=== PATIENT | male | born 1945 | race Caucasian/White ===

== ENCOUNTER → 2020-09-04 13:05 | Outpatient (BNVA) | payer MEDICARE, SELFPAY | PROVIDERS: PCP Internal Medicine; Referring Provider Internal Medicine; Visit Provider Internal Medicine | DX: I48.0 Paroxysmal atrial fibrillation (principal); Z51.81 Encounter for therapeutic drug level monitoring; Z79.01 Long term (current) use of anticoagulants | CPT/HCPCS: 85610; 99211 ==

== ENCOUNTER → 2020-10-02 13:06 | Outpatient (BNVA) | payer MEDICARE, SELFPAY | PROVIDERS: PCP Internal Medicine; Visit Provider Internal Medicine | DX: I48.0 Paroxysmal atrial fibrillation (principal); Z79.01 Long term (current) use of anticoagulants; Z51.81 Encounter for therapeutic drug level monitoring | CPT/HCPCS: 85610; 99211 ==

== ENCOUNTER → 2020-10-30 13:02 | Outpatient (BNVA) | payer MEDICARE, SELFPAY | PROVIDERS: PCP Internal Medicine; Visit Provider Internal Medicine | DX: I48.0 Paroxysmal atrial fibrillation (principal); Z79.01 Long term (current) use of anticoagulants; Z51.81 Encounter for therapeutic drug level monitoring | CPT/HCPCS: 85610; 99211 ==

== ENCOUNTER → 2020-11-27 13:01 | Outpatient (BNVA) | payer MEDICARE, SELFPAY | PROVIDERS: PCP Internal Medicine; Visit Provider Internal Medicine | DX: I48.0 Paroxysmal atrial fibrillation (principal); Z51.81 Encounter for therapeutic drug level monitoring; Z79.01 Long term (current) use of anticoagulants | CPT/HCPCS: 85610; 99211 ==

== ENCOUNTER → 2020-12-25 13:07 | Outpatient (BNVA) | payer MEDICARE, SELFPAY | PROVIDERS: PCP Internal Medicine; Visit Provider Internal Medicine | DX: I48.0 Paroxysmal atrial fibrillation (principal); Z51.81 Encounter for therapeutic drug level monitoring; Z79.01 Long term (current) use of anticoagulants | CPT/HCPCS: 85610; 99211 ==

== ENCOUNTER → 2021-01-22 13:04 | Outpatient (BNVA) | payer MEDICARE, SELFPAY | PROVIDERS: PCP Internal Medicine; Visit Provider Internal Medicine | DX: I48.0 Paroxysmal atrial fibrillation (principal); Z51.81 Encounter for therapeutic drug level monitoring; Z79.01 Long term (current) use of anticoagulants | CPT/HCPCS: 85610; 99211 ==

== ENCOUNTER → 2021-02-19 13:11 | Outpatient (BNVA) | payer MEDICARE, SELFPAY | PROVIDERS: PCP Internal Medicine; Visit Provider Internal Medicine | DX: I48.0 Paroxysmal atrial fibrillation (principal); Z79.01 Long term (current) use of anticoagulants; Z51.81 Encounter for therapeutic drug level monitoring | CPT/HCPCS: 85610; 99211 ==

== ENCOUNTER → 2021-02-25 09:19 | Outpatient (BNVA) | payer MEDICARE, SELFPAY | PROVIDERS: PCP Internal Medicine; Visit Provider Physician Assistant | DX: Z12.11 Encounter for screening for malignant neoplasm of colon (principal); Z79.01 Long term (current) use of anticoagulants | CPT/HCPCS: 99202 ==

== ENCOUNTER → 2021-03-12 13:06 | Outpatient (BNVA) | payer MEDICARE, SELFPAY | PROVIDERS: PCP Internal Medicine; Visit Provider Internal Medicine | DX: I48.0 Paroxysmal atrial fibrillation (principal); Z51.81 Encounter for therapeutic drug level monitoring; Z79.01 Long term (current) use of anticoagulants | CPT/HCPCS: 85610; 99211 ==

== ENCOUNTER 2021-03-15 14:20 | Inpatient (IN) | payer MEDICARE, SELFPAY ==
[2021-03-15] VITALS (9 sets, daily range): BP systolic 122–165; BP diastolic 60–79; PULSE 53–72; RESP 12–18; TEMP 36.2–36.8; O2SAT 100; BMI 27.7
--- NOTE | 2021-03-15 15:05 | ED_ITS ---
HPI - General Adult General Chief complaint: General Medical Stated complaint: abnormal labs Time Seen by Provider: 03/15/21 14:55 Source: patient and line service attendant Mode of arrival: ambulatory Limitations: no limitations and language barrier History of Present Illness HPI narrative: 75-year-old male with a past medical history of hypertension, hyperlipidemia, on chronic anticoagulation but unsure why here with complaints of abnormal labs. The patient is unsure of what lab it was. He told me he had routine screening labs done at his primary 2 days ago and he was called today to come to the ER for an evaluation. Has had some fatigue and weakness. Denies shortness of breath, chest pain, abdominal pain, falls, black or bloody stools. Related Data Home Medications Medication Instructions Recorded Confirmed aspirin 81 mg tablet,delayed 81 mg PO DAILY 02/19/21 02/25/21 release atorvastatin 80 mg tablet 80 mg PO BEDTIME 02/19/21 02/25/21 cholecalciferol (vitamin D3) 25 25 mcg PO DAILY 02/19/21 02/25/21 mcg (1,000 unit) tablet furosemide 20 mg tablet 20 mg PO DAILY 02/19/21 02/19/21 lisinopril 40 mg tablet 40 mg PO DAILY 02/19/21 02/25/21 tamsulosin 0.4 mg capsule 0.4 mg PO DAILY 02/19/21 02/25/21 travoprost 0.004 % eye drops 1 drp OPHTHALMIC (EYE) BEDTIME 02/19/21 02/25/21 Previous Rx's Medication Instructions Recorded warfarin 5 mg tablet 5 mg PO DAILY #90 tab 09/04/20 bisacodyl 5 mg tablet,delayed 10 mg PO ONCE 1 Days #2 tab 02/25/21 release polyethylene glycol 3350 17 238 g PO ONCE 1 Days #238 g 02/25/21 gram/dose oral powder Allergies Allergy/AdvReac Type Severity Reaction Status Date / Time No Known Allergies Allergy Verified 03/12/21 13:24 [No Known Allergies*] Review of Systems Review of Systems: Yes all other systems are reviewed and are negative Constitutional: Constitutional: Reports no additional constitutional complaints, Denies body ache(s), Denies chills, Reports fatigue, Denies fever(s), Denies headache(s) and Reports weakness Eyes: Eyes: Reports no additional eye complaints and Denies change in vision ENT: Reports system reviewed and no additional complaints, except as documented, Denies dizziness, Denies headache(s), Denies nasal congestion, Denies nasal discharge and Denies neck pain Cardiovascular: Cardiovascular: Reports no additional cardiovascular complaints, Denies chest pain, Denies leg edema and Denies dyspnea Respiratory: Respiratory: Reports no additional respiratory complaints, Denies cough and Denies dyspnea Gastrointestinal: Gastrointestinal: Reports no additional gastrointestinal complaints, Denies abdominal pain, Denies hematochezia, Denies diarrhea, Denies nausea and Denies vomiting Genitourinary: Genitourinary: Denies urinary incontinence Musculoskeletal: Musculoskeletal: Reports no additional musculoskeletal complaints, Denies back pain, Denies arthralgias, Denies joint swelling, Denies neck pain, Denies numbness and Denies tingling Integumentary/Breasts: Skin/Breast: Reports system reviewed and no additional complaints, except as docu and Denies rash Neurologic: Reports system reviewed and no additional complaints, except as documented, Denies Abnormal speech present, Denies dizziness, Denies headache(s), Denies numbness, Denies tingling and Reports weakness Endocrine: Endocrine: Reports fatigue [facility] Past Medical History Attestation statement: The following information was validated with the patient. Source: old records reviewed and nursing notes reviewed Medical History Atrial fibrillation Dyslipidemia HTN (hypertension) Tubular adenoma Family History Family History Father Throat cancer Brother Prostate cancer Social History Social History Household Members: None Alcohol intake: never Smoking Status: Never smoker Use of substances other than those prescribed or required for medical reasons: No Advance Directives: No Advance Directives Information Provided: Yes Current occupational status: retired Physical Exam Vital Signs: Vital Signs: Last Vital Signs Temp 98.3 F 03/15/21 17:35 Pulse 57 03/15/21 17:35 Resp 18 03/15/21 17:35 BP 162/63 H 03/15/21 17:35 Pulse Ox 100 03/15/21 16:48 Body Mass Index 27.7 Const: General: cooperative, healthy appearing, comfortable and no acute distress Orientation/consciousness: patient oriented x3 Limitations: no limitations HENMT: Head: Yes normal to inspection Ears: hearing grossly normal bilaterally General nose exam: Normal external nose present Face and sinus: Yes normal facial exam Mouth: Normal oral and palatal mucosa present Throat: Yes posterior oropharynx normal Eyes: General: appearance normal, both eyes and all related structures Pupils: Equal, round and reactive pupils present Neck: Neck: Yes normal visual inspection Chest: Chest palpation & inspection: normal inspection of the chest Resp: Effort & Inspection: normal respiratory effort Auscultation: clear to auscultation bilaterally Cardio: Rate: regular rate Rhythm: regular rhythm Peripheral pulses: Peripheral pulses 2+ throughout GI: Inspection: Yes normal to inspection Palpation (GI): Soft to palpation and nontender Auscultation: normal bowel sounds Back/Spine/Pelvis: Thoracic/Lumbar Spine: thoracic and lumbar spine normal to inspection Skin: General skin exam: no rashes or lesions noted Neuro: General: patient oriented x3, no focal motor deficits and normal sensation to monofilament Cranial nerves: Yes Equal, round and reactive pupils present Cognition (Neuro): normal cognition Speech: No Abnormal speech present Gait exam (Neuro): Normal gait present Motor exam (neuro): 5/5 motor strength present throughout Extrem: General: Yes normal to inspection Course Course Course Narrative: 75-year-old male here for abnormal labs but he is unsure what lab it was. He does tell me it was part of a routine screening. He is on chronic Coumadin for unknown reason for patient. C/o fatigue and weakness. Will check labs -labs show a microcytic anemia. Likely ENRIQUE. Symptomatic with generalized weakness and fatigue. No active bleeding. Stool exam shows brown stool which is heme negative. Labs show mildly elevated renal function. INR is 2.5 which is therapeutic. Orthostatics negative. Patient was consented for blood with a plugging machine operator. Will plan for admission I did discuss with Imani SCHULTZ who accepted admission of the patient Medical Decision Making Medical Records Medical records reviewed: Yes I reviewed the patient's medical records. Lab Data Lab results reviewed: Yes I reviewed the patient's lab results. Result diagrams: 03/15/21 15:12 03/15/21 15:12 Labs: Lab Results 03/15/21 03/15/21 03/15/21 Range/Units 15:12 15:12 15:12 WBC 4.5 L (4.8-10.8) X10*3/uL RBC 3.21 L (4.60-5.80) X10*6/uL Hgb 7.0 L* (14.0-18.0) g/dl Hct 24.7 L (42-52) % MCV 76.9 L (80-98) fL MCH 21.8 L (27.0-33.0) pg MCHC 28.3 L (31.0-36.0) g/dl RDW 19.2 H (11.0-16.0) % Plt Count 203 (160-400) X10*3/uL MPV 9.5 (9.4-12.4) fL Immature Gran % (Auto) 0.2 (0.0-0.4) % Neut % (Auto) 52.2 (45-73) % Lymph % (Auto) 26.7 (20-40) % [place] % (Auto) 15.1 H (2-11) % Eos % (Auto) 5.6 H (0-4) % Baso % (Auto) 0.2 (0-2) % Lymph # (Auto) 1.2 (1.2-4.9) X10*3/uL [place] # (Auto) 0.7 (0.1-1.2) X10*3/uL Eos # (Auto) 0.3 (0.0-0.4) X10*3/uL Baso # (Auto) 0.0 (0.0-0.2) X10*3/uL Abs Immat Gran (auto) 0.01 (0.00-0.03) X10*3/uL Absolute Neuts (auto) 2.4 (2.0-8.3) X10*3/uL Absolute Nucleated RBC 0.000 (0.0-0.012) X10*3/uL Nucleated RBC % (auto) 0.0 (0.0-0.2) /100WBC PT 29.4 H (10.8-13.0) SEC INR 2.5 H (0.9-1.1) Sodium 138 (135-145) mmol/L Potassium 4.1 (3.3-5.1) mmol/L Chloride 107 (96-108) mmol/L Carbon Dioxide 24 (22-29) mmol/L Anion Gap 11 L (12-20) BUN 18 H (9-16) mg/dL Creatinine 1.44 H (0.5-1.4) mg/dL Estim Creat Clear Calc 48.7 Estimated GFR 48 Random Glucose 99 (60-115) mg/dL Calcium 8.3 L (8.4-10.2) mg/dL Iron 20 L (45-160) mcg/dL TIBC 444 H (228-428) mcg/dL % Saturation 5 L (15-50) % Unsat Iron Binding 424 ug/dL Total Bilirubin (0.0-1.0) mg/dL Direct Bilirubin (0.0-0.5) mg/dL AST (5-37) U/L ALT (0-40) U/L Alkaline Phosphatase (39-117) U/L Total Protein (6.5-8.0) g/dL Albumin (3.5-5.0) g/dL Urine Color Urine Appearance Urine pH (5.0-8.0) Ur Specific [place] (1.005-1.025) Urine Protein (NEG-TRACE) MG/DL Urine Glucose (UA) (NEG) MG/DL Urine Ketones (NEG) MG/DL Urine Blood (NEG) Urine Nitrite (NEG) Ur Leukocyte Esterase (NEG) Stool Occult Blood (NEGATIVE) COVID-19 (NILAM) (Negative) COVID-19 Clin Com Blood Type Antibody Screen Crossmatch 03/15/21 03/15/21 03/15/21 Range/Units 15:12 15:55 15:55 WBC (4.8-10.8) X10*3/uL RBC (4.60-5.80) X10*6/uL Hgb (14.0-18.0) g/dl Hct (42-52) % MCV (80-98) fL MCH (27.0-33.0) pg MCHC (31.0-36.0) g/dl RDW (11.0-16.0) % Plt Count (160-400) X10*3/uL MPV (9.4-12.4) fL Immature Gran % (Auto) (0.0-0.4) % Neut % (Auto) (45-73) % Lymph % (Auto) (20-40) % [place] % (Auto) (2-11) % Eos % (Auto) (0-4) % Baso % (Auto) (0-2) % Lymph # (Auto) (1.2-4.9) X10*3/uL [place] # (Auto) (0.1-1.2) X10*3/uL Eos # (Auto) (0.0-0.4) X10*3/uL Baso # (Auto) (0.0-0.2) X10*3/uL Abs Immat Gran (auto) (0.00-0.03) X10*3/uL Absolute Neuts (auto) (2.0-8.3) X10*3/uL Absolute Nucleated RBC (0.0-0.012) X10*3/uL Nucleated RBC % (auto) (0.0-0.2) /100WBC PT (10.8-13.0) SEC INR (0.9-1.1) Sodium (135-145) mmol/L Potassium (3.3-5.1) mmol/L Chloride (96-108) mmol/L Carbon Dioxide (22-29) mmol/L Anion Gap (12-20) BUN (9-16) mg/dL Creatinine (0.5-1.4) mg/dL Estim Creat Clear Calc Estimated GFR Random Glucose (60-115) mg/dL Calcium (8.4-10.2) mg/dL Iron (45-160) mcg/dL TIBC (228-428) mcg/dL % Saturation (15-50) % Unsat Iron Binding ug/dL Total Bilirubin 0.8 (0.0-1.0) mg/dL Direct Bilirubin 0.3 (0.0-0.5) mg/dL AST 18 (5-37) U/L ALT 19 (0-40) U/L Alkaline Phosphatase 121 H (39-117) U/L Total Protein 7.2 (6.5-8.0) g/dL Albumin 4.0 (3.5-5.0) g/dL Urine Color Urine Appearance Urine pH (5.0-8.0) Ur Specific [place] (1.005-1.025) Urine Protein (NEG-TRACE) MG/DL Urine Glucose (UA) (NEG) MG/DL Urine Ketones (NEG) MG/DL Urine Blood (NEG) Urine Nitrite (NEG) Ur Leukocyte Esterase (NEG) Stool Occult Blood NEGATIVE (NEGATIVE) COVID-19 (NILAM) (Negative) COVID-19 Clin Com Blood Type A Positive Antibody Screen NEGATIVE Crossmatch See Detail 03/15/21 03/15/21 Range/Units 16:16 16:16 WBC (4.8-10.8) X10*3/uL RBC (4.60-5.80) X10*6/uL Hgb (14.0-18.0) g/dl Hct (42-52) % MCV (80-98) fL MCH (27.0-33.0) pg MCHC (31.0-36.0) g/dl RDW (11.0-16.0) % Plt Count (160-400) X10*3/uL MPV (9.4-12.4) fL Immature Gran % (Auto) (0.0-0.4) % Neut % (Auto) (45-73) % Lymph % (Auto) (20-40) % [place] % (Auto) (2-11) % Eos % (Auto) (0-4) % Baso % (Auto) (0-2) % Lymph # (Auto) (1.2-4.9) X10*3/uL [place] # (Auto) (0.1-1.2) X10*3/uL Eos # (Auto) (0.0-0.4) X10*3/uL Baso # (Auto) (0.0-0.2) X10*3/uL Abs Immat Gran (auto) (0.00-0.03) X10*3/uL Absolute Neuts (auto) (2.0-8.3) X10*3/uL Absolute Nucleated RBC (0.0-0.012) X10*3/uL Nucleated RBC % (auto) (0.0-0.2) /100WBC PT (10.8-13.0) SEC INR (0.9-1.1) Sodium (135-145) mmol/L Potassium (3.3-5.1) mmol/L Chloride (96-108) mmol/L Carbon Dioxide (22-29) mmol/L Anion Gap (12-20) BUN (9-16) mg/dL Creatinine (0.5-1.4) mg/dL Estim Creat Clear Calc Estimated GFR Random Glucose (60-115) mg/dL Calcium (8.4-10.2) mg/dL Iron (45-160) mcg/dL TIBC (228-428) mcg/dL % Saturation (15-50) % Unsat Iron Binding ug/dL Total Bilirubin (0.0-1.0) mg/dL Direct Bilirubin (0.0-0.5) mg/dL AST (5-37) U/L ALT (0-40) U/L Alkaline Phosphatase (39-117) U/L Total Protein (6.5-8.0) g/dL Albumin (3.5-5.0) g/dL Urine Color STRAW Urine Appearance CLEAR Urine pH 5.5 (5.0-8.0) Ur Specific [place] <= 1.005 (1.005-1.025) Urine Protein NEG (NEG-TRACE) MG/DL Urine Glucose (UA) NEG (NEG) MG/DL Urine Ketones NEG (NEG) MG/DL Urine Blood NEG (NEG) Urine Nitrite NEG (NEG) Ur Leukocyte Esterase NEG (NEG) Stool Occult Blood (NEGATIVE) COVID-19 (NILAM) Negative (Negative) COVID-19 Clin Com See Note Blood Type Antibody Screen Crossmatch Discharge Plan Discharge Clinical Impression: Anemia Patient Disposition: Admitted As Inpatient Prescriptions: No Action polyethylene glycol 3350 [Miralax] 17 gram/dose powder 238 g PO ONCE 1 Days Qty: 238 RF: 0 bisacodyl [Dulcolax (bisacodyl)] 5 mg tablet,delayed release (DR/EC) 10 mg PO ONCE 1 Days Qty: 2 RF: 0 warfarin 5 mg tablet 5 mg PO DAILY Qty: 90 RF: 0 lisinopril 40 mg tablet 40 mg PO DAILY RF: 0 cholecalciferol (vitamin D3) 25 mcg (1,000 unit) tablet 25 mcg PO DAILY RF: 0 furosemide 20 mg tablet 20 mg PO DAILY RF: 0 travoprost 0.004 % drops 1 drp ophthalmic (eye) BEDTIME RF: 0 aspirin 81 mg tablet,delayed release (DR/EC) 81 mg PO DAILY RF: 0 atorvastatin 80 mg tablet 80 mg PO BEDTIME RF: 0 tamsulosin 0.4 mg capsule 0.4 mg PO DAILY RF: 0
[2021-03-15 15:17] LABS: MANUAL DIFF FLAG NO
[2021-03-15 15:18] LABS: Basophils Percent Auto 0.2 % (0-2); Platelet Count 203 X10*3/uL (160-400)
[2021-03-15 15:22] LABS: Eosinophils Absolute Auto 0.3 X10*3/uL (0.0-0.4); Eosinophils Percent Auto 5.6 % (0-4); Hematocrit 24.7 % (42-52); Imm Gran Abs Auto 0.01 X10*3/uL (0.00-0.03); Imm Gran Pct Auto 0.2 % (0.0-0.4); Lymphocytes Absolute Auto 1.2 X10*3/uL (1.2-4.9); Lymphocytes Percent Auto 26.7 % (20-40); Mean Corpuscular HGB Conc 28.3 g/dl (31.0-36.0); Mean Corpuscular Hemoglobin 21.8 pg (27.0-33.0); Mean Corpuscular Volume 76.9 fL (80-98); Mean Platelet Volume 9.5 fL (9.4-12.4); Monocytes Absolute Auto 0.7 X10*3/uL (0.1-1.2); Monocytes Percent Auto 15.1 % (2-11); Neutrophils Absolute Auto 2.4 X10*3/uL (2.0-8.3); Neutrophils Percent Auto 52.2 % (45-73); Red Blood Count 3.21 X10*6/uL (4.60-5.80); Red Cell Distribution Width 19.2 % (11.0-16.0); White Blood Count 4.5 X10*3/uL (4.8-10.8)
[2021-03-15 15:23] LABS: INTERNATIONAL NORM RATIO 2.5 (0.9-1.1); Prothrombin Time 29.4 SEC (10.8-13.0)
[2021-03-15 15:46] LABS: Anion Gap 11 (12-20); Blood Urea Nitrogen 18 mg/dL (9-16); Calcium 8.3 mg/dL (8.4-10.2); Carbon Dioxide 24 mmol/L (22-29); Chloride 107 mmol/L (96-108); Creatinine Clr Calc Pharmacy 48.7; Estimated Glomerular Filt Rate 48; Glucose Random 99 mg/dL (60-115); Potassium 4.1 mmol/L (3.3-5.1); Sodium 138 mmol/L (135-145)
[2021-03-15 15:48] LABS: Alanine Aminotransferase 19 U/L (0-40); Alkaline Phosphatase 121 U/L (39-117); Aspartate Amino Transferase 18 U/L (5-37); Bilirubin Direct 0.3 mg/dL (0.0-0.5); Bilirubin Total 0.8 mg/dL (0.0-1.0); Total Protein 7.2 g/dL (6.5-8.0)
[2021-03-15 16:15] LABS: OBS Int Ctl Valid YES; OBS1 NEGATIVE (NEGATIVE)
[2021-03-15 16:29] LABS: Glucose Urine UA NEG (NEG); Leukocyte Esterase Urine NEG (NEG); Nitrite Urine NEG (NEG); PH 5.5 (5.0-8.0); Specific Gravity - Urine <= 1.005 (1.005-1.025); Urine Blood NEG (NEG); Urine Ketones NEG (NEG); Urine Protein NEG (NEG-TRACE)
[2021-03-15 16:30] LABS: Appearance Urine CLEAR; Color Urine STRAW
[2021-03-15 16:45] LABS: COVID-19 Test Negative (Negative)
[2021-03-15 17:43] LABS: Iron 20 mcg/dL (45-160); Percent Iron Saturation 5 % (15-50); Total Iron Binding Capacity 444 mcg/dL (228-428); Unsaturated Iron Binding 424 ug/dL
--- NOTE | 2021-03-15 17:45 | ECG_ITS ---
Test Reason : GENERAL MEDICAL Blood Pressure : / mmHG Vent. Rate : 059 BPM Atrial Rate : 045 BPM P-R Int : 000 ms QRS Dur : 100 ms QT Int : 440 ms P-R-T Axes : 000 -29 -01 degrees QTc Int : 435 ms Atrial fibrillation with slow ventricular response Incomplete right bundle branch block Cannot rule out Anteroseptal infarct , age undetermined Abnormal ECG No previous ECGs available Referred By: Generic ED Physician Electronically Signed By:KATHERYN ASH
--- NOTE | 2021-03-15 17:52 | PC.NURSE ---
PT TOLERATING RBC TRANSFUSION WELL, VS WNL, AFIB HR IN 60S ON MONITOR. HOSPITALIST TO ADMIT, PT AWARE OF PLAN FOR CARE
--- NOTE | 2021-03-15 18:02 | P.HPHOSP_ITS ---
History of Present Illness Date of Service: 03/15/21 <ANTOINE Aviles - Last Filed: 03/16/21 06:59> Chief Complaint: Abnormal labs <ANTOINE Aviles - Last Filed: 03/16/21 06:59> This is a 75-year-old Slovenian-speaking male who was sent to the emergency department due to abnormal labs. Patient states that he had routine labs drawn and was called by his PCP to come to the emergency department for evaluation. Lab work revealed anemia with H/H of 7.0/24.7. Stool occult blood was negative. Patient denies any dark or bloody stools. He is anticoagulated with Coumadin for atrial fibrillation. He states that he was feeling weak last week but at the moment he feels okay. He denies any dizziness shortness of breath or chest pain. 1 unit of blood was ordered in the emergency department and transfusion has been initiated. It appears he was seen recently in the outpatient setting for colonoscopy screening, it appears that this has not been scheduled at this time. <ANTOINE Aviles - Last Filed: 03/16/21 06:59> Review of Systems Review of Systems: Yes all other systems are reviewed and are negative <ANTOINE Aviles - Last Filed: 03/16/21 06:59> Constitutional: Constitutional: Denies chills and Denies fever(s) <ANTOINE Aviles - Last Filed: 03/16/21 06:59> Cardiovascular: Cardiovascular: Denies chest pain <ANTOINE Aviles - Last Filed: 03/16/21 06:59> Respiratory: Respiratory: Denies cough <ANTOINE Aviles - Last Filed: 03/16/21 06:59> Gastrointestinal: Gastrointestinal: Denies abdominal pain, Denies melena, Denies hematochezia, Denies change in bowel habits, Denies diarrhea, Denies nausea and Denies vomiting <ANTOINE Aviles - Last Filed: 03/16/21 06:59> [facility] Medical History: Medical History Atrial fibrillation Dyslipidemia HTN (hypertension) Tubular adenoma <ANTOINE Aviles - Last Filed: 03/16/21 06:59> Functional capacity: independent ambulation <ANTOINE Aviles - Last Filed: 03/16/21 06:59> Family History: Family History Father Throat cancer Brother Prostate cancer <ANTOINE Aviles - Last Filed: 03/16/21 06:59> Social History: Social History Household Members: None Housing: Apartment Do you presently have visiting nurse or other home services: No Alcohol intake: never Smoking Status: Never smoker Use of substances other than those prescribed or required for medical reasons: No Currently Displaying Signs/Symptoms of Drug Intoxication Withdrawal: No Have you been hit, kicked, punched, or otherwise hurt by someone within the past year? If so, by whom?: No Do you feel safe in your current relationship?: Yes Is there a partner from a previous relationship who is making you feel unsafe now?: No Are you made to feel afraid or neglected: No Advance Directives: No Advance Directives Information Provided: Yes Do you have thoughts of harming others: None Do you have a plan to hurt others: No Plan Recently lost weight without trying: No Nutrition Risks: No Nutritional Risk Poor oral hygiene: No Current occupational status: retired <ANTOINE Aviles - Last Filed: 03/16/21 06:59> Meds Allergies/Adverse reactions: Allergies Allergy/AdvReac Type Severity Reaction Status Date / Time No Known Allergies Allergy Verified 03/12/21 13:24 [No Known Allergies*] <ANTOINE Aviles - Last Filed: 03/16/21 06:59> Active Medications: Current Medications Generic Name Dose Route Start Last Admin Trade Name Freq PRN Reason Stop Dose Admin Pharmacy Consult 1 each 03/15/21 16:09 Consult Rx Perform Med Rec MISCELLANE ONCE PRN Consult order <ANTOINE Aviles - Last Filed: 03/16/21 06:59> Home medications: Home Medications Medication Instructions Recorded Confirmed Last Taken Type aspirin 81 mg tablet,delayed 81 mg PO DAILY 02/19/21 03/15/21 Unknown History release atorvastatin 80 mg tablet 80 mg PO BEDTIME 02/19/21 03/15/21 Unknown History cholecalciferol (vitamin D3) 25 25 mcg PO DAILY 02/19/21 03/15/21 Unknown History mcg (1,000 unit) tablet furosemide 20 mg tablet 20 mg PO DAILY 02/19/21 03/15/21 Unknown History lisinopril 40 mg tablet 40 mg PO DAILY 02/19/21 03/15/21 Unknown History travoprost 0.004 % eye drops 1 drp OPHTHALMIC (EYE) BEDTIME 02/19/21 03/15/21 Unknown History <ANTOINE Aviles Last Filed: 03/16/21 06:59> Physical Exam Vital Signs and Narrative: Vital Signs: Last Vital Signs Temp 98.2 F 03/15/21 17:49 Pulse 61 03/15/21 17:49 Resp 14 03/15/21 17:49 BP 162/73 H 03/15/21 17:49 Pulse Ox 100 03/15/21 16:48 Body Mass Index 27.7 <ANTOINE Aviles Last Filed: 03/16/21 06:59> Const: General: comfortable, no acute distress, alert and awake <ANTOINE Aviles Last Filed: 03/16/21 06:59> Nutritional Appearance: well nourished <ANTOINE Aviles Last Filed: 03/16/21 06:59> Orientation/consciousness: patient oriented x3 <ANTOINE Aviles Last Filed: 03/16/21 06:59> HENMT: Head: Yes normocephalic and Yes atraumatic <ANTOINE Aviles Last Filed: 03/16/21 06:59> Eyes: Sclerae: sclerae normal <ANTOINE Aviles Last Filed: 03/16/21 06:59> Chest: Chest palpation & inspection: normal inspection of the chest <ANTOIEN Aviles Last Filed: 03/16/21 06:59> Resp: Effort & Inspection: normal respiratory effort and no respiratory distress <ANTOINE Aviles Last Filed: 03/16/21 06:59> Cardio: Rate: regular rate <ANTOINE Aviles Last Filed: 03/16/21 06:59> Rhythm: abnormal rhythm irregularly irregular <ANTOINE Aviles Last Filed: 03/16/21 06:59> GI: Palpation (GI): Soft to palpation and nontender <ANTOINE Aviles - Last Filed: 03/16/21 06:59> Skin: General skin exam: no rashes or lesions noted <ANTOINE Aviles - Last Filed: 03/16/21 06:59> Neuro: General: patient oriented x3 <ANTOINE Aviles - Last Filed: 03/16/21 06:59> Cranial nerves: Yes CN's II-XII intact bilaterally and Yes Bilaterally intact EOM present <ANTOINE Aviles Last Filed: 03/16/21 06:59> Extrem: General: Yes normal to inspection <ANTOINE Aviles - Last Filed: 03/16/21 06:59> Results Labs CBC and Chem 7: : 03/16/21 07:06 03/16/21 07:06 <ANTOINE Aviles - Last Filed: 03/16/21 06:59> Labs: Laboratory Results - last 24 hr 03/15/21 03/15/21 03/15/21 15:12 15:12 15:12 MCV 76.9 L MCH 21.8 L MCHC 28.3 L RDW 19.2 H Plt Count 203 MPV 9.5 Immature Gran % (Auto) 0.2 Neut % (Auto) 52.2 Lymph % (Auto) 26.7 [place] % (Auto) 15.1 H Eos % (Auto) 5.6 H Baso % (Auto) 0.2 Lymph # (Auto) 1.2 [place] # (Auto) 0.7 Eos # (Auto) 0.3 Baso # (Auto) 0.0 Abs Immat Gran (auto) 0.01 Absolute Neuts (auto) 2.4 Absolute Nucleated RBC 0.000 Nucleated RBC % (auto) 0.0 PT 29.4 H INR 2.5 H Anion Gap 11 L Estim Creat Clear Calc 48.7 Estimated GFR 48 Random Glucose 99 Calcium 8.3 L Iron 20 L TIBC 444 H % Saturation 5 L Unsat Iron Binding 424 Total Bilirubin Direct Bilirubin AST ALT Alkaline Phosphatase Total Protein Albumin Urine Color Urine Appearance Urine pH Ur Specific [place] Urine Protein Urine Glucose (UA) Urine Ketones Urine Blood Urine Nitrite Ur Leukocyte Esterase Stool Occult Blood COVID-19 (NILAM) COVID-19 Clin Com Blood Type Antibody Screen Crossmatch 03/15/21 03/15/21 03/15/21 15:12 15:55 15:55 MCV MCH MCHC RDW Plt Count MPV Immature Gran % (Auto) Neut % (Auto) Lymph % (Auto) [place] % (Auto) Eos % (Auto) Baso % (Auto) Lymph # (Auto) [place] # (Auto) Eos # (Auto) Baso # (Auto) Abs Immat Gran (auto) Absolute Neuts (auto) Absolute Nucleated RBC Nucleated RBC % (auto) PT INR Anion Gap Estim Creat Clear Calc Estimated GFR Random Glucose Calcium Iron TIBC % Saturation Unsat Iron Binding Total Bilirubin 0.8 Direct Bilirubin 0.3 AST 18 ALT 19 Alkaline Phosphatase 121 H Total Protein 7.2 Albumin 4.0 Urine Color Urine Appearance Urine pH Ur Specific [place] Urine Protein Urine Glucose (UA) Urine Ketones Urine Blood Urine Nitrite Ur Leukocyte Esterase Stool Occult Blood NEGATIVE COVID-19 (NILAM) COVID-[employer] Com Blood Type A Positive Antibody Screen NEGATIVE Crossmatch See Detail 03/15/21 03/15/21 16:16 16:16 MCV MCH MCHC RDW Plt Count MPV Immature Gran % (Auto) Neut % (Auto) Lymph % (Auto) [place] % (Auto) Eos % (Auto) Baso % (Auto) Lymph # (Auto) [place] # (Auto) Eos # (Auto) Baso # (Auto) Abs Immat Gran (auto) Absolute Neuts (auto) Absolute Nucleated RBC Nucleated RBC % (auto) PT INR Anion Gap Estim Creat Clear Calc Estimated GFR Random Glucose Calcium Iron TIBC % Saturation Unsat Iron Binding Total Bilirubin Direct Bilirubin AST ALT Alkaline Phosphatase Total Protein Albumin Urine Color STRAW Urine Appearance CLEAR Urine pH 5.5 Ur Specific [place] <= 1.005 Urine Protein NEG Urine Glucose (UA) NEG Urine Ketones NEG Urine Blood NEG Urine Nitrite NEG Ur Leukocyte Esterase NEG Stool Occult Blood COVID-19 (NILAM) Negative COVID-[facility] Clin Com See Note Blood Type Antibody Screen Crossmatch <ANTOINE Aviles - Last Filed: 03/16/21 06:59> Assessment and Plan (1) Iron deficiency anemia: Problem details: Chronic iron deficiency anemia <ANTOINE Aviles - Last Filed: 03/16/21 06:59> Status: Acute <ANTOINE Aviles - Last Filed: 03/16/21 06:59> This is a 75-year-old Slovenian-speaking male with history of atrial fibrillation on Coumadin, hypertension sent to the emergency department with abnormal labs found to have anemia. Microcytic anemia Iron studies consistent with iron deficiency. Heme-negative stool. h/o adenoma on colonoscopy from 2014, plan for outpatient colonoscopy in near future, but has not been scheduled yet -blood transfusion started in ED -clears -recheck FOBT -GI evaluation -hold Coumadin -follow CBC atrial fibrillation rate controlled -hold Coumadin med rec pending at this time dvt ppx - mechanical devices code status - full code attending: dr. zhang <ANTOINE Aviles - Last Filed: 03/16/21 06:59>
[2021-03-15 18:03] LABS: Ferritin 14 ng/mL (20-250)
--- NOTE | 2021-03-15 18:30 | PM.EVENT ---
Event Note Date of Service: 03/15/21 Event Note: Patient seen examined case discussed with APC 75-year-old gentleman sent by PCP due to anemia hematocrit 24.7 patient denies GI bleed is on Coumadin for atrial fibrillation has been feeling weak for 1 week On examination Awake alert no distress Lungs clear to auscultation Heart regular Extremities no edema Iron deficiency anemia ? likely due to GI blood loss last hematocrit is from 2 years ago was 31, INR is therapeutic since patient has generalized weakness will transfuse him with 1 unit of packed RBC hold Coumadin obtain GI consultation for possible endoscopy, continue home medication except hold aspirin and Coumadin
--- NOTE | 2021-03-15 20:29 | PC.NURSE ---
report given to RN
--- NOTE | 2021-03-15 20:43 | PC.NURSE ---
PT TO BE TRANSFERRED TO [facility]. PT REMAINS IN AFIB, STABLE AT THIS TIME. DISCUSSED WITH SURVEILLANCE OBSERVER, PT APPROVED FOR TRANSFER.
[2021-03-15] MEDS: 0.9 % Sodium Chloride Flush 3 ML SYRINGE IVFLUSH (21:48)
[2021-03-16] VITALS: BP 151/75; PULSE 58; RESP 14; TEMP 36.4; O2SAT 100
[2021-03-16 04:00] VITALS: BP 156/68; PULSE 54; RESP 15; TEMP 36.2; O2SAT 99
[2021-03-16 07:21] LABS: Hematocrit 27.2 % (42-52); Hemoglobin 7.8 g/dl (14.0-18.0); Mean Corpuscular HGB Conc 28.7 g/dl (31.0-36.0); Mean Corpuscular Hemoglobin 22.4 pg (27.0-33.0); Mean Corpuscular Volume 78.2 fL (80-98); Mean Platelet Volume 9.8 fL (9.4-12.4); Platelet Count 186 X10*3/uL (160-400); Red Blood Count 3.48 X10*6/uL (4.60-5.80); Red Cell Distribution Width 19.4 % (11.0-16.0); White Blood Count 4.8 X10*3/uL (4.8-10.8)
[2021-03-16 07:25] LABS: INTERNATIONAL NORM RATIO 2.2 (0.9-1.1); Prothrombin Time 26.7 SEC (10.8-13.0)
[2021-03-16] MEDS: 0.9 % Sodium Chloride Flush 3 ML SYRINGE IVFLUSH ×2 (07:30→15:37)
[2021-03-16 07:49] LABS: Anion Gap 9 (12-20); Blood Urea Nitrogen 17 mg/dL (9-16); Calcium 8.3 mg/dL (8.4-10.2); Carbon Dioxide 25 mmol/L (22-29); Chloride 112 mmol/L (96-108); Creatinine Clr Calc Pharmacy 62.6; Estimated Glomerular Filt Rate > 60; Glucose Random 78 mg/dL (60-115); Potassium 4.5 mmol/L (3.3-5.1); Sodium 141 mmol/L (135-145)
[2021-03-16 08:00] VITALS: BP 173/78; PULSE 63; RESP 17; TEMP 36.7; O2SAT 100
[2021-03-16] MEDS: Cholecalciferol (Vitamin D3) 25 MCG TABLET PO (08:27)
[2021-03-16 10:09] LABS: B Type Natriuretic Peptide 905 pg/mL (<100)
[2021-03-16] MEDS: Phytonadione (Vit K1) 5 MG in 0.9 % Sodium Chloride 50 ML 50.5 MG IV (10:37)
--- NOTE | 2021-03-16 10:54 | PM.GICN ---
History of Present Illness Data of Consult Service Date: 03/16/21 Requesting physician: Imani Hawkins Primary Care Provider: Pedro Webber MD HPI Reason for consult: Severe iron deficiency anemia Patient is a 75-year-old Yoruba-speaking male who presented to [facility] ED yesterday due to abnormal labs (advised to go to ED by his PCP): HPI narrative: 75-year-old male with a past medical history of hypertension, hyperlipidemia, on chronic anticoagulation but unsure why here with complaints of abnormal labs. The patient is unsure of what lab it was. He told me he had routine screening labs done at his primary 2 days ago and he was called today to come to the ER for an evaluation. Has had some fatigue and weakness. Denies shortness of breath, chest pain, abdominal pain, falls, black or bloody stools . Labs showed microcytic anemia with H&H of 7 and 24.7 (12/2018 H & H was 10.2 & 31.2) . Likely ENRIQUE. Iron studies are consistent with iron deficiency anemia with ferritin of 14. Stool exam shows brown stool which is heme negative. Labs show mildly elevated renal function. INR is 2.5 which is therapeutic. Patient was not orthostatic. Patient was admitted, warfarin was placed on hold and he was transfused 2 units of packed RBCs over night. Repeat H&H today was 7.8 and 27.2 Repeat INR was 2.2. IMAGING STUDIES: DEC [address] SCAN SHOWED: 1. Generalized bladder wall thickening consistent with cystitis. 2. Mild flat stranding adjacent to seminal vesicles possibly of infectious or inflammatory etiology 3. No urinary calculus or obstructive uropathy. 4. 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 SARGENT FOR COLON CANCER SCREENING: A diminutive tubular adenoma was removed from 45 cm. Repeat colonoscopy was advised in 5 years. 01/2005 COLONOSCOPY WAS PERFORMED BY DR. DONIS FOR EVALUATION OF IRON DEFICIENCY ANEMIA: Colonoscopy was negative except for small internal hemorrhoids. Patient denies having an EGD in the past History obtained from the patient with the help of a roaster supervisor. Patient complains of intermittent heartburn, decreased appetite and constipation. He denies symptoms of dysphagia, nausea, vomiting, change in weight. Denies recent change in bowel habits, diarrhea, black stools or rectal bleeding. Patient was scheduled for a colonoscopy last year and had to cancel his appointment since he was admitted after having a reaction to the shingles vaccine. Patient is on chronic anticoagulation with warfarin for atrial fibrillation. Patient denies known family history of colon polyps, colon cancer or other GI malignancies. 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 He has 4 children and multiple grandchildren. Dad of throat cancer. Paternal grandmother had stomach cancer. A brother had prostate cancer. Review of Systems Constitutional: Constitutional: Reports fatigue, Denies fever(s), Denies headache(s) and Denies weight loss Eyes: Eyes: Denies eye discharge and Denies irritation ENT: Reports Normal hearing present, Denies dysphagia, Denies dizziness and Denies headache(s) Cardiovascular: Cardiovascular: Denies chest pain, Denies leg edema and Denies dyspnea on exertion Respiratory: Respiratory: Denies cough, Denies dyspnea on exertion and Denies wheezing Gastrointestinal: Gastrointestinal: Denies abdominal pain, Denies change in bowel habits, Denies dysphagia and Denies heartburn Genitourinary: Genitourinary: Denies dysuria Musculoskeletal: Musculoskeletal: Denies back pain and Denies arthralgias Integumentary/Breasts: Skin/Breast: Denies pruritus, Denies rash and Denies jaundice Neurologic: Reports Normal hearing present, Denies Abnormal speech present, Denies dizziness, Denies headache(s) and Denies seizure-like activity Psychiatric: Psychiatric: Denies anxiety, Denies depression and Denies panic attacks Endocrine: Endocrine: Denies cold intolerance, Reports fatigue, Denies flushing and Denies heat intolerance Hematologic/Lymphatic: Hematologic/Lymphatic: Denies easy bleeding and Denies easy bruising Allergic/Immunologic: Allergic/Immunologic: Denies wheezing PMFSH Past Medical History Medical History Atrial fibrillation Dyslipidemia HTN (hypertension) Tubular adenoma Functional capacity: independent ambulation Family History Family History Father Throat cancer Brother Prostate cancer Social History Social History Household Members: None Housing: Apartment Do you presently have visiting nurse or other home services: No Alcohol intake: never Smoking Status: Never smoker Current occupational status: retired Meds Allergies Allergy/AdvReac Type Severity Reaction Status Date / Time No Known Allergies Allergy Verified 03/12/21 13:24 [No Known Allergies*] Active Medications: Current Medications Generic Name Dose Route Start Last Admin Trade Name Freasif PRN Reason Stop Dose Admin Acetaminophen 650 mg 03/15/21 18:56 Acetaminophen 325 Mg Tablet PO Q6H PRN Pain, Mild (Pain Scale 1-3) Bisacodyl 10 mg 03/16/21 13:00 Bisacodyl 5 Mg Tablet. PO 03/16/21 13:01 ONCE@1300 ONE Docusate Sodium 100 mg 03/15/21 18:56 Docusate Sodium 100 Mg Capsule PO DAILY PRN Constipation Latanoprost 1 drop 03/16/21 21:00 Latanoprost 0.005 % Ophth Yenni 2.5 Ml Drops EYE-BOTH BEDTIME VIKTOR Ondansetron HCl 4 mg 03/15/21 18:56 Ondansetron Hcl 4 Mg/2 Ml Vial IVPUSH Q8H PRN Nausea and Vomiting Pharmacy Consult 1 each 03/15/21 16:09 Consult Rx Perform Med Rec MISCELLANE ONCE PRN Consult order Polyethylene Glycol/Electrolytes 4,000 ml 03/16/21 14:00 Peg 3350/Na Sulf,Bicarb,Cl/Kcl 4,000 Ml Soln.Recon PO 03/16/21 14:01 ONCE@1400 ONE Sodium Chloride 3 ml 03/16/21 00:00 03/16/21 07:30 0.9 % Sodium Chloride Flush 3 Ml Syringe IVFLUSH 3 ml QSHIFT VIKTOR Administration Vitamin D 25 mcg 03/16/21 09:00 03/16/21 08:27 Cholecalciferol (Vitamin D3) 25 Mcg Tablet PO 25 mcg DAILY VIKTOR Administration Home Medications Medication Instructions Recorded Confirmed Last Taken Type aspirin 81 mg tablet,delayed 81 mg PO DAILY 02/19/21 03/18/21 Unknown History release atorvastatin 80 mg tablet 80 mg PO BEDTIME 02/19/21 03/18/21 Unknown History cholecalciferol (vitamin D3) 25 25 mcg PO DAILY 02/19/21 03/18/21 Unknown History mcg (1,000 unit) tablet furosemide 20 mg tablet 20 mg PO DAILY 02/19/21 03/18/21 Unknown History lisinopril 40 mg tablet 40 mg PO DAILY 02/19/21 03/18/21 Unknown History travoprost 0.004 % eye drops 1 drp OPHTHALMIC (EYE) BEDTIME 02/19/21 03/18/21 Unknown History Physical Exam Vital Signs: Vital Signs: Last Vital Signs Temp 98.0 F 03/16/21 08:00 Pulse 63 03/16/21 08:00 Resp 17 03/16/21 08:00 BP 173/78 H 03/16/21 08:00 Pulse Ox 100 03/16/21 08:00 Body Mass Index 27.7 Const: General: no acute distress, ill appearing and other (appears pale) Nutritional Appearance: average body habitus Orientation/consciousness: patient oriented x3 Limitations: no limitations HENMT: Head: Yes normal to inspection Ears: hearing grossly normal bilaterally Eyes: Sclerae: sclerae normal Pupils: Equal, round and reactive pupils present Neck: Neck: Yes normal visual inspection Chest: Chest palpation & inspection: normal inspection of the chest Resp: Effort & Inspection: normal respiratory effort Auscultation: clear to auscultation bilaterally Cardio: Palpation: normal PMI Rate: regular rate Rhythm: other (Irregularly irregular) Heart sounds: S1 normal heart sound present, S2 normal heart sound present and Murmur heart sound present (2/6 HSM left parasternal area) GI: Palpation (GI): Soft to palpation, nontender and No hepatosplenomegaly present Auscultation: normal bowel sounds Rectal Exam - Male: Yes deferred Skin: General skin exam: no rashes or lesions noted Neuro: General: patient oriented x3, gait normal and moves all extremities Cranial nerves: Yes Equal, round and reactive pupils present and Yes Normal hearing present Speech: No Abnormal speech present Psych: Appearance: grossly normal Mental Status: mental status grossly normal Results Labs CBC & Chem 7: 03/17/21 04:40 03/17/21 04:40 Labs: Short CBC 03/15/21 03/16/21 Range/Units 15:12 07:06 WBC 4.5 L 4.8 (4.8-10.8) X10*3/uL Hgb 7.0 L* 7.8 L (14.0-18.0) g/dl Hct 24.7 L 27.2 L (42-52) % Plt Count 203 186 (160-400) X10*3/uL BMP 03/15/21 03/16/21 15:12 07:06 Sodium 138 141 Potassium 4.1 4.5 Chloride 107 112 H Carbon Dioxide 24 25 BUN 18 H 17 H Creatinine 1.44 H 1.12 Calcium 8.3 L 8.3 L Liver Function 03/15/21 Range/Units 15:12 Total Bilirubin 0.8 (0.0-1.0) mg/dL Direct Bilirubin 0.3 (0.0-0.5) mg/dL AST 18 (5-37) U/L ALT 19 (0-40) U/L Alkaline Phosphatase 121 H (39-117) U/L Albumin 4.0 (3.5-5.0) g/dL Urine 03/15/21 Range/Units 16:16 Urine Color STRAW Urine Appearance CLEAR Urine pH 5.5 (5.0-8.0) Ur Specific [place] <= 1.005 (1.005-1.025) Urine Protein NEG (NEG-TRACE) MG/DL Urine Glucose (UA) NEG (NEG) MG/DL Assessment and Plan (1) Iron deficiency anemia: Problem details: Chronic iron deficiency anemia Status: Acute (2) Current use of anticoagulant therapy: Problem details: warfarin-Otto Margarette- need to confirm ok to stop 5 days prior to colonoscopy-unable to send note through expanse Patient aware this must be confirmed, there were no major barriers to understanding identified Status: Acute 75 year old Yoruba-speaking male with hypertension, kidney disease, hyperlipidemia, right carotid artery occlusion, cystitis, BPH, history of colon polyps admitted to [facility] [facility] with the severe iron deficiency anemia. Patient is on warfarin for atrial fibrillation. He complains of decreased appetite, intermittent heartburn and constipation and denies overt GI bleed. Stool occult blood was negative in the ED. Anemia can be due to upper versus lower GI source. RECOMMENDATIONS: 1. Follow H&H daily. 2. Vitamin K 5 mg IV to correct coagulopathy and repeat INR at 4 pm today and tomorrow am. 3. Clear liquid diet today and Dulcolax with Colyte prep this afternoon and NPO after midnight tonight - prep orders placed 4. Patient will be scheduled for an upper endoscopy and colonoscopy on 03/17/21. Both procedures and potential complications including bleeding, perforation, drug reaction, aspiration and missed diagnosis were reviewed with the patient with the help of a roaster supervisor. Patient would like to proceed. Of note patient reports waking up with abdominal pain during one of his past colonoscopies and is requesting to be completely out for the procedure.
--- NOTE | 2021-03-16 11:10 | HO.PM.IMPN ---
Subjective Subjective Date of Service: 03/16/21 <ANTOINE Aviles - Last Filed: 03/16/21 11:22> 03/16/21 <Christian Lilly MD - Last Filed: 03/16/21 15:49> Interval History: follow up for iron deficiency anemia No active bleeding Patient reports some shortness of breath. Denies chest pain palpitations <ANTOINE Aviles - Last Filed: 03/16/21 11:22> Review of Systems Review of Systems: Yes all other systems are reviewed and are negative <ANTOINE Aviles - Last Filed: 03/16/21 11:22> Constitutional Constitutional: Denies chills and Denies fever(s) <ANTOINE Aviles - Last Filed: 03/16/21 11:22> Cardiovascular Cardiovascular: Denies chest pain and Reports dyspnea <ANTOINE Aviles - Last Filed: 03/16/21 11:22> Respiratory Respiratory: Denies cough and Reports dyspnea <ANTOINE Aviles - Last Filed: 03/16/21 11:22> Gastrointestinal Gastrointestinal: Denies abdominal pain <ANTOINE Aviles - Last Filed: 03/16/21 11:22> Physical Exam Vital Signs: Vital Signs: Last Vital Signs Temp 98.0 F 03/16/21 08:00 Pulse 63 03/16/21 08:00 Resp 17 03/16/21 08:00 BP 173/78 H 03/16/21 08:00 Pulse Ox 100 03/16/21 08:00 Body Mass Index 27.7 <ANTOINE Aviles - Last Filed: 03/16/21 11:22> Const: General: comfortable, no acute distress, alert and awake <ANTOINE Aviles - Last Filed: 03/16/21 11:22> Nutritional Appearance: well nourished <ANTOINE Aviles - Last Filed: 03/16/21 11:22> Orientation/consciousness: patient oriented x3 <ANTOINE Aviles Last Filed: 03/16/21 11:22> HENMT: Head: Yes normocephalic and Yes atraumatic <ANTOINE Aviles - Last Filed: 03/16/21 11:22> Eyes: Sclerae: sclerae normal <ANTOINE Aviles - Last Filed: 03/16/21 11:22> Chest: Chest palpation & inspection: normal inspection of the chest <ANTOINE Aviles - Last Filed: 03/16/21 11:22> Resp: Effort & Inspection: normal respiratory effort and no respiratory distress <ANTOINE Aviles - Last Filed: 03/16/21 11:22> Auscultation: clear to auscultation bilaterally <ANTOINE Aviles - Last Filed: 03/16/21 11:22> Cardio: Jugular venous distension: JVD <ANTOINE Aviles - Last Filed: 03/16/21 11:22> Rate: regular rate <ANTOINE Aviles - Last Filed: 03/16/21 11:22> Rhythm: abnormal rhythm irregularly irregular <ANTOINE Aviles - Last Filed: 03/16/21 11:22> GI: Palpation (GI): Soft to palpation and nontender <ANTOINE Aviles - Last Filed: 03/16/21 11:22> Neuro: General: patient oriented x3 <ANTOINE Aviles - Last Filed: 03/16/21 11:22> Cranial nerves: Yes CN's II-XII intact bilaterally and Yes Bilaterally intact EOM present <ANTOINE Aviles - Last Filed: 03/16/21 11:22> Extrem: Other: no leg edema <ANTOINE Aviles - Last Filed: 03/16/21 11:22> Psych: Other: flat affect <ANTOINE Aviles - Last Filed: 03/16/21 11:22> Objective Data Current Medications Generic Name Dose Route Start Last Admin Trade Name Freq PRN Reason Stop Dose Admin Acetaminophen 650 mg 03/15/21 18:56 Acetaminophen 325 Mg Tablet PO Q6H PRN Pain, Mild (Pain Scale 1-3) Bisacodyl 10 mg 03/16/21 13:00 Bisacodyl 5 [address] Tablet.Dr SMITH 03/16/21 13:01 ONCE@1300 ONE Docusate Sodium 100 mg 03/15/21 18:56 Docusate Sodium 100 Mg Capsule PO DAILY PRN Constipation Furosemide 20 mg 03/17/21 09:00 Furosemide 20 Mg Tablet PO DAILY [facility] Protocol Latanoprost 1 drop 03/16/21 21:00 Latanoprost 0.005 % Ophth Yenni 2.5 Ml Drops EYE-BOTH BEDTIME [facility] Lisinopril 40 mg 03/16/21 11:10 Lisinopril 40 Mg Tablet PO DAILY [facility] Protocol Ondansetron HCl 4 mg 03/15/21 18:56 Ondansetron Hcl 4 Mg/2 Ml Vial IVPUSH Q8H PRN Nausea and Vomiting Pharmacy Consult 1 each 03/15/21 16:09 Consult Rx Perform Med Rec MISCELLANE ONCE PRN Consult order Polyethylene Glycol/Electrolytes 4,000 ml 03/16/21 14:00 Peg 3350/Na Sulf,Bicarb,Cl/Kcl 4,000 Ml Soln.Recon PO 03/16/21 14:01 ONCE@1400 ONE Sodium Chloride 3 ml 03/16/21 00:00 03/16/21 07:30 0.9 % Sodium Chloride Flush 3 Ml Syringe IVFLUSH 3 ml QSHIFT [facility] Administration Vitamin D 25 mcg 03/16/21 09:00 03/16/21 08:27 Cholecalciferol (Vitamin D3) 25 Mcg Tablet PO 25 mcg DAILY VIKTOR Administration <ANTOINE Aviles - Last Filed: 03/16/21 11:22> Labs CBC & Chem 7: : 03/16/21 07:06 03/16/21 07:06 <ANTOINE Aviles - Last Filed: 03/16/21 11:22> Assessment and Plan (1) Iron deficiency anemia: Problem details: Chronic iron deficiency anemia <ANTOINE Aviles - Last Filed: 03/16/21 11:22> Status: Acute <ANTOINE Aviles - Last Filed: 03/16/21 11:22> Assessment and Plan: This is a 75-year-old Gambian-speaking male with history of atrial fibrillation on Coumadin, hypertension sent to the emergency department with abnormal labs found to have anemia. Microcytic anemia Iron studies consistent with iron deficiency. Heme-negative stool. h/o tubular adenoma on colonoscopy from 2014 s/p 1U rbc 5/[address] Becerra - plan for colonoscopy and EGD in am -continue clear liquid diet, NPO at midnight -hold Coumadin, GI rec IV vit K x1 and repeat INR this afternoon -follow CBC Acute on chronic HFpEF ECHO from with EF 55-60%, mod-severe tricuspid regurg Lungs clear, no leg edema but reporting SOB. BNP trending up. JVD on exam. Likely fluid overload from receiving blood transfusion - will give 1 dose IV Lasix now, resume home dose of Lasix starting in a.m. - monitor fluid status closely atrial fibrillation rate controlled. Not on rate control agent -hold Coumadin, resume when safe from GI perspective HTN Blood pressure elevated -will resume lisinopril dvt ppx - mechanical devices code status - full code attending: dr. lilly <ANTOINE Aviles - Last Filed: 03/16/21 11:22>
[2021-03-16 11:14] VITALS: BP 154/62; PULSE 57; RESP 16; TEMP 36.8; O2SAT 100
[2021-03-16] MEDS: Furosemide 20 MG/2 ML VIAL IVPUSH (11:35)
[2021-03-16] MEDS: lisinopriL 40 MG TABLET PO (11:35)
[2021-03-16] MEDS: bisacodyL 5 MG TABLET.DR 10 MG PO (12:54)
[2021-03-16] MEDS: PEG 3350/Na Sulf,Bicarb,Cl/KCL 4,000 ML SOLN.RECON 4000 ML PO (14:14)
[2021-03-16 15:58] LABS: Hematocrit 30.1 % (42-52); Hemoglobin 8.8 g/dl (14.0-18.0)
[2021-03-16 16:00] VITALS: BP 160/63; PULSE 110; RESP 15; TEMP 36.2; O2SAT 100
[2021-03-16 16:09] LABS: Prothrombin Time 23.6 SEC (10.8-13.0)
--- NOTE | 2021-03-16 17:19 | PC.NURSE ---
INR 2.[address] Becerra. Will have repeat lab in the morning
[2021-03-16] MEDS: Latanoprost 0.005 % Ophth Sol 2.5 ML DROPS 1 DROP EYE-BOTH (19:56)
[2021-03-16 20:00] VITALS: BP 155/66; PULSE 53; RESP 14; TEMP 36.3; O2SAT 100
[2021-03-17] VITALS (8 sets, daily range): BP systolic 129–174; BP diastolic 57–88; PULSE 58–77; RESP 16–18; TEMP 36.3–36.8; O2SAT 99–100
[2021-03-17] MEDS: 0.9 % Sodium Chloride Flush 3 ML SYRINGE IVFLUSH ×3 (00:43→16:05)
[2021-03-17 05:13] LABS: Hematocrit 26.7 % (42-52); Hemoglobin 7.8 g/dl (14.0-18.0); Mean Corpuscular HGB Conc 29.2 g/dl (31.0-36.0); Mean Corpuscular Hemoglobin 22.6 pg (27.0-33.0); Mean Corpuscular Volume 77.4 fL (80-98); Mean Platelet Volume 9.4 fL (9.4-12.4); Platelet Count 191 X10*3/uL (160-400); Red Blood Count 3.45 X10*6/uL (4.60-5.80); Red Cell Distribution Width 19.4 % (11.0-16.0); White Blood Count 5.1 X10*3/uL (4.8-10.8)
[2021-03-17 05:19] LABS: INTERNATIONAL NORM RATIO 1.6 (0.9-1.1)
[2021-03-17 05:40] LABS: Anion Gap 10 (12-20); Blood Urea Nitrogen 12 mg/dL (9-16); Calcium 8.3 mg/dL (8.4-10.2); Carbon Dioxide 25 mmol/L (22-29); Chloride 110 mmol/L (96-108); Creatinine Clr Calc Pharmacy 64.9; Estimated Glomerular Filt Rate > 60; Glucose Random 73 mg/dL (60-115); Sodium 141 mmol/L (135-145)
[2021-03-17] MEDS: Cholecalciferol (Vitamin D3) 25 MCG TABLET PO (08:42)
[2021-03-17] MEDS: lisinopriL 40 MG TABLET PO (08:42)
[2021-03-17] MEDS: Furosemide 20 MG TABLET PO (08:42)
--- NOTE | 2021-03-17 13:11 | HO.ANESPROP2 ---
[facility] Active Problems Active Problems: All Active Problems (Updated 03/16/21 @ 11:23 by Isadora Becerra MD) Iron deficiency anemia (Acute) Current use of anticoagulant therapy (Acute) Encounter for screening colonoscopy (Acute) Anemia (Acute) Dyslipidemia (Acute) HTN (hypertension) (Acute) Past Medical History Medical History Atrial fibrillation Dyslipidemia HTN (hypertension) Tubular adenoma Functional capacity: independent ambulation Family History Family History Father Throat cancer Brother Prostate cancer Social History Social History Household Members: None Housing: Apartment Do you presently have visiting nurse or other home services: No Alcohol intake: never Smoking Status: Never smoker Use of substances other than those prescribed or required for medical reasons: No Currently Displaying Signs/Symptoms of Drug Intoxication Withdrawal: No Have you been hit, kicked, punched, or otherwise hurt by someone within the past year? If so, by whom?: No Do you feel safe in your current relationship?: Yes Is there a partner from a previous relationship who is making you feel unsafe now?: No Are you made to feel afraid or neglected: No Are you DNR?: No Advance Directives: No Advance Directives Information Provided: Yes Do you have thoughts of harming others: None Do you have a plan to hurt others: No Plan Recently lost weight without trying: No Nutrition Risks: No Nutritional Risk Poor oral hygiene: No Current occupational status: retired Meds Allergies Allergy/AdvReac Type Severity Reaction Status Date / Time No Known Allergies Allergy Verified 03/12/21 13:24 [No Known Allergies*] Active Medications: Current Medications Generic Name Dose Route Start Last Admin Trade Name Freq PRN Reason Stop Dose Admin Acetaminophen 650 mg 03/15/21 18:56 Acetaminophen 325 Mg Tablet PO Q6H PRN Pain, Mild (Pain Scale 1-3) Docusate Sodium 100 mg 03/15/21 18:56 Docusate Sodium 100 Mg Capsule PO DAILY PRN Constipation Furosemide 20 mg 03/17/21 09:00 03/17/21 08:42 Furosemide 20 Mg Tablet PO 20 mg DAILY VIKTOR Administration Protocol Latanoprost 1 drop 03/16/21 21:00 03/16/21 19:56 Latanoprost 0.005 % Ophth Yenni 2.5 Ml Drops EYE-BOTH 1 drop BEDTIME VIKTOR Administration Lisinopril 40 mg 03/16/21 11:10 03/17/21 08:42 Lisinopril 40 Mg Tablet PO 40 mg DAILY VIKTOR Administration Protocol Ondansetron HCl 4 mg 03/15/21 18:56 Ondansetron Hcl 4 Mg/2 Ml Vial IVPUSH Q8H PRN Nausea and Vomiting Pharmacy Consult 1 each 03/15/21 16:09 Consult Rx Perform Med Rec MISCELLANE ONCE PRN Consult order Sodium Chloride 3 ml 03/16/21 00:00 03/17/21 08:43 0.9 % Sodium Chloride Flush 3 Ml Syringe IVFLUSH 3 ml QSHIFT [facility] Administration Vitamin D 25 mcg 03/16/21 09:00 03/17/21 08:42 Cholecalciferol (Vitamin D3) 25 Mcg Tablet PO 25 mcg DAILY VIKTOR Administration Home Medications Medication Instructions Recorded Confirmed Last Taken Type aspirin 81 mg tablet,delayed 81 mg PO DAILY 02/19/21 03/15/21 Unknown History release atorvastatin 80 mg tablet 80 mg PO BEDTIME 02/19/21 03/15/21 Unknown History cholecalciferol (vitamin D3) 25 25 mcg PO DAILY 02/19/21 03/15/21 Unknown History mcg (1,000 unit) tablet furosemide 20 mg tablet 20 mg PO DAILY 02/19/21 03/15/21 Unknown History lisinopril 40 mg tablet 40 mg PO DAILY 02/19/21 03/15/21 Unknown History travoprost 0.004 % eye drops 1 drp OPHTHALMIC (EYE) BEDTIME 02/19/21 03/15/21 Unknown History Exam Exam Date and Time: March 17, 2021 1311 Height,Weight and Vital Signs: Height 5 ft 9 in Weight 85.275 kg Last Vital Signs Temp 98 F 03/17/21 12:57 Pulse 68 03/17/21 12:57 Resp 18 03/17/21 12:57 BP 173/69 H 03/17/21 12:57 Pulse Ox 99 03/17/21 12:57 Pertinent Lab Results Pertinent Lab Results: Laboratory Tests 03/15/21 03/15/21 03/15/21 15:12 15:12 15:12 WBC 4.5 L RBC 3.21 L Hgb 7.0 L* Hct 24.7 L MCV 76.9 L MCH 21.8 L MCHC 28.3 L RDW 19.2 H Plt Count 203 MPV 9.5 Immature Gran % (Auto) 0.2 Neut % (Auto) 52.2 Lymph % (Auto) 26.7 [place] % (Auto) 15.1 H Eos % (Auto) 5.6 H Baso % (Auto) 0.2 Lymph # (Auto) 1.2 [place] # (Auto) 0.7 Eos # (Auto) 0.3 Baso # (Auto) 0.0 Abs Immat Gran (auto) 0.01 Absolute Neuts (auto) 2.4 Absolute Nucleated RBC 0.000 Nucleated RBC % (auto) 0.0 PT 29.4 H INR 2.5 H Sodium 138 Potassium 4.1 Chloride 107 Carbon Dioxide 24 Anion Gap 11 L BUN 18 H Creatinine 1.44 H Estim Creat Clear Calc 48.7 Estimated GFR 48 Random Glucose 99 Calcium 8.3 L Iron 20 L TIBC 444 H % Saturation 5 L Unsat Iron Binding 424 Ferritin 14 L Total Bilirubin Direct Bilirubin AST ALT Alkaline Phosphatase B-Natriuretic Peptide Total Protein Albumin Urine Color Urine Appearance Urine pH Ur Specific [place] Urine Protein Urine Glucose (UA) Urine Ketones Urine Blood Urine Nitrite Ur Leukocyte Esterase Stool Occult Blood COVID-19 (NILAM) COVID-19 Clin Com Blood Type Antibody Screen Crossmatch 03/15/21 03/15/21 03/15/21 15:12 15:55 15:55 WBC RBC Hgb Hct MCV MCH MCHC RDW Plt Count MPV Immature Gran % (Auto) Neut % (Auto) Lymph % (Auto) [place] % (Auto) Eos % (Auto) Baso % (Auto) Lymph # (Auto) [place] # (Auto) Eos # (Auto) Baso # (Auto) Abs Immat Gran (auto) Absolute Neuts (auto) Absolute Nucleated RBC Nucleated RBC % (auto) PT INR Sodium Potassium Chloride Carbon Dioxide Anion Gap BUN Creatinine Estim Creat Clear Calc Estimated GFR Random Glucose Calcium Iron TIBC % Saturation Unsat Iron Binding Ferritin Total Bilirubin 0.8 Direct Bilirubin 0.3 AST 18 ALT 19 Alkaline Phosphatase 121 H B-Natriuretic Peptide Total Protein 7.2 Albumin 4.0 Urine Color Urine Appearance Urine pH Ur Specific [place] Urine Protein Urine Glucose (UA) Urine Ketones Urine Blood Urine Nitrite Ur Leukocyte Esterase Stool Occult Blood NEGATIVE COVID-19 (NILAM) COVID-19 Clin Com Blood Type A Positive Antibody Screen NEGATIVE Crossmatch See Detail 03/15/21 03/15/21 03/16/21 16:16 16:16 07:06 WBC 4.8 RBC 3.48 L Hgb 7.8 L Hct 27.2 L MCV 78.2 L MCH 22.4 L MCHC 28.7 L RDW 19.4 H Plt Count 186 MPV 9.8 Immature Gran % (Auto) Neut % (Auto) Lymph % (Auto) [place] % (Auto) Eos % (Auto) Baso % (Auto) Lymph # (Auto) [place] # (Auto) Eos # (Auto) Baso # (Auto) Abs Immat Gran (auto) Absolute Neuts (auto) Absolute Nucleated RBC 0.000 Nucleated RBC % (auto) 0.0 PT INR Sodium Potassium Chloride Carbon Dioxide Anion Gap BUN Creatinine Estim Creat Clear Calc Estimated GFR Random Glucose Calcium Iron TIBC % Saturation Unsat Iron Binding Ferritin Total Bilirubin Direct Bilirubin AST ALT Alkaline Phosphatase B-Natriuretic Peptide Total Protein Albumin Urine Color STRAW Urine Appearance CLEAR Urine pH 5.5 Ur Specific [place] <= 1.005 Urine Protein NEG Urine Glucose (UA) NEG Urine Ketones NEG Urine Blood NEG Urine Nitrite NEG Ur Leukocyte Esterase NEG Stool Occult Blood COVID-19 (NILAM) Negative COVID-19 Clin Com See Note Blood Type Antibody Screen Crossmatch 03/16/21 03/16/21 03/16/21 07:06 07:06 07:06 WBC RBC Hgb Hct MCV MCH MCHC RDW Plt Count MPV Immature Gran % (Auto) Neut % (Auto) Lymph % (Auto) [place] % (Auto) Eos % (Auto) Baso % (Auto) Lymph # (Auto) [place] # (Auto) Eos # (Auto) Baso # (Auto) Abs Immat Gran (auto) Absolute Neuts (auto) Absolute Nucleated RBC Nucleated RBC % (auto) PT 26.7 H INR 2.2 H Sodium 141 Potassium 4.5 Chloride 112 H Carbon Dioxide 25 Anion Gap 9 L BUN 17 H Creatinine 1.12 Estim Creat Clear Calc 62.6 Estimated GFR > 60 Random Glucose 78 Calcium 8.3 L Iron TIBC % Saturation Unsat Iron Binding Ferritin Total Bilirubin Direct Bilirubin AST ALT Alkaline Phosphatase B-Natriuretic Peptide 905 H Total Protein Albumin Urine Color Urine Appearance Urine pH Ur Specific [place] Urine Protein Urine Glucose (UA) Urine Ketones Urine Blood Urine Nitrite Ur Leukocyte Esterase Stool Occult Blood COVID-19 (NILAM) COVID-19 [place] [facility] Blood Type Antibody Screen Crossmatch 03/16/21 03/16/21 03/17/21 15:47 15:47 04:40 WBC RBC Hgb 8.8 L Hct 30.1 L MCV MCH MCHC RDW Plt Count MPV Immature Gran % (Auto) Neut % (Auto) Lymph % (Auto) [place] % (Auto) Eos % (Auto) Baso % (Auto) Lymph # (Auto) [place] # (Auto) Eos # (Auto) Baso # (Auto) Abs Immat Gran (auto) Absolute Neuts (auto) Absolute Nucleated RBC Nucleated RBC % (auto) PT 23.6 H 19.0 H INR 2.0 H 1.6 H Sodium Potassium Chloride Carbon Dioxide Anion Gap BUN Creatinine Estim Creat Clear Calc Estimated GFR Random Glucose Calcium Iron TIBC % Saturation Unsat Iron Binding Ferritin Total Bilirubin Direct Bilirubin AST ALT Alkaline Phosphatase B-Natriuretic Peptide Total Protein Albumin Urine Color Urine Appearance Urine pH Ur Specific [place] Urine Protein Urine Glucose (UA) Urine Ketones Urine Blood Urine Nitrite Ur Leukocyte Esterase Stool Occult Blood COVID-19 (NILAM) COVID-19 [facility] Blood Type Antibody Screen Crossmatch 03/17/21 03/17/21 04:40 04:40 WBC 5.1 RBC 3.45 L Hgb 7.8 L Hct 26.7 L MCV 77.4 L MCH 22.6 L MCHC 29.2 L RDW 19.4 H Plt Count 191 MPV 9.4 Immature Gran % (Auto) Neut % (Auto) Lymph % (Auto) [place] % (Auto) Eos % (Auto) Baso % (Auto) Lymph # (Auto) [place] # (Auto) Eos # (Auto) Baso # (Auto) Abs Immat Gran (auto) Absolute Neuts (auto) Absolute Nucleated RBC 0.000 Nucleated RBC % (auto) 0.0 PT INR Sodium 141 Potassium 4.0 Chloride 110 H Carbon Dioxide 25 Anion Gap 10 L BUN 12 Creatinine 1.08 Estim Creat Clear Calc 64.9 Estimated GFR > 60 Random Glucose 73 Calcium 8.3 L Iron TIBC % Saturation Unsat Iron Binding Ferritin Total Bilirubin Direct Bilirubin AST ALT Alkaline Phosphatase B-Natriuretic Peptide Total Protein Albumin Urine Color Urine Appearance Urine pH Ur Specific [place] Urine Protein Urine Glucose (UA) Urine Ketones Urine Blood Urine Nitrite Ur Leukocyte Esterase Stool Occult Blood COVID-19 (NILAM) COVID-19 Clin Com Blood Type Antibody Screen Crossmatch Airway Mallampati Class: II TM Dist: >3cm Neck ROM: Full Assessment and Plan Assessment Anesthesia Assessment: Anesthesia Plan Discussed and Chart Reviewed Final Anesthetic Review NPO: Yes ASA Class: III Final Preanesthetic Review: No Changes in Pt Med Stat, Meds/Allgs Chart Reviewed, Consent Obtained/Reviewed and Anes Risks/Benef Reviewed Patient Risk: Intermediate Procedure Risk: Low Assessment/Block/Sedation in SS: Assess/Block/Sedation-SS Anesthetic Plan Anesthetic Plan: MAC: Disposition: Standard PACU
[2021-03-17] MEDS: Lactated Ringers 1,000 ML 20 ML IVCONT (13:17)
--- NOTE | 2021-03-17 13:21 | PC.NURSE ---
labs reviewed by anesthesia
--- NOTE | 2021-03-17 13:57 | P.OP_ITS ---
Operative Note Operative Note Date of Service: 03/17/21 Narrative: Pre-op diagnosis: Iron deficiency anemia Post-op diagnosis: other (Gastritis, diverticulosis) Procedure: FLEXIBLE TRANSORAL UPPER GASTROINTESTINAL ENDOSCOPY WITH BIOPSIES AND COLONOSCOPY TILL CECUM UPPER ENDOSCOPY Consent: Indications for the procedure and potential complications of bleeding, perforation, reaction to medications and missed diagnosis were discussed with the patient and informed consent was obtained. Instrument: Olympus GIF H 190 mid size upper endoscope Monitoring: Vital signs and clinical assessment, continuous EKG monitoring, Pulse oximetry, Carbon Dioxide monitoring and blood pressure monitoring were done throughout the procedure. Procedure: The patient was placed in the left lateral decubitis position and pre-procedure medications were administered and a bite block was placed. The endoscope was inserted into the mouth and advanced under direct vision to the third part of duodenum. A careful inspection was made as the upper endoscope was withdrawn including a retroflexed examination of the proximal stomach; Findings and interventions are described below. Findings: Larynx: Normal Esophagus: GE junction at 40 cms. No esophagitis or Barragan's. Stomach: Mild gastric erythema. Biopsies were obtained. Grade 2 flap valve on retroflexed examination of the cardia. Duodenum: Normal bulb and descending duodenum. Biopsies were obtained from 3rd part of duodenum to check for celiac disease. Intervention: Biopsies as noted above COLONOSCOPY PROCEDURE NOTE Consent: Indications for the procedure and potential complications of bleeding, perforation, reaction to medications and missed diagnosis were discussed with the patient and informed consent was obtained. Instrument: Olympus PCF H 190 L variable stiffness pediatric colonoscope Monitoring: Vital signs and clinical assessment, intermittent blood pressure monitoring, continuous EKG monitoring, Pulse oximetry and Carbon Dioxide monitoring were done throughout the procedure. Colon withdrawl time was 20 minutes. Procedure: The patient was placed in the left lateral decubitis position and pre-procedure medications were administered. After a digital rectal examination of the ano-rectum, the video colonoscope was inserted into the rectum and advanced through the colon to the cecum. The colonoscope was slowly withdrawn in a retrograde panoramic fashion and the colon mucosa was carefully examined including a retroflexed view of the rectum. Findings and interventions are described below. Procedure Difficulty: : Without difficulty Findings: Terminal Ileum: Not evaluated Cecum: Normal Ascending Colon: Normal Transverse Colon: Normal Descending Colon: Moderate diverticulosis Sigmoid Colon: Moderate diverticulosis Rectum: Normal Ano-rectum: Moderate internal hemorrhoids Colon preparation: Good after copious irrigation Impression and Post Procedure Diagnosis: Endoscopy Findings: STOMACH: Gastritis DUODENUM: Normal - biopsied to check for celiac sprue Colonoscopy Findings: No polyps were detected. Moderate diverticulosis seen in the []colon No etiology found for iron deficiency anemia - possibly small bowel source of anemia Plan: Await pathology results. If biopsies are normal, I will arrange an outpatient Capsule Endoscopy Patient to schedule a FU appointment in the GI Clinic with Isadora Becerra M.D.. Repeat Colonoscopy in 10 years. Above findings were reviewed with the patient. OK to discharge patient home since H & H has been stable and pt has not had any overt bleeding. Surgeon: Isadora Becerra MD Anesthesia: MAC (Renée De La Paz CRNA) Was an Java Integration Developer used for this Procedure?: No Estimated blood loss (mL): 0 Pathology: other (A: SMALL BOWEL BX R/O CELIAC B: GASTRIC ANTRUM R/O H PYLORI) Condition: stable Disposition: PACU
--- NOTE | 2021-03-17 13:57 | MHC.SHP ---
Pre-Procedural Eval Section A The patient is an INPATIENT: Yes Changes since office visit: Yes New Medical Problems, Yes Changes in Medication and Yes Patient answered all questions; No Cold of Flu in the past 2 weeks The History & Physical has been completed within 30 days and I have reviewed it.: Yes Section B Chief Complaint: Anemia Allergies: Allergies Allergy/AdvReac Type Severity Reaction Status Date / Time No Known Allergies Allergy Verified 03/12/21 13:24 [No Known Allergies*] Plan I have reviewed the history and physical and performed a pertinent physical examination on my patient. No changes have occurred unless specified.
--- NOTE | 2021-03-17 15:30 | P.PNIM_ITS ---
Subjective Subjective Date of Service: 03/17/21 Physical Exam Vital Signs: Vital Signs: Last Vital Signs Temp 98.0 F 03/17/21 14:58 Pulse 65 03/17/21 15:10 Resp 18 03/17/21 15:10 BP 143/66 H 03/17/21 15:10 Pulse Ox 99 03/17/21 15:10 Body Mass Index 27.7 Appearing in no acute distress, OOB to chair lung sounds are clear to auscultation heart regular rate rhythm, clear S1, S2 positive bowel sounds, abdomen is soft, nontender neuro patient is alert x3, no focal deficits Objective Data Current Medications Generic Name Dose Route Start Last Admin Trade Name Freq PRN Reason Stop Dose Admin Acetaminophen 650 mg 03/15/21 18:56 Acetaminophen 325 Mg Tablet PO Q6H PRN Pain, Mild (Pain Scale 1-3) Docusate Sodium 100 mg 03/15/21 18:56 Docusate Sodium 100 Mg Capsule PO DAILY PRN Constipation Furosemide 20 mg 03/17/21 09:00 03/17/21 08:42 Furosemide 20 Mg Tablet PO 20 mg DAILY VIKTOR Administration Protocol Lactated Ringer's 1,000 mls @ 20 mls/hr 03/17/21 13:15 03/17/21 13:17 Lr IVCONT 20 mls/hr .Q24H VIKTOR Administration Latanoprost 1 drop 03/16/21 21:00 03/16/21 19:56 Latanoprost 0.005 % Ophth Yenni 2.5 Ml Drops EYE-BOTH 1 drop BEDTIME VIKTOR Administration Lisinopril 40 mg 03/16/21 11:10 03/17/21 08:42 Lisinopril 40 Mg Tablet PO 40 mg DAILY VIKTOR Administration Protocol Ondansetron HCl 4 mg 03/15/21 18:56 Ondansetron Hcl 4 Mg/2 Ml Vial IVPUSH Q8H PRN Nausea and Vomiting Pharmacy Consult 1 each 03/15/21 16:09 Consult Rx Perform Med Rec MISCELLANE ONCE PRN Consult order Sodium Chloride 3 ml 03/16/21 00:00 03/17/21 08:43 0.9 % Sodium Chloride Flush 3 Ml Syringe IVFLUSH 3 ml QSHIFT VIKTOR Administration Vitamin D 25 mcg 03/16/21 09:00 03/17/21 08:42 Cholecalciferol (Vitamin D3) 25 Mcg Tablet PO 25 mcg DAILY VIKTOR Administration Labs CBC & Chem 7: 03/17/21 04:40 03/17/21 04:40 Assessment and Plan (1) Iron deficiency anemia: Problem details: Chronic iron deficiency anemia Status: Acute Assessment and Plan: This is a 75-year-old Hungarian-speaking male with history of atrial fibrillation on Coumadin, hypertension sent to the emergency department with abnormal labs found to have anemia. Microcytic anemia Iron studies consistent with iron deficiency. Heme-negative stool. h/o tubular adenoma on colonoscopy from 2014 s/p 1U rbc 03/15 -Colonoscopy and EGD results pending -Follow CBC Acute on chronic HFpEF ECHO from 2019 with EF 55-60%, mod-severe tricuspid regurg Lungs clear, no leg edema but reporting SOB. BNP trending up. JVD on exam. Likely fluid overload from receiving blood transfusion - will give 1 dose IV Lasix now, resume home dose of Lasix starting in a.m. - monitor fluid status closely atrial fibrillation rate controlled. Not on rate control agent -hold Coumadin, resume when safe from GI perspective HTN Blood pressure elevated -will resume lisinopril Attending: Dr. Iverson
[2021-03-17 15:50] LABS: Vitamin B12 587 pg/mL (200-900)
--- NOTE | 2021-03-17 16:25 | P.DS_ITS ---
DS: Providers Provider Date of Service: 03/17/21 <Aida Faust NP - Last Filed: 03/17/21 16:35> 03/17/21 <Cristopher Iverson MD - Last Filed: 03/17/21 16:58> Date of admission: 03/15/21 18:01 <Aida Faust NP - Last Filed: 03/17/21 16:35> Date of discharge: 03/17/21 <Aida Faust NP - Last Filed: 03/17/21 16:35> Primary care physician: Pedro Webber MD <Aida Faust NP - Last Filed: 03/17/21 16:35> Admitting clinician: Imani Hawkins <Aida Faust NP - Last Filed: 03/17/21 16:35> Attending physician on admission: Christian Lilly <Aida Faust NP - Last Filed: 03/17/21 16:35> Consults: 03/15/21 18:01 Consult to Gastroenterology Routine Consulting Provider: Isadora Becerra Reason for consultation: iron def anemia Has provider been notified: No <Aida Faust NP - Last Filed: 03/17/21 16:35> Attending physician on discharge: Cristopher Iverson <Aida Faust NP - Last Filed: 03/17/21 16:35> Discharging clinician: Aida Faust <Aida Faust NP - Last Filed: 03/17/21 16:35> DS: Diagnosis Discharge Diagnosis (1) Iron deficiency anemia: Status: Acute <Aida Faust NP - Last Filed: 03/17/21 16:35> Problem details: Chronic iron deficiency anemia <Aida Faust NP - Last Filed: 03/17/21 16:35> DS: Medications Discharge Medications Home Medications: Home Medications Medication Instructions Recorded Confirmed aspirin 81 mg tablet,delayed 81 mg PO DAILY 02/19/21 03/15/21 release atorvastatin 80 mg tablet 80 mg PO BEDTIME 02/19/21 03/15/21 cholecalciferol (vitamin D3) 25 25 mcg PO DAILY 02/19/21 03/15/21 mcg (1,000 unit) tablet furosemide 20 mg tablet 20 mg PO DAILY 02/19/21 03/15/21 lisinopril 40 mg tablet 40 mg PO DAILY 02/19/21 03/15/21 travoprost 0.004 % eye drops 1 drp OPHTHALMIC (EYE) BEDTIME 02/19/21 03/15/21 Previous Rx's Medication Instructions Recorded warfarin 5 mg tablet 5 mg PO DAILY #90 tab 09/04/20 omeprazole magnesium [Prilosec OTC] 20 mg PO DAILY #30 tab 03/17/21 <Aida Faust NP - Last Filed: 03/17/21 16:35> DS: Summary Hospital Course Hospital Course: HP as per admitting provider This is a 75-year-old Amharic-speaking male who was sent to the emergency department due to abnormal labs. Patient states that he had routine labs drawn and was called by his PCP to come to the emergency department for evaluation. Lab work revealed anemia with H/H of 7.0/24.7. Stool occult blood was negative. Patient denies any dark or bloody stools. He is anticoagulated with Coumadin for atrial fibrillation. He states that he was feeling weak last week but at the moment he feels okay. He denies any dizziness shortness of breath or chest pain. 1 unit of blood was ordered in the emergency department and transfusion has been initiated. It appears he was seen recently in the outpatient setting for colonoscopy screening, it appears that this has not been scheduled at this time . Anemia. Initially presenting with iron deficiency anemia, he received 1 unit of packed red blood cells.Status post EGD and colonoscopy today. No source anemia found, no active bleeding, no polyps. EGD did find gastritis. Plan for patient will be follow up with Gastroenterology for possible capsule endoscopy. No further overt bleeding, stool occult was negative. H&H is stable at this time and patient is safe for discharge. He will be started on Prilosec for gastritis. Acute on chronic congestive heart failure. Initially treated with IV Lasix and then resumed oral Lasix. No signs of overt failure noted. Atrial fibrillation. Rate controlled, not on any rate control medication. Warfarin was held due to anemia, will restart today. Attending Attestation: Patient seen and examined independently and I was present during longo portion of E/M service. Agree with Alvaro Faust NP's history, physical, assessment, and plan. <Aida Faust NP - Last Filed: 03/17/21 16:35> Time Spent with Patient Time attestation: Total time spent providing and/or coordinating discharge services: <Aida Faust NP - Last Filed: 03/17/21 16:35> Discharge coordination time: Greater than 30 minutes <Aida Faust NP - Last Filed: 03/17/21 16:35> Physical Exam Vital Signs: Vital Signs: Last Vital Signs Temp 97.7 F 03/17/21 15:54 Pulse 58 03/17/21 15:54 Resp 16 03/17/21 15:54 BP 163/62 H 03/17/21 15:54 Pulse Ox 100 03/17/21 15:54 Body Mass Index 27.7 <Aida Faust NP - Last Filed: 03/17/21 16:35> Appearing in no acute distress head is normocephalic atraumatic eyes pupils are PERRLA sclera is anicteric mouth throat mucous membranes are intact and moist neck is supple no lymphadenopathy, no JVD noted lung sounds are clear to auscultation heart regular rate rhythm, clear S1, S2 positive bowel sounds, abdomen is soft, nontender neuro patient is alert x3, no focal deficits <Aida Faust NP - Last Filed: 03/17/21 16:35> DS: Data Data Completed and Pending Pending studies at discharge: Pending at discharge 03/17/21 14:29 Surgical [PTH] Routine <Aida Faust NP - Last Filed: 03/17/21 16:35> Labs on day of discharge: Laboratory Results - last 24 hr 03/16/21 03/17/21 03/17/21 15:47 04:40 04:40 WBC 5.1 RBC 3.45 L Hgb 7.8 L Hct 26.7 L MCV 77.4 L MCH 22.6 L MCHC 29.2 L RDW 19.4 H Plt Count 191 MPV 9.4 Absolute Nucleated RBC 0.000 Nucleated RBC % (auto) 0.0 PT 23.6 H 19.0 H INR 2.0 H 1.6 H Sodium Potassium Chloride Carbon Dioxide Anion Gap BUN Creatinine Estim Creat Clear Calc Estimated GFR Random Glucose Calcium Vitamin B12 03/17/21 03/17/21 04:40 04:40 WBC RBC Hgb Hct MCV MCH MCHC RDW Plt Count MPV Absolute Nucleated RBC Nucleated RBC % (auto) PT INR Sodium 141 Potassium 4.0 Chloride 110 H Carbon Dioxide 25 Anion Gap 10 L BUN 12 Creatinine 1.08 Estim Creat Clear Calc 64.9 Estimated GFR > 60 Random Glucose 73 Calcium 8.3 L Vitamin B12 587 <Aida Faust NP - Last Filed: 03/17/21 16:35> Discharge Plan Discharge Anticipated Discharge Date/Time: 03/17/21 16:17 <Aida Faust NP - Last Filed: 03/17/21 16:35> Patient Disposition: Home, Self-Care <Aida Faust NP - Last Filed: 03/17/21 16:35> Discharge Diagnosis: Anemia Gastritis <Aida Faust NP - Last Filed: 03/17/21 16:35> Anemia Gastritis <Cristopher Iverson MD - Last Filed: 03/17/21 16:58> Referrals: Pedro Webber MD [Primary Care Provider] - 1 Week Isadora Becerra MD [Physician] - 1 Week <Aida Faust NP - Last Filed: 03/17/21 16:35> Discharge Medications: New omeprazole magnesium [Prilosec OTC] 20 mg tablet,delayed release (DR/EC) 20 mg PO DAILY Qty: 30 RF: 0 Continued warfarin 5 mg tablet 5 mg PO DAILY Qty: 90 RF: 0 lisinopril 40 mg tablet 40 mg PO DAILY RF: 0 cholecalciferol (vitamin D3) 25 mcg (1,000 unit) tablet 25 mcg PO DAILY RF: 0 furosemide 20 mg tablet 20 mg PO DAILY RF: 0 travoprost 0.004 % drops 1 drp ophthalmic (eye) BEDTIME RF: 0 aspirin 81 mg tablet,delayed release (DR/EC) 81 mg PO DAILY RF: 0 atorvastatin 80 mg tablet 80 mg PO BEDTIME RF: 0 <Aida Faust NP - Last Filed: 03/17/21 16:35> Discharge Orders: Discharge Order (Routine); Ordered 03/17/21 Ordered By: Aida Faust <Aida Faust NP - Last Filed: 03/17/21 16:35> Diet: advance to usual diet <Aida Faust NP - Last Filed: 03/17/21 16:35> advance to usual diet <Cristopher Iverson MD - Last Filed: 03/17/21 16:58> Activity on Discharge: As tolerated <Aida Faust NP - Last Filed: 03/17/21 16:35> As tolerated <Cristopher Iverson MD - Last Filed: 03/17/21 16:58> Stand Alone Forms: Patient Portal Discharge page <Aida Faust NP - Last Filed: 03/17/21 16:35> Care Plan Goals: Resolution of anemia <Aida Faust NP - Last Filed: 03/17/21 16:35> Health Concerns: Anemia Gastritis <Aida Faust NP - Last Filed: 03/17/21 16:35> Plan of Treatment: Follow-up with gastroenterology Dr. Becerra [phone] Avoid nonsteroidal anti-inflammatory medications Start new medication for gastritis <Aida Faust NP - Last Filed: 03/17/21 16:35> Assessment: See discharge summary <Aida Faust NP - Last Filed: 03/17/21 16:35> Discharge Date/Time: 03/17/21 16:52 <Aida Faust NP - Last Filed: 03/17/21 16:35>
== END 2021-03-17 16:52 | disposition home or self-care (01) | DRG 391 ==
LOC: HO.ED 17:50 → HO.EDOVER 18:16 → HO.S3 19:15
PROVIDERS: Internal Medicine Gastroenterology; Nurse Practitioner Family; Admitting Provider Physician Assistant Medical; Emergency Provider Emergency Medicine; PCP Internal Medicine; Visit Provider Nurse Practitioner Acute Care
PROC: 0DB98ZX Excision of Duodenum, Via Natural or Artificial Opening Endoscopic, Diagnostic (ICD-10-PCS; principal; 2021-03-17 13:10)
DX: K29.70 Gastritis, unspecified, without bleeding (principal); I50.33 Acute on chronic diastolic (congestive) heart failure; D50.9 Iron deficiency anemia, unspecified; E78.5 Hyperlipidemia, unspecified; I10 Essential (primary) hypertension; K57.30 Diverticulosis of large intestine without perforation or abscess without bleeding; I11.0 Hypertensive heart disease with heart failure; I48.91 Unspecified atrial fibrillation; K64.8 Other hemorrhoids; Z20.822 Contact with and (suspected) exposure to COVID-19; Z79.01 Long term (current) use of anticoagulants; Z79.82 Long term (current) use of aspirin; Z79.899 Other long term (current) drug therapy
CPT/HCPCS: 36415; 80048; 80076; 81003; 82272; 82607; 82728; 83540; 83880; 85014; 85018; 85025; 85027; 85610; 86850; 86900; 86901; 86923; 87635; 88305; 88342; 93005; 99285; J1940; J3010; J3430; P9016

== ENCOUNTER → 2021-03-18 13:28 | Outpatient (BNVA) | payer MEDICARE, SELFPAY | PROVIDERS: PCP Internal Medicine; Visit Provider Internal Medicine | DX: I48.0 Paroxysmal atrial fibrillation (principal); Z51.81 Encounter for therapeutic drug level monitoring; Z79.01 Long term (current) use of anticoagulants | CPT/HCPCS: 85610; 99211 ==

== ENCOUNTER → 2021-03-21 14:03 | Outpatient (BNVA) | payer MEDICARE, SELFPAY | PROVIDERS: PCP Internal Medicine; Visit Provider Internal Medicine | DX: I48.0 Paroxysmal atrial fibrillation (principal); Z51.81 Encounter for therapeutic drug level monitoring; Z79.01 Long term (current) use of anticoagulants | CPT/HCPCS: 85610; 99211 ==

== ENCOUNTER → 2021-03-27 13:32 | Outpatient (BNVA) | payer MEDICARE, SELFPAY | PROVIDERS: PCP Internal Medicine; Visit Provider Internal Medicine | DX: I48.0 Paroxysmal atrial fibrillation (principal); Z51.81 Encounter for therapeutic drug level monitoring; Z79.01 Long term (current) use of anticoagulants | CPT/HCPCS: 85610; 99211 ==

== ENCOUNTER → 2021-04-02 13:21 | Outpatient (BNVA) | payer MEDICARE, SELFPAY | PROVIDERS: PCP Internal Medicine; Visit Provider Internal Medicine | DX: I48.0 Paroxysmal atrial fibrillation (principal); Z51.81 Encounter for therapeutic drug level monitoring; Z79.01 Long term (current) use of anticoagulants | CPT/HCPCS: 85610; 99211 ==

== ENCOUNTER → 2021-04-03 10:00 | Outpatient (BNV) | payer MEDICARE, SELFPAY | PROVIDERS: PCP Internal Medicine; Visit Provider Internal Medicine Medical Oncology | DX: D50.9 Iron deficiency anemia, unspecified (principal); D61.818 Other pancytopenia | CPT/HCPCS: 99204; 99212; 99213; 99214 ==

== ENCOUNTER → 2021-04-04 08:18 | Outpatient (BNVA) | payer MEDICARE, SELFPAY | PROVIDERS: PCP Internal Medicine; Visit Provider Internal Medicine Gastroenterology | DX: D64.9 Anemia, unspecified (principal) | CPT/HCPCS: 91110 ==

== ENCOUNTER → 2021-04-15 13:02 | Outpatient (BNVA) | payer MEDICARE, SELFPAY | PROVIDERS: PCP Internal Medicine; Visit Provider Internal Medicine | DX: I48.0 Paroxysmal atrial fibrillation (principal); Z51.81 Encounter for therapeutic drug level monitoring; Z79.01 Long term (current) use of anticoagulants | CPT/HCPCS: 85610; 99211 ==

== ENCOUNTER → 2021-04-29 13:01 | Outpatient (BNVA) | payer MEDICARE, SELFPAY | PROVIDERS: PCP Internal Medicine; Visit Provider Internal Medicine | DX: I48.0 Paroxysmal atrial fibrillation (principal); Z51.81 Encounter for therapeutic drug level monitoring; Z79.01 Long term (current) use of anticoagulants | CPT/HCPCS: 85610; 99211 ==

== ENCOUNTER → 2021-05-27 13:02 | Outpatient (BNVA) | payer MEDICARE, SELFPAY | PROVIDERS: PCP Internal Medicine; Visit Provider Internal Medicine | DX: I48.0 Paroxysmal atrial fibrillation (principal); Z51.81 Encounter for therapeutic drug level monitoring; Z79.01 Long term (current) use of anticoagulants | CPT/HCPCS: 85610; 99211 ==

== ENCOUNTER → 2021-06-17 13:07 | Outpatient (BNVA) | payer MEDICARE, SELFPAY | PROVIDERS: PCP Internal Medicine; Visit Provider Internal Medicine | DX: I48.0 Paroxysmal atrial fibrillation (principal); Z79.01 Long term (current) use of anticoagulants; Z51.81 Encounter for therapeutic drug level monitoring | CPT/HCPCS: 85610; 99211 ==

== ENCOUNTER → 2021-07-15 13:04 | Outpatient (BNVA) | payer MEDICARE, SELFPAY | PROVIDERS: PCP Internal Medicine; Visit Provider Internal Medicine | DX: I48.0 Paroxysmal atrial fibrillation (principal); Z51.81 Encounter for therapeutic drug level monitoring; Z79.01 Long term (current) use of anticoagulants | CPT/HCPCS: 85610; 99211 ==

== ENCOUNTER → 2021-08-12 14:12 | Outpatient (BNVA) | payer MEDICARE, SELFPAY | PROVIDERS: PCP Internal Medicine; Referring Provider Internal Medicine; Visit Provider Internal Medicine Gastroenterology | DX: D50.9 Iron deficiency anemia, unspecified (principal) | CPT/HCPCS: 99212 ==

== ENCOUNTER → 2021-08-13 13:27 | Outpatient (BNVA) | payer MEDICARE, SELFPAY | PROVIDERS: PCP Internal Medicine; Visit Provider Internal Medicine | DX: I48.0 Paroxysmal atrial fibrillation (principal); Z51.81 Encounter for therapeutic drug level monitoring; Z79.01 Long term (current) use of anticoagulants | CPT/HCPCS: 85610; 99211 ==

== ENCOUNTER → 2021-08-15 08:06 | Outpatient (BNVA) | payer MEDICARE, SELFPAY | PROVIDERS: PCP Internal Medicine; Visit Provider Internal Medicine Gastroenterology ==

== ENCOUNTER 2021-08-29 10:44 | Outpatient (REF) | payer MEDICARE, SELFPAY | END 2021-08-29 10:45 | disposition home or self-care (01) | LOC: HO.MDS 10:44 | PROVIDERS: PCP Internal Medicine; Visit Provider Internal Medicine Medical Oncology | DX: D50.9 Iron deficiency anemia, unspecified (principal) | CPT/HCPCS: 96365; J2916 ==

== ENCOUNTER 2021-09-05 12:17 | Outpatient (REF) | payer MEDICARE, SELFPAY | END 2021-09-05 12:18 | disposition home or self-care (01) | LOC: HO.MDS 12:17 | PROVIDERS: PCP Internal Medicine; Visit Provider Internal Medicine Medical Oncology | DX: D50.9 Iron deficiency anemia, unspecified (principal) | CPT/HCPCS: 96365; J2916 ==

== ENCOUNTER → 2021-09-10 13:00 | Outpatient (BNVA) | payer MEDICARE, SELFPAY | PROVIDERS: PCP Internal Medicine; Visit Provider Internal Medicine | DX: I48.0 Paroxysmal atrial fibrillation (principal); Z51.81 Encounter for therapeutic drug level monitoring; Z79.01 Long term (current) use of anticoagulants | CPT/HCPCS: 85610; 99211 ==

== ENCOUNTER 2021-09-12 12:33 | Outpatient (REF) | payer MEDICARE, SELFPAY ==
[2021-09-12 13:32] LABS: MANUAL DIFF FLAG NO
[2021-09-12 13:34] LABS: Basophils Percent Auto 0.2 % (0-2); Eosinophils Absolute Auto 0.2 X10*3/uL (0.0-0.4); Eosinophils Percent Auto 3.9 % (0-4); Hematocrit 29.4 % (42.0-52.0); Hemoglobin 9.1 g/dl (14.0-18.0); Imm Gran Abs Auto 0.01 X10*3/uL (0.00-0.03); Imm Gran Pct Auto 0.2 % (0.0-0.4); Lymphocytes Absolute Auto 1.1 X10*3/uL (1.2-4.9); Lymphocytes Percent Auto 20.6 % (20-40); Mean Corpuscular Hemoglobin 28.3 pg (27.0-33.0); Mean Corpuscular Volume 91.3 fL (80.0-98.0); Mean Platelet Volume 9.7 fL (9.4-12.4); Monocytes Absolute Auto 0.7 X10*3/uL (0.1-1.2); Monocytes Percent Auto 13.5 % (2-11); Neutrophils Absolute Auto 3.3 x10*3/uL (2.0-8.3); Neutrophils Percent Auto 61.6 % (45-73); Platelet Count 140 X10*3/uL (160-400); Red Blood Count 3.22 X10*6/uL (4.60-5.80); White Blood Count 5.4 X10*3/uL (4.8-10.8)
[2021-09-12 14:08] LABS: Ferritin 136 ng/mL (20-250)
== END 2021-09-12 12:34 | disposition home or self-care (01) ==
LOC: HO.MDS 12:33
PROVIDERS: PCP Internal Medicine; Visit Provider Internal Medicine Medical Oncology
DX: D50.9 Iron deficiency anemia, unspecified (principal); D12.6 Benign neoplasm of colon, unspecified
CPT/HCPCS: 36415; 82728; 85025; 96365

== ENCOUNTER → 2021-09-18 13:54 | Outpatient (BNVA) | payer MEDICARE, SELFPAY | PROVIDERS: PCP Internal Medicine; Visit Provider Internal Medicine | DX: I48.0 Paroxysmal atrial fibrillation (principal); Z51.81 Encounter for therapeutic drug level monitoring; Z79.01 Long term (current) use of anticoagulants | CPT/HCPCS: 85610; 99211 ==

== ENCOUNTER 2021-09-19 12:20 | Outpatient (REF) | payer MEDICARE, SELFPAY | END 2021-09-19 12:21 | disposition home or self-care (01) | LOC: HO.MDS 12:20 | PROVIDERS: PCP Internal Medicine; Visit Provider Internal Medicine Medical Oncology | DX: D50.9 Iron deficiency anemia, unspecified (principal); D12.6 Benign neoplasm of colon, unspecified | CPT/HCPCS: 96365; J2916 ==

== ENCOUNTER → 2021-09-25 13:58 | Outpatient (BNVA) | payer MEDICARE, SELFPAY | PROVIDERS: PCP Internal Medicine; Visit Provider Internal Medicine | DX: I48.0 Paroxysmal atrial fibrillation (principal); Z51.81 Encounter for therapeutic drug level monitoring; Z79.01 Long term (current) use of anticoagulants | CPT/HCPCS: 85610; 99211 ==

== ENCOUNTER → 2021-10-09 14:07 | Outpatient (BNVA) | payer MEDICARE, SELFPAY | PROVIDERS: PCP Internal Medicine; Visit Provider Internal Medicine | DX: I48.0 Paroxysmal atrial fibrillation (principal); Z51.81 Encounter for therapeutic drug level monitoring; Z79.01 Long term (current) use of anticoagulants | CPT/HCPCS: 85610; 99211 ==

== ENCOUNTER → 2021-10-20 13:48 | Outpatient (BNVA) | payer MEDICARE, SELFPAY | PROVIDERS: PCP Internal Medicine; Visit Provider Internal Medicine | DX: I48.0 Paroxysmal atrial fibrillation (principal); Z51.81 Encounter for therapeutic drug level monitoring; Z79.01 Long term (current) use of anticoagulants | CPT/HCPCS: 85610; 99211 ==

== ENCOUNTER → 2021-11-05 13:10 | Outpatient (BNVA) | payer MEDICARE, SELFPAY | PROVIDERS: PCP Internal Medicine; Visit Provider Internal Medicine | DX: I48.0 Paroxysmal atrial fibrillation (principal); Z51.81 Encounter for therapeutic drug level monitoring; Z79.01 Long term (current) use of anticoagulants | CPT/HCPCS: 85610; 99211 ==

== ENCOUNTER → 2021-11-19 13:14 | Outpatient (BNVA) | payer MEDICARE, SELFPAY | PROVIDERS: PCP Internal Medicine; Visit Provider Internal Medicine | DX: I48.0 Paroxysmal atrial fibrillation (principal); Z51.81 Encounter for therapeutic drug level monitoring; Z79.01 Long term (current) use of anticoagulants | CPT/HCPCS: 85610; 99211 ==

== ENCOUNTER → 2021-11-25 08:17 | Outpatient (BNVA) | payer MEDICARE, SELFPAY | PROVIDERS: PCP Internal Medicine; Referring Provider Internal Medicine; Visit Provider Internal Medicine Gastroenterology | DX: Z13.89 Encounter for screening for other disorder (principal) | CPT/HCPCS: 91110 ==

== ENCOUNTER 2021-11-26 12:51 | Outpatient (REF) | payer MEDICARE, SELFPAY | END 2021-11-26 12:52 | disposition home or self-care (01) | LOC: HO.MDS 12:51 | PROVIDERS: PCP Internal Medicine; Visit Provider Internal Medicine Medical Oncology | DX: D50.9 Iron deficiency anemia, unspecified (principal) | CPT/HCPCS: 96365; J2916 ==

== ENCOUNTER 2021-12-03 12:49 | Outpatient (REF) | payer MEDICARE, SELFPAY | END 2021-12-03 12:50 | disposition home or self-care (01) | LOC: HO.MDS 12:49 | PROVIDERS: PCP Internal Medicine; Visit Provider Internal Medicine Medical Oncology | DX: D50.9 Iron deficiency anemia, unspecified (principal) | CPT/HCPCS: 96365; J2916 ==

== ENCOUNTER → 2021-12-05 13:01 | Outpatient (BNVA) | payer MEDICARE, SELFPAY | PROVIDERS: PCP Internal Medicine; Visit Provider Internal Medicine | DX: I48.0 Paroxysmal atrial fibrillation (principal); Z51.81 Encounter for therapeutic drug level monitoring; Z79.01 Long term (current) use of anticoagulants | CPT/HCPCS: 85610; 99211 ==

== ENCOUNTER 2021-12-11 12:55 | Outpatient (REF) | payer MEDICARE, SELFPAY | END 2021-12-11 12:56 | disposition home or self-care (01) | LOC: HO.MDS 12:55 | PROVIDERS: PCP Internal Medicine; Visit Provider Internal Medicine Medical Oncology | DX: D50.9 Iron deficiency anemia, unspecified (principal); D12.6 Benign neoplasm of colon, unspecified; E78.5 Hyperlipidemia, unspecified | CPT/HCPCS: 96365; J2916 ==

== ENCOUNTER → 2021-12-12 13:05 | Outpatient (BNVA) | payer MEDICARE, SELFPAY | PROVIDERS: PCP Internal Medicine; Visit Provider Internal Medicine | DX: I48.0 Paroxysmal atrial fibrillation (principal); Z51.81 Encounter for therapeutic drug level monitoring; Z79.01 Long term (current) use of anticoagulants | CPT/HCPCS: 85610; 99211 ==

== ENCOUNTER 2021-12-18 12:27 | Outpatient (REF) | payer MEDICARE, SELFPAY ==
[2021-12-18 12:49] LABS: MANUAL DIFF FLAG NO
[2021-12-18 12:51] LABS: Basophils Percent Auto 0.2 % (0-2); Eosinophils Absolute Auto 0.3 X10*3/uL (0.0-0.4); Eosinophils Percent Auto 6.8 % (0-4); Hematocrit 27.4 % (42.0-52.0); Hemoglobin 8.3 g/dl (14.0-18.0); Imm Gran Abs Auto 0.01 X10*3/uL (0.00-0.03); Imm Gran Pct Auto 0.2 % (0.0-0.4); Lymphocytes Absolute Auto 1.1 X10*3/uL (1.2-4.9); Lymphocytes Percent Auto 26.4 % (20-40); Mean Corpuscular HGB Conc 30.3 g/dl (31.0-36.0); Mean Corpuscular Volume 92.6 fL (80.0-98.0); Monocytes Absolute Auto 0.5 X10*3/uL (0.1-1.2); Monocytes Percent Auto 12.5 % (2-11); Neutrophils Absolute Auto 2.3 x10*3/uL (2.0-8.3); Neutrophils Percent Auto 53.9 % (45-73); Platelet Count 145 X10*3/uL (160-400); Red Blood Count 2.96 X10*6/uL (4.60-5.80); Red Cell Distribution Width 15.8 % (11.0-16.0); White Blood Count 4.3 X10*3/uL (4.8-10.8)
[2021-12-18 14:59] LABS: Ferritin 96 ng/mL (20-250)
== END 2021-12-18 12:28 | disposition home or self-care (01) ==
LOC: HO.MDS 12:27
PROVIDERS: PCP Internal Medicine; Visit Provider Internal Medicine Medical Oncology
DX: D50.9 Iron deficiency anemia, unspecified (principal); E78.5 Hyperlipidemia, unspecified; D12.6 Benign neoplasm of colon, unspecified
CPT/HCPCS: 36415; 82728; 85025; 96365; J2916

== ENCOUNTER 2021-12-24 10:59 | Outpatient (REF) | payer MEDICARE, SELFPAY | END 2021-12-24 11:00 | disposition home or self-care (01) | LOC: HO.MDS 10:59 | PROVIDERS: PCP Internal Medicine; Visit Provider Internal Medicine Medical Oncology | DX: D50.9 Iron deficiency anemia, unspecified (principal); I48.91 Unspecified atrial fibrillation; E78.5 Hyperlipidemia, unspecified; D12.6 Benign neoplasm of colon, unspecified | CPT/HCPCS: 96365; J2916 ==

== ENCOUNTER → 2021-12-26 13:02 | Outpatient (BNVA) | payer MEDICARE, SELFPAY | PROVIDERS: PCP Internal Medicine; Visit Provider Internal Medicine | DX: I48.0 Paroxysmal atrial fibrillation (principal); Z51.81 Encounter for therapeutic drug level monitoring; Z79.01 Long term (current) use of anticoagulants | CPT/HCPCS: 85610; 99211 ==

== ENCOUNTER 2021-12-31 11:25 | Outpatient (REF) | payer MEDICARE, SELFPAY | END 2021-12-31 11:26 | disposition home or self-care (01) | LOC: HO.MDS 11:25 | PROVIDERS: PCP Internal Medicine; Visit Provider Internal Medicine Medical Oncology | DX: D50.9 Iron deficiency anemia, unspecified (principal); E78.5 Hyperlipidemia, unspecified; D12.6 Benign neoplasm of colon, unspecified | CPT/HCPCS: 96365; J2916 ==

== ENCOUNTER 2022-01-07 10:55 | Outpatient (REF) | payer MEDICARE, SELFPAY | END 2022-01-07 10:56 | disposition home or self-care (01) | LOC: HO.MDS 10:55 | PROVIDERS: PCP Internal Medicine; Visit Provider Internal Medicine Medical Oncology | DX: D50.9 Iron deficiency anemia, unspecified (principal) | CPT/HCPCS: 96365; J2916 ==

== ENCOUNTER → 2022-01-09 13:25 | Outpatient (BNVA) | payer MEDICARE, SELFPAY | PROVIDERS: PCP Internal Medicine; Visit Provider Internal Medicine | DX: I48.0 Paroxysmal atrial fibrillation (principal); Z51.81 Encounter for therapeutic drug level monitoring; Z79.01 Long term (current) use of anticoagulants | CPT/HCPCS: 85610; 99211 ==

== ENCOUNTER 2022-01-14 11:02 | Outpatient (REF) | payer MEDICARE, SELFPAY | END 2022-01-14 11:03 | disposition home or self-care (01) | LOC: HO.MDS 11:02 | PROVIDERS: PCP Internal Medicine; Visit Provider Internal Medicine Medical Oncology | DX: D50.9 Iron deficiency anemia, unspecified (principal) | CPT/HCPCS: 96365; J2916 ==

== ENCOUNTER → 2022-01-23 13:04 | Outpatient (BNVA) | payer MEDICARE, SELFPAY | PROVIDERS: PCP Internal Medicine; Visit Provider Internal Medicine | DX: I48.0 Paroxysmal atrial fibrillation (principal); Z79.01 Long term (current) use of anticoagulants; Z51.81 Encounter for therapeutic drug level monitoring | CPT/HCPCS: 85610; 99211 ==

== ENCOUNTER → 2022-02-06 13:15 | Outpatient (BNVA) | payer OTHER, SELFPAY | PROVIDERS: PCP Internal Medicine; Visit Provider Internal Medicine | DX: I48.0 Paroxysmal atrial fibrillation (principal); Z51.81 Encounter for therapeutic drug level monitoring; Z79.01 Long term (current) use of anticoagulants | CPT/HCPCS: 85610; 99211 ==

== ENCOUNTER 2022-02-25 11:57 | Outpatient (REF) | payer MEDICARE, SELFPAY | END 2022-02-25 11:58 | disposition home or self-care (01) | LOC: HO.MDS 11:57 | PROVIDERS: PCP Internal Medicine; Visit Provider Internal Medicine Medical Oncology | DX: D50.9 Iron deficiency anemia, unspecified (principal) | CPT/HCPCS: 96365; J2916 ==

== ENCOUNTER → 2022-02-27 13:03 | Outpatient (BNVA) | payer MEDICARE, SELFPAY | PROVIDERS: PCP Internal Medicine; Visit Provider Internal Medicine | DX: I48.0 Paroxysmal atrial fibrillation (principal); Z79.01 Long term (current) use of anticoagulants; Z51.81 Encounter for therapeutic drug level monitoring | CPT/HCPCS: 85610; 99211 ==

== ENCOUNTER 2022-03-04 12:20 | Outpatient (REF) | payer OTHER, SELFPAY | END 2022-03-04 12:21 | disposition home or self-care (01) | LOC: HO.MDS 12:20 | PROVIDERS: PCP Internal Medicine; Visit Provider Internal Medicine Medical Oncology | DX: D50.9 Iron deficiency anemia, unspecified (principal) | CPT/HCPCS: 96365; J2916 ==

== ENCOUNTER 2022-03-11 12:18 | Outpatient (REF) | payer OTHER, SELFPAY | END 2022-03-11 12:19 | disposition home or self-care (01) | LOC: HO.MDS 12:18 | PROVIDERS: PCP Internal Medicine; Visit Provider Internal Medicine Medical Oncology | DX: D50.9 Iron deficiency anemia, unspecified (principal) | CPT/HCPCS: 96365; J2916 ==

== ENCOUNTER 2022-03-18 12:26 | Outpatient (REF) | payer OTHER, SELFPAY ==
[2022-03-18 13:45] LABS: MANUAL DIFF FLAG NO
[2022-03-18 13:47] LABS: Basophils Percent Auto 0.6 % (0-2); Eosinophils Absolute Auto 0.2 X10*3/uL (0.0-0.4); Hematocrit 29.5 % (42.0-52.0); Hemoglobin 9.3 g/dl (14.0-18.0); Imm Gran Abs Auto 0.01 X10*3/uL (0.00-0.03); Imm Gran Pct Auto 0.2 % (0.0-0.4); Lymphocytes Percent Auto 21.4 % (20-40); Mean Corpuscular HGB Conc 31.5 g/dl (31.0-36.0); Mean Corpuscular Hemoglobin 29.5 pg (27.0-33.0); Mean Corpuscular Volume 93.7 fL (80.0-98.0); Mean Platelet Volume 9.2 fL (9.4-12.4); Monocytes Absolute Auto 0.6 X10*3/uL (0.1-1.2); Monocytes Percent Auto 12.3 % (2-11); Neutrophils Absolute Auto 2.9 x10*3/uL (2.0-8.3); Neutrophils Percent Auto 61.5 % (45-73); Platelet Count 149 X10*3/uL (160-400); Red Blood Count 3.15 X10*6/uL (4.60-5.80); Red Cell Distribution Width 15.9 % (11.0-16.0); White Blood Count 4.7 X10*3/uL (4.8-10.8)
== END 2022-03-18 12:27 | disposition home or self-care (01) ==
LOC: HO.MDS 12:26
PROVIDERS: PCP Internal Medicine; Visit Provider Internal Medicine Medical Oncology
DX: D50.9 Iron deficiency anemia, unspecified (principal)
CPT/HCPCS: 36415; 85025; 96365; J2916

== ENCOUNTER → 2022-03-27 13:10 | Outpatient (BNVA) | payer OTHER, SELFPAY | PROVIDERS: PCP Internal Medicine; Visit Provider Internal Medicine | DX: I48.0 Paroxysmal atrial fibrillation (principal); Z79.01 Long term (current) use of anticoagulants; Z51.81 Encounter for therapeutic drug level monitoring | CPT/HCPCS: 85610; 99211 ==

== ENCOUNTER 2022-04-16 12:09 | Outpatient (REF) | payer OTHER, SELFPAY ==
[2022-04-16 14:13] LABS: Prostate Specific Antigen 4.44 ng/mL (<0.05-4.0)
== END 2022-04-16 12:10 | disposition home or self-care (01) ==
LOC: HO.LAB 12:09
PROVIDERS: PCP Internal Medicine; Visit Provider Urology
DX: Z12.5 Encounter for screening for malignant neoplasm of prostate (principal); R97.20 Elevated prostate specific antigen [PSA]
CPT/HCPCS: 36415; 84153; 99202

== ENCOUNTER 2022-04-23 11:38 | Outpatient (REF) | payer OTHER, SELFPAY ==
[2022-04-23 12:11] LABS: COVID-19 Test Negative (Negative); IDNOW Serial# 08D9AD1C
== END 2022-04-23 11:39 | disposition home or self-care (01) ==
LOC: HO.LAB 11:38
PROVIDERS: Visit Provider Internal Medicine
DX: Z20.822 Contact with and (suspected) exposure to COVID-19 (principal)
CPT/HCPCS: 87635; C9803

== ENCOUNTER → 2022-04-24 13:00 | Outpatient (BNVA) | payer OTHER, SELFPAY | PROVIDERS: PCP Internal Medicine; Visit Provider Internal Medicine | DX: I48.0 Paroxysmal atrial fibrillation (principal); Z79.01 Long term (current) use of anticoagulants; Z51.81 Encounter for therapeutic drug level monitoring | CPT/HCPCS: 85610; 99211 ==

== ENCOUNTER 2022-04-29 14:08 | Outpatient (REF) | payer OTHER, SELFPAY ==
--- NOTE | ~2022-04-29 | MR_ITS ---
EXAMINATION: MR LUMBAR SPINE WITHOUT CONTRAST CLINICAL INFORMATION: Back pain. Leg numbness. COMPARISON: MRI dated 11/17/2017. TECHNIQUE: MRI of the lumbar spine was obtained using routine sequences without contrast. FINDINGS: VERTEBRAL BODIES AND PARASPINAL STRUCTURES: There is a mild rightward curvature of the mid lumbar spine, as seen on prior imaging. Mild endplate edema noted posterolaterally on the left side at the L2-L3 level. The marrow signal is fairly homogeneous. There are no compression fractures. Multilevel anterior endplate spurring most notable from the L2 through the L4 levels. The paraspinal soft tissues are unremarkable. There are mild degenerative changes of the SI joints. CONUS MEDULLARIS AND CAUDA EQUINA: Normal, terminating at the level of L2. No lower cord signal abnormality is seen. The cauda equina nerve roots appear normal. SPINAL LEVELS: L1-L2: Very mild disc bulge and mild facet arthropathy without central canal stenosis. Mild left foraminal narrowing. L2-L3: Diffuse disc bulge and hypertrophic facet arthropathy with a left subarticular zone disc protrusion which is new compared to prior imaging and results in mass effect upon the left L3 nerve root. Mild central canal stenosis. Mild right and jkwpsmtt-uf-[id number] left foraminal narrowing due to bulging disc and osseous spurring. L3-L4: Diffuse disc bulge and hypertrophic facet arthropathy result in [id number]-[id number] central canal stenosis and ventral thecal sac distortion, similar to prior imaging. Moderate foraminal narrowing with bulging disc abutting the extraforaminal left L3 nerve root. L4-L5: Mild retrosubluxation and disc bulge with facet degeneration, as on prior imaging. Previous right subarticular zone disc protrusion has resorbed. Severe right foraminal narrowing and compression of the exiting right L4 nerve root due to a broad-based right lateral disc bulge/protrusion and osseous spurring. Stable moderate left foraminal narrowing. Bulging disc mildly impresses upon the right L5 nerve root. L5-S1: Mild disc bulge and spff-tp-[id number] facet arthropathy without central canal stenosis or significant foraminal encroachment. MR/MR lumbar spine wo con IMPRESSION: New focal left subarticular zone disc protrusion at the L2-L3 level superimposed upon a diffuse disc bulge resulting in mass effect upon the left L3 nerve root. Mild central canal stenosis. Zutnwmrd-br-tiecxj left foraminal narrowing. Stable wksk-cp-hjftcfna central canal stenosis and moderate foraminal encroachment at the L3-L4 level with bulging disc impressing upon the extraforaminal left L3 nerve root. Previous right subarticular zone disc protrusion at the L4-L5 level has resorbed, though facet spurring and bulging disc continue to impress upon the right L4 nerve root. Significant right foraminal encroachment and distortion of the right L4 nerve root are fairly similar compared to prior imaging.
== END 2022-04-29 14:09 | disposition home or self-care (01) ==
LOC: HO.MRI 14:08
PROVIDERS: Visit Provider Emergency Medicine
DX: M51.26 Other intervertebral disc displacement, lumbar region (principal)
CPT/HCPCS: 72148

== ENCOUNTER → 2022-05-01 13:28 | Outpatient (BNVA) | payer OTHER, SELFPAY | PROVIDERS: PCP Internal Medicine; Visit Provider Internal Medicine | DX: I48.0 Paroxysmal atrial fibrillation (principal); Z79.01 Long term (current) use of anticoagulants; Z51.81 Encounter for therapeutic drug level monitoring | CPT/HCPCS: 85610; 99211 ==

== ENCOUNTER → 2022-05-08 13:09 | Outpatient (BNVA) | payer OTHER, SELFPAY | PROVIDERS: PCP Internal Medicine; Visit Provider Internal Medicine | DX: I48.0 Paroxysmal atrial fibrillation (principal); Z51.81 Encounter for therapeutic drug level monitoring; Z79.01 Long term (current) use of anticoagulants | CPT/HCPCS: 85610; 99211 ==

== ENCOUNTER → 2022-05-29 13:19 | Outpatient (BNVA) | payer OTHER, SELFPAY | PROVIDERS: PCP Internal Medicine; Visit Provider Internal Medicine | DX: I48.0 Paroxysmal atrial fibrillation (principal); Z79.01 Long term (current) use of anticoagulants; Z51.81 Encounter for therapeutic drug level monitoring | CPT/HCPCS: 85610; 99211 ==

== ENCOUNTER 2022-06-01 13:30 | Outpatient (REF) | payer OTHER, SELFPAY | END 2022-06-01 13:31 | disposition home or self-care (01) | LOC: HO.MDS 13:30 | PROVIDERS: Visit Provider Internal Medicine Medical Oncology | DX: D50.9 Iron deficiency anemia, unspecified (principal) | CPT/HCPCS: 96365; J2916 ==

== ENCOUNTER 2022-06-10 08:40 | Day surgery (SDC) | payer OTHER, SELFPAY ==
--- NOTE | 2022-06-09 10:40 | HO.ANESPROP2 ---
Documented by User: Janet Henderson NP 06/09/22 10:42 HPI - Anesthesia Eval Consult details Narrative: 77yo M for Upper Endoscopy Coumadin for afib PMFSH Active Problems Active Problems: All Active Problems (Updated 05/18/22 @ 15:04 by Summer Wills MD) Current use of anticoagulant therapy (Acute) Encounter for screening colonoscopy (Acute) Anemia (Acute) Iron deficiency anemia (Acute) Gastritis (Acute) Elevated PSA (Acute) Dyslipidemia (Acute) HTN (hypertension) (Acute) Past Medical History Medical History (Updated 05/18/22 @ 15:04 by Summer Wills MD) Atrial fibrillation Dyslipidemia HTN (hypertension) Tubular adenoma Family History Family History Father Throat cancer Brother Prostate cancer Asthma Sister Hypertension Diabetes Mother Hypertension Surgical History Surgical History (Updated 06/03/22 @ 14:58 by Jailene Lindquist RN) History of esophagogastroduodenoscopy (EGD) Hx of bilateral cataract extraction Hx of colonoscopy Social History Social History (Updated 05/18/22 @ 14:55 by Zahraa Gotti RN) Household Members: None Housing: Apartment Are you a primary home care chaplain to a significant other at home: No Do you presently have visiting nurse or other home services: Yes (every 6 months) Alcohol intake: former Patient Tobacco Use Status: Former Tobacco user Tobacco use type: Cigarette Advance Directives: No Advance Directives Information Provided: Yes service: No Current occupational status: retired Meds Allergies Allergy/AdvReac Type Severity Reaction Status Date / Time No Known Allergies Allergy Verified 05/29/22 13:20 [No Known Allergies*] Home Medications Medication Instructions Recorded Confirmed Last Taken Type aspirin 81 mg tablet,delayed 81 mg PO DAILY 02/19/21 05/18/22 Unknown History release atorvastatin 80 mg tablet 80 mg PO BEDTIME 02/19/21 05/18/22 Unknown History cholecalciferol (vitamin D3) 25 25 mcg PO DAILY 02/19/21 05/18/22 Unknown History mcg (1,000 unit) tablet lisinopril 40 mg tablet 40 mg PO DAILY 02/19/21 05/18/22 Unknown History travoprost 0.004 % eye drops 1 drp ophthalmic (eye) BEDTIME 02/19/21 05/18/22 Unknown History dorzolamide 22.3 mg-timolol 6.8 22.3 drp ophthalmic (eye) BID 04/03/21 05/18/22 Unknown History mg/mL eye drops ferrous sulfate 325 mg (65 mg 1 tab PO DAILY 04/03/21 05/18/22 Unknown History iron) tablet (FeroSul) amlodipine 5 mg tablet 5 mg PO DAILY 07/15/21 05/18/22 Unknown History furosemide 20 mg tablet 20 mg PO BID 08/15/21 05/18/22 Unknown History warfarin 5 mg tablet 5 mg PO DAILY 01/23/22 05/29/22 Unknown History tizanidine 2 mg tablet 2 mg PO Q8H PRN muscle spasm 05/01/22 05/18/22 Unknown History Exam Exam Date and Time: June 09, 2022 1040 Pertinent Lab Results Pertinent Lab Results: Laboratory Tests 05/18/22 05/18/22 14:38 14:38 WBC 4.8 Hgb 8.7 L Hct 28.4 L Plt Count 162 Sodium 138 Potassium 4.0 Chloride 109 H Carbon Dioxide 23 BUN 13 Creatinine 1.28 Assessment and Plan Assessment Anesthesia Assessment: Chart Reviewed Documented by User: Bernadette Vaz MD 06/10/22 10:04 [facility] Past Medical History Medical History (Updated 05/18/22 @ 15:04 by Summer Wills MD) Atrial fibrillation Dyslipidemia HTN (hypertension) Tubular adenoma Family History Family History Father Throat cancer Brother Prostate cancer Asthma Sister Hypertension Diabetes Mother Hypertension Family history of problems with anesthesia: No Surgical History Surgical History (Updated 06/03/22 @ 14:58 by Jailene Lindquist RN) History of esophagogastroduodenoscopy (EGD) Hx of bilateral cataract extraction Hx of colonoscopy History of Problems with Anesthesia: No Social History Social History (Updated 05/18/22 @ 14:55 by Zahraa Gotti RN) Household Members: None Housing: Apartment Are you a primary home care chaplain to a significant other at home: No Do you presently have visiting nurse or other home services: Yes (every 6 months) Alcohol intake: former Patient Tobacco Use Status: Former Tobacco user Tobacco use type: Cigarette Advance Directives: No Advance Directives Information Provided: Yes service: No Current occupational status: retired Meds Allergies Allergy/AdvReac Type Severity Reaction Status Date / Time No Known Allergies Allergy Verified 05/29/22 13:20 [No Known Allergies*] Home Medications Medication Instructions Recorded Confirmed Last Taken Type aspirin 81 mg tablet,delayed 81 mg PO DAILY 02/19/21 05/18/22 Unknown History release atorvastatin 80 mg tablet 80 mg PO BEDTIME 02/19/21 05/18/22 Unknown History cholecalciferol (vitamin D3) 25 25 mcg PO DAILY 02/19/21 05/18/22 Unknown History mcg (1,000 unit) tablet lisinopril 40 mg tablet 40 mg PO DAILY 02/19/21 05/18/22 Unknown History travoprost 0.004 % eye drops 1 drp ophthalmic (eye) BEDTIME 02/19/21 05/18/22 Unknown History dorzolamide 22.3 mg-timolol 6.8 22.3 drp ophthalmic (eye) BID 04/03/21 05/18/22 Unknown History mg/mL eye drops ferrous sulfate 325 mg (65 mg 1 tab PO DAILY 04/03/21 05/18/22 Unknown History iron) tablet (FeroSul) amlodipine 5 mg tablet 5 mg PO DAILY 07/15/21 05/18/22 Unknown History furosemide 20 mg tablet 20 mg PO BID 08/15/21 05/18/22 Unknown History warfarin 5 mg tablet 5 mg PO DAILY 01/23/22 05/29/22 Unknown History tizanidine 2 mg tablet 2 mg PO Q8H PRN muscle spasm 05/01/22 05/18/22 Unknown History Exam Airway Mallampati Class: II TM Dist: >3cm Neck ROM: Full Denture: Upper and Lower Heart: rrr Lungs: cta Assessment and Plan Assessment Anesthesia Assessment: Anesthesia Plan Discussed and Chart Reviewed Final Anesthetic Review Family History of Problems with Anesthesia: No History of Problems with Anesthesia: No NPO: Yes ASA Class: III Final Preanesthetic Review: No Changes in Pt Med Stat, Meds/Allgs Chart Reviewed and Consent Obtained/Reviewed Patient Risk: Intermediate Procedure Risk: Intermediate Anesthetic Plan Anesthetic Plan: MAC: Disposition: Standard PACU
[2022-06-10 09:50] VITALS: BP 171/63; PULSE 55; RESP 17; TEMP 36.3; O2SAT 100; BMI 28.0
--- NOTE | 2022-06-10 09:59 | MHC.SHP ---
Pre-Procedural Eval Section A Date of Service: 06/10/22 Section B Chief Complaint: anemia Details of Present Illness: gastritis and erosions on capsule endoscopy Relevant Family History (Specify if Yes): No Relevant Social History: None (ex smoker) Present Medications: see Short Stay Collaborative assessment Medical History: Significant History (Atrial fibrillation Dyslipidemia HTN (hypertension) Tubular adenoma) History of Previous Operations: Relevant previous surgery/procedure and date(s) (History of esophagogastroduodenoscopy (EGD) Hx of bilateral cataract extraction Hx of colonoscopy) Allergies: Allergies Allergy/AdvReac Type Severity Reaction Status Date / Time No Known Allergies Allergy Verified 05/29/22 13:20 [No Known Allergies*] Review of Systems Sugical H&P ROS: Negative: Constitution, Cardiovascular, Respiratory, Neurological, Psychiatric, Hem-Onc, Allergic/Immunologic, Gastrointestinal, Genitourinary, Musculoskeletal, Integumentary, Endocrine and Eyes/Ears/Nose/Throat Exam Surgical H&P Exam: Normal: HEENT, Normal: Heart, Normal: Lungs, Normal: Extremities, Normal: Abdomen, Normal: Skin and Normal: Neurological Plan Diagnosis/Plan: Unchanged I have reviewed the history and physical and performed a pertinent physical examination on my patient. No changes have occurred unless specified.
[2022-06-10 10:21] VITALS: BP 171/63; PULSE 56; RESP 16; TEMP 36.3; O2SAT 100
[2022-06-10] MEDS: Lactated Ringers 1,000 ML 100 ML IVCONT (10:22)
[2022-06-10 10:25] LABS: INTERNATIONAL NORM RATIO 1.3 (0.9-1.1); Prothrombin Time 14.6 SEC (10.0-13.1)
--- NOTE | 2022-06-10 10:41 | W.PM.OPN ---
Operative Note Operative Note Date of Service: 06/10/22 Narrative: Procedure Description: EGD Indication: anemia Anesthesia: MAC FLEXIBLE TRANSORAL UPPER GASTROINTESTINAL ENDOSCOPY UPPER ENDOSCOPY Consent: Indications for the procedure and potential complications of bleeding, perforation, reaction to medications and missed diagnosis were discussed with the patient and informed consent was obtained. Instrument: Olympus GIF H 190 J mid size upper endoscope Monitoring: Vital signs and clinical assessment, continuous EKG monitoring, Pulse oximetry, Carbon Dioxide monitoring and blood pressure monitoring were done throughout the procedure. Procedure: The patient was placed in the left lateral decubitis position and pre-procedure medications were administered and a bite block was placed. The endoscope was inserted into the mouth and advanced under direct vision to the third part of duodenum. A careful inspection was made as the upper endoscope was withdrawn including a retroflexed examination of the proximal stomach; Findings and interventions are described below. Findings: Larynx:normal Esophagus: GE junction at 44 cm, diaphragm hiatus at 44 cm, esophagitis noted, mild Stomach: Patchy gastric erythema with scarring. Biopsies were obtained. Grade 2 flap valve on retroflexed examination of the cardia. Few flecks of dried blood noted but no focal lesions Duodenum: Normal bulb and descending duodenum, Intervention: Biopsies as noted above Impression/Findings: no active bleeding, or focal lesion seen today PLAN: can restart coumadin today cont to monitor HGB, iron infusions as needed if overt GI bleeding then can reconsider repeat endoscopies
[2022-06-10 10:53] VITALS: BP 125/54; PULSE 52; RESP 16; TEMP 36.1; O2SAT 100
[2022-06-10 11:08] VITALS: BP 108/63; PULSE 50; RESP 16; O2SAT 99
[2022-06-10 11:23] VITALS: BP 157/67; PULSE 54; RESP 16; TEMP 36.1; O2SAT 99
== END 2022-06-10 11:51 | disposition home or self-care (01) ==
PROVIDERS: Nurse Practitioner; PCP Internal Medicine; Visit Provider Internal Medicine Gastroenterology
PROC: 0DJ08ZZ Inspection of Upper Intestinal Tract, Via Natural or Artificial Opening Endoscopic (ICD-10-PCS; CPT 43235; principal; 2022-06-10 11:00)
DX: D50.9 Iron deficiency anemia, unspecified (principal); K29.40 Chronic atrophic gastritis without bleeding; K20.80 Other esophagitis without bleeding; K21.9 Gastro-esophageal reflux disease without esophagitis; K44.9 Diaphragmatic hernia without obstruction or gangrene; I10 Essential (primary) hypertension; E78.5 Hyperlipidemia, unspecified; I48.91 Unspecified atrial fibrillation; Z79.01 Long term (current) use of anticoagulants; Z79.82 Long term (current) use of aspirin; Z87.891 Personal history of nicotine dependence
CPT/HCPCS: 43239; 36415; 85610; 88305; 88342

== ENCOUNTER → 2022-06-12 13:47 | Outpatient (BNVA) | payer OTHER, SELFPAY | PROVIDERS: PCP Internal Medicine; Visit Provider Internal Medicine | DX: I48.0 Paroxysmal atrial fibrillation (principal); Z51.81 Encounter for therapeutic drug level monitoring; Z79.01 Long term (current) use of anticoagulants | CPT/HCPCS: 85610; 99211 ==

== ENCOUNTER → 2022-06-16 11:17 | Outpatient (BNVA) | payer OTHER, SELFPAY | PROVIDERS: PCP Internal Medicine; Visit Provider Internal Medicine | DX: I48.0 Paroxysmal atrial fibrillation (principal); Z79.01 Long term (current) use of anticoagulants; Z51.81 Encounter for therapeutic drug level monitoring | CPT/HCPCS: 85610; 99211 ==

== ENCOUNTER 2022-06-17 11:25 | Outpatient (REF) | payer OTHER, SELFPAY | END 2022-06-17 11:26 | disposition home or self-care (01) | LOC: HO.MDS 11:25 | PROVIDERS: Visit Provider Internal Medicine Medical Oncology | DX: D50.9 Iron deficiency anemia, unspecified (principal) | CPT/HCPCS: 96365; J2916 ==

== ENCOUNTER → 2022-06-22 08:50 | Outpatient (BNVA) | payer OTHER, SELFPAY | PROVIDERS: PCP Internal Medicine; Visit Provider Internal Medicine Gastroenterology | DX: K29.70 Gastritis, unspecified, without bleeding (principal); Z11.0 Encounter for screening for intestinal infectious diseases | CPT/HCPCS: 99211 ==

== ENCOUNTER 2022-06-22 16:06 | Outpatient (REF) | payer OTHER, SELFPAY ==
[2022-06-23 11:20] LABS: H Pylori Breath Test Negative (Negative)
== END 2022-06-22 16:07 | disposition home or self-care (01) ==
LOC: HO.LNP 16:06
PROVIDERS: Visit Provider Internal Medicine Gastroenterology
DX: K29.70 Gastritis, unspecified, without bleeding (principal); Z11.0 Encounter for screening for intestinal infectious diseases
CPT/HCPCS: 83013

== ENCOUNTER 2022-06-24 12:22 | Outpatient (REF) | payer OTHER, SELFPAY | END 2022-06-24 12:23 | disposition home or self-care (01) | LOC: HO.MDS 12:22 | PROVIDERS: Visit Provider Internal Medicine Medical Oncology | DX: D50.9 Iron deficiency anemia, unspecified (principal) | CPT/HCPCS: 96365; J2916 ==

== ENCOUNTER → 2022-06-26 13:27 | Outpatient (BNVA) | payer OTHER, SELFPAY | PROVIDERS: PCP Internal Medicine; Visit Provider Internal Medicine | DX: I48.0 Paroxysmal atrial fibrillation (principal); Z79.01 Long term (current) use of anticoagulants; Z51.81 Encounter for therapeutic drug level monitoring | CPT/HCPCS: 85610; 99211 ==

== ENCOUNTER 2022-07-01 12:48 | Outpatient (REF) | payer OTHER, SELFPAY | END 2022-07-01 12:49 | disposition home or self-care (01) | LOC: HO.MDS 12:48 | PROVIDERS: Visit Provider Internal Medicine Medical Oncology | DX: D50.9 Iron deficiency anemia, unspecified (principal) | CPT/HCPCS: 96365; J2916 ==

== ENCOUNTER → 2022-07-17 13:04 | Outpatient (BNVA) | payer OTHER, SELFPAY | PROVIDERS: PCP Internal Medicine; Visit Provider Internal Medicine | DX: I48.0 Paroxysmal atrial fibrillation (principal); Z79.01 Long term (current) use of anticoagulants; Z51.81 Encounter for therapeutic drug level monitoring | CPT/HCPCS: 85610; 99211 ==

== ENCOUNTER 2022-07-21 12:50 | Outpatient (REF) | payer OTHER, SELFPAY | END 2022-07-21 12:51 | disposition home or self-care (01) | LOC: HO.MDS 12:50 | PROVIDERS: Visit Provider Internal Medicine Medical Oncology | DX: D50.9 Iron deficiency anemia, unspecified (principal) | CPT/HCPCS: 96365; J1756 ==

== ENCOUNTER 2022-07-29 12:20 | Outpatient (REF) | payer OTHER, SELFPAY | END 2022-07-29 12:21 | disposition home or self-care (01) | LOC: HO.MDS 12:20 | PROVIDERS: Visit Provider Internal Medicine Medical Oncology | DX: D50.9 Iron deficiency anemia, unspecified (principal) | CPT/HCPCS: 96365; J1756 ==

== ENCOUNTER 2022-08-07 12:56 | Outpatient (REF) | payer OTHER, SELFPAY | END 2022-08-07 12:57 | disposition home or self-care (01) | LOC: HO.MDS 12:56 | PROVIDERS: Visit Provider Internal Medicine Medical Oncology | DX: D50.9 Iron deficiency anemia, unspecified (principal) | CPT/HCPCS: 96365; J1756 ==

== ENCOUNTER → 2022-08-12 13:05 | Outpatient (BNVA) | payer OTHER, SELFPAY | PROVIDERS: PCP Internal Medicine; Visit Provider Internal Medicine | DX: I48.0 Paroxysmal atrial fibrillation (principal); Z79.01 Long term (current) use of anticoagulants; Z51.81 Encounter for therapeutic drug level monitoring | CPT/HCPCS: 85610; 99211 ==

== ENCOUNTER 2022-08-14 13:21 | Outpatient (REF) | payer OTHER, SELFPAY ==
[2022-08-14 13:58] LABS: MANUAL DIFF FLAG NO
[2022-08-14 14:00] LABS: Basophils Percent Auto 0.4 % (0-2); Eosinophils Absolute Auto 0.2 X10*3/uL (0.0-0.4); Eosinophils Percent Auto 4.5 % (0-4); Hematocrit 27.3 % (42.0-52.0); Hemoglobin 8.8 g/dl (14.0-18.0); Imm Gran Abs Auto 0.01 X10*3/uL (0.00-0.03); Imm Gran Pct Auto 0.2 % (0.0-0.4); Lymphocytes Absolute Auto 1.1 X10*3/uL (1.2-4.9); Lymphocytes Percent Auto 20.4 % (20-40); Mean Corpuscular HGB Conc 32.2 g/dl (31.0-36.0); Mean Corpuscular Hemoglobin 29.8 pg (27.0-33.0); Mean Corpuscular Volume 92.5 fL (80.0-98.0); Mean Platelet Volume 9.1 fL (9.4-12.4); Monocytes Absolute Auto 0.8 X10*3/uL (0.1-1.2); Monocytes Percent Auto 15.2 % (2-11); Neutrophils Absolute Auto 3.1 x10*3/uL (2.0-8.3); Neutrophils Percent Auto 59.3 % (45-73); Platelet Count 144 X10*3/uL (160-400); Red Blood Count 2.95 X10*6/uL (4.60-5.80); Red Cell Distribution Width 17.8 % (11.0-16.0); White Blood Count 5.1 X10*3/uL (4.8-10.8)
== END 2022-08-14 13:22 | disposition home or self-care (01) ==
LOC: HO.MDS 13:21
PROVIDERS: Visit Provider Internal Medicine Medical Oncology
DX: D50.9 Iron deficiency anemia, unspecified (principal)
CPT/HCPCS: 36415; 85025; 96365; J1756

== ENCOUNTER 2022-08-19 12:25 | Outpatient (REF) | payer OTHER, SELFPAY | END 2022-08-19 12:26 | disposition home or self-care (01) | LOC: HO.MDS 12:25 | PROVIDERS: Visit Provider Internal Medicine Medical Oncology | DX: D50.9 Iron deficiency anemia, unspecified (principal) | CPT/HCPCS: 96365; J1756 ==

== ENCOUNTER 2022-08-26 12:15 | Outpatient (REF) | payer OTHER, SELFPAY | END 2022-08-26 12:16 | disposition home or self-care (01) | LOC: HO.MDS 12:15 | PROVIDERS: Visit Provider Internal Medicine Medical Oncology | DX: D50.9 Iron deficiency anemia, unspecified (principal) | CPT/HCPCS: 96365; J1756 ==

== ENCOUNTER 2022-09-02 12:13 | Outpatient (REF) | payer OTHER, SELFPAY | END 2022-09-02 12:14 | disposition home or self-care (01) | LOC: HO.MDS 12:13 | PROVIDERS: Visit Provider Internal Medicine Medical Oncology | DX: D50.9 Iron deficiency anemia, unspecified (principal) | CPT/HCPCS: 96365; J1756 ==

== ENCOUNTER 2022-09-09 12:14 | Outpatient (REF) | payer OTHER, SELFPAY | END 2022-09-09 12:15 | disposition home or self-care (01) | LOC: HO.MDS 12:14 | PROVIDERS: Visit Provider Internal Medicine Medical Oncology | DX: D50.9 Iron deficiency anemia, unspecified (principal) | CPT/HCPCS: 96365; J1756 ==

== ENCOUNTER 2022-09-11 | Outpatient (REF) | payer OTHER, SELFPAY | END 2022-09-11 00:01 | disposition home or self-care (01) | LOC: CF | PROVIDERS: Visit Provider Internal Medicine Gastroenterology | DX: I48.0 Paroxysmal atrial fibrillation (principal); Z51.81 Encounter for therapeutic drug level monitoring; Z79.01 Long term (current) use of anticoagulants; A04.8 Other specified bacterial intestinal infections | CPT/HCPCS: 85610; 99211; 99212 ==

== ENCOUNTER → 2022-10-09 13:00 | Outpatient (BNVA) | payer OTHER, SELFPAY | PROVIDERS: PCP Internal Medicine; Visit Provider Internal Medicine | DX: I48.0 Paroxysmal atrial fibrillation (principal); Z79.01 Long term (current) use of anticoagulants; Z51.81 Encounter for therapeutic drug level monitoring | CPT/HCPCS: 85610; 99211 ==

== ENCOUNTER → 2022-11-06 13:01 | Outpatient (BNVA) | payer OTHER, SELFPAY | PROVIDERS: PCP Internal Medicine; Visit Provider Internal Medicine | DX: I48.0 Paroxysmal atrial fibrillation (principal); Z79.01 Long term (current) use of anticoagulants; Z51.81 Encounter for therapeutic drug level monitoring | CPT/HCPCS: 85610; 99211 ==

== ENCOUNTER → 2022-11-20 13:05 | Outpatient (BNVA) | payer OTHER, SELFPAY | PROVIDERS: PCP Internal Medicine; Visit Provider Internal Medicine | DX: I48.0 Paroxysmal atrial fibrillation (principal); Z79.01 Long term (current) use of anticoagulants; Z51.81 Encounter for therapeutic drug level monitoring | CPT/HCPCS: 85610; 99211 ==

== ENCOUNTER 2022-12-01 12:52 | Outpatient (REF) | payer OTHER, SELFPAY | END 2022-12-01 12:53 | disposition home or self-care (01) | LOC: HO.MDS 12:52 | PROVIDERS: Visit Provider Internal Medicine Medical Oncology | DX: D50.9 Iron deficiency anemia, unspecified (principal) | CPT/HCPCS: 96365; J1756 ==

== ENCOUNTER 2022-12-09 12:47 | Outpatient (REF) | payer OTHER, SELFPAY | END 2022-12-09 12:48 | disposition home or self-care (01) | LOC: HO.MDS 12:47 | PROVIDERS: Visit Provider Internal Medicine Medical Oncology | DX: D50.9 Iron deficiency anemia, unspecified (principal) | CPT/HCPCS: 96365; J1756 ==

== ENCOUNTER → 2022-12-11 12:59 | Outpatient (BNVA) | payer OTHER, SELFPAY | PROVIDERS: PCP Internal Medicine; Visit Provider Internal Medicine | DX: I48.0 Paroxysmal atrial fibrillation (principal); Z79.01 Long term (current) use of anticoagulants; Z51.81 Encounter for therapeutic drug level monitoring | CPT/HCPCS: 85610; 99211 ==

== ENCOUNTER 2022-12-16 12:49 | Outpatient (REF) | payer OTHER, SELFPAY | END 2022-12-16 12:50 | disposition home or self-care (01) | LOC: HO.MDS 12:49 | PROVIDERS: Visit Provider Internal Medicine Medical Oncology | DX: D50.9 Iron deficiency anemia, unspecified (principal) | CPT/HCPCS: 96365; J1756 ==

== ENCOUNTER 2022-12-23 12:50 | Outpatient (REF) | payer OTHER, SELFPAY ==
[2022-12-23 13:55] LABS: MANUAL DIFF FLAG NO
[2022-12-23 14:11] LABS: Basophils Percent Auto 0.2 % (0-2); Eosinophils Absolute Auto 0.2 X10*3/uL (0.0-0.4); Eosinophils Percent Auto 4.5 % (0-4); Hematocrit 32.4 % (42.0-52.0); Hemoglobin 10.5 g/dl (14.0-18.0); Imm Gran Abs Auto 0.01 X10*3/uL (0.00-0.03); Imm Gran Pct Auto 0.2 % (0.0-0.4); Lymphocytes Absolute Auto 1.1 X10*3/uL (1.2-4.9); Lymphocytes Percent Auto 22.5 % (20-40); Mean Corpuscular HGB Conc 32.4 g/dl (31.0-36.0); Mean Corpuscular Hemoglobin 30.6 pg (27.0-33.0); Mean Corpuscular Volume 94.5 fL (80.0-98.0); Mean Platelet Volume 9.8 fL (9.4-12.4); Monocytes Absolute Auto 0.5 X10*3/uL (0.1-1.2); Neutrophils Percent Auto 61.6 % (45-73); Platelet Count 142 X10*3/uL (160-400); Red Blood Count 3.43 X10*6/uL (4.60-5.80); Red Cell Distribution Width 14.6 % (11.0-16.0); White Blood Count 4.9 X10*3/uL (4.8-10.8)
== END 2022-12-23 12:51 | disposition home or self-care (01) ==
LOC: HO.MDS 12:50
PROVIDERS: Visit Provider Internal Medicine Medical Oncology
DX: D50.9 Iron deficiency anemia, unspecified (principal)
CPT/HCPCS: 36415; 85025; 96365; J1756

== ENCOUNTER 2022-12-30 13:23 | Outpatient (REF) | payer OTHER, SELFPAY | END 2022-12-30 13:24 | disposition home or self-care (01) | LOC: HO.MDS 13:23 | PROVIDERS: Visit Provider Internal Medicine Medical Oncology | DX: D50.9 Iron deficiency anemia, unspecified (principal) | CPT/HCPCS: 96365; J1756 ==

== ENCOUNTER → 2023-01-01 12:58 | Outpatient (BNVA) | payer OTHER, SELFPAY | PROVIDERS: PCP Internal Medicine; Visit Provider Internal Medicine | DX: I48.0 Paroxysmal atrial fibrillation (principal); Z79.01 Long term (current) use of anticoagulants; Z51.81 Encounter for therapeutic drug level monitoring | CPT/HCPCS: 85610; 99211 ==

== ENCOUNTER 2023-01-06 13:19 | Outpatient (REF) | payer OTHER, SELFPAY | END 2023-01-06 13:20 | disposition home or self-care (01) | LOC: HO.MDS 13:19 | PROVIDERS: Visit Provider Internal Medicine Medical Oncology | DX: D50.9 Iron deficiency anemia, unspecified (principal) | CPT/HCPCS: 96365; J1756 ==

== ENCOUNTER → 2023-01-08 10:48 | Outpatient (BNVA) | payer OTHER, SELFPAY | PROVIDERS: PCP Internal Medicine; Referring Provider Internal Medicine; Visit Provider Internal Medicine Gastroenterology | DX: D50.9 Iron deficiency anemia, unspecified (principal) | CPT/HCPCS: 99212 ==

== ENCOUNTER → 2023-01-22 13:00 | Outpatient (BNVA) | payer OTHER, SELFPAY | PROVIDERS: PCP Internal Medicine; Visit Provider Internal Medicine | DX: I48.0 Paroxysmal atrial fibrillation (principal); Z79.01 Long term (current) use of anticoagulants; Z51.81 Encounter for therapeutic drug level monitoring | CPT/HCPCS: 85610; 99211 ==

== ENCOUNTER → 2023-02-19 12:59 | Outpatient (BNVA) | payer OTHER, SELFPAY | PROVIDERS: PCP Internal Medicine; Visit Provider Internal Medicine | DX: I48.0 Paroxysmal atrial fibrillation (principal); Z79.01 Long term (current) use of anticoagulants; Z51.81 Encounter for therapeutic drug level monitoring | CPT/HCPCS: 85610; 99211 ==

== ENCOUNTER → 2023-03-05 13:03 | Outpatient (BNVA) | payer OTHER, SELFPAY | PROVIDERS: PCP Internal Medicine; Visit Provider Internal Medicine | DX: I48.0 Paroxysmal atrial fibrillation (principal); Z79.01 Long term (current) use of anticoagulants; Z51.81 Encounter for therapeutic drug level monitoring | CPT/HCPCS: 85610; 99211 ==

== ENCOUNTER → 2023-03-26 12:58 | Outpatient (BNVA) | payer OTHER, SELFPAY | PROVIDERS: PCP Internal Medicine; Visit Provider Internal Medicine | DX: I48.0 Paroxysmal atrial fibrillation (principal); Z79.01 Long term (current) use of anticoagulants; Z51.81 Encounter for therapeutic drug level monitoring | CPT/HCPCS: 85610; 99211 ==

== ENCOUNTER → 2023-04-09 13:14 | Outpatient (BNVA) | payer OTHER, SELFPAY | PROVIDERS: PCP Internal Medicine; Visit Provider Internal Medicine | DX: I48.0 Paroxysmal atrial fibrillation (principal); Z79.01 Long term (current) use of anticoagulants; Z51.81 Encounter for therapeutic drug level monitoring | CPT/HCPCS: 85610; 99211 ==

== ENCOUNTER 2023-04-16 06:51 | Outpatient (REF) | payer OTHER, SELFPAY ==
[2023-04-20 10:38] LABS: Free Prostate Spec Ag 2.1 ng/mL; Percent Free Prostate Spec Ag 46 % (calc) (>25); Prostate Specific Ag Total 4.6 ng/mL (< OR = 4.0)
== END 2023-04-16 06:52 | disposition home or self-care (01) ==
LOC: HO.LAB 06:51
PROVIDERS: PCP Internal Medicine; Visit Provider Urology
DX: R97.20 Elevated prostate specific antigen [PSA] (principal); Z12.5 Encounter for screening for malignant neoplasm of prostate
CPT/HCPCS: 36415; 84153; 84154

== ENCOUNTER → 2023-04-21 11:23 | Outpatient (BNVA) | payer OTHER, SELFPAY | PROVIDERS: PCP Internal Medicine; Visit Provider Urology | DX: N40.1 Benign prostatic hyperplasia with lower urinary tract symptoms (principal); N13.8 Other obstructive and reflux uropathy; R39.11 Hesitancy of micturition | CPT/HCPCS: 99212 ==

== ENCOUNTER → 2023-04-23 13:04 | Outpatient (BNVA) | payer OTHER, SELFPAY | PROVIDERS: PCP Internal Medicine; Visit Provider Internal Medicine | DX: I48.0 Paroxysmal atrial fibrillation (principal); Z79.01 Long term (current) use of anticoagulants; Z51.81 Encounter for therapeutic drug level monitoring | CPT/HCPCS: 85610; 99211 ==

== ENCOUNTER 2023-05-21 13:03 | Outpatient (AMB) | payer OTHER, SELFPAY ==
[2023-05-21 13:09] LABS: Prothrombin Time Whole Bld POC 32.4 sec (11.1-13.5); ~PT, ~INR - Anti Coag Clinic 2.7 (0.9-1.1)
--- NOTE | 2023-05-21 13:12 | MHC.OFFVISCO ---
Intake Intake Visit Reasons: Anticoagulation Allergies No Known Allergies [No Known Allergies*] Allergy (Verified 05/21/23 13:05) Medication List - Last Reconciled 05/21/23 by Lisa Ruth RN amlodipine 5 mg PO DAILY aspirin 81 mg PO DAILY atorvastatin 80 mg PO BEDTIME cholecalciferol (vitamin D3) 25 mcg PO DAILY dorzolamide-timolol 22.3-6.8 mg/mL 22.3 drps ophthalmic (eye) BID ferrous sulfate (FeroSul) 1 tab PO DAILY furosemide 20 mg PO BID lisinopril 40 mg PO DAILY octreotide acetate (Mycapssa) 20 mg PO DAILY terazosin 5 mg PO BEDTIME 30 days travoprost 0.004% 1 drp ophthalmic (eye) BEDTIME warfarin 5 mg See Protocol PO DAILY Nursing Note INR: 2.7 in therapeutic range Medications and supplements reviewed No changes in health, diet, medications, or supplements, Denies any signs and symptoms of bleeding or bruising or clotting. Bleeding, bruising, clotting discussed Nutritional guidance given Dose: 5MG X 3 DAYS / 2.5MG X 4 DAYS F/U INR: 4 WEEKS Patient verbalizes understanding of instructions given Anti-Coag Initial Assessment Social Hx Patient Tobacco Use Status: Former Tobacco user Tobacco use type: Cigarette alcohol intake: former Alcohol intake frequency: does not drink Coding Level of Care Code Est Patient Level 1 Diagnoses Current use of anticoagulant therapy Z79.01 Assessment & Plan Assessment & Plan (1) Current use of anticoagulant therapy: Comment: warfarin-Fabiolaun Margarette- need to confirm ok to stop 5 days prior to colonoscopy-unable to send note through expanse Patient aware this must be confirmed, there were no major barriers to understanding identified 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
== END 2023-05-21 13:13 | disposition home or self-care (01) ==
LOC: HO.ACS 13:03
PROVIDERS: PCP Internal Medicine; Visit Provider Internal Medicine
DX: Z79.01 Long term (current) use of anticoagulants (principal)

== ENCOUNTER → 2023-05-21 13:03 | Outpatient (BNVA) | payer OTHER, SELFPAY | PROVIDERS: PCP Internal Medicine; Visit Provider Internal Medicine | DX: I48.0 Paroxysmal atrial fibrillation (principal); Z79.01 Long term (current) use of anticoagulants; Z51.81 Encounter for therapeutic drug level monitoring | CPT/HCPCS: 85610; 99211 ==

== ENCOUNTER 2023-06-18 13:03 | Outpatient (AMB) | payer OTHER, SELFPAY ==
[2023-06-18 13:07] LABS: Prothrombin Time Whole Bld POC 41.4 sec (11.1-13.5); ~PT, ~INR - Anti Coag Clinic 3.4 (0.9-1.1)
--- NOTE | 2023-06-18 13:09 | MHC.OFFVISCO ---
Intake Intake Visit Reasons: Anticoagulation Allergies No Known Allergies [No Known Allergies*] Allergy (Verified 06/18/23 13:04) Medication List - Last Reconciled 06/18/23 by Lisa Ruth RN amlodipine 5 mg PO DAILY aspirin 81 mg PO DAILY atorvastatin 80 mg PO BEDTIME cholecalciferol (vitamin D3) 25 mcg PO DAILY dorzolamide-timolol 22.3-6.8 mg/mL 22.3 drps ophthalmic (eye) BID ferrous sulfate (FeroSul) 1 tab PO DAILY furosemide 20 mg PO BID lisinopril 40 mg PO DAILY octreotide acetate (Mycapssa) 20 mg PO DAILY terazosin 5 mg PO BEDTIME 30 days travoprost 0.004% 1 drp ophthalmic (eye) BEDTIME warfarin 5 mg See Protocol PO DAILY Nursing Note INR: 3.4 out of therapeutic range Medications and supplements reviewed No changes in health, medications, or supplements, 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 Bleeding, bruising, clotting discussed Nutritional guidance given - make sure to eat enough protein, greens, water with hot weather, eat greens today and tomorrow Dose: 5mg mwf/ 2.5mg x 4 days F/U INR: 1month 'Patient verbalizes understanding of instructions given Anti-Coag Initial Assessment Social Hx Patient Tobacco Use Status: Former Tobacco user Tobacco use type: Cigarette alcohol intake: former Alcohol intake frequency: does not drink Coding Level of Care Code Est Patient Level 1 Diagnoses Current use of anticoagulant therapy Z79.01 Assessment & Plan Assessment & Plan (1) Current use of anticoagulant therapy: Comment: warfarin-Otto Pfeiffer- need to confirm ok to stop 5 days prior to colonoscopy-unable to send note through expanse Patient aware this must be confirmed, there were no major barriers to understanding identified Code(s): Z79.01 - half-way (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
== END 2023-06-18 13:19 | disposition home or self-care (01) ==
LOC: HO.ACS 13:03
PROVIDERS: PCP Internal Medicine; Visit Provider Internal Medicine
DX: Z79.01 Long term (current) use of anticoagulants (principal)

== ENCOUNTER → 2023-06-18 13:03 | Outpatient (BNVA) | payer OTHER, SELFPAY | PROVIDERS: PCP Internal Medicine; Visit Provider Internal Medicine | DX: I48.0 Paroxysmal atrial fibrillation (principal); Z79.01 Long term (current) use of anticoagulants; Z51.81 Encounter for therapeutic drug level monitoring | CPT/HCPCS: 85610; 99211 ==

== ENCOUNTER 2023-06-22 15:04 | Outpatient (AMB) | payer OTHER, SELFPAY ==
--- NOTE | 2023-06-22 15:11 | MHC.OFFVIS ---
Intake Intake Visit Reasons: Medication Follow up Intake Note: Patient is present for Follow Up medication Urology Med: Terazosin Antibiotic Allergy: None Blood Thinner: Aspirin Pharmacy: [facility] Allergies No Known Allergies [No Known Allergies*] Allergy (Verified 06/22/23 15:14) Medication List - Last Reconciled 06/22/23 by Scout Melo MD amlodipine 5 mg PO DAILY aspirin 81 mg PO DAILY atorvastatin 80 mg PO BEDTIME cholecalciferol (vitamin D3) 25 mcg PO DAILY dorzolamide-timolol 22.3-6.8 mg/mL 22.3 drps ophthalmic (eye) BID ferrous sulfate (FeroSul) 1 tab PO DAILY furosemide 20 mg PO BID lisinopril 40 mg PO DAILY octreotide acetate (Mycapssa) 20 mg PO DAILY terazosin 5 mg PO BEDTIME 90 days travoprost 0.004% 1 drp ophthalmic (eye) BEDTIME warfarin 5 mg See Protocol PO DAILY HPI HPI Comments History of Present Illness Details Jamie is a very pleasant Occitan speaking male. He is a patient of . He is seen for the following urologic conditions - microscopic hematuria - bladder outlet obstruction Occitan translation provided in office by qualified medical delivery technician Lower urinary tract symptoms Weakness of stream with urinary urge Terazosin 5 mg follow-up Has been effective with improved urination Discussed procedure versus continue medications Review in 6 months Microscopic hematuria Prior evaluation to be 19 with a negative workup Persistent 2+ hematuria with evaluation by Nephrology Remains on anticoagulation Prior history of urinary tract infections Had previously been on tamsulosin which he no longer takes Reports effective bladder storage and voiding parameters PSA 04/29 4.4, 04/30 4.5 46% Free Yearly review [facility] Medical History Atrial fibrillation Dyslipidemia HTN (hypertension) Tubular adenoma Surgical History History of esophagogastroduodenoscopy (EGD) Hx of bilateral cataract extraction Hx of colonoscopy Family History Father Throat cancer Brother Prostate cancer Asthma Sister Hypertension Diabetes Mother Hypertension Social History Household Members: None Housing: Apartment Are you a primary pharmacist critical care to a significant other at home: No Do you presently have visiting nurse or other home services: Yes (every 6 months) Alcohol intake: former Patient Tobacco Use Status: Former Tobacco user Tobacco use type: Cigarette service: No Current occupational status: retired Review of Systems Const Denies chills and Denies fever(s) Card Reports no additional complaints and Denies syncope Resp Denies cough GI Denies abdominal pain and Denies heartburn Reports as per HPI and Denies change in libido Neuro Denies syncope Psych Denies change in libido Endo Denies change in libido Physical Exam Const General: cooperative, healthy appearing, comfortable and no acute distress Orientation/consciousness: patient oriented x3 HEENT Face and sinus: Yes normal facial exam Mouth: moist mucous membranes Neck Neck: Yes normal visual inspection, Yes full ROM and Yes trachea midline Chest Chest palpation & inspection: normal inspection of the chest Resp Effort & Inspection: normal respiratory effort, able to speak in complete sentences and no respiratory distress GI Inspection: Yes normal to inspection Back/Spine/Pelvis Cervical Spine: normal cervical lordosis Thoracic/Lumbar Spine: thoracic and lumbar spine normal to inspection Skin General skin exam: no rashes or lesions noted Neuro General: patient oriented x3, gait normal, tone normal and moves all extremities Extrem General: Yes normal to inspection and Yes capillary refill normal Assessment & Plan Assessment & Plan (1) BPH w urinary obs/LUTS: Code(s): N40.1 - Benign prostatic hyperplasia with lower urinary tract symptoms; N13.8 - Other obstructive and reflux uropathy (2) Urinary hesitancy: Code(s): R39.11 - Hesitancy of micturition Plan Six month follow-up Orders: Orders AMB Urinalysis Automated Today Z13.9 - Encounter for screening, unspecified Medications: Changed From terazosin 5 mg PO BEDTIME 30 caps 1RF 30 days N40.1 - Benign prostatic hyperplasia with lower urinary tract symptoms, R35.0 - Frequency of micturition To terazosin 5 mg PO BEDTIME 90 caps 1RF 90 days N40.1 - Benign prostatic hyperplasia with lower urinary tract symptoms, R35.0 - Frequency of micturition Patient Instructions: Imaging studies, laboratory and physical exam results were discussed and reviewed in detail. No major barriers to patient understanding were identified. An opportunity to ask questions regarding the treatment plan was provided. All questions were answered. The patient expressed understanding and agreement with the above treatment plan. The patient is aware they should contact our office by phone for worsening of their current condition or the appearance of new urologic symptoms. Compliance is encouraged with any medications and followup testing that is ordered. It is a privilege to participate in the urologic care of your patient. If you have any questions or concerns regarding treatment for the above conditions, or other urologic issues, please do not hesitate to contact me. The office telephone contact is [phone]. This note is constructed using voice recognition software. While every effort has been made to ensure accuracy automobile leasing supervisor errors may have been included. Yours sincerely, Dr Scout Melo MD, [facility] - Urology Providers of Expert, Compassionate Care for the Genitourinary System Coding Level of Care Code Est Pt Level 3 (69170) Diagnoses BPH w urinary obs/LUTS N40.1; N13.8 Urinary hesitancy R39.11
== END 2023-06-22 15:48 | disposition home or self-care (01) ==
LOC: HO.HUSH 15:04
PROVIDERS: PCP Internal Medicine; Visit Provider Urology
DX: N40.1 Benign prostatic hyperplasia with lower urinary tract symptoms (principal); N13.8 Other obstructive and reflux uropathy; R39.11 Hesitancy of micturition
CPT/HCPCS: 99213

== ENCOUNTER → 2023-06-22 15:04 | Outpatient (BNVA) | payer OTHER, SELFPAY | PROVIDERS: PCP Internal Medicine; Visit Provider Urology | DX: N40.1 Benign prostatic hyperplasia with lower urinary tract symptoms (principal); N13.8 Other obstructive and reflux uropathy; R39.11 Hesitancy of micturition; Z79.899 Other long term (current) drug therapy | CPT/HCPCS: 99212 ==

== ENCOUNTER 2023-07-01 07:31 | Outpatient (REF) | payer OTHER, SELFPAY ==
[2023-07-01 10:40] LABS: Appearance Urine Clear; Color Urine Yellow; Glucose Urine UA Negative (Negative); Leukocyte Esterase Urine Negative (Negative); Nitrite Urine Negative (Negative); PH 5.5 (5.0-9.0); Urine Blood Negative (Negative); Urine Ketones Negative (Negative); Urine Protein Trace mg/dL (Neg-Trace)
[2023-07-01 10:44] LABS: Bacteria Urine None Seen (None Seen); Hyaline Casts Urine 0-2 /LPF (0-2); RBC Urine 0-2 /HPF (0-2); Squamous Epithelial Cell Urine 0-2 /HPF (0-2); WBC Urine 0-5 /HPF (0-5)
== END 2023-07-01 07:32 | disposition home or self-care (01) ==
LOC: HO.LAB 07:31
PROVIDERS: PCP Internal Medicine; Visit Provider Urology
DX: Z12.5 Encounter for screening for malignant neoplasm of prostate (principal); N13.8 Other obstructive and reflux uropathy; N40.1 Benign prostatic hyperplasia with lower urinary tract symptoms
CPT/HCPCS: 81001; 87086

== ENCOUNTER 2023-07-16 13:03 | Outpatient (AMB) | payer OTHER, SELFPAY ==
[2023-07-16 13:12] LABS: Prothrombin Time Whole Bld POC 48.2 sec (11.1-13.5)
--- NOTE | 2023-07-16 13:14 | MHC.OFFVISCO ---
Intake Intake Visit Reasons: Anticoagulation Allergies No Known Allergies [No Known Allergies*] Allergy (Verified 07/16/23 13:07) Medication List - Last Reconciled 07/16/23 by Sandie Doran RN amlodipine 5 mg PO DAILY aspirin 81 mg PO DAILY atorvastatin 80 mg PO BEDTIME cholecalciferol (vitamin D3) 25 mcg PO DAILY dorzolamide-timolol 22.3-6.8 mg/mL 22.3 drps ophthalmic (eye) BID ferrous sulfate (FeroSul) 1 tab PO DAILY furosemide 20 mg PO BID lisinopril 40 mg PO DAILY octreotide acetate (Mycapssa) 20 mg PO DAILY terazosin 5 mg PO BEDTIME 90 days travoprost 0.004% 1 drp ophthalmic (eye) BEDTIME warfarin 5 mg See Protocol PO DAILY Nursing Note Amb to ACS feeling well Medications and supplements reviewed No changes in health, diet, medications, or supplements Denies any unusual signs and symptoms of bruising, bleeding Denies any new Chest pain, SOB, or clotting INR: 4.0 above therapeutic range, pt not sure why elevated, not eating a lot of reds, no change in greens Nutritional guidance given: greens today then balance greens and reds in diet Dose: hold warfarin today the reusme usual dosing tomorrow; 5mg x 3 days and 2.5mg x 4 days F/U INR:1 week Patient verbalizes understanding of instructions given with accurate read back/ teach back of dosing Anti-Coag Initial Assessment Social Hx Patient Tobacco Use Status: Former Tobacco user Tobacco use type: Cigarette alcohol intake: former Alcohol intake frequency: does not drink Coding Level of Care Code Est Patient Level 1 Diagnoses Current use of anticoagulant therapy Z79.01 Time Spent (min) 15 Assessment & Plan Assessment & Plan (1) Current use of anticoagulant therapy: Comment: warfarin-Brittanieyun Margarette- need to confirm ok to stop 5 days prior to colonoscopy-unable to send note through expanse Patient aware this must be confirmed, there were no major barriers to understanding identified Code(s): Z79.01 - intermediate (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
== END 2023-07-16 13:21 | disposition home or self-care (01) ==
LOC: HO.ACS 13:03
PROVIDERS: PCP Internal Medicine; Visit Provider Internal Medicine
DX: Z79.01 Long term (current) use of anticoagulants (principal)

== ENCOUNTER → 2023-07-16 13:03 | Outpatient (BNVA) | payer OTHER, SELFPAY | PROVIDERS: PCP Internal Medicine; Visit Provider Internal Medicine | DX: I48.0 Paroxysmal atrial fibrillation (principal); Z79.01 Long term (current) use of anticoagulants; Z51.81 Encounter for therapeutic drug level monitoring | CPT/HCPCS: 85610; 99211 ==

== ENCOUNTER 2023-07-23 13:30 | Outpatient (AMB) | payer OTHER, SELFPAY ==
[2023-07-23 13:35] LABS: Prothrombin Time Whole Bld POC 24.7 sec (11.1-13.5); ~PT, ~INR - Anti Coag Clinic 2.1 (0.9-1.1)
--- NOTE | 2023-07-23 13:36 | MHC.OFFVISCO ---
Intake Intake Visit Reasons: Anticoagulation Allergies No Known Allergies [No Known Allergies*] Allergy (Verified 07/23/23 13:30) Medication List - Last Reconciled 07/23/23 by Sandie Doran RN amlodipine 5 mg PO DAILY aspirin 81 mg PO DAILY atorvastatin 80 mg PO BEDTIME cholecalciferol (vitamin D3) 25 mcg PO DAILY dorzolamide-timolol 22.3-6.8 mg/mL 22.3 drps ophthalmic (eye) BID ferrous sulfate (FeroSul) 1 tab PO DAILY furosemide 20 mg PO BID lisinopril 40 mg PO DAILY octreotide acetate (Mycapssa) 20 mg PO DAILY terazosin 5 mg PO BEDTIME 90 days travoprost 0.004% 1 drp ophthalmic (eye) BEDTIME warfarin 5 mg See Protocol PO DAILY Nursing Note Amb to ACS feeling well Medications and supplements reviewed No changes in health, diet, medications, or supplements Denies any unusual signs and symptoms of bruising, bleeding Denies any new Chest pain, SOB, or clotting INR: 2.1 now in therapeutic range, sts he ate more greens Nutritional guidance given: balance greens and reds in diet Dose: continue usual dosing; 5mg x 3 days 2.5mg x 4 days F/U INR: 3 weeks Patient verbalizes understanding of instructions given with accurate read back/ teach back of dosing Anti-Coag Initial Assessment Social Hx Patient Tobacco Use Status: Former Tobacco user Tobacco use type: Cigarette alcohol intake: former Alcohol intake frequency: does not drink Coding Level of Care Code Est Patient Level 1 Diagnoses Current use of anticoagulant therapy Z79.01 Time Spent (min) 15 Assessment & Plan Assessment & Plan (1) Current use of anticoagulant therapy: Comment: warfarin-Otto Margarette- need to confirm ok to stop 5 days prior to colonoscopy-unable to send note through expanse Patient aware this must be confirmed, there were no major barriers to understanding identified Code(s): Z79.01 - jail (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
== END 2023-07-23 13:42 | disposition home or self-care (01) ==
LOC: HO.ACS 13:30
PROVIDERS: PCP Internal Medicine; Visit Provider Internal Medicine
DX: Z79.01 Long term (current) use of anticoagulants (principal)

== ENCOUNTER → 2023-07-23 13:30 | Outpatient (BNVA) | payer OTHER, SELFPAY | PROVIDERS: PCP Internal Medicine; Visit Provider Internal Medicine | DX: I48.0 Paroxysmal atrial fibrillation (principal); Z79.01 Long term (current) use of anticoagulants; Z51.81 Encounter for therapeutic drug level monitoring | CPT/HCPCS: 85610; 99211 ==

== ENCOUNTER 2023-08-13 13:02 | Outpatient (AMB) | payer OTHER, SELFPAY ==
--- NOTE | 2023-08-13 13:10 | MHC.OFFVISCO ---
Intake Intake Visit Reasons: Anticoagulation Allergies No Known Allergies [No Known Allergies*] Allergy (Verified 08/13/23 13:03) Medication List - Last Reconciled 08/13/23 by Lisa Ruth RN amlodipine 5 mg PO DAILY aspirin 81 mg PO DAILY atorvastatin 80 mg PO BEDTIME cholecalciferol (vitamin D3) 25 mcg PO DAILY dorzolamide-timolol 22.3-6.8 mg/mL 22.3 drps ophthalmic (eye) BID ferrous sulfate (FeroSul) 1 tab PO DAILY furosemide 20 mg PO BID lisinopril 40 mg PO DAILY octreotide acetate (Mycapssa) 20 mg PO DAILY terazosin 5 mg PO BEDTIME 90 days travoprost 0.004% 1 drp ophthalmic (eye) BEDTIME warfarin 5 mg See Protocol PO DAILY Nursing Note INR: 3.3 almostn therapeutic range Medications and supplements reviewed No changes in health, diet, medications, or supplements, Denies any signs and symptoms of bleeding or bruising or clotting. Bleeding, bruising, clotting discussed Nutritional guidance given eat another serving of broccoli and avocado per week Dose: keep same for now - if INR stillelevated then decrease weekly dose 5mmg x 3 days/ 2.5m x 4 days 9 he has been subtherapeutic on this same dose) F/U INR: 3 wk Patient verbalizes understanding of instructions given Anti-Coag Initial Assessment Social Hx Patient Tobacco Use Status: Former Tobacco user Tobacco use type: Cigarette alcohol intake: former Alcohol intake frequency: does not drink Coding Level of Care Code Est Patient Level 1 Diagnoses Current use of anticoagulant therapy Z79.01 Assessment & Plan Assessment & Plan (1) Current use of anticoagulant therapy: Comment: warfarin-Otto Margarette- need to confirm ok to stop 5 days prior to colonoscopy-unable to send note through expanse Patient aware this must be confirmed, there were no major barriers to understanding identified Code(s): Z79.01 - [facility] (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
== END 2023-08-13 13:19 | disposition home or self-care (01) ==
LOC: HO.ACS 13:02
PROVIDERS: PCP Internal Medicine; Visit Provider Internal Medicine
DX: Z79.01 Long term (current) use of anticoagulants (principal)

== ENCOUNTER → 2023-08-13 13:02 | Outpatient (BNVA) | payer OTHER, SELFPAY | PROVIDERS: PCP Internal Medicine; Visit Provider Internal Medicine | DX: I48.0 Paroxysmal atrial fibrillation (principal); Z79.01 Long term (current) use of anticoagulants; Z51.81 Encounter for therapeutic drug level monitoring | CPT/HCPCS: 85610; 99211 ==

== ENCOUNTER 2023-08-25 12:58 | Outpatient (REF) | payer OTHER, SELFPAY | END 2023-08-25 12:59 | disposition home or self-care (01) | LOC: HO.MDS 12:58 | PROVIDERS: Visit Provider Internal Medicine Medical Oncology | DX: D50.8 Other iron deficiency anemias (principal) | CPT/HCPCS: 96365; J1756 ==

== ENCOUNTER 2023-09-01 12:13 | Outpatient (REF) | payer OTHER, SELFPAY | END 2023-09-01 12:14 | disposition home or self-care (01) | LOC: HO.MDS 12:13 | PROVIDERS: Visit Provider Internal Medicine Medical Oncology | DX: D50.8 Other iron deficiency anemias (principal) | CPT/HCPCS: 96365; J1756 ==

== ENCOUNTER 2023-09-03 12:59 | Outpatient (AMB) | payer OTHER, SELFPAY ==
--- NOTE | 2023-09-03 13:17 | MHC.OFFVISCO ---
Intake Intake Visit Reasons: Anticoagulation Allergies No Known Allergies [No Known Allergies*] Allergy (Verified 09/03/23 13:13) Medication List - Last Reconciled 09/03/23 by Lisa Ruth RN amlodipine 5 mg PO DAILY aspirin 81 mg PO DAILY atorvastatin 80 mg PO BEDTIME cholecalciferol (vitamin D3) 25 mcg PO DAILY dorzolamide-timolol 22.3-6.8 mg/mL 22.3 drps ophthalmic (eye) BID ferrous sulfate (FeroSul) 1 tab PO DAILY furosemide 20 mg PO BID lisinopril 40 mg PO DAILY octreotide acetate (Mycapssa) 20 mg PO DAILY terazosin 5 mg PO BEDTIME 90 days travoprost 0.004% 1 drp ophthalmic (eye) BEDTIME warfarin 5 mg See Protocol PO DAILY Nursing Note pt visit delays with on going expanse interfacing problems 5-7 minutes pt had iron infusion 2 days ago, enc to take his iron with vit juice like orange juice or pineapple juice INR: in therapeutic range Medications and supplements reviewed had iron infusion yesterday Denies any signs and symptoms of bleeding or bruising or clotting. Bleeding, bruising, clotting discussed Nutritional guidance given - eat orange and reds today to help raise the INR Dose: 5mg x 4 days this week then reusme ususal dose 5mg x 3 days/ 2.5mg x 4 days F/U INR: 2 weeks Patient verbalizes understanding of instructions given Anti-Coag Initial Assessment Social Hx Patient Tobacco Use Status: Former Tobacco user Tobacco use type: Cigarette alcohol intake: former Alcohol intake frequency: does not drink Coding Level of Care Code Est Patient Level 1 Diagnoses Current use of anticoagulant therapy Z79.01 Assessment & Plan Assessment & Plan (1) Current use of anticoagulant therapy: Comment: warfarin-Otto Margarette- need to confirm ok to stop 5 days prior to colonoscopy-unable to send note through expanse Patient aware this must be confirmed, there were no major barriers to understanding identified Code(s): 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
[2023-09-03 13:24] LABS: Prothrombin Time Whole Bld POC 22.1 sec (11.1-13.5); ~PT, ~INR - Anti Coag Clinic 1.8 (0.9-1.1)
== END 2023-09-03 13:31 | disposition home or self-care (01) ==
LOC: HO.ACS 12:59
PROVIDERS: PCP Internal Medicine; Visit Provider Internal Medicine
DX: Z79.01 Long term (current) use of anticoagulants (principal)

== ENCOUNTER → 2023-09-03 12:59 | Outpatient (BNVA) | payer OTHER, SELFPAY | PROVIDERS: PCP Internal Medicine; Visit Provider Internal Medicine | DX: I48.0 Paroxysmal atrial fibrillation (principal); Z79.01 Long term (current) use of anticoagulants; Z51.81 Encounter for therapeutic drug level monitoring | CPT/HCPCS: 85610; 99211 ==

== ENCOUNTER 2023-09-08 12:49 | Outpatient (REF) | payer OTHER, SELFPAY | END 2023-09-08 12:50 | disposition home or self-care (01) | LOC: HO.MDS 12:49 | PROVIDERS: Visit Provider Internal Medicine Medical Oncology | DX: D50.8 Other iron deficiency anemias (principal) | CPT/HCPCS: 96365; J1756 ==

== ENCOUNTER 2023-09-15 12:53 | Outpatient (REF) | payer OTHER, SELFPAY | END 2023-09-15 12:54 | disposition home or self-care (01) | LOC: HO.MDS 12:53 | PROVIDERS: Visit Provider Internal Medicine Medical Oncology | DX: D50.8 Other iron deficiency anemias (principal) | CPT/HCPCS: 96365; J1756 ==

== ENCOUNTER 2023-09-17 12:57 | Outpatient (AMB) | payer OTHER, SELFPAY ==
--- NOTE | 2023-09-17 13:08 | MHC.OFFVISCO ---
Intake Intake Visit Reasons: Anticoagulation Allergies No Known Allergies [No Known Allergies*] Allergy (Verified 09/17/23 13:05) Medication List - Last Reconciled 09/17/23 by Joyce Garcia RN amlodipine 5 mg PO DAILY aspirin 81 mg PO DAILY atorvastatin 80 mg PO BEDTIME cholecalciferol (vitamin D3) 25 mcg PO DAILY dorzolamide-timolol 22.3-6.8 mg/mL 22.3 drps ophthalmic (eye) BID ferrous sulfate (FeroSul) 1 tab PO DAILY furosemide 20 mg PO BID lisinopril 40 mg PO DAILY octreotide acetate (Mycapssa) 20 mg PO DAILY terazosin 5 mg PO BEDTIME 90 days travoprost 0.004% 1 drp ophthalmic (eye) BEDTIME warfarin 5 mg See Protocol PO DAILY Nursing Note INR 1.8-? out of therapeutic range of 2-3 denies missed dose Medications and supplements reviewed Patient status: pt resumed iron infusions Medications or supplements: iron infusions Diet: same Denies any signs and symptoms of bleeding or clotting or unusual bruising Bleeding, bruising, clotting discussed Nutritional guidance given: no greens for 2 days, eat reds to raise Dose: 5mg today and tomm then cont reg dosing 5mg x 3, 2.5mg x 4 F/U INR Date : 2 weeks?? Patient verbalizing understanding of instructions given. Anti-Coag Initial Assessment Social Hx Patient Tobacco Use Status: Former Tobacco user Tobacco use type: Cigarette alcohol intake: former Alcohol intake frequency: does not drink Coding Level of Care Code Est Patient Level 1 Diagnoses Current use of anticoagulant therapy Z79.01 Assessment & Plan Assessment & Plan (1) Current use of anticoagulant therapy: Comment: warfarin-Otto Margarette- need to confirm ok to stop 5 days prior to colonoscopy-unable to send note through expanse Patient aware this must be confirmed, there were no major barriers to understanding identified Code(s): Z79.01 - assisted (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
[2023-09-17 13:10] LABS: Prothrombin Time Whole Bld POC 22.1 sec (11.1-13.5); ~PT, ~INR - Anti Coag Clinic 1.8 (0.9-1.1)
== END 2023-09-17 13:18 | disposition home or self-care (01) ==
LOC: HO.ACS 12:57
PROVIDERS: PCP Internal Medicine; Visit Provider Internal Medicine
DX: Z79.01 Long term (current) use of anticoagulants (principal)

== ENCOUNTER → 2023-09-17 12:57 | Outpatient (BNVA) | payer OTHER, SELFPAY | PROVIDERS: PCP Internal Medicine; Visit Provider Internal Medicine | DX: I48.0 Paroxysmal atrial fibrillation (principal); Z79.01 Long term (current) use of anticoagulants; Z51.81 Encounter for therapeutic drug level monitoring | CPT/HCPCS: 85610; 99211 ==

== ENCOUNTER 2023-09-22 12:53 | Outpatient (REF) | payer OTHER, SELFPAY ==
[2023-09-22 13:21] LABS: MANUAL DIFF FLAG NO
[2023-09-22 13:22] LABS: Basophils Percent Auto 0.3 % (0-2); Eosinophils Absolute Auto 0.1 X10*3/uL (0.0-0.4); Eosinophils Percent Auto 3.7 % (0-4); Hematocrit 29.4 % (42.0-52.0); Hemoglobin 9.3 g/dl (14.0-18.0); Imm Gran Abs Auto 0.01 X10*3/uL (0.00-0.03); Imm Gran Pct Auto 0.3 % (0.0-0.4); Lymphocytes Absolute Auto 0.7 X10*3/uL (1.2-4.9); Lymphocytes Percent Auto 19.6 % (20-40); Mean Corpuscular HGB Conc 31.6 g/dl (31.0-36.0); Mean Corpuscular Hemoglobin 30.5 pg (27.0-33.0); Mean Corpuscular Volume 96.4 fL (80.0-98.0); Mean Platelet Volume 9.4 fL (9.4-12.4); Monocytes Absolute Auto 0.5 X10*3/uL (0.1-1.2); Monocytes Percent Auto 13.1 % (2-11); Neutrophils Absolute Auto 2.2 x10*3/uL (2.0-8.3); Red Blood Count 3.05 X10*6/uL (4.60-5.80); Red Cell Distribution Width 15.8 % (11.0-16.0); White Blood Count 3.5 X10*3/uL (4.8-10.8)
[2023-09-22 13:23] LABS: Platelet Count 96 X10*3/uL (160-400)
== END 2023-09-22 12:54 | disposition home or self-care (01) ==
LOC: HO.MDS 12:53
PROVIDERS: Visit Provider Internal Medicine Medical Oncology
DX: D50.8 Other iron deficiency anemias (principal)
CPT/HCPCS: 36415; 85025; 96365; J1756

== ENCOUNTER 2023-10-08 13:29 | Outpatient (AMB) | payer OTHER, SELFPAY ==
--- NOTE | 2023-10-08 13:47 | MHC.OFFVISCO ---
Intake Intake Visit Reasons: Anticoagulation Allergies No Known Allergies [No Known Allergies*] Allergy (Verified 10/08/23 13:38) Medication List - Last Reconciled 10/08/23 by Neena Boyce RN amlodipine 5 mg PO DAILY aspirin 81 mg PO DAILY atorvastatin 80 mg PO BEDTIME cholecalciferol (vitamin D3) 25 mcg PO DAILY dorzolamide-timolol 22.3-6.8 mg/mL 22.3 drps ophthalmic (eye) BID ferrous sulfate (FeroSul) 1 tab PO DAILY furosemide 20 mg PO BID lisinopril 40 mg PO DAILY octreotide acetate (Mycapssa) 20 mg PO DAILY terazosin 5 mg PO BEDTIME 90 days travoprost 0.004% 1 drp ophthalmic (eye) BEDTIME warfarin 5 mg See Protocol PO DAILY Nursing Note NO CP,SOB,DIET/MED CHANGES,FALLS OR SX OF BLEEDING. CONTINUE PRESENT DOSE AND FOLLOW-UP IN 3 WEEKS. GOOD UNDERSTANDING OF DOSING INSTR. Anti-Coag Initial Assessment Social Hx Patient Tobacco Use Status: Former Tobacco user Tobacco use type: Cigarette alcohol intake: former Alcohol intake frequency: does not drink Coding Level of Care Code Est Patient Level 1 Diagnoses Current use of anticoagulant therapy Z79.01 Results AMB INR Fingerstick AMB INR Fingerstick 2.3 Last Edit by Neena Boyce RN on 10/08/23 13:44 Assessment & Plan Assessment & Plan (1) Current use of anticoagulant therapy: Comment: warfarin-Otto Margarette- need to confirm ok to stop 5 days prior to colonoscopy-unable to send note through expanse Patient aware this must be confirmed, there were no major barriers to understanding identified Code(s): 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
[2023-10-08 16:41] LABS: ~PT, ~INR - Anti Coag Clinic 2.3 (0.9-1.1)
== END 2023-10-08 13:48 | disposition home or self-care (01) ==
LOC: HO.ACS 13:29
PROVIDERS: PCP Internal Medicine; Visit Provider Internal Medicine
DX: Z79.01 Long term (current) use of anticoagulants (principal)

== ENCOUNTER → 2023-10-08 13:29 | Outpatient (BNVA) | payer OTHER, SELFPAY | PROVIDERS: PCP Internal Medicine; Visit Provider Internal Medicine | DX: I48.0 Paroxysmal atrial fibrillation (principal); Z79.01 Long term (current) use of anticoagulants; Z51.81 Encounter for therapeutic drug level monitoring | CPT/HCPCS: 85610; 99211 ==

== ENCOUNTER 2023-10-12 08:36 | Outpatient (REF) | payer OTHER, SELFPAY ==
[2023-10-12 10:58] LABS: MANUAL DIFF FLAG NO
[2023-10-12 11:08] LABS: Basophils Percent Auto 0.2 % (0-2); Eosinophils Absolute Auto 0.2 X10*3/uL (0.0-0.4); Eosinophils Percent Auto 4.4 % (0-4); Hematocrit 31.9 % (42.0-52.0); Hemoglobin 10.1 g/dl (14.0-18.0); Imm Gran Abs Auto 0.01 X10*3/uL (0.00-0.03); Imm Gran Pct Auto 0.2 % (0.0-0.4); Lymphocytes Absolute Auto 0.8 X10*3/uL (1.2-4.9); Lymphocytes Percent Auto 19.2 % (20-40); Mean Corpuscular HGB Conc 31.7 g/dl (31.0-36.0); Mean Corpuscular Hemoglobin 30.2 pg (27.0-33.0); Mean Corpuscular Volume 95.5 fL (80.0-98.0); Monocytes Absolute Auto 0.4 X10*3/uL (0.1-1.2); Monocytes Percent Auto 10.6 % (2-11); Neutrophils Absolute Auto 2.7 x10*3/uL (2.0-8.3); Neutrophils Percent Auto 65.4 % (45-73); Platelet Count 179 X10*3/uL (160-400); Red Blood Count 3.34 X10*6/uL (4.60-5.80); White Blood Count 4.1 X10*3/uL (4.8-10.8)
[2023-10-12 12:36] LABS: Alanine Aminotransferase 30 U/L (0-40); Albumin Level 3.9 g/dL (3.5-5.0); Alkaline Phosphatase 128 U/L (39-117); Anion Gap 10 (12-20); Aspartate Amino Transferase 25 U/L (5-37); Bilirubin Direct 0.3 mg/dL (0.0-0.5); Bilirubin Total 0.7 mg/dL (0.0-1.0); Blood Urea Nitrogen 16 mg/dL (9-16); Calcium 8.9 mg/dL (8.4-10.2); Carbon Dioxide 23 mmol/L (22-29); Chloride 112 mmol/L (96-108); Estimated Glomerular Filt Rate 58; Glucose Random 82 mg/dL (60-115); Potassium 4.6 mmol/L (3.3-5.1); Sodium 140 mmol/L (135-145); Total Protein 6.9 g/dL (6.5-8.0)
[2023-10-12 12:39] LABS: Cholesterol 94 mg/dL (<200); HDL Cholesterol 24 mg/dL (>40); LDL Cholesterol Calculated 62 mg/dL (<100); Triglycerides 40 mg/dL (<150)
[2023-10-12 12:58] LABS: Reflex LDLD? No
== END 2023-10-12 08:37 | disposition home or self-care (01) ==
LOC: HO.HHCL 08:36
PROVIDERS: Visit Provider Internal Medicine
DX: D64.9 Anemia, unspecified (principal); E78.2 Mixed hyperlipidemia; I10 Essential (primary) hypertension
CPT/HCPCS: 36415; 80048; 80061; 80076; 85025

== ENCOUNTER 2023-10-13 12:53 | Outpatient (REF) | payer OTHER, SELFPAY | END 2023-10-13 12:54 | disposition home or self-care (01) | LOC: HO.MDS 12:53 | PROVIDERS: Visit Provider Internal Medicine Medical Oncology | DX: D50.8 Other iron deficiency anemias (principal) | CPT/HCPCS: 96365; J1756 ==

== ENCOUNTER 2023-10-18 08:51 | Outpatient (AMB) | payer OTHER, SELFPAY ==
--- NOTE | 2023-10-18 08:57 | MHC.OFFVIS ---
Intake Vital Signs 10/18/23 08:59 Height 5 ft 9 in Weight 174 lb 2.643 oz BMI 25.7 BP 125/60 Blood Pressure Location Lt brachial Position Sitting Pulse 50 Intake Visit Reasons: 8 month follow up Intake Note: Jamie presents in the office as a 8 month follow up. CC: He states that he is not having any concerns today. Information Technology Account Manager Required: Yes Information Technology Account Manager Name: Scottie [id number] Allergies No Known Allergies [No Known Allergies*] Allergy (Verified 10/18/23 09:00) HPI 8 month follow up HPI Details 78 year old Malay-speaking male with hypertension, kidney disease, hyperlipidemia, right carotid artery occlusion, cystitis, BPH, history of colon polyps and on coumadin for a-fib as well as aspirin who I am seeing for follow up of ENRIQUE, Patient Had admission for ENRIQUE and endoscopies incl VCE 03/2021 UA 03/2021---neg for blood Last EGd/colonoscopy: 03/2021--- diverticulosis, hemorrhoids, bx neg for celiac and enteropathy but pos for H pylori Rx with triple therapy VCE: 03/2021-- nml, no active bleeding seen Seeing Dr Wills who is arranging periodic blood transfusions and iron transfusions. Patient has had other endoscopies in past for ENRIQUE without any obvious etiology. He denied overt GI bleeding, no melena or fresh rectal bleeding I did repeat EGD 06/2022- atrophic gastritis noted with intestinal metaplasia, dried flecks of blood but no active bleeding source was seen Most recent HGB: 10/12/23---10 g/dl INTERIM: He has still been receiving Iron replacement by hematology prn holding HGB around 10 g/dl per lab review above, denies any melena or rectal bleeding no nose bleeds no bleeding gums no hematuria no abdo pain no nausea or vomiting no faitgue EXAM: GENERAL: The patient is well developed and nontoxic. VITAL SIGNS:see workflow HEENT: Nonicteric sclerae, PERRLA, EOMI. Oropharynx clear. Moist mucous membranes. Conjunctivae appear well perfused. No thyroid mass. CHEST: Chest wall is nontender. HEART: Regular rate and rhythm with diastolic murmur at left sternal edge LUNGS: Clear to auscultation bilaterally. ABDOMEN: Soft, positive bowel sounds, nontender, no organomegaly.no flank tenderness SKIN: No rash, no excessive bruising, petechiae, or purpura. NEUROLOGIC: Cranial nerves II-XII intact without motor/sensory deficit. Psych--nml A/P Occult obscure GI blood loss, on aspirin and coumadin, prob AVM or mucosal bleeding--no treatable lesion found thus far--PO octreotide was denied by insurance and he does not wish to inject himself PLAN: 1/ Cont with Iron replacement prn, hematology can consider using thalidomide if ongoing anemia 2/ ECHO to check valves given murmur on exam, ?flow murmur or AR PFSH Medical History Atrial fibrillation Dyslipidemia HTN (hypertension) Tubular adenoma Surgical History History of esophagogastroduodenoscopy (EGD) Hx of bilateral cataract extraction Hx of colonoscopy Family History Father Throat cancer Brother Prostate cancer Asthma Sister Hypertension Diabetes Mother Hypertension Social History Household Members: None Housing: Apartment Are you a primary plant care worker to a significant other at home: No Do you presently have visiting nurse or other home services: Yes (every 6 months) Alcohol intake: former Patient Tobacco Use Status: Former Tobacco user Tobacco use type: Cigarette service: No Current occupational status: retired Physical Exam Vital Signs: Last Vital Signs Pulse 50 10/18/23 08:59 BP 125/60 10/18/23 08:59 BMI result Body Mass Index 25.7 Assessment & Plan Assessment & Plan (1) Diastolic murmur: Code(s): I38 - Endocarditis, valve unspecified Plan: A/P Occult obscure GI blood loss, on aspirin and coumadin, prob AVM or mucosal bleeding--no treatable lesion found thus far--PO octreotide was denied by insurance and he does not wish to inject himself PLAN: 1/ Cont with Iron replacement prn, hematology can consider using thalidomide if ongoing anemia 2/ ECHO to check valves given murmur on exam, ?flow murmur or AR (2) Iron deficiency anemia: Comment: Chronic iron deficiency anemia Code(s): D50.9 - Iron deficiency anemia, unspecified Plan: A/P Occult obscure GI blood loss, on aspirin and coumadin, prob AVM or mucosal bleeding--no treatable lesion found thus far--PO octreotide was denied by insurance and he does not wish to inject himself PLAN: 1/ Cont with Iron replacement prn, hematology can consider using thalidomide if ongoing anemia 2/ ECHO to check valves given murmur on exam, ?flow murmur or AR Orders: Orders CA echo transthoracic complete Today I38 - Endocarditis, valve unspecified Coding Level of Care Code Est Pt Level 3 (24167) Diagnoses Diastolic murmur I38 Iron deficiency anemia D50.9
[2023-10-18 08:59] VITALS: BP 125/60; PULSE 50; BMI 25.7
== END 2023-10-18 09:52 | disposition home or self-care (01) ==
PROVIDERS: PCP Internal Medicine; Visit Provider Internal Medicine Gastroenterology
DX: I38 Endocarditis, valve unspecified (principal); D50.9 Iron deficiency anemia, unspecified
CPT/HCPCS: 99213

== ENCOUNTER → 2023-10-18 08:51 | Outpatient (BNVA) | payer OTHER, SELFPAY | PROVIDERS: PCP Internal Medicine; Visit Provider Internal Medicine Gastroenterology | DX: I38 Endocarditis, valve unspecified (principal); D50.9 Iron deficiency anemia, unspecified | CPT/HCPCS: 99212 ==

== ENCOUNTER 2023-10-20 12:46 | Outpatient (REF) | payer OTHER, SELFPAY | END 2023-10-20 12:47 | disposition home or self-care (01) | LOC: HO.MDS 12:46 | PROVIDERS: Visit Provider Internal Medicine Medical Oncology | DX: D50.8 Other iron deficiency anemias (principal) | CPT/HCPCS: 96365; J1756 ==

== ENCOUNTER 2023-10-27 12:48 | Outpatient (REF) | payer OTHER, SELFPAY | END 2023-10-27 12:49 | disposition home or self-care (01) | LOC: HO.MDS 12:48 | PROVIDERS: Visit Provider Internal Medicine Medical Oncology | DX: D50.8 Other iron deficiency anemias (principal) | CPT/HCPCS: 96365; J1756 ==

== ENCOUNTER 2023-10-29 13:02 | Outpatient (AMB) | payer OTHER, SELFPAY ==
--- NOTE | 2023-10-29 13:08 | MHC.OFFVISCO ---
Intake Intake Visit Reasons: Anticoagulation Allergies No Known Allergies [No Known Allergies*] Allergy (Verified 10/29/23 13:04) Medication List - Last Reconciled 10/29/23 by Joyce Garcia RN amlodipine 5 mg PO DAILY aspirin 81 mg PO DAILY atorvastatin 80 mg PO BEDTIME cholecalciferol (vitamin D3) 25 mcg PO DAILY dorzolamide-timolol 22.3-6.8 mg/mL 22.3 drps ophthalmic (eye) BID ferrous sulfate (FeroSul) 1 tab PO DAILY furosemide 20 mg PO BID lisinopril 40 mg PO DAILY octreotide acetate (Mycapssa) 20 mg PO DAILY terazosin 5 mg PO BEDTIME 90 days travoprost 0.004% 1 drp ophthalmic (eye) BEDTIME warfarin 5 mg See Protocol PO DAILY Nursing Note INR: 2.3- in therapeutic range of 2-3 Medications and supplements reviewed- no changes No changes in health, diet, medications, or supplements, Denies any signs and symptoms of bleeding or bruising or clotting. Bleeding, bruising, clotting discussed Nutritional guidance given Dose: 5mg x 3, 2.5mg x 4 F/U INR: 3 weeks Patient verbalizes understanding of instructions given pt states last iron infusion last week Anti-Coag Initial Assessment Social Hx Patient Tobacco Use Status: Former Tobacco user Tobacco use type: Cigarette alcohol intake: former Alcohol intake frequency: does not drink Coding Level of Care Code Est Patient Level 1 Diagnoses Current use of anticoagulant therapy Z79.01 Assessment & Plan Assessment & Plan (1) Current use of anticoagulant therapy: Comment: warfarin-Otto Margarette- need to confirm ok to stop 5 days prior to colonoscopy-unable to send note through expanse Patient aware this must be confirmed, there were no major barriers to understanding identified Code(s): 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
[2023-10-29 13:09] LABS: Prothrombin Time Whole Bld POC 24.9 sec (11.1-13.5); ~PT, ~INR - Anti Coag Clinic 2.1 (0.9-1.1)
== END 2023-10-29 13:13 | disposition home or self-care (01) ==
LOC: HO.ACS 13:02
PROVIDERS: PCP Internal Medicine; Visit Provider Internal Medicine
DX: Z79.01 Long term (current) use of anticoagulants (principal)

== ENCOUNTER → 2023-10-29 13:02 | Outpatient (BNVA) | payer OTHER, SELFPAY | PROVIDERS: PCP Internal Medicine; Visit Provider Internal Medicine | DX: I48.0 Paroxysmal atrial fibrillation (principal); Z79.01 Long term (current) use of anticoagulants; Z51.81 Encounter for therapeutic drug level monitoring | CPT/HCPCS: 85610; 99211 ==

== ENCOUNTER → 2023-11-17 07:43 | Outpatient (REF) | payer OTHER, SELFPAY ==
--- NOTE | 2023-11-17 07:47 | CA_ITS ---
Transthoracic Echocardiogram Patient (Last, First, Middle): Jamie Carpio, Gender: Male Date of : 1945 Age: 78 Procedure Date: 11/17/2023 Procedure Type: Transthoracic Echocardiogram Location: OP Height: 175.26 cm Weight: 78.93 kg BSA: 1.95 m2 Heart Rate: 54 bpm BP: 126 / 62 mmHg Rehabilitation Services Counselor: SHANTANU Referring MD: Lachelle Rosales MD Endoscopy Nurse: Angel Dyer MD Symptoms: I38 - Endocarditis, valve unspecified Study Quality: Adequate ECG Rhythm: Atrial Fibrillation Conclusions: - 1. Low normal LV ejection fraction of 50-55% 2. Severe biatrial enlargement 3. Mild aortic regurgitation 4. Moderate tricuspid regurgitation with upper limits of normal RV systolic pressure and mildly elevated right atrial pressures 5. Mildly dilated ascending aorta at 3.9 cm 6. No gross pericardial effusion Findings Left Ventricle Normal left ventricular cavity size. There is normal left ventricular wall thickness. The left ventricular systolic function is low normal. The visually estimated ejection fraction is between 50-55%. Diastolic function is indeterminate on the basis of available data. Right Ventricle Normal right ventricular cavity size and systolic function. Atria Severe biatrial enlargement. There is no evidence of interatrial shunt. Aortic Valve The aortic valve structure and function is likely normal. There is no aortic valve stenosis. There is mild aortic valve regurgitation. Mitral Valve Normal mitral valve structure and function. There is trace mitral valve regurgitation. There is no mitral valve stenosis. Pulmonic Valve The pulmonic valve is likely normal. Tricuspid Valve Likely normal tricuspid valve structure and function. There is moderate tricuspid valve regurgitation. Mildly elevated right atrial pressure. There is no evidence of pulmonary hypertension. Great Vessels The pulmonary artery was not well visualized. There is mild dilatation of the ascending aorta. Venous The inferior vena cava is mildly dilated and collapses less than 50% with inspiration. Pericardium/Pleural There is no evidence of pericardial effusion. Measurements 2D Linear Measurements IVSd: 1.05 0.6-0.9/0.6-1.0 cm LVIDd: 5.25 3.9-5.3/4.2-5.9 cm LVIDd Index: 2.69 2.4-3.2/2.2-3.1 cm/m2 LVIDs: 3.45 2.0-3.6 cm LVPWd: 0.90 0.7-1.1 cm LA Diam: 4.80 2.7-3.8/3.0-4.0 cm LAIDs Index: 2.46 1.5-2.3 cm/m2 LV Mass: 237.04 67-162/88-224 g LV Mass Index: 121.56 43-95/49-115 g/m2 LVOT Diam: 2.20 3.0+(-)1.3 cm 2D Systolic Function EF 4C: 54.10 >55% EF 2C: 49.50 >55% EF BiP: 52.50 >55% Mitral Valve MV Pk E: 1.37 MV Decel Time: 168.00 E'Lateral: 12.40 E'Medial: 6.23 E/E' Med: 22.00 E/E' Lat: 11.00 PHT: 49.00 MVA PHT: 4.49 Decel Kimball: 8.18 Aortic Valve AoV Pk Jaun: 1.13 AoV Pk Grad: 5.00 JOSEFINA: 2.70 AI Pk Jaun: 3.57 AI Kimball: 1.53 LVOT LVOT Pk Jaun: 0.80 LVOT Mn Jaun: 0.55 LVOT VTI: 0.21 LVOT Pk Grad: 3.00 LVOT Mn Grad: 1.00 LVOT Diam: 2.20 LVOT Area: 3.80 Diastolic Function MV Pk E: 1.37 E'Medial: 6.23 E/E' Med: 22.00 E' Laterial: 12.40 E/E' Lat: 11.00 Right Ventricle TAPSE (mm): 23.50 TVS' Jaun: 14.30 Tricuspid Valve TR Pk Jaun: 2.71 TR Pk Grad: 29.00 RA Press: 8.00 RVSP: 37.00 Great Vessels Aorta Sinus of Valsalva: 3.60 2.0-3.5 cm Ao Asc: 3.90 2.1-3.4 cm Pulmonary Veins Pulm Vein S/D 0.60 Pulmonary Valve PV Pk Jaun: 1.16 Peak PV Grad: 5.00 WI Pk Jaun: 1.57 Updated in Other Vendor System with Status of Final Angel Dyer MD electronically signed on 11/18/2023 2:05:15 PM with status of Final
== END ==
LOC: HO.CARD 07:43
PROVIDERS: PCP Internal Medicine; Visit Provider Internal Medicine Gastroenterology
DX: I38 Endocarditis, valve unspecified (principal)
CPT/HCPCS: 93306

== ENCOUNTER → 2023-11-17 07:47 | Outpatient (BNV) | payer OTHER, SELFPAY | PROVIDERS: PCP Internal Medicine; Visit Provider Internal Medicine Cardiovascular Disease | DX: I36.1 Nonrheumatic tricuspid (valve) insufficiency (principal) | CPT/HCPCS: 93306 ==

== ENCOUNTER 2023-11-19 13:00 | Outpatient (AMB) | payer OTHER, SELFPAY ==
[2023-11-19 13:08] LABS: Prothrombin Time Whole Bld POC 19.7 sec (11.1-13.5); ~PT, ~INR - Anti Coag Clinic 1.6 (0.9-1.1)
--- NOTE | 2023-11-19 13:13 | MHC.OFFVISCO ---
Intake Intake Visit Reasons: Anticoagulation Allergies No Known Allergies [No Known Allergies*] Allergy (Verified 11/19/23 13:03) Medication List - Last Reconciled 11/19/23 by Lisa Ruth RN amlodipine 5 mg PO DAILY aspirin 81 mg PO DAILY atorvastatin 80 mg PO BEDTIME cholecalciferol (vitamin D3) 25 mcg PO DAILY dorzolamide-timolol 22.3-6.8 mg/mL 22.3 drps ophthalmic (eye) BID ferrous sulfate (FeroSul) 1 tab PO DAILY furosemide 20 mg PO BID lisinopril 40 mg PO DAILY octreotide acetate (Mycapssa) 20 mg PO DAILY terazosin 5 mg PO BEDTIME 90 days travoprost 0.004% 1 drp ophthalmic (eye) BEDTIME warfarin 5 mg See Protocol PO DAILY Nursing Note INR 1.6 out of therapeutic range Medications and supplements reviewed Patient status: HAS BEEN EATING MORE CHOCOLATE THAN USUAL AND HAD A LOT OF CABBAGE SOUP RECENTLY Medications or supplements: NO CHANGE Diet: GOOD Denies any signs and symptoms of bleeding or clotting or unusual bruising Bleeding, bruising, clotting discussed Nutritional guidance given: WHEN EATING MORE GREENS EAT MORE ORANGE AND REDS TO BALANCE AND KEEP INR IN RANGE-PT STATES TODAY HE WILL EAT SWEET POTATOES AND NIRMAL Dose: 5MG X 4 DAYS THIS WEEK THEN RESUME USUAL DOSE 5MG MWF/ 2.5MG X 4 DAYS F/U INR Date : 2 WEEKS?? Patient verbalizing understanding of instructions given. Anti-Coag Initial Assessment Social Hx Patient Tobacco Use Status: Former Tobacco user Tobacco use type: Cigarette alcohol intake: former Alcohol intake frequency: does not drink Coding Level of Care Code Est Patient Level 1 Diagnoses Current use of anticoagulant therapy Z79.01 Results AMB INR Fingerstick AMB INR Fingerstick 1.6 Last Edit by Lisa Ruth RN on 11/19/23 13:12 MANUAL ENTRY Assessment & Plan Assessment & Plan (1) Current use of anticoagulant therapy: Comment: warfarin-Otto Margarette- need to confirm ok to stop 5 days prior to colonoscopy-unable to send note through expanse Patient aware this must be confirmed, there were no major barriers to understanding identified 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
== END 2023-11-19 13:21 | disposition home or self-care (01) ==
LOC: HO.ACS 13:00
PROVIDERS: PCP Internal Medicine; Visit Provider Internal Medicine
DX: Z79.01 Long term (current) use of anticoagulants (principal)

== ENCOUNTER → 2023-11-19 13:00 | Outpatient (BNVA) | payer OTHER, SELFPAY | PROVIDERS: PCP Internal Medicine; Visit Provider Internal Medicine | DX: I48.0 Paroxysmal atrial fibrillation (principal); Z79.01 Long term (current) use of anticoagulants; Z51.81 Encounter for therapeutic drug level monitoring | CPT/HCPCS: 85610; 99211 ==

== ENCOUNTER 2023-12-01 13:00 | Outpatient (AMB) | payer OTHER, SELFPAY ==
[2023-12-01 13:10] LABS: Prothrombin Time Whole Bld POC 28.6 sec (11.1-13.5); ~PT, ~INR - Anti Coag Clinic 2.4 (0.9-1.1)
--- NOTE | 2023-12-01 13:12 | MHC.OFFVISCO ---
Intake Intake Visit Reasons: Anticoagulation Allergies No Known Allergies [No Known Allergies*] Allergy (Verified 12/01/23 13:10) Medication List - Last Reconciled 12/01/23 by Neena Boyce RN amlodipine 5 mg PO DAILY aspirin 81 mg PO DAILY atorvastatin 80 mg PO BEDTIME cholecalciferol (vitamin D3) 25 mcg PO DAILY dorzolamide-timolol 22.3-6.8 mg/mL 22.3 drps ophthalmic (eye) BID ferrous sulfate (FeroSul) 1 tab PO DAILY furosemide 20 mg PO BID lisinopril 40 mg PO DAILY octreotide acetate (Mycapssa) 20 mg PO DAILY terazosin 5 mg PO BEDTIME 90 days travoprost 0.004% 1 drp ophthalmic (eye) BEDTIME warfarin 5 mg See Protocol PO DAILY Nursing Note NO CP,SOB,DIET/MED CHANGES,FALLS OR SX OF BLEEDING. CONTINUE PRESENT DOSE AND FOLLOW-UP IN 3 WEEKS GOOD UNDERSTANDING OF DOSING INSTR. Anti-Coag Initial Assessment Social Hx Patient Tobacco Use Status: Former Tobacco user Tobacco use type: Cigarette alcohol intake: former Alcohol intake frequency: does not drink Coding Level of Care Code Est Patient Level 1 Diagnoses Current use of anticoagulant therapy Z79.01 Results AMB INR Fingerstick AMB INR Fingerstick 2.4 Last Edit by Neena Boyce RN on 12/01/23 13:10 Assessment & Plan Assessment & Plan (1) Current use of anticoagulant therapy: Comment: warfarin-Fabiolaun Margarette- need to confirm ok to stop 5 days prior to colonoscopy-unable to send note through expanse Patient aware this must be confirmed, there were no major barriers to understanding identified 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
== END 2023-12-01 13:13 | disposition home or self-care (01) ==
LOC: HO.ACS 13:00
PROVIDERS: PCP Internal Medicine; Visit Provider Internal Medicine
DX: Z79.01 Long term (current) use of anticoagulants (principal)

== ENCOUNTER → 2023-12-01 13:00 | Outpatient (BNVA) | payer OTHER, SELFPAY | PROVIDERS: PCP Internal Medicine; Visit Provider Internal Medicine | DX: I48.0 Paroxysmal atrial fibrillation (principal); Z79.01 Long term (current) use of anticoagulants; Z51.81 Encounter for therapeutic drug level monitoring | CPT/HCPCS: 85610; 99211 ==

== ENCOUNTER 2023-12-20 13:44 | Outpatient (AMB) | payer OTHER, SELFPAY ==
--- NOTE | 2023-12-20 13:52 | A.OFFVIS_ITS ---
Intake Vital Signs 12/20/23 14:13 Height 5 ft 9 in Weight 189 lb 4 oz BMI 27.9 BP 112/60 Blood Pressure Location Lt brachial Position Sitting Pulse 50 Pulse Source Pulse Oximeter Pulse Oximetry (%) 98 Oxygen Delivery Method Room Air Intake Visit Reasons: [id number]-Confirmed Intake Note: Patient presents for KARINA. Cant sleep at night and gasp for air Allergies No Known Allergies [No Known Allergies*] Allergy (Verified 12/01/23 13:10) HPI HPI Comments History of Present Illness Details 78 y/o male patient with medical hx of A fib and HTN presents for new in-person visit for sleep consultation. home service director ID #[id number] utilized for this visit. Pt reports snoring and having difficulty staying sleeping, wakes 4-5 times at night. He has non refreshing sleep with daytime sleepiness. He feels tired during daytime, takes daily nap. Sleep questionnaire: Have you ever been diagnosed with a sleep disorder? No. Have you ever had a sleep study in the past? No. Have you ever been treated for a sleep disorder? No. Do you take medications for a sleep disorder? No. Do you snore? Yes. Do you wake up gasping at night? Yes. Do you have episodes of apneas? No. If yes, are they witnessed? No. Do you have episodes of nocturnal chest pain or dyspnea? Yes. Do you have difficulty initiating sleep? No. Do you have difficulty maintaining sleep? Yes. Do you wake up tired? Yes. Do you have headaches upon awakening? No. Do you wake up with dry mouth or throat? No. Do you have GERD? No. Do you have nocturia? Yes. Do you have nocturnal leg cramps? Yes, sometimes. Do you have symptoms of restless legs? No. Do you act out your dreams? No. Sleep hygiene questionnaire: What is your usual sleep routine? Usual bedtime is at 7-10 pm; Usual wake up time is at early in the morning. Do you take naps? Yes. Is your sleep environment cool, dark, and quiet? Yes. Do you exercise? No. Do you take caffeine or other stimulants? No. Do you use electronics in bed? Yes. What is your work schedule? No. Hypersomnolence questionnaire: Do you have daytime tiredness or fatigue? Yes. Do you easily fall asleep when inactive? Yes. Have you ever had episodes of sudden weakness? No. Have you ever had episodes of sudden weakness associated with strong emotions? No. PFSH Medical History Atrial fibrillation Dyslipidemia HTN (hypertension) Tubular adenoma Surgical History Hx of bilateral cataract extraction Hx of colonoscopy History of esophagogastroduodenoscopy (EGD) Family History Father Throat cancer Brother Prostate cancer Asthma Sister Hypertension Diabetes Mother Hypertension Social History Household Members: None Housing: Apartment Are you a primary patient care assistant to a significant other at home: No Do you presently have visiting nurse or other home services: Yes (every 6 months) Alcohol intake: former Patient Tobacco Use Status: Former Tobacco user Tobacco use type: Cigarette service: No Current occupational status: retired Review of Systems Const All systems reviewed & are unremarkable except as noted in HPI and below Physical Exam Vital Signs: Last Vital Signs Pulse 50 12/20/23 14:13 BP 112/60 12/20/23 14:13 Pulse Ox 98 12/20/23 14:13 Oxygen Delivery Method Room Air 12/20/23 14:13 BMI result Body Mass Index 27.9 Const General: cooperative and tired appearing Nutritional Appearance: overweight Orientation/consciousness: patient oriented x3 Limitations: language barrier Neck Neck: Yes full ROM and Yes supple Resp Effort & Inspection: normal respiratory effort and able to speak in complete sentences Neuro General: patient oriented x3 and moves all extremities Cranial nerves: Yes CN's II-XII intact bilaterally Cognition (Neuro): normal cognition Motor exam (neuro): 5/5 motor strength present throughout Psych Appearance: grossly normal Mental Status: mental status grossly normal Speech and movement: Normal speech and movement present Affect: normal affect Attitude: cooperative Assessment & Plan Assessment & Plan (1) Snoring: Code(s): R06.83 - Snoring (2) Daytime sleepiness: Code(s): R40.0 - Somnolence Plan Pt is advised to undergo in lab sleep study to assess for sleep apnea. Will f/u with pt after study to discuss results and appropriate treatment options. Sleep hygiene education provided, increase physical activities, limit electronic use before bedtime. Pt to call with any worsening concerns or questions. 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
[2023-12-20 14:13] VITALS: BP 112/60; PULSE 50; O2SAT 98; BMI 27.9
== END 2023-12-20 14:40 | disposition home or self-care (01) ==
PROVIDERS: PCP Internal Medicine; Visit Provider Nurse Practitioner Family
DX: R06.83 Snoring (principal); R40.0 Somnolence
CPT/HCPCS: 99203

== ENCOUNTER → 2023-12-20 13:44 | Outpatient (BNVA) | payer OTHER, SELFPAY | PROVIDERS: PCP Internal Medicine; Visit Provider Nurse Practitioner Family | DX: R06.83 Snoring (principal); R40.0 Somnolence | CPT/HCPCS: 99202 ==

== ENCOUNTER 2023-12-22 12:58 | Outpatient (AMB) | payer OTHER, SELFPAY ==
[2023-12-22 13:16] LABS: Prothrombin Time Whole Bld POC 27.2 sec (11.1-13.5); ~PT, ~INR - Anti Coag Clinic 2.3 (0.9-1.1)
--- NOTE | 2023-12-22 13:22 | MHC.OFFVISCO ---
Intake Intake Visit Reasons: Anticoagulation Allergies No Known Allergies [No Known Allergies*] Allergy (Verified 12/22/23 13:11) Nursing Note INR: 2.3 in therapeutic rangeof 2-3 Medications and supplements reviewed No changes in health, diet, medications, or supplements, Denies any signs and symptoms of bleeding or bruising or clotting. Bleeding, bruising, clotting discussed Nutritional guidance given Dose: continue same doseof 5mg X3 days and 2.5mg X4 days F/U INR: 3 weeks Patient verbalizes understanding of instructions given Anti-Coag Initial Assessment Social Hx Patient Tobacco Use Status: Former Tobacco user Tobacco use type: Cigarette alcohol intake: former Alcohol intake frequency: does not drink Coding Level of Care Code Est Patient Level 1 Diagnoses Current use of anticoagulant therapy Z79.01 Assessment & Plan Assessment & Plan (1) Current use of anticoagulant therapy: Comment: warfarin-Otto Pfeiffer- need to confirm ok to stop 5 days prior to colonoscopy-unable to send note through expanse Patient aware this must be confirmed, there were no major barriers to understanding identified Code(s): 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
== END 2023-12-22 13:27 | disposition home or self-care (01) ==
LOC: HO.ACS 12:58
PROVIDERS: PCP Internal Medicine; Visit Provider Internal Medicine
DX: Z79.01 Long term (current) use of anticoagulants (principal)

== ENCOUNTER → 2023-12-22 12:58 | Outpatient (BNVA) | payer OTHER, SELFPAY | PROVIDERS: PCP Internal Medicine; Visit Provider Internal Medicine | DX: I48.0 Paroxysmal atrial fibrillation (principal); Z79.01 Long term (current) use of anticoagulants; Z51.81 Encounter for therapeutic drug level monitoring | CPT/HCPCS: 85610; 99211 ==

== ENCOUNTER 2024-01-12 13:02 | Outpatient (AMB) | payer OTHER, SELFPAY ==
--- NOTE | 2024-01-12 13:15 | MHC.OFFVISCO ---
Intake Intake Visit Reasons: Anticoagulation Allergies No Known Allergies [No Known Allergies*] Allergy (Verified 01/12/24 13:07) Medication List - Last Reconciled 01/12/24 by Neena Boyce RN amlodipine 5 mg PO DAILY aspirin 81 mg PO DAILY atorvastatin 80 mg PO BEDTIME cholecalciferol (vitamin D3) 25 mcg PO DAILY dorzolamide-timolol 22.3-6.8 mg/mL 22.3 drps ophthalmic (eye) BID ferrous sulfate (FeroSul) 1 tab PO DAILY furosemide 20 mg PO BID lisinopril 40 mg PO DAILY octreotide acetate (Mycapssa) 20 mg PO DAILY terazosin 5 mg PO BEDTIME 90 days travoprost 0.004% 1 drp ophthalmic (eye) BEDTIME warfarin 5 mg See Protocol PO DAILY Nursing Note NO CP,SOB,DIET/MED CHANNGES,FALLS OR SX OF BLEEDING. CONTINUE PRESENT DOSE AND FOLLOW-UP IN 4 WEEKS. GOOD UNDERSTANDING OF DOSING INSTR. Anti-Coag Initial Assessment Social Hx Patient Tobacco Use Status: Former Tobacco user Tobacco use type: Cigarette alcohol intake: former Alcohol intake frequency: does not drink Coding Level of Care Code Est Patient Level 1 Diagnoses Current use of anticoagulant therapy Z79.01 Results AMB INR Fingerstick AMB INR Fingerstick 3.0 Last Edit by Neena Boyce RN on 01/12/24 13:13 Assessment & Plan Assessment & Plan (1) Current use of anticoagulant therapy: Comment: warfarin-Otto Margarette- need to confirm ok to stop 5 days prior to colonoscopy-unable to send note through expanse Patient aware this must be confirmed, there were no major barriers to understanding identified Code(s): Z79.01 - intermediate (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
[2024-01-12 13:18] LABS: Prothrombin Time Whole Bld POC 35.4 sec (11.1-13.5)
== END 2024-01-12 13:16 | disposition home or self-care (01) ==
LOC: HO.ACS 13:02
PROVIDERS: PCP Internal Medicine; Visit Provider Internal Medicine
DX: Z79.01 Long term (current) use of anticoagulants (principal)

== ENCOUNTER → 2024-01-12 13:02 | Outpatient (BNVA) | payer OTHER, SELFPAY | PROVIDERS: PCP Internal Medicine; Visit Provider Internal Medicine | DX: I48.0 Paroxysmal atrial fibrillation (principal); Z79.01 Long term (current) use of anticoagulants; Z51.81 Encounter for therapeutic drug level monitoring | CPT/HCPCS: 85610; 99211 ==

== ENCOUNTER → 2024-01-19 19:30 | Outpatient (REF) | payer OTHER, SELFPAY | LOC: HO.SL 19:30 | PROVIDERS: PCP Internal Medicine; Visit Provider Nurse Practitioner Family | DX: R40.0 Somnolence (principal); R06.83 Snoring; I07.1 Rheumatic tricuspid insufficiency; I38 Endocarditis, valve unspecified; G47.33 Obstructive sleep apnea (adult) (pediatric) | CPT/HCPCS: 95810 ==

== ENCOUNTER → 2024-01-19 21:13 | Outpatient (BNV) | payer OTHER, SELFPAY | PROVIDERS: PCP Internal Medicine; Visit Provider Psychiatry & Neurology Neurology | DX: G47.33 Obstructive sleep apnea (adult) (pediatric) (principal) | CPT/HCPCS: 95810 ==

== ENCOUNTER 2024-02-09 13:01 | Outpatient (AMB) | payer OTHER, SELFPAY ==
--- NOTE | 2024-02-09 13:08 | MHC.OFFVISCO ---
Intake Intake Visit Reasons: Anticoagulation Allergies No Known Allergies [No Known Allergies*] Allergy (Verified 02/09/24 13:05) Medication List - Last Reconciled 02/09/24 by Joyce Garcia RN amlodipine 5 mg PO DAILY aspirin 81 mg PO DAILY atorvastatin 80 mg PO BEDTIME cholecalciferol (vitamin D3) 25 mcg PO DAILY dorzolamide-timolol 22.3-6.8 mg/mL 22.3 drps ophthalmic (eye) BID ferrous sulfate (FeroSul) 1 tab PO DAILY furosemide 20 mg PO BID lisinopril 40 mg PO DAILY octreotide acetate (Mycapssa) 20 mg PO DAILY terazosin 5 mg PO BEDTIME 90 days travoprost 0.004% 1 drp ophthalmic (eye) BEDTIME warfarin 5 mg See Protocol PO DAILY Nursing Note INR 3.3-?? out of therapeutic range of 2-3 Medications and supplements reviewed Patient status: sister passed in [place] Medications or supplements: no changes Diet: same Denies any signs and symptoms of bleeding or clotting or unusual bruising Bleeding, bruising, clotting discussed Nutritional guidance given: eat greens to lower Dose: 2.5mg today then 5mg x 3, 2.5mg x 4 F/U INR Date : 2 weeks Patient verbalizing understanding of instructions given. Anti-Coag Initial Assessment Social Hx Patient Tobacco Use Status: Former Tobacco user Tobacco use type: Cigarette alcohol intake: former Alcohol intake frequency: does not drink Coding Level of Care Code Est Patient Level 1 Diagnoses Current use of anticoagulant therapy Z79.01 Assessment & Plan Assessment & Plan (1) Current use of anticoagulant therapy: Comment: warfarin-Otto Pfeiffer- need to confirm ok to stop 5 days prior to colonoscopy-unable to send note through expanse Patient aware this must be confirmed, there were no major barriers to understanding identified Code(s): Z79.01 - nursing home (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
[2024-02-09 13:09] LABS: Prothrombin Time Whole Bld POC 39.8 sec (11.1-13.5); ~PT, ~INR - Anti Coag Clinic 3.3 (0.9-1.1)
== END 2024-02-09 14:00 | disposition home or self-care (01) ==
LOC: HO.ACS 13:01
PROVIDERS: PCP Internal Medicine; Visit Provider Internal Medicine
DX: Z79.01 Long term (current) use of anticoagulants (principal)

== ENCOUNTER → 2024-02-09 13:01 | Outpatient (BNVA) | payer OTHER, SELFPAY | PROVIDERS: PCP Internal Medicine; Visit Provider Internal Medicine | DX: I48.19 Other persistent atrial fibrillation (principal); Z51.81 Encounter for therapeutic drug level monitoring; Z79.01 Long term (current) use of anticoagulants | CPT/HCPCS: 85610; 99211 ==

== ENCOUNTER 2024-02-11 16:30 | Emergency (ER) | payer OTHER, SELFPAY ==
[2024-02-11] VITALS (9 sets, daily range): BP systolic 143–171; BP diastolic 53–75; PULSE 47–58; RESP 12–19; TEMP 36.6–37.1; O2SAT 97–100; BMI 25.1
--- NOTE | 2024-02-11 17:05 | ED_ITS ---
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 He has no bloody stools no CP/SOB. She wants 2 UPBRC and DC home. He is traveling to [place] and wants to go home. This is not his first transfusion. MD complaint: need for transfusion Onset (ago): day(s) (1) Radiation: non-radiation Severity: mild Relieving factors: rest Exacerbating factors: other (exertion) Associated symptoms: other (fatigue) Treatments prior to arrival: none Related Data Home Medications ?Medication ?Instructions ?Recorded ?Confirmed aspirin 81 mg tablet,delayed 81 mg PO DAILY 02/19/21 02/11/24 release atorvastatin 80 mg tablet 80 mg PO BEDTIME 02/19/21 02/11/24 cholecalciferol (vitamin D3) 25 25 mcg PO DAILY 02/19/21 02/11/24 mcg (1,000 unit) tablet lisinopril 40 mg tablet 40 mg PO DAILY 02/19/21 02/11/24 travoprost 0.004 % eye drops 1 drp ophthalmic (eye) BEDTIME 02/19/21 02/11/24 dorzolamide 22.3 mg-timolol 6.8 22.3 drp ophthalmic (eye) BID 04/03/21 02/11/24 mg/mL eye drops ferrous sulfate 325 mg (65 mg 1 tab PO DAILY 04/03/21 02/11/24 iron) tablet (FeroSul) amlodipine 5 mg tablet 5 mg PO DAILY 07/15/21 02/11/24 furosemide 20 mg tablet 20 mg PO BID 08/15/21 02/11/24 warfarin 5 mg tablet 5 mg PO DAILY 03/18/22 04/05/24 Previous Rx's ?Medication ?Instructions ?Recorded octreotide acetate 20 mg 20 mg PO DAILY #30 caps 09/11/22 capsule,delayed release (Mycapssa) terazosin 5 mg capsule 5 mg PO BEDTIME 90 days #90 caps 12/08/23 Allergies Allergy/AdvReac Type Severity Reaction Status Date / Time No Known Allergies Allergy Verified 02/11/24 17:09 [No Known Allergies*] Review of Systems 2 Review of Systems: Constitutional : No Fever, No Chills, pos Fatigue ENT/Mouth : No sore throat, No Rhinorrhea Eyes: No Eye Pain, No Swelling, No Redness Cardiovascular : No Chest Pain, No SOB, No Dyspnea on Exertion Respiratory : No Cough, No Sputum Gastrointestinal : No Nausea, No Vomiting, No Diarrhea, No abdominal Pain Genitourinary : No Dysuria, No Urinary Frequency, No Hematuria, Musculoskeletal : No joint pain, No Myalgias, No Joint Swelling Skin : No Skin Lesions, No rash Neuro : No Weakness, No Numbness, No Dizziness, no Headache Psych : No Anxiety/Panic, No Depression All other systems reviewed and are negative [facility] Past Medical History Attestation statement: The following information was validated with the patient. Source: old records reviewed Medical History Atrial fibrillation Tubular adenoma Dyslipidemia HTN (hypertension) Surgical History Hx of bilateral cataract extraction Hx of colonoscopy History of esophagogastroduodenoscopy (EGD) Family History Family History Father Throat cancer Brother Prostate cancer Asthma Sister Hypertension Diabetes Mother Hypertension Social History Social History Household Members: None Housing: Apartment Are you a primary pet care technician to a significant other at home: No Do you presently have visiting nurse or other home services: Yes (every 6 months) Alcohol intake: former Patient Tobacco Use Status: Former Tobacco user Tobacco use type: Cigarette Advance Directives: No Advance Directives Information Provided: No service: No Current occupational status: retired Physical Exam ED Vital Signs: Vital Signs - 24 hr 02/11/24 17:08 02/11/24 18:17 02/11/24 18:39 Temperature 98.8 F 98.1 F 98.1 F Pulse Rate 53 56 50 Respiratory Rate 14 16 16 Blood Pressure 171/61 H 143/53 H 165/58 H Pulse Oximetry 98 97 Oxygen Delivery Method Room Air Room Air 02/11/24 18:57 02/11/24 20:22 02/11/24 21:53 Temperature 98.0 F 97.8 F 97.8 F Pulse Rate 52 48 L 50 Respiratory Rate 16 16 12 Blood Pressure 169/69 H 156/61 H 154/62 H Pulse Oximetry 100 Oxygen Delivery Method Room Air 02/11/24 22:00 02/11/24 22:08 02/11/24 22:24 Temperature 97.8 F 97.8 F 97.8 F Pulse Rate 58 47 L 50 Respiratory Rate 19 18 18 Blood Pressure 158/70 H 158/70 H 171/75 H Pulse Oximetry 100 Oxygen Delivery Method Room Air 02/11/24 22:24 Temperature 97.8 F Pulse Rate 50 Respiratory Rate 18 Blood Pressure 171/75 H Pulse Oximetry Oxygen Delivery Method BMI result Body Mass Index 25.1 Appearance: Alert. Oriented X3. No acute distress. Eyes: Pupils equal, round and reactive to light. ENT: Pharynx normal. Neck: Normal inspection. Neck supple. CVS: Normal heart rate and rhythm. Pulses normal. Respiratory: No respiratory distress. Breath sounds normal. Abdomen: Soft and nontender. Skin: Skin warm and dry. pale skin color. Normal skin turgor. Extremities: No lower extremity edema. No calf ttp Neuro: Oriented X 3. No motor deficit. No sensory deficit. Course Course Course Narrative: blood completed no issues Medications Administered Discontinued Medications Generic Name Dose Route Start Last Admin Trade Name Freq PRN Reason Stop Dose Admin Sodium Chloride 100 mls @ 100 mls/hr 02/11/24 16:56 02/11/24 19:47 Ns IV 02/11/24 17:55 Infused ONCE ONE Infusion Sodium Chloride 100 mls @ 100 mls/hr 02/11/24 16:59 02/11/24 22:16 Ns IV 02/11/24 17:58 100 mls/hr ONCE ONE Administration Sodium Chloride 100 mls @ 100 mls/hr 02/11/24 16:59 02/11/24 22:16 Ns IV 02/11/24 17:58 100 mls/hr ONCE ONE Administration Medical Decision Making Medical Decision Making [facility] Narrative: 78 yo male with PMH of BPH, Fe deficiency anemia for which he has seen Vladislav - has had colo and endoscopy felt to be a slow GI leak, HTN, HLD, gastritis, afib on coumadin here with c/o need for blood transfusion chronic anemia due to likel slow GI bleed - sent by hematology. Other than mild fatigue no signs of ACS. Will obtain repeat labs, transfuse 2 units and DC home. He has good follow up and planned trip to [place]. Dr. Wills can follow up as outpatient. Differential Diagnosis Differential Diagnoses: The differential diagnosis associated with the presentation includes anemia, chronic GI bleed Admission/Observation Consideration of admission/observation: Escalation of care including admission/observation considered defers and relatively asymptomatic could have been managed in short stay given chronicity of his issue Lab Data [facility] Lab Attestation statement: I reviewed the patient's lab results. 02/11/24 17:13 02/11/24 17:13 Labs: Lab Results 02/11/24 Range/Units 17:13 WBC 4.4 L (4.8-10.8) X10*3/uL RBC 2.47 L (4.60-5.80) X10*6/uL Hgb 7.6 L (14.0-18.0) g/dl Hct 24.4 L (42.0-52.0) % MCV 98.8 H (80.0-98.0) fL MCH 30.8 (27.0-33.0) pg MCHC 31.1 (31.0-36.0) g/dl RDW 15.5 (11.0-16.0) % Plt Count 126 L (160-400) X10*3/uL MPV 10.0 (9.4-12.4) fL Immature Gran % (Auto) 0.0 (0.0-0.4) % Neut % (Auto) 67.5 (45-73) % Lymph % (Auto) 16.5 L (20-40) % Barren % (Auto) 11.2 H (2-11) % Eos % (Auto) 4.6 H (0-4) % Baso % (Auto) 0.2 (0-2) % Lymph # (Auto) 0.7 L (1.2-4.9) X10*3/uL Barren # (Auto) 0.5 (0.1-1.2) X10*3/uL Eos # (Auto) 0.2 (0.0-0.4) X10*3/uL Baso # (Auto) 0.0 (0.0-0.2) X10*3/uL Abs Immat Gran (auto) 0.00 (0.00-0.03) X10*3/uL Absolute Neuts (auto) 3.0 (2.0-8.3) x10*3/uL Absolute Nucleated RBC 0.000 (0.0-0.012) X10*3/uL Nucleated RBC % (auto) 0.0 (0.0-0.2) /100WBC PT 52.1 H (11.1-13.3) SEC INR 4.3 H (0.9-1.1) Sodium 141 (135-145) mmol/L Potassium 3.5 (3.3-5.1) mmol/L Chloride 113 H (96-108) mmol/L Carbon Dioxide 22 (22-29) mmol/L Anion Gap 10 L (12-20) BUN 19 H (9-16) mg/dL Creatinine 1.28 (0.5-1.4) mg/dL Estim Creat Clear Calc 51.4 Estimated GFR 54 Random Glucose 99 (60-115) mg/dL Calcium 8.8 (8.4-10.2) mg/dL Blood Type A Positive Antibody Screen NEGATIVE Crossmatch See Detail External Record Review External record reviewed: Inpatient record and Office record Critical Care Time Critical Care Time Critical Care Time: Yes Total Critical Care Time: 45 Attestation: review of records, transfusion of 2 units of blood I attest to this time spent taking care of the patient Discharge Plan Discharge Clinical Impression: Chronic anemia Patient Disposition: Home, Self-Care Instructions: Anemia (ED), Blood Transfusion (DC) Additional Instructions: if possible get cbc rechecked in [place] on wednesday follow up with any rectal bleeding, dizziness, chest pain, shortness of breath or fainting INR 4.3 hold coumadin for the next 24 hours Prescriptions: No Action terazosin 5 mg capsule 5 mg PO BEDTIME 90 Days Qty: 90 1RF ferrous sulfate [FeroSul] 325 mg (65 mg iron) tablet 1 tab PO DAILY dorzolamide-timolol 22.3-6.8 mg/mL Drops 22.3 drp ophthalmic (eye) BID lisinopril 40 mg tablet 40 mg PO DAILY cholecalciferol (vitamin D3) 25 mcg (1,000 unit) tablet 25 mcg PO DAILY travoprost 0.004 % drops 1 drp ophthalmic (eye) BEDTIME aspirin 81 mg tablet,delayed release (DR/EC) 81 mg PO DAILY atorvastatin 80 mg tablet 80 mg PO BEDTIME furosemide 20 mg tablet 20 mg PO BID amlodipine 5 mg tablet 5 mg PO DAILY Mycapssa 20 mg capsule,delayed release(DR/EC) 20 mg PO DAILY Qty: 30 0RF Hold Instructions: rejected by insurance Rx Instructions: must administer 1 hour before or 2 hours after food or meals; warfarin 5 mg tablet 5 mg PO DAILY Protocol: Dose Management Condition: Wednesday (Week One) Dose/Route: 2.5 mg Instruction: 0.5 x 5 mg tablets Condition: Wednesday Dose/Route: 5 mg Instruction: 1 x 5 mg tablet Condition: Wednesday Dose/Route: 2.5 mg Instruction: 0.5 x 5 mg tablets Condition: Wednesday Dose/Route: 2.5 mg Instruction: 0.5 x 5 mg tablets Condition: Dose/Route: 2.5 mg Instruction: 0.5 x 5 mg tablets Condition: Wednesday Dose/Route: 0 mg Instruction: 0 tablets Condition: Wednesday Dose/Route: 2.5 mg Instruction: 0.5 x 5 mg tablets Condition: Wednesday (Week Two) Dose/Route: 2.5 mg Instruction: 0.5 x 5 mg tablets Condition: Wednesday Dose/Route: 5 mg Instruction: 1 x 5 mg tablet Condition: Wednesday Dose/Route: 2.5 mg Instruction: 0.5 x 5 mg tablets Condition: Wednesday Dose/Route: 2.5 mg Instruction: 0.5 x 5 mg tablets Condition: Dose/Route: 5 mg Instruction: 1 x 5 mg tablet Condition: Wednesday Dose/Route: 2.5 mg Instruction: 0.5 x 5 mg tablets Condition: Wednesday Dose/Route: 2.5 mg Instruction: 0.5 x 5 mg tablets Protocol Text: Adjustment Start Date: Wednesday02/11/24 INR Value: 4.3 INR Date: 02/11/24 Recheck Date: 02/18/24 Additional Instructions: REVIEW FOOD LIST WEEKLY, EAT GREENS WEEKLY - GET LAB DRAWN IN [place] IN 1 WEEK Rx Instructions: 5MG X3, 2.5MG X4 Print Language: Vietnamese
[2024-02-11 17:20] LABS: Basophils Percent Auto 0.2 % (0-2); Eosinophils Absolute Auto 0.2 X10*3/uL (0.0-0.4); Eosinophils Percent Auto 4.6 % (0-4); Hematocrit 24.4 % (42.0-52.0); Hemoglobin 7.6 g/dl (14.0-18.0); Lymphocytes Absolute Auto 0.7 X10*3/uL (1.2-4.9); Lymphocytes Percent Auto 16.5 % (20-40); MANUAL DIFF FLAG NO; Mean Corpuscular HGB Conc 31.1 g/dl (31.0-36.0); Mean Corpuscular Hemoglobin 30.8 pg (27.0-33.0); Mean Corpuscular Volume 98.8 fL (80.0-98.0); Monocytes Absolute Auto 0.5 X10*3/uL (0.1-1.2); Monocytes Percent Auto 11.2 % (2-11); Neutrophils Percent Auto 67.5 % (45-73); Platelet Count 126 X10*3/uL (160-400); Red Blood Count 2.47 X10*6/uL (4.60-5.80); Red Cell Distribution Width 15.5 % (11.0-16.0); White Blood Count 4.4 X10*3/uL (4.8-10.8)
[2024-02-11 17:36] LABS: Anion Gap 10 (12-20); Blood Urea Nitrogen 19 mg/dL (9-16); Calcium 8.8 mg/dL (8.4-10.2); Carbon Dioxide 22 mmol/L (22-29); Chloride 113 mmol/L (96-108); Creatinine Clr Calc Pharmacy 51.4; Estimated Glomerular Filt Rate 54; Glucose Random 99 mg/dL (60-115); Potassium 3.5 mmol/L (3.3-5.1); Sodium 141 mmol/L (135-145)
[2024-02-11 17:38] LABS: INTERNATIONAL NORM RATIO 4.3 (0.9-1.1); Prothrombin Time 52.1 SEC (11.1-13.3)
--- NOTE | 2024-02-11 17:50 | PC.NURSE ---
no complaints at this time, awaiting blood transfusion and watching tv. bilateral 18IV established to patient's ac.
--- NOTE | 2024-02-11 18:50 | PC.NURSE ---
first unit of blood infusing, patient with no obvious signs/symptoms of distress
--- NOTE | 2024-02-11 22:11 | PC.NURSE ---
Pt resting in bed comfortably at this time. second unit of blood started. Pt placed on batch freezer. No complaints at this time.
[2024-02-12 00:22] VITALS: BP 164/65; PULSE 54; RESP 18; TEMP 36.5
[2024-02-12 00:37] VITALS: BP 164/65; PULSE 50; RESP 18; TEMP 36.6
== END 2024-02-12 00:37 | disposition home or self-care (01) ==
PROVIDERS: Emergency Provider Emergency Medicine; PCP Internal Medicine
DX: D50.9 Iron deficiency anemia, unspecified (principal); I10 Essential (primary) hypertension; I48.91 Unspecified atrial fibrillation; Z79.01 Long term (current) use of anticoagulants; Z79.82 Long term (current) use of aspirin; Z79.899 Other long term (current) drug therapy
CPT/HCPCS: 36415; 36430; 80048; 85025; 85610; 86850; 86900; 86901; 86923; 96360; 96361; 99284; 99285; P9016

== ENCOUNTER → 2024-02-18 10:52 | Outpatient (BNVA) | payer OTHER, SELFPAY | PROVIDERS: PCP Internal Medicine; Visit Provider Internal Medicine ==

== ENCOUNTER → 2024-02-25 11:41 | Outpatient (BNVA) | payer OTHER, SELFPAY | PROVIDERS: PCP Internal Medicine; Visit Provider Internal Medicine ==

== ENCOUNTER → 2024-03-10 12:00 | Outpatient (BNVA) | payer OTHER, SELFPAY | PROVIDERS: PCP Internal Medicine; Visit Provider Internal Medicine ==

== ENCOUNTER → 2024-03-24 09:22 | Outpatient (BNVA) | payer OTHER, SELFPAY | PROVIDERS: PCP Internal Medicine; Visit Provider Internal Medicine ==

== ENCOUNTER 2024-04-10 13:27 | Outpatient (AMB) | payer OTHER, SELFPAY ==
--- NOTE | 2024-04-10 14:00 | A.OFFVIS_ITS ---
Vital Signs 04/10/24 14:04 Height 5 ft 9 in Weight 165 lb BMI 24.4 Pulse 57 Pulse Source Pulse Oximeter Pulse Oximetry (%) 97 Oxygen Delivery Method Room Air Intake Visit Reasons: 4 month F/U-CONF Intake Note: Patient presents for 4 month follow up Civil Structural Designer Required: Yes Civil Structural Designer Name: Rupa Candelaria Allergies No Known Allergies [No Known Allergies*] Allergy (Verified 03/10/24 12:01) HPI Comments Details: 79-yr-old male presents for follow-up visit follwoing in-lab PSG. Since the last visit, pt underwent in-lab PSG due to daytime sleepiness, HTN and a-fib. Pt continues to have excessive sleepiness. In-lab PSG results were c/w mild KARINA w/ increased severity in REM. In-lab PSG ,01/19/2024, revealed: AHI: 10/hr; REM AHI: 26/hr; O2 anuel 81% w/ SpO2 < 88% x's 3.9 min and average SpO2 95%; Periodic limb movement of sleep (PLMS) index: 0/hr; PLMS arousal index: 0/hr. PFSH Medical History Atrial fibrillation Tubular adenoma Dyslipidemia HTN (hypertension) Surgical History Hx of bilateral cataract extraction Hx of colonoscopy History of esophagogastroduodenoscopy (EGD) Family History Father Throat cancer Brother Prostate cancer Asthma Sister Hypertension Diabetes Mother Hypertension Social History Household Members: None Housing: Apartment Are you a primary health care coordinator to a significant other at home: No Do you presently have visiting nurse or other home services: Yes (every 6 months) Alcohol intake: former Patient Tobacco Use Status: Former Tobacco user Tobacco use type: Cigarette service: No Current occupational status: retired Review of Systems Const All systems reviewed & are unremarkable except as noted in HPI and below Physical Exam Vital Signs: Last Vital Signs Pulse 57 04/10/24 14:04 Pulse Ox 97 04/10/24 14:04 Oxygen Delivery Method Room Air 04/10/24 14:04 BMI result Body Mass Index 24.4 Const General: no acute distress Orientation/consciousness: patient oriented x3 Resp Effort & Inspection: able to speak in complete sentences Neuro General: patient oriented x3 Psych Mental Status: mental status grossly normal Speech and movement: Clear speech present Attitude: cooperative Results Reviewed Results Reviewed: In-lab PSG report- see HPI. Assessment & Plan Assessment & Plan (1) Mild obstructive sleep apnea: Code(s): G47.33 - Obstructive sleep apnea (adult) (pediatric) Category: Medical (2) Daytime sleepiness: Code(s): R40.0 - Somnolence Category: Medical (3) Snoring: Code(s): R06.83 - Snoring Category: Medical (4) HTN (hypertension): Code(s): I10 - Essential (primary) hypertension Category: Medical Plan Reviewed In-lab PSG results- c/w mild KARINA. As pt has h/o sleepiness, HTN, a-fib- advised to start APAP. Pt advised to start APAP 5-20 cmH2O nightly whenever sleeping, but at minumum at least 4 hrs per night. Clean and change PAP supplies routinely. PAP order written and will be sent to local resp company. Pt to contact us or his resp supplier w/ any questions or concerns. f/u in 6 months or sooner prn. Coding Level of Care Code Est Pt Level 4 (06864) Diagnoses Mild obstructive sleep apnea G47.33 Daytime sleepiness R40.0 Snoring R06.83 HTN (hypertension) I10
[2024-04-10 14:04] VITALS: PULSE 57; O2SAT 97; BMI 24.4
== END 2024-04-10 14:30 | disposition home or self-care (01) ==
PROVIDERS: PCP Internal Medicine; Visit Provider Nurse Practitioner Family
DX: G47.33 Obstructive sleep apnea (adult) (pediatric) (principal); R40.0 Somnolence; R06.83 Snoring; I10 Essential (primary) hypertension
CPT/HCPCS: 99214

== ENCOUNTER → 2024-04-10 13:27 | Outpatient (BNVA) | payer OTHER, SELFPAY | PROVIDERS: PCP Internal Medicine; Visit Provider Nurse Practitioner Family | DX: G47.33 Obstructive sleep apnea (adult) (pediatric) (principal); R40.0 Somnolence; R06.83 Snoring; I10 Essential (primary) hypertension | CPT/HCPCS: 99212 ==

== ENCOUNTER 2024-04-11 14:42 | Outpatient (REF) | payer OTHER, SELFPAY ==
--- NOTE | ~2024-04-11 | MM_ITS ---
EXAMINATION: MM DIAGNOSTIC DIGITAL BREAST TOMOSYNTHESIS, BILATERAL US BREAST LIMITED, RIGHT MAMMOGRAPHY: CLINICAL INFORMATION: Right breast tenderness, palpable abnormality x3 months. Gynecomastia. COMPARISON: Mammography: None. TECHNIQUE: Digital breast tomosynthesis is performed in both the craniocaudal and mediolateral oblique views along with computer-aided detection (CAD). Synthesized 2D images are generated from the tomosynthesis. In addition, a right full-field 3-D ML view was also obtained. FINDINGS: There are scattered areas of fibroglandular density (ACR BI-RADS breast composition Category b). There is severe right and moderate left breast gynecomastia. No definite suspicious mass, area of architectural distortion, or suspicious calcifications are seen in either breast. There is a small lymph node in the axillary tail of the left breast. No suspicious skin or axillary findings. ULTRASOUND: CLINICAL INFORMATION: As above. COMPARISON: None TECHNIQUE: Targeted sonographic evaluation was performed using a high frequency linear transducer. Right breast retroareolar region was targeted. Selected archived documentation. FINDINGS: RIGHT BREAST: There is moderate to severe development of retroareolar breast tissue consistent with gynecomastia. There are retroareolar simple cystic foci measuring less than a centimeter, either simple cysts or mildly dilated ducts. There is no abnormal echo within these simple structures. There is good through transmission with no vascular flow. Gynecomastia extends to the 7-8 o'clock axis of the right breast, with a linear focus extending beyond the parenchymal cone. No abnormal shadowing or mass is evident. MM/MM tomosynthesis diagnostic BI IMPRESSION: -There is moderate to severe RIGHT and moderate LEFT male gynecomastia. -There are subcentimeter simple cysts versus small dilated ducts in the retroareolar region of the RIGHT breast. There are no internal echoes. -There are no suspicious features in either breast. -Recommend clinical management and follow-up. OVERALL ASSESSMENT: Mammography: BI-RADS 2 - Benign Findings Ultrasound: BI-RADS 2 - Benign Findings RECOMMENDATION: 1. Patient should be managed based on the clinical impression. Results were provided to the patient at time of visit by the technologist.
== END 2024-04-11 14:43 | disposition home or self-care (01) ==
LOC: HO.MAMMO 14:42
PROVIDERS: PCP Internal Medicine; Visit Provider Internal Medicine
DX: N62 Hypertrophy of breast (principal)
CPT/HCPCS: 76642; 77062; 77066

== ENCOUNTER → 2024-04-11 15:00 | Outpatient (BNV) | payer OTHER, SELFPAY | PROVIDERS: PCP Internal Medicine; Visit Provider Radiology Diagnostic Radiology | DX: N62 Hypertrophy of breast (principal); N63.10 Unspecified lump in the right breast, unspecified quadrant | CPT/HCPCS: 76642; 77066; G0279 ==

== ENCOUNTER 2024-04-12 08:57 | Outpatient (AMB) | payer OTHER, SELFPAY ==
[2024-04-12 09:12] LABS: Prothrombin Time Whole Bld POC 36.1 sec (11.1-13.5)
--- NOTE | 2024-04-12 09:13 | MHC.OFFVISCO ---
Intake Intake Visit Reasons: Anticoagulation Allergies No Known Allergies [No Known Allergies*] Allergy (Verified 04/12/24 09:07) Medication List - Last Reconciled 04/12/24 by Neena Boyce RN amlodipine 5 mg PO DAILY aspirin 81 mg PO DAILY atorvastatin 80 mg PO BEDTIME cholecalciferol (vitamin D3) 25 mcg PO DAILY dorzolamide-timolol 22.3-6.8 mg/mL 22.3 drps ophthalmic (eye) BID ferrous sulfate (FeroSul) 1 tab PO DAILY furosemide 20 mg PO BID lisinopril 40 mg PO DAILY octreotide acetate (Mycapssa) 20 mg PO DAILY terazosin 5 mg PO BEDTIME 90 days travoprost 0.004% 1 drp ophthalmic (eye) BEDTIME warfarin 5 mg See Protocol PO DAILY Nursing Note NO CP,SOB,DIET/MED CHANGES,FALLS OR SX OIF BLEEDING. CONTINUE PRESENT DOSE AND FOLLOW-UP IN 3 WEEKS. GOOD UNDERSTANDING OF DOSING INSTR. Anti-Coag Initial Assessment Social Hx Patient Tobacco Use Status: Former Tobacco user Tobacco use type: Cigarette alcohol intake: former Alcohol intake frequency: does not drink Coding Level of Care Code Est Patient Level 1 Diagnoses Current use of anticoagulant therapy Z79.01 Results AMB INR Fingerstick AMB INR Fingerstick 3.0 Last Edit by Neena Boyce RN on 04/12/24 09:13 Assessment & Plan Assessment & Plan (1) Current use of anticoagulant therapy: Comment: warfarin-Otto Margarette- need to confirm ok to stop 5 days prior to colonoscopy-unable to send note through expanse Patient aware this must be confirmed, there were no major barriers to understanding identified Code(s): Z79.01 - USP (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
== END 2024-04-12 09:23 | disposition home or self-care (01) ==
LOC: HO.ACS 08:57
PROVIDERS: PCP Internal Medicine; Visit Provider Internal Medicine
DX: Z79.01 Long term (current) use of anticoagulants (principal)

== ENCOUNTER → 2024-04-12 08:57 | Outpatient (BNVA) | payer OTHER, SELFPAY | PROVIDERS: PCP Internal Medicine; Visit Provider Internal Medicine | DX: I48.0 Paroxysmal atrial fibrillation (principal); Z79.01 Long term (current) use of anticoagulants; Z51.81 Encounter for therapeutic drug level monitoring | CPT/HCPCS: 85610; 99211 ==

== ENCOUNTER 2024-05-03 13:00 | Outpatient (AMB) | payer OTHER, SELFPAY ==
--- NOTE | 2024-05-03 13:11 | MHC.OFFVISCO ---
Intake Intake Visit Reasons: Anticoagulation Allergies No Known Allergies [No Known Allergies*] Allergy (Verified 05/03/24 13:08) Medication List - Last Reconciled 05/03/24 by Joyce Garcia RN amlodipine 5 mg PO DAILY aspirin 81 mg PO DAILY atorvastatin 80 mg PO BEDTIME cholecalciferol (vitamin D3) 25 mcg PO DAILY dorzolamide-timolol 22.3-6.8 mg/mL 22.3 drps ophthalmic (eye) BID ferrous sulfate (FeroSul) 1 tab PO DAILY furosemide 20 mg PO BID lisinopril 40 mg PO DAILY octreotide acetate (Mycapssa) 20 mg PO DAILY terazosin 5 mg PO BEDTIME 90 days travoprost 0.004% 1 drp ophthalmic (eye) BEDTIME warfarin 5 mg See Protocol PO DAILY Nursing Note INR: 2.5- in therapeutic range of 2-3 Medications and supplements reviewed- no changes No changes in health, diet, medications, or supplements, Denies any signs and symptoms of bleeding or bruising or clotting. Bleeding, bruising, clotting discussed Nutritional guidance given Dose: 5mg x 2, 2.5mg x 5 F/U INR: pt req 4 weeks Patient verbalizes understanding of instructions given Anti-Coag Initial Assessment Social Hx Patient Tobacco Use Status: Former Tobacco user Tobacco use type: Cigarette alcohol intake: former Alcohol intake frequency: does not drink Coding Level of Care Code Est Patient Level 1 Diagnoses Current use of anticoagulant therapy Z79.01 Results AMB INR Fingerstick AMB INR Fingerstick 2.5 Last Edit by Joyce Garcia RN on 05/03/24 13:13 Assessment & Plan Assessment & Plan (1) Current use of anticoagulant therapy: Comment: warfarin-Fabiolaun Margarette- need to confirm ok to stop 5 days prior to colonoscopy-unable to send note through expanse Patient aware this must be confirmed, there were no major barriers to understanding identified Code(s): Z79.01 - intermediate card tender (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
[2024-05-03 13:13] LABS: Prothrombin Time Whole Bld POC 30.4 sec (11.1-13.5); ~PT, ~INR - Anti Coag Clinic 2.5 (0.9-1.1)
== END 2024-05-03 13:17 | disposition home or self-care (01) ==
LOC: HO.ACS 13:00
PROVIDERS: PCP Internal Medicine; Visit Provider Internal Medicine
DX: Z79.01 Long term (current) use of anticoagulants (principal)

== ENCOUNTER → 2024-05-03 13:00 | Outpatient (BNVA) | payer OTHER, SELFPAY | PROVIDERS: PCP Internal Medicine; Visit Provider Internal Medicine | DX: I48.0 Paroxysmal atrial fibrillation (principal); Z79.01 Long term (current) use of anticoagulants; Z51.81 Encounter for therapeutic drug level monitoring | CPT/HCPCS: 85610; 99211 ==

== ENCOUNTER 2024-05-12 09:33 | Outpatient (AMB) | payer OTHER, SELFPAY ==
[2024-05-12 09:36] VITALS: BP 134/42; PULSE 41; O2SAT 99; BMI 24.9
--- NOTE | 2024-05-12 09:36 | A.OFFVIS_ITS ---
Vital Signs 05/12/24 09:36 Height 5 ft 9 in Weight 168 lb 13.985 oz BMI 24.9 BP 134/42 L Blood Pressure Location Lt brachial Position Sitting Pulse 41 L Pulse Source Pulse Oximeter Pulse Oximetry (%) 99 Oxygen Delivery Method Room Air Intake Visit Reasons: 6 month follow up Intake Note: Jamie presents in the office as a 6 month follow up. CC: He states that he is not having any concerns today and is doing well. 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 Accompanied by: Self / Same As Patient Allergies No Known Allergies [No Known Allergies*] Allergy (Verified 05/12/24 09:39) HPI HPI 6 month follow up: Details: 78 year old Divehi-speaking male with hypertension, kidney disease, hyperlipidemia, right carotid artery occlusion, cystitis, BPH, history of colon polyps and on coumadin for a-fib as well as aspirin who I am seeing for follow up of ENRIQUE, Patient Had admission for ENRIQUE and endoscopies incl VCE 03/2021 UA 03/2021---neg for blood Last EGd/colonoscopy: 03/2021--- diverticulosis, hemorrhoids, bx neg for celiac and enteropathy but pos for H pylori Rx with triple therapy VCE: 03/2021-- nml, no active bleeding seen Seeing Dr Wills who is arranging periodic blood transfusions and iron transfus ions. Patient has had other endoscopies in past for ENRIQUE without any obvious etiology. 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 VITAL SIGNS:see workflow HEENT: Nonicteric sclerae, PERRLA, EOMI. Oropharynx clear. Moist mucous membranes. Conjunctivae appear well perfused. No thyroid mass. CHEST: Chest wall is nontender. HEART: Regular rate and rhythm with diastolic murmur at left sternal edge LUNGS: Clear to auscultation bilaterally. ABDOMEN: Soft, positive bowel sounds, nontender, no organomegaly.no flank tenderness SKIN: No rash, no excessive bruising, petechiae, or purpura. NEUROLOGIC: Cranial nerves II-XII intact without motor/sensory deficit. Psych--nml A/P Occult obscure GI blood loss, on aspirin and coumadin, prob AVM or mucosal bleeding--no treatable lesion found thus far--PO octreotide was denied by insurance and he does not wish to inject himself PLAN: 1/ Cont with Iron replacement prn, awaiting bone marrow 2/ F/u with [facility] with his ECHO findings, he has CPAP but having issues with use PFSH Medical History Atrial fibrillation Tubular adenoma Dyslipidemia HTN (hypertension) Surgical History Hx of bilateral cataract extraction Hx of colonoscopy History of esophagogastroduodenoscopy (EGD) Family History Father Throat cancer Brother Prostate cancer Asthma Sister Hypertension Diabetes Mother Hypertension Social History Household Members: None Housing: Apartment Are you a primary primary care sales representative to a significant other at home: No Do you presently have visiting nurse or other home services: Yes (every 6 months) Alcohol intake: former Patient Tobacco Use Status: Former Tobacco user Tobacco use type: Cigarette service: No Current occupational status: retired Physical Exam Vital Signs: Last Vital Signs Pulse 41 L 05/12/24 09:36 BP 134/42 L 05/12/24 09:36 Pulse Ox 99 05/12/24 09:36 Oxygen Delivery Method Room Air 05/12/24 09:36 BMI result Body Mass Index 24.9 Assessment & Plan Assessment & Plan (1) Anemia: Code(s): D64.9 - Anemia, unspecified Category: Medical Plan see above Coding Level of Care Code Est Pt Level 3 (89515) Diagnoses Anemia D64.9
== END 2024-05-12 09:57 | disposition home or self-care (01) ==
PROVIDERS: PCP Internal Medicine; Visit Provider Internal Medicine Gastroenterology
DX: D64.9 Anemia, unspecified (principal)
CPT/HCPCS: 99213

== ENCOUNTER → 2024-05-12 09:33 | Outpatient (BNVA) | payer OTHER, SELFPAY | PROVIDERS: PCP Internal Medicine; Visit Provider Internal Medicine Gastroenterology | DX: D64.9 Anemia, unspecified (principal) | CPT/HCPCS: 99212 ==

== ENCOUNTER 2024-05-17 08:29 | Outpatient (REF) | payer OTHER, SELFPAY ==
[2024-05-17 10:59] LABS: MANUAL DIFF FLAG NO
[2024-05-17 11:13] LABS: Basophils Percent Auto 0.2 % (0-2); Eosinophils Absolute Auto 0.2 X10*3/uL (0.0-0.4); Eosinophils Percent Auto 3.9 % (0-4); Hemoglobin 9.7 g/dl (14.0-18.0); Imm Gran Abs Auto 0.02 X10*3/uL (0.00-0.03); Imm Gran Pct Auto 0.5 % (0.0-0.4); Lymphocytes Absolute Auto 0.9 X10*3/uL (1.2-4.9); Lymphocytes Percent Auto 19.9 % (20-40); Mean Corpuscular HGB Conc 32.3 g/dl (31.0-36.0); Mean Corpuscular Hemoglobin 30.6 pg (27.0-33.0); Mean Corpuscular Volume 94.6 fL (80.0-98.0); Mean Platelet Volume 9.6 fL (9.4-12.4); Monocytes Absolute Auto 0.5 X10*3/uL (0.1-1.2); Monocytes Percent Auto 11.1 % (2-11); Neutrophils Absolute Auto 2.8 x10*3/uL (2.0-8.3); Neutrophils Percent Auto 64.4 % (45-73); Platelet Count 126 X10*3/uL (160-400); Red Blood Count 3.17 X10*6/uL (4.60-5.80); Red Cell Distribution Width 14.7 % (11.0-16.0); White Blood Count 4.3 X10*3/uL (4.8-10.8)
[2024-05-17 11:31] LABS: Alanine Aminotransferase 15 U/L (0-40); Albumin Level 3.8 g/dL (3.5-5.0); Alkaline Phosphatase 130 U/L (39-117); Anion Gap 9 (12-20); Aspartate Amino Transferase 16 U/L (5-37); Bilirubin Total 0.7 mg/dL (0.0-1.0); Blood Urea Nitrogen 19 mg/dL (9-16); Calcium 8.7 mg/dL (8.4-10.2); Carbon Dioxide 25 mmol/L (22-29); Chloride 111 mmol/L (96-108); Estimated Glomerular Filt Rate 42; Glucose Random 91 mg/dL (60-115); Sodium 141 mmol/L (135-145); Total Protein 6.5 g/dL (6.5-8.0)
== END 2024-05-17 08:30 | disposition home or self-care (01) ==
LOC: HO.HHCL 08:29
PROVIDERS: Visit Provider Internal Medicine Medical Oncology
DX: D64.9 Anemia, unspecified (principal)
CPT/HCPCS: 36415; 80053; 85025

== ENCOUNTER 2024-05-25 10:52 | Day surgery (SDC) | payer OTHER, SELFPAY ==
--- NOTE | ~2024-05-25 | CT_ITS ---
Pancytopenia PROCEDURES: 1. Limited preprocedure CT of the pelvis. Permanent images saved in PACS. 2. 11 g bone marrow core biopsy of the right posterior iliac spine 3. 11 g bone marrow aspirate of the right posterior iliac spine CLINICIANS: Devon Last PA-C MEDICATIONS: -Versed 1 mg, Fentanyl 50 mcg, and lidocaine 1% 10 mL SQ -Antibiotics: None -For additional details, please see nursing flowsheet. COMPLICATIONS: None ESTIMATED BLOOD LOSS: < 5 ml CONTRAST: None SPECIMENS: 11 g core placed in formalin. Bone marrow aspirate placed in EDTA and sodium heparin tubes MODERATE SEDATION TIME: 23 min PROCEDURE NOTE: The procedure, risks, benefits, and alternatives were carefully explained to the patient and written informed consent was obtained. The patient was placed prone on the CT table. A timeout was performed. A limited CT of the pelvis was performed to localize posterior iliac spine and choose appropriate needle entry and trajectory. The patient was prepped and draped in usual sterile fashion. The skin, subcutaneous tissues, and periosteum were anesthetized with lidocaine. Under CT guidance, an 11-gauge bone marrow biopsy needle was advanced into the posterior iliac spine, with the tip positioned slightly cephalad. An 11-gauge core biopsy of the bone marrow was performed and was placed in formalin. Next, the 11-gauge bone marrow biopsy needle was then advanced into the posterior iliac spine, under CT guidance, with the tip positioned slightly caudal. A bone marrow aspirate was performed. The specimen was placed in the provided EDTA and sodium heparin tubes. The needle was removed. A dry dressing was applied and secured with Tegaderm. There were no immediate complications. The patient was stable after the procedure and was transferred to the post anesthesia care unit. The procedure was done under moderate sedation with a dedicated nurse for monitoring of vital signs. CT/CT biopsy asp core bone marrow Impression: CT-guided bone marrow biopsy and aspirate This procedure was performed by Devon Last PA-C and supervised by Dr. Ramirez.
[2024-05-25 11:08] VITALS: BMI 23.7
[2024-05-25 11:41] LABS: INTERNATIONAL NORM RATIO 1.3 (0.9-1.1); Prothrombin Time 15.2 SEC (11.1-13.3)
[2024-05-25 11:44] LABS: Partial Thromboplastin Time 35.3 SEC (26.0-36.8)
--- NOTE | 2024-05-25 12:42 | MHC.SHP ---
Pre-Procedural Eval Section A - 24 Hr Update-Section A only Date of Service: 05/25/24 Section B - Complete if H&P > 30 days Chief Complaint: aspirate bone marrow--pancytopenia Details of Present Illness: 79 y/o man with pancytopenia Relevant Family History (Specify if Yes): No Relevant Social History: None Present Medications: see Short Stay Collaborative assessment Medical History: Significant History History of Previous Operations: No relevant previous surgery Allergies: Allergies Allergy/AdvReac Type Severity Reaction Status Date / Time No Known Allergies Allergy Verified 05/25/24 11:08 [No Known Allergies*] Review of Systems Sugical H&P ROS: Negative: Constitution, Cardiovascular and Respiratory Exam Surgical H&P Exam: Normal: Lungs, Normal: Skin and Normal: Neurological and Significant Findings: Heart (bradycardia) Plan CT bone marrow biopsy Time Spent With Patient Time: Total time managing care of this patient today ____ minutes.
[2024-05-25 13:57] VITALS: BP 156/68; PULSE 57; RESP 15; TEMP 36.4; O2SAT 95
[2024-05-25 14:12] VITALS: BP 143/62; PULSE 64; RESP 18; TEMP 36.6; O2SAT 100
[2024-05-25 14:27] VITALS: BP 149/65; PULSE 54; RESP 18; TEMP 36.8; O2SAT 99
[2024-05-25 14:43] LABS: Bone Marrow SEE SEPARATE REPORT
== END 2024-05-25 14:30 | disposition home or self-care (01) ==
PROVIDERS: Pathology Anatomic Pathology & Clinical Pathology; Physician Assistant Surgical; Student in an Organized Health Care Education/Training Program; PCP Internal Medicine; Visit Provider Internal Medicine Medical Oncology
PROC: (CPT 38221; principal; 2024-05-25 13:00)
DX: D61.818 Other pancytopenia (principal); I48.91 Unspecified atrial fibrillation; E78.5 Hyperlipidemia, unspecified; I10 Essential (primary) hypertension; G35 Multiple sclerosis; Z79.82 Long term (current) use of aspirin; Z79.01 Long term (current) use of anticoagulants; Z79.899 Other long term (current) drug therapy; Z87.891 Personal history of nicotine dependence; Z98.890 Other specified postprocedural states
CPT/HCPCS: 36415; 38222; 81455; 85610; 85730; 88184; 88185; 88237; 88264; 88280; 88305; 88311; 88313; 88342; 99152; J1642; J2250; J2310; J3010

== ENCOUNTER → 2024-05-25 13:02 | Outpatient (BNV) | payer OTHER, SELFPAY | PROVIDERS: PCP Internal Medicine; Visit Provider Physician Assistant Surgical | DX: D61.818 Other pancytopenia (principal) | CPT/HCPCS: 38222; 77012; 99152 ==

== ENCOUNTER 2024-05-31 13:05 | Outpatient (AMB) | payer OTHER, SELFPAY ==
--- NOTE | 2024-05-31 13:12 | MHC.OFFVISCO ---
Intake Intake Visit Reasons: Anticoagulation Allergies No Known Allergies [No Known Allergies*] Allergy (Verified 05/31/24 13:08) Medication List - Last Reconciled 05/31/24 by Joyce Garcia RN amlodipine 5 mg PO DAILY aspirin 81 mg PO DAILY atorvastatin 80 mg PO BEDTIME cholecalciferol (vitamin D3) 25 mcg PO DAILY dorzolamide-timolol 22.3-6.8 mg/mL 22.3 drps ophthalmic (eye) BID ferrous sulfate (FeroSul) 1 tab PO DAILY furosemide 20 mg PO BID lisinopril 40 mg PO DAILY octreotide acetate (Mycapssa) 20 mg PO DAILY travoprost 0.004% 1 drp ophthalmic (eye) BEDTIME warfarin 5 mg See Protocol PO DAILY Nursing Note INR 1.4-?? out of therapeutic range of 2-3 pt denies missed dose Medications and supplements reviewed Patient status: no c.o Medications or supplements: no changes Diet: same- had avocado Denies any signs and symptoms of bleeding or clotting or unusual bruising Bleeding, bruising, clotting discussed Nutritional guidance given: no greens for 2-3 days Dose: increase warfarin today and tomm to 5mg then cont 2.5mg x 5, 5mg x 2 F/U INR Date : wed06/05/24? Patient verbalizing understanding of instructions given. t/c placed to [facility] pcp dr choe to report low inr, dosing and f/u appt. spoke to cate at 1315 Anti-Coag Initial Assessment Social Hx Patient Tobacco Use Status: Former Tobacco user Tobacco use type: Cigarette alcohol intake: former Alcohol intake frequency: does not drink Coding Level of Care Code Est Patient Level 1 Diagnoses Current use of anticoagulant therapy Z79.01 Assessment & Plan Assessment & Plan (1) Current use of anticoagulant therapy: Comment: warfarin-Brittanieyun Margarette- need to confirm ok to stop 5 days prior to colonoscopy-unable to send note through expanse Patient aware this must be confirmed, there were no major barriers to understanding identified Code(s): 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
[2024-05-31 13:13] LABS: Prothrombin Time Whole Bld POC 16.2 sec (11.1-13.5); ~PT, ~INR - Anti Coag Clinic 1.4 (0.9-1.1)
== END 2024-05-31 13:23 | disposition home or self-care (01) ==
LOC: HO.ACS 13:05
PROVIDERS: PCP Internal Medicine; Visit Provider Internal Medicine
DX: Z79.01 Long term (current) use of anticoagulants (principal)

== ENCOUNTER → 2024-05-31 13:05 | Outpatient (BNVA) | payer OTHER, SELFPAY | PROVIDERS: PCP Internal Medicine; Visit Provider Internal Medicine | DX: I48.0 Paroxysmal atrial fibrillation (principal); Z79.01 Long term (current) use of anticoagulants; Z51.81 Encounter for therapeutic drug level monitoring | CPT/HCPCS: 85610; 99211 ==

== ENCOUNTER 2024-06-05 13:05 | Outpatient (AMB) | payer OTHER, SELFPAY ==
--- NOTE | 2024-06-05 13:17 | MHC.OFFVISCO ---
Intake Intake Visit Reasons: Anticoagulation Allergies No Known Allergies [No Known Allergies*] Allergy (Verified 06/05/24 13:06) Medication List - Last Reconciled 06/05/24 by Lisa Ruth RN amlodipine 5 mg PO DAILY aspirin 81 mg PO DAILY atorvastatin 80 mg PO BEDTIME cholecalciferol (vitamin D3) 25 mcg PO DAILY dorzolamide-timolol 22.3-6.8 mg/mL 22.3 drps ophthalmic (eye) BID ferrous sulfate (FeroSul) 1 tab PO DAILY furosemide 20 mg PO BID lisinopril 40 mg PO DAILY octreotide acetate (Mycapssa) 20 mg PO DAILY travoprost 0.004% 1 drp ophthalmic (eye) BEDTIME warfarin 5 mg See Protocol PO DAILY Nursing Note INR 2.0? out of therapeutic range Medications and supplements reviewed Patient status: WELL - STATES HE ATE TOO MUCH AVOCAO PREVIOUS VISIT, THE [place] AVOCADO IS MUCH LARGER Medications or supplements: NO CHANGES Diet: GOOD Denies any signs and symptoms of bleeding or clotting or unusual bruising Bleeding, bruising, clotting discussed Nutritional guidance given: REVIEW FOOD LIST - WHEN EATING MORE AVOCADO - EAT MORE ORANGE AND REDS TO OFFEST THE AVOCADO Dose: RESUME USUAL DOSE 5MG X 2 DAYS / 2.5MG X 5 DAYS F/U INR Date: 2 WEEKS ?? Patient verbalizing understanding of instructions given. Anti-Coag Initial Assessment Social Hx Patient Tobacco Use Status: Former Tobacco user Tobacco use type: Cigarette alcohol intake: former Alcohol intake frequency: does not drink Coding Level of Care Code Est Patient Level 1 Diagnoses Current use of anticoagulant therapy Z79.01 Results AMB INR Fingerstick AMB INR Fingerstick 2.0 Last Edit by Lisa Ruth RN on 06/05/24 13:17 FAILED INTERFACING Assessment & Plan Assessment & Plan (1) Current use of anticoagulant therapy: Comment: warfarin-Fabrizioehyun Margarette- need to confirm ok to stop 5 days prior to colonoscopy-unable to send note through expanse Patient aware this must be confirmed, there were no major barriers to understanding identified Code(s): 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
== END 2024-06-05 13:22 | disposition home or self-care (01) ==
LOC: HO.ACS 13:05
PROVIDERS: PCP Internal Medicine; Visit Provider Internal Medicine
DX: Z79.01 Long term (current) use of anticoagulants (principal)

== ENCOUNTER → 2024-06-05 13:05 | Outpatient (BNVA) | payer OTHER, SELFPAY | PROVIDERS: PCP Internal Medicine; Visit Provider Internal Medicine | DX: I48.0 Paroxysmal atrial fibrillation (principal); Z79.01 Long term (current) use of anticoagulants; Z51.81 Encounter for therapeutic drug level monitoring | CPT/HCPCS: 85610; 99211 ==

== ENCOUNTER 2024-06-21 13:01 | Outpatient (AMB) | payer OTHER, SELFPAY ==
[2024-06-21 13:14] LABS: Prothrombin Time Whole Bld POC 23.8 sec (11.1-13.5)
--- NOTE | 2024-06-21 13:16 | MHC.OFFVISCO ---
Intake Intake Visit Reasons: Anticoagulation Allergies No Known Allergies [No Known Allergies*] Allergy (Verified 06/21/24 13:09) Medication List - Last Reconciled 06/21/24 by Sandie Doran RN amlodipine 5 mg PO DAILY aspirin 81 mg PO DAILY atorvastatin 80 mg PO BEDTIME cholecalciferol (vitamin D3) 25 mcg PO DAILY dorzolamide-timolol 22.3-6.8 mg/mL 22.3 drps ophthalmic (eye) BID ferrous sulfate (FeroSul) 1 tab PO DAILY furosemide 20 mg PO BID lisinopril 40 mg PO DAILY octreotide acetate (Mycapssa) 20 mg PO DAILY travoprost 0.004% 1 drp ophthalmic (eye) BEDTIME warfarin 5 mg See Protocol PO DAILY Nursing Note Amb to ACS feeling well Medications and supplements reviewed No changes in health, diet, medications, or supplements, Denies any signs and symptoms of bleeding, bruising, or clotting. Bleeding, bruising, clotting discussed INR 2.0 low in range (2nd visit at 2.0 prev 1.4, may need weekly increase if next visit remains low or below) Dose: continue usual dosing 5mg x 2 days and 2.5mg x 5 days balance greens and reds in diet F/U INR: 2 weeks Patient verbalizes understanding of instructions given Anti-Coag Initial Assessment Social Hx Patient Tobacco Use Status: Former Tobacco user Tobacco use type: Cigarette alcohol intake: former Alcohol intake frequency: does not drink Coding Level of Care Code Est Patient Level 1 Diagnoses Current use of anticoagulant therapy Z79.01 Time Spent (min) 15 Assessment & Plan Assessment & Plan (1) Current use of anticoagulant therapy: Comment: warfarin-Otto Pfeiffer- need to confirm ok to stop 5 days prior to colonoscopy-unable to send note through expanse Patient aware this must be confirmed, there were no major barriers to understanding identified Code(s): Z79.01 - 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
== END 2024-06-21 13:21 | disposition home or self-care (01) ==
LOC: HO.ACS 13:01
PROVIDERS: PCP Internal Medicine; Visit Provider Internal Medicine
DX: Z79.01 Long term (current) use of anticoagulants (principal)

== ENCOUNTER → 2024-06-21 13:01 | Outpatient (BNVA) | payer OTHER, SELFPAY | PROVIDERS: PCP Internal Medicine; Visit Provider Internal Medicine | DX: I48.0 Paroxysmal atrial fibrillation (principal); Z51.81 Encounter for therapeutic drug level monitoring; Z79.01 Long term (current) use of anticoagulants | CPT/HCPCS: 85610; 99211 ==

== ENCOUNTER 2024-06-27 06:41 | Outpatient (REF) | payer OTHER, SELFPAY ==
[2024-06-27 07:19] LABS: INTERNATIONAL NORM RATIO 1.8 (0.9-1.1); Prothrombin Time 21.4 SEC (11.1-13.3)
[2024-06-27 07:39] LABS: Alanine Aminotransferase 16 U/L (0-40); Albumin Level 3.9 g/dL (3.5-5.0); Alkaline Phosphatase 130 U/L (39-117); Anion Gap 14 (12-20); Aspartate Amino Transferase 16 U/L (5-37); Bilirubin Total 0.8 mg/dL (0.0-1.0); Blood Urea Nitrogen 19 mg/dL (9-16); Calcium 9.3 mg/dL (8.4-10.2); Carbon Dioxide 22 mmol/L (22-29); Chloride 110 mmol/L (96-108); Estimated Glomerular Filt Rate 40; Glucose Random 100 mg/dL (60-115); Potassium 4.8 mmol/L (3.3-5.1); Sodium 141 mmol/L (135-145); Total Protein 6.6 g/dL (6.5-8.0)
[2024-06-27 08:02] LABS: PSA,Total (Free>4and<10) 4.05 ng/mL (0.00-4.00)
[2024-06-29 11:03] LABS: Percent Free Prostate Spec Ag 41 % (calc) (>25); Prostate Specific Ag Total 4.9 ng/mL (< OR = 4.0)
== END 2024-06-27 06:42 | disposition home or self-care (01) ==
LOC: HO.LAB 06:41
PROVIDERS: Internal Medicine; PCP Internal Medicine; Visit Provider Urology
DX: Z12.5 Encounter for screening for malignant neoplasm of prostate (principal); R97.20 Elevated prostate specific antigen [PSA]; R60.0 Localized edema; Z79.01 Long term (current) use of anticoagulants
CPT/HCPCS: 36415; 80053; 84153; 84154; 85610

== ENCOUNTER 2024-07-04 10:09 | Outpatient (REF) | payer OTHER, SELFPAY ==
--- NOTE | ~2024-07-04 | US_ITS ---
EXAMINATION: US COMPLETE ABDOMEN WITH LIVER ELASTOGRAPHY CLINICAL INFORMATION: Pancytopenia, hypersplenism. COMPARISON: CT abdomen and pelvis 01/04/2019. TECHNIQUE: Real-time imaging of the abdominal viscera. Noninvasive ultrasound liver fibrosis assessment is performed using Halina ElastPQ point quantification shear wave elastography (pSWE) with a C5-2 MHz transducer. Multiple elastography samples are obtained. FINDINGS: PANCREAS: Pancreas was obscured by bowel gas and could not be evaluated. ABDOMINAL AORTA: The proximal, middle, and distal aortic segments are normal in caliber. INFERIOR VENA CAVA: Visualized portions are normal. LIVER: Liver demonstrates borderline increased echogenicity. No focal lesion or intrahepatic biliary duct dilatation. The right lobe measures 12.2 cm in length. The left lobe measures 7.8 cm in length. Portal flow is towards the liver (hepatopetal). Shear wave liver elastography median stiffness is 2.44 m/s (reference: normal median stiffness is 1.3 m/s or less). IQR/median stiffness to assess sampling precision is 0.21 (reference: good quality data set is IQR/median stiffness of 0.15 or less). GALLBLADDER: Normal. The gallbladder is physiologically distended without evidence of stones, sludge, polyps, wall thickening or pericholecystic fluid. COMMON BILE DUCT: Normal in caliber measuring 0.2 cm in diameter. RIGHT KIDNEY: Renal echogenicity is increased suggesting medical renal disease. No hydronephrosis. No renal calculi. A benign 0.8 cm Bosniak class I renal cyst is noted which requires no additional imaging or follow up. No solid renal masses are seen. The kidney measures 9.4 cm in maximum dimension. LEFT KIDNEY: Renal echogenicity is increased suggesting medical renal disease. No hydronephrosis. No renal calculi. A benign 0.7 cm Bosniak class I renal cyst is noted which requires no additional imaging or follow up. No solid renal masses are seen. The kidney measures 9.6 cm in maximum dimension. SPLEEN: Normal. The spleen measures 11.3 cm in maximum dimension. FREE FLUID: Base ascites is present. US/US abdomen comp w elastography IMPRESSION: 1. Echogenic liver with hepatic steatosis. 2. Liver Elastography: Measurements are consistent with compensated advanced chronic liver disease. REFERENCE: Society of Radiologists in Ultrasound Liver Stiffness Thresholds (2020): LIVER STIFFNESS THRESHOLDS: *Liver Stiffness equal or less than 1.3 m/s: High probability of being normal. *Liver Stiffness less than 1.7 m/s: In the absence of other known clinical signs, rules out compensated advanced chronic liver disease. *Liver Stiffness 1.7-2.1 m/s: Suggestive of compensated advanced chronic liver disease but need further test for confirmation. *Liver Stiffness over 2.1 m/s: Rules in compensated advanced chronic liver disease. *Liver Stiffness over 2.4 m/s: Suggestive of clinically significant portal hypertension. QUALITY OF DATA SET: *IQR/Median value equal or less than 0.15 implies a quality data set. *IQR/Median value over 0.15 implies a poor quality data set. SIGNIFICANT CHANGE FROM PRIOR EXAM: Significant change if liver stiffness measurement is 10% or greater from prior exam. OTHER CONSIDERATIONS: The stage of liver fibrosis may be overestimated in the setting of acute hepatitis, liver inflammation, elevated liver function tests, hepatic vascular congestion, obstructive cholestasis, non-fasting state, and infiltrative diseases such as amyloidosis and lymphoma. In some patients with NAFLD, the liver stiffness thresholds for compensated advanced chronic liver disease may be lower. In causes other than viral hepatitis and NAFLD, liver stiffness thresholds are not well established. Electronically signed by: Corby Randolph MD 07/13/2024 09:54 PM EDT
== END 2024-07-04 10:10 | disposition home or self-care (01) ==
LOC: HO.US 10:09
PROVIDERS: PCP Internal Medicine; Visit Provider Internal Medicine Medical Oncology
DX: D61.818 Other pancytopenia (principal)
CPT/HCPCS: 76700; 76981

== ENCOUNTER 2024-07-05 13:02 | Outpatient (AMB) | payer OTHER, SELFPAY ==
[2024-07-05 13:09] LABS: ~PT, ~INR - Anti Coag Clinic 1.5 (0.9-1.1)
--- NOTE | 2024-07-05 13:11 | MHC.OFFVISCO ---
Intake Intake Visit Reasons: Anticoagulation Allergies No Known Allergies [No Known Allergies*] Allergy (Verified 07/05/24 13:05) Medication List - Last Reconciled 07/05/24 by Neena Boyce RN amlodipine 5 mg PO DAILY aspirin 81 mg PO DAILY atorvastatin 80 mg PO BEDTIME cholecalciferol (vitamin D3) 25 mcg PO DAILY dorzolamide-timolol 22.3-6.8 mg/mL 22.3 drps ophthalmic (eye) BID ferrous sulfate (FeroSul) 1 tab PO DAILY furosemide 20 mg PO BID lisinopril 40 mg PO DAILY octreotide acetate (Mycapssa) 20 mg PO DAILY travoprost 0.004% 1 drp ophthalmic (eye) BEDTIME warfarin 5 mg See Protocol PO DAILY Nursing Note PT.DENIES ANY CP,SOB,DIET/MED CHANGES,FALLS OR SX OF BLEEDING. 5MGM TODAY AND TOMORROW THEN INCREASE WEEKLY DOSE AND FOLLOW-UP IN 1 WEEK. NO GREENS 2 DAY GOOD UNDERSTANDING OF DOSING INSTR. ([facility])NOTIFIED OF LOW INR AND PLAN OF CARE. 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
== END 2024-07-05 13:31 | disposition home or self-care (01) ==
LOC: HO.ACS 13:02
PROVIDERS: PCP Internal Medicine; Visit Provider Internal Medicine
DX: Z79.01 Long term (current) use of anticoagulants (principal)

== ENCOUNTER → 2024-07-05 13:02 | Outpatient (BNVA) | payer OTHER, SELFPAY | PROVIDERS: PCP Internal Medicine; Visit Provider Internal Medicine | DX: I48.0 Paroxysmal atrial fibrillation (principal); Z79.01 Long term (current) use of anticoagulants; Z51.81 Encounter for therapeutic drug level monitoring | CPT/HCPCS: 85610; 99211 ==

== ENCOUNTER 2024-07-07 09:07 | Outpatient (AMB) | payer OTHER, SELFPAY ==
--- NOTE | 2024-07-07 09:30 | MHC.OFFVIS ---
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 He is a patient of . He is seen for the following urologic conditions - microscopic hematuria - bladder outlet obstruction - high PSA with high free PSA Turkmen translation provided in office by qualified medical lab scientist Has remained on terazosin for voiding PVR 17 cc Lower urinary tract symptoms Weakness of stream with urinary urge Terazosin 5 mg follow-up Has been effective with improved urination Discussed procedure versus continue medications Review in 6 months Microscopic hematuria Prior evaluation to be 19 with a negative workup Persistent 2+ hematuria with evaluation by Nephrology Remains on anticoagulation Prior history of urinary tract infections Had previously been on tamsulosin which he no longer takes Reports effective bladder storage and voiding parameters PSA 04/29 4.4, 04/30 4.5 46% Free Yearly review [facility] Medical History Atrial fibrillation Tubular adenoma Dyslipidemia HTN (hypertension) Surgical History Hx of bilateral cataract extraction Hx of colonoscopy History of esophagogastroduodenoscopy (EGD) Family History Father Throat cancer Brother Prostate cancer Asthma Sister Hypertension Diabetes Mother Hypertension Social History Household Members: None Housing: Apartment Are you a primary home care rn to a significant other at home: No Do you presently have visiting nurse or other home services: Yes (every 6 months) Alcohol intake: former Patient Tobacco Use Status: Former Tobacco user Tobacco use type: Cigarette service: No Current occupational status: retired Office Procedures Post Void Residual Post Residual Void Post Void Residual (PVR): 17 [id number] Void Residual by ultrasound Assessment & Plan Assessment & Plan (1) BPH w urinary obs/LUTS: Code(s): N40.1 - Benign prostatic hyperplasia with lower urinary tract symptoms; N13.8 - Other obstructive and reflux uropathy Category: Medical (2) Elevated PSA: Code(s): R97.20 - Elevated prostate specific antigen [PSA] Category: Medical Plan Twelve month follow-up PVR and PSA Orders: Orders PSA,Total (Free>4and<10) 364 Days R97.20 - Elevated prostate specific antigen [PSA] AMB Post Void Residual by ultrasound Today N13.8 - Other obstructive and reflux uropathy, N40.1 - Benign prostatic hyperplasia with lower urinary tract symptoms Medications: New terazosin 5 mg PO BEDTIME 90 days 90 caps 3RF N40.1 - Benign prostatic hyperplasia with lower urinary tract symptoms, R35.0 - Frequency of micturition, R97.20 - Elevated prostate specific antigen [PSA] Patient Instructions: Imaging studies, laboratory and physical exam results were discussed and reviewed in detail. No major barriers to patient understanding were identified. An opportunity to ask questions regarding the treatment plan was provided. All questions were answered. The patient expressed understanding and agreement with the above treatment plan. The patient is aware they should contact our office by phone for worsening of their current condition or the appearance of new urologic symptoms. Compliance is encouraged with any medications and followup testing that is ordered. It is a privilege to participate in the urologic care of your patient. If you have any questions or concerns regarding treatment for the above conditions, or other urologic issues, please do not hesitate to contact me. The office telephone contact is [phone]. This note is constructed using voice recognition software. While every effort has been made to ensure accuracy ship superintendent errors may have been included. Yours sincerely, Dr Scout Melo MD, [facility] - Urology Providers of Expert, Compassionate Care for the Genitourinary System Coding Level of Care Code Est Pt Level 3 (20314) Diagnoses BPH w urinary obs/LUTS N40.1; N13.8 Elevated PSA R97.20 CPT Codes Post Residual Void - PVR CPT Code: [id number] Void Residual by ultrasound ([id number])
== END 2024-07-07 10:02 | disposition home or self-care (01) ==
PROVIDERS: PCP Internal Medicine; Visit Provider Urology
DX: N40.1 Benign prostatic hyperplasia with lower urinary tract symptoms (principal); N13.8 Other obstructive and reflux uropathy; R97.20 Elevated prostate specific antigen [PSA]
CPT/HCPCS: 99213

== ENCOUNTER → 2024-07-07 09:07 | Outpatient (BNVA) | payer OTHER, SELFPAY | PROVIDERS: PCP Internal Medicine; Visit Provider Urology | DX: R31.29 Other microscopic hematuria (principal); N40.1 Benign prostatic hyperplasia with lower urinary tract symptoms; N13.8 Other obstructive and reflux uropathy; R97.20 Elevated prostate specific antigen [PSA] | CPT/HCPCS: 51798; 99212 ==

== ENCOUNTER 2024-07-12 13:00 | Outpatient (AMB) | payer OTHER, SELFPAY ==
--- NOTE | 2024-07-12 13:11 | MHC.OFFVISCO ---
Intake Intake Visit Reasons: Anticoagulation Allergies No Known Allergies [No Known Allergies*] Allergy (Verified 07/12/24 13:04) Medication List - Last Reconciled 07/12/24 by Joyce Garcia RN amlodipine 5 mg PO DAILY aspirin 81 mg PO DAILY atorvastatin 80 mg PO BEDTIME cholecalciferol (vitamin D3) 25 mcg PO DAILY dorzolamide-timolol 22.3-6.8 mg/mL 22.3 drps ophthalmic (eye) BID ferrous sulfate (FeroSul) 1 tab PO DAILY furosemide 20 mg PO BID lisinopril 40 mg PO DAILY octreotide acetate (Mycapssa) 20 mg PO DAILY terazosin 5 mg PO BEDTIME 90 days travoprost 0.004% 1 drp ophthalmic (eye) BEDTIME warfarin 5 mg See Protocol PO DAILY Nursing Note INR 1.9-? out of therapeutic range of 2-3 Medications and supplements reviewed Patient status: denies missed dose, denies increased greens Medications or supplements: no changes Diet: same Denies any signs and symptoms of bleeding or clotting or unusual bruising Bleeding, bruising, clotting discussed Nutritional guidance given: no karishma for 2 days, eat reds to raise food list provided Dose: cont increased dosing 5mg x 3, 2.5mg x 4 F/U INR Date : pt req 2 weeks Patient verbalizing understanding of instructions given. Anti-Coag Initial Assessment Social Hx Patient Tobacco Use Status: Former Tobacco user Tobacco use type: Cigarette alcohol intake: former Alcohol intake frequency: does not drink Coding Level of Care Code Est Patient Level 1 Diagnoses Current use of anticoagulant therapy Z79.01 Assessment & Plan Assessment & Plan (1) Current use of anticoagulant therapy: Comment: warfarin-Otto Margarette- need to confirm ok to stop 5 days prior to colonoscopy-unable to send note through expanse Patient aware this must be confirmed, there were no major barriers to understanding identified Code(s): Z79.01 - retirement (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
[2024-07-12 13:12] LABS: Prothrombin Time Whole Bld POC 22.6 sec (11.1-13.5); ~PT, ~INR - Anti Coag Clinic 1.9 (0.9-1.1)
== END 2024-07-12 13:29 | disposition home or self-care (01) ==
LOC: HO.ACS 13:00
PROVIDERS: PCP Internal Medicine; Visit Provider Internal Medicine
DX: Z79.01 Long term (current) use of anticoagulants (principal)

== ENCOUNTER → 2024-07-12 13:00 | Outpatient (BNVA) | payer OTHER, SELFPAY | PROVIDERS: PCP Internal Medicine; Visit Provider Internal Medicine | DX: I48.0 Paroxysmal atrial fibrillation (principal); Z79.01 Long term (current) use of anticoagulants; Z51.81 Encounter for therapeutic drug level monitoring | CPT/HCPCS: 85610; 99211 ==

== ENCOUNTER 2024-07-26 13:02 | Outpatient (AMB) | payer OTHER, SELFPAY ==
--- NOTE | 2024-07-26 13:09 | MHC.OFFVISCO ---
Intake Intake Visit Reasons: Anticoagulation Allergies No Known Allergies [No Known Allergies*] Allergy (Verified 07/26/24 13:05) Medication List - Last Reconciled 07/26/24 by Joyce Garcia RN amlodipine 5 mg PO DAILY aspirin 81 mg PO DAILY atorvastatin 80 mg PO BEDTIME cholecalciferol (vitamin D3) 25 mcg PO DAILY dorzolamide-timolol 22.3-6.8 mg/mL 22.3 drps ophthalmic (eye) BID ferrous sulfate (FeroSul) 1 tab PO DAILY furosemide 20 mg PO BID lisinopril 40 mg PO DAILY octreotide acetate (Mycapssa) 20 mg PO DAILY terazosin 5 mg PO BEDTIME 90 days travoprost 0.004% 1 drp ophthalmic (eye) BEDTIME warfarin 5 mg See Protocol PO DAILY Nursing Note INR: 2.1- in therapeutic range 2-3 Medications and supplements reviewed- no changes No changes in health, diet, medications, or supplements, Denies any signs and symptoms of bleeding or bruising or clotting. Bleeding, bruising, clotting discussed Nutritional guidance given Dose: 5mg x 3, 2.5mg x 4 F/U INR: pt req 3 weeks Patient verbalizes understanding of instructions given Anti-Coag Initial Assessment Social Hx Patient Tobacco Use Status: Former Tobacco user Tobacco use type: Cigarette alcohol intake: former Alcohol intake frequency: does not drink Coding Level of Care Code Est Patient Level 1 Diagnoses Current use of anticoagulant therapy Z79.01 Results AMB INR Fingerstick AMB INR Fingerstick 2.1 Last Edit by Joyce Garcia RN on 07/26/24 13:11 interface delay Assessment & Plan Assessment & Plan (1) Current use of anticoagulant therapy: Comment: warfarin-Brittanieyun Margarette- need to confirm ok to stop 5 days prior to colonoscopy-unable to send note through expanse Patient aware this must be confirmed, there were no major barriers to understanding identified Code(s): Z79.01 - senior living (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
[2024-07-26 13:11] LABS: Prothrombin Time Whole Bld POC 24.9 sec (11.1-13.5); ~PT, ~INR - Anti Coag Clinic 2.1 (0.9-1.1)
== END 2024-07-26 13:14 | disposition home or self-care (01) ==
LOC: HO.ACS 13:02
PROVIDERS: PCP Internal Medicine; Visit Provider Internal Medicine
DX: Z79.01 Long term (current) use of anticoagulants (principal)

== ENCOUNTER → 2024-07-26 13:02 | Outpatient (BNVA) | payer OTHER, SELFPAY | PROVIDERS: PCP Internal Medicine; Visit Provider Internal Medicine | DX: I48.0 Paroxysmal atrial fibrillation (principal); Z79.01 Long term (current) use of anticoagulants; Z51.81 Encounter for therapeutic drug level monitoring | CPT/HCPCS: 85610; 99211 ==

== ENCOUNTER 2024-07-31 08:09 | Outpatient (REF) | payer OTHER, SELFPAY ==
[2024-07-31 11:32] LABS: Prothrombin Time 22.8 SEC (10.9-12.4)
[2024-07-31 12:00] LABS: Alanine Aminotransferase 15 U/L (0-40); Albumin Level 3.9 g/dL (3.5-5.0); Alkaline Phosphatase 127 U/L (39-117); Anion Gap 11 (12-20); Aspartate Amino Transferase 18 U/L (5-37); Bilirubin Total 1.2 mg/dL (0.0-1.0); Blood Urea Nitrogen 22 mg/dL (9-16); Calcium 8.8 mg/dL (8.4-10.2); Carbon Dioxide 24 mmol/L (22-29); Chloride 111 mmol/L (96-108); Estimated Glomerular Filt Rate 42; Glucose Random 84 mg/dL (60-115); Potassium 3.9 mmol/L (3.3-5.1); Sodium 142 mmol/L (135-145); Total Protein 6.7 g/dL (6.5-8.0)
== END 2024-07-31 08:10 | disposition home or self-care (01) ==
LOC: HO.HHCL 08:09
PROVIDERS: Referring Provider Student in an Organized Health Care Education/Training Program; Visit Provider Internal Medicine
DX: N18.30 Chronic kidney disease, stage 3 unspecified (principal); Z79.01 Long term (current) use of anticoagulants
CPT/HCPCS: 36415; 80053; 85610

== ENCOUNTER 2024-08-09 14:55 | Outpatient (AMB) | payer OTHER, SELFPAY ==
[2024-08-09 15:10] VITALS: BP 130/50; PULSE 54; O2SAT 99; BMI 28.9
--- NOTE | 2024-08-09 15:10 | HO.NEPHOV ---
Vital Signs 08/09/24 15:10 Height 5 ft 9 in Weight 196 lb BMI 28.9 BP 130/50 L Blood Pressure Location Lt brachial Position Sitting Pulse 54 Pulse Source Pulse Oximeter Pulse Oximetry (%) 99 Oxygen Delivery Method Room Air Intake Visit Reasons: CKD STG3A/ Conf Oil Well Service Unit Operator Required: Yes Oil Well Service Unit Operator Services: Oil Well Service Unit Operator Present Oil Well Service Unit Operator Name: Mainor Whitehead [id number] Accompanied by: Self / Same As Patient Allergies No Known Allergies [No Known Allergies*] Allergy (Verified 08/09/24 15:12) Medication List - Last Reconciled 08/09/24 by Niko Salamanca MD amlodipine 5 mg PO DAILY aspirin 81 mg PO DAILY atorvastatin 80 mg PO BEDTIME cholecalciferol (vitamin D3) 25 mcg PO DAILY dorzolamide-timolol 22.3-6.8 mg/mL 22.3 drps ophthalmic (eye) BID ferrous sulfate (FeroSul) 1 tab PO DAILY furosemide 20 mg PO BID lisinopril 40 mg PO DAILY octreotide acetate (Mycapssa) 20 mg PO DAILY terazosin 5 mg PO BEDTIME 90 days travoprost 0.004% 1 drp ophthalmic (eye) BEDTIME warfarin 5 mg See Protocol PO DAILY HPI Comments Details: Joby is a pleasant 79-year-old man with a history of chronic kidney disease. He has a history of BPH and he has been evaluated by Urology. He has been referred for chronic kidney disease. As of 07/31/2024 serum creatinine was 1.61. This has remained unchanged for at least 2 months. Ongoing medical problems include hypertension and atrial fibrillation. Today he is having some difficulty urination. No hematuria. No urgency. No fever. No shortness of breath no chest pain nausea or vomiting. [facility] Medical History Atrial fibrillation Tubular adenoma Dyslipidemia HTN (hypertension) Surgical History Hx of bilateral cataract extraction Hx of colonoscopy History of esophagogastroduodenoscopy (EGD) Family History Father Throat cancer Brother Prostate cancer Asthma Sister Hypertension Diabetes Mother Hypertension Social History Household Members: None Housing: Apartment Are you a primary care advocate to a significant other at home: No Do you presently have visiting nurse or other home services: Yes (every 6 months) Alcohol intake: former Patient Tobacco Use Status: Former Tobacco user Tobacco use type: Cigarette service: No Current occupational status: retired Physical Exam Vital Signs: Last Vital Signs Pulse 54 08/09/24 15:10 BP 130/50 L 08/09/24 15:10 Pulse Ox 99 08/09/24 15:10 Oxygen Delivery Method Room Air 08/09/24 15:10 BMI result Body Mass Index 28.9 Const General: comfortable; No acute distress Orientation/consciousness: patient oriented x3 Eyes General: appearance normal, both eyes and all related structures Visual Damon: normal visual damon by confrontation Neck Neck: Yes supple and Yes no JVD Resp Effort & Inspection: normal respiratory effort and respiratory effort not decreased Auscultation: rhonchi Cardio Palpation: no palpable S3 and no palpable S4 Heart sounds: no rubs GI Inspection: Yes normal to inspection Palpation (GI): Soft to palpation Percussion: Yes normal to percussion Auscultation: normal bowel sounds General: Yes no CVA tenderness Back/Spine/Pelvis Back: no CVA tenderness Skin General skin exam: no petechiae and no purpura Neuro General: patient oriented x3 and no focal motor deficits Extrem General: No clubbing and Yes edema (1+) Results Reviewed Nephrology Results: Hgb 8.3 g/dl (14.0-18.0) L 08/09/24 WBC 4.1 X10*3/uL (4.8-10.8) L 08/09/24 Plt Count 118 X10*3/uL (160-400) L 08/09/24 Sodium 140 mmol/L (135-145) 08/09/24 Potassium 3.9 mmol/L (3.3-5.1) 08/09/24 Chloride 110 mmol/L (96-108) H 08/09/24 Carbon Dioxide 24 mmol/L (22-29) 08/09/24 BUN 15 mg/dL (9-16) 08/09/24 Creatinine 1.63 mg/dL (0.5-1.4) H 08/09/24 Calcium 8.6 mg/dL (8.4-10.2) 08/09/24 PTH Intact 128.2 pg/mL (8.7-77.1) H 08/09/24 Urine Protein Trace mg/dL (Neg-Trace) 08/09/24 Urine Creatinine 33.37 mg/dL 08/09/24 Assessment & Plan Assessment & Plan (1) CKD (chronic kidney disease): Code(s): N18.9 - Chronic kidney disease, unspecified Category: Medical (2) HTN (hypertension): Code(s): I10 - Essential (primary) hypertension Category: Medical (3) Anemia: Code(s): D64.9 - Anemia, unspecified Category: Medical (4) BPH w urinary obs/LUTS: Code(s): N40.1 - Benign prostatic hyperplasia with lower urinary tract symptoms; N13.8 - Other obstructive and reflux uropathy Category: Medical Plan . 79-year-old man with longstanding hypertension and BPH has chronic kidney disease. Serum creatinine in has been stable around 1.6 mg/dL. He has a history of bladder outlet obstruction and he was seen by Dr. Melo in June of 2024 I suspect he could continue to have urinary retention/obstructive uropathy to explain CKD. Other possibility would include hypertensive nephrosclerosis. In the past urine sediments were bland therefore glomerular nephritis or interstitial disease seem unlikely. I have initiated a workup for CKD including an urgent renal ultrasonogram. Repeat renal panel Stay on low-sodium diet Continue to increase p.o. intake. Today the blood pressure is acceptable. I will continue the same antihypertensive medications He should stay on low-sodium diet. 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 He returned to office once the baseline workup is completed I will keep you updated. Orders: Orders Comprehensive Met. Panel 08/09/24 I10 - Essential (primary) hypertension, N18.9 - Chronic kidney disease, unspecified UA and rflx microscopic 08/09/24 I10 - Essential (primary) hypertension, N18.9 - Chronic kidney disease, unspecified Total Protein Urine Random 08/09/24 I10 - Essential (primary) hypertension, N18.9 - Chronic kidney disease, unspecified Complete Blood Count Auto Diff 08/09/24 I10 - Essential (primary) hypertension, N18.9 - Chronic kidney disease, unspecified Creatinine Urine 08/09/24 I10 - Essential (primary) hypertension, N18.9 - Chronic kidney disease, unspecified Parathyroid Hormone Intact 08/09/24 I10 - Essential (primary) hypertension, N18.9 - Chronic kidney disease, unspecified Vitamin D 25-OH (D2 and D3) 08/09/24 I10 - Essential (primary) hypertension, N18.9 - Chronic kidney disease, unspecified US renal BI 08/09/24 I10 - Essential (primary) hypertension, N18.9 - Chronic kidney disease, unspecified Coding Level of Care Code New Pt Level 5 (00510) Diagnoses CKD (chronic kidney disease) N18.9 HTN (hypertension) I10 Anemia D64.9 BPH w urinary obs/LUTS N40.1; N13.8
== END 2024-08-09 15:28 | disposition home or self-care (01) ==
LOC: HO.HKAM 14:55
PROVIDERS: PCP Internal Medicine; Referring Provider Internal Medicine; Visit Provider Internal Medicine Hypertension Specialist
DX: I12.9 Hypertensive chronic kidney disease with stage 1 through stage 4 chronic kidney disease, or unspecified chronic kidney disease (principal); N18.9 Chronic kidney disease, unspecified; D64.9 Anemia, unspecified; N40.1 Benign prostatic hyperplasia with lower urinary tract symptoms; N13.8 Other obstructive and reflux uropathy
CPT/HCPCS: 99204

== ENCOUNTER → 2024-08-09 14:55 | Outpatient (BNVA) | payer OTHER, SELFPAY | PROVIDERS: PCP Internal Medicine; Referring Provider Internal Medicine; Visit Provider Internal Medicine Hypertension Specialist | DX: I12.9 Hypertensive chronic kidney disease with stage 1 through stage 4 chronic kidney disease, or unspecified chronic kidney disease (principal); N18.9 Chronic kidney disease, unspecified; D63.1 Anemia in chronic kidney disease; N40.1 Benign prostatic hyperplasia with lower urinary tract symptoms; N13.8 Other obstructive and reflux uropathy | CPT/HCPCS: 99202 ==

== ENCOUNTER 2024-08-09 15:33 | Outpatient (REF) | payer OTHER, SELFPAY ==
[2024-08-09 16:00] LABS: MANUAL DIFF FLAG NO
[2024-08-09 16:16] LABS: Appearance Urine Clear; Color Urine Yellow; Glucose Urine UA Negative (Negative); Leukocyte Esterase Urine Negative (Negative); Nitrite Urine Negative (Negative); Specific Gravity - Urine <= 1.005 (1.005-1.025); Urine Blood Negative (Negative); Urine Ketones Negative (Negative); Urine Protein Trace mg/dL (Neg-Trace)
[2024-08-09 16:24] LABS: INTERNATIONAL NORM RATIO 2.8 (0.9-1.1); Prothrombin Time 33.2 SEC (10.9-12.4)
[2024-08-09 16:29] LABS: Basophils Percent Auto 0.2 % (0-2); Eosinophils Absolute Auto 0.3 X10*3/uL (0.0-0.4); Eosinophils Percent Auto 6.2 % (0-4); Hematocrit 26.6 % (42.0-52.0); Hemoglobin 8.3 g/dl (14.0-18.0); Imm Gran Abs Auto 0.01 X10*3/uL (0.00-0.03); Imm Gran Pct Auto 0.2 % (0.0-0.4); Lymphocytes Absolute Auto 0.7 X10*3/uL (1.2-4.9); Mean Corpuscular HGB Conc 31.2 g/dl (31.0-36.0); Mean Corpuscular Hemoglobin 30.5 pg (27.0-33.0); Mean Corpuscular Volume 97.8 fL (80.0-98.0); Mean Platelet Volume 10.4 fL (9.4-12.4); Monocytes Absolute Auto 0.6 X10*3/uL (0.1-1.2); Monocytes Percent Auto 13.5 % (2-11); Neutrophils Absolute Auto 2.5 x10*3/uL (2.0-8.3); Neutrophils Percent Auto 61.9 % (45-73); Platelet Count 118 X10*3/uL (160-400); Red Blood Count 2.72 X10*6/uL (4.60-5.80); Red Cell Distribution Width 14.9 % (11.0-16.0); White Blood Count 4.1 X10*3/uL (4.8-10.8)
[2024-08-09 17:24] LABS: Alanine Aminotransferase 15 U/L (0-40); Albumin Level 3.9 g/dL (3.5-5.0); Alkaline Phosphatase 131 U/L (39-117); Anion Gap 10 (12-20); Aspartate Amino Transferase 17 U/L (5-37); Bilirubin Total 0.8 mg/dL (0.0-1.0); Blood Urea Nitrogen 15 mg/dL (9-16); Calcium 8.6 mg/dL (8.4-10.2); Carbon Dioxide 24 mmol/L (22-29); Chloride 110 mmol/L (96-108); Estimated Glomerular Filt Rate 41; Glucose Random 93 mg/dL (60-115); Potassium 3.9 mmol/L (3.3-5.1); Sodium 140 mmol/L (135-145); Total Protein 6.8 g/dL (6.5-8.0)
[2024-08-09 17:27] LABS: Creatinine Urine 33.37 mg/dL; Total Protein Urine Random 15 mg/dL (<12)
[2024-08-09 17:54] LABS: Parathyroid Hormone Intact 128.2 pg/mL (8.7-77.1)
[2024-08-14 16:48] LABS: Vitamin D 25-OH, D2 <4 ng/mL; Vitamin D 25-OH, D3 49 ng/mL; Vitamin D 25-OH, Total 49 ng/mL (30-100)
== END 2024-08-09 15:34 | disposition home or self-care (01) ==
LOC: HO.HHCL 15:33
PROVIDERS: Internal Medicine; Referring Provider Internal Medicine; Visit Provider Internal Medicine Hypertension Specialist
DX: I12.9 Hypertensive chronic kidney disease with stage 1 through stage 4 chronic kidney disease, or unspecified chronic kidney disease (principal); N18.9 Chronic kidney disease, unspecified; Z79.01 Long term (current) use of anticoagulants
CPT/HCPCS: 36415; 80053; 81003; 82306; 82570; 83970; 84156; 85025; 85610

== ENCOUNTER 2024-08-16 12:57 | Outpatient (AMB) | payer OTHER, SELFPAY ==
[2024-08-16 13:08] LABS: Prothrombin Time Whole Bld POC 26.8 sec (11.1-13.5); ~PT, ~INR - Anti Coag Clinic 2.2 (0.9-1.1)
--- NOTE | 2024-08-16 13:09 | MHC.OFFVISCO ---
Intake Intake Visit Reasons: Anticoagulation Allergies No Known Allergies [No Known Allergies*] Allergy (Verified 08/16/24 13:04) Medication List - Last Reconciled 08/16/24 by Neena Boyce RN amlodipine 5 mg PO DAILY aspirin 81 mg PO DAILY atorvastatin 80 mg PO BEDTIME cholecalciferol (vitamin D3) 25 mcg PO DAILY dorzolamide-timolol 22.3-6.8 mg/mL 22.3 drps ophthalmic (eye) BID ferrous sulfate (FeroSul) 1 tab PO DAILY furosemide 20 mg PO BID lisinopril 40 mg PO DAILY octreotide acetate (Mycapssa) 20 mg PO DAILY terazosin 5 mg PO BEDTIME 90 days travoprost 0.004% 1 drp ophthalmic (eye) BEDTIME warfarin 5 mg See Protocol PO DAILY Nursing Note NO CP,SOB,DIET/MED CHANGES,FALLS OR SX OF BLEEDING. CONTINUE PRESENT DOSE AND FOLLOW-UP IN 4 WEEKS. GOOD UNDERSTANDING OF DOSING INSTR. Anti-Coag Initial Assessment Social Hx Patient Tobacco Use Status: Former Tobacco user Tobacco use type: Cigarette alcohol intake: former Alcohol intake frequency: does not drink Coding Level of Care Code Est Patient Level 1 Diagnoses Current use of anticoagulant therapy Z79.01 Assessment & Plan Assessment & Plan (1) Current use of anticoagulant therapy: Comment: warfarin-Otto Margarette- need to confirm ok to stop 5 days prior to colonoscopy-unable to send note through expanse Patient aware this must be confirmed, there were no major barriers to understanding identified Code(s): Z79.01 - intermediate (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
== END 2024-08-16 13:12 | disposition home or self-care (01) ==
LOC: HO.ACS 12:57
PROVIDERS: PCP Internal Medicine; Visit Provider Internal Medicine
DX: Z79.01 Long term (current) use of anticoagulants (principal)

== ENCOUNTER → 2024-08-16 12:57 | Outpatient (BNVA) | payer OTHER, SELFPAY | PROVIDERS: PCP Internal Medicine; Visit Provider Internal Medicine | DX: I48.0 Paroxysmal atrial fibrillation (principal); Z79.01 Long term (current) use of anticoagulants; Z51.81 Encounter for therapeutic drug level monitoring | CPT/HCPCS: 85610; 99211 ==

== ENCOUNTER 2024-08-18 13:17 | Outpatient (REF) | payer OTHER, SELFPAY ==
--- NOTE | ~2024-08-18 | US_ITS ---
EXAMINATION: US RETROPERITONEAL LIMITED (RENAL ONLY) CLINICAL INFORMATION: Essential hypertension, chronic kidney disease. COMPARISON: US abdomen on 07/04/24 TECHNIQUE: Real-time imaging of the kidneys. FINDINGS: RIGHT KIDNEY: 9.7 x 4.2 x 4.0 cm (SAG x AP x TRV). The kidney is normal in size, contour, and echogenicity. Renal cortical thickness is normal. No calculi or focal parenchymal lesions. No hydronephrosis. LEFT KIDNEY: 10.0 x 5.1 x 4.3 cm (SAG x AP x TRV). The kidney is normal in size, contour, and echogenicity. Renal cortical thickness is normal. No calculi or focal parenchymal lesions. No hydronephrosis. Mid pole simple cyst does not require follow up. US/US renal BI IMPRESSION: Unremarkable renal ultrasound. Electronically signed by: Bernarda Bess MD 08/18/2024 06:38 PM EDT
== END 2024-08-18 13:18 | disposition home or self-care (01) ==
LOC: HO.US 13:17
PROVIDERS: PCP Internal Medicine; Visit Provider Internal Medicine Hypertension Specialist
DX: I12.9 Hypertensive chronic kidney disease with stage 1 through stage 4 chronic kidney disease, or unspecified chronic kidney disease (principal); N18.9 Chronic kidney disease, unspecified
CPT/HCPCS: 76775

== ENCOUNTER 2024-09-13 12:56 | Outpatient (AMB) | payer OTHER, SELFPAY ==
[2024-09-13 13:00] LABS: Prothrombin Time Whole Bld POC 20.8 sec (11.1-13.5); ~PT, ~INR - Anti Coag Clinic 1.7 (0.9-1.1)
--- NOTE | 2024-09-13 13:03 | MHC.OFFVISCO ---
Intake Intake Visit Reasons: Anticoagulation Allergies No Known Allergies [No Known Allergies*] Allergy (Verified 09/13/24 12:56) Medication List - Last Reconciled 09/13/24 by Sandie Doran RN amlodipine 5 mg PO DAILY aspirin 81 mg PO DAILY atorvastatin 80 mg PO BEDTIME cholecalciferol (vitamin D3) 25 mcg PO DAILY dorzolamide-timolol 22.3-6.8 mg/mL 22.3 drps ophthalmic (eye) BID ferrous sulfate (FeroSul) 1 tab PO DAILY furosemide 20 mg PO BID lisinopril 40 mg PO DAILY octreotide acetate (Mycapssa) 20 mg PO DAILY terazosin 5 mg PO BEDTIME 90 days travoprost 0.004% 1 drp ophthalmic (eye) BEDTIME warfarin 5 mg See Protocol PO DAILY Nursing Note Amb to ACS feeling well Medications and supplements reviewed No changes in health, diet, medications, or supplements, Denies any signs and symptoms of bleeding, bruising, or clotting. Bleeding, bruising, clotting discussed INR: 1.7 denies any missed doses, sts I guess I had a lot of greens Dose: increase dose today to 7.5mg (vs 5 mg) then resume usual dosing tomorrow no greens today or tomorrow then eat a healthy balanced diet F/U INR: 2 weeks Patient verbalizes understanding of instructions given Anti-Coag Initial Assessment Social Hx Patient Tobacco Use Status: Former Tobacco user Tobacco use type: Cigarette alcohol intake: former Alcohol intake frequency: does not drink Coding Level of Care Code Est Patient Level 1 Diagnoses Current use of anticoagulant therapy Z79.01 Time Spent (min) 15 Assessment & Plan Assessment & Plan (1) Current use of anticoagulant therapy: Comment: warfarin-Fabiolaun Margarette- need to confirm ok to stop 5 days prior to colonoscopy-unable to send note through expanse Patient aware this must be confirmed, there were no major barriers to understanding identified Code(s): 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
== END 2024-09-13 13:08 | disposition home or self-care (01) ==
LOC: HO.ACS 12:56
PROVIDERS: PCP Internal Medicine; Visit Provider Internal Medicine
DX: Z79.01 Long term (current) use of anticoagulants (principal)

== ENCOUNTER → 2024-09-13 12:56 | Outpatient (BNVA) | payer OTHER, SELFPAY | PROVIDERS: PCP Internal Medicine; Visit Provider Internal Medicine | DX: I48.0 Paroxysmal atrial fibrillation (principal); Z79.01 Long term (current) use of anticoagulants; Z51.81 Encounter for therapeutic drug level monitoring | CPT/HCPCS: 85610; 99211 ==

== ENCOUNTER 2024-09-25 08:08 | Outpatient (REF) | payer OTHER, SELFPAY ==
[2024-09-25 12:06] LABS: Anion Gap 12 (12-20); Blood Urea Nitrogen 25 mg/dL (9-16); Calcium 8.9 mg/dL (8.4-10.2); Carbon Dioxide 23 mmol/L (22-29); Chloride 108 mmol/L (96-108); Estimated Glomerular Filt Rate 42; Glucose Random 79 mg/dL (60-115); Potassium 3.9 mmol/L (3.3-5.1); Sodium 139 mmol/L (135-145)
[2024-09-25 12:29] LABS: B Type Natriuretic Peptide 446 pg/mL (<100)
== END 2024-09-25 08:09 | disposition home or self-care (01) ==
LOC: HO.HHCL 08:08
PROVIDERS: Visit Provider Internal Medicine Cardiovascular Disease
DX: I50.9 Heart failure, unspecified (principal)
CPT/HCPCS: 36415; 80048; 83880

== ENCOUNTER 2024-09-27 13:52 | Outpatient (AMB) | payer OTHER, SELFPAY ==
--- NOTE | 2024-09-27 14:01 | MHC.OFFVISCO ---
Intake Intake Visit Reasons: Anticoagulation Allergies No Known Allergies [No Known Allergies*] Allergy (Verified 09/27/24 13:57) Medication List - Last Reconciled 09/27/24 by Joyce Garcia RN amlodipine 5 mg PO DAILY aspirin 81 mg PO DAILY atorvastatin 80 mg PO BEDTIME cholecalciferol (vitamin D3) 25 mcg PO DAILY dorzolamide-timolol 22.3-6.8 mg/mL 22.3 drps ophthalmic (eye) BID ferrous sulfate (FeroSul) 1 tab PO DAILY furosemide 20 mg PO BID lisinopril 40 mg PO DAILY octreotide acetate (Mycapssa) 20 mg PO DAILY terazosin 5 mg PO BEDTIME 90 days travoprost 0.004% 1 drp ophthalmic (eye) BEDTIME warfarin 5 mg See Protocol PO DAILY Nursing Note INR: 2.3 in therapeutic range Medications and supplements reviewed- no changes No changes in health, diet, medications, or supplements, Denies any signs and symptoms of bleeding or bruising or clotting. Bleeding, bruising, clotting discussed Nutritional guidance given Dose: 5mg x 3, 2.5mg x 4 F/U INR: pt req 3 weeks Patient verbalizes understanding of instructions given Anti-Coag Initial Assessment Social Hx Patient Tobacco Use Status: Former Tobacco user Tobacco use type: Cigarette alcohol intake: former Alcohol intake frequency: does not drink Coding Level of Care Code Est Patient Level 1 Diagnoses Current use of anticoagulant therapy Z79.01 Results AMB INR Fingerstick AMB INR Fingerstick 2.3 Last Edit by Joyce Garcia RN on 09/27/24 14:03 interface delay Assessment & Plan Assessment & Plan (1) Current use of anticoagulant therapy: Comment: warfarin-Otto Margarette- need to confirm ok to stop 5 days prior to colonoscopy-unable to send note through expanse Patient aware this must be confirmed, there were no major barriers to understanding identified 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
[2024-09-28 09:30] LABS: Prothrombin Time Whole Bld POC 28.2 sec (11.1-13.5); ~PT, ~INR - Anti Coag Clinic 2.3 (0.9-1.1)
== END 2024-09-27 14:06 | disposition home or self-care (01) ==
LOC: HO.ACS 13:52
PROVIDERS: PCP Internal Medicine; Visit Provider Internal Medicine
DX: Z79.01 Long term (current) use of anticoagulants (principal)

== ENCOUNTER → 2024-09-27 13:52 | Outpatient (BNVA) | payer OTHER, SELFPAY | PROVIDERS: PCP Internal Medicine; Visit Provider Internal Medicine | DX: I48.0 Paroxysmal atrial fibrillation (principal); Z79.01 Long term (current) use of anticoagulants; Z51.81 Encounter for therapeutic drug level monitoring | CPT/HCPCS: 85610; 99211 ==

== ENCOUNTER 2024-10-17 14:13 | Outpatient (AMB) | payer OTHER, SELFPAY ==
--- NOTE | 2024-10-17 14:32 | MHC.OFFVISCO ---
Intake Intake Visit Reasons: Anticoagulation Allergies No Known Allergies [No Known Allergies*] Allergy (Verified 10/17/24 14:17) Medication List - Last Reconciled 10/17/24 by Sandie Doran RN amlodipine 5 mg PO DAILY aspirin 81 mg PO DAILY atorvastatin 80 mg PO BEDTIME cholecalciferol (vitamin D3) 25 mcg PO DAILY dorzolamide-timolol 22.3-6.8 mg/mL 22.3 drps ophthalmic (eye) BID ferrous sulfate (FeroSul) 1 tab PO DAILY furosemide 20 mg PO BID iron sucrose (Venofer) 200 mg IV Q3D lisinopril 40 mg PO DAILY octreotide acetate (Mycapssa) 20 mg PO DAILY terazosin 5 mg PO BEDTIME 90 days travoprost 0.004% 1 drp ophthalmic (eye) BEDTIME warfarin 5 mg See Protocol PO DAILY Nursing Note Amb to ACS feeling well Medications and supplements reviewed No changes in health, diet, medications, or supplements, PT has been receiving Venofer IV (iron treatment) EMAR updated Denies any signs and symptoms of bleeding or bruising or clotting. Bleeding, bruising, clotting discussed INR 1.7 below therapeutic range, denies any missed doses (micromedex no warfarin interaction with Venofer) Dose: Increase warfarin today to 5mg vs 2.5 and increase weekly from 5mg x days and 2.5mg x 4 days to 5mg x 4 days and 2.5mg x 3 days No greens today or tomorrow then eat a balanced diet F/U INR: 10/27 Patient verbalizes understanding of instructions given Anti-Coag Initial Assessment Social Hx Patient Tobacco Use Status: Former Tobacco user Tobacco use type: Cigarette alcohol intake: former Alcohol intake frequency: does not drink Coding Level of Care Code Est Patient Level 1 Diagnoses Current use of anticoagulant therapy Z79.01 Time Spent (min) 15 Results AMB INR Fingerstick AMB INR Fingerstick 1.7 Last Edit by Sandie Doran RN on 10/17/24 14:29 interface failure Assessment & Plan Assessment & Plan (1) Current use of anticoagulant therapy: Comment: warfarin-Brittanieyun Margarette- need to confirm ok to stop 5 days prior to colonoscopy-unable to send note through expanse Patient aware this must be confirmed, there were no major barriers to understanding identified Code(s): Z79.01 - care home (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
[2024-10-17 15:13] LABS: Prothrombin Time Whole Bld POC 19.9 sec (11.1-13.5); ~PT, ~INR - Anti Coag Clinic 1.7 (0.9-1.1)
== END 2024-10-17 14:58 | disposition home or self-care (01) ==
LOC: HO.ACS 14:13
PROVIDERS: PCP Internal Medicine; Visit Provider Internal Medicine
DX: Z79.01 Long term (current) use of anticoagulants (principal)

== ENCOUNTER → 2024-10-17 14:13 | Outpatient (BNVA) | payer OTHER, SELFPAY | PROVIDERS: PCP Internal Medicine; Visit Provider Internal Medicine | DX: I48.0 Paroxysmal atrial fibrillation (principal); Z79.01 Long term (current) use of anticoagulants; Z51.81 Encounter for therapeutic drug level monitoring | CPT/HCPCS: 85610; 99211 ==

== ENCOUNTER 2024-10-18 13:00 | Outpatient (RCR) | payer OTHER, SELFPAY ==
[2024-09-28 12:53] VITALS: BP 153/54; PULSE 57; RESP 18; TEMP 36.5
[2024-09-28] MEDS: Iron Sucrose Complex 200 MG/10 ML VIAL IVPUSH (13:11)
[2024-10-02 13:05] VITALS: BP 163/52; PULSE 54; RESP 16; TEMP 37.2; O2SAT 100
[2024-10-02] MEDS: Iron Sucrose Complex 200 MG/10 ML VIAL IVPUSH (13:09)
[2024-10-11 12:54] VITALS: BP 167/62; PULSE 53; RESP 16; TEMP 36.1; O2SAT 99
[2024-10-11] MEDS: Iron Sucrose Complex 200 MG/10 ML VIAL IVPUSH (12:59)
[2024-10-18 12:55] VITALS: BP 150/59; PULSE 57; RESP 16; TEMP 36.9; O2SAT 100
[2024-10-18] MEDS: Iron Sucrose Complex 200 MG/10 ML VIAL IVPUSH (13:05)
[2024-10-18 13:11] LABS: Hematocrit 28.9 % (42.0-52.0); Hemoglobin 9.5 g/dl (14.0-18.0); Mean Corpuscular HGB Conc 32.9 g/dl (31.0-36.0); Mean Corpuscular Volume 94.4 fL (80.0-98.0); Mean Platelet Volume 9.7 fL (9.4-12.4); Platelet Count 114 X10*3/uL (160-400); Red Blood Count 3.06 X10*6/uL (4.60-5.80); Red Cell Distribution Width 15.2 % (11.0-16.0); White Blood Count 3.7 X10*3/uL (4.8-10.8)
[2024-10-18 13:45] LABS: Ferritin 312 ng/mL (20-250)
== END 2024-10-18 13:12 | disposition home or self-care (01) ==
LOC: HO.INF 13:00
PROVIDERS: Visit Provider Internal Medicine Medical Oncology
DX: D50.9 Iron deficiency anemia, unspecified (principal)
CPT/HCPCS: 36415; 82728; 85027; 96374; J1756

== ENCOUNTER 2024-10-26 13:11 | Outpatient (AMB) | payer OTHER, SELFPAY ==
--- NOTE | 2024-10-26 13:48 | A.OFFVIS_ITS ---
Intake Visit Reasons: 6 month F/U Intake Note: Patient presents for 6 month follow up Allergies No Known Allergies [No Known Allergies*] Allergy (Verified 10/26/24 13:52) HPI Comments Details: 79 y/o male patient with medical hx of Afib and HTN presents for new in-person visit for sleep apnea. 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 He denies morning headaches, constipation and or mood changes. He denies memory deficits. He has Glaucoma and had cataract surgery, will f/u with ENT re: Glaucoma as the pressures are checked Q2 months. He feels tired during daytime, takes daily nap. Encouraged patient to use CPAP daily, he gets anxious when he sees the red / green faces on machine. Discussed changing the phone settings to silence reminders as he uses the machine daily but not reaching milestone of 4 hours. Current usage tends to be 3hours and 59 min, since he gets uncomfortable with the pressures and leaks. He has been travelling for the holidays and goes to [employer] [facility]/ forgets to put it on. His diet is good, lives alone, independent with ADLs, has [employer]UV[employer] JUDGE come in weekly to help with cleaning. He cleans the mask, tubing, and changes the filters as needed. [facility] Medical History Atrial fibrillation Tubular adenoma Dyslipidemia HTN (hypertension) Surgical History Hx of bilateral cataract extraction Hx of colonoscopy History of esophagogastroduodenoscopy (EGD) Family History Father Throat cancer Brother Prostate cancer Asthma Sister Hypertension Diabetes Mother Hypertension Social History Household Members: None Housing: Apartment Are you a primary care analyst to a significant other at home: No Do you presently have visiting nurse or other home services: Yes (every 6 months) Alcohol intake: former Patient Tobacco Use Status: Former Tobacco user Tobacco use type: Cigarette service: No Current occupational status: retired Review of Systems Const All systems reviewed & are unremarkable except as noted in HPI and below Physical Exam Const General: cooperative, comfortable and no acute distress Nutritional Appearance: average body habitus Orientation/consciousness: patient oriented x3 Eyes Pupils: Equal, round and reactive pupils present Neck Neck: Yes full ROM Resp Effort & Inspection: normal respiratory effort and able to speak in complete sentences Neuro General: patient oriented x3 and moves all extremities Cranial nerves: Yes CN's II-XII intact bilaterally, Yes Facial sensation intact/muscles of mastication intact, Yes Equal, round and reactive pupils present, Yes Normal accommodation reflex present, Yes Bilaterally intact EOM present, Yes Normal facial strength present, Yes Midline tongue present, Yes Ability to bilaterally rotate head present (Pain on rotation of the head to the L.) and Yes Ability to bilaterally elevate shoulders present Motor exam (neuro): 5/5 motor strength present throughout and Normal motor muscle tone present throughout Deep tendon reflexes (DTR's): Right triceps reflex intensity grade: 2+, Left triceps reflex intensity grade: 2+, Rt Biceps (C5, C6): 2+, Left biceps reflex intensity grade: 2+, Right brachioradialis reflex intensity grade: 2+, Left brachioradialis reflex intensity grade: 2+, Right patellar reflex intensity grade: 2+ and Left patellar reflex intensity grade: 2+ Coordination: [id number] test normal Results Reviewed Results Reviewed: CPAP Compliance Report 07/28/2024- 10/25/2024 >4 hours 57 days = 63% Avergae usage days = 3 hours and 59 minutes APAP therapy [id number] Leaks 19.8 - 58.4 AHI 3.3 Assessment & Plan Assessment & Plan (1) Mild obstructive sleep apnea: Code(s): G47.33 - Obstructive sleep apnea (adult) (pediatric) Category: Medical (2) Daytime sleepiness: Code(s): R40.0 - Somnolence Category: Medical (3) HTN (hypertension): Code(s): I10 - Essential (primary) hypertension Category: Medical Qualifiers: Hypertension type: unspecified Qualified Code(s): I10 - Essential (primary) hypertension Plan -Patient advised to get at least 7-8 hours of sleep per night with APAP on. -Going to bed at a scheduled time and waking up at a set scheduled time, helps to regulate the (sleep, body temperature hormone release) - balances the natural circadian rhythm. -Cool, dark environment with soft music, no electronic devices, sets the environment optimizing sleep. -Daily exercise, night time yoga, soft music, diffusing essential oils can help. -Limit caffeine, and fluids to four hours prior to bed. - CPAP/ APAP Titration of pressures, difficulty with mask, as leaks are 19.8 - 58.4 -Call [facility] adjust time on machine and silence settings until patient is more comfortable with settings. -Follow up in 4 months or call the office sooner if you have any concerns. Coding Level of Care Code Est Pt Level 3 (85900) Diagnoses Mild obstructive sleep apnea G47.33 Daytime sleepiness R40.0 Hypertension, unspecified type I10 Hypertension type: unspecified Time Spent (min) 30 Comment baseline needs improvement
== END 2024-10-26 14:26 | disposition home or self-care (01) ==
PROVIDERS: Absent Provider Physician Assistant Medical; PCP Internal Medicine; Visit Provider Nurse Practitioner Family
DX: G47.33 Obstructive sleep apnea (adult) (pediatric) (principal); R40.0 Somnolence; I10 Essential (primary) hypertension
CPT/HCPCS: 99213

== ENCOUNTER → 2024-10-26 13:11 | Outpatient (BNVA) | payer OTHER, SELFPAY | PROVIDERS: Absent Provider Physician Assistant Medical; PCP Internal Medicine; Visit Provider Nurse Practitioner Family | DX: I48.91 Unspecified atrial fibrillation (principal); I10 Essential (primary) hypertension; G47.33 Obstructive sleep apnea (adult) (pediatric); R40.0 Somnolence | CPT/HCPCS: 99212 ==

== ENCOUNTER 2024-10-27 14:03 | Outpatient (AMB) | payer OTHER, SELFPAY ==
[2024-10-27 14:09] LABS: Prothrombin Time Whole Bld POC 21.9 sec (11.1-13.5); ~PT, ~INR - Anti Coag Clinic 1.8 (0.9-1.1)
--- NOTE | 2024-10-27 14:17 | MHC.OFFVISCO ---
Intake Intake Visit Reasons: Anticoagulation Allergies No Known Allergies [No Known Allergies*] Allergy (Verified 10/27/24 14:04) Medication List - Last Reconciled 10/27/24 by Sandie Grider, RN amlodipine 5 mg PO DAILY aspirin 81 mg PO DAILY atorvastatin 80 mg PO BEDTIME cholecalciferol (vitamin D3) 25 mcg PO DAILY dorzolamide-timolol 22.3-6.8 mg/mL 22.3 drps ophthalmic (eye) BID ferrous sulfate (FeroSul) 1 tab PO DAILY furosemide 20 mg PO BID iron sucrose (Venofer) 200 mg IV Q3D lisinopril 40 mg PO DAILY octreotide acetate (Mycapssa) 20 mg PO DAILY terazosin 5 mg PO BEDTIME 90 days travoprost 0.004% 1 drp ophthalmic (eye) BEDTIME warfarin 5 mg See Protocol PO DAILY Nursing Note INR: 1.8?out of therapeutic range of 2-3 Pt denies missed dose. Dosing plan from last visit on 10/17/24 reviewed with pt and he states he followed the plan. Medications and supplements reviewed Patient status: no changes Medications or supplements: no changes Diet: no changes Denies any signs and symptoms of bleeding or clotting or unusual bruising Bleeding, bruising, clotting discussed Nutritional guidance given: to avoid greens karishma today. Dose: increase today's dose to 5mg (2.5mg) then resume 5mg X 4 dyas and 2.5mg X 3 days (Mon, Wed & Fri). F/U INR Date : 11/06/24?? Patient verbalizing understanding of instructions given. 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
== END 2024-10-27 14:21 | disposition home or self-care (01) ==
LOC: HO.ACS 14:03
PROVIDERS: PCP Internal Medicine; Visit Provider Internal Medicine
DX: Z79.01 Long term (current) use of anticoagulants (principal)

== ENCOUNTER → 2024-10-27 14:03 | Outpatient (BNVA) | payer OTHER, SELFPAY | PROVIDERS: PCP Internal Medicine; Visit Provider Internal Medicine | DX: I48.0 Paroxysmal atrial fibrillation (principal); Z79.01 Long term (current) use of anticoagulants; Z51.81 Encounter for therapeutic drug level monitoring | CPT/HCPCS: 85610; 99211 ==

== ENCOUNTER 2024-11-06 12:58 | Outpatient (AMB) | payer OTHER, SELFPAY ==
[2024-11-06 13:11] LABS: Prothrombin Time Whole Bld POC 28.7 sec (11.1-13.5); ~PT, ~INR - Anti Coag Clinic 2.4 (0.9-1.1)
--- NOTE | 2024-11-06 13:15 | MHC.OFFVISCO ---
Intake Intake Visit Reasons: Anticoagulation Allergies No Known Allergies [No Known Allergies*] Allergy (Verified 11/06/24 13:07) Medication List - Last Reconciled 11/06/24 by Sandie Grider, RN amlodipine 5 mg PO DAILY aspirin 81 mg PO DAILY atorvastatin 80 mg PO BEDTIME cholecalciferol (vitamin D3) 25 mcg PO DAILY dorzolamide-timolol 22.3-6.8 mg/mL 22.3 drps ophthalmic (eye) BID ferrous sulfate (FeroSul) 1 tab PO DAILY furosemide 20 mg PO BID iron sucrose (Venofer) 200 mg IV Q3D lisinopril 40 mg PO DAILY octreotide acetate (Mycapssa) 20 mg PO DAILY terazosin 5 mg PO BEDTIME 90 days travoprost 0.004% 1 drp ophthalmic (eye) BEDTIME warfarin 5 mg See Protocol PO DAILY Nursing Note INR: 2.4 in therapeutic range of 2-3 Medications and supplements reviewed No changes in health, diet, medications, or supplements, Denies any signs and symptoms of bleeding or bruising or clotting. Bleeding, bruising, clotting discussed Nutritional guidance given Dose: 5mg X 4 days and 2.5mg X 3 days (Mon, Wed & Fri) F/U INR: 3 weeks at pt request, preferred 2 weeks Patient verbalizes understanding of instructions given Anti-Coag Initial Assessment Social Hx Patient Tobacco Use Status: Former Tobacco user Tobacco use type: Cigarette alcohol intake: former Alcohol intake frequency: does not drink Coding Level of Care Code Est Patient Level 1 Diagnoses Current use of anticoagulant therapy Z79.01 Assessment & Plan Assessment & Plan (1) Current use of anticoagulant therapy: Comment: warfarin-Otto Pfeiffer- need to confirm ok to stop 5 days prior to colonoscopy-unable to send note through expanse Patient aware this must be confirmed, there were no major barriers to understanding identified 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
== END 2024-11-06 13:21 | disposition home or self-care (01) ==
LOC: HO.ACS 12:58
PROVIDERS: PCP Internal Medicine; Visit Provider Internal Medicine
DX: Z79.01 Long term (current) use of anticoagulants (principal)

== ENCOUNTER → 2024-11-06 12:58 | Outpatient (BNVA) | payer OTHER, SELFPAY | PROVIDERS: PCP Internal Medicine; Visit Provider Internal Medicine | DX: I48.0 Paroxysmal atrial fibrillation (principal); Z79.01 Long term (current) use of anticoagulants; Z51.81 Encounter for therapeutic drug level monitoring | CPT/HCPCS: 85610; 99211 ==

== ENCOUNTER 2024-11-20 09:51 | Outpatient (AMB) | payer OTHER, SELFPAY ==
--- NOTE | 2024-11-20 09:52 | MHC.OFFVIS ---
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 Name: Mary [id number] Allergies No Known Allergies [No Known Allergies*] Allergy (Verified 11/06/24 13:07) HPI HPI 6 month follow up: Details: 79 year old [place]i-speaking male with hypertension, kidney disease, hyperlipidemia, right carotid artery occlusion, cystitis, BPH, history of colon polyps and on coumadin for a-fib as well as aspirin who I am seeing for follow up of ENRIQUE, Patient Had admission for ENRIQUE and endoscopies incl VCE 03/2021 UA 03/2021---neg for blood Last EGd/colonoscopy: 03/2021--- diverticulosis, hemorrhoids, bx neg for celiac and enteropathy but pos for H pylori Rx with triple therapy VCE: 03/2021-- nml, no active bleeding seen Seeing Dr Wills who is arranging periodic blood transfusions and iron transfusions. Patient has had other endoscopies in past for ENRIQUE without any obvious etiology. 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 VITAL SIGNS:see workflow HEENT: Nonicteric sclerae, PERRLA, EOMI. Oropharynx clear. Moist mucous membranes. Conjunctivae appear well perfused. No thyroid mass. CHEST: Chest wall is nontender. HEART: Regular rate and rhythm with diastolic murmur at left sternal edge LUNGS: Clear to auscultation bilaterally. ABDOMEN: Soft, positive bowel sounds, nontender, no organomegaly.no flank tenderness SKIN: No rash, no excessive bruising, petechiae, or purpura. NEUROLOGIC: Cranial nerves II-XII intact without motor/sensory deficit. Psych--nml A/P Occult obscure GI blood loss, on aspirin and coumadin, prob AVM or mucosal bleeding--no treatable lesion found thus far--PO octreotide was denied by insurance and he did not wish to inject himself in the past PLAN: 1 with Iron replacement prn, PFSH Medical History Atrial fibrillation Tubular adenoma Dyslipidemia HTN (hypertension) Surgical History Hx of bilateral cataract extraction Hx of colonoscopy History of esophagogastroduodenoscopy (EGD) Family History Father Throat cancer Brother Prostate cancer Asthma Sister Hypertension Diabetes Mother Hypertension Social History Household Members: None Housing: Apartment Are you a primary career technical education teacher to a significant other at home: No Do you presently have visiting nurse or other home services: Yes (every 6 months) Alcohol intake: former Patient Tobacco Use Status: Former Tobacco user Tobacco use type: Cigarette service: No Current occupational status: retired Physical Exam Vital Signs: Last Vital Signs Pulse 48 L 11/20/24 09:55 BP 141/52 H 11/20/24 09:55 BMI result Body Mass Index 30.6 Assessment & Plan Assessment & Plan (1) Iron deficiency anemia: Comment: Chronic iron deficiency anemia Code(s): D50.9 - Iron deficiency anemia, unspecified Category: Medical Plan: see above Coding Level of Care Code Est Pt Level 3 (34847) Diagnoses Iron deficiency anemia D50.9
[2024-11-20 09:55] VITALS: BP 141/52; PULSE 48; BMI 30.6
== END 2024-11-20 10:12 | disposition home or self-care (01) ==
PROVIDERS: PCP Internal Medicine; Visit Provider Internal Medicine Gastroenterology
DX: D50.9 Iron deficiency anemia, unspecified (principal)
CPT/HCPCS: 99213

== ENCOUNTER → 2024-11-20 09:51 | Outpatient (BNVA) | payer OTHER, SELFPAY | PROVIDERS: PCP Internal Medicine; Visit Provider Internal Medicine Gastroenterology | DX: D50.9 Iron deficiency anemia, unspecified (principal) | CPT/HCPCS: 99212 ==

== ENCOUNTER 2024-11-29 12:57 | Outpatient (AMB) | payer OTHER, SELFPAY ==
--- NOTE | 2024-11-29 13:08 | MHC.OFFVISCO ---
Intake Intake Visit Reasons: Anticoagulation Allergies No Known Allergies [No Known Allergies*] Allergy (Verified 11/29/24 13:04) Medication List - Last Reconciled 11/29/24 by Joyce Garcia RN amlodipine 5 mg PO DAILY aspirin 81 mg PO DAILY atorvastatin 80 mg PO BEDTIME cholecalciferol (vitamin D3) 25 mcg PO DAILY dorzolamide-timolol 22.3-6.8 mg/mL 22.3 drps ophthalmic (eye) BID ferrous sulfate (FeroSul) 1 tab PO DAILY furosemide 40 mg PO DAILY iron sucrose (Venofer) 200 mg IV Q3D lisinopril 40 mg PO DAILY octreotide acetate (Mycapssa) 20 mg PO DAILY travoprost 0.004% 1 drp ophthalmic (eye) BEDTIME warfarin 5 mg See Protocol PO DAILY Nursing Note INR: 2.0- in therapeutic range of 2-3 Medications and supplements reviewed- no changes No changes in health, diet, medications, or supplements, Denies any signs and symptoms of bleeding or bruising or clotting. Bleeding, bruising, clotting discussed Nutritional guidance given - no greens for 2 days Dose: 2.5mg x 3, 5mg x 4 F/U INR: pt req 3 weeks Patient verbalizes understanding of instructions given Anti-Coag Initial Assessment Social Hx Patient Tobacco Use Status: Former Tobacco user Tobacco use type: Cigarette alcohol intake: former Alcohol intake frequency: does not drink Coding Level of Care Code Est Patient Level 1 Diagnoses Current use of anticoagulant therapy Z79.01 Results AMB INR Fingerstick AMB INR Fingerstick 2.0 Last Edit by Joyce Garcia RN on 11/29/24 13:10 interface delay Assessment & Plan Assessment & Plan (1) Current use of anticoagulant therapy: Comment: warfarin-Otto Margarette- need to confirm ok to stop 5 days prior to colonoscopy-unable to send note through expanse Patient aware this must be confirmed, there were no major barriers to understanding identified 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
[2024-11-29 13:10] LABS: Prothrombin Time Whole Bld POC 24.3 sec (11.1-13.5)
--- OUTSIDE RECORDS SUMMARY | 2024-11-29 14:47 | XMS_ITS | Encounter Summary ---
Author Organization [employer] Address [address] [place] [address] Care Team Providers Care Rn Observation Name Role Phone Pedro Pulliam MD Primary Care Provide r Encounter Details Date Type Department Care Team (Late st Contact Info) Description 11/29/2024 Orders Only GENERIC EXTERNAL DATA DEPARTMENT Provider, Generic External Data Social History Tobacco Use Types Packs/Day Years Used Date Smoking Tobacco: Never Passive Smoke Exposure: Never Smokeless Tobacco: Never Depression Answer Date Recorded Patient Health Questionnaire-9 Score 0 10/17/2024 Patient Health Questionnaire-9 Score 0 10/17/2024 Last PHQ-9: Questionnaire Data Not on file 1 12/18/2023 Housing Stability Answer Date Recorded What is your housing situation today? I have prashant reid 10/17/[address] you li ve. Do you have problems with any of the following? None of the above 10/17/2024 Food Insecurity Answer Date Recorded Within the past 12 months, y ou worried that your food would run out before you got money to buy more: Never True 10/17/2024 Within the past 12 months,th e food you bought just didn't last and you didn't have enough money to get more: Never True 08/2024 Transportation Answer Date Recorded In the past 12 months, has l ack of transportation kept you from medical appts, meetings, work or from getting things needed for daily living? No 10/17/2024 Utilities Answer Date Recorded In the past 12 months, has t he electric, gas, oil or water company threatened to shut off services in your home? No 10/17/2024 Depression Answer Date Recorded Patient Health Questionnaire-2 Score 0 10/17/2024 Internet Access Answer Date Recorded Internet Access Q1 No 10/17/2024 Internet Access Q2 I do not want or need it 10/08 Sex and Gender Information Value Date Recorded Sex Assigned at Male 09/07/2022 10:17 AM EDT Legal Sex Male 10:17 AM EDT Gender Identity Male 09/07/2022 10:17 AM EDT Sexual Orientation Straight 09/07/2022 10 :17 AM EDT documented as of this encounter Plan of Treatment Upcoming Encounters Date Type Department Care Team (Late st Contact Info) Description 01/11/2025 1:15 PM EST Office Visit [facility] [address] [place] [address] Pedro Pulliam MD [address] [place] [phone] documented as of this encounter Procedures Procedure Name Priority Date/Time Associated Diagnosis Comments PROTHROMBIN TIME WHOLE BLD POC Routine 11/29/2024 1:07 PM EST ~PT, ~INR - ANTI COAG CLINIC Routine 11/29/2024 1:07 PM EST documented in this encounter Results * (ABNORMAL) PROTHROMBIN TIME WHOLE BLD POC (11/29/2024 1:07 PM EST) Protime 24.3(H) 11.1 - 13.5 sec [facility] 11/29/2024 1:07 PM EST 11/29/2024 1:10 PM EST us Generic External Data Provider LAB BLOOD ORDERAB LES Final Result [facility] [address] [place] [address] [phone] * (ABNORMAL) ~PT, ~INR - ANTI COAG CLINIC (11/29/2024 1:07 PM EST) Prothrombin Time INR 2.0(H) 0.9 - 1.1 [facility] Comment:METER #: [id number] TERNATIONAL NORMALIZED RATIO (INR) REFERENCE RANGES Reference RangeFor patients not on anticoagulant therapy: 0.9 - 1.1INR ranges for oral anticoagulanttherapy:For prevention and treatment of venous thrombosis and pulmonary embolism: 2.0 - 3.0For acute myocardial infarction with aspirin therapy: 2.0 - 3.0For acute myocardial infarction without aspirin therapy: 3.0 - 4.0For patients with mechanical prosthetic heart valves: 2.5 - 3.5 11/29/2024 1:07 PM EST 11/29/2024 1:10 PM EST us Generic External Data Provider LAB BLOOD ORDERAB LES Final Result [facility] [address] [place] [phone] documented in this encounter Visit Diagnoses Not on filedocumented in this encounter Additional Health Concerns Assessment Noted Time PHQ-9 Depression Total Score: 0 10/17/20 24 1:50 PM EST documented as of this encounter Care Teams Rn Observation Relationship Specialty Start Date End Date Pedro Pulliam MD [address] [place] [phone] PCP - General Internal Medicine 09/10/14 documented as of this encounter
--- OUTSIDE RECORDS SUMMARY | 2024-11-29 14:47 | XMS_ITS | Clinical Summary ---
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 90 tablet 3 4 Active warfarin (Coumadin) 5 MG tabletIndications: Atrial fibrillation, unspecified type (CMS/HCC) TAKE 1 TABLET BY MOUTH EVERY DAY DIRECTED BY [facility]IN [facility]INIC 90 tablet 2 4 Active furosemide (Lasix) 20 MG tabletIndications: Stage 3 chronic kidney disease, unspecified whether stage 3a or 3b CKD (CMS/HCC),Primary hypertension,Nonrh eumatic tricuspid valve regurgitation 1 tab daily 60 tablet 4 Active atorvastatin (Lipitor) 80 MG tablet TAKE 1 TABLET BY MOUTH EVERY DAY AT BEDTIME 90 tablet 4 Active amLODIPine (Norvasc) 5 MG tablet TAKE 1 TABLET BY MOUTH EVERY DAY 90 tablet 4 Active FeroSul 325 (65 Fe) MG tabletIndications: Iron deficiency TAKE 1 TABLET BY MOUTH EVERY DAY 90 tablet 4 Active lisinopril 40 MG tabletIndications: Primary hypertension TAKE 1 TABLET BY MOUTH ONCE DAILY 90 tablet 1 4 Active Active Problems Problem Noted Date Diagnosed Date Nonrheumatic tricuspid valve regurgitation 01/31 Assessment & Plan (02/01/2024 1:33 PM EDT): Under the care of Cardiology, last seen 09/2023 Currently on Furosemide 20 mg po BID Bilateral leg edema 02/01/2024 Assessment & Plan (05/04/2024 2:21 PM EDT): Resolved Last ECHO: Tricuspid regurgitation and Pulm Htn, follows with Cardiology On lasix 40 mg in Am and 20 mg PM 4 months follow up Assessment & Plan (02/01/2024 1:38 PM EDT): 2 + Last ECHO: Tricuspid regurgitation and Pulm Htn, follows with Cardiology On lasix 20 mg po BID Will increase to 40 mg in Am and 20 mg PM 4 weeks follow up Bilateral carpal tunnel syndrome 09/23/2023 Assessment & Plan (09/23/2023 1:13 PM EST): On previous visit pt with c/o left sided neck pain with radiation to his left shoulder after pt had a fall..Initial evaluation was suggestive of radiculitis, ? radiculopathy aggravated by fall. Initial xrays from left shoulder and c-spine showed spondylosis. NCS showed mild to moderate bilateral median neuropathy across the carpal tunnel, no evidence of cervical radiculopathy. pt currently undergoing PT with good results. Preventative health care 09/23/2023 Assessment & Plan (10/17/2024 1:55 PM EST): PSA: 06/27/2024 4.9 under the caer of urology Dr tamez Colonoscopy: Normal : Repeat 03/28 due to a Hx of a Tubular Adenoma, showed diverticulosis no source of bleed Vaccines: Tdap 04/24/2014, Pneumovax 12/2013, PCV 13: 08/22/2015 Flu shot : m111/23/2022 Zoster: 02/26/2015 Assessment & Plan (09/23/2023 1:35 PM EST): VANNESA: declines Colonoscopy: Normal : Repeat 03/28 due to a Hx of a Tubular Adenoma, showed diverticulosis no source of bleed Vaccines: Tdap 04/24/2014, Pneumovax 12/2013, PCV 13: 08/22/2015 Flu shot : m111/23/2022 Zoster: 02/26/2015 CKD (chronic kidney disease), stage III 04/18/20 19 09/15/2023 Assessment & Plan (10/17/2024 1:38 PM EST): Used to be under the care of Nephrology, last seen 08/09/2024 Last BMP Lab Results Component Value Date NA 142 07/31/2024 NA 141 06/27/2024 K 3.9 07/31/2024 K 4.8 06/27/2024 CL 111 (H) 07/31/2024 CL 110 (H) 06/27/2024 BUN 22 (H) 07/31/2024 BUN 19 (H) 06/27/2024 CREATININE 1.61 (H) 07/31/2024 CREATININE 1.66 (H) 06/27/2024 Plan: Continue to follow with Nephrology Assessment & Plan (08/03/2024 2:22 PM EDT): Used to be under the care of Nephrology, lost for follow up Last BMP Lab Results Component Value Date NA 142 07/31/2024 NA 141 06/27/2024 K 3.9 07/31/2024 K 4.8 06/27/2024 CL 111 (H) 07/31/2024 CL 110 (H) 06/27/2024 BUN 22 (H) 07/31/2024 BUN 19 (H) 06/27/2024 CREATININE 1.61 (H) 07/31/2024 CREATININE 1.66 (H) 06/27/2024 Plan: Refer back to Nephrology Assessment & Plan (02/01/2024 1:29 PM EDT): Under the care of Nephrology Assessment & Plan (09/23/2023 1:14 PM EST): Under the care of Nephrology Age-related nuclear cataract of both eyes 08/07/ 2018 09/15/2023 Atrial fibrillation 02/08/2018 09/15/2023 Assessment & Plan (10/17/2024 1:40 PM EST): Pt feels good, no palpitations He is Chadsvasc 3 He is on Coumadin, under the care of the Coumadin Clinic. pt is completely asymptomatic. Pt had a nuclear stress test that was negative Pt has ongoing f/u at the coumadin clinic and cardiology last note from Cardiology 10/03/2024 . Repeat ECHO 08/17/2024 no significant change from previous EF 50-55% Assessment & Plan (08/03/2024 2:29 PM EDT): Pt feels good, no palpitations He is Chadsvasc 3 He is on Coumadin, under the care of the Coumadin Clinic. pt is completely asymptomatic. Pt had a nuclear stress test that was negative Pt has ongoing f/u at the coumadin clinic and cardiology last note from Cardiology 09/14/2023 . Repeat ECHO 08/20/2023 Pt tells me he has scheduled a follow up with him Assessment & Plan (02/01/2024 1:28 PM EDT): Pt feels good, no palpitations He is Chadsvasc 3 He is on Coumadin, under the care of the Coumadin Clinic. pt is completely asymptomatic. Pt had a nuclear stress test that was negative Pt has ongoing f/u at the coumadin clinic and cardiology last note from Cardiology 09/14/2023 . Repeat ECHO 08/20/2023 6 month follow up Assessment & Plan (09/23/2023 1:30 PM EST): Pt feels good, no palpitations He is Chadsvasc 3 He is on Coumadin, under the care of the Coumadin Clinic. pt is completely asymptomatic. Pt had a nuclear stress test that was negative Pt has ongoing f/u at the coumadin clinic and cardiology last note from Cardiology 09/14/2023 . Repeat ECHO 08/20/2023 6 month follow up Benign prostatic hyperplasia without lower urinary tract symptoms 11/26/2015 09/15/2023 Assessment & Plan (10/17/2024 1:54 PM EST): Under the care of Urology Dr Carter 07/07/2024 Hx of Benign prostatic hyperplasia Hx of elevated PSA He has a Hx of neg TRUS bx as well Last PSA 06/27/2024 4.9 Assessment & Plan (08/03/2024 2:16 PM EDT): Pt evaluated by Urology Dr Carter 07/07/2024 Hx of Benign prostatic hyperplasia Hx of elevated PSA He has a Hx of neg TRUS bx as well Assessment & Plan (09/23/2023 1:32 PM EST): Pt evaluated by Urology Dr Carter 06/2023 Hx of Benign prostatic hyperplasia Hx of elevated PSA He has a Hx of neg TRUS bx as well Tubular adenoma of colon 08/13/2015 023 Assessment & Plan (09/23/2023 1:12 PM EST): Colonoscopy 07/23/2015 revealed this Repeat colonoscopy in 03/2021 showed diverticulosis only by Dr connors at [facility] Mixed hyperlipidemia 08/13/2015 09/15/2023 Assessment & Plan (02/01/2024 1:27 PM EDT): Pt here for a f/u Most recent lipid profile from: 10/12/2023 C Component Ref Range & Units 3 mo ago (10/12/23) 2 yr ago (12/24/21) 2 yr ago (03/14/21) 3 yr ago (05/21/20) Triglycerides <150 mg/dL 40 38 39 31 Comment: Desirable Triglyceride: less than 150 mg/dLBorderline High Triglyceride 150-199 mg/dLHigh Triglyceride: 200-499 mg/dLVery High Triglyceride: greater than or equal to 5OO mg/dL Cholesterol <200 mg/dL 94 Comment: Desirable Cholesterol: less than 200 mg/dLBorderline High Cholesterol: 200-239 mg/dLHigh Cholesterol: greater than 239 mg/dL LDL Cholesterol Calculated <100 mg/dL 62 Comment: Desirable LDL: less than 100 mg/dLNear Optimal/Above Optimal LDL: 110- 129 mg/dLBorderline High LDL: 130-159 mg/dLHigh LDL: 160-189 mg/dLVery High LDL: greater than or equal to 190 mg/dL HDL Cholesterol >40 mg/dL 24 Low Currently on a regimen of Atorvastatin 80mg po qhs Lipids at target advised to try to adhere to a low cholesterol diet, counseled and educated about diet and exercise Assessment & Plan (09/23/2023 1:11 PM EST): Pt here for a f/u Most recent lipid profile from: 03/14/2021 shows a total cholesterol of: 80 triglycerides of: 39 HDL of: 24 and LDL of: 45 Currently on a regimen of Atorvastatin 80mg po qhs Lipids at target Will repeat Lipid profile advised to try to adhere to a low cholesterol diet, counseled and educated about diet and exercise Right carotid artery occlusion 02/26/2015 1 11/15/2022 Assessment & Plan (09/23/2023 1:33 PM EST): Pt with right internal carotid artery occlusion confirmed by MRA of neck on 03/24/2012. Evaluated in the past by his vascular surgeon at [facility] (Dr Lind) whose recommendation was conservative treatment, he saw NO role for any type of surgical intervention. He recommended to repeat the scan in 1 year and continue to take Asa 81 mg po daily. Pt was last seen by his splicing technician at [facility] 09/14/2023 recommended repeat US and ECHO and 6 month follow up He is on Aspirin started by their office Last Carotid US on record from 02/11/2023 Hypertension 04/21/2012 09/15/2023 Assessment & Plan (10/17/2024 1:41 PM EST): Pt here for a f/u BP stable He is on a regimen of: Norvasc 5 mg daily, Lisinopril 40 mg po daily and lasix 20 mg daily prescribed by Director Of Restaurant Operations. I had recently lowered his Lasix due to worsening renal function Pt developed some bilateral ankle edema due to Amlodipine Plan: Continue current regimen Most recent electrolytes, Bun and Creatinine showed worsening Scr/ patient advised to adhere to a low sodium diet, encouraged about medication compliance, counseled about weight loss. 3 month f/u Assessment & Plan (08/03/2024 2:30 PM EDT): Pt here for a f/u BP stable He is on a regimen of: Norvasc 5 mg daily, Lisinopril 40 mg po daily and lasix 20 mg in Am and 20 mg PM prescribed by Director Of Restaurant Operations. I had recently lowered his Lasix due to worsening renal function Pt developed some bilateral ankle edema due to Amlodipine Plan: Decrease Lasix to 20 mg po dailu Most recent electrolytes, Bun and Creatinine showed worsening Scr/ patient advised to adhere to a low sodium diet, encouraged about medication compliance, counseled about weight loss. Referred to Nephrology Repeat BMP in 2 weeks 3 month f/u Assessment & Plan (05/04/2024 2:21 PM EDT): Pt here for a f/u BP controlled He is on a regimen of: Norvasc 5 mg daily, Lisinopril 40 mg po daily and lasix 40 mg in Am and 20 mg PM prescribed by Director Of Restaurant Operations. Pt developed some bilateral ankle edema due to Amlodipine Plan: Continue current regimen Most recent electrolytes, Bun and Creatinine done on: 02/11/2024 within normal limits patient advised to adhere to a low sodium diet, encouraged about medication compliance, counseled about weight loss. 3 month f/u Assessment & Plan (02/01/2024 1:25 PM EDT): Pt here for a f/u BP controlled He is on a regimen of: Norvasc 5 mg daily, Lisinopril 40 mg po daily and Furosemide 20 mg po BID prescribed by Director Of Restaurant Operations. Pt developed some bilateral ankle edema due to Amlodipine Plan: Continue current regimen Most recent electrolytes, Bun and Creatinine done on: 10/12/2023 within normal limits patient advised to adhere to a low sodium diet, encouraged about medication compliance, counseled about weight loss. 3 month f/u Assessment & Plan (09/23/2023 1:09 PM EST): Pt here for a f/u BP controlled He is on a regimen of: Norvasc 5 mg daily, Lisinopril 40 mg po daily and Furosemide 20 mg po BID prescribed by Director Of Restaurant Operations. Pt developed some bilateral ankle edema due to Amlodipine Plan: Continue current regimen Most recent electrolytes, Bun and Creatinine done on: 12/24/2021 SCr 1.25 will repeat patient advised to adhere to a low sodium diet, encouraged about medication compliance, counseled about weight loss. 3 month f/u Gynecomastia 04/21/2012 09/15/2023 Assessment & Plan (05/04/2024 2:17 PM EDT): Mammogram showed: IMPRESSION: -There is moderate to severe RIGHT and moderate LEFT male gynecomastia. -There are subcentimeter simple cysts versus small dilated ducts in the retroareolar region of the RIGHT breast. There are no internal echoes. -There are no suspicious features in either breast. -Recommend clinical management and follow-up. OVERALL ASSESSMENT: Mammography: BI-RADS 2 - Benign Findings Ultrasound: BI-RADS 2 - Benign Findings RECOMMENDATION: 1. Patient should be managed based on the clinical impression. Plan: Breast center referral at [facility] Assessment & Plan (02/01/2024 1:36 PM EDT): Will order a mammogram Anemia 04/21/2012 09/15/2023 Assessment & Plan (10/17/2024 1:42 PM EST): Pt here for a f/u Evaluated by Hematology last seen 09/21/2024 Dr Huynh. Pt has been receiveing PRBCs and IV Iron Pt had a Video Capsule endoscopy in March which revealed: some red spots, erythema in stomach but no active bleeding in stomach or small bowel. Dr huynh's impression was that he had anemia of chronic disease likely related to chronic kidney disease Of note he had a repeat bone marrow exam that did not show any evidence of malignancy. EGD and colonoscopy 03/2021 showed diverticulosis but no source of bleeding. He is on iron supplementation Will continue to follow with Hematology. Assessment & Plan (08/03/2024 2:20 PM EDT): Pt here for a f/u Evaluated by Hematology last seen 06/30/2024 Dr Huynh. Pt has been receiveing PRBCs and IV Iron Pt had a Video Capsule endoscopy in March which revealed: some red spots, erythema in stomach but no active bleeding in stomach or small bowel. Dr huynh's impression was that he had anemia of chronic disease likely related to chronic kidney disease Of note he had a repeat bone marrow exam that did not show any evidence of malignancy. EGD and colonoscopy 03/2021 showed diverticulosis but no source of bleeding. He is on iron supplementation Will continue to follow with Hematology who ordered an US to evaluate his liver and spleen Assessment & Plan (05/04/2024 2:19 PM EDT): Pt here for a f/u Evaluated by Hematology last seen 05/02/2024 Dr Huynh. Pt has been receiveing PRBCs and IV Iron Pt had a Video Capsule endoscopy in March which revealed: some red spots, erythema in stomach but no active bleeding in stomach or small bowel. Dr huynh's impression was that he had anemia of chronic disease likely related to chronic kidney disease Of note he had a bone marrow exam in 06/2005 which revealed mild non specific plasmacytosis but otherwise negative. EGD and colonoscopy 03/2021 showed diverticulosis but no source of bleeding. He is on iron supplementation Pt scheduled for a Bone Marrow exam Assessment & Plan (09/23/2023 1:32 PM EST): Pt here for a f/u Evaluated by Hematology last seen 08/2023 Dr Huynh. Pt has been receiveing PRBCs and IV Iron Pt had a Video Capsule endoscopy in March which revealed: some red spots, erythema in stomach but no active bleeding in stomach or small bowel. Dr huynh's impression was that he had anemia of chronic disease likely related to chronic kidney disease Of note he had a bone marrow exam in 06/2005 which revealed mild non specific plasmacytosis but otherwise negative. EGD and colonoscopy 03/2021 showed diverticulosis but no source of bleeding. He is on iron supplementation Encounters Date Type Department Care Team Description 11/29/2024 Orders Only GENERIC EXTERNAL DATA DEPARTMENT Provider, Generic External Data 11/20/2024 Telephone [facility] [address] [place] [phone] Pedro Pulliam MD follow up needed 11/06/2024 Orders Only GENERIC EXTERNAL DATA DEPARTMENT Provider, Generic External Data 10/27/2024 Orders Only GENERIC EXTERNAL DATA DEPARTMENT Provider, Generic External Data 10/17/2024 2:00 PM EST Office Visit [facility] [address] [place] [address] Pedro Pulliam MD Primary hypertension (Primary Dx); Stage 3b chronic kidney disease (CMS/HCC); Longstanding persistent atrial fibrillation (CMS/HCC); Iron deficiency anemia, unspecified iron deficiency anemia type; Benign prostatic hyperplasia without lower urinary tract symptoms; Preventative health care 10/17/2024 Orders Only GENERIC EXTERNAL DATA DEPARTMENT Provider, Generic External Data 10/17/2024 Travel 10/11/2024 Refill [facility] [address] [place] [address] Pedro Pulliam MD 10/09/2024 Refill [facility] [address] [place] [address] Avis Koenig MD Iron deficiency 09/27/2024 Orders Only GENERIC EXTERNAL DATA DEPARTMENT Provider, Generic External Data 09/18/2024 Telephone [facility] [address] [place] [address] Pedro Pulliam MD Chart Prep 09/13/2024 Orders Only GENERIC EXTERNAL DATA DEPARTMENT Provider, Generic External Data from Last 3 Months Immunizations Name Administration Dates Next Due Influenza High-dose Quadriva lent Preservative Free 09/23/2023,08/07/2021,10/11/2020 Influenza injectable quadriv alent IIV4 with preservative 11/09/2017,09/17/2016,08/13/2015 Influenza injectable quadriv alent preservative free 09/29/2022,08/17/2019,10/11/2018 Influenza, High Dose Seasona l, Preservative Free 08/03/2024 Influenza, IIV3, injectable 10/25/2014, 1 Influenza, Split (incl. vinayak fied surface antigen) 10/02/2013,08/04/2012 Pneumococcal Conjugate PCV 13 08/22/2015 Pneumococcal Polysaccharide PPSV23 01/03/2014 TD (adult), 2 Lf tetanus tox oid, preservative free, adsorbed 05/04/2024,03/31/2004 Tdap 04/24/2014 Zoster, Recombinant 01/08/2020 Zoster, live 02/26/2015 Social History Tobacco Use Types Packs/Day Years Used Date Smoking Tobacco: Never Passive Smoke Exposure: Never Smokeless Tobacco: Never Tobacco Cessation:Counseling Given: Not Answered Depression Answer Date Recorded Patient Health Questionnaire-9 [...] Orientation Straight 09/07/2022 10 :17 AM EDT Last Filed Vital Signs Vital Sign Reading Time Taken Comments Blood Pressure 138/66 10/17/2024 1:49 PM EST Pulse 51 10/17/2024 1:49 PM EST Temperature 36.1 ??C (96.9 ??F) 10/17/2024 1:49 PM ES T Respiratory Rate 20 10/17/2024 1:49 PM EST Oxygen Saturation 98% 10/17/2024 1:49 PM EST Inhaled Oxygen Concentration - - Weight 76.9 kg (169 lb 9.6 oz) 10/17/2024 1:49 P M EST Height 175.3 cm (5' 9 ) 10/17/2024 1:49 PM EST Body Mass Index 25.05 10/17/2024 1:49 PM EST Plan of Treatment Upcoming Encounters Date Type Department Care Team (Late st Contact Info) Description 01/11/2025 1:15 PM EST Office Visit [facility] [address] [place] [address] Pedro Pulliam MD [address] [place] [address] Health Maintenance Due Date Last Done Comments Zoster Vaccines (3 of 3) 03/04/2020 01/08/2020, 02/07 RSV Patients and Patients Aged 60 years or older (1 - 1-dose 75+ series) 2021 COVID-19 Vaccine ( season) 2024 11/11/2021, 03/05/2021, 02/05/2021 Mammogram 04/11/2025 04/11/2024, 04/11/2024 Alcohol/Substance Use Screening 10/17/2025 10/17/2024 Depression Screening 10/17/2025 10/17/2024, 10/17/20 24 SDOH Screening 10/17/2025 10/17/2024 Tobacco Screening 10/17/2025 10/17/2024 Lipid Panel 10/12/2028 10/12/2023, 12/09, 03/14/2021, Additional history exists DTaP/Tdap/Td Vaccines (3 - Td or Tdap) 05/04/2034 05/04/2024, 04/24/2014, 03/31/2004 Pneumococcal Vaccine: 65+ Years Completed 08/22/2015, 01/03/2014 Hepatitis C Screening Completed 12/24/2021 Influenza Vaccine Completed 08/03/2024, , 09/29/2022, Additional history exists HIB Vaccines Aged Out No longer eligi ble based on patient's age to complete this topic HPV Vaccines Aged Out No longer eligi ble based on patient's age to complete this topic Hepatitis A Vaccines Aged Out No long er eligible based on patient's age to complete this topic Hepatitis B Vaccines Aged Out No long er eligible based on patient's age to complete this topic IPV Vaccines Aged Out No longer eligi ble based on patient's age to complete this topic Meningococcal Vaccine Aged Out No milena mendez eligible based on patient's age to complete this topic RSV under 20 months Aged Out No longe r eligible based on patient's age to complete this topic Rotavirus Vaccines Aged Out No longer eligible based on patient's age to complete this topic Procedures Procedure Name Priority Date/Time Associated Diagnosis Comments PROTHROMBIN TIME WHOLE BLD POC Routine 11/29/2024 1:07 PM EST ~PT, ~INR - ANTI COAG CLINIC Routine 11/29/2024 1:07 PM EST PROTHROMBIN TIME WHOLE BLD POC Routine 11/06/2024 1:09 PM EST ~PT, ~INR - ANTI COAG CLINIC Routine 11/06/2024 1:09 PM EST PROTHROMBIN TIME WHOLE BLD POC Routine 10/27/2024 2:06 PM EST ~PT, ~INR - ANTI COAG CLINIC Routine 10/27/2024 2:06 PM EST PROTHROMBIN TIME WHOLE BLD POC Routine 10/17/2024 2:21 PM EST ~PT, ~INR - ANTI COAG CLINIC Routine 10/17/2024 2:21 PM EST PROTHROMBIN TIME WHOLE BLD POC Routine 09/27/2024 2:00 PM EST ~PT, ~INR - ANTI COAG CLINIC Routine 09/27/2024 2:00 PM EST PROTHROMBIN TIME WHOLE BLD POC Routine 09/13/2024 12:59 PM EST ~PT, ~INR - ANTI COAG CLINIC Routine 09/13/2024 12:59 PM EST BI MAMMOGRAM DIAGNOSTIC TOMOSYNTHESIS BILATERAL Routine 04/11/2024 3:15 PM EDT Gynecomastia LIPID PANEL WITH REFLEX TO DIRECT LDL Routine 10/12/2023 8:50 AM EST Mixed hyperlipidemia ZZZ HISTORICAL HEPATITIS C AB W/REFL TO HCV RNA, QN, PCR Routine 12/24/2021 8:24 AM EST from Last 3 Months or Most Recently Relevant to Health Maintenance Results * (ABNORMAL) PROTHROMBIN TIME WHOLE BLD POC (11/29/2024 1:07 PM EST) Only the most recent of6 resultswithin the time period is included. Protime 24.3(H) 11.1 - 13.5 sec [facility] 11/29/2024 1:07 PM EST 11/29/2024 1:10 PM EST us Generic External Data Provider LAB BLOOD ORDERAB LES Final Result Performing Organization Address City/State/[facility] Co de Phone Number [facility] [address] [place] [phone] * (ABNORMAL) ~PT, ~INR - ANTI COAG CLINIC (11/29/2024 1:07 PM EST) Only the most recent of6 resultswithin the time period is included. Prothrombin Time INR 2.0(H) 0.9 - 1.1 [facility] Comment:METER #: [id number] TERNATIONAL NORMALIZED RATIO (INR) REFERENCE RANGES Reference [...] Provider LAB BLOOD ORDERAB LES Final Result Performing Organization Address [facility]/State/ZIP Co de Phone Number [facility] [address] [place] [address] [phone] * BI Mammogram Diagnostic Tomosynthesis Bilateral (04/11/2024 3:15 PM EDT) Anatomical Region Laterality Modality Breast Bilateral Mammography 04/11/2024 3:15 PM EDT Narrative 04/11/2024 4:59 PM EDT ? [facility] ? [address] ?[place] [id number] ? Mammography Report ? Signed ? Patient: Pablo Quinteros,Jamie ?MR#: ?? [id number] ? : 1945 ?Acct:[id number] ? Age/Sex: 79 / M ?ADM Date: 04/11/24 ? Loc: HO.MAMMO ? Attending Dr: Pedro Webber MD ? Ordering Physician: Pedro Webber MD ?Resu ?? lts: 2Benign Findings ? Date of Service: 04/11/24 ?Follow Up: 1 Year From Orig ?? inal Mammogram ? Procedure(s): MM tomosynthesis diagnostic BI ?? Accession Number(s): [id number] ? cc: Pedro Webber MD ? EXAMINATION: ?? MM DIAGNOSTIC DIGITAL BREAST TOMOSYNTHESIS, BILATERAL ?? US BREAST LIMITED, RIGHT ? MAMMOGRAPHY: ?? CLINICAL INFORMATION: ? Right breast tenderness, palpable abnormality x3 months. Gynecomastia. ? COMPARISON: ?? Mammography: None. ? TECHNIQUE: ?? Digital breast tomosynthesis is performed in both the craniocaudal and ?? mediolateral oblique views along with computer-aided detection (CAD). ?? Synthesized 2D images are generated from the tomosynthesis. In ?? addition, a right full-field 3-D ML view was also obtained. ? FINDINGS: ?? There are scattered areas of fibroglandular density (ACR BI-RADS breast ?? composition Category b). ? There is severe right and moderate left breast gynecomastia. ??No ?? definite suspicious mass, area of architectural distortion, or ?? suspicious calcifications are seen in either breast. There is a small ?? lymph node in the axillary tail of the left breast. No suspicious skin ?? or axillary findings. ? ULTRASOUND: ?? CLINICAL INFORMATION: ?? As above. ? COMPARISON: ?? None ? TECHNIQUE: ?? Targeted sonographic evaluation was performed using a high frequency ?? linear transducer. Right breast retroareolar region was targeted. ?? Selected archived documentation. ? FINDINGS: ? RIGHT BREAST: There is moderate to severe development of retroareolar ?? breast tissue consistent with gynecomastia. There are retroareolar ?? simple cystic foci measuring less than a centimeter, either simple ?? cysts or mildly dilated ducts. There is no abnormal echo within these ?? simple structures. There is good through transmission with no vascular ?? flow. Gynecomastia extends to the 7-8 o'clock axis of the right breast, ?? with a linear focus extending beyond the parenchymal cone. ? No abnormal shadowing or mass is evident. ? MM/MM tomosynthesis diagnostic BI ?? IMPRESSION: ?? -There is moderate to severe RIGHT and moderate LEFT male gynecomastia. ? -There are subcentimeter simple cysts versus small dilated ducts in the ?? retroareolar region of the RIGHT breast. There are no internal echoes. ? -There are no suspicious features in either breast. ? -Recommend clinical management and follow-up. ? OVERALL ASSESSMENT: ?? Mammography: BI-RADS 2 - Benign Findings ?? Ultrasound: BI-RADS 2 - Benign Findings ? RECOMMENDATION: ?? 1. Patient should be managed based on the clinical impression. ? Results were provided to the patient at time of visit by the ?? technologist. ? Dictated By: ?Miguel A Bradley MD ? Signed By: ?<Electronically signed by Miguel A Bradley MD in OV> ?04/11/241653 ? DD/ 1515 ? TD/TT: ? Instructor Adjunct Pharmacy Technician: ? Procedure Note Donleenainterpreter, Image - 04/11/2024 [facility] [address] [place] [address] Mammography Report Signed Patient: Rik Carpio#: [id number] : 6Acct:[id number] Age/Sex: 79 / MADM Date: 04/11/24 Loc: HO.MAMMO Attending Dr: Pedro Webber MD Ordering Physician: Pedro Webber MDResu lts: 2Benign Findings Date of Service: 04/11/24Follow Up: 1 Year From Orig inal Mammogram Procedure(s): MM tomosynthesis diagnostic BI Accession Number(s): [id number] cc: Pedro Webber MD EXAMINATION: MM DIAGNOSTIC DIGITAL BREAST TOMOSYNTHESIS, BILATERAL US BREAST LIMITED, RIGHT MAMMOGRAPHY: CLINICAL INFORMATION: Right breast tenderness, palpable abnormality x3 months. Gynecomastia. COMPARISON: Mammography: None. TECHNIQUE: Digital breast tomosynthesis is performed in both the craniocaudal and mediolateral oblique views along with computer-aided detection (CAD). Synthesized 2D images are generated from the tomosynthesis. In addition, a right full-field 3-D ML view was also obtained. FINDINGS: There are scattered areas of fibroglandular density (ACR BI-RADS breast composition Category b). There is severe right and moderate left breast gynecomastia. No definite suspicious mass, area of architectural distortion, or suspicious calcifications are seen in either breast. There is a small lymph node in the axillary tail of the left breast. No suspicious skin or axillary findings. ULTRASOUND: CLINICAL INFORMATION: As above. COMPARISON: None TECHNIQUE: Targeted sonographic evaluation was performed using a high frequency linear transducer. Right breast retroareolar region was targeted. Selected archived documentation. FINDINGS: RIGHT BREAST: There is moderate to severe development of retroareolar breast tissue consistent with gynecomastia. There are retroareolar simple cystic foci measuring less than a centimeter, either simple cysts or mildly dilated ducts. There is no abnormal echo within these simple structures. There is good through transmission with no vascular flow. Gynecomastia extends to the 7-8 o'clock axis of the right breast, with a linear focus extending beyond the parenchymal cone. No abnormal shadowing or mass is evident. MM/MM tomosynthesis diagnostic BI IMPRESSION: -There is moderate to severe RIGHT and moderate LEFT male gynecomastia. -There are subcentimeter simple cysts versus small dilated ducts in the retroareolar region of the RIGHT breast. There are no internal echoes. -There are no suspicious features in either breast. -Recommend clinical management and follow-up. OVERALL ASSESSMENT: Mammography: BI-RADS 2 - Benign Findings Ultrasound: BI-RADS 2 - Benign Findings RECOMMENDATION: 1. Patient should be managed based on the clinical impression. Results were provided to the patient at time of visit by the technologist. Dictated By: Miguel A Bradley MD Signed By: <Electronically signed by Miguel A Bradley MD in OV> 04/11/24 1654 DD/ 1515 TD/TT: Instructor Adjunct Pharmacy Technician: us Pedro Julian MD IMG BI PROCEDURES Fin al Result * (ABNORMAL) Lipid Panel with Reflex to Direct LDL (10/12/2023 8:50 AM EST) Triglycerides 40 <150 mg/dL [facility] Comment:Desirable Triglyceri de: less than 150 mg/dLBorderline High Triglyceride 150-199 mg/dLHigh Triglyceride: 200-499 mg/dLVery High Triglyceride: greater than or equal to 5OO mg/dL Cholesterol 94 <200 mg/dL [facility] Comment:Desirable Cholestero l: less than 200 mg/dLBorderline High Cholesterol: 200-239 mg/dLHigh Cholesterol: greater than 239 mg/dL LDL Cholesterol Calculated 62 <100 mg/dL [facility] Comment:Desirable LDL: less than 100 mg/dLNear Optimal/Above Optimal LDL: 110- 129 mg/dLBorderline High LDL: 130-159 mg/dLHigh LDL: 160-189 mg/dLVery High LDL: greater than or equal to 190 mg/dL HDL Cholesterol 24(L) >40 mg/dL [facility] Comment:Desirable HDL: great er than 40 mg/dL Note: This HDL assay may give artificially low results in patients with liver disease. Blood 10/12/2023 8:50 AM EST 10/12/2023 10:56 AM EST us Pedro Julian MD LAB BLOOD ORDERABLES Final Result [facility] [address] [place] [phone] * HEPATITIS C AB W/REFL TO HCV RNA, QN, PCR (12/24/2021 8:24 AM EST) HEPATITIS C ANTIBODY NON-REACT SIL NON-REACT SIL [facility] INDEX 0.01 <1.00 [facility] Comment: ?? HCV antibody was non-reactive. There is no laboratory ?? evidence of HCV infection. ?? In most cases, no further action is required. However, if recent HCV exposure is suspected, a test for HCV RNA (test code 16161) is suggested. ?? For additional information please refer to http://education.Third Chicken/faq/GFE44e4 (This link is being provided for informational/ educational purposes only.) ?? 12/24/2021 8:24 AM EST us Pedro Julian MD HISTORICAL/NON ORDERA BLE LABS Final Result [facility] [address] from Last 3 Months or Most Recently Relevant to Health Maintenance Insurance [facility] Care Teams Corn Grower Relationship Specialty Start Date End Date Pedro Pulliam MD [address] [place] [phone] PCP - General Internal Medicine 09/10/14
--- OUTSIDE RECORDS SUMMARY | 2024-11-29 14:47 | XMS_ITS | Clinical Summary ---
Author Organization [facility] ity Address [address] [place] [address] Care Team Providers Care Training Program Developer Name Role Phone Unavailable Primary Care Provider Unavailabl e Social History Tobacco Use Types Packs/Day Years Used Date Smoking Tobacco: Never Assessed Sex and Gender Information Value Date Recorded Sex Assigned at Not on file Gender Identity Not on file Sexual Orientation Not on file Plan of Treatment Health Maintenance Due Date Last Done Comments DTaP,Tdap,and Td Vaccines (1 - Tdap) 1965 Zoster Vaccines (1 of 2) 1996 Pneumococcal Vaccine: 65+ Ye ars (1 of 1 - PCV) 2011 RSV Immunization Patients 60 + Years Old (1 - 1-dose 75+ series) 2021 COVID-19 Vaccine ( - 2023-2 5 season) 2024 Influenza Vaccine (#1) 2024 HIB Vaccines Aged Out No longer eligi [...] on patient's age to complete this topic MMR Vaccines Aged Out No longer eligi ble based on patient's age to complete this topic Meningococcal ACWY Vaccine Aged Out N o longer eligible based on patient's age to complete this topic RSV Immunization Patients Un leigh 20 months Aged Out No longer eligible b ased on patient's age to complete this topic Varicella Vaccines Aged Out No longer eligible based on patient's age to complete this topic Advance Directives Documents on File Type Date Recorded Patient Report Programmer Expl anation Health Care Decision (hx) 01/10/2020 AD FISHRE DIRECTIVE
--- OUTSIDE RECORDS SUMMARY | 2024-11-29 14:48 | XMS_ITS | Encounter Summary ---
Author Organization [facility] Address [address] [facility] 7t [place] [address] Care Team Providers Care Medical Social Worker Name Role Phone Pedro Pulliam MD Primary Care Provide r Encounter Details Date Type Department Care Team (Late st Contact Info) Description 02/25/2023 Orders Only [facility] MED[facility]INE [address] [place] [address] Shanita Pfeiffer LPN Social History Tobacco Use Types Packs/Day Years [...] Description 01/11/2025 1:15 PM EST Office Visit [facility] [address] [place] [address] Pedro Pulliam MD [address] [place] [address] documented as of this encounter Visit Diagnoses Not on filedocumented in this encounter Care Teams Medical Social Worker Relationship Specialty Start Date End Date Pedro Pulliam MD [address] [place] [address] PCP - General Internal Medicine 09/10/14 documented as of this encounter
--- OUTSIDE RECORDS SUMMARY | 2024-11-29 14:48 | XMS_ITS | Encounter Summary ---
Author Organization [employer] Address [address] 7[address] [place] [address] Care Team Providers Care Tool And Die Technician Name Role Phone Pedro Pulliam MD Primary Care Provide r Reason for Visit * Reason Onset Date Comments follow up needed 11/20/2024 Encounter Details Date Type Department Care Team ([facility] st Contact Info) Description 11/20/2024 Telephone [facility] MED[facility]INE [address] [place], [place] [phone] Pedro Pulliam MD [address] [place], [place] [phone] follow up needed Social History Tobacco Use Types Packs/Day Years [...] AM EDT documented as of this encounter Miscellaneous Notes * Telephone Encounter - Nirmala Varner RN - 11/21/2024 10:42 AM EST TC placed to [facility] Plastic Surgery office and spoke to their RN Randa who confirms that the pt was seen for Gynecomastia by the provider. Due to the pt advanced age and fragility the office would like PCP to rule out other potential causes for this condition. They are requesting possible blood work to r/o hormonal changes including Testosterone, Estrogen, LH, FSH, Prolactin, Thyroid and Kidney function. The office also would like to r/o any malignant possibilities including testicular changes. Randa informed that this information will be forwarded to PCP Dr. Snow for review. * Telephone Encounter - Juan Francisco [place] - 11/20/2024 12:47 PM EST Tc from Randa with [facility] plastic surgery reporting that they saw pt for gynecomastia and wondering if could be ruled out for other causes . So requesting for him to be tested for hormone changes, assess if this drug induced due to his nefedipine and rule out any malignant possibilities . Once assessed and ruled out they would be able to see him for his Gynecomastia documented in this encounter Plan of Treatment Upcoming Encounters Date Type Department Care Team (Late st Contact Info) Description 01/11/2025 1:15 PM EST Office Visit [facility] [address] [place] [address] Pedro Pulliam MD [address] [place] [address] documented as of this encounter Visit Diagnoses Not on filedocumented in this encounter Additional Health Concerns Assessment Noted Time PHQ-9 Depression Total Score: 0 10/17/20 24 1:50 PM EST documented as of this encounter Care Teams Tool And Die Technician Relationship Specialty Start Date End Date Pedro Pulliam MD [address] [place] [address] PCP - General Internal Medicine 09/10/14 documented as of this encounter
--- OUTSIDE RECORDS SUMMARY | 2024-11-29 14:48 | XMS_ITS | Encounter Summary ---
Author Organization [employer] Address [address] 7[address] [place] [address] Care Team Providers Care Rod Piler Name Role Phone Pedro Pulliam MD Primary Care Provide r Reason for Visit * Reason Comments Med Refill Encounter Details Date Type Department Care Team ([facility] st Contact Info) Description 06/02/2024 Refill [facility] [address] [place], [place] [phone] Pedro Pulliam MD [address] [place], [place] [phone] Primary hypertension; Stage 3 chronic kidney disease, unspecified whether stage 3a or 3b CKD (CMS/HCC); Nonrheumatic tricuspid valve regurgitation Social History Tobacco Use Types Packs/Day Years Used Date Smoking Tobacco: Never Passive Smoke Exposure: Never Smokeless Tobacco: Never Depression Answer Date Recorded Patient Health Questionnaire-9 Score 1 09/23/2023 Patient Health Questionnaire-9 Score 1 09/23/2023 Last PHQ-9: Questionnaire Data Not on file 1 11/23/2022 Housing Stability Answer Date Recorded What is your housing situation today? I have prashant reid 09/23/[address] you li ve. Do you have problems with any of the following? None of the above 09/23/2023 Food Insecurity Answer Date Recorded Within the past 12 months, y ou worried that your food would run out before you got money to buy more: Never True 09/23/2023 Within the past 12 months,th e food you bought just didn't last and you didn't have enough money to get more: Never True Transportation Answer Date Recorded In the past 12 months, has l ack of transportation kept you from medical appts, meetings, work or from getting things needed for daily living? No 09/23/2023 Utilities Answer Date Recorded In the past 12 months, has t he electric, gas, oil or water company threatened to shut off services in your home? No 09/23/2023 Depression Answer Date Recorded Patient Health Questionnaire-2 Score 1 09/23/2023 Sex and Gender Information Value Date Recorded Sex Assigned at Male 09/07/2022 10:17 AM EDT Legal Sex Male 10:17 AM EDT Gender Identity Male 09/07/2022 10:17 AM EDT Sexual Orientation Straight 09/07/2022 10 :17 AM EDT documented as of this encounter Plan of Treatment Upcoming Encounters Date Type Department Care Team (Late st Contact Info) Description 01/11/2025 1:15 PM EST Office Visit [facility] [address] [place] [address] Pedro Pulliam MD [address] [place] [address] documented as of this encounter Visit Diagnoses Diagnosis Primary hypertension Unspecified essential hypertension Stage 3 chronic kidney disease, unspecified whether stage 3a or 3b CKD (CMS/HCC) Nonrheumatic tricuspid valve regurgitation documented in this encounter Additional Health Concerns Assessment Noted Time PHQ-9 Depression Total Score: 1 09/23/20 23 1:21 PM EST documented as of this encounter Care Teams Rod Piler Relationship Specialty Start Date End Date Pedro Pulliam MD [address] [place] [address] PCP - General Internal Medicine 09/10/14 documented as of this encounter
--- OUTSIDE RECORDS SUMMARY | 2024-11-29 14:48 | XMS_ITS | Encounter Summary ---
Author Organization [employer] Address [address] 7[address] [place] [address] Care Team Providers Care Public Safety Officer Name Role Phone Pedro Pulliam MD Primary Care Provide r Reason for Visit * Reason Onset Date Comments OV 03/1602/17/2024 Encounter Details Date Type Department Care Team ([facility] st Contact Info) Description 02/17/2024 Telephone [facility] MEDICINE [address] [place], [place] [phone] Pedro Pulliam MD [address] [place], [place] [phone] OV 03/16 Social History Tobacco Use Types Packs/Day Years [...] encounter Miscellaneous Notes * Telephone Encounter - Gibson Faust - 02/17/2024 1:13 PM EDT Tc from pt called in to cancel OV with pcp for 03/16 due to being out of state regarding a family issue. Pt stated will call back to reschedule. If any questions you can contact pt at [phone]. documented in this encounter Plan of Treatment Upcoming Encounters Date Type Department Care Team (Late st Contact Info) Description 01/11/2025 1:15 PM EST Office Visit [facility] MED[facility] [address] [place] [address] Pedro Pulliam MD [address] [place] [address] documented as of this encounter Visit Diagnoses Not on filedocumented in this encounter Additional Health Concerns Assessment Noted Time PHQ-9 Depression Total Score: 1 09/23/20 23 1:21 PM EST documented as of this encounter Care Teams Public Safety Officer Relationship Specialty Start Date End Date Pedro Pulliam MD [address] [place] [address] PCP - General Internal Medicine 09/10/14 documented as of this encounter
--- OUTSIDE RECORDS SUMMARY | 2024-11-29 14:48 | XMS_ITS | Encounter Summary ---
Author Organization [employer] [facility] Address [address] [facility] 7t [place] [address] Care Team Providers Care Physics Technical Officer Name Role Phone Pedro Pulliam MD Primary Care Provide r Encounter Details Date Type Department Care Team (Late st Contact Info) Description 01/06/2023 Orders Only [facility] MED & PEDS [address] [place], [place] [phone] Shira Castano LPN Social History Tobacco Use Types Packs/Day [...] Description 01/11/2025 1:15 PM EST Office Visit [facility] MEDICINE [address] [place] [address] Pedro Pulliam MD [address] [place] [address] documented as of this encounter Visit Diagnoses Not on filedocumented in this encounter Care Teams Physics Technical Officer Relationship Specialty Start Date End Date Pedro Pulliam MD [address] [place] [address] PCP - General Internal Medicine 09/10/14 documented as of this encounter
--- OUTSIDE RECORDS SUMMARY | 2024-11-29 14:48 | XMS_ITS | Encounter Summary ---
Author Organization [facility] Address [address] 7t [place] [address] Care Team Providers Care Pipeline Controller Name Role Phone Pedro Pulliam MD Primary Care Provide r Reason for Visit * Reason Onset Date Comments Referral 05/24/2024 Encounter Details Date Type Department Care Team ([facility] st Contact Info) Description 05/24/2024 Telephone [facility] MEDICINE [address] [place], [place] [phone] Pedro Pulliam MD [address] [place], [place] [phone] Referral Social History Tobacco Use Types Packs/Day Years [...] encounter Miscellaneous Notes * Telephone Encounter - Bishnu Foote - 05/24/2024 9:50 AM EDT Tc from Radha with [facility] plastic surgery, [place] human resource ssd surgeon is recommending pt to be referred to aendocrinologist. Please contact at [phone] documented in this encounter Plan of Treatment Upcoming Encounters Date Type Department Care Team (Late st Contact Info) Description 01/11/2025 1:15 PM EST Office Visit [facility] MEDICINE [address] [place] [address] Pedro Pulliam MD [address] [place] [address] documented as of this encounter Visit Diagnoses Not on filedocumented in this encounter Additional Health Concerns Assessment Noted Time PHQ-9 Depression Total Score: 1 09/23/20 23 1:21 PM EST documented as of this encounter Care Teams Pipeline Controller Relationship Specialty Start Date End Date Pedro Pulliam MD [address] [place] [address] PCP - General Internal Medicine 09/10/14 documented as of this encounter
--- OUTSIDE RECORDS SUMMARY | 2024-11-29 14:48 | XMS_ITS | Encounter Summary ---
Author Organization [facility] Address [address] [facility] 7t [place] [address] Care Team Providers Care Sales Promotion Manager Name Role Phone Pedro Pulliam MD Primary Care Provide r Reason for Visit * Reason Onset Date Comments Med Refill 2023 Encounter Details Date Type Department Care Team (Late st Contact Info) Description 2023 Refill [facility] MEDICINE [address] [place], [place] [phone] Pedro Pulliam MD [address] [place], [place] [phone] Atrial fibrillation, unspecified type (CMS/HCC) (Primary Dx) Social History Tobacco Use Types Packs/Day Years Used Date Smoking Tobacco: Never Assessed Sex and Gender Information Value Date Recorded Sex Assigned at Male 09/07/2022 10:17 AM EDT Legal Sex Male 10:17 AM EDT Gender Identity Male 09/07/2022 10:17 AM EDT Sexual Orientation Straight 09/07/2022 10 :17 AM EDT documented as of this encounter Miscellaneous Notes * Telephone Encounter - Terence Shah - 2023 11:31 AM EDT Tc from pt requesting med refill on Warfarin 5 mg tablet documented in this encounter Plan of Treatment Upcoming Encounters Date Type Department Care Team (Late st Contact Info) Description 01/11/2025 1:15 PM EST Office Visit [facility] MEDICINE [address] [place], [place] [phone] Pedro Pulliam MD [address] [place], [place] [phone] documented as of this encounter Visit Diagnoses Diagnosis Atrial fibrillation, unspecified type (CMS/HCC)- Primary documented in this encounter Care Teams Sales Promotion Manager Relationship Specialty Start Date End Date Pedro Pulliam MD [address] [place] [address] PCP - General Internal Medicine 09/10/14 documented as of this encounter
--- OUTSIDE RECORDS SUMMARY | 2024-11-29 14:48 | XMS_ITS | Encounter Summary ---
Author Organization [employer] [facility] Address [address] [facility] 7t [place] [address] Care Team Providers Care Lab Specialist Name Role Phone Pedro Pulliam MD Primary Care Provide r Encounter Details Date Type Department Care Team (Late st Contact Info) Description 02/01/2023 Orders Only [facility] MED & PEDS [address] [place], [place] [phone] Shira Castano LPN Social History Tobacco Use [...] 01/11/2025 1:15 PM EST Office Visit [facility] MEDICINE [address] [place] [address] Pedro Pulliam MD [address] [place] [address] documented as of this encounter Visit Diagnoses Not on filedocumented in this encounter Care Teams Lab Specialist Relationship Specialty Start Date End Date Pedro Pulliam MD [address] [place] [address] PCP - General Internal Medicine 09/10/14 documented as of this encounter
--- OUTSIDE RECORDS SUMMARY | 2024-11-29 14:48 | XMS_ITS | Encounter Summary ---
Author Organization [employer] Address [address] 7[address] [place] [address] Care Team Providers Care Planograph Operator Name Role Phone Pedro Pulliam MD Primary Care Provide r Encounter Details Date Type Department Care Team ([facility] st Contact Info) Description 05/31/2024 Telephone [facility] MEDICINE [address] [place], [place] [phone] Pedro Pulliam MD [address] [place], [place] [phone] Social History Tobacco Use Types Packs/Day Years [...] encounter Miscellaneous Notes * Telephone Encounter - Monica Hinojosa LPN - 05/31/2024 1:20 PM EDT Incoming call to the Critical Result line 05/31/24 at 1:21 PM Name of Caller/Facility:[facility] Callback number: [phone] Reason for Call: INR 1.4 no missed doses Usual warfarin is 5mg Wed & Wednesday and 2.5mg all other days. Today increased to Warfarin 5mg today and tomorrow. Resume regular doses on Wednesday and return for recheck on Wednesday. Message to be forwarded to Pedro Webber MD and team nurses for follow up. documented in this encounter Plan of Treatment Upcoming Encounters Date Type Department Care Team (Late st Contact Info) Description 01/11/2025 1:15 PM EST Office Visit [facility] MEDICINE [address] [place] [address] Pedro Pulliam MD [address] [place] [address] documented as of this encounter Visit Diagnoses Not on filedocumented in this encounter Additional Health Concerns Assessment Noted Time PHQ-9 Depression Total Score: 1 09/23/20 23 1:21 PM EST documented as of this encounter Care Teams Planograph Operator Relationship Specialty Start Date End Date Pedro Pulliam MD [address] [place] [address] PCP - General Internal Medicine 09/10/14 documented as of this encounter
--- OUTSIDE RECORDS SUMMARY | 2024-11-29 14:48 | XMS_ITS | Encounter Summary ---
Author Organization [facility] Address [address] 7t [place] [address] Care Team Providers Care Psychiatry Instructor Name Role Phone Pedro Pulliam MD Primary Care Provide r Encounter Details Date Type Department Care Team (Late st Contact Info) Description 11/06/2024 Orders Only GENERIC EXTERNAL DATA DEPARTMENT [...] 1:15 PM EST Office Visit [facility] [address] [place] [address] Pedro Pulliam MD [address] [place] [address] documented as of this encounter Procedures Procedure Name Priority Date/Time Associated Diagnosis Comments PROTHROMBIN TIME WHOLE BLD POC Routine 11/06/2024 1:09 PM EST ~PT, ~INR - ANTI COAG CLINIC Routine 11/06/2024 1:09 PM EST documented in this encounter Results * (ABNORMAL) PROTHROMBIN TIME WHOLE BLD POC (11/06/2024 1:09 PM EST) Protime 28.7(H) 11.1 - 13.5 sec [facility] 11/06/2024 1:09 PM EST 11/06/2024 1:11 PM EST us Generic External Data Provider LAB BLOOD ORDERAB LES Final Result [facility] [address] [place] [address] [phone] * (ABNORMAL) ~PT, ~INR - ANTI COAG CLINIC (11/06/2024 1:09 PM EST) Prothrombin Time INR 2.4(H) 0.9 - 1.1 [facility] Comment:METER #: [id number] TERNATIONAL NORMALIZED RATIO (INR) REFERENCE RANGES Reference RangeFor patients not on anticoagulant therapy: 0.9 - 1.1INR ranges for oral anticoagulanttherapy:For prevention and treatment of venous thrombosis and pulmonary embolism: 2.0 - 3.0For acute myocardial infarction with aspirin therapy: 2.0 - 3.0For acute myocardial infarction without aspirin therapy: 3.0 - 4.0For patients with mechanical prosthetic heart valves: 2.5 - 3.5 11/06/2024 1:09 PM EST 11/06/2024 1:11 PM EST us Generic External Data Provider LAB BLOOD ORDERAB LES Final Result [facility] [address] [place] [phone] documented in this encounter Visit Diagnoses Not on filedocumented in this encounter Additional Health Concerns Assessment Noted Time PHQ-9 Depression Total Score: 0 10/17/20 24 1:50 PM EST documented as of this encounter Care Teams Psychiatry Instructor Relationship Specialty Start Date End Date Pedro Pulliam MD [address] [place] [address] PCP - General Internal Medicine 09/10/14 documented as of this encounter
--- OUTSIDE RECORDS SUMMARY | 2024-11-29 14:48 | XMS_ITS | Encounter Summary ---
Author Organization [facility] Address [address] [facility] 7t [place] [address] Care Team Providers Care Battalion Chief Name Role Phone Pedro Pulliam MD Primary Care Provide r Encounter Details Date Type Department Care Team (Late st Contact Info) Description 05/31/2023 Orders Only [facility] MEDICINE [address] [place] [phone] Shanita Pfeiffer LPN Social History Tobacco Use [...] Description 01/11/2025 1:15 PM EST Office Visit [facility] [address] [place] [address] Pedro Pulliam MD [address] [place] [address] documented as of this encounter Visit Diagnoses Not on filedocumented in this encounter Care Teams Battalion Chief Relationship Specialty Start Date End Date Pedro Pulliam MD [address] [place] [address] PCP - General Internal Medicine 09/10/14 documented as of this encounter
--- OUTSIDE RECORDS SUMMARY | 2024-11-29 14:49 | XMS_ITS | Clinical Summary ---
Author Organization [facility] [facility] Address [address] [address] Care Team Providers Care Senior Care Provider Name Role Phone Pedro Snow MD Primary Care Provider Unav ailable Family History Medical History Relation Comments Cancer Father Diabetes Sibling 1 sister Cancer Sibling 2 brother Relation Status Comments Father Unknown Mother Unknown Sibling 1 Sibling 2 Social History Tobacco Use Types Packs/Day Years Used Date Smoking Tobacco: Never Alcohol Use Standard Drinks/Week Comments No 0 (1 standard drink = 0.6 oz pur e alcohol) Sex and Gender Information Value Date Recorded Sex Assigned at Not on file Legal Sex Male 5:22 PM EST Gender Identity Not on file Sexual Orientation Not on file Last Filed Vital Signs Vital Sign Reading Time Taken Comments Blood Pressure 110/64 08/10/2019 12:00 PM EDT Pulse 50 08/10/2019 12:00 PM EDT Temperature - - Respiratory Rate 16 04/13/2019 12:00 PM EDT Oxygen Saturation 99% 08/10/2019 12:00 PM EDT Inhaled Oxygen Concentration - - Weight 85.7 kg (189 lb) 08/10/2019 12:00 PM EDT Height 175.3 cm (5' 9 ) 08/10/2019 12:00 PM EDT Body Mass Index 27.91 08/10/2019 12:00 PM EDT Plan of Treatment Health Maintenance Due Date Last Done Comments Pneumococcal Vaccine: 65+ Ye ars (1 of 2 - PCV) 1951 Influenza Vaccine (#1) 2024 09/23/2016 Hepatitis B Vaccine Aged Out No longe r eligible based on patient's age to complete this topic Care Teams Senior Care Provider Relationship Specialty Start Date End Date Pedro Snow MD PCP - General 11/18/20
== END 2024-11-29 13:14 | disposition home or self-care (01) ==
LOC: HO.ACS 12:57
PROVIDERS: PCP Internal Medicine; Visit Provider Internal Medicine
DX: Z79.01 Long term (current) use of anticoagulants (principal)

== ENCOUNTER → 2024-11-29 12:57 | Outpatient (BNVA) | payer OTHER, SELFPAY | PROVIDERS: PCP Internal Medicine; Visit Provider Internal Medicine | DX: I48.0 Paroxysmal atrial fibrillation (principal); Z79.01 Long term (current) use of anticoagulants; Z51.81 Encounter for therapeutic drug level monitoring | CPT/HCPCS: 85610; 99211 ==

== ENCOUNTER 2024-12-20 12:58 | Outpatient (AMB) | payer OTHER, SELFPAY ==
[2024-12-20 13:08] LABS: Prothrombin Time Whole Bld POC 21.3 sec (11.1-13.5); ~PT, ~INR - Anti Coag Clinic 1.8 (0.9-1.1)
--- NOTE | 2024-12-20 13:16 | MHC.OFFVISCO ---
Intake Intake Visit Reasons: Anticoagulation Allergies No Known Allergies [No Known Allergies*] Allergy (Verified 12/20/24 13:03) Medication List - Last Reconciled 12/20/24 by Neena Boyce RN amlodipine 5 mg PO DAILY aspirin 81 mg PO DAILY atorvastatin 80 mg PO BEDTIME cholecalciferol (vitamin D3) 25 mcg PO DAILY dorzolamide-timolol 22.3-6.8 mg/mL 22.3 drps ophthalmic (eye) BID ferrous sulfate (FeroSul) 1 tab PO DAILY furosemide 40 mg PO DAILY iron sucrose (Venofer) 200 mg IV Q3D lisinopril 40 mg PO DAILY octreotide acetate (Mycapssa) 20 mg PO DAILY travoprost 0.004% 1 drp ophthalmic (eye) BEDTIME warfarin 5 mg See Protocol PO DAILY Nursing Note NO CP,SOB,DIET/MED CHANGES,FALLS OR SX OF BLEEDING. DECREASE WEEKLY DOSE AND FOLLOW-UP IN 3 WEEKS. GOOD UNDERSTANDING OF DOSING INSTR. Anti-Coag Initial Assessment Social Hx Patient Tobacco Use Status: Former Tobacco user Tobacco use type: Cigarette alcohol intake: former Alcohol intake frequency: does not drink Coding Level of Care Code Est Patient Level 1 Diagnoses Current use of anticoagulant therapy Z79.01 Assessment & Plan Assessment & Plan (1) Current use of anticoagulant therapy: Comment: warfarin-Otto Margarette- need to confirm ok to stop 5 days prior to colonoscopy-unable to send note through expanse Patient aware this must be confirmed, there were no major barriers to understanding identified Code(s): Z79.01 - group home (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
--- OUTSIDE RECORDS SUMMARY | 2024-12-20 14:18 | XMS_ITS | Encounter Summary ---
Author Organization [employer] Address [address] 7t [place] [address] Care Team Providers Care Marble Cleaner Name Role Phone Pedro Pulliam MD Primary Care Provide r Encounter Details Date Type Department Care Team (Late st Contact Info) Description 12/20/2024 Orders Only GENERIC EXTERNAL DATA DEPARTMENT Provider, [...] Description 01/11/2025 1:15 PM EST Office Visit [facility] MEDICINE [address] [place] [address] Pedro Pulliam MD [address] [place] [address] documented as of this encounter Procedures Procedure Name Priority Date/Time Associated Diagnosis Comments PROTHROMBIN TIME WHOLE BLD POC Routine 12/20/2024 1:06 PM EST ~PT, ~INR - ANTI COAG CLINIC Routine 12/20/2024 1:06 PM EST documented in this encounter Results * (ABNORMAL) PROTHROMBIN TIME WHOLE BLD POC (12/20/2024 1:06 PM EST) Protime 21.3(H) 11.1 - 13.5 sec [facility] 12/20/2024 1:06 PM EST 12/20/2024 1:08 PM EST us Generic External Data Provider LAB BLOOD ORDERAB LES Final Result [facility] [address] [place] [address] [phone] * (ABNORMAL) ~PT, ~INR - ANTI COAG CLINIC (12/20/2024 1:06 PM EST) Prothrombin Time INR 1.8(H) 0.9 - 1.1 [facility] Comment:METER #: [id number] TERNATIONAL NORMALIZED RATIO (INR) REFERENCE RANGES Reference RangeFor patients not on anticoagulant therapy: 0.9 - 1.1INR ranges for oral anticoagulanttherapy:For prevention and treatment of venous thrombosis and pulmonary embolism: 2.0 - 3.0For acute myocardial infarction with aspirin therapy: 2.0 - 3.0For acute myocardial infarction without aspirin therapy: 3.0 - 4.0For patients with mechanical prosthetic heart valves: 2.5 - 3.5 12/20/2024 1:06 PM EST 12/20/2024 1:08 PM EST us Generic External Data Provider LAB BLOOD ORDERAB LES Final Result [facility] [address] [place] [phone] documented in this encounter Visit Diagnoses Not on filedocumented in this encounter Additional Health Concerns Assessment Noted Time PHQ-9 Depression Total Score: 0 10/17/20 24 1:50 PM EST documented as of this encounter Care Teams Marble Cleaner Relationship Specialty Start Date End Date Pedro Pulliam MD [address] [place] [address] PCP - General Internal Medicine 09/10/14 documented as of this encounter
--- OUTSIDE RECORDS SUMMARY | 2024-12-20 14:18 | XMS_ITS | Encounter Summary ---
Author Organization [facility] Address [address] 7t [place] [address] Care Team Providers Care Dental Financial Coordinator Name Role Phone Pedro Pulliam MD Primary Care Provide r Encounter Details Date Type Department Care Team (Late st Contact Info) Description 02/01/2023 Orders Only [facility] MED & PEDS [address] [place], [place] [phone] Shira Castano LPN Social History Tobacco Use [...] Description 01/11/2025 1:15 PM EST Office Visit [facility] MEDICINE [address] [place] [address] Pedro Pulliam MD [address] [place] [address] documented as of this encounter Visit Diagnoses Not on filedocumented in this encounter Care Teams Dental Financial Coordinator Relationship Specialty Start Date End Date Pedro Pulliam MD [address] [place] [address] PCP - General Internal Medicine 09/10/14 documented as of this encounter
--- OUTSIDE RECORDS SUMMARY | 2024-12-20 14:18 | XMS_ITS | Encounter Summary ---
Author Organization [employer] Address [address] 7t [place] [address] Care Team Providers Care Stock Driver Name Role Phone Pedro Pulliam MD Primary Care Provide r Reason for Visit * Reason Onset Date Comments OV 03/1602/17/2024 Encounter Details Date Type Department Care Team ([facility] st Contact Info) Description 02/17/2024 Telephone [facility] MEDICINE [address] [place], [place] [phone] Pedro Pulliam MD [address] [place], [place] [phone] OV 03/16 Social History Tobacco Use Types [...] any questions you can contact pt at [phone]. documented in this encounter Plan of Treatment Upcoming Encounters Date Type Department Care Team (Late st Contact Info) Description 01/11/2025 1:15 PM EST Office Visit [facility] MED[facility]INE [address] [place] [address] Pedro Pulliam MD [address] [place] [address] documented as of this encounter Visit Diagnoses Not on filedocumented in this encounter Additional Health Concerns Assessment Noted Time PHQ-9 Depression Total Score: 1 09/23/20 23 1:21 PM EST documented as of this encounter Care Teams Stock Driver Relationship Specialty Start Date End Date Pedro Pulliam MD [address] [place] [address] PCP - General Internal Medicine 09/10/14 documented as of this encounter
--- OUTSIDE RECORDS SUMMARY | 2024-12-20 14:18 | XMS_ITS | Encounter Summary ---
Author Organization [employer] Address [address] [place] [address] Care Team Providers Care Price Analyst Name Role Phone Pedro Pulliam MD Primary Care Provide r Encounter Details Date Type Department Care Team ([facility] st Contact Info) Description 05/31/2024 Telephone [facility] MEDICINE [address] [place], [place] [phone] Pedro Pulliam MD [address] [place], [place] [phone] Social History Tobacco Use Types Packs/Day Years [...] line 05/31/24 at 1:21 PM Name of Caller/Facility:[facility] Callback number: [phone] Reason for Call: INR 1.4 no missed [...] Description 01/11/2025 1:15 PM EST Office Visit [facility] [address] [place] [address] Pedro Pulliam MD [address] [place] [address] documented as of this encounter Visit Diagnoses Not on filedocumented in this encounter Additional Health Concerns Assessment Noted Time PHQ-9 Depression Total Score: 1 09/23/20 23 1:21 PM EST documented as of this encounter Care Teams Price Analyst Relationship Specialty Start Date End Date Pedro Pulliam MD [address] [place] [address] PCP - General Internal Medicine 09/10/14 documented as of this encounter
--- OUTSIDE RECORDS SUMMARY | 2024-12-20 14:18 | XMS_ITS | Clinical Summary ---
Author Organization [employer] [facility] Address [address] [place] [address] Care Team Providers Care Night Baker Name Role Phone Unavailable Primary Care Provider Unavailabl e Social History Tobacco Use Types Packs/Day Years Used Date Smoking Tobacco: Never Assessed Sex and Gender Information Value Date Recorded Sex Assigned at Not on file Legal Sex Male 5:46 AM EST Gender Identity Not on file Sexual Orientation Not on file Plan of Treatment Health Maintenance Due Date Last Done Comments DTaP,Tdap,and Td Vaccines (1 - Tdap) 1965 Zoster Vaccines (1 of 2) 1996 Pneumococcal Vaccine: 50+ Ye ars (1 of 1 - PCV) [...] Documents on File Type Date Recorded Patient Aging Box Hand Expl anation Health Care Decision (hx) 01/10/2020 AD FISHER DIRECTIVE
--- OUTSIDE RECORDS SUMMARY | 2024-12-20 14:18 | XMS_ITS | Encounter Summary ---
Author Organization [facility] Address [address] [facility] 7t [place] [address] Care Team Providers Care Supervisor Kennel Name Role Phone Pedro Pulliam MD Primary Care Provide r Encounter Details Date Type Department Care Team (Late st Contact Info) Description 01/06/2023 Orders Only [facility] MED & PEDS [address] [place], [place] [phone] Shira Castano LPN Social History Tobacco Use [...] Description 01/11/2025 1:15 PM EST Office Visit [facility] MEDICINE [address] [place] [address] Pedro Pulliam MD [address] [place] [address] documented as of this encounter Visit Diagnoses Not on filedocumented in this encounter Care Teams Supervisor Kennel Relationship Specialty Start Date End Date Pedro Pulliam MD [address] [place] [address] PCP - General Internal Medicine 09/10/14 documented as of this encounter
--- OUTSIDE RECORDS SUMMARY | 2024-12-20 14:18 | XMS_ITS | Encounter Summary ---
Author Organization [employer] Address [address] [facility] [address] 7t [place] [address] Care Team Providers Care Supervisor Sound Technician Name Role Phone Pedro Pulliam MD Primary Care Provide r Reason for Visit * Reason Onset Date Comments follow up needed 11/20/2024 Encounter Details Date Type Department Care Team ([facility] st Contact Info) Description 11/20/2024 Telephone [facility] [address] [place], [place] [phone] Pedro Pulliam MD [address] [place], [place] [phone] follow up needed Social History Tobacco Use [...] 11/21/2024 10:42 AM EST TC placed to [facility] office and spoke to their [...] 12:47 PM EST Tc from Randa with [facility] plastic surgery reporting that they saw pt [...] Description 01/11/2025 1:15 PM EST Office Visit [facility] [address] [place] [address] Pedro Pulliam MD [address] [place] [address] documented as of this encounter Visit Diagnoses Not on filedocumented in this encounter Additional Health Concerns Assessment Noted Time PHQ-9 Depression Total Score: 0 10/17/20 24 1:50 PM EST documented as of this encounter Care Teams Supervisor Sound Technician Relationship Specialty Start Date End Date Pedro Pulliam MD [address] [place] [address] PCP - General Internal Medicine 09/10/14 documented as of this encounter
--- OUTSIDE RECORDS SUMMARY | 2024-12-20 14:18 | XMS_ITS | Clinical Summary ---
Author Organization [facility] Address [address] [address] Care Team Providers Care Nature Photographer Name Role Phone Pedro Snow MD Primary [...] age to complete this topic Care Teams Nature Photographer Relationship Specialty Start Date End Date Pedro Snow MD PCP - General 11/18/20
--- OUTSIDE RECORDS SUMMARY | 2024-12-20 14:18 | XMS_ITS | Encounter Summary ---
Author Organization [employer] Address [address] [facility] [address]t [place] [address] Care Team Providers Care Revenue Cycle Consultant Name Role Phone Pedro Pulliam MD Primary [...] Description 01/11/2025 1:15 PM EST Office Visit [facility] MEDICINE [address] [place] [address] Pedro Pulliam MD [address] [place] [address] documented as of this encounter Procedures Procedure Name Priority Date/Time Associated Diagnosis Comments PROTHROMBIN TIME WHOLE BLD POC Routine 11/29/2024 1:07 PM EST ~PT, ~INR - ANTI COAG CLINIC Routine 11/29/2024 1:07 PM EST documented in this encounter Results * (ABNORMAL) PROTHROMBIN TIME WHOLE BLD POC (11/29/2024 1:07 PM EST) Protime 24.3(H) 11.1 - 13.5 sec [facility] 11/29/2024 1:07 PM EST 11/29/2024 1:10 PM EST us Generic External Data Provider LAB BLOOD ORDERAB LES Final Result [facility] [address] [place] [address] [phone] * (ABNORMAL) ~PT, ~INR - ANTI COAG CLINIC (11/29/2024 1:07 PM EST) Prothrombin Time INR 2.0(H) 0.9 - 1.1 [facility] Comment:METER #: [id number] TERNATIONAL NORMALIZED RATIO (INR) REFERENCE RANGES Reference [...] Provider LAB BLOOD ORDERAB LES Final Result [facility] [address] [place] [phone] documented in this encounter Visit Diagnoses Not on filedocumented in this encounter Additional Health Concerns Assessment Noted Time PHQ-9 Depression Total Score: 0 10/17/20 24 1:50 PM EST documented as of this encounter Care Teams Revenue Cycle Consultant Relationship Specialty Start Date End Date Pedro Pulliam MD [address] [place] [address] PCP - General Internal Medicine 09/10/14 documented as of this encounter
--- OUTSIDE RECORDS SUMMARY | 2024-12-20 14:18 | XMS_ITS | Encounter Summary ---
Author Organization [facility] Address [address] 7[address] [place] [address] Care Team Providers Care Cement Conveyor Operator Name Role Phone Pedro Pulliam MD Primary Care Provide r Reason for Visit * Reason Onset Date Comments Referral 05/24/2024 Encounter Details Date Type Department Care Team ([facility] st Contact Info) Description 05/24/2024 Telephone [facility] MED[facility] [address] [place], [place] [phone] Pedro Pulliam MD [address] [place], [place] [phone] Referral Social History Tobacco Use Types Packs/Day [...] 9:50 AM EDT Tc from Radha with [facility] plastic surgery, [facility] surgeon is recommending pt to be referred to aendocrinologist. Please contact at [phone] documented in this encounter Plan of Treatment Upcoming Encounters Date Type Department Care Team (Late st Contact Info) Description 01/11/2025 1:15 PM EST Office Visit [facility] [address] [place] [address] Pedro Pulliam MD [address] [place] [address] documented as of this encounter Visit Diagnoses Not on filedocumented in this encounter Additional Health Concerns Assessment Noted Time PHQ-9 Depression Total Score: 1 09/23/20 23 1:21 PM EST documented as of this encounter Care Teams Cement Conveyor Operator Relationship Specialty Start Date End Date Pedro Pulliam MD [address] [place] [address] PCP - General Internal Medicine 09/10/14 documented as of this encounter
--- OUTSIDE RECORDS SUMMARY | 2024-12-20 14:18 | XMS_ITS | Encounter Summary ---
Author Organization [employer] [facility] Address [address] [facility] 7t [place] [address] Care Team Providers Care Newspaper Photojournalist Name Role Phone Pedro Pulliam MD Primary Care Provide r Encounter Details Date Type Department Care Team (Late st Contact Info) Description 05/31/2023 Orders Only [facility] [address] [place] [phone] Shanita Pfeiffer LPN Social History Tobacco Use [...] Description 01/11/2025 1:15 PM EST Office Visit [facility] [address] [place] [phone] Pedro Pulliam MD [address] [place] [phone] documented as of this encounter Visit Diagnoses Not on filedocumented in this encounter Care Teams Newspaper Photojournalist Relationship Specialty Start Date End Date Pedro Pulliam MD [address] [place] [address] PCP - General Internal Medicine 09/10/14 documented as of this encounter
--- OUTSIDE RECORDS SUMMARY | 2024-12-20 14:18 | XMS_ITS | Clinical Summary ---
Author Organization [employer] Address [address] 7t [place] [address] Care Team Providers Care Associate Software Developer Name Role Phone Pedro Pulliam MD Primary [...] in 03/2021 showed diverticulosis only by Dr cononrs at [facility] Mixed hyperlipidemia 08/13/2015 09/15/2023 Assessment & Plan [...] the past by his vascular surgeon at [facility] [place]Dr Lind) whose recommendation was conservative treatment, he saw NO role for any type of surgical intervention. He recommended to repeat the scan in 1 year and continue to take Asa 81 mg po daily. Pt was last seen by his senior web applications developer at [facility] 09/14/2023 recommended repeat US and ECHO and [...] and lasix 20 mg daily prescribed by Field Sales Consultant. I had recently lowered his Lasix due [...] Am and 20 mg PM prescribed by Field Sales Consultant. I had recently lowered his Lasix due [...] Am and 20 mg PM prescribed by Field Sales Consultant. Pt developed some bilateral ankle edema due [...] Furosemide 20 mg po BID prescribed by Field Sales Consultant. Pt developed some bilateral ankle edema due [...] Furosemide 20 mg po BID prescribed by Field Sales Consultant. Pt developed some bilateral ankle edema due [...] clinical impression. Plan: Breast center referral at [facility] Assessment & Plan (02/01/2024 1:36 PM EDT): [...] Encounters Date Type Department Care Team Description 12/20/2024 Orders Only GENERIC EXTERNAL DATA DEPARTMENT Provider, Generic External Data 11/29/2024 Orders Only GENERIC EXTERNAL DATA DEPARTMENT Provider, Generic External Data 11/20/2024 Telephone [facility] [address] [place] [address] Pedro Pulliam MD follow up needed 11/06/2024 Orders Only GENERIC EXTERNAL DATA DEPARTMENT Provider, Generic External Data 10/27/2024 Orders Only GENERIC EXTERNAL DATA DEPARTMENT Provider, Generic External Data 10/17/2024 2:00 PM EST Office Visit [facility] [address] [place] [address] Pedro Pulliam MD Primary hypertension (Primary Dx); Stage 3b chronic kidney disease (CMS/HCC); Longstanding persistent atrial fibrillation (CMS/HCC); Iron deficiency anemia, unspecified iron deficiency anemia type; Benign prostatic hyperplasia without lower urinary tract symptoms; Preventative health care 10/17/2024 Orders Only GENERIC EXTERNAL DATA DEPARTMENT Provider, Generic External Data 10/17/2024 Travel 10/11/2024 Refill [facility] [address] [place] [address] Pedro Pulliam MD 10/09/2024 Refill [facility] [address] [place] [address] Avis Koenig MD Iron deficiency 09/27/2024 Orders [...] Description 01/11/2025 1:15 PM EST Office Visit [facility] [address] [facility] [place] [address] Pedro Pulliam MD [address] [place] [address] Health Maintenance Due Date Last Done Comments [...] Tdap) 05/04/2034 05/04/2024, 04/24/2014, 03/31/2004 Pneumococcal Vaccine: 50+ Years Completed 08/22/2015, 01/03/2014 Hepatitis C Screening [...] [facility] Routine 12/20/2024 1:06 PM EST PROTHROMBIN TIME WHOLE BLD POC Routine 11/29/2024 [...] [facility] Routine 09/27/2024 2:00 PM EST BI MAMMOGRAM DIAGNOSTIC TOMOSYNTHESIS BILATERAL [...] WHOLE BLD POC (12/20/2024 1:06 PM EST) Only the most recent of6 resultswithin the time period is included. Protime 21.3(H) 11.1 - 13.5 sec [facility] 12/20/2024 1:06 PM EST 12/20/2024 1:08 PM EST Generic External Data Provider LAB BLOOD ORDERAB LES Final Result [facility] [address] [place] [phone] * (ABNORMAL) ~PT, ~INR - ANTI COAG CLINIC (12/20/2024 1:06 PM EST) Only the most recent of6 resultswithin the time period is included. Prothrombin Time INR 1.8(H) 0.9 - 1.1 [facility] Comment:METER #: [id number] TERNATIONAL NORMALIZED RATIO (INR) REFERENCE RANGES Reference [...] Provider LAB BLOOD ORDERAB LES Final Result [facility] [address] [place] [phone] [phone] * BI Mammogram Diagnostic Tomosynthesis Bilateral (04/11/2024 3:15 PM EDT) Anatomical Region Laterality Modality Breast Bilateral Mammography 04/11/2024 3:15 PM EDT Narrative 04/11/2024 4:59 PM EDT ? [facility] [place] ? [address] ?[place] [address] ? Mammography Report ? Signed ? Patient: Pablo Quinteros,Jamie ?MR#: ?? [id number] ? : 1945 ?Acct:[id number] ? Age/Sex: 79 / M ?ADM Date: 04/11/24 ? Loc: HO.MAMMO ? Attending Dr: Pedro Webber MD ? Ordering Physician: Pedro Webber MD ?Resu ?? lts: 2Benign Findings ? Date of Service: 04/11/24 ?Follow Up: 1 Year From Orig ?? inal Mammogram ? Procedure(s): MM tomosynthesis diagnostic BI ?? Accession Number(s): [id number] ? cc: Pedro Webber MD ? EXAMINATION: [...] by Miguel A Bradley MD in OV> ?04/11/244 ? DD/ 1515 ? TD/TT: ? Paramedical Aide: ? Procedure Note Donotalizainterpreter, Image - 04/11/2024 [facility] [address] [place] [address] Mammography Report Signed Patient: Rik Carpio#: [id number] : 6Acct:[id number] Age/Sex: 79 / MADM Date: 04/11/24 Loc: HO.MAMMO Attending Dr: Pedro Webber MD Ordering Physician: Pedro Webber MDResu lts: 2Benign Findings Date of Service: 04/11/24Follow Up: 1 Year From Orig inal Mammogram Procedure(s): MM tomosynthesis diagnostic BI Accession Number(s): [id number] cc: Pedro Webber MD EXAMINATION: MM DIAGNOSTIC [...] in OV> 04/11/24 1654 DD/ 1515 TD/TT: Paramedical Aide: us Pedro Julian MD IMG BI PROCEDURES Fin al Result * (ABNORMAL) Lipid Panel with Reflex to Direct LDL (10/12/2023 8:50 AM EST) Triglycerides 40 <150 mg/dL [facility] Comment:Desirable Triglyceri de: less than 150 mg/dLBorderline High Triglyceride 150-199 mg/dLHigh Triglyceride: 200-499 mg/dLVery High Triglyceride: greater than or equal to 5OO mg/dL Cholesterol 94 <200 mg/dL [facility] Comment:Desirable Cholestero l: less than 200 mg/dLBorderline High Cholesterol: 200-239 mg/dLHigh Cholesterol: greater than 239 mg/dL LDL Cholesterol Calculated 62 <100 mg/dL [facility] Comment:Desirable LDL: less than 100 mg/dLNear Optimal/Above Optimal LDL: 110- 129 mg/dLBorderline High LDL: 130-159 mg/dLHigh LDL: 160-189 mg/dLVery High LDL: greater than or equal to 190 mg/dL HDL Cholesterol 24(L) >40 mg/dL [facility] Comment:Desirable HDL: great er than 40 mg/dL Note: This HDL assay may give artificially low results in patients with liver disease. Blood 10/12/2023 8:50 AM EST 10/12/2023 10:56 AM EST Pedro Julian MD LAB BLOOD ORDERABLES Final Result Performing Organization Address City/[facility]/ZIP Co de Phone Number [facility] [address] [place] [phone] * HEPATITIS C AB W/REFL TO HCV RNA, QN, PCR (12/24/2021 8:24 AM EST) HEPATITIS C ANTIBODY NON-REACT SIL NON-REACT SIL [facility] INDEX 0.01 <1.00 [facility] Comment: ?? HCV antibody was non-reactive. There is no laboratory ?? evidence of HCV infection. ?? In most cases, no further action is required. However, if recent HCV exposure is suspected, a test for HCV RNA (test code 89473) is suggested. ?? For additional information please refer to http://[email or web address]/faq/USD04o8 (This link is being provided for informational/ educational purposes only.) ?? 12/24/2021 8:24 AM EST us Pedro Julian MD HISTORICAL/NON ORDERA BLE LABS Final Result [facility] [address] from Last 3 Months or Most Recently Relevant to Health Maintenance Insurance [facility] Care Teams Associate Software Developer Relationship Specialty Start Date End Date Pedro [place] MD [address] [place] [phone] PCP - General Internal Medicine 09/10/14
--- OUTSIDE RECORDS SUMMARY | 2024-12-20 14:18 | XMS_ITS | Encounter Summary ---
Author Organization [employer] [facility] Address [address]t [place] [address] Care Team Providers Care Leaf Sucker Operator Name Role Phone Pedro [place]iam MD Primary Care Provide r Reason for Visit * Reason Onset Date Comments Med Refill 2023 Encounter Details Date Type Department Care Team (Late st Contact Info) Description 2023 Refill [facility] [address] [place], [place] [phone] Pedro Pulliam MD [address] [place], [place] [phone] Atrial fibrillation, unspecified type (CMS/HCC) (Primary Dx) [...] Description 01/11/2025 1:15 PM EST Office Visit [facility] [address] [place], [place] [phone] Pedro Pulliam MD [address] [place], [place] [phone] documented as of this encounter Visit Diagnoses Diagnosis Atrial fibrillation, unspecified type (CMS/HCC)- Primary documented in this encounter Care Teams Leaf Sucker Operator Relationship Specialty Start Date End Date Pedro [place]iam MD [address] [place] [address] PCP - General Internal Medicine 09/10/14 documented as of this encounter
--- OUTSIDE RECORDS SUMMARY | 2024-12-20 14:18 | XMS_ITS | Encounter Summary ---
Author Organization [employer] Address [address] [place] [address] Care Team Providers Care Food Preservation Scientist Name Role Phone Pedro [place] MD Primary Care Provide r Reason for Visit * Reason Comments Med Refill Encounter Details Date Type Department Care Team ([facility] st Contact Info) Description 06/02/2024 Refill [facility] [address] [place], [place] [phone] Pedro Pulliam MD [address] [place], [place] [phone] Primary hypertension; Stage 3 chronic kidney disease, [...] Description 01/11/2025 1:15 PM EST Office Visit [facility] [address] [place] [address] Pedro Pulliam MD [address] [place] [address] documented as of this encounter Visit Diagnoses Diagnosis Primary hypertension Unspecified essential hypertension Stage 3 chronic kidney disease, unspecified whether stage 3a or 3b CKD (CMS/HCC) Nonrheumatic tricuspid valve regurgitation documented in this encounter Additional Health Concerns Assessment Noted Time PHQ-9 Depression Total Score: 1 09/23/20 23 1:21 PM EST documented as of this encounter Care Teams Food Preservation Scientist Relationship Specialty Start Date End Date Pedro [place] MD [address] [place] [address] PCP - General Internal Medicine 09/10/14 documented as of this encounter
--- OUTSIDE RECORDS SUMMARY | 2024-12-20 14:18 | XMS_ITS | Encounter Summary ---
Author Organization [employer] [facility] Address [address]t [place] [address] Care Team Providers Care Automotive Product Specialist Name Role Phone Pedro [place] MD Primary Care Provide r Encounter Details Date Type Department Care Team (Late st Contact Info) Description 02/25/2023 Orders Only [facility] [address] [place] [address] Shanita Pfeiffer LPN Social History Tobacco Use [...] Description 01/11/2025 1:15 PM EST Office Visit [facility] [address] [place] [phone] Pedro Pluliam MD [address] [place] [address] documented as of this encounter Visit Diagnoses Not on filedocumented in this encounter Care Teams Automotive Product Specialist Relationship Specialty Start Date End Date Pedro Pulliam MD [address] [place] [address] PCP - General Internal Medicine 09/10/14 documented as of this encounter
== END 2024-12-20 13:19 | disposition home or self-care (01) ==
LOC: HO.ACS 12:58
PROVIDERS: PCP Internal Medicine; Visit Provider Internal Medicine
DX: Z79.01 Long term (current) use of anticoagulants (principal)

== ENCOUNTER → 2024-12-20 12:58 | Outpatient (BNVA) | payer OTHER, SELFPAY | PROVIDERS: PCP Internal Medicine; Visit Provider Internal Medicine | DX: I48.0 Paroxysmal atrial fibrillation (principal); Z79.01 Long term (current) use of anticoagulants; Z51.81 Encounter for therapeutic drug level monitoring | CPT/HCPCS: 85610; 99211 ==

== ENCOUNTER 2025-01-10 13:01 | Outpatient (AMB) | payer OTHER, SELFPAY ==
[2025-01-10 13:07] LABS: Prothrombin Time Whole Bld POC 25.7 sec (11.1-13.5); ~PT, ~INR - Anti Coag Clinic 2.1 (0.9-1.1)
--- NOTE | 2025-01-10 13:11 | MHC.OFFVISCO ---
Intake Intake Visit Reasons: Anticoagulation Allergies No Known Allergies [No Known Allergies*] Allergy (Verified 01/10/25 13:02) Medication List - Last Reconciled 01/10/25 by Neena Boyce RN amlodipine 5 mg PO DAILY aspirin 81 mg PO DAILY atorvastatin 80 mg PO BEDTIME cholecalciferol (vitamin D3) 25 mcg PO DAILY dorzolamide-timolol 22.3-6.8 mg/mL 22.3 drps ophthalmic (eye) BID ferrous sulfate (FeroSul) 1 tab PO DAILY furosemide 40 mg PO DAILY iron sucrose (Venofer) 200 mg IV Q3D lisinopril 40 mg PO DAILY octreotide acetate (Mycapssa) 20 mg PO DAILY travoprost 0.004% 1 drp ophthalmic (eye) BEDTIME warfarin 5 mg See Protocol PO DAILY Nursing Note NO CP,SOB,DIET/MED CHANGES,FALLS OR SX OF BLEEDING. CONTINUE PRESENT DOSE AND FOLLOW-UP IN 4 WEEKS GOOD UNDERSTANDING OF DOSING INSTR. Anti-Coag Initial Assessment Social Hx Patient Tobacco Use Status: Former Tobacco user Tobacco use type: Cigarette alcohol intake: former Alcohol intake frequency: does not drink Coding Level of Care Code Est Patient Level 1 Diagnoses Current use of anticoagulant therapy Z79.01 Results AMB INR Fingerstick AMB INR Fingerstick 2.1 Last Edit by Neena Boyce RN on 01/10/25 13:08 Assessment & Plan Assessment & Plan (1) Current use of anticoagulant therapy: Comment: warfarin-Otto Margarette- need to confirm ok to stop 5 days prior to colonoscopy-unable to send note through expanse Patient aware this must be confirmed, there were no major barriers to understanding identified Code(s): Z79.01 - [facility] (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
--- OUTSIDE RECORDS SUMMARY | 2025-01-10 15:24 | XMS_ITS | Encounter Summary ---
Author Organization [employer] [facility] Address [address] 7t [place] [address] Care Team Providers Care Christmas Tree Farm Crew Boss Name Role Phone Pedro Pulliam MD Primary Care Provide r Encounter Details Date Type Department Care Team (Late st Contact Info) Description 02/01/2023 Orders Only [facility] [address] [place], [place] [phone] Shira Castano LPN Social History Tobacco Use [...] 01/11/2025 1:15 PM EST Office Visit [facility] [address] [place] [address] Pedro Pulliam MD [address] [place] [address] documented as of this encounter Visit Diagnoses Not on filedocumented in this encounter Care Teams Christmas Tree Farm Crew Boss Relationship Specialty Start Date End Date Pedro Pulliam MD [address] [place] [address] PCP - General Internal Medicine 09/10/14 documented as of this encounter
--- OUTSIDE RECORDS SUMMARY | 2025-01-10 15:24 | XMS_ITS | Encounter Summary ---
Author Organization [employer] Address [address] [place] [address] Care Team Providers Care Territory Manager General Sales Name Role Phone Pedro Pulliam MD Primary Care Provide r Reason for Visit * Reason Comments Med Refill Encounter Details Date Type Department Care Team ([facility] st Contact Info) Description 06/02/2024 Refill [facility] [address] [place], [place] [phone] Pedro Pulliam MD [address] [place], [place] [phone] Primary hypertension; Stage 3 chronic kidney disease, [...] Description 01/11/2025 1:15 PM EST Office Visit [facility] [address] [place] [address] Pedro Pulliam MD [address] [place] [address] documented as of this encounter Visit Diagnoses Diagnosis Primary hypertension Unspecified essential hypertension Stage 3 chronic kidney disease, unspecified whether stage 3a or 3b CKD (CMS/HCC) Nonrheumatic tricuspid valve regurgitation documented in this encounter Additional Health Concerns Assessment Noted Time PHQ-9 Depression Total Score: 1 09/23/20 23 1:21 PM EST documented as of this encounter Care Teams Territory Manager General Sales Relationship Specialty Start Date End Date Pedro Pulliam MD [address] [place] [address] PCP - General Internal Medicine 09/10/14 documented as of this encounter
--- OUTSIDE RECORDS SUMMARY | 2025-01-10 15:24 | XMS_ITS | Encounter Summary ---
Author Organization [employer] Address [address] [place] [address] Care Team Providers Care Penology Teacher Name Role Phone Pedro Pulliam MD Primary Care Provide r Reason for Visit * Reason Comments Pre-visit Planning SDOH Screening negat renata and Tobacco screening negative Encounter Details Date Type Department Care Team ([facility] st Contact Info) Description 01/02/[address] [facility] [address] [place], [place] [phone] Pedro Pulliam MD [address] [place], [place] [phone] Pre-visit Planning (SDOH Screening negative and Tobacco screening negative) Social History Tobacco Use Types Packs/Day Years [...] Access Answer Date Recorded Internet Access Q1 Yes 01/02/2025 Internet Access Q2 I do not want or need it 12/10 Sex and Gender Information Value Date Recorded Sex Assigned at Male 09/07/2022 10:17 AM EDT Legal Sex Male 10:17 AM EDT Gender Identity Male 09/07/2022 10:17 AM EDT Sexual Orientation Straight 09/07/2022 10 :17 AM EDT documented as of this encounter Progress Notes * Arianne Meier - 01/02/2025 2:05 PM EST CC Arianne Hooper placed successful outbound call to patient for pre-visit planning. Patient name and confirmed. Patient confirms appt date and time, and has transportation arrangements. Biggest concern for appointment at this time is no concerns. Patient advised to bring to appointment a photo id and insurance card. Appropriate screenings completed in anticipation of appointment. documented in this encounter Plan of Treatment Upcoming Encounters Date Type Department Care Team (Late st Contact Info) Description 01/11/2025 1:15 PM EST Office Visit [facility] [address] [place] [address] Pedro Pulliam MD [address] [place] [address] documented as of this encounter Visit Diagnoses Not on filedocumented in this encounter Additional Health Concerns Assessment Noted Time PHQ-9 Depression Total Score: 0 10/17/20 24 1:50 PM EST documented as of this encounter Care Teams Penology Teacher Relationship Specialty Start Date End Date Pedro Pulliam MD [address] [place] [address] PCP - General Internal Medicine 09/10/14 documented as of this encounter
--- OUTSIDE RECORDS SUMMARY | 2025-01-10 15:24 | XMS_ITS | Clinical Summary ---
Author Organization [employer] [facility] Address [address] [address] Care Team Providers Care Industrial Cleaning Technician Name Role Phone Pedro Snow MD Primary [...] age to complete this topic Care Teams Industrial Cleaning Technician Relationship Specialty Start Date End Date Pedro Snow MD PCP - General 11/18/20
--- OUTSIDE RECORDS SUMMARY | 2025-01-10 15:24 | XMS_ITS | Encounter Summary ---
Author Organization [employer] Address [address] [place] [address] Care Team Providers Care Car Servicer Name Role Phone Pedro Pulliam MD Primary Care Provide r Reason for Visit * Reason Onset Date Comments OV 03/1602/17/2024 Encounter Details Date Type Department Care Team ([facility] st Contact Info) Description 02/17/2024 Telephone [facility] [address] [place], [place] [phone] Pedro Pulliam MD [address] [place], [place] [phone] OV 03/16 Social History Tobacco Use Types [...] any questions you can contact pt at [phone]. documented in this encounter Plan of Treatment Upcoming Encounters Date Type Department Care Team (Late st Contact Info) Description 01/11/2025 1:15 PM EST Office Visit [facility] [address] [place] [address] Pedro Pulliam MD [address] [place] [address] documented as of this encounter Visit Diagnoses Not on filedocumented in this encounter Additional Health Concerns Assessment Noted Time PHQ-9 Depression Total Score: 1 09/23/20 23 1:21 PM EST documented as of this encounter Care Teams Car Servicer Relationship Specialty Start Date End Date Pedro Pulliam MD [address] [place] [address] PCP - General Internal Medicine 09/10/14 documented as of this encounter
--- OUTSIDE RECORDS SUMMARY | 2025-01-10 15:24 | XMS_ITS | Clinical Summary ---
Author Organization [facility] Address [address] [place] [address] Care Team Providers Care Engine House Helper Name Role Phone Unavailable Primary Care Provider [...] DTaP,Tdap,and Td Vaccines (1 - Tdap) 1965 Pneumococcal Vaccine: 50+ Ye ars (1 of 1 - PCV) 1996 Zoster Vaccines (1 of 2) 1996 RSV Immunization Patients 60 + Years Old [...] patient's age to complete this topic Meningococcal B Vacine Aged Out No lo nger eligible based on patient's age to complete this topic RSV Immunization Patients Un leigh 20 months Aged Out No longer eligible b ased on patient's age to complete this topic Varicella Vaccines Aged Out No longer eligible based on patient's age to complete this topic Advance Directives Documents on File Type Date Recorded Patient Account Administrator Expl anation Health Care Decision (hx) 01/10/2020 AD PHILLIP DIRECTIVE
--- OUTSIDE RECORDS SUMMARY | 2025-01-10 15:24 | XMS_ITS | Encounter Summary ---
Author Organization [employer] Address [address] [place] [address] Care Team Providers Care Director Underwriter Sales Name Role Phone Pedro Pulliam MD Primary Care Provide r Encounter Details Date Type Department Care Team ([facility] st Contact Info) Description 05/31/2024 Telephone [facility] [address] [place], [place] [phone] Pedro Pulliam MD [address] [place], [place] [phone] Social History Tobacco Use Types Packs/Day Years [...] line 05/31/24 at 1:21 PM Name of Caller/Facility:[facility] Callback number: [phone] Reason for Call: INR 1.4 no missed [...] Description 01/11/2025 1:15 PM EST Office Visit [facility] [address] [place] [address] Pedro Pulliam MD [address] [place] [address] documented as of this encounter Visit Diagnoses Not on filedocumented in this encounter Additional Health Concerns Assessment Noted Time PHQ-9 Depression Total Score: 1 09/23/20 23 1:21 PM EST documented as of this encounter Care Teams Director Underwriter Sales Relationship Specialty Start Date End Date Pedro Pulliam MD [address] [place] [address] PCP - General Internal Medicine 09/10/14 documented as of this encounter
--- OUTSIDE RECORDS SUMMARY | 2025-01-10 15:24 | XMS_ITS | Encounter Summary ---
Author Organization [employer] [facility] Address [address] [facility] [facility] [address]t [place] [address] Care Team Providers Care Nailhead Setter Name Role Phone Pedro Pulliam MD Primary Care Provide r Encounter Details Date Type Department Care Team (Late st Contact Info) Description 01/06/2023 Orders Only [facility] [address] [place], [place] [phone] Shira Castano LPN Social History Tobacco Use [...] Description 01/11/2025 1:15 PM EST Office Visit [facility] [address] [place] [address] Pedro Pulliam MD [address] [place] [address] documented as of this encounter Visit Diagnoses Not on filedocumented in this encounter Care Teams Nailhead Setter Relationship Specialty Start Date End Date Pedro Pulliam MD [address] [place] [address] PCP - General Internal Medicine 09/10/14 documented as of this encounter
--- OUTSIDE RECORDS SUMMARY | 2025-01-10 15:24 | XMS_ITS | Encounter Summary ---
Author Organization [employer] Address [address] [place] [address] Care Team Providers Care Greaser And Oiler Name Role Phone Pedro Pulliam MD Primary Care Provide r Encounter Details Date Type Department Care Team (Late st Contact Info) Description 01/10/2025 Orders Only GENERIC EXTERNAL DATA DEPARTMENT Provider, [...] Description 01/11/2025 1:15 PM EST Office Visit [facility] [address] [place] [phone] Pedro Pulliam MD [address] [place] [address] documented as of this encounter Procedures Procedure Name Priority Date/Time Associated Diagnosis Comments PROTHROMBIN TIME WHOLE BLD POC Routine 01/10/2025 1:05 PM EST ~PT, ~INR - ANTI COAG CLINIC Routine 01/10/2025 1:05 PM EST documented in this encounter Results * (ABNORMAL) PROTHROMBIN TIME WHOLE BLD POC (01/10/2025 1:05 PM EST) Protime 25.7(H) 11.1 - 13.5 sec [facility] 01/10/2025 1:05 PM EST 01/10/2025 1:07 PM EST us Generic External Data Provider LAB BLOOD ORDERAB LES Final Result [facility] [address] [place] [phone] * (ABNORMAL) ~PT, ~INR - ANTI COAG CLINIC (01/10/2025 1:05 PM EST) Prothrombin Time INR 2.1(H) 0.9 - 1.1 [facility] Comment:METER #: [id number] TERNATIONAL NORMALIZED RATIO (INR) REFERENCE RANGES Reference RangeFor patients not on anticoagulant therapy: 0.9 - 1.1INR ranges for oral anticoagulanttherapy:For prevention and treatment of venous thrombosis and pulmonary embolism: 2.0 - 3.0For acute myocardial infarction with aspirin therapy: 2.0 - 3.0For acute myocardial infarction without aspirin therapy: 3.0 - 4.0For patients with mechanical prosthetic heart valves: 2.5 - 3.5 01/10/2025 1:05 PM EST 01/10/2025 1:07 PM EST us Generic External Data Provider LAB BLOOD ORDERAB LES Final Result [facility] [address] [place] [phone] documented in this encounter Visit Diagnoses Not on filedocumented in this encounter Additional Health Concerns Assessment Noted Time PHQ-9 Depression Total Score: 0 10/17/20 24 1:50 PM EST documented as of this encounter Care Teams Greaser And Oiler Relationship Specialty Start Date End Date Pedro Pulliam MD [address] [place] [phone] PCP - General Internal Medicine 09/10/14 documented as of this encounter
--- OUTSIDE RECORDS SUMMARY | 2025-01-10 15:24 | XMS_ITS | Encounter Summary ---
Author Organization [email or web address] Address [address] [place] [address] Care Team Providers Care Personal Attendant Name Role Phone Pedro Pulliam MD Primary Care Provide r Reason for Visit * Reason Onset Date Comments follow up needed 11/20/2024 Encounter Details Date Type Department Care Team ([facility] st Contact Info) Description 11/20/2024 Telephone [facility] [address] [place], [place] [phone] Pedro Pulliam MD [address] [place], [place] [phone] follow up needed Social History Tobacco Use [...] 11/21/2024 10:42 AM EST TC placed to [facility] Plastic Surgery office and [...] 12:47 PM EST Tc from Randa with [facility] plastic surgery reporting that they saw pt [...] 01/11/2025 1:15 PM EST Office Visit [facility] [address] [place] [address] Pedro Pulliam MD [address] [place] [address] documented as of this encounter Visit Diagnoses Not on filedocumented in this encounter Additional Health Concerns Assessment Noted Time PHQ-9 Depression Total Score: 0 10/17/20 24 1:50 PM EST documented as of this encounter Care Teams Personal Attendant Relationship Specialty Start Date End Date Pedro Pulliam MD [address] [place] [address] PCP - General Internal Medicine 09/10/14 documented as of this encounter
--- OUTSIDE RECORDS SUMMARY | 2025-01-10 15:24 | XMS_ITS | Encounter Summary ---
Author Organization [employer] Address [address] 7[address] [place] [address] Care Team Providers Care Molding Machine Setter Name Role Phone Pedro Pulliam MD [...] Description 01/11/2025 1:15 PM EST Office Visit [facility] [address] [place] [address] Pedro Pulliam MD [address] [place] [address] documented as of this encounter Procedures Procedure Name Priority Date/Time Associated Diagnosis Comments PROTHROMBIN TIME WHOLE BLD POC Routine 12/20/2024 1:06 PM EST ~PT, ~INR - ANTI COAG CLINIC Routine 12/20/2024 1:06 PM EST documented in this encounter Results * (ABNORMAL) PROTHROMBIN TIME WHOLE BLD POC (12/20/2024 1:06 PM EST) Protime 21.3(H) 11.1 - 13.5 sec [facility] 12/20/2024 1:06 PM EST 12/20/2024 1:08 PM EST us Generic External Data Provider LAB BLOOD ORDERAB LES Final Result [facility] [address] [place] [address] [phone] * (ABNORMAL) ~PT, ~INR - ANTI COAG CLINIC (12/20/2024 1:06 PM EST) Prothrombin Time INR 1.8(H) 0.9 - 1.1 [facility] Comment:METER #: [id number] TERNATIONAL NORMALIZED RATIO (INR) REFERENCE RANGES Reference [...] Provider LAB BLOOD ORDERAB LES Final Result [facility] [address] [place] [phone] documented in this encounter Visit Diagnoses Not on filedocumented in this encounter Additional Health Concerns Assessment Noted Time PHQ-9 Depression Total Score: 0 10/17/20 24 1:50 PM EST documented as of this encounter Care Teams Molding Machine Setter Relationship Specialty Start Date End Date Pedro Pulliam MD [address] [place] [address] PCP - General Internal Medicine 09/10/14 documented as of this encounter
--- OUTSIDE RECORDS SUMMARY | 2025-01-10 15:24 | XMS_ITS | Encounter Summary ---
Author Organization [employer] [facility] Address [address] [facility] 7t [place] [address] Care Team Providers Care Newswriter Name Role Phone Pedro Pulliam MD Primary Care Provide r Encounter Details Date Type Department Care Team (Late st Contact Info) Description 05/31/2023 Orders Only [facility] [address] [place] [phone] Shanita Pfeiffer LPN Social History Tobacco Use [...] [facility] [address] [place] [phone] Pedro Pulliam MD [address] [place] [phone] documented as of this encounter Visit Diagnoses Not on filedocumented in this encounter Care Teams Newswriter Relationship Specialty Start Date End Date Pedro Pulliam MD [address] [place] [phone] PCP - General Internal Medicine 09/10/14 documented as of this encounter
--- OUTSIDE RECORDS SUMMARY | 2025-01-10 15:24 | XMS_ITS | Encounter Summary ---
Author Organization [employer] [facility] Address [address] [facility] [address] 7t [place] [address] Care Team Providers Care Ruling Technician Name Role Phone Pedro Pulliam MD Primary Care Provide r Encounter Details Date Type Department Care Team (Late st Contact Info) Description 02/25/2023 Orders Only [facility] [address] [place] [phone] Shanita Pfeiffer LPN Social History Tobacco Use [...] Description 01/11/2025 1:15 PM EST Office Visit [facility] [address] [place] [phone] Pedro Pulliam MD [address] [place] [phone] documented as of this encounter Visit Diagnoses Not on filedocumented in this encounter Care Teams Ruling Technician Relationship Specialty Start Date End Date Pedro Pulliam MD [address] [place] [phone] PCP - General Internal Medicine 09/10/14 documented as of this encounter
--- OUTSIDE RECORDS SUMMARY | 2025-01-10 15:24 | XMS_ITS | Clinical Summary ---
Author Organization [employer] Address [address] [place] [address] Care Team Providers Care Oracle Hyperion Consultant Name Role Phone Pedro Pulliam MD [...] showed diverticulosis only by Dr connors at [facility] Mixed hyperlipidemia 08/13/2015 09/15/2023 Assessment & Plan [...] the past by his vascular surgeon at [facility] (Dr Lind) whose recommendation was conservative treatment, he saw NO role for any type of surgical intervention. He recommended to repeat the scan in 1 year and continue to take Asa 81 mg po daily. Pt was last seen by his ultrasound supervisor at [facility] 09/14/2023 recommended repeat US and ECHO and [...] and lasix 20 mg daily prescribed by Museum Specialist. I had recently lowered his Lasix due [...] Am and 20 mg PM prescribed by Museum Specialist. I had recently lowered his Lasix due [...] Am and 20 mg PM prescribed by Museum Specialist. Pt developed some bilateral ankle edema due [...] Furosemide 20 mg po BID prescribed by Museum Specialist. Pt developed some bilateral ankle edema due [...] Furosemide 20 mg po BID prescribed by Museum Specialist. Pt developed some bilateral ankle edema due [...] clinical impression. Plan: Breast center referral at [facility] Assessment & Plan (02/01/2024 1:36 PM EDT): [...] Encounters Date Type Department Care Team Description 01/10/2025 Orders Only GENERIC EXTERNAL DATA DEPARTMENT Provider, Generic External Data 01/02/2025 Patient Outreach [facility] [address] [place] [phone] Pedro Pulliam MD Pre-visit Planning (SDOH Screening negative and Tobacco screening negative) 12/28/2024 Telephone [facility] [address] [place] [address] Pedro Pulliam MD Chart Prep 12/20/2024 Orders Only GENERIC EXTERNAL DATA DEPARTMENT Provider, Generic External Data 11/29/2024 Orders Only GENERIC EXTERNAL DATA DEPARTMENT Provider, Generic External Data 11/20/2024 Telephone [facility] [address] [place] [phone] Pedro Pulliam MD follow up needed 11/06/2024 Orders Only GENERIC EXTERNAL DATA DEPARTMENT Provider, Generic External Data 10/27/2024 Orders Only GENERIC EXTERNAL DATA DEPARTMENT Provider, Generic External Data 10/17/2024 2:00 PM EST Office Visit [facility] [address] [place] [address] Pedro Pulliam MD Primary hypertension (Primary Dx); Stage 3b chronic kidney disease (CMS/HCC); Longstanding persistent atrial fibrillation (CMS/HCC); Iron deficiency anemia, unspecified iron deficiency anemia type; Benign prostatic hyperplasia without lower urinary tract symptoms; Preventative health care 10/17/2024 Orders Only GENERIC EXTERNAL DATA DEPARTMENT Provider, Generic External Data 10/17/2024 Travel from Last 3 Months Immunizations Name Administration [...] Description 01/11/2025 1:15 PM EST Office Visit [facility] [address] [place] [address] Pedro Pulliam MD [address] [place], [place] [phone] Health Maintenance Due Date Last Done Comments Zoster Vaccines (3 of 3) 03/04/2020 01/08/2020, 02/07 RSV Patients and Patients Aged 60 years or older (1 - 1-dose 75+ series) 2021 COVID-19 Vaccine ( season) 2024 11/11/2021, 03/05/2021, 02/05/2021 Mammogram 04/11/2025 04/11/2024, 04/11/2024 Alcohol/Substance Use Screening 10/17/2025 10/17/2024 Depression Screening 10/17/2025 10/17/2024, 10/17/20 Tobacco Screening 10/17/2025 10/17/2024 SDOH Screening 01/02/2026 01/02/2025 Lipid Panel 10/12/2028 10/12/2023, 12/09, 03/14/2021, Additional [...] COAG CLINIC Routine 01/10/2025 1:05 PM EST PROTHROMBIN TIME WHOLE BLD POC Routine 12/20/2024 [...] COAG CLINIC Routine 10/17/2024 2:21 PM EST BI MAMMOGRAM DIAGNOSTIC TOMOSYNTHESIS BILATERAL [...] WHOLE BLD POC (01/10/2025 1:05 PM EST) Only the most recent of6 resultswithin the time period is included. Protime 25.7(H) 11.1 - 13.5 sec [facility] 01/10/2025 1:05 PM EST 01/10/2025 1:07 PM EST us Generic External Data Provider LAB BLOOD ORDERAB LES Final Result [facility] [address] [place] [phone] * (ABNORMAL) ~PT, ~INR - ANTI COAG CLINIC (01/10/2025 1:05 PM EST) Only the most recent of6 resultswithin the time period is included. Prothrombin Time INR 2.1(H) 0.9 - 1.1 [facility] Comment:METER #: [id number] TERNATIONAL NORMALIZED RATIO (INR) REFERENCE RANGES Reference [...] Provider LAB BLOOD ORDERAB LES Final Result [facility] [address] [place] [phone] * BI Mammogram Diagnostic Tomosynthesis Bilateral (04/11/2024 3:15 PM EDT) Anatomical Region Laterality Modality Breast Bilateral Mammography 04/11/2024 3:15 PM EDT Narrative 04/11/2024 4:59 PM EDT ? [facility] [place] ? [address] ?[place] [address] ? Mammography Report ? Signed ? Patient: Pablo Quinteros,Jamie ?MR#: ?? [id number] ? : 1945 ?Acct:[id number] ? Age/Sex: 79 / M ?ADM Date: 04/11/24 ? Loc: HO.MAMMO ? Attending Dr: Pedro Webber MD ? Ordering Physician: Pedro Webber MD ?Resu ?? lts: 2Benign Findings ? Date of Service: 04/11/24 ?Follow Up: 1 Year From Orig ?? inal Mammogram ? Procedure(s): MM tomosynthesis diagnostic BI ?? Accession Number(s): [id number] ? cc: Pedro Webber MD ? EXAMINATION: [...] MD ? Signed By: ?<Electronically signed by MiguelA Bradley MD in OV> ?04/11/244 ? DD/ 1515 ? TD/TT: ? Industrial Hire Sales Assistant: ? Procedure Note Fran, Image - 04/11/2024 Mike [facility] [address] [place] [address] Mammography Report Signed Patient: Rik Carpio#: [id number] : 6Acct:[id number] Age/Sex: 79 / MADM Date: 04/11/24 Loc: [facility] Attending Dr: Pedro Webber MD Ordering Physician: Pedro Webber MDResu lts: 2Benign Findings Date of Service: 04/11/24Follow Up: 1 Year From Orig inal Mammogram Procedure(s): MM tomosynthesis diagnostic BI Accession Number(s): [id number] cc: Pedro Webber MD EXAMINATION: MM DIAGNOSTIC [...] Miguel A Bradley MD in OV> 04/11/24 2324 DD/ 1515 TD/TT: Industrial Hire Sales Assistant: us Pedro Julian MD IMG BI PROCEDURES Fin al Result * (ABNORMAL) Lipid Panel with Reflex to Direct LDL (10/12/2023 8:50 AM EST) Triglycerides 40 <150 mg/dL [facility] Comment:Desirable Triglyceri de: less than 150 mg/dLBorderline High Triglyceride 150-199 mg/dLHigh Triglyceride: 200-499 mg/dLVery High Triglyceride: greater than or equal to 5OO mg/dL Cholesterol 94 <200 mg/dL [facility] Comment:Desirable Cholestero l: less than 200 mg/dLBorderline High Cholesterol: 200-239 mg/dLHigh Cholesterol: greater than 239 mg/dL LDL Cholesterol Calculated 62 <100 mg/dL [facility] Comment:Desirable LDL: less than 100 mg/dLNear Optimal/Above Optimal LDL: 110- 129 mg/dLBorderline High LDL: 130-159 mg/dLHigh LDL: 160-189 mg/dLVery High LDL: greater than or equal to 190 mg/dL HDL Cholesterol 24(L) >40 mg/dL [facility] Comment:Desirable HDL: great er than 40 mg/dL Note: This HDL assay may give artificially low results in patients with liver disease. Blood 10/12/2023 8:50 AM EST 10/12/2023 10:56 AM EST Pedro Julian MD LAB BLOOD ORDERABLES Final Result [facility] [address] [place] [phone] * HEPATITIS C AB W/REFL TO HCV RNA, QN, PCR (12/24/2021 8:24 AM EST) HEPATITIS C ANTIBODY NON-REACT SIL NON-REACT SIL [facility] INDEX 0.01 <1.00 [facility] Comment: ?? HCV antibody was non-reactive. There is no laboratory ?? evidence of HCV infection. ?? In most cases, no further action is required. However, if recent HCV exposure is suspected, a test for HCV RNA (test code 23920) is suggested. ?? For additional information please refer to http://education.[employer]all[employer]ch/faq/VBZ69u6 (This link is being provided for informational/ educational purposes only.) ?? 12/24/2021 8:24 AM EST Pedro Julian MD HISTORICAL/NON ORDERA BLE LABS Final Result [facility] [address] from Last 3 Months or Most Recently Relevant to Health Maintenance Insurance [facility] Care Teams Oracle Hyperion Consultant Relationship Specialty Start Date End Date Pedro Pulliam MD [address] [place] [phone] PCP - General Internal Medicine 09/10/14
--- OUTSIDE RECORDS SUMMARY | 2025-01-10 15:24 | XMS_ITS | Encounter Summary ---
Author Organization [employer] [facility] Address [address] [facility] [address] [facility] 7t [place] [address] Care Team Providers Care Linux Solaris Administrator Name Role Phone Pedro Pulliam MD Primary Care Provide r Reason for Visit * Reason Onset Date Comments Med Refill 2023 Encounter Details Date Type Department Care Team (Late st Contact Info) Description 2023 Refill [facility] [address] [place], [place] [phone] Pedro Pulliam MD [address] [place], [place] [phone] Atrial fibrillation, unspecified type (CMS/HCC) (Primary Dx) [...] EST Office Visit [facility] [address] [place], [place] [phone] Pedro Pulliam MD [address] [place], [place] [phone] documented as of this encounter Visit Diagnoses Diagnosis Atrial fibrillation, unspecified type (CMS/HCC)- Primary documented in this encounter Care Teams Linux Solaris Administrator Relationship Specialty Start Date End Date Pedro Pulliam MD [address] [place] [address] PCP - General Internal Medicine 09/10/14 documented as of this encounter
--- OUTSIDE RECORDS SUMMARY | 2025-01-10 15:24 | XMS_ITS | Encounter Summary ---
Author Organization [employer] Address [address]t [place] [address] Care Team Providers Care Telemedicine Physician Name Role Phone Pedro Pulliam MD Primary Care Provide r Reason for Visit * Reason Onset Date Comments Chart Prep 12/28/2024 Encounter Details Date Type Department Care Team ([facility] st Contact Info) Description 12/28/2024 Telephone [facility] [address] [place], [place] [phone] Pedro Pulliam MD [address] [place], [place] [phone] Chart Prep Social History Tobacco Use Types Packs/Day Years [...] encounter Miscellaneous Notes * Telephone Encounter - Bridgett Yuen [place] - 12/28/2024 11:30 AM EST Chart Prep Labs: not applicable Images: not applicable Vaccines due: Covid Due, RSV in Pharmacy Due, and Shingles in pharmacy Due Referrals: Completed Screenings: Not Applicable Overdue care gaps: None Chart prep for upcoming appt with Dr.Esparza kirkland. LB documented in this encounter Plan of Treatment Upcoming Encounters Date Type Department Care Team (Late st Contact Info) Description 01/11/2025 1:15 PM EST Office Visit [facility] [address] [place] [phone] Pedro Pulliam MD [address] [place] [phone] documented as of this encounter Visit Diagnoses Not on filedocumented in this encounter Additional Health Concerns Assessment Noted Time PHQ-9 Depression Total Score: 0 10/17/20 24 1:50 PM EST documented as of this encounter Care Teams Telemedicine Physician Relationship Specialty Start Date End Date Pedro Pulliam MD [address] [place] [address] PCP - General Internal Medicine 09/10/14 documented as of this encounter
== END 2025-01-10 13:15 | disposition home or self-care (01) ==
LOC: HO.ACS 13:01
PROVIDERS: PCP Internal Medicine; Visit Provider Internal Medicine
DX: Z79.01 Long term (current) use of anticoagulants (principal)

== ENCOUNTER → 2025-01-10 13:01 | Outpatient (BNVA) | payer OTHER, SELFPAY | PROVIDERS: PCP Internal Medicine; Visit Provider Internal Medicine | DX: I48.0 Paroxysmal atrial fibrillation (principal); Z79.01 Long term (current) use of anticoagulants; Z51.81 Encounter for therapeutic drug level monitoring | CPT/HCPCS: 85610; 99211 ==

== ENCOUNTER 2025-01-16 08:11 | Outpatient (REF) | payer OTHER, SELFPAY ==
--- OUTSIDE RECORDS SUMMARY | 2025-01-16 08:41 | XMS_ITS | Encounter Summary ---
Author Organization [employer] [facility] Address [address] [facility] [address] [place] [address] Care Team Providers Care Applier Name Role Phone Pedro Pulliam MD Primary Care Provide r Reason for Referral * Imaging (Routine) - Authorized Specialty Diagnoses / Procedures Referred By Contac t Referred To Contact Radiology Diagnoses Gynecomastia Procedures US Scrotum Pedro Pulliam MD [address] [place] [address] Phone: tel: fax: [address] Phone: tel: fax: Referral ID Status Reason Start Date Expiration Date V isits Requested Visits Authorized [id number] Authorized 01/11/2025 01/11/2026 1 1 Reason for Visit * Reason Comments Hypertension Encounter Details Date Type Department Care Team (Latest Contact Info) Description 01/11/2025 1:15 PM EST Office Visit [facility] [address] [place], [place] [phone] Pedro Pulliam MD [address], [place] [phone] Primary hypertension (Primary Dx); KARINA (obstructive sleep apnea); Longstanding persistent atrial fibrillation (CMS/HCC); Gynecomastia; Stage 3b chronic kidney disease (CMS/HCC); Iron deficiency; Mixed hyperlipidemia Social History Tobacco Use Types Packs/Day Years [...] AM EDT documented as of this encounter Last Filed Vital Signs Vital Sign Reading Time Taken Comments Blood Pressure 138/76 01/11/2025 1:29 PM EST Pulse 55 01/11/2025 1:10 PM EST Temperature 36.1 ??C (96.9 ??F) 01/11/2025 1:10 PM ES T Respiratory Rate 20 01/11/2025 1:10 PM EST Oxygen Saturation 97% 01/11/2025 1:10 PM EST Inhaled Oxygen Concentration - - Weight 75.4 kg (166 lb 3.2 oz) 01/11/2025 1:10 P M EST Height 175.3 cm (5' 9 ) 01/11/2025 1:10 PM EST Body Mass Index 24.54 01/11/2025 1:10 PM EST documented in this encounter Progress Notes * Pedro Julian MD - 01/11/2025 1:15 PM EST SUBJECTIVE Jamie Quinteros is a 79 y.o. male who presents for Hypertension. Hypertension This is a chronic problem. Pertinent negatives include no chest pain, headaches or shortness of breath. Review of Systems Constitutional: Negative for fever. HENT: Negative for sore throat. Respiratory: Negative for cough and shortness of breath. Cardiovascular: Negative for chest pain. Gastrointestinal: Negative for abdominal pain. Neurological: Negative for headaches. No Known Allergies OBJECTIVE Vitals: 01/11/25 1310 01/11/25 1329 BP: (!) 141/62 138/76 BP Location: Left arm Left arm Patient Position: Sitting Sitting BP Cuff Size: Adult Pulse: 55 Resp: 20 Temp: 96.9 ??F (36.1 ??C) TempSrc: Temporal SpO2: 97% Weight: 166 lb 3.2 oz (75.4 kg) Height: 5' 9 (1.753 m) Physical Exam Vitals reviewed. Constitutional: Appearance: Normal appearance. HENT: Head: Normocephalic and atraumatic. Right Ear: External ear normal. Left Ear: External ear normal. Nose: Nose normal. Mouth/Throat: Mouth: Mucous membranes are moist. Eyes: Conjunctiva/sclera: Conjunctivae normal. Cardiovascular: Rate and Rhythm: Normal rate and regular rhythm. Pulmonary: Effort: Pulmonary effort is normal. Breath sounds: Normal breath sounds. Genitourinary: Penis: Normal and uncircumcised. No tenderness, swelling or lesions. Testes: Normal. Right: Mass not present. Left: Mass not present. Skin: General: Skin is warm. Neurological: Mental Status: He is alert. Mental status is at baseline. Assessment/Plan Problem List Items Addressed This Visit Hypertension - Primary Pt here for a f/u BP stable He is on a regimen of: Norvasc 5 mg daily, Lisinopril 40 mg po daily and lasix 20 mg daily prescribed by Process Safety Specialist. I had recently lowered his Lasix due to worsening renal function Pt developed some bilateral ankle edema due to Amlodipine Plan: Continue current regimen Most recent electrolytes, Bun and Creatinine Lab Results Component Value Date NA 142 07/31/2024 NA 141 06/27/2024 K 3.9 07/31/2024 K 4.8 06/27/2024 CL 111 (H) 07/31/2024 CL 110 (H) 06/27/2024 BUN 22 (H) 07/31/2024 BUN 19 (H) 06/27/2024 CREATININE 1.61 (H) 07/31/2024 CREATININE 1.66 (H) 06/27/2024 patient advised to adhere to a low sodium diet, encouraged about medication compliance, counseled about weight loss. 3 month f/u KARINA (obstructive sleep apnea) Seen at the sleep center 10/26/2024 Using Cpap with good results Atrial fibrillation (CMS/HCC) Pt feels good, no palpitations He is Chadsvasc 3 He is on Coumadin, under the care of the [facility]. pt is completely asymptomatic. Pt had a nuclear stress test that was negative Pt has ongoing f/u at the coumadin clinic and cardiology last note from Cardiology 11/30/2024. ECHO 08/17/2024 no significant change from previous EF 50-55% Gynecomastia Mammogram showed: IMPRESSION: -There is moderate to [...] be managed based on the clinical impression. Pt was seen by plastic surgeon who recommended endocrine work up Relevant Orders Testosterone, Free (Dialysis) And Total, MS Estradiol LH FSH Prolactin hCG, Total, Quantitative TSH with Reflex to Free T4 US Scrotum DHEA Sulfate Stage 3b chronic kidney disease (CMS/HCC) Used to be under the care of Nephrology, last seen 08/09/2024 Last BMP Lab Results Component Value Date NA 142 07/31/2024 NA 141 06/27/2024 K 3.9 07/31/2024 K 4.8 06/27/2024 CL 111 (H) 07/31/2024 CL 110 (H) 06/27/2024 BUN 22 (H) 07/31/2024 BUN 19 (H) 06/27/2024 CREATININE 1.61 (H) 07/31/2024 CREATININE 1.66 (H) 06/27/2024 Plan: Continue to follow with Nephrology Mixed hyperlipidemia Pt here for a f/u Most recent lipid profile from: 10/12/2023 Lab Results Component Value Date TRIG 40 10/12/2023 CHOL 94 10/12/2023 LDLCHOLCAL 62 10/12/2023 HDL 24 (L) 10/12/2023 Currently on a regimen of Atorvastatin 80mg po qhs Lipids at target advised to try to adhere to a low cholesterol diet, counseled and educated about diet and exercise Other Visit Diagnoses Iron deficiency documented in this encounter Miscellaneous Notes * Assessment & Plan Note - Pedro Julian MD - 01/11/2025 1:31 PM EST Associated Problem(s): Mixed hyperlipidemia Pt here for a f/u Most recent lipid profile from: 10/12/2023 Lab Results Component Value Date TRIG 40 10/12/2023 CHOL 94 10/12/2023 LDLCHOLCAL 62 10/12/2023 HDL 24 (L) 10/12/2023 Currently on a regimen of Atorvastatin 80mg po qhs Lipids at target advised to try to adhere to a low cholesterol diet, counseled and educated about diet and exercise * Assessment & Plan Note - Pedro Julian MD - 01/11/2025 1:24 PM EST Associated Problem(s): Stage 3b chronic kidney disease (CMS/HCC) Used to be under the care of Nephrology, last seen 08/09/2024 Last BMP Lab Results Component Value Date NA 142 07/31/2024 NA 141 06/27/2024 K 3.9 07/31/2024 K 4.8 06/27/2024 CL 111 (H) 07/31/2024 CL 110 (H) 06/27/2024 BUN 22 (H) 07/31/2024 BUN 19 (H) 06/27/2024 CREATININE 1.61 (H) 07/31/2024 CREATININE 1.66 (H) 06/27/2024 Plan: Continue to follow with Nephrology * Assessment & Plan Note - Pedro Julian MD - 01/11/2025 1:23 PM EST Associated Problem(s): Hypertension Pt here for a f/u BP stable He is on a regimen of: Norvasc 5 mg daily, Lisinopril 40 mg po daily and lasix 20 mg daily prescribed by Process Safety Specialist. I had recently lowered his Lasix due to worsening renal function Pt developed some bilateral ankle edema due to Amlodipine Plan: Continue current regimen Most recent electrolytes, Bun and Creatinine Lab Results Component Value Date NA 142 07/31/2024 NA 141 06/27/2024 K 3.9 07/31/2024 K 4.8 06/27/2024 CL 111 (H) 07/31/2024 CL 110 (H) 06/27/2024 BUN 22 (H) 07/31/2024 BUN 19 (H) 06/27/2024 CREATININE 1.61 (H) 07/31/2024 CREATININE 1.66 (H) 06/27/2024 patient advised to adhere to a low sodium diet, encouraged about medication compliance, counseled about weight loss. 3 month f/u * Assessment & Plan Note - Pedro Julian MD - 01/11/2025 1:23 PM EST Associated Problem(s): Gynecomastia Mammogram showed: IMPRESSION: -There is moderate to [...] be managed based on the clinical impression. Pt was seen by plastic surgeon who recommended endocrine work up * Assessment & Plan Note - Pedro Julian MD - 01/11/2025 1:18 PM EST Associated Problem(s): Atrial fibrillation (CMS/HCC) Pt feels good, no palpitations He is Chadsvasc 3 He is on Coumadin, under the care of the [facility]. pt is completely asymptomatic. Pt had a nuclear stress test that was negative Pt has ongoing f/u at the coumadin clinic and cardiology last note from Cardiology 11/30/2024. ECHO 08/17/2024 no significant change from previous EF 50-55% * Assessment & Plan Note - Pedro Julian MD - 01/11/2025 1:16 PM EST Associated Problem(s): KARINA (obstructive sleep apnea) Seen at the sleep center 10/26/2024 Using Cpap with good results documented in this encounter Plan of Treatment Upcoming Encounters Date Type Department Care Team (Late st Contact Info) Description 04/17/2025 1:15 PM EDT Office Visit [facility] [address] [place] [address] Pedro Pulliam MD [address] [facility] [place] [phone] Scheduled Orders Name Type Priority Associated Diagnoses Orde r Schedule Testosterone, Free (Dialysis) And Total, MS Lab Routine Gynecomastia Expected: 01/11/2025 (Approximate), Expires: 01/11/2026 Estradiol Lab Routine Gynecomastia Expected: 01/11/2025, Expires: 01/11/2026 LH Lab Routine Gynecomastia Expected: 01/11/2025 (Approximate), Expires: 01/11/2026 FSH Lab Routine Gynecomastia Expected: 01/11/2025, Expires: 01/11/2026 Prolactin Lab Routine Gynecomastia Expected: 01/11/2025 (Approximate), Expires: 01/11/2026 hCG, Total, Quantitative Lab Routine Gynecomastia Expected: 01/11/2025 (Approximate), Expires: 01/11/2026 TSH with Reflex to Free T4 Lab Routine Gynecomastia Ordered: 01/11/2025 US Scrotum Imaging Routine Gynecomastia Ordered: 01/11/2025 DHEA Sulfate Lab Routine Gynecomastia Expected: 01/11/2025 (Approximate), Expires: 01/11/2026 Lipid Panel, Standard Lab Routine Mixed hyperlipidemia Ordered: 01/11/2025 documented as of this encounter Visit Diagnoses Diagnosis Primary hypertension- Primary Unspecified essential hypertension KARINA (obstructive sleep apnea) Obstructive sleep apnea (adult) (pediatric) Longstanding persistent atrial fibrillation (CMS/HCC) Gynecomastia Hypertrophy of breast Stage 3b chronic kidney disease (CMS/HCC) Iron deficiency Disorders of iron metabolism Mixed hyperlipidemia documented in this encounter Additional Health Concerns Assessment Noted Time PHQ-9 Depression Total Score: 0 10/17/20 24 1:50 PM EST documented as of this encounter Care Teams Applier Relationship Specialty Start Date End Date Pedro Pulliam MD [address] [place] [id number] PCP - General Internal Medicine 09/10/14 documented as of this encounter
--- OUTSIDE RECORDS SUMMARY | 2025-01-16 08:41 | XMS_ITS | Encounter Summary ---
Author Organization [employer] [facility] Address [address] [facility] [address] [place] [address] Care Team Providers Care Employee Representative Name Role Phone Pedro Pulliam MD Primary Care Provide r Reason for Visit * Reason Onset Date Comments Referral 01/15/2025 Encounter Details Date Type Department Care Team ([facility] st Contact Info) Description 01/15/2025 Telephone [facility] [address] [place], [place] [phone] Pedro Pulliam MD [address] [place], [place] [phone] Referral Social History Tobacco Use Types Packs/Day [...] encounter Miscellaneous Notes * Telephone Encounter - Justa Christianson RN - 01/15/2025 1:56 PM EDT Telephone call returned to Amari regarding below message. No answer, left detailed v/m requesting more information. If Amari returns call please ask him what [employer] is. Is it a VNA company? And are they requesting outpatient PT or PT through their company (if they are VNA). I will need fax number to fax orders to if they want referral sent to them. Thank you! * Telephone Encounter - Gibson Faust - 01/15/2025 12:04 PM EDT Tc from Amari with [employer] requesting a referral for physical therapy for pt. If any questions you can contact Amari at [phone]. documented in this encounter Plan of Treatment Upcoming Encounters Date Type Department Care Team (Late st Contact Info) Description 04/17/2025 1:15 PM EDT Office Visit [facility] [address] [place] [address] Pedro Pulliam MD [address], [place] [phone] documented as of this encounter Visit Diagnoses Not on filedocumented in this encounter Additional Health Concerns Assessment Noted Time PHQ-9 Depression Total Score: 0 10/17/20 24 1:50 PM EST documented as of this encounter Care Teams Employee Representative Relationship Specialty Start Date End Date Pedro Pulliam MD [address] [place] [address] PCP - General Internal Medicine 09/10/14 documented as of this encounter
--- OUTSIDE RECORDS SUMMARY | 2025-01-16 08:41 | XMS_ITS | Clinical Summary ---
Author Organization [facility] Address [address] [place] [address] Care Team Providers Care Product Development Manager Name Role Phone Pedro Pulliam MD Primary Care Provide r Allergies No known active allergies Medications Aspirin Low Dose 81 MG EC tabletIndications :Primary hypertension TAKE 1 TABLET BY MOUTH EVERY DAY 30 tablet 6 11/30/19 24 Active warfarin (Coumadin) 5 MG tabletIndications :Atrial fibrillation, unspecified type (CMS/HCC) TAKE 1 TABLET BY MOUTH EVERY DAY DIRECTED BY [facility]INIC 90 tablet 02/10/20 24 Active cholecalciferol 25 MCG (1000 UT) tabletIndications :Vitamin D deficiency Take 1 tablet (25 mcg) by mouth in the morning. 90 tablet 3 02/10/20 24 Active warfarin (Coumadin) 5 MG tabletIndications :Atrial fibrillation, unspecified type (CMS/HCC) TAKE 1 TABLET BY MOUTH EVERY DAY DIRECTED BY [facility]IN CLINIC 90 tablet 2 07/07/20 24 Active furosemide (Lasix) 20 MG tabletIndications :Stage 3 chronic kidney disease, unspecified whether stage 3a or 3b CKD (CMS/HCC),Primary hypertension,Nonr heumatic tricuspid valve regurgitation 1 tab daily 60 tablet 08/22/20 24 Active lisinopril 40 MG tabletIndications :Primary hypertension TAKE 1 TABLET BY MOUTH ONCE DAILY 90 tablet 1 10/17/20 24 Active ferrous sulfate (FeroSul) 325 (65 Fe) MG tabletIndications :Iron deficiency Take 1 tablet (325 mg) by mouth Once per day. 90 tablet 01/12/20 25 Active atorvastatin (Lipitor) 80 MG tabletIndications :Mixed hyperlipidemia Take 1 tablet (80 mg) by mouth at bedtime. 90 tablet 01/12/20 25 Active amLODIPine (Norvasc) 5 MG tabletIndications :Primary hypertension Take 1 tablet (5 mg) by mouth Once per day. 90 tablet 01/12/20 25 Active atorvastatin (Lipitor) 80 MG tablet TAKE 1 TABLET BY MOUTH EVERY DAY AT BEDTIME 90 tablet 10/10/20 24 025 Discontinued(R eorder (will not trigger notification to Pharmacy)) amLODIPine (Norvasc) 5 MG tablet TAKE 1 TABLET BY MOUTH EVERY DAY 90 tablet 10/10/20 24 025 Discontinued(R eorder (will not trigger notification to Pharmacy)) FeroSul 325 (65 Fe) MG tabletIndications :Iron deficiency TAKE 1 TABLET BY MOUTH EVERY DAY 90 tablet 10/10/20 24 025 Discontinued(R eorder (will not trigger notification to Pharmacy)) Active Problems Problem Noted Date Diagnosed Date KARINA (obstructive sleep apnea) 01/11/2025 Assessment & Plan (01/11/2025 1:16 PM EST): Seen at the sleep center 10/26/2024 Using Cpap with good results Nonrheumatic tricuspid valve regurgitation 01/31 Assessment & [...] pt currently undergoing PT with good results. [facility] care 09/23/2023 Assessment & Plan (10/17/2024 1:55 [...] 08/22/2015 Flu shot : m111/23/2022 Zoster: 02/26/2015 Stage 3b chronic kidney disease 04/18/2019 09/15/2023 Assessment & Plan (01/11/2025 1:24 PM EST): Used to be under the [...] to follow with Nephrology Assessment & Plan (10/17/2024 1:38 PM EST): [...] Nephrology Age-related nuclear cataract of both eyes 201709/15/2023 Atrial fibrillation 02/08/2018 09/15/2023 Assessment & Plan (01/11/2025 1:18 PM EST): Pt feels good, no palpitations He is Chadsvasc 3 He is on Coumadin, under the care of the [facility] Clinic. pt is completely asymptomatic. Pt had a nuclear stress test that was negative Pt has ongoing f/u at the coumadin clinic and cardiology last note from Cardiology 11/30/2024. ECHO 08/17/2024 no significant change from previous EF 50-55% Assessment & Plan (10/17/2024 1:40 PM EST): [...] showed diverticulosis only by Dr connors at [facility] Mixed hyperlipidemia 08/13/2015 09/15/2023 Assessment & Plan (01/11/2025 1:31 PM EST): Pt here for a f/u Most recent lipid profile from: 10/12/2023 Lab Results Component Value Date TRIG 40 10/12/2023 CHOL 94 10/12/2023 LDLCHOLCAL 62 10/12/2023 HDL 24 (L) 10/12/2023 Currently on a regimen of Atorvastatin 80mg po qhs Lipids at target advised to try to adhere to a low cholesterol diet, counseled and educated about diet and exercise Assessment & Plan (02/01/2024 1:27 PM EDT): [...] the past by his vascular [place] [facility] [place] whose recommendation was conservative treatment, he saw NO role for any type of surgical intervention. He recommended to repeat the scan in 1 year and continue to take Asa 81 mg po daily. Pt was last seen by his merchandise worker at [facility] 09/14/2023 recommended repeat US and ECHO and 6 month follow up He is on Aspirin started by their office Last Carotid US on record from 02/11/2023 Hypertension 04/21/2012 09/15/2023 Assessment & Plan (01/11/2025 1:23 PM EST): Pt here for a f/u BP stable He is on a regimen of: Norvasc 5 mg daily, Lisinopril 40 mg po daily and lasix 20 mg daily prescribed by Retail Banking Manager. I had recently lowered his Lasix due [...] loss. 3 month f/u Assessment & Plan (10/17/2024 1:41 PM EST): Pt here for a f/u BP stable He is on a regimen of: Norvasc 5 mg daily, Lisinopril 40 mg po daily and lasix 20 mg daily prescribed by Retail Banking Manager. I had recently lowered his Lasix due [...] Am and 20 mg PM prescribed by Retail Banking Manager. I had recently lowered his Lasix due [...] Am and 20 mg PM prescribed by Retail Banking Manager. Pt developed some bilateral ankle edema due [...] Furosemide 20 mg po BID prescribed by Retail Banking Manager. Pt developed some bilateral ankle edema due [...] Furosemide 20 mg po BID prescribed by Retail Banking Manager. Pt developed some bilateral ankle edema due to Amlodipine Plan: Continue current regimen Most recent electrolytes, Bun and Creatinine done on: 12/24/2021 SCr 1.25 will repeat patient advised to adhere to a low sodium diet, encouraged about medication compliance, counseled about weight loss. 3 month f/u Gynecomastia 04/21/2012 09/15/2023 Assessment & Plan (01/11/2025 1:23 PM EST): Mammogram showed: IMPRESSION: -There is moderate to [...] plastic surgeon who recommended endocrine work up Assessment & Plan (05/04/2024 2:17 PM EDT): [...] clinical impression. Plan: [place] [facility] Assessment & Plan (02/01/2024 1:36 PM EDT): [...] Encounters Date Type Department Care Team Description 01/15/2025 Telephone [facility] [address] [place] [phone] Pedro Pulliam MD Referral 01/11/2025 1:15 PM EST Office Visit [facility] [address] [place] [phone] Pedro Pulliam MD Primary hypertension (Primary Dx); KARINA (obstructive sleep apnea); Longstanding persistent atrial fibrillation (CMS/HCC); Gynecomastia; Stage 3b chronic kidney disease (CMS/HCC); Iron deficiency; Mixed hyperlipidemia 01/11/2025 Travel 01/10/2025 Orders Only GENERIC EXTERNAL DATA DEPARTMENT Provider, Generic External Data 01/02/2025 Patient Outreach [address] [address] Pedro Pulliam MD Pre-visit Planning (SDOH Screening negative and Tobacco screening negative) 12/28/2024 Telephone [facility] [address] [place] [address] Pedro Pulliam MD Chart Prep 12/20/2024 Orders Only GENERIC EXTERNAL DATA DEPARTMENT Provider, Generic External Data 11/29/2024 Orders Only GENERIC EXTERNAL DATA DEPARTMENT Provider, Generic External Data 11/20/[address] [address] Pedro Pulliam MD follow up needed 11/06/2024 [...] Mass Index 24.54 01/11/2025 1:10 PM EST Plan of Treatment Upcoming Encounters Date Type Department Care Team (Late st Contact Info) Description 04/17/2025 1:15 PM EDT Office Visit [facility] [address] [place] [address] Pedro Pulliam MD [address] [place], [place] [phone] Health Maintenance Due Date Last Done Comments Zoster Vaccines (3 of 3) 03/04/2020 01/08/2020, 02/07 RSV Patients and Patients Aged 60 years or older (1 - 1-dose 75+ series) 2021 COVID-19 Vaccine ( - 2023- season) 2024 11/11/2021, 03/05/2021, 02/05/2021 Mammogram 04/11/2025 04/11/2024, 04/11/2024 Alcohol/Substance Use Screening 10/17/2025 10/17/2024 Depression Screening 10/17/2025 10/17/2024, 10/17/20 24 SDOH Screening 01/02/2026 01/02/2025 Tobacco Screening 01/11/2026 01/11/2025 Lipid Panel 10/12/2028 10/12/2023, 12/09, 03/14/2021, Additional [...] [facility] Routine 10/27/2024 2:06 PM EST BI MAMMOGRAM DIAGNOSTIC TOMOSYNTHESIS BILATERAL [...] 1:05 PM EST) Only the most recent of5 resultswithin the time period is included. Protime 25.7(H) 11.1 - 13.5 sec [facility] 01/10/2025 1:05 PM EST 01/10/2025 1:07 PM EST us Generic External Data Provider LAB BLOOD ORDERAB LES Final Result Performing Organization Address [facility]/State/ZIP Co de Phone Number [facility] [address] [place] [phone] * (ABNORMAL) ~PT, ~INR - ANTI COAG CLINIC (01/10/2025 1:05 PM EST) Only the most recent of5 resultswithin the time period is included. Prothrombin Time INR 2.1(H) 0.9 - 1.1 [facility] Comment:METER #: [id number] TERNATIONAL NORMALIZED RATIO (INR) REFERENCE RANGES Reference [...] ORDERAB LES Final Result Performing Organization Address [facility]/State/ZIP Co de Phone Number [facility] [address] [place] [phone] * BI Mammogram Diagnostic Tomosynthesis Bilateral (04/11/2024 3:15 PM EDT) Anatomical Region Laterality Modality Breast Bilateral Mammography 04/11/2024 3:15 PM EDT Narrative 04/11/2024 4:59 PM EDT ? [facility] [place] ? [address] ?[place] [address] ? Mammography Report ? Signed ? Patient: Pablo Quinteros,Jamie ?MR#: ?? [id number] ? : 1945 ?Acct:[id number] ? Age/Sex: 79 / M ?ADM Date: 04/11/24 ? Loc: HO.MAMMO ? Attending Dr: Pedro Webber MD ? Ordering Physician: Pedro Webber MD ?Resu ?? lts: 2Benign Findings ? Date of Service: 04/11/24 ?Follow Up: 1 Year From Orig ?? inal Mammogram ? Procedure(s): MM tomosynthesis diagnostic BI ?? Accession Number(s): [id number] ? cc: Pedro Webber MD ? EXAMINATION: [...] ?04/11/244 ? DD/ 1515 ? TD/TT: ? Clip On Sunglasses Assembler: ? Procedure Note Donotuseinterpreter, Image - 04/11/2024 [facility] [address] [place], [place] [address] Mammography Report Signed Patient: Rik Carpio#: [id number] : 6Acct:[id number] Age/Sex: 79 / MADM Date: 04/11/24 Loc: HO.MAMMO Attending Dr: Pedro Webber MD Ordering Physician: Pedro Webber MDResu lts: 2Benign Findings Date of Service: 04/11/24Follow Up: 1 Year From [facility] ina Mammogram Procedure(s): MM tomosynthesis diagnostic BI Accession Number(s): [id number] cc: Pedro Webber MD EXAMINATION: MM DIAGNOSTIC [...] in OV> 04/11/24 1654 DD/ 1515 TD/TT: Clip On Sunglasses Assembler: us Pedro Julian MD IMG BI PROCEDURES Fin al Result * (ABNORMAL) Lipid Panel with Reflex to Direct LDL (10/12/2023 8:50 AM EST) Triglycerides 40 <150 mg/dL [facility] Comment:Desirable Triglyceri de: less than 150 mg/dLBorderline High Triglyceride 150-199 mg/dLHigh Triglyceride: 200-499 mg/dLVery High Triglyceride: greater than or equal to 5OO mg/dL Cholesterol 94 <200 mg/dL [facility] Comment:Desirable Cholestero l: less than 200 mg/dLBorderline High Cholesterol: 200-239 mg/dLHigh Cholesterol: greater than 239 mg/dL LDL Cholesterol Calculated 62 <100 mg/dL [facility] Comment:Desirable LDL: less than 100 mg/dLNear Optimal/Above Optimal LDL: 110- 129 mg/dLBorderline High LDL: 130-159 mg/dLHigh LDL: 160-189 mg/dLVery High LDL: greater than or equal to 190 mg/dL HDL Cholesterol 24(L) >40 mg/dL [facility] Comment:Desirable HDL: great er than 40 mg/dL Note: This HDL assay may give artificially low results in patients with liver disease. Blood 10/12/2023 8:50 AM EST 10/12/2023 10:56 AM EST us Pedro Julian MD LAB BLOOD ORDERABLES Final Result Performing Organization Address City/[facility]/ZIP Co de Phone Number [facility] [address] [place] [phone] * HEPATITIS C AB W/REFL TO HCV RNA, QN, PCR (12/24/2021 8:24 AM EST) HEPATITIS C ANTIBODY NON-REACT SIL NON-REACT SIL [facility] INDEX 0.01 <1.00 [facility] Comment: ?? HCV antibody was non-reactive. There is no laboratory ?? evidence of HCV infection. ?? In most cases, no further action is required. However, if recent HCV exposure is suspected, a test for HCV RNA (test code 68968) is suggested. ?? For additional information please refer to http://education.LiveOps.Gigaclear/faq/TGX03y0 (This link is being provided for informational/ educational purposes only.) ?? 12/24/2021 8:24 AM EST us Pedro Julian MD HISTORICAL/NON ORDERA BLE LABS Final Result Performing Organization Address City/[facility]/ZIP Co de Phone Number [facility] [place] [address], from Last 3 Months or Most Recently Relevant to Health Maintenance Insurance [facility] Care Teams Product Development Manager Relationship Specialty Start Date End Date Pedro Pulliam MD [address] [place] [phone] PCP - General Internal Medicine 09/10/14
--- OUTSIDE RECORDS SUMMARY | 2025-01-16 08:42 | XMS_ITS | Encounter Summary ---
Author Organization [employer] Address [address] [place] [address] Care Team Providers Care Director Manufacturing Engineering Name Role Phone Pedro Pulliam MD Primary Care Provide r Encounter Details Date Type Department Care Team (Latest Contact Info) Description 01/11/2025 Travel Social History Tobacco Use Types Packs/Day Years [...] Description 04/17/2025 1:15 PM EDT Office Visit [facility] [address] [place] [address] Pedro Pulliam MD [address] [place] [address] documented as of this encounter Visit Diagnoses Not on filedocumented in this encounter Additional Health Concerns Assessment Noted Time PHQ-9 Depression Total Score: 0 10/17/20 24 1:50 PM EST documented as of this encounter Care Teams Director Manufacturing Engineering Relationship Specialty Start Date End Date Pedro Pulliam MD [address] [place] [address] PCP - General Internal Medicine 09/10/14 documented as of this encounter
--- OUTSIDE RECORDS SUMMARY | 2025-01-16 08:42 | XMS_ITS | Encounter Summary ---
Author Organization [facility] Address [address] [place] [address] Care Team Providers Care Laboratory Associate Name Role Phone Pedro Pulliam MD Primary [...] Description 04/17/2025 1:15 PM EDT Office Visit [facility] [address] [place] [address] Pedro Pulliam MD [address] [place] [address] documented as of this encounter Procedures Procedure Name Priority Date/Time Associated Diagnosis Comments PROTHROMBIN TIME WHOLE BLD POC Routine 12/20/2024 1:06 PM EST ~PT, ~INR - ANTI COAG CLINIC Routine 12/20/2024 1:06 PM EST documented in this encounter Results * (ABNORMAL) PROTHROMBIN TIME WHOLE BLD POC (12/20/2024 1:06 PM EST) Protime 21.3(H) 11.1 - 13.5 sec [facility] 12/20/2024 1:06 PM EST 12/20/2024 1:08 PM EST us Generic External Data Provider LAB BLOOD ORDERAB LES Final Result [facility] [address] [place] [phone] * (ABNORMAL) ~PT, ~INR - ANTI COAG CLINIC (12/20/2024 1:06 PM EST) Prothrombin Time INR 1.8(H) 0.9 - 1.1 [facility] Comment:METER #: [id number] TERNATIONAL NORMALIZED RATIO (INR) REFERENCE RANGES Reference [...] Provider LAB BLOOD ORDERAB LES Final Result [facility] [address] [place] [phone] documented in this encounter Visit Diagnoses Not on filedocumented in this encounter Additional Health Concerns Assessment Noted Time PHQ-9 Depression Total Score: 0 10/17/20 24 1:50 PM EST documented as of this encounter Care Teams Laboratory Associate Relationship Specialty Start Date End Date Pedro Pulliam MD [address] [place] [address] PCP - General Internal Medicine 09/10/14 documented as of this encounter
--- OUTSIDE RECORDS SUMMARY | 2025-01-16 08:42 | XMS_ITS | Encounter Summary ---
Author Organization [facility] Address [address] [place] [address] Care Team Providers Care Agronomy Professor Name Role Phone Pedro Pulliam MD Primary [...] Description 04/17/2025 1:15 PM EDT Office Visit [facility] [address] [place] [address] Pedro Pulliam MD [address] [place] [address] documented as of this encounter Procedures Procedure Name Priority Date/Time Associated Diagnosis Comments PROTHROMBIN TIME WHOLE BLD POC Routine 01/10/2025 1:05 PM EST ~PT, ~INR - ANTI COAG CLINIC Routine 01/10/2025 1:05 PM EST documented in this encounter Results * (ABNORMAL) PROTHROMBIN TIME WHOLE BLD POC (01/10/2025 1:05 PM EST) Protime 25.7(H) 11.1 - 13.5 sec [facility] 01/10/2025 1:05 PM EST 01/10/2025 1:07 PM EST us Generic External Data Provider LAB BLOOD ORDERAB LES Final Result [facility] [address] [place] [phone] * (ABNORMAL) ~PT, ~INR - ANTI COAG CLINIC (01/10/2025 1:05 PM EST) Prothrombin Time INR 2.1(H) 0.9 - 1.1 [facility] Comment:METER #: [id number] TERNATIONAL NORMALIZED RATIO (INR) REFERENCE RANGES Reference [...] Provider LAB BLOOD ORDERAB LES Final Result [facility] [address] [place] [phone] documented in this encounter Visit Diagnoses Not on filedocumented in this encounter Additional Health Concerns Assessment Noted Time PHQ-9 Depression Total Score: 0 10/17/20 24 1:50 PM EST documented as of this encounter Care Teams Agronomy Professor Relationship Specialty Start Date End Date Pedro Pulliam MD [address] [place] [address] PCP - General Internal Medicine 09/10/14 documented as of this encounter
--- OUTSIDE RECORDS SUMMARY | 2025-01-16 08:42 | XMS_ITS | Encounter Summary ---
Author Organization [employer] Address [address] [place] [address] Care Team Providers Care Transformation Consultant Name Role Phone Pedro Pulliam MD Primary Care Provide r Reason for Visit * Reason Comments Pre-visit Planning SDOH Screening negat renata and Tobacco screening negative Encounter Details Date Type Department Care Team ([facility] st Contact Info) Description 01/02/2025 Patient Outreach [facility] [address] [place], [place] [phone] Pedro Pulliam MD [address] [place], [place] [phone] Pre-visit Planning (SDOH Screening negative and Tobacco [...] 04/17/2025 1:15 PM EDT Office Visit [facility] [address] [place] [address] Pedro Pulliam MD [address] [place] [address] documented as of this encounter Visit Diagnoses Not on filedocumented in this encounter Additional Health Concerns Assessment Noted Time PHQ-9 Depression Total Score: 0 10/17/20 24 1:50 PM EST documented as of this encounter Care Teams Transformation Consultant Relationship Specialty Start Date End Date Pedro Pulliam MD [address] [place] [address] PCP - General Internal Medicine 09/10/14 documented as of this encounter
--- OUTSIDE RECORDS SUMMARY | 2025-01-16 08:42 | XMS_ITS | Encounter Summary ---
Author Organization [employer] Address [address] [place] [address] Care Team Providers Care Radiation Oncology Therapist Name Role Phone Pedro Pulliam MD Primary Care Provide r Reason for Visit * Reason Onset Date Comments Chart Prep 12/28/2024 Encounter Details Date Type Department Care Team ([facility] st Contact Info) Description 12/28/2024 Telephone [facility] [address] [place], [place] [phone] Pedro Pulliam MD [address] [place], [place] [phone] Chart Prep Social History Tobacco Use Types [...] Description 04/17/2025 1:15 PM EDT Office Visit [facility] [address] [place] [address] Pedro Pulliam MD [address] [place] [address] documented as of this encounter Visit Diagnoses Not on filedocumented in this encounter Additional Health Concerns Assessment Noted Time PHQ-9 Depression Total Score: 0 10/17/20 24 1:50 PM EST documented as of this encounter Care Teams Radiation Oncology Therapist Relationship Specialty Start Date End Date Pedro Pulliam MD [address] [place] [address] PCP - General Internal Medicine 09/10/14 documented as of this encounter
--- OUTSIDE RECORDS SUMMARY | 2025-01-16 08:42 | XMS_ITS | Encounter Summary ---
Author Organization [employer] Address [address] [place] [address] Care Team Providers Care Ground Instructor Advanced Name Role Phone Pedro Pulliam MD Primary Care Provide r Reason for Visit * Reason Onset Date Comments follow up needed 11/20/2024 Encounter Details Date Type Department Care Team ([facility] st Contact Info) Description 11/20/2024 Telephone [facility] [address] [place], [place] [phone] Pedro Pulliam MD [address] [place], [place] [phone] follow up needed Social History Tobacco Use [...] r/o any malignant possibilities including testicular changes. Ranad informed that this information will be forwarded to PCP Dr. Snow for review. * Telephone Encounter - Juan Francisco Salas - 11/20/2024 12:47 PM EST Tc from [place] with [facility] plastic surgery reporting that they saw [...] Description 04/17/2025 1:15 PM EDT Office Visit [facility] [address] [place] [address] Pedro Pulliam MD [address] [place] [address] documented as of this encounter Visit Diagnoses Not on filedocumented in this encounter Additional Health Concerns Assessment Noted Time PHQ-9 Depression Total Score: 0 10/17/20 24 1:50 PM EST documented as of this encounter Care Teams Ground Instructor Advanced Relationship Specialty Start Date End Date Pedro Pulliam MD [address] [place] [address] PCP - General Internal Medicine 09/10/14 documented as of this encounter
--- OUTSIDE RECORDS SUMMARY | 2025-01-16 08:42 | XMS_ITS | Encounter Summary ---
Author Organization [employer] Address [address] [place] [address] Care Team Providers Care Securities Sales Associate Name Role Phone Pedro Pulliam MD Primary Care Provide r Encounter Details Date Type Department Care Team ([facility] st Contact Info) Description 05/31/2024 Telephone [facility] [address] [place], [place] [phone] Pedro Pulliam MD [address] [place], [place] [phone] Social History Tobacco Use Types Packs/Day Years [...] line 05/31/24 at 1:21 PM Name of Caller/Facility:[facility] Callback number: [phone] Reason for Call: INR 1.4 no missed [...] Description 04/17/2025 1:15 PM EDT Office Visit [facility] [address] [place] [address] Pedro Pulliam MD [address] [place] [address] documented as of this encounter Visit Diagnoses Not on filedocumented in this encounter Additional Health Concerns Assessment Noted Time PHQ-9 Depression Total Score: 1 09/23/20 23 1:21 PM EST documented as of this encounter Care Teams Securities Sales Associate Relationship Specialty Start Date End Date Pedro Pulliam MD [address] [place] [address] PCP - General Internal Medicine 09/10/14 documented as of this encounter
--- OUTSIDE RECORDS SUMMARY | 2025-01-16 08:42 | XMS_ITS | Encounter Summary ---
Author Organization [employer] Address [address] 7t [place] [address] Care Team Providers Care Lens Marker Name Role Phone Pedro Pulliam MD Primary Care Provide r Reason for Visit * Reason Comments Med Refill Encounter Details Date Type Department Care Team ([facility] st Contact Info) Description 06/02/2024 Refill [facility] [address] [place], [place] [phone] Pedro Pulliam MD [address] [place], [place] [phone] Primary hypertension; Stage 3 chronic kidney disease, [...] Description 04/17/2025 1:15 PM EDT Office Visit [facility] [address] [place] [address] Pedro Pulliam MD [address] [place] [address] documented as of this encounter Visit Diagnoses Diagnosis Primary hypertension Unspecified essential hypertension Stage 3 chronic kidney disease, unspecified whether stage 3a or 3b CKD ([facility]/HCC) Nonrheumatic tricuspid valve regurgitation documented in this encounter Additional Health Concerns Assessment Noted Time PHQ-9 Depression Total Score: 1 09/23/20 23 1:21 PM EST documented as of this encounter Care Teams Lens Marker Relationship Specialty Start Date End Date Pedro Pulliam MD [address] [place] [address] PCP - General Internal Medicine 09/10/14 documented as of this encounter
--- OUTSIDE RECORDS SUMMARY | 2025-01-16 08:43 | XMS_ITS | Encounter Summary ---
Author Organization [facility] Address [address] 7t [place] [address] Care Team Providers Care Coal Or Ore Controller Name Role Phone Pedro Pulliam MD Primary Care Provide r Encounter Details Date Type Department Care Team (Late st Contact Info) Description 01/06/2023 Orders Only [facility] CHC MED & PEDS [address] [place], [place] [phone] Shira Castano LPN Social History Tobacco Use [...] Description 04/17/2025 1:15 PM EDT Office Visit [facility] [address] [place] [address] Pedro Pulliam MD [address] [place] [address] documented as of this encounter Visit Diagnoses Not on filedocumented in this encounter Care Teams Coal Or Ore Controller Relationship Specialty Start Date End Date Pedro Pulliam MD [address] [place] [address] PCP - General Internal Medicine 09/10/14 documented as of this encounter
--- OUTSIDE RECORDS SUMMARY | 2025-01-16 08:43 | XMS_ITS | Encounter Summary ---
Author Organization [facility] Address [address] 7t [place] [address] Care Team Providers Care Wig Dresser Name Role Phone Pedro Pulliam MD Primary Care Provide r Encounter Details Date Type Department Care Team (Late st Contact Info) Description 02/25/2023 Orders Only [facility] [address] [place] [address] Shanita Pfeiffer LPN Social History Tobacco Use [...] Description 04/17/2025 1:15 PM EDT Office Visit [facility] [address] [place] [address] [phone] Pedro Pulliam MD [address] [place] [address] documented as of this encounter Visit Diagnoses Not on filedocumented in this encounter Care Teams Wig Dresser Relationship Specialty Start Date End Date Pedro Pulliam MD [address] [place] [address] PCP - General Internal Medicine 09/10/14 documented as of this encounter
--- OUTSIDE RECORDS SUMMARY | 2025-01-16 08:43 | XMS_ITS | Encounter Summary ---
Author Organization [employer] [facility] Address [address] [facility] 7t [place] [address] Care Team Providers Care Tiller Worker Name Role Phone Pedro Pulliam MD Primary Care Provide r Encounter Details Date Type Department Care Team (Late st Contact Info) Description 05/31/2023 Orders Only [facility] [address] [place] [address] Shanita Pfeiffer LPN Social History Tobacco Use [...] Description 04/17/2025 1:15 PM EDT Office Visit [facility] [address] [place] [address] [phone] Pedro Pulliam MD [address] [place] [address] documented as of this encounter Visit Diagnoses Not on filedocumented in this encounter Care Teams Tiller Worker Relationship Specialty Start Date End Date Pedro Pulliam MD [address] [place] [address] PCP - General Internal Medicine 09/10/14 documented as of this encounter
--- OUTSIDE RECORDS SUMMARY | 2025-01-16 08:43 | XMS_ITS | Encounter Summary ---
Author Organization [employer] Address [address] 7t [place] [address] Care Team Providers Care Community Sports Coordinator Name Role Phone Pedro Pulliam MD Primary Care Provide r Reason for Visit * Reason Onset Date Comments OV 03/1602/17/2024 Encounter Details Date Type Department Care Team ([facility] st Contact Info) Description 02/17/2024 Telephone [facility] [address] [place], [place] [phone] Pedro Pulliam MD [address] [place], [place] [phone] OV 03/16 Social History Tobacco Use Types Packs/Day Years Used Date Smoking Tobacco: Never Passive Smoke Exposure: Never Smokeless Tobacco: Never Depression Answer Date Recorded Patient Health Questionnaire-9 Score 1 09/23/2023 Patient Health Questionnaire-9 Score 1 09/23/2023 Last PHQ-9: Questionnaire Data Not on file 1 11/23/2022 Housing Stability Answer Date Recorded What is your housing situation today? I have prashant ried 09/23/[address] you li [...] any questions you can contact pt at [phone]. documented in this encounter Plan of Treatment Upcoming Encounters Date Type Department Care Team (Late st Contact Info) Description 04/17/2025 1:15 PM EDT Office Visit [facility] [address] [place] [address] Pedro Pulliam MD [address] [place] [address] documented as of this encounter Visit Diagnoses Not on filedocumented in this encounter Additional Health Concerns Assessment Noted Time PHQ-9 Depression Total Score: 1 09/23/20 23 1:21 PM EST documented as of this encounter Care Teams Community Sports Coordinator Relationship Specialty Start Date End Date Pedro Pulliam MD [address] [place] [address] PCP - General Internal Medicine 09/10/14 documented as of this encounter
--- OUTSIDE RECORDS SUMMARY | 2025-01-16 08:43 | XMS_ITS | Encounter Summary ---
Author Organization [facility] Address [address] [facility] 7t [place] [address] Care Team Providers Care Weight Checker Name Role Phone Pedro Pulliam MD Primary Care Provide r Reason for Visit * Reason Onset Date Comments Med Refill 2023 Encounter Details Date Type Department Care Team (Late st Contact Info) Description 2023 Refill [facility] MED[facility]INE [address] [place], [place] [phone] Pedro Pulliam MD [address] [place], [place] [phone] Atrial fibrillation, unspecified type (CMS/HCC) (Primary Dx) [...] Description 04/17/2025 1:15 PM EDT Office Visit [facility] MED[facility]INE [address] [place], [place] [phone] Pedro Pulliam MD [address] [place], [place] [phone] documented as of this encounter Visit Diagnoses Diagnosis Atrial fibrillation, unspecified type (CMS/HCC)- Primary documented in this encounter Care Teams Weight Checker Relationship Specialty Start Date End Date Pedro Pulliam MD [address] [place] [address] PCP - General Internal Medicine 09/10/14 documented as of this encounter
--- OUTSIDE RECORDS SUMMARY | 2025-01-16 08:44 | XMS_ITS | Clinical Summary ---
Author Organization [facility] it Address [address] [place] [address] Care Team Providers Care Steam Turbine Operator Name Role Phone Unavailable Primary Care Provider [...] Documents on File Type Date Recorded Patient Microbiology Technician Expl anation Health Care Decision (hx) 01/10/2020 AD PHILLIP DIRECTIVE
--- OUTSIDE RECORDS SUMMARY | 2025-01-16 08:44 | XMS_ITS | Clinical Summary ---
Author Organization [facility] Address [address] [address] Care Team Providers Care Sausage Smoker Name Role Phone Pedro Snow MD Primary [...] age to complete this topic Care Teams Sausage Smoker Relationship Specialty Start Date End Date Pedro Snow MD PCP - General 11/18/20
--- OUTSIDE RECORDS SUMMARY | 2025-01-16 08:44 | XMS_ITS | Encounter Summary ---
Author Organization [employer] [facility] Address [address] 7t [place] [address] Care Team Providers Care Plastic Parts Fabricator Trimmer Name Role Phone Pedro Pulliam MD Primary Care Provide r Encounter Details Date Type Department Care Team (Late st Contact Info) Description 02/01/2023 Orders Only [facility] CHC MED & PEDS [address] [place], [place] [phone] Shira Castano LPN Social History Tobacco Use [...] Description 04/17/2025 1:15 PM EDT Office Visit [facility] MEDICINE [address] [place] [address] Pedro Pulliam MD [address] [place] [address] documented as of this encounter Visit Diagnoses Not on filedocumented in this encounter Care Teams Plastic Parts Fabricator Trimmer Relationship Specialty Start Date End Date Pedro Pulliam MD [address] [place] [address] PCP - General Internal Medicine 09/10/14 documented as of this encounter
[2025-01-16 12:42] LABS: Anion Gap 10 (12-20); Blood Urea Nitrogen 28 mg/dL (9-16); Calcium 8.7 mg/dL (8.4-10.2); Carbon Dioxide 25 mmol/L (22-29); Chloride 111 mmol/L (96-108); Cholesterol 93 mg/dL (<200); Estimated Glomerular Filt Rate 34; Glucose Random 93 mg/dL (60-115); HCG Quantitative < 2 mIU/mL; HDL Cholesterol 27 mg/dL (>40); LDL Cholesterol Calculated 58 mg/dL (<100); Potassium 4.5 mmol/L (3.3-5.1); Sodium 141 mmol/L (135-145); Triglycerides 40 mg/dL (<150)
[2025-01-17 06:19] LABS: DHEA Sulfate 44 mcg/dL (3-225); Follicle Stimulating Hormone 49.9 mIU/mL (1.4-12.8); Lutenizing Hormone 37.7 mIU/mL (1.6-15.2); Prolactin 9.2 ng/mL (2.0-18.0)
[2025-01-23 06:43] LABS: Estradiol Ultra Sensitive 37 pg/mL (< OR = 29)
[2025-01-24 15:17] LABS: Testosterone, Free 60.8 pg/mL (30.0-135.0); Testosterone, Total 498 ng/dL (250-1100)
== END 2025-01-16 08:12 | disposition home or self-care (01) ==
LOC: HO.HHCL 08:11
PROVIDERS: Visit Provider Internal Medicine
DX: I10 Essential (primary) hypertension (principal); N62 Hypertrophy of breast; E78.2 Mixed hyperlipidemia
CPT/HCPCS: 36415; 80048; 80061; 82627; 82670; 83001; 83002; 84146; 84402; 84403; 84443; 84702

== ENCOUNTER 2025-01-22 09:48 | Outpatient (AMB) | payer OTHER, SELFPAY ==
[2025-01-22 09:46] VITALS: BP 124/36; PULSE 65; O2SAT 99; BMI 24.5
--- NOTE | 2025-01-22 09:46 | HO.NEPHOV ---
Vital Signs 01/22/25 09:46 Height 5 ft 9 in Weight 166 lb BMI 24.5 BP 124/36 L Blood Pressure Location Lt brachial Position Sitting Pulse 65 Pulse Source Pulse Oximeter Pulse Oximetry (%) 99 Oxygen Delivery Method Room Air Intake Visit Reasons: FU Straight Slicing Machine Operator Required: Yes Straight Slicing Machine Operator Name: [id number] Rodolfo Accompanied by: Self / Same As Patient Allergies No Known Allergies [No Known Allergies*] Allergy (Verified 01/22/25 09:47) Medication List - Last Reconciled 01/22/25 by Niko Salamanca MD amlodipine 5 mg PO DAILY aspirin 81 mg PO DAILY atorvastatin 80 mg PO BEDTIME cholecalciferol (vitamin D3) 25 mcg PO DAILY dorzolamide-timolol 22.3-6.8 mg/mL 22.3 drps ophthalmic (eye) BID ferrous sulfate (FeroSul) 1 tab PO DAILY furosemide 40 mg PO DAILY iron sucrose (Venofer) 200 mg IV Q3D lisinopril 40 mg PO DAILY octreotide acetate (Mycapssa) 20 mg PO DAILY travoprost 0.004% 1 drp ophthalmic (eye) BEDTIME warfarin 5 mg See Protocol PO DAILY HPI Comments Details: Joby is a pleasant 79-year-old man with a history of chronic kidney disease. He has a history of BPH and he has been evaluated by Urology. He has been referred for chronic kidney disease. As of 07/31/2024 serum creatinine was 1.61. This has remained unchanged for at least 2 months. Ongoing medical problems include hypertension and atrial fibrillation. Today he is having some difficulty urination. No hematuria. No urgency. No fever. No shortness of breath no chest pain nausea or vomiting. [facility] Medical History Atrial fibrillation Tubular adenoma Dyslipidemia HTN (hypertension) Surgical History Hx of bilateral cataract extraction Hx of colonoscopy History of esophagogastroduodenoscopy (EGD) Family History Father Throat cancer Brother Prostate cancer Asthma Sister Hypertension Diabetes Mother Hypertension Social History Household Members: None Housing: Apartment Are you a primary spiritual care coordinator to a significant other at home: No Do you presently have visiting nurse or other home services: Yes (every 6 months) Alcohol intake: former Patient Tobacco Use Status: Former Tobacco user Tobacco use type: Cigarette service: No Current occupational status: retired Physical Exam Vital Signs: Last Vital Signs Pulse 65 01/22/25 09:46 BP 124/36 L 01/22/25 09:46 Pulse Ox 99 01/22/25 09:46 Oxygen Delivery Method Room Air 01/22/25 09:46 BMI result Body Mass Index 24.5 Const General: comfortable; No acute distress Orientation/consciousness: patient oriented x3 Eyes General: appearance normal, both eyes and all related structures Visual Damon: normal visual damon by confrontation Neck Neck: Yes supple and Yes no JVD Resp Effort & Inspection: normal respiratory effort and respiratory effort not decreased Cardio Palpation: no palpable S3 and no palpable S4 Heart sounds: no rubs GI Inspection: Yes normal to inspection Palpation (GI): Soft to palpation Percussion: Yes normal to percussion Auscultation: normal bowel sounds General: Yes no CVA tenderness Back/Spine/Pelvis Back: no CVA tenderness Skin General skin exam: no petechiae and no purpura Neuro General: patient oriented x3 and no focal motor deficits Extrem General: No clubbing and Yes edema (1+) Results Reviewed Nephrology Results: Sodium 141 mmol/L (135-145) 01/16/25 Potassium 4.5 mmol/L (3.3-5.1) 01/16/25 Chloride 111 mmol/L (96-108) H 01/16/25 Carbon Dioxide 25 mmol/L (22-29) 01/16/25 BUN 28 mg/dL (9-16) H 01/16/25 Creatinine 1.90 mg/dL (0.5-1.4) H 01/16/25 Calcium 8.7 mg/dL (8.4-10.2) 01/16/25 Assessment & Plan Assessment & Plan (1) CKD (chronic kidney disease): Code(s): N18.9 - Chronic kidney disease, unspecified Category: Medical (2) HTN (hypertension): Code(s): I10 - Essential (primary) hypertension Category: Medical Qualifiers: Hypertension type: unspecified Qualified Code(s): I10 - Essential (primary) hypertension (3) Anemia: Code(s): D64.9 - Anemia, unspecified Category: Medical (4) BPH w urinary obs/LUTS: Code(s): N40.1 - Benign prostatic hyperplasia with lower urinary tract symptoms; N13.8 - Other obstructive and reflux uropathy Category: Medical Plan . 79-year-old man with longstanding hypertension and BPH has chronic kidney disease. Serum creatinine has been stable around 1.6 mg/dL. Recent bump to 1.9 He has a history of bladder outlet obstruction and he was seen by Dr. Melo urinary retention/obstructive uropathy to explain CKD. Needs follow up with Urology Other possibility would include hypertensive nephrosclerosis. In the past urine sediments were bland therefore glomerular nephritis or interstitial disease seem unlikely. Repeat renal panel Stay on low-sodium diet Continue to increase p.o. intake. blood pressure is acceptable. I will continue the same antihypertensive medications He should stay on low-sodium diet. 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 Orders: Orders Complete Blood Count no Diff 4 Months N18.9 - Chronic kidney disease, unspecified Basic Metabolic Panel 4 Months N18.9 - Chronic kidney disease, unspecified Coding Level of Care Code Est Pt Level 4 (53175) Diagnoses CKD (chronic kidney disease) N18.9 Hypertension, unspecified type I10 Hypertension type: unspecified Anemia D64.9 BPH w urinary obs/LUTS N40.1; N13.8
== END 2025-01-22 10:07 | disposition home or self-care (01) ==
LOC: HO.HKA 09:48
PROVIDERS: PCP Internal Medicine; Visit Provider Internal Medicine Hypertension Specialist
DX: I12.9 Hypertensive chronic kidney disease with stage 1 through stage 4 chronic kidney disease, or unspecified chronic kidney disease (principal); N18.9 Chronic kidney disease, unspecified; D64.9 Anemia, unspecified; N40.1 Benign prostatic hyperplasia with lower urinary tract symptoms; N13.8 Other obstructive and reflux uropathy
CPT/HCPCS: 99214

== ENCOUNTER → 2025-01-22 09:48 | Outpatient (BNVA) | payer OTHER, SELFPAY | PROVIDERS: PCP Internal Medicine; Visit Provider Internal Medicine Hypertension Specialist | DX: I12.9 Hypertensive chronic kidney disease with stage 1 through stage 4 chronic kidney disease, or unspecified chronic kidney disease (principal); N18.9 Chronic kidney disease, unspecified; D63.1 Anemia in chronic kidney disease; N40.1 Benign prostatic hyperplasia with lower urinary tract symptoms; N13.8 Other obstructive and reflux uropathy | CPT/HCPCS: 99212 ==

== ENCOUNTER 2025-02-07 12:59 | Outpatient (AMB) | payer OTHER, SELFPAY ==
--- NOTE | 2025-02-07 13:06 | MHC.OFFVISCO ---
Intake Intake Visit Reasons: Anticoagulation Allergies No Known Allergies [No Known Allergies*] Allergy (Verified 02/07/25 13:02) Medication List - Last Reconciled 02/07/25 by Joyce Garcia RN amlodipine 5 mg PO DAILY aspirin 81 mg PO DAILY atorvastatin 80 mg PO BEDTIME cholecalciferol (vitamin D3) 25 mcg PO DAILY dorzolamide-timolol 22.3-6.8 mg/mL 22.3 drps ophthalmic (eye) BID ferrous sulfate (FeroSul) 1 tab PO DAILY furosemide 40 mg PO DAILY iron sucrose (Venofer) 200 mg IV Q3D lisinopril 40 mg PO DAILY octreotide acetate (Mycapssa) 20 mg PO DAILY travoprost 0.004% 1 drp ophthalmic (eye) BEDTIME warfarin 5 mg See Protocol PO DAILY Nursing Note INR: 2.8- in therapeutic range OF 2-3 Medications and supplements reviewed- NO CHANGES No changes in health, diet, medications, or supplements, Denies any signs and symptoms of bleeding or bruising or clotting. Bleeding, bruising, clotting discussed Nutritional guidance given Dose: 2.5mg x 2, 5mg x 5 F/U INR: 4 weeks Patient verbalizes understanding of instructions given Anti-Coag Initial Assessment Social Hx Patient Tobacco Use Status: Former Tobacco user Tobacco use type: Cigarette alcohol intake: former Alcohol intake frequency: does not drink Coding Level of Care Code Est Patient Level 1 Diagnoses Current use of anticoagulant therapy Z79.01 Results AMB INR Fingerstick AMB INR Fingerstick 2.8 Last Edit by Joyce Garcia RN on 02/07/25 13:07 interface delay Assessment & Plan Assessment & Plan (1) Current use of anticoagulant therapy: Comment: warfarin-Brittanieyun Margarette- need to confirm ok to stop 5 days prior to colonoscopy-unable to send note through expanse Patient aware this must be confirmed, there were no major barriers to understanding identified Code(s): Z79.01 - terminal clerk (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
[2025-02-07 13:08] LABS: Prothrombin Time Whole Bld POC 34.1 sec (11.1-13.5); ~PT, ~INR - Anti Coag Clinic 2.8 (0.9-1.1)
--- OUTSIDE RECORDS SUMMARY | 2025-02-07 15:36 | XMS_ITS | Clinical Summary ---
Author Organization [email or web address] Facility Address [address] [address] Care Team Providers Care Houseman Name Role Phone Pedro Snow MD Primary [...] age to complete this topic Care Teams Houseman Relationship Specialty Start Date End Date Pedro Snow MD PCP - General 11/18/20
--- OUTSIDE RECORDS SUMMARY | 2025-02-07 15:36 | XMS_ITS | Clinical Summary ---
Author Organization [facility] Address [address] [place] [address] Care Team Providers Care Family Support Coordinator Name Role Phone Unavailable Primary Care Provider [...] Vaccines (1 of 2) 1996 RSV Immunization Adult Patie nts (1 - 1-dose 75+ series) 2021 COVID-19 [...] Documents on File Type Date Recorded Patient Hop Trainer Expl anation Health Care Decision (hx) 01/10/2020 AD PHILLIP DIRECTIVE
--- OUTSIDE RECORDS SUMMARY | 2025-02-07 15:36 | XMS_ITS | Encounter Summary ---
Author Organization [employer] [facility] Address [address] [facility] [address] [facility] 7t [place] [address] Care Team Providers Care Hourly Team Members Name Role Phone Pedro Pulliam MD Primary Care Provide r Niko Salamanca MD Unavailable [phone] Encounter Details Date Type Department Care Team (Late st Contact Info) Description 02/01/2023 Orders Only [facility] CHC MED & PEDS [address] [place] [address] Shira Castano LPN Social History Tobacco Use [...] Description 04/17/2025 1:15 PM EDT Office Visit [facility] MEDICINE [address] [place] [address] Pedro Pulliam MD [address] [place], [place] [phone] documented as of this encounter Visit Diagnoses Not on filedocumented in this encounter Care Teams Hourly Team Members Relationship Specialty Start Date End Date Pedro Pulliam MD [address] [place], [place] [phone] PCP - General Internal Medicine 09/10/14 Niko Salamanca MD [address] [place] [address] Nephrology 01/16/25 documented as of this encounter
--- OUTSIDE RECORDS SUMMARY | 2025-02-07 15:36 | XMS_ITS | Encounter Summary ---
Author Organization [employer] [facility] Address [address] 7t [place] [address] Care Team Providers Care Pipe Straightener Name Role Phone Pedro Pulliam MD Primary Care Provide r Niko Salamanca MD Unavailable [phone] Reason for Visit * Reason Comments Med Refill Encounter Details Date Type Department Care Team (Late st Contact Info) Description 06/02/2024 Refill [facility] MEDICINE [address] [place], [place] [phone] Pedro Pulliam MD [address] [place], [place] [phone] Primary hypertension; Stage 3 chronic kidney disease, [...] Description 04/17/2025 1:15 PM EDT Office Visit [facility] MEDICINE [address] [place] [address] Pedro Pulliam MD [address] [place] [address] documented as of this encounter Visit Diagnoses Diagnosis Primary hypertension Unspecified essential hypertension Stage 3 chronic kidney disease, unspecified whether stage 3a or 3b CKD ([facility]/HCC) Nonrheumatic tricuspid valve regurgitation documented in this encounter Additional Health Concerns Assessment Noted Time PHQ-9 Depression Total Score: 1 09/23/20 23 1:21 PM EST documented as of this encounter Care Teams Pipe Straightener Relationship Specialty Start Date End Date Pedro Pulliam MD [address] [place] [address] PCP - General Internal Medicine 09/10/14 Niko Salamanca MD [address] [place] [address] Nephrology 01/16/25 documented as of this encounter
--- OUTSIDE RECORDS SUMMARY | 2025-02-07 15:36 | XMS_ITS | Encounter Summary ---
Author Organization [facility] Address [address] 7t [place] [address] Care Team Providers Care Steel Burner Name Role Phone Pedro Pulliam MD Primary Care Provide r Niko Salamanca MD Unavailable [phone] Reason for Visit * Reason Onset Date Comments Med Refill 2023 Encounter Details Date Type Department Care Team (Late st Contact Info) Description 2023 Refill [facility] MEDICINE [address] [place] [address] Pedro Pulliam MD [address] [place] [address] Atrial fibrillation, unspecified type (CMS/HCC) (Primary Dx) [...] Description 04/17/2025 1:15 PM EDT Office Visit [facility] MEDICINE [address] [place] [address] Pedro Pulliam MD [address] [place] [address] documented as of this encounter Visit Diagnoses Diagnosis Atrial fibrillation, unspecified type (CMS/HCC)- Primary documented in this encounter Care Teams Steel Burner Relationship Specialty Start Date End Date Pedro Pulliam MD [address] [place] [address] PCP - General Internal Medicine 09/10/14 Niko Salamanca MD [address] [place] [address] Drive [address] [place] [address] Nephrology 01/16/25 documented as of this encounter
--- OUTSIDE RECORDS SUMMARY | 2025-02-07 15:36 | XMS_ITS | Encounter Summary ---
Author Organization [facility] [facility] Address [address] [facility] 7t [place] [address] Care Team Providers Care Resident Care Aid Name Role Phone Pedro Pulliam MD Primary Care Provide r Niko Salamanca MD Unavailable [phone] Encounter Details Date Type Department Care Team (Late st Contact Info) Description 01/06/2023 Orders Only [facility] CHC MED & PEDS [address] [place] [address] Shira Castano LPN Social History Tobacco Use [...] Description 04/17/2025 1:15 PM EDT Office Visit [facility] MEDICINE [address] [place] [address] Pedro Pulliam MD [address] [place], [place] [phone] documented as of this encounter Visit Diagnoses Not on filedocumented in this encounter Care Teams Resident Care Aid Relationship Specialty Start Date End Date Pedro Pulliam MD [address] [place], [place] [phone] PCP - General Internal Medicine 09/10/14 Niko Salamanca MD [address] [place] [address] Nephrology 01/16/25 documented as of this encounter
--- OUTSIDE RECORDS SUMMARY | 2025-02-07 15:36 | XMS_ITS | Encounter Summary ---
Author Organization [employer] Address [address] [facility] [place] [address] Care Team Providers Care Toby Maker Name Role Phone Pedro Pulliam MD Primary Care Provide r Niko Salamanca MD Unavailable [phone] Reason for Visit * Reason Onset Date Comments OV 03/1602/17/2024 Encounter Details Date Type Department Care Team (Late st Contact Info) Description 02/17/2024 Telephone [facility] MEDICINE [address] [place], [place] [phone] Pedro Pulliam MD [address] [place], [place] [phone] OV 03/16 Social History Tobacco Use Types [...] any questions you can contact pt at [phone]. documented in this encounter Plan of Treatment Upcoming Encounters Date Type Department Care Team (Late st Contact Info) Description 04/17/2025 1:15 PM EDT Office Visit [facility] [address] [place] [address] Pedro Pulliam MD [address] [place] [address] documented as of this encounter Visit Diagnoses Not on filedocumented in this encounter Additional Health Concerns Assessment Noted Time PHQ-9 Depression Total Score: 1 09/23/20 23 1:21 PM EST documented as of this encounter Care Teams Toby Maker Relationship Specialty Start Date End Date Pedro Pulliam MD [address] [place] [address] PCP - General Internal Medicine 09/10/14 Niko Salamanca MD [address] [place] [address] [address] [place] [address] Nephrology 01/16/25 documented as of this encounter
--- OUTSIDE RECORDS SUMMARY | 2025-02-07 15:36 | XMS_ITS | Clinical Summary ---
Author Organization [employer] Address [address] 7[address] [place] [address] Care Team Providers Care Warp Picker Name Role Phone Pedro Pulliam MD Primary Care Provide r Niko Salamanca MD Unavailable [phone] Allergies No known active allergies Medications Aspirin [...] pt currently undergoing PT with good results. [facility] 09/23/2023 Assessment & Plan (10/17/2024 1:55 PM EST): PSA: 06/27/2024 4.9 under the caer of urology Dr tamez Colonoscopy: Normal : Repeat 03/28 due to a Hx of a Tubular Adenoma, showed diverticulosis no source of bleed Vaccines: Tdap 04/24/2014, Pneumovax 12/2013, PCV 13: 08/22/2015 Flu shot : 09/23/2023 Zoster: 02/26/2015 Assessment & Plan (09/23/2023 1:35 [...] showed diverticulosis only by Dr connors [place] [facility] Mixed hyperlipidemia 08/13/2015 09/15/2023 Assessment & Plan [...] the past by his vascular surgeon at [facility] (Dr Lind) whose recommendation was conservative treatment, he saw NO role for any type of surgical intervention. He recommended to repeat the scan in 1 year and continue to take Asa 81 mg po daily. Pt was last seen by his front counter attendant at [facility] 09/14/2023 recommended repeat US and [...] and lasix 20 mg daily prescribed by Remelt Operator. I had recently lowered his Lasix due [...] and lasix 20 mg daily prescribed by Remelt Operator. I had recently lowered his Lasix due [...] Am and 20 mg PM prescribed by Remelt Operator. I had recently lowered his Lasix due [...] Am and 20 mg PM prescribed by Remelt Operator. Pt developed some bilateral ankle edema due [...] Furosemide 20 mg po BID prescribed by Remelt Operator. Pt developed some bilateral ankle edema due [...] Furosemide 20 mg po BID prescribed by Remelt Operator. Pt developed some bilateral ankle edema due [...] clinical impression. Plan: Breast center referral at [facility] Assessment & Plan (02/01/2024 1:36 PM EDT): Will order a mammogram Anemia 04/21/2012 09/15/2023 Assessment & Plan (10/17/2024 1:42 PM EST): Pt here for a f/u Evaluated by Hematology last seen 09/21/2024 Dr Wills. Pt has been receiveing PRBCs and IV Iron Pt had a Video Capsule endoscopy in March which revealed: some red spots, erythema in stomach but no active bleeding in stomach or small bowel. Dr wills's impression was that he had anemia of [...] Evaluated by Hematology last seen 06/30/2024 Dr Wills. Pt has been receiveing PRBCs and IV Iron Pt had a Video Capsule endoscopy in March which revealed: some red spots, erythema in stomach but no active bleeding in stomach or small bowel. Dr wills's impression was that he had anemia of [...] Evaluated by Hematology last seen 05/02/2024 Dr Wills. Pt has been receiveing PRBCs and IV Iron Pt had a Video Capsule endoscopy in March which revealed: some red spots, erythema in stomach but no active bleeding in stomach or small bowel. Dr wills's impression was that he had anemia of [...] Evaluated by Hematology last seen 08/2023 Dr Wills. Pt has been receiveing PRBCs and IV Iron Pt had a Video Capsule endoscopy in March which revealed: some red spots, erythema in stomach but no active bleeding in stomach or small bowel. Dr wills's impression was that he had anemia of chronic disease likely related to chronic kidney disease Of note he had a bone marrow exam in 06/2005 which revealed mild non specific plasmacytosis but otherwise negative. EGD and colonoscopy 03/2021 showed diverticulosis but no source of bleeding. He is on iron supplementation Encounters Date Type Department Care Team Description 02/07/2025 Orders Only GENERIC EXTERNAL DATA DEPARTMENT Provider, Generic External Data 01/16/[address] [address] Justa Christianson RN Interoffice Communication 01/15/2025 Telephone [facility] [place] [address] Pedro Pulliam MD Referral 01/11/2025 1:15 PM EST Office Visit [facility] [place] [address] Pedro Pulliam MD Primary hypertension (Primary Dx); KARINA (obstructive sleep apnea); Longstanding persistent atrial fibrillation (CMS/HCC); Gynecomastia; Stage 3b chronic kidney disease (CMS/HCC); Iron deficiency; Mixed hyperlipidemia 01/11/2025 Travel 01/10/2025 Orders Only GENERIC EXTERNAL DATA DEPARTMENT Provider, Generic External Data 01/02/2025 Patient Outreach [facility] [place] [address] Pedro Pulliam MD Pre-visit Planning (SDOH Screening negative and Tobacco screening negative) 12/28/[address] [address] Pedro Pulliam MD Chart Prep 12/20/2024 Orders Only GENERIC EXTERNAL DATA DEPARTMENT Provider, Generic External Data 11/29/2024 Orders Only GENERIC EXTERNAL DATA DEPARTMENT Provider, Generic External Data 11/20/2024 Telephone [facility] [place] [address] Pedro Pulliam MD follow up needed from Last 3 Months Immunizations Name Administration [...] Description 04/17/2025 1:15 PM EDT Office Visit [facility] MEDICINE [address] [place] [address] Pedro Pulliam MD [address] [place], [place] [phone] Health Maintenance Due Date Last Done Comments Zoster Vaccines (3 of 3) 03/04/2020 01/08/2020, 02/07 RSV Patients and Patients Aged 60 years or older (1 - 1-dose 75+ series) 2021 COVID-19 Vaccine ( season) 2024 11/11/2021, 03/05/2021, 02/05/2021 Mammogram 04/11/2025 04/11/2024, 04/11/2024 Alcohol/Substance Use Screening 10/17/2025 10/17/2024 Depression Screening 10/17/2025 10/17/2024, 10/17/20 24 SDOH Screening 01/02/2026 01/02/2025 Tobacco Screening 01/11/2026 01/11/2025 Lipid Panel 01/16/2030 01/16/2025, 12/03/2023, 12/24/2021, Additional history exists DTaP/Tdap/Td Vaccines (3 - [...] Comments PROTHROMBIN TIME WHOLE BLD POC Routine 02/07/2025 1:05 PM EDT ~PT, ~INR - ANTI COAG CLINIC Routine 02/07/2025 1:05 PM EDT LIPID PANEL, STANDARD Routine 01/16/2025 9:13 AM EDT Mixed hyperlipidemia HCG, TOTAL, QN Routine 01/16/2025 9:13 AM EDT Gynecomastia TSH W/REFLEX TO FT4 Routine 01/16/2025 9 :13 AM EDT Gynecomastia BASIC METABOLIC PANEL Routine 01/16/2025 9:13 AM EDT Primary hypertension DHEA SULFATE Routine 01/16/2025 8:13 AM EDT Gynecomastia PROLACTIN Routine 01/16/2025 8:13 AM EDT Gynecomastia FSH Routine 01/16/2025 8:13 AM EDT Gynecomastia LH Routine 01/16/2025 8:13 AM EDT Gynecomastia ESTRADIOL Routine 01/16/2025 8:13 AM EDT Gynecomastia TESTOSTERONE, FREE (DIALYSIS) AND TOTAL,MS Routine 01/16/2025 8:13 AM EDT Gynecomastia PROTHROMBIN TIME WHOLE BLD POC Routine 01/10/2025 1:05 PM EST ~PT, ~INR - ANTI COAG CLINIC Routine 01/10/2025 1:05 PM EST PROTHROMBIN TIME WHOLE BLD POC Routine 12/20/2024 1:06 PM EST ~PT, ~INR - ANTI COAG CLINIC Routine 12/20/2024 1:06 PM EST PROTHROMBIN TIME WHOLE BLD POC Routine 11/29/2024 1:07 PM EST ~PT, ~INR - ANTI COAG CLINIC Routine 11/29/2024 1:07 PM EST BI MAMMOGRAM DIAGNOSTIC TOMOSYNTHESIS BILATERAL Routine 04/11/2024 3:15 PM EDT Gynecomastia ZZZ HISTORICAL HEPATITIS C AB W/REFL TO HCV RNA, QN, PCR Routine 12/24/2021 8:24 AM EST from Last 3 Months or Most Recently Relevant to Health Maintenance Results * (ABNORMAL) PROTHROMBIN TIME WHOLE BLD POC (02/07/2025 1:05 PM EDT) Only the most recent of4 resultswithin the time period is included. Protime 34.1(H) 11.1 - 13.5 sec [facility] 02/07/2025 1:05 PM EDT 02/07/2025 1:07 PM EDT us Generic External Data Provider LAB BLOOD ORDERAB LES Final Result [facility] [address] [place] [phone] * (ABNORMAL) ~PT, ~INR - ANTI COAG CLINIC (02/07/2025 1:05 PM EDT) Only the most recent of4 resultswithin the time period is included. [facility] Prothrombin Time INR 2.8(H) 0.9 - 1.1 [facility] Comment:METER #: [id number] TERNATIONAL NORMALIZED RATIO (INR) REFERENCE RANGES Reference RangeFor patients not on anticoagulant therapy: 0.9 - 1.1INR ranges for oral anticoagulanttherapy:For prevention and treatment of venous thrombosis and pulmonary embolism: 2.0 - 3.0For acute myocardial infarction with aspirin therapy: 2.0 - 3.0For acute myocardial infarction without aspirin therapy: 3.0 - 4.0For patients with mechanical prosthetic heart valves: 2.5 - 3.5 02/07/2025 1:05 PM EDT 02/07/2025 1:07 PM EDT us Generic External Data Provider LAB BLOOD ORDERAB LES Final Result [facility] [address] [place] [phone] * TSH with Reflex to Free T4 (01/16/2025 9:13 AM EDT) [facility] TSH reflex Free T4 1.80 0.32 - 4.0 uIU/mL [facility] Blood Venous blood specimen / Unknown 01/16/2025 9:13 AM EDT 01/16/2025 11:29 AM EDT us Pedro Julian MD LAB BLOOD ORDERABLES Final Result Performing Organization Address City/[facility]/ZIP Co de Phone Number [facility] [address] [place] [phone] * hCG, Total, Quantitative (01/16/2025 9:13 AM EDT) HCG Quantitative <2 mIU/mL [facility] Blood Venous blood specimen / Unknown 01/16/2025 9:13 AM EDT 01/16/2025 11:29 AM EDT Pedro Julian MD LAB BLOOD ORDERABLES Final Result Performing Organization Address City/[facility]/ZIP Co de Phone Number [facility] [address] [place] [address] [phone] * (ABNORMAL) Lipid Panel, Standard (01/16/2025 9:13 AM EDT) Pathologist [facility] Triglycerides 40 <150 mg/dL [facility] Comment:Desirable Triglyceri de: less than 150 mg/dLBorderline High Triglyceride 150-199 mg/dLHigh Triglyceride: 200-499 mg/dLVery High Triglyceride: greater than or equal to 5OO mg/dL Cholesterol 93 <200 mg/dL [facility] Comment:Desirable Cholestero l: less than 200 mg/dLBorderline High Cholesterol: 200-239 mg/dLHigh Cholesterol: greater than 239 mg/dL LDL Cholesterol Calculated 58 <100 mg/dL [facility] Comment:Desirable LDL: less than 100 mg/dLNear Optimal/Above Optimal LDL: 110- 129 mg/dLBorderline High LDL: 130-159 mg/dLHigh LDL: 160-189 mg/dLVery High LDL: greater than or equal to 190 mg/dL HDL Cholesterol 27(L) >40 mg/dL [facility] Comment:Desirable HDL: great er than 40 mg/dL Note: This HDL assay may give artificially low results in patients with liver disease. Blood Venous blood specimen / Unknown 01/16/2025 9:13 AM EDT 01/16/2025 11:29 AM EDT Pedro Julain MD LAB BLOOD ORDERABLES Final Result Performing Organization Address City/[facility]/ZIP Co de Phone Number [facility] [address] [place] [phone] * (ABNORMAL) Basic Metabolic Panel (01/16/2025 9:13 AM EDT) Sodium 141 135 - 145 mmol/L [facility] Potassium 4.5 3.3 - 5.1 mmol/L [facility] Chloride 111(H) 96 - 108 mmol/L [facility] Carbon Dioxide 25 22 - 29 mmol/L [facility] Anion Gap 10(L) 12 - 20 [facility] Urea Nitrogen (BUN) 28(H) 9 - 16 mg/dL [facility] Creatinine, Serum 1.90(H) 0.5 - 1.4 mg/dL [facility] Estimated Glomerular Filt Rate 34 [facility] Comment:Chronic Kidney Disea se: Estimated GFR < 60 mL/min/1.44s5Npaisf Kidney Disease: Estimated GFR < 15 mL/min/1.73m2 Glucose 93 60 - 115 mg/dL [facility] Calcium 8.7 8.4 - 10.2 mg/dL [facility] Blood Venous blood specimen / Unknown 01/16/2025 9:13 AM EDT 01/16/2025 11:29 AM EDT Pedro Julian MD LAB BLOOD ORDERABLES Final Result [facility] [address] [place] [phone] [phone] * Prolactin (01/16/2025 8:13 AM EDT) Prolactin 9.2 2.0 - 18.0 ng/mL [facility] Comment:THIS TEST WAS PERFOR MED AT:[facility] [place] [id number] SEGURA MD Blood Venous blood specimen / Unknown 01/16/2025 8:13 AM EDT 01/16/2025 11:29 AM EDT Pedro Julian MD LAB BLOOD ORDERABLES Final Result Performing Organization Address City/State/[facility] Co de Phone Number [facility] [address] [place] [address] [phone] * DHEA Sulfate (01/16/2025 8:13 AM EDT) DHEA Sulfate 44 3 - 225 mcg/dL [facility] Comment:THIS TEST WAS PERFOR MED AT:[facility] [address] [phone] SEGURA MD Blood Venous blood specimen / Unknown 01/16/2025 8:13 AM EDT 01/16/2025 11:29 AM EDT Pedro Julian MD LAB BLOOD ORDERABLES Final Result Performing Organization Address [facility] de Phone Number [facility] [address] [place] [phone] * (ABNORMAL) Estradiol (01/16/2025 8:13 AM EDT) Pathologist [facility] Estradiol Ultra Sensitive 37(A) < OR = 29 pg/mL [facility] Comment:This test was develo ped and its analytical performancecharacteristics have been determined by [employer].It has not been cleared or approved by the FDA. This assayhas been validated pursuant to the CLIA regulations and isused for clinical purposes.THIS TEST WAS PERFORMED AT:[facility] [id number] [phone] RODRIGUEZ MD,PHD,VIPUL Blood Venous blood specimen / Unknown 01/16/2025 8:13 AM EDT 01/16/2025 11:29 AM EDT Pedro Julian MD LAB BLOOD ORDERABLES Final Result Performing Organization Address [facility] Co de Phone Number [facility] [address] [place] [address] [phone] * Testosterone, Free (Dialysis) And Total, MS (01/16/2025 8:13 AM EDT) Testosterone, Total 498 250 - 1100 ng/dL [facility] Comment:Men with clinically significant hypogonadalsymptoms and testosterone values repeatedly inthe range of the 200-300 ng/dL or less, maybenefit from testosterone treatment afteradequate risk and benefits counseling.For additional information, please refer tohttp://education.[employer]/faq/TiijbHjulpyzkzuqeMGGLXGQZB975(This link is being provided for informational/educational purposes only.)This test was developed and its analytical performancecharacteristics have been determined by [employer] [place], [place]. It hasnot been cleared or approved by the U.S. Food and DrugAdministration. This assay has been validated pursuantto the CLIA regulations and is used for clinicalpurposes. Testosterone, Free 60.8 30.0 - 135.0 pg/mL [facility] Comment:This test was develo ped and its analytical performancecharacteristics have been determined by [employer] [place], [place]. It hasnot been cleared or approved by the U.S. Food and DrugAdministration. This assay has been validated pursuantto the CLIA regulations and is used for clinicalpurposes.THIS TEST WAS PERFORMED AT:[facility] [id number] [place] [phone] CULLEN MD,PHD Blood Venous blood specimen / Unknown 01/16/2025 8:13 AM EDT 01/16/2025 11:29 AM EDT us Pedro Julian MD LAB BLOOD ORDERABLES Final Result [facility] [address] [place] [phone] * (ABNORMAL) LH (01/16/2025 8:13 AM EDT) Pathologist [facility] Lutenizing Hormone 37.7(A) 1.6 - 15.2 mIU/mL [facility] Comment:THIS TEST WAS PERFOR MED AT:[facility] [place] [address]OEYUWMADAI SEGURA MD Blood Venous blood specimen / Unknown 01/16/2025 8:13 AM EDT 01/16/2025 11:29 AM EDT Pedro Julian MD LAB BLOOD ORDERABLES Final Result Performing Organization Address [facility] Co de Phone Number [facility] [address] [place], [place] [phone] * (ABNORMAL) FSH (01/16/2025 8:13 AM EDT) Follicle Stimulating Hormone 49.9(A) 1.4 - 12.8 mIU/mL [facility] Comment:THIS TEST WAS PERFOR MED AT:[employer] [place] [address]RPVCVMADAI SEGURA MD Blood Venous blood specimen / Unknown 01/16/2025 8:13 AM EDT 01/16/2025 11:29 AM EDT Pedro Julian MD LAB BLOOD ORDERABLES Final Result Performing Organization Address [facility] Co de Phone Number [facility] [address] [place] [address] [phone] * BI Mammogram Diagnostic Tomosynthesis Bilateral (04/11/2024 3:15 PM EDT) Anatomical Region Laterality Modality Breast Bilateral Mammography 04/11/2024 3:15 PM EDT Narrative 04/11/2024 4:59 PM EDT ? [facility] ? [address] ?[place] [address] ? Mammography Report ? Signed ? Patient: Pablo Quinteros,Jamie ?MR#: ?? [id number] ? : 1945 ?Acct:[id number] ? Age/Sex: 79 / M ?ADM Date: 06/04/24 ? Loc: HO.MAMMO ? Attending Dr: Pedro Webber MD ? Ordering Physician: Pedro Webber MD ?Resu ?? lts: 2Benign Findings ? Date of Service: 04/11/24 ?Follow Up: 1 Year From Orig ?? inal Mammogram ? Procedure(s): MM tomosynthesis diagnostic BI ?? Accession Number(s): [id number] ? cc: Pedro Webber MD ? EXAMINATION: [...] Bradley MD in OV> ?04/11/241653 ? DD/ ? TD/TT: ? Communication Spec: ? Procedure Note Yazan Peters - 04/11/2024 [facility] [address] [place] [address] Dr. Mckeon, CHERYLE [address] Mammography Report Signed Patient: Jaime CarpioR#: [id number] : 6Acct:[id number] Age/Sex: 79 / MADM Date: 04/11/24 Loc: HO.MAMMO Attending Dr: Pedro Webber MD Ordering Physician: Pedro Webber MDResu lts: 2Benign Findings Date of Service: 04/11/24Follow Up: 1 Year From [facility] Mammogram Procedure(s): MM tomosynthesis diagnostic BI Accession Number(s): [id number] cc: Pedro Webber MD EXAMINATION: MM DIAGNOSTIC [...] in OV> 04/11/24 1654 DD/ 1515 TD/TT: Communication Spec: Pedro Julian MD IMG BI PROCEDURES Fin al Result * HEPATITIS C AB W/REFL TO HCV RNA, QN, PCR (12/24/2021 8:24 AM EST) HEPATITIS C ANTIBODY NON-REACT SIL NON-REACT SIL [facility] INDEX 0.01 <1.00 [facility] Comment: ?? HCV antibody was non-reactive. There is no laboratory ?? evidence of HCV infection. ?? In most cases, no further action is required. However, if recent HCV exposure is suspected, a test for HCV RNA (test code 01163) is suggested. ?? For additional information please refer to http://education.Matter and Form.[employer]iemens/faq/WHJ35o4 (This link is being provided for informational/ educational purposes only.) ?? 12/24/2021 8:24 AM EST us Pedro Julian MD HISTORICAL/NON ORDERA BLE LABS Final Result [facility] [address] [place] [address], from Last 3 Months or Most Recently Relevant to Health Maintenance Insurance Care Teams Warp Picker Relationship Specialty Start Date End Date Pedro Pulliam MD [address] [place] [phone] PCP - General Internal Medicine 09/10/14 Niko Salamanca MD [address] [place] [address] Drive [address] [place] [address] Nephrology 01/16/25
--- OUTSIDE RECORDS SUMMARY | 2025-02-07 15:36 | XMS_ITS | Encounter Summary ---
Author Organization [facility] Address [address] [facility] 7t [place] [address] Care Team Providers Care Plastic Card Grader Cardroom Name Role Phone Pedro Pulliam MD Primary Care Provide r Niko Salamanca MD Unavailable [phone] Encounter Details Date Type Department Care Team (Late st Contact Info) Description 05/31/2023 Orders Only [facility] [address] [place] [address] Shanita Pfeiffer LPN Social History Tobacco Use [...] Description 04/17/2025 1:15 PM EDT Office Visit [facility] [address] [place] [phone] Pedro Pulliam MD [address] [place] [address] documented as of this encounter Visit Diagnoses Not on filedocumented in this encounter Care Teams Plastic Card Grader Cardroom Relationship Specialty Start Date End Date Pedro Pulliam MD [address] [place] [phone] PCP - General Internal Medicine 09/10/14 Niko Salamanca MD [address] [place] [address] Nephrology 01/16/25 documented as of this encounter
--- OUTSIDE RECORDS SUMMARY | 2025-02-07 15:36 | XMS_ITS | Encounter Summary ---
Author Organization [employer] Address [address] [facility] [address] [place] [address] Care Team Providers Care Medical Front Desk Specialist Name Role Phone Pedro Pulliam MD Primary Care Provide r Niko Salamanca MD Unavailable [phone] Encounter Details Date Type Department Care Team (Late st Contact Info) Description 02/07/2025 Orders Only GENERIC EXTERNAL DATA [...] Description 04/17/2025 1:15 PM EDT Office Visit [facility] [address] [place] [address] Pedro Pulliam MD [address] [place] [address] documented as of this encounter Procedures Procedure Name Priority Date/Time Associated Diagnosis Comments PROTHROMBIN TIME WHOLE BLD POC Routine 02/07/2025 1:05 PM EDT ~PT, ~INR - ANTI COAG CLINIC Routine 02/07/2025 1:05 PM EDT documented in this encounter Results * (ABNORMAL) PROTHROMBIN TIME WHOLE BLD POC (02/07/2025 1:05 PM EDT) Pathologist [facility] Protime 34.1(H) 11.1 - 13.5 sec [facility] 02/07/2025 1:05 PM EDT 02/07/2025 1:07 PM EDT us Generic External Data Provider LAB BLOOD ORDERAB LES Final Result [facility] [address] [place] [address] [phone] * (ABNORMAL) ~PT, ~INR - ANTI COAG CLINIC (02/07/2025 1:05 PM EDT) Pathologist [facility] Prothrombin Time INR 2.8(H) 0.9 - 1.1 [facility] Comment:METER #: [id number] TERNATIONAL NORMALIZED RATIO (INR) REFERENCE RANGES Reference [...] Provider LAB BLOOD ORDERAB LES Final Result [facility] [address] [place] [address] [phone] documented in this encounter Visit Diagnoses Not on filedocumented in this encounter Additional Health Concerns Assessment Noted Time PHQ-9 Depression Total Score: 0 10/17/20 24 1:50 PM EST documented as of this encounter Care Teams Medical Front Desk Specialist Relationship Specialty Start Date End Date Pedro Pulliam MD [address] [place] [phone] PCP - General Internal Medicine 09/10/14 Niko Salamanca MD [address] [place] [address] Nephrology 01/16/25 documented as of this encounter
--- OUTSIDE RECORDS SUMMARY | 2025-02-07 15:36 | XMS_ITS | Encounter Summary ---
Author Organization [employer] Address [address] [facility] [address] 7t [place] [address] Care Team Providers Care Drama Director Name Role Phone Pedro Pulliam MD Primary Care Provide r Niko Salamanca MD Unavailable [phone] Reason for Visit * Reason Onset Date Comments follow up needed 11/20/2024 Encounter Details Date Type Department Care Team ([facility] st Contact Info) Description 11/20/2024 Telephone [facility] 230 [place], [place] [phone] Pedro Pulliam MD 230 [place], [place] [phone] follow up needed Social History Tobacco Use [...] 11/21/2024 10:42 AM EST TC placed to [facility] Plastic Surgery office [...] 12:47 PM EST Tc from Randa with [facility] plastic surgery reporting that they saw [...] Description 04/17/2025 1:15 PM EDT Office Visit [facility] 230 [place] [address] Pedro Pulliam MD 230 [place] [address] documented as of this encounter Visit Diagnoses Not on filedocumented in this encounter Additional Health Concerns Assessment Noted Time PHQ-9 Depression Total Score: 0 10/17/20 24 1:50 PM EST documented as of this encounter Care Teams Drama Director Relationship Specialty Start Date End Date Pedro Pulliam MD 230 [place] [address] PCP - General Internal Medicine 09/10/14 Niko Salamanca MD [address] [place] [address] Drive [address] [place] [address] Nephrology 01/16/25 documented as of this encounter
--- OUTSIDE RECORDS SUMMARY | 2025-02-07 15:36 | XMS_ITS | Encounter Summary ---
Author Organization [employer] Address [address] [facility] [address] 7t [place] [address] Care Team Providers Care Assembler Bonding Name Role Phone Pedro Pulliam MD Primary Care Provide r Niko Salamanca MD Unavailable [phone] Encounter Details Date Type Department Care Team (Late st Contact Info) Description 05/31/2024 Telephone [facility] MEDICINE 230 [place], [place] [phone] Pedro Pulliam MD 230 [place], [place] [phone] Social History Tobacco Use Types Packs/Day Years [...] line 05/31/24 at 1:21 PM Name of Caller/Facility:[facility] Callback number: [phone] Reason for Call: INR 1.4 no missed [...] Description 04/17/2025 1:15 PM EDT Office Visit [facility] 230 [place] [address] Pedro Pulliam MD 230 [place] [address] documented as of this encounter Visit Diagnoses Not on filedocumented in this encounter Additional Health Concerns Assessment Noted Time PHQ-9 Depression Total Score: 1 09/23/20 23 1:21 PM EST documented as of this encounter Care Teams Assembler Bonding Relationship Specialty Start Date End Date Pedro Pulliam MD [address] [place] [id number] PCP - General Internal Medicine 09/10/14 Niko Salamanca MD [address] [place] [address] Drive [address] [place] [address] Nephrology 01/16/25 documented as of this encounter
--- OUTSIDE RECORDS SUMMARY | 2025-02-07 15:36 | XMS_ITS | Encounter Summary ---
Author Organization [employer] [facility] Address 75 [facility] 7t [place] [address] Care Team Providers Care Starch Mangle Tender Name Role Phone Pedro Pulliam MD Primary Care Provide r Niko Salamanca MD Unavailable Encounter Details Date Type Department Care Team (Late st Contact Info) Description 02/25/2023 Orders Only [facility] MEDICINE [address] [place] [address] Shanita Pfeiffer LPN Social History Tobacco Use [...] Description 04/17/2025 1:15 PM EDT Office Visit [facility]INE [address] [place] [address] Pedro Pulliam MD 230 [place] [address] documented as of this encounter Visit Diagnoses Not on filedocumented in this encounter Care Teams Starch Mangle Tender Relationship Specialty Start Date End Date Pedro Pulliam MD [address] [place] [address] [phone] PCP - General Internal Medicine 09/10/14 Niko Salamanca MD [address] [place] [address] Nephrology 01/16/25 documented as of this encounter
== END 2025-02-07 13:11 | disposition home or self-care (01) ==
LOC: HO.ACS 13:00
PROVIDERS: PCP Internal Medicine; Visit Provider Internal Medicine Medical Oncology
DX: Z79.01 Long term (current) use of anticoagulants (principal)

== ENCOUNTER → 2025-02-07 12:59 | Outpatient (BNVA) | payer OTHER, SELFPAY | PROVIDERS: PCP Internal Medicine; Visit Provider Internal Medicine Medical Oncology | DX: I48.0 Paroxysmal atrial fibrillation (principal); Z51.81 Encounter for therapeutic drug level monitoring; Z79.01 Long term (current) use of anticoagulants | CPT/HCPCS: 85610; 99211 ==

== ENCOUNTER 2025-02-19 15:14 | Outpatient (REF) | payer OTHER, SELFPAY ==
--- NOTE | ~2025-02-19 | US_ITS ---
EXAMINATION: US RETROPERITONEAL LIMITED (RENAL ONLY) CLINICAL INFORMATION: DJD. COMPARISON: Renal ultrasound 08/18/2024. TECHNIQUE: Routine retroperitoneal ultrasound imaging of kidneys is performed. FINDINGS: RIGHT KIDNEY: 8.7 x 4.4 x 2.5 cm (SAG x AP x TRV). Previously right kidney measured 9.7 x 4.2 x 4.0 cm. The kidney is normal in size, contour, and echogenicity. Renal cortical thickness is normal. There is anechoic cyst mid pole measuring 0.8 x 0.7 x 0.8 cm. It is new. No echogenic calculi or hydronephrosis seen. No hydronephrosis. LEFT KIDNEY: 9.0 5.8 x 4.4 cm (SAG x AP x TRV). The kidney is normal in size, contour, and echogenicity. Renal cortical thickness is normal. There is anechoic cyst in the midpole measuring 0.9 x 0.8 x 0.8 cm. A few echogenic calcified vessels seen in the midpole. A echogenic calculi noted. No hydronephrosis. US/US renal BI IMPRESSION: Bilateral simple renal cysts. No echogenic renal calculi or hydronephrosis.. Electronically signed by: Mark Walker MD 02/19/2025 04:50 PM EDT
--- NOTE | ~2025-02-19 | US_ITS ---
EXAMINATION: US SCROTUM CLINICAL INFORMATION: Right testicular discomfort. COMPARISON: 01/17/2013 TECHNIQUE: A sonogram of the scrotum was performed assessing newman-scale appearance and color Doppler flow. Spectral Doppler analysis of the arterial and venous flow were performed in the testes bilaterally. FINDINGS: RIGHT: Right testicle measures 3.9 x 2.2 x 2.6 cm, volume 12.1 mL. No focal testicular parenchymal lesions are visualized. Spectral Doppler analysis of the arterial and venous flow is increased in the right testis. Right epididymal head is normal in size. No right hydrocele or varicocele is seen. Right epididymal Doppler flow is increased. LEFT: Left testicle measures 3.6 x 1.8 x 2.4 cm, volume 8.3 mL. No focal testicular parenchymal lesions are visualized. Spectral Doppler analysis of the arterial and venous flow is increased in the left testis. Left epididymal head is normal in size. No left hydrocele or varicocele is seen. Left epididymal Doppler flow is increased. There are 2 tiny epididymal head cysts, the larger measuring 6 mm. US/US scrotum IMPRESSION: 1. Findings highly suggestive of bilateral epididymoorchitis. 2. No evidence of testicular torsion or mass. Electronically signed by: Miguel A Bradley MD 02/19/2025 04:53 PM EDT
--- OUTSIDE RECORDS SUMMARY | 2025-02-19 17:45 | XMS_ITS | Encounter Summary ---
Author Organization [employer] [facility] Address [address] [facility] [address] 7t [place] [address] Care Team Providers Care Design Manager Name Role Phone Pedro Pulliam MD Primary Care Provide r Niko Salamanca MD Unavailable [phone] Reason for Visit * Reason Comments Med Refill Encounter Details Date Type Department Care Team (Late st Contact Info) Description 06/02/2024 Refill [facility] 230 [place], [place] [phone] Pedro Pulliam MD 230 [place], [place] [phone] Primary hypertension; Stage 3 chronic kidney disease, [...] EDT Office Visit [facility] 230 [place] [address] Pedro Pulliam MD 230 [place] [address] documented as of this encounter Visit Diagnoses Diagnosis Primary hypertension Unspecified essential hypertension Stage 3 chronic kidney disease, unspecified whether stage 3a or 3b CKD ([facility]) Nonrheumatic tricuspid valve regurgitation documented in this encounter Additional Health Concerns Assessment Noted Time PHQ-9 Depression Total Score: 1 09/23/20 23 1:21 PM EST documented as of this encounter Care Teams Design Manager Relationship Specialty Start Date End Date Pedro Pulliam MD 230 [place] [address] PCP - General Internal Medicine 09/10/14 Niko Salamanca MD [address] [facility] [address] [place] [address] Nephrology 01/16/25 documented as of this encounter
--- OUTSIDE RECORDS SUMMARY | 2025-02-19 17:45 | XMS_ITS | Encounter Summary ---
Author Organization [employer] Address [address] [facility] [address] 7t [place] [address] Care Team Providers Care Community Midwife Name Role Phone Pedro Pulliam MD Primary Care Provide r Niko Salamanca MD Unavailable [phone] Encounter Details Date Type Department Care Team (Late st Contact Info) Description 05/31/2024 Telephone [facility]INE 230 [place], [place] [phone] Pedro Pulliam MD 230 [place], [place] [phone] Social History Tobacco Use Types Packs/Day Years [...] line 05/31/24 at 1:21 PM Name of Caller/Facility:[facility] Callback number: [phone] Reason for Call: INR 1.4 no missed [...] Visit [facility] MED[facility]INE [address] [place] [address] Pedro Pulliam MD 230 [place] [address] documented as of this encounter Visit Diagnoses Not on filedocumented in this encounter Additional Health Concerns Assessment Noted Time PHQ-9 Depression Total Score: 1 09/23/20 23 1:21 PM EST documented as of this encounter Care Teams Community Midwife Relationship Specialty Start Date End Date Pedro Pulliam MD [address] [place] [address] PCP - General Internal Medicine 09/10/14 Niko Salamanca MD [address] [place] [address] Drive [address] [place] [address] Nephrology 01/16/25 documented as of this encounter
--- OUTSIDE RECORDS SUMMARY | 2025-02-19 17:45 | XMS_ITS | Encounter Summary ---
Author Organization [employer] Address [address] [facility] [address] 7t [place] [address] Care Team Providers Care Marine Radio Installer And Servicer Name Role Phone Pedro Pulliam MD Primary Care Provide r Niko Salamanca MD Unavailable [phone] Reason for Visit * Reason Onset Date Comments OV 03/1602/17/2024 Encounter Details Date Type Department Care Team (Late st Contact Info) Description 02/17/2024 Telephone [facility] MEDICINE 230 [place], [place] [phone] Pedro Pulliam MD 230 [place], [place] [phone] OV 03/16 Social History Tobacco Use Types [...] any questions you can contact pt at [phone]. documented in this encounter Plan of Treatment Upcoming Encounters Date Type Department Care Team (Late st Contact Info) Description 04/17/2025 1:15 PM EDT Office Visit [facility] MED[facility]INE 230 [place] [address] Pedro Pulliam MD 230 [place] [address] documented as of this encounter Visit Diagnoses Not on filedocumented in this encounter Additional Health Concerns Assessment Noted Time PHQ-9 Depression Total Score: 1 09/23/20 23 1:21 PM EST documented as of this encounter Care Teams Marine Radio Installer And Servicer Relationship Specialty Start Date End Date Pedro Pulliam MD 230 [place] [address] PCP - General Internal Medicine 09/10/14 Niko Salamanca MD [address] [place] [address] [address] [place] [address] Nephrology 01/16/25 documented as of this encounter
--- OUTSIDE RECORDS SUMMARY | 2025-02-19 17:45 | XMS_ITS | Encounter Summary ---
Author Organization [employer] [facility] Address [address] [facility] [address] 7t [place] [address] Care Team Providers Care Machine Cementer And Folder Name Role Phone Pedro Pulliam MD Primary Care Provide r Niko Salamanca MD Unavailable [phone] Encounter Details Date Type Department Care Team (Late st Contact Info) Description 02/01/2023 Orders Only [facility]EDS [address] [place] [address] Shira Castano LPN Social History Tobacco Use [...] Description 04/17/2025 1:15 PM EDT Office Visit [facility] 230 [place] [address] Pedro Pulliam MD 230 [place], [place] [phone] documented as of this encounter Visit Diagnoses Not on filedocumented in this encounter Care Teams Machine Cementer And Folder Relationship Specialty Start Date End Date Pedro Pulliam MD 230 [place], [place] [phone] PCP - General Internal Medicine 09/10/14 Niko Salamanca MD [address] [place] [address] Nephrology 01/16/25 documented as of this encounter
--- OUTSIDE RECORDS SUMMARY | 2025-02-19 17:45 | XMS_ITS | Encounter Summary ---
Author Organization [employer] Address [address] [facility] [address] 7t [place] [address] Care Team Providers Care Film Library Clerk Name Role Phone Pedro Pulliam MD Primary Care Provide r Niko Salamanca MD Unavailable [phone] Reason for Visit * Reason Onset Date Comments follow up needed 11/20/2024 Encounter Details Date Type Department Care Team ([facility] st Contact Info) Description 11/20/2024 Telephone [facility] 230 [place], [place] [phone] Pedro Pulliam MD 230 [place], [place] [phone] follow up needed Social History Tobacco Use [...] 11/21/2024 10:42 AM EST TC [place] [facility] [place] and spoke to their [...] 12:47 PM EST Tc from Randa with [facility] reporting that they saw pt [...] Description 04/17/2025 1:15 PM EDT Office Visit [facility] [facility] 230 [place] [address] Pedro Pulliam MD 230 [place] [address] documented as of this encounter Visit Diagnoses Not on filedocumented in this encounter Additional Health Concerns Assessment Noted Time PHQ-9 Depression Total Score: 0 10/17/20 24 1:50 PM EST documented as of this encounter Care Teams Film Library Clerk Relationship Specialty Start Date End Date Pedro Pulliam MD 230 [place] [address] PCP - General Internal Medicine 09/10/14 Niko Salamanca MD [address] [place] [address] Drive [address] [place] [address] Nephrology 01/16/25 documented as of this encounter
--- OUTSIDE RECORDS SUMMARY | 2025-02-19 17:45 | XMS_ITS | Encounter Summary ---
Author Organization [email or web address] [facility] Address [address] [facility] [address] 7t [place] [address] Care Team Providers Care Driver License Reviewing Officer Name Role Phone Pedro Pulliam MD Primary Care Provide r Niko Salamanca MD Unavailable [phone] Reason for Visit * Reason Onset Date Comments Med Refill 2023 Encounter Details Date Type Department Care Team (Late st Contact Info) Description 2023 Refill [facility] 230 [place] [address] Pedro Pulliam MD 230 [place] [address] Atrial fibrillation, unspecified type (CMS/HCC) (Primary Dx) [...] EDT Office Visit [facility] 230 [place] [address] Pedro Pulliam MD 230 [place] [address] documented as of this encounter Visit Diagnoses Diagnosis Atrial fibrillation, unspecified type (CMS/HCC)- Primary documented in this encounter Care Teams Driver License Reviewing Officer Relationship Specialty Start Date End Date Pedro Pulliam MD 230 [place] [address] PCP - General Internal Medicine 09/10/14 Niko Salamanca MD [address] [place] [address] Drive [address] [place] [address] Nephrology 01/16/25 documented as of this encounter
--- OUTSIDE RECORDS SUMMARY | 2025-02-19 17:45 | XMS_ITS | Encounter Summary ---
Author Organization [employer] [facility] Address 75 [facility] 7t [place] [address] Care Team Providers Care Route Sales Associate Name Role Phone Pedro Pulliam MD Primary Care Provide r Niko Salamanca MD Unavailable [phone] Encounter Details Date Type Department Care Team (Late st Contact Info) Description 01/06/2023 Orders Only [facility] MED & PEDS [address] [place] [address] Shira Castano LPN Social History Tobacco Use [...] 04/17/2025 1:15 PM EDT Office Visit [facility] MEDICINE 230 [place] [address] Pedro Pulliam MD 230 [place], [place] [phone] documented as of this encounter Visit Diagnoses Not on filedocumented in this encounter Care Teams Route Sales Associate Relationship Specialty Start Date End Date Pedro Pulliam MD 230 [place], [place] [phone] PCP - General Internal Medicine 09/10/14 Niko Salamanca MD [address] [place] [address] Nephrology 01/16/25 documented as of this encounter
--- OUTSIDE RECORDS SUMMARY | 2025-02-19 17:45 | XMS_ITS | Encounter Summary ---
Author Organization [employer] [facility] Address [address] [facility] 7t [place] [address] Care Team Providers Care Community Engagement Representative Name Role Phone Pedro Pulliam MD Primary Care Provide r Niko Salamanca MD Unavailable [phone] Encounter Details Date Type Department Care Team (Late st Contact Info) Description 02/25/2023 Orders Only [facility] MEDICINE [address] [place] [address] Shanita Pfeiffer LPN Social History Tobacco Use [...] Office Visit [facility]INE [address] [place] [address] Pedro Pulliam MD 230 [place] [address] documented as of this encounter Visit Diagnoses Not on filedocumented in this encounter Care Teams Community Engagement Representative Relationship Specialty Start Date End Date Pedro Pulliam MD [address] [place] [phone] PCP - General Internal Medicine 09/10/14 Niko Salamanca MD [address] [address] [facility] [address] [place] [address] Nephrology 01/16/25 documented as of this encounter
--- OUTSIDE RECORDS SUMMARY | 2025-02-19 17:45 | XMS_ITS | Encounter Summary ---
Author Organization [employer] [facility] Address [address] [facility] 7t [place] [address] Care Team Providers Care Diaper Folder Name Role Phone Pedro Pulliam MD Primary Care Provide r Niko Salamanca MD Unavailable [phone] Encounter Details Date Type Department Care Team (Late st Contact Info) Description 05/31/2023 Orders Only [facility] MEDICINE [address] [place] [address] Shanita Pfeiffer LPN Social History Tobacco Use [...] Description 04/17/2025 1:15 PM EDT Office Visit [facility] MEDICINE [address] [place] [address] Pedro Pulliam MD 230 [place] [address] documented as of this encounter Visit Diagnoses Not on filedocumented in this encounter Care Teams Diaper Folder Relationship Specialty Start Date End Date Pedro Pulliam MD [address] [place] [phone] PCP - General Internal Medicine 09/10/14 Niko Salamanca MD [address] [place] [address] Nephrology 01/16/25 documented as of this encounter
--- OUTSIDE RECORDS SUMMARY | 2025-02-19 17:45 | XMS_ITS | Clinical Summary ---
Author Organization [employer] Address [address] [place] [address] Care Team Providers Care Slug Press Operator Name Role Phone Pedro Pulliam MD Primary Care Provide r Niko Salamanca MD Unavailable [phone] Allergies No known active allergies Medications Aspirin Low Dose 81 MG EC tabletIndications: Primary hypertension TAKE 1 TABLET BY MOUTH EVERY DAY 30 tablet 6 11/30/19 24 Active warfarin (Coumadin) 5 MG tabletIndications: Atrial fibrillation, unspecified type (CMS/HCC) TAKE 1 TABLET BY MOUTH EVERY DAY DIRECTED BY COUMADIN CLINIC 90 tablet 02/10/20 24 Active warfarin (Coumadin) 5 MG tabletIndications: Atrial fibrillation, unspecified type (CMS/HCC) TAKE 1 TABLET BY MOUTH EVERY DAY DIRECTED BY COUMADIN CLINIC 90 tablet 2 07/07/20 24 Active furosemide (Lasix) 20 MG tabletIndications: Stage 3 chronic kidney disease, unspecified whether stage 3a or 3b CKD (CMS/HCC),Primary hypertension,Nonrh eumatic tricuspid valve regurgitation 1 tab daily 60 tablet 08/22/20 24 Active lisinopril 40 MG tabletIndications: Primary hypertension TAKE 1 TABLET BY MOUTH ONCE DAILY 90 tablet 1 10/17/20 24 Active ferrous sulfate (FeroSul) 325 (65 Fe) MG tabletIndications: Iron deficiency Take 1 tablet (325 mg) by mouth Once per day. 90 tablet 01/12/20 25 Active atorvastatin (Lipitor) 80 MG tabletIndications: Mixed hyperlipidemia Take 1 tablet (80 mg) by mouth at bedtime. 90 tablet 01/12/20 25 Active amLODIPine (Norvasc) 5 MG tabletIndications: Primary hypertension Take 1 tablet (5 mg) by mouth Once per day. 90 tablet 01/12/20 25 Active cholecalciferol (Vitamin D-3) 25 MCG tabletIndications: Vitamin D deficiency TAKE 1 TABLET BY MOUTH ONCE DAILY 90 tablet 02/13/20 25 Active cholecalciferol 25 MCG (1000 UT) tabletIndications: Vitamin D deficiency Take 1 tablet (25 mcg) by mouth in the morning. 90 tablet 3 02/10/20 24 025 Discontinued Active Problems Problem Noted Date Diagnosed Date [...] pt currently undergoing PT with good results. [facility] health care 09/23/2023 Assessment & Plan (10/17/2024 [...] 08/22/2015 Flu shot : 09/23/2023 Zoster: 02/26/2015 Stage 3b chronic kidney disease [...] showed diverticulosis only by Dr connors at [facility] Mixed hyperlipidemia 08/13/2015 09/15/2023 Assessment & Plan [...] the past by his vascular [place] [facility] [place] Lind[place] whose recommendation was conservative treatment, he saw NO role for any type of surgical intervention. He recommended to repeat the scan in 1 year and continue to take Asa 81 mg po daily. 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 I had recently lowered his Lasix [...] and lasix 20 mg daily prescribed by [employer]. I had recently lowered his Lasix [...] Am and 20 mg PM prescribed by [employer]. I had recently lowered his Lasix [...] Am and 20 mg PM prescribed by [employer]. Pt developed some bilateral ankle edema [...] Furosemide 20 mg po BID prescribed by [employer]. Pt developed some bilateral ankle edema [...] Furosemide 20 mg po BID prescribed by [employer]. Pt developed some bilateral ankle edema [...] clinical impression. Plan: [place] [facility] Assessment & Plan (02/01/2024 1:36 PM EDT): [...] Encounters Date Type Department Care Team Description 02/12/[address] [address] Pedro Pulliam MD Paperwork/Forms 02/11/2025 Refill [facility] [address] [place] [address] Pedro Pulliam MD Vitamin D deficiency 02/07/2025 Orders Only GENERIC EXTERNAL DATA DEPARTMENT Provider, Generic External Data 01/16/2025 Telephone [facility] [address] [place] [address] Justa Christianson RN Interoffice Communication 01/15/2025 Telephone [facility] [address] [place] [address] Pedro Pulliam MD Referral 01/11/2025 1:15 PM EST Office Visit [facility] [address] [facility] [place] [address] Pedro Pulliam MD Primary hypertension (Primary Dx); KARINA (obstructive sleep apnea); Longstanding persistent atrial fibrillation (CMS/HCC); Gynecomastia; Stage 3b chronic kidney disease (CMS/HCC); Iron deficiency; Mixed hyperlipidemia 01/11/2025 Travel 01/10/2025 Orders Only GENERIC EXTERNAL DATA DEPARTMENT Provider, Generic External Data 01/02/2025 Patient Outreach [facility] [address] [facility] [place] [address] Pedro Pulliam MD Pre-visit Planning (SDOH Screening negative and Tobacco screening negative) 12/28/2024 Telephone [facility] [address] [place] [address] Pedro Pulliam MD Chart Prep 12/20/2024 Orders [...] Description 04/17/2025 1:15 PM EDT Office Visit [facility] [address] [place], [place] [phone] Pedro Pulliam MD [address] [place] [address] Health Maintenance Due Date Last Done Comments [...] Screening 01/11/2026 01/11/2025 Lipid Panel 01/16/2030 01/16/2025, 12/0 03/2023, 12/24/2021, Additional history exists DTaP/Tdap/Td Vaccines (3 [...] Procedure Name Priority Date/Time Associated Diagnosis Comments US SCROTUM Routine 02/19/2025 3:57 PM EDT Gynecomastia US RENAL BI Routine 02/19/2025 3:38 PM EDT PROTHROMBIN TIME WHOLE BLD POC Routine 02/07/2025 [...] BILATERAL Routine 04/11/2024 3:15 PM EDT Gynecomastia MANDY HISTORICAL HEPATITIS C AB W/REFL TO HCV RNA, QN, PCR Routine 12/24/2021 8:24 AM EST from Last 3 Months or Most Recently Relevant to Health Maintenance Results * US Scrotum (02/19/2025 3:57 PM EDT) Anatomical Region Laterality Modality Body Ultrasound 02/19/2025 3:57 PM EDT Narrative 02/19/2025 4:56 PM EDT ? [facility] ?[address] ?[place] [address] ? Ultrasound Report ? Signed ? Patient: Pablo Quinteros,Jamie ?MR#: ?? [id number] ? : 1945 ?Acct:[id number] ? Age/Sex: 79 / M ?ADM Date: 04/14/25 ? Loc: HO.US ? Attending Dr: Niko Salamanca MD ? Ordering Physician: Pedro Webber MD ?? Date of Service: 02/19/25 ?? Procedure(s): US scrotum ?? Accession Number(s): [id number] ? cc: Pedro Webber MD ? EXAMINATION: ?? US SCROTUM ? CLINICAL INFORMATION: ?? Right testicular discomfort. ? COMPARISON: ?? 01/17/2013 ? TECHNIQUE: ?? A sonogram of the scrotum was performed assessing newman-scale appearance ?? and color Doppler flow. Spectral Doppler analysis of the arterial and ?? venous flow were performed in the testes bilaterally. ? FINDINGS: ? RIGHT: Right testicle measures 3.9 x 2.2 x 2.6 cm, volume 12.1 mL. No ?? focal testicular parenchymal lesions are visualized. Spectral Doppler ?? analysis of the arterial and venous flow is increased in the right ?? testis. ? Right epididymal head is normal in size. No right hydrocele or ?? varicocele is seen. Right epididymal Doppler flow is increased. ? LEFT: Left testicle measures 3.6 x 1.8 x 2.4 cm, volume 8.3 mL. No ?? focal testicular parenchymal lesions are visualized. Spectral Doppler ?? analysis of the arterial and venous flow is increased in the left ?? testis. ? Left epididymal head is normal in size. No left hydrocele or varicocele ?? is seen. Left epididymal Doppler flow is increased. There are 2 tiny ?? epididymal head cysts, the larger measuring 6 mm. ? US/US scrotum ?? IMPRESSION: ?? 1. Findings highly suggestive of bilateral epididymoorchitis. ?? 2. No evidence of testicular torsion or mass. ? Electronically signed by: ??Miguel A Bradley MD ??02/19/2025 04:53 PM EDT RP ? Dictated By: ?Miguel A Bradley MD ? Signed By: ?<Electronically signed by Miguel A Bradley MD in OV> ?02/19/25 1653 ? DD/ 1557 ? TD/TT: 02/19/25 1613 ? Test Center Administrator: ? Procedure Note Fran, Image - 04/14/[address] [address] Ultrasound Report Signed Patient: Rik Carpio#: [id number] : 6Acct:[id number] Age/Sex: 79 / MADM Date: 02/19/25 Loc: HO.US Attending Dr: Niko Salamanca MD Ordering Physician: Pedro Webber MD Date of Service: 02/19/25 Procedure(s): US scrotum Accession Number(s): [id number] cc: Pedro Webber MD EXAMINATION: US SCROTUM CLINICAL INFORMATION: Right testicular discomfort. COMPARISON: 01/17/2013 TECHNIQUE: A sonogram of the scrotum was performed assessing newman-scale appearance and color Doppler flow. Spectral Doppler analysis of the arterial and venous flow were performed in the testes bilaterally. FINDINGS: RIGHT: Right testicle measures 3.9 x 2.2 x 2.6 cm, volume 12.1 mL. No focal testicular parenchymal lesions are visualized. Spectral Doppler analysis of the arterial and venous flow is increased in the right testis. Right epididymal head is normal in size. No right hydrocele or varicocele is seen. Right epididymal Doppler flow is increased. LEFT: Left testicle measures 3.6 x 1.8 x 2.4 cm, volume 8.3 mL. No focal testicular parenchymal lesions are visualized. Spectral Doppler analysis of the arterial and venous flow is increased in the left testis. Left epididymal head is normal in size. No left hydrocele or varicocele is seen. Left epididymal Doppler flow is increased. There are 2 tiny epididymal head cysts, the larger measuring 6 mm. US/US scrotum IMPRESSION: 1. Findings highly suggestive of bilateral epididymoorchitis. 2. No evidence of testicular torsion or mass. Electronically signed by: Miguel A Bradley MD 02/19/2025 04:53 PM EDT Dictated By: Miguel A Bradley MD Signed By: <Electronically signed by Miguel A Bradley MD in OV> 02/19/25 1653 DD/ 1557 TD/TT: 02/19/25 1613 Test Center Administrator: us Pedro Julian MD IMG US PROCEDURES Ortiz david Result - Final * US RENAL BI (02/19/2025 3:38 PM EDT) Anatomical Region Laterality Modality Abdomen Ultrasound 02/19/2025 3:38 PM EDT Narrative 02/19/2025 4:52 PM EDT ? [facility] ?[address] ?[place] [address] ? Ultrasound Report ? Signed ? Patient: Pablo Quinteros,Jamie ?MR#: ?? [id number] ? : 1945 ?Acct:[id number] ? Age/Sex: 79 / M ?ADM Date: 02/19/25 ? Loc: HO.US ? Attending Dr: Niko Salamanca MD ? Ordering Physician: Niko Salamanca MD ?? Date of Service: 02/19/25 ?? Procedure(s): US renal BI ?? Accession Number(s): [id number] ? cc: Niko Salamanca MD; Pedro Webber MD ? EXAMINATION: ?? US RETROPERITONEAL LIMITED (RENAL ONLY) ? CLINICAL INFORMATION: ?? DJD. ? COMPARISON: ?? Renal ultrasound 08/18/2024. ? TECHNIQUE: ?? Routine retroperitoneal ultrasound imaging of kidneys is performed. ? FINDINGS: ? RIGHT KIDNEY: 8.7 x 4.4 x 2.5 cm (SAG x AP x TRV). Previously right ?? kidney measured 9.7 x 4.2 x 4.0 cm. The kidney is normal in size, ?? contour, and echogenicity. Renal cortical thickness is normal. There is ?? anechoic cyst mid pole measuring 0.8 x 0.7 x 0.8 cm. It is new. No ?? echogenic calculi or hydronephrosis seen. No hydronephrosis. ? LEFT KIDNEY: 9.0 5.8 x 4.4 cm (SAG x AP x TRV). The kidney is normal in ?? size, contour, and echogenicity. Renal cortical thickness is normal. ?? There is anechoic cyst in the midpole measuring 0.9 x 0.8 x 0.8 cm. A ?? few echogenic calcified vessels seen in the midpole. A echogenic ?? calculi noted. No hydronephrosis. ? US/US renal BI ?? IMPRESSION: ?? Bilateral simple renal cysts. ? No echogenic renal calculi or hydronephrosis.. ? Electronically signed by: ??Mark Walker MD ??02/19/2025 04:50 PM EDT RP ? Dictated By: ?Mark Walker MD ? Signed By: ?<Electronically signed by Mark Walker MD in OV> ?02/19/25 1650 ? DD/ 1538 ? TD/TT: 02/19/25 1548 ? Test Center Administrator: MSM ? Procedure Note Fran, Image - 02/19/2025 [place] [address] Ultrasound Report Signed Patient: Rik Carpio#: [id number] : 6Acct:[id number] Age/Sex: 79 / MADM Date: 02/19/25 Loc: HO.US Attending Dr: Niko Salamanca MD Ordering Physician: Niko Salamanca MD Date of Service: 02/19/25 Procedure(s): US renal BI Accession Number(s): [id number] cc: Niko Salamanca MD; Pedro Webber MD EXAMINATION: US RETROPERITONEAL LIMITED (RENAL ONLY) CLINICAL INFORMATION: DJD. COMPARISON: Renal ultrasound 08/18/2024. TECHNIQUE: Routine retroperitoneal ultrasound imaging of kidneys is performed. FINDINGS: RIGHT KIDNEY: 8.7 x 4.4 x 2.5 cm (SAG x AP x TRV). Previously right kidney measured 9.7 x 4.2 x 4.0 cm. The kidney is normal in size, contour, and echogenicity. Renal cortical thickness is normal. There is anechoic cyst mid pole measuring 0.8 x 0.7 x 0.8 cm. It is new. No echogenic calculi or hydronephrosis seen. No hydronephrosis. LEFT KIDNEY: 9.0 5.8 x 4.4 cm (SAG x AP x TRV). The kidney is normal in size, contour, and echogenicity. Renal cortical thickness is normal. There is anechoic cyst in the midpole measuring 0.9 x 0.8 x 0.8 cm. A few echogenic calcified vessels seen in the midpole. A echogenic calculi noted. No hydronephrosis. US/US renal BI IMPRESSION: Bilateral simple renal cysts. No echogenic renal calculi or hydronephrosis.. Electronically signed by: Mark Walker MD 02/19/2025 04:50 PM EDT RP Dictated By: Mark Walker MD Signed By: <Electronically signed by Mark Walker MD in OV> 02/19/25 1650 DD/ 1538 TD/TT: 02/19/25 1548 Test Center Administrator: CARLOTA [facility] External Provider IMG US PROCEDURES Edited Result - Final * (ABNORMAL) PROTHROMBIN TIME WHOLE BLD POC (02/07/2025 1:05 PM EDT) Only the most recent of4 resultswithin the time period is included. Protime 34.1(H) 11.1 - 13.5 sec [facility] 02/07/2025 1:05 PM EDT 02/07/2025 1:07 PM EDT Generic External Data Provider LAB BLOOD ORDERAB LES Final Result [facility] [address] [place] [phone] * (ABNORMAL) ~PT, ~INR - ANTI COAG CLINIC (02/07/2025 1:05 PM EDT) Only the most recent of4 resultswithin the time period is included. Prothrombin Time INR 2.8(H) 0.9 - 1.1 [facility] Comment:METER #: [id number] TERNATIONAL NORMALIZED RATIO (INR) REFERENCE RANGES Reference [...] 1:05 PM EDT 02/07/2025 1:07 PM EDT Generic External Data Provider LAB BLOOD ORDERAB LES Final Result Performing Organization Address [facility] Co de Phone Number [facility] [address] [place] [phone] * TSH with Reflex to Free T4 (01/16/2025 9:13 AM EDT) TSH reflex Free T4 1.80 0.32 - 4.0 uIU/mL [facility] Blood Venous blood specimen / Unknown 01/16/2025 9:13 AM EDT 01/16/2025 11:29 AM EDT Pedro Julian MD LAB BLOOD ORDERABLES Final Result Performing Organization Address [facility] Co de Phone Number [facility] [address] [place] [phone] * hCG, Total, Quantitative (01/16/2025 9:13 AM EDT) HCG Quantitative <2 mIU/mL [facility] Blood Venous blood specimen / Unknown 01/16/2025 9:13 AM EDT 01/16/2025 11:29 AM EDT Pedro Julian MD LAB BLOOD ORDERABLES Final Result Performing Organization Address [facility] Co de Phone Number [facility] [address] [place] [phone] * (ABNORMAL) Lipid Panel, Standard (01/16/2025 9:13 AM EDT) Triglycerides 40 <150 mg/dL [facility] Comment:Desirable Triglyceri de: less than 150 mg/dLBorderline High Triglyceride 150-199 mg/dLHigh Triglyceride: 200-499 mg/dLVery High Triglyceride: greater than or equal to 5OO mg/dL Cholesterol 93 <200 mg/dL [facility] Comment:Desirable Cholestero l: less than 200 mg/dLBorderline High Cholesterol: 200-239 mg/dLHigh Cholesterol: greater than 239 mg/dL LDL Cholesterol Calculated 58 <100 mg/dL [facility] Comment:Desirable LDL: less than 100 mg/dLNear Optimal/Above Optimal LDL: 110- 129 mg/dLBorderline High LDL: 130-159 mg/dLHigh LDL: 160-189 mg/dLVery High LDL: greater than or equal to 190 mg/dL HDL Cholesterol 27(L) >40 mg/dL [facility] Comment:Desirable HDL: great er than 40 mg/dL Note: This HDL assay may give artificially low results in patients with liver disease. Blood Venous blood specimen / Unknown 01/16/2025 9:13 AM EDT 01/16/2025 11:29 AM EDT us Pedro Julian MD LAB BLOOD ORDERABLES Final Result [facility] [address] [place] [phone] * (ABNORMAL) Basic Metabolic Panel (01/16/2025 9:13 AM EDT) Pathologist [facility] Sodium 141 135 - 145 mmol/L [facility] Potassium 4.5 3.3 - 5.1 mmol/L [facility] Chloride 111(H) 96 - 108 mmol/L [facility] Carbon Dioxide 25 22 - 29 mmol/L [facility] Anion Gap 10(L) 12 - 20 [facility] Urea Nitrogen (BUN) 28(H) 9 - 16 mg/dL [facility] Creatinine, Serum 1.90(H) 0.5 - 1.4 mg/dL [facility] Estimated Glomerular Filt Rate 34 [facility] Comment:Chronic Kidney Disea se: Estimated GFR < 60 mL/min/1.92n3Ipycph Kidney Disease: Estimated GFR < 15 mL/min/1.73m2 Glucose 93 60 - 115 mg/dL [facility] Calcium 8.7 8.4 - 10.2 mg/dL [facility] Blood Venous blood specimen / Unknown 01/16/2025 9:13 AM EDT 01/16/2025 11:29 AM EDT Pedro Julian MD LAB BLOOD ORDERABLES Final Result [facility] [address] [place] [phone] * Prolactin (01/16/2025 8:13 AM EDT) Prolactin 9.2 2.0 - 18.0 ng/mL [facility] Comment:THIS TEST WAS PERFOR MED AT:[employer] [place] [phone] SEGURA MD Blood Venous blood specimen / Unknown 01/16/2025 8:13 AM EDT 01/16/2025 11:29 AM EDT Pedro Julian MD LAB BLOOD ORDERABLES Final Result [facility] [address] [place] [phone] * DHEA Sulfate (01/16/2025 8:13 AM EDT) DHEA Sulfate 44 3 - 225 mcg/dL [facility] Comment:THIS TEST WAS PERFOR MED AT:[employer] [id number] [place] [phone] SEGURA MD Blood Venous blood specimen / Unknown 01/16/2025 8:13 AM EDT 01/16/2025 11:29 AM EDT Pedro Julian MD LAB BLOOD ORDERABLES Final Result Performing Organization Address [facility] Co de Phone Number [facility] [address] [place] [phone] * (ABNORMAL) Estradiol (01/16/2025 8:13 AM EDT) Estradiol Ultra Sensitive 37(A) < OR = 29 pg/mL [facility] Comment:This test was develo ped and its analytical performancecharacteristics have been determined by [employer].It has not been cleared or approved by the FDA. This assayhas been validated pursuant to the CLIA regulations and isused for clinical purposes.THIS TEST WAS PERFORMED AT:[employer] [id number] [facility] [place] [address]AFHVWPHILLIP RODRIGUEZ MD,PHD,VIPUL Blood Venous blood specimen / Unknown 01/16/2025 8:13 AM EDT 01/16/2025 11:29 AM EDT Pedro Julian MD LAB BLOOD ORDERABLES Final Result Performing Organization Address City/[facility] Co de Phone Number [facility] [address] [place] [phone] * Testosterone, Free (Dialysis) And Total, MS (01/16/2025 8:13 AM EDT) Testosterone, Total 498 250 - 1100 ng/dL [facility] Comment:Men with clinically significant hypogonadalsymptoms and testosterone values repeatedly inthe range of the 200-300 ng/dL or less, maybenefit from testosterone treatment afteradequate risk and benefits counseling.For additional information, please refer tohttp://education.[employer]/faq/GngzhBmpwvvlktkaiWZQOXMVED451(This link is being provided for informational/educational purposes only.)This test was developed and its analytical performancecharacteristics have been determined by [employer] [place], [place]. It hasnot been cleared or approved by the U.S. Food and DrugAdministration. This assay has been validated pursuantto the CLIA regulations and is used for clinicalpurposes. Testosterone, Free 60.8 30.0 - 135.0 pg/mL [facility] Comment:This test was develo ped and its analytical performancecharacteristics have been determined by [employer] [place], [place]. It hasnot been cleared or approved by the U.S. Food and DrugAdministration. This assay has been validated pursuantto the CLIA regulations and is used for clinicalpurposes.THIS TEST WAS PERFORMED AT:[employer] [id number] [place] [address]LASHXWKRAMSES CULLEN MD,PHD Blood Venous blood specimen / Unknown 01/16/2025 8:13 AM EDT 01/16/2025 11:29 AM EDT Pedro Julian MD LAB BLOOD ORDERABLES Final Result [facility] [address] [place] [phone] * (ABNORMAL) LH (01/16/2025 8:13 AM EDT) Lutenizing Hormone 37.7(A) 1.6 - 15.2 mIU/mL [facility] Comment:THIS TEST WAS PERFOR MED AT:[employer] [address] [phone] SEGURA MD Blood Venous blood specimen / Unknown 01/16/2025 8:13 AM EDT 01/16/2025 11:29 AM EDT Pedro Julian MD LAB BLOOD ORDERABLES Final Result Performing Organization Address [facility] Co de Phone Number [facility] [address] [place] [phone] * (ABNORMAL) FSH (01/16/2025 8:13 AM EDT) Follicle Stimulating Hormone 49.9(A) 1.4 - 12.8 mIU/mL [facility] Comment:THIS TEST WAS PERFOR MED AT:[facility] [place] [phone] SEGURA MD Blood Venous blood specimen / Unknown 01/16/2025 8:13 AM EDT 01/16/2025 11:29 AM EDT Pedro Julian MD LAB BLOOD ORDERABLES Final Result Performing Organization Address [facility] Co de Phone Number [facility] [address] [place] [phone] * BI Mammogram Diagnostic Tomosynthesis Bilateral (04/11/2024 3:15 PM EDT) Anatomical Region Laterality Modality Breast Bilateral Mammography 04/11/2024 3:15 PM EDT Narrative 04/11/2024 4:59 PM EDT ? [facility] ? [address] ?[place] [address] ? Mammography Report ? Signed ? Patient: Pablo Quinteros,Jamie ?MR#: ?? [id number] ? : 1945 ?Acct:[id number] ? Age/Sex: 79 / M ?ADM Date: 06/04/24 ? Loc: HO.MAMMO ? Attending Dr: Pedro Webber MD ? Ordering Physician: Pedro Webber MD ?Resu ?? lts: 2Benign Findings ? Date of Service: 04/11/24 ?Follow Up: 1 Year From Orig ?? inal Mammogram ? Procedure(s): MM tomosynthesis diagnostic BI ?? Accession Number(s): [id number] ? cc: Pedro Webber MD ? EXAMINATION: [...] by Miguel A Bradley MD in OV> ?04/11/24 1654 ? DD/ 151 ? TD/TT: ? Test Center Administrator: ? Procedure Note Fran, Image - 04/11/2024 [facility] [address] [place] [address] [place] [address] Mammography Report Signed Patient: Rik Carpio#: [id number] : 6Acct:[id number] Age/Sex: 79 / MADM Date: 04/11/24 Loc: HO.MAMMO Attending Dr: Pedro Webber MD Ordering Physician: Pedro Webberu lts: 2Benign Findings Date of Service: 04/11/24Follow Up: 1 Year From Orig inal Mammogram Procedure(s): MM tomosynthesis diagnostic BI Accession Number(s): [id number] cc: Pedro Webber MD EXAMINATION: MM DIAGNOSTIC [...] in OV> 04/11/24 1654 DD/ 1515 TD/TT: Test Center Administrator: Pedro Julian MD IMG BI PROCEDURES Fin al Result * HEPATITIS C AB W/REFL TO HCV RNA, QN, PCR (12/24/2021 8:24 AM EST) HEPATITIS C ANTIBODY NON-REACT SIL NON-REACT SIL [facility] INDEX 0.01 <1.00 [facility] Comment: ?? HCV antibody was non-reactive. There is no laboratory ?? evidence of HCV infection. ?? In most cases, no further action is required. However, if recent HCV exposure is suspected, a test for HCV RNA (test code 10660) is suggested. ?? For additional information please refer to http://education.[employer]/faq/AXK17g3 (This link is being provided for informational/ educational purposes only.) ?? 12/24/2021 8:24 AM EST Pedro Julian MD HISTORICAL/NON ORDERA BLE LABS Final Result [facility] [address] from Last 3 Months or Most Recently Relevant to Health Maintenance Insurance [facility] Care Teams Slug Press Operator Relationship Specialty Start Date End Date Pedro Pulliam MD [address] [place] [phone] PCP - General Internal Medicine 09/10/14 Niko Salamanca MD [address] [place] [address] [address] [place] [phone] Nephrology 01/16/25
--- OUTSIDE RECORDS SUMMARY | 2025-02-19 17:45 | XMS_ITS | Clinical Summary ---
Author Organization [facility] ity Address [address] [place] [address] Care Team Providers Care Fulling Machine Operator Name Role Phone Unavailable Primary Care [...] - 2023-2 5 season) 2024 Influenza Vaccine (Season Ended) 2025 HIB Vaccines Aged Out No longer eligi [...] age to complete this topic Meningococcal B Vaccine Aged Out No l onger eligible based on patient's age to complete this topic RSV Immunization Patients Un leigh 20 months Aged Out No longer eligible b ased on patient's age to complete this topic Varicella Vaccines Aged Out No longer eligible based on patient's age to complete this topic Advance Directives Documents on File Type Date Recorded 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
--- OUTSIDE RECORDS SUMMARY | 2025-02-19 17:45 | XMS_ITS | Clinical Summary ---
Author Organization [facility] Facility Address [address] [address] Care Team Providers Care Composer Teaching Artist Name Role Phone Pedro Snow MD Primary [...] Due Date Last Done Comments Pneumococcal Vaccine: 50+ Ye ars (1 of 2 - PCV) 1964 Influenza Vaccine (Season Ended) 2025 09/23/20 16 Hepatitis B Vaccine Aged Out No longe r eligible based on patient's age to complete this topic Care Teams Composer Teaching Artist Relationship Specialty Start Date End Date Pedro Snow MD PCP - General 11/18/20
== END 2025-02-19 15:15 | disposition home or self-care (01) ==
LOC: HO.US 15:14
PROVIDERS: PCP Internal Medicine; Visit Provider Internal Medicine Hypertension Specialist
DX: N18.9 Chronic kidney disease, unspecified (principal); N62 Hypertrophy of breast; N50.9 Disorder of male genital organs, unspecified
CPT/HCPCS: 76775; 76870

== ENCOUNTER → 2025-02-19 15:18 | Outpatient (BNV) | payer OTHER, SELFPAY | PROVIDERS: PCP Internal Medicine; Visit Provider Radiology Diagnostic Radiology | DX: N28.89 Other specified disorders of kidney and ureter (principal); N50.811 Right testicular pain | CPT/HCPCS: 76775; 76870; 93975 ==

== ENCOUNTER 2025-02-22 09:18 | Outpatient (REF) | payer OTHER, SELFPAY ==
--- OUTSIDE RECORDS SUMMARY | 2025-02-22 10:30 | XMS_ITS | Clinical Summary ---
Author Organization [employer] Address [address] [place] [address] Care Team Providers Care Claims Technician Name Role Phone Pedro Pulliam MD Primary Care Provide r Niko Salamanca MD Unavailable [phone] Allergies No known active allergies Medications [...] ONCE DAILY 90 tablet 02/13/20 25 Active sulfamethoxazole-t rimethoprim (Bactrim DS) 800-160 MG tabletIndications: Epididymoorchitis Take 1 tablet by mouth 2 times daily for 7 days. 14 tablet 02/21/20 25 025 Active cholecalciferol 25 MCG (1000 UT) tabletIndications: [...] pt currently undergoing PT with good results. [facility] care 09/23/2023 Assessment & Plan (10/17/2024 1:55 [...] showed diverticulosis only by Dr connors at [facility] Mixed hyperlipidemia 08/13/2015 09/15/2023 [...] by his vascular surgeon at [facility] (Dr Lind) whose recommendation was conservative treatment, he saw NO role for any type of surgical intervention. He recommended to repeat the scan in 1 year and continue to take Asa 81 mg po daily. Pt was last seen by his industrial registered nurse at [facility] 09/14/2023 recommended repeat US and ECHO [...] and lasix 20 mg daily prescribed by [employer]. I had recently lowered his Lasix due [...] and lasix 20 mg daily prescribed by [employer]. I had recently lowered his Lasix due [...] Am and 20 mg PM prescribed by [employer]. I had recently lowered his Lasix due [...] Am and 20 mg PM prescribed by [employer]. Pt developed some bilateral ankle edema due [...] Furosemide 20 mg po BID prescribed by [employer]. Pt developed some bilateral ankle edema due [...] Furosemide 20 mg po BID prescribed by [employer]. Pt developed some bilateral ankle edema due [...] Plan: Breast center referral at [facility] Assessment & Plan (02/01/2024 1:36 PM EDT): [...] Encounters Date Type Department Care Team Description 02/21/2025 Telephone [facility] [address] [place] [phone] Justa Christianson RN Results; Lab Orders; Referral 02/20/2025 Orders Only [facility] [address] [place] [address] Pedro Pulliam MD Epididymoorchitis (Primary Dx) 02/12/2025 Telephone [facility] [address] [place] [address] Pedro Pulliam MD Paperwork/Forms 02/11/2025 Refill [facility] [place] [address] Pedro Pulliam MD Vitamin D deficiency 02/07/2025 Orders Only GENERIC EXTERNAL DATA DEPARTMENT Provider, Generic External Data 01/16/2025 Telephone [facility] [place] [address] Justa Christianson RN Interoffice Communication 01/15/2025 Telephone [facility] [place] [address] Pedro Pulliam MD Referral 01/11/2025 1:15 PM EST Office Visit [facility] [place], [place] [address] Pedro Pulliam MD Primary hypertension (Primary Dx); KARINA (obstructive sleep apnea); Longstanding persistent atrial fibrillation (CMS/HCC); Gynecomastia; Stage 3b chronic kidney disease (CMS/HCC); Iron deficiency; Mixed hyperlipidemia 01/11/2025 Travel 01/10/2025 Orders Only GENERIC EXTERNAL DATA DEPARTMENT Provider, Generic External Data 01/02/2025 Patient Outreach [facility] [place] [address] Pedro Pulliam MD Pre-visit Planning (SDOH Screening negative and Tobacco screening negative) 12/28/2024 Telephone [facility] [place] [address] Pedro Pulliam MD Chart Prep 12/20/2024 Orders [...] 1:15 PM EDT Office Visit [facility] [address] [place] [address] Pedro Pulliam MD [address] [place] [address] Health Maintenance Due Date Last Done Comments [...] Screening 01/11/2026 01/11/2025 Lipid Panel 01/16/2030 01/16/2025, 1203/2023, 12/24/2021, Additional history exists DTaP/Tdap/Td Vaccines (3 [...] EDT Narrative 02/19/2025 4:56 PM EDT ? [facility] ?[address] ?[place] [address] ? Ultrasound Report ? Signed ? Patient: Pablo Quinteros,Jamie ?MR#: ?? [id number] ? : 1945 ?Acct:[id number] ? Age/Sex: 79 / M ?ADM Date: 02/19/25 ? Loc: HO.US ? Attending Dr: Niko Salamanca MD ? Ordering Physician: Pedro Webber MD ?? Date of Service: 02/19/25 ?? Procedure(s): US scrotum ?? Accession Number(s): [id number] ? cc: Pedro Webber MD ? EXAMINATION: [...] DD/ 1557 ? TD/TT: 02/19/25 1613 ? Relocation Commissioner: ? Procedure Note Donotuseinterpreter, Image - 02/19/2025 [place] [address] Ultrasound Report Signed Patient: Rik Carpio#: [id number] : 6Acct:[id number] Age/Sex: 79 / MADM Date: 02/19/25 Loc: HO.US Attending Dr: Niko Salamanca MD Ordering Physician: Pedro Webber MD Date of Service: 02/19/25 Procedure(s): US scrotum Accession Number(s): [id number] cc: Pedro Webber MD EXAMINATION: US SCROTUM [...] 02/19/25 1653 DD/ 1557 TD/TT: 02/19/25 1613 Relocation Commissioner: us Pedro Julian MD IMG US PROCEDURES Ortiz david Result - Final * US RENAL BI (02/19/2025 3:38 PM EDT) Anatomical Region Laterality Modality Abdomen Ultrasound 02/19/2025 3:38 PM EDT Narrative 02/19/2025 4:52 PM EDT ? [facility] ?[address] ?[place] [address] ? Ultrasound Report ? Signed ? Patient: Jamie Carpio ?MR#: ?? [id number] ? : 1945 ?Acct:[id number] ? Age/Sex: 79 / M ?ADM Date: 02/19/25 ? Loc: HO.US ? Attending Dr: Niko Salamanca MD ? Ordering Physician: Niko Salamanca MD ?? Date of Service: 02/19/25 ?? Procedure(s): US renal BI ?? Accession Number(s): [id number] ? cc: Niko Salamanca MD; Pedro Webber [...] DD/ 1538 ? TD/TT: 02/19/25 1548 ? Relocation Commissioner: MSM ? Procedure Note Fran, Image - 02/19/2025 [place] [address] Ultrasound Report Signed Patient: Rik Carpio#: [id number] : 6Acct:[id number] Age/Sex: 79 / MADM Date: 02/19/25 Loc: HO.US Attending Dr: Niko Salamanca MD Ordering Physician: Niko Salamanca MD Date of Service: 02/19/25 Procedure(s): US renal BI Accession Number(s): [id number] cc: Niko Salamanca MD; Snow-Eliel,Pedro J MD EXAMINATION: US RETROPERITONEAL LIMITED (RENAL ONLY) [...] Mark Walker MD 02/19/2025 04:50 PM EDT Dictated By: Mark Walker MD Signed By: <Electronically signed by Mark Walker MD in OV> 02/19/25 1650 DD/ 1538 TD/TT: 02/19/25 1548 Relocation Commissioner: [place] us [facility] External Provider IMG US PROCEDURES Edited Result - Final * (ABNORMAL) PROTHROMBIN TIME WHOLE BLD POC (02/07/2025 1:05 PM EDT) Only the most recent of4 resultswithin the time period is included. Protime 34.1(H) 11.1 - 13.5 sec [facility] 02/07/2025 1:05 PM EDT 02/07/2025 1:07 PM EDT us Generic External Data Provider LAB BLOOD ORDERAB LES Final Result Performing Organization Address [facility] Co de Phone Number [facility] [address] [place] [phone] * (ABNORMAL) ~PT, ~INR - ANTI COAG CLINIC (02/07/2025 1:05 PM EDT) Only the most recent of4 resultswithin the time period is included. Prothrombin Time INR 2.8(H) 0.9 - 1.1 [facility] Comment:METER #: [id number] TERNATIONAL NORMALIZED RATIO (INR) REFERENCE RANGES Reference [...] ORDERAB LES Final Result Performing Organization Address [facility] Co de Phone Number [facility] [address] [place] [phone] * TSH with Reflex to Free T4 (01/16/2025 9:13 AM EDT) Pathologist [facility] TSH reflex Free T4 1.80 0.32 - 4.0 uIU/mL [facility] Blood Venous blood specimen / Unknown 01/16/2025 9:13 AM EDT 01/16/2025 11:29 AM EDT us Pedro Julian MD LAB BLOOD ORDERABLES Final Result Performing Organization Address [facility]/ZIP Co de Phone Number [facility] [address] [place] [phone] * hCG, Total, Quantitative (01/16/2025 9:13 AM EDT) HCG Quantitative <2 mIU/mL [facility] Blood Venous blood specimen / Unknown 01/16/2025 9:13 AM EDT 01/16/2025 11:29 AM EDT Pedro Julian MD LAB BLOOD ORDERABLES Final Result [facility] [address] [place] [phone] * (ABNORMAL) Lipid Panel, Standard (01/16/2025 9:13 AM EDT) Triglycerides 40 <150 mg/dL [facility] Comment:Desirable Triglyceri de: less than 150 mg/dLBorderline High Triglyceride 150-199 mg/dLHigh Triglyceride: 200-499 mg/dLVery High Triglyceride: greater than or equal to 5OO mg/dL Cholesterol 93 <200 mg/dL [facility] Comment:Desirable Cholestero l: less than 200 mg/dLBorderline High Cholesterol: 200-239 mg/dLHigh Cholesterol: greater than 239 mg/dL LDL Cholesterol Calculated 58 <100 mg/dL [facility] Comment:Desirable LDL: less than 100 mg/dLNear Optimal/Above Optimal LDL: 110- 129 mg/dLBorderline High LDL: 130-159 mg/dLHigh LDL: 160-189 mg/dLVery High LDL: greater than or equal to 190 mg/dL HDL Cholesterol 27(L) >40 mg/dL [facility] Comment:Desirable HDL: great er than 40 mg/dL Note: This HDL assay may give artificially low results in patients with liver disease. Blood Venous blood specimen / Unknown 01/16/2025 9:13 AM EDT 01/16/2025 11:29 AM EDT Pedro Julian MD LAB BLOOD ORDERABLES Final Result [facility] [address] [place] [phone] [phone] * (ABNORMAL) Basic Metabolic Panel (01/16/2025 9:13 AM EDT) Pathologist [facility] Sodium 141 135 - 145 mmol/L [facility] Potassium 4.5 3.3 - 5.1 mmol/L [facility] Chloride 111(H) 96 - 108 mmol/L [facility] Carbon Dioxide 25 22 - 29 mmol/L [facility] Anion Gap 10(L) 12 - 20 [facility] Urea Nitrogen (BUN) 28(H) 9 - 16 mg/dL [facility] Creatinine, Serum 1.90(H) 0.5 - 1.4 mg/dL [facility] Estimated Glomerular Filt Rate 34 [facility] Comment:Chronic Kidney Disea se: Estimated GFR < 60 mL/min/1.64y6Zjkrhu Kidney Disease: Estimated GFR < 15 mL/min/1.73m2 Glucose 93 60 - 115 mg/dL [facility] Calcium 8.7 8.4 - 10.2 mg/dL [facility] Blood Venous blood specimen / Unknown 01/16/2025 9:13 AM EDT 01/16/2025 11:29 AM EDT Pedro Julian MD LAB BLOOD ORDERABLES Final Result [facility] [address] [place] [phone] [phone] * Prolactin (01/16/2025 8:13 AM EDT) Prolactin 9.2 2.0 - 18.0 ng/mL [facility] Comment:THIS TEST WAS PERFOR MED AT:[employer] [place] [id number] SEGURA MD Blood Venous blood specimen / Unknown 01/16/2025 8:13 AM EDT 01/16/2025 11:29 AM EDT Pedro Julian MD LAB BLOOD ORDERABLES Final Result Performing Organization Address City/[facility] Co de Phone Number [facility] [address] [place] [phone] * DHEA Sulfate (01/16/2025 8:13 AM EDT) DHEA Sulfate 44 3 - 225 mcg/dL [facility] Comment:THIS TEST WAS PERFOR MED AT:[facility] [address] [id number] SEGURA MD Blood Venous blood specimen / Unknown 01/16/2025 8:13 AM EDT 01/16/2025 11:29 AM EDT Pedro Julian MD LAB BLOOD ORDERABLES Final Result Performing Organization Address [facility] Phone Number [facility] [address] [place] [phone] * (ABNORMAL) Estradiol (01/16/2025 8:13 AM EDT) Pathologist [facility] Estradiol Ultra Sensitive 37(A) < OR = 29 pg/mL [facility] Comment:This test was develo ped and its analytical performancecharacteristics have been determined by [employer].It has not been cleared or approved by the FDA. This assayhas been validated pursuant to the CLIA regulations and isused for clinical purposes.THIS TEST WAS PERFORMED AT:[facility] [id number] [place] [id number] RODRIGUEZ MD,PHD,VIPUL Blood Venous blood specimen / Unknown 01/16/2025 8:13 AM EDT 01/16/2025 11:29 AM EDT Pedro Julian MD LAB BLOOD ORDERABLES Final Result Performing Organization Address City/[facility] Co de Phone Number [facility] [address] [place] [phone] * Testosterone, Free (Dialysis) And Total, MS (01/16/2025 8:13 AM EDT) Testosterone, Total 498 250 - 1100 ng/dL [facility] Comment:Men with clinically significant hypogonadalsymptoms and testosterone values repeatedly inthe range of the 200-300 ng/dL or less, maybenefit from testosterone treatment afteradequate risk and benefits counseling.For additional information, please refer tohttp://education.[employer]/faq/KhdqiBksrpwcepqttVVTHZYSLX821(This link is being provided for informational/educational purposes only.)This test was developed and its analytical performancecharacteristics have been determined by [employer] [place], [place]. It hasnot been cleared or approved by the U.S. Food and DrugAdministration. This assay has been validated pursuantto the CLIA regulations and is used for clinicalpurposes. Testosterone, Free 60.8 30.0 - 135.0 pg/mL [facility] Comment:This test was develo ped and its analytical performancecharacteristics have been determined by [employer] [place], [place]. It hasnot been cleared or approved by the U.S. Food and DrugAdministration. This assay has been validated pursuantto the CLIA regulations and is used for clinicalpurposes.THIS TEST WAS PERFORMED AT:[employer] [id number] [place] [address]ZIQWJCFRAMSES CULLEN MD,PHD Blood Venous blood specimen / Unknown 01/16/2025 8:13 AM EDT 01/16/2025 11:29 AM EDT us Pedro Julian MD LAB BLOOD ORDERABLES Final Result [facility] [address] [place] [phone] * (ABNORMAL) LH (01/16/2025 8:13 AM EDT) Lutenizing Hormone 37.7(A) 1.6 - 15.2 mIU/mL [facility] Comment:THIS TEST WAS PERFOR MED AT:[facility] [address] [address]MJNNKMADAI SEGURA MD Blood Venous blood specimen / Unknown 01/16/2025 8:13 AM EDT 01/16/2025 11:29 AM EDT Pedro Julian MD LAB BLOOD ORDERABLES Final Result Performing Organization Address [facility] de Phone Number [facility] [address] [place] [phone] * (ABNORMAL) FSH (01/16/2025 8:13 AM EDT) Follicle Stimulating Hormone 49.9(A) 1.4 - 12.8 mIU/mL [facility] Comment:THIS TEST WAS PERFOR MED AT:[facility] [address] [address]NJAVZMADAI SEGURA MD Blood Venous blood specimen / Unknown 01/16/2025 8:13 AM EDT 01/16/2025 11:29 AM EDT Pedro Julian MD LAB BLOOD ORDERABLES Final Result Performing Organization Address [facility] de Phone Number [facility] [address] [place] [phone] * BI Mammogram Diagnostic Tomosynthesis Bilateral (04/11/2024 3:15 PM EDT) Anatomical Region Laterality Modality Breast Bilateral Mammography 04/11/2024 3:15 PM EDT Narrative 04/11/2024 4:59 PM EDT ? [place] [facility] ? [address] ?[place] [address] ? Mammography Report ? Signed ? Patient: Pablo Quinteros,Jamie ?MR#: ?? [id number] ? : 1945 ?Acct:[id number] ? Age/Sex: 79 / M ?ADM Date: 04/11/24 ? Loc: HO.MAMMO ? Attending Dr: Pedro Webber MD ? Ordering Physician: Pedro Webber MD ?Resu ?? lts: 2Benign Findings ? Date of Service: 04/11/24 ?Follow Up: 1 Year From Orig ?? inal Mammogram ? Procedure(s): MM tomosynthesis diagnostic BI ?? Accession Number(s): [id number] ? cc: Pedro Webber MD ? EXAMINATION: [...] by Miguel A Bradley MD in OV> ?04/11/ 1654 ? DD/ 1515 ? TD/TT: ? Relocation Commissioner: ? Procedure Note Donotuseinterpreter, Image - 04/11/2024 [facility] [address] [place], [place] [address] Mammography Report Signed Patient: Rik Carpio#: [id number] : 6Acct:[id number] Age/Sex: 79 / MADM Date: 04/11/24 Loc: HO.MAMMO Attending Dr: Pedro Webber MD Ordering Physician: Pedro Webber MDResu lts: 2Benign Findings Date of Service: 04/11/24Follow Up: 1 Year From Orig ina Mammogram Procedure(s): MM tomosynthesis diagnostic BI Accession Number(s): [id number] cc: Pedro Webber MD EXAMINATION: MM DIAGNOSTIC [...] in OV> 04/11/24 1654 DD/ 1515 TD/TT: Relocation Commissioner: Pedro Julian MD IMG BI PROCEDURES Fin al Result * HEPATITIS C AB W/REFL TO HCV RNA, QN, PCR (12/24/2021 8:24 AM EST) HEPATITIS C ANTIBODY NON-REACT SIL NON-REACT SIL [facility] INDEX 0.01 <1.00 [facility] Comment: ?? HCV antibody was non-reactive. There is no laboratory ?? evidence of HCV infection. ?? In most cases, no further action is required. However, if recent HCV exposure is suspected, a test for HCV RNA (test code 58665) is suggested. ?? For additional information please refer to http://education.[employer]/faq/DUQ45n1 (This link is being provided for informational/ educational purposes only.) ?? 12/24/2021 8:24 AM EST Pedro Julian MD HISTORICAL/NON ORDERA BLE LABS Final Result [facility] Anywhere [address] from Last 3 Months or Most Recently Relevant to Health Maintenance Insurance [facility] Care Teams Claims Technician Relationship Specialty Start Date End Date Pedro Pulliam MD [address] [place] [phone] PCP - General Internal Medicine 09/10/14 Niko Salamanca MD [address] [place] [address] [address] [place] [phone] Nephrology 01/16/25
--- OUTSIDE RECORDS SUMMARY | 2025-02-22 10:30 | XMS_ITS | Encounter Summary ---
Author Organization [facility] Address [address] [facility] [address] [place] [address] Care Team Providers Care Senior Group Manager Name Role Phone Pedro Pulliam MD Primary Care Provide r Niko Salamanca MD Unavailable [phone] Reason for Visit * Reason Onset Date Comments Med Refill 2023 Encounter Details Date Type Department Care Team (Late st Contact Info) Description 2023 Refill [facility] [address] [place] [address] Pedro Pulliam MD [address] [place] [address] Atrial fibrillation, unspecified type (CMS/HCC) (Primary Dx) [...] 1:15 PM EDT Office Visit [facility] [address] [place] [address] Pedro Pulliam MD [address] [place] [address] documented as of this encounter Visit Diagnoses Diagnosis Atrial fibrillation, unspecified type (CMS/HCC)- Primary documented in this encounter Care Teams Senior Group Manager Relationship Specialty Start Date End Date Pedro Pulliam MD [address] [place] [address] PCP - General Internal Medicine 09/10/14 Niko Salamanca MD [address] [place] [address] Drive [address] [place] [address] Nephrology 01/16/25 documented as of this encounter
--- OUTSIDE RECORDS SUMMARY | 2025-02-22 10:30 | XMS_ITS | Encounter Summary ---
Author Organization [facility] Address [address] 7t [place] [address] Care Team Providers Care Commercial Counsel Name Role Phone Pedro Pulliam MD Primary Care Provide r Niko Salamanca MD Unavailable [phone] Encounter Details Date Type Department Care Team (Late st Contact Info) Description 02/25/2023 Orders Only [facility] MEDICINE [address] [place] [address] Shanita Pfeiffer LPN Social History Tobacco Use [...] 1:15 PM EDT Office Visit [facility] [address] [place] [address] Pedro Pulliam MD [address] [place] [address] documented as of this encounter Visit Diagnoses Not on filedocumented in this encounter Care Teams Commercial Counsel Relationship Specialty Start Date End Date Pedro Pulliam MD [address] [place] [address] [phone] PCP - General Internal Medicine 09/10/14 Niko Salamanca MD [address] [place] [address] Nephrology 01/16/25 documented as of this encounter
--- OUTSIDE RECORDS SUMMARY | 2025-02-22 10:30 | XMS_ITS | Encounter Summary ---
Author Organization [facility] Address [address] 7t [place] [address] Care Team Providers Care Mechanical Artist Name Role Phone Pedro Pulliam MD Primary Care Provide r Niko Salamanca MD Unavailable [phone] Encounter Details Date Type Department Care Team (Late st Contact Info) Description 02/01/2023 Orders Only [facility] CH[facility] MED & PEDS [address] [place] [address] Shira Castano LPN Social History Tobacco Use [...] 1:15 PM EDT Office Visit [facility] MEDICINE [address] [place] [address] Pedro Pulliam MD [address] [place], [place] [phone] documented as of this encounter Visit Diagnoses Not on filedocumented in this encounter Care Teams Mechanical Artist Relationship Specialty Start Date End Date Pedro Pulliam MD [address] [place], [place] [phone] PCP - General Internal Medicine 09/10/14 Niko Salamanca MD [address] [place] [address] Nephrology 01/16/25 documented as of this encounter
--- OUTSIDE RECORDS SUMMARY | 2025-02-22 10:30 | XMS_ITS | Encounter Summary ---
Author Organization [employer] Address [address] 7t [place] [address] Care Team Providers Care Blindmaker Name Role Phone Pedro Pulliam MD Primary Care Provide r Niko Salamanca MD Unavailable [phone] Reason for Visit * Reason Onset Date Comments OV 03/1602/17/2024 Encounter Details Date Type Department Care Team (Late st Contact Info) Description 02/17/2024 Telephone [facility] MEDICINE [address] [place], [place] [phone] Pedro Pulliam MD 230 [place], [place] [phone] OV 03/16 Social History Tobacco Use Types [...] any questions you can contact pt at [phone]. documented in this encounter Plan of Treatment Upcoming Encounters Date Type Department Care Team (Late st Contact Info) Description 04/17/2025 1:15 PM EDT Office Visit [facility] MEDICINE [address] [place] [address] Pedro Pulliam MD 230 [place] [address] documented as of this encounter Visit Diagnoses Not on filedocumented in this encounter Additional Health Concerns Assessment Noted Time PHQ-9 Depression Total Score: 1 09/23/20 23 1:21 PM EST documented as of this encounter Care Teams Blindmaker Relationship Specialty Start Date End Date Pedro Pulliam MD 230 [place] [address] PCP - General Internal Medicine 09/10/14 Niko Salamanca MD [address] [place] [address] [address] [place] [address] Nephrology 01/16/25 documented as of this encounter
--- OUTSIDE RECORDS SUMMARY | 2025-02-22 10:30 | XMS_ITS | Encounter Summary ---
Author Organization [facility] [facility] Address [address] [facility] 7t [place] [address] Care Team Providers Care Retort Press Operator Name Role Phone Pedro Pulliam MD Primary Care Provide r Niko Salamanca MD Unavailable [phone] Encounter Details Date Type Department Care Team (Late st Contact Info) Description 01/06/2023 Orders Only [facility] CHC MED & PEDS [address] [place] [address] Shira Castano LPN Social History Tobacco Use [...] Description 04/17/2025 1:15 PM EDT Office Visit [facility] MEDICINE 230 [place] [address] Pedro Pulliam MD [address] [place], [place] [phone] documented as of this encounter Visit Diagnoses Not on filedocumented in this encounter Care Teams Retort Press Operator Relationship Specialty Start Date End Date Pedro Pulliam MD [address] [place], [place] [phone] PCP - General Internal Medicine 09/10/14 Niko Salamanca MD [address] [place] [address] Nephrology 01/16/25 documented as of this encounter
--- OUTSIDE RECORDS SUMMARY | 2025-02-22 10:30 | XMS_ITS | Encounter Summary ---
Author Organization [employer] Address [address] 7t [place] [address] Care Team Providers Care Swing Grinder Name Role Phone Pedro Pulliam MD Primary Care Provide r Niko Salamanca MD Unavailable [phone] Reason for Visit * Reason Onset Date Comments follow up needed 11/20/2024 Encounter Details Date Type Department Care Team ([facility] st Contact Info) Description 11/20/2024 Telephone [facility] MEDICINE [address] [place], [place] [phone] Pedro Pulliam MD 230 [place], [place] [phone] follow up needed Social History Tobacco Use [...] 11/21/2024 10:42 AM EST TC placed to [facility] office and spoke to their [...] 12:47 PM EST Tc from Randa with [facility] plastic surgery reporting that they saw [...] Description 04/17/2025 1:15 PM EDT Office Visit [facility] MEDICINE [address] [place] [address] Pedro Pulliam MD 230 [place] [address] documented as of this encounter Visit Diagnoses Not on filedocumented in this encounter Additional Health Concerns Assessment Noted Time PHQ-9 Depression Total Score: 0 10/17/20 24 1:50 PM EST documented as of this encounter Care Teams Swing Grinder Relationship Specialty Start Date End Date Pedro Pulliam MD [address] [place] [address] PCP - General Internal Medicine 09/10/14 Niko aSlamanca MD [address] [place] [address] Drive [address] [place] [address] Nephrology 01/16/25 documented as of this encounter
--- OUTSIDE RECORDS SUMMARY | 2025-02-22 10:30 | XMS_ITS | Clinical Summary ---
Author Organization [facility] Address [address] [address] Care Team Providers Care Retail Bakery Manager Name Role Phone Pedro Snow MD Primary [...] age to complete this topic Care Teams Retail Bakery Manager Relationship Specialty Start Date End Date Pedro Snow MD PCP - General 11/18/20
--- OUTSIDE RECORDS SUMMARY | 2025-02-22 10:30 | XMS_ITS | Encounter Summary ---
Author Organization [employer] [facility] Address [address] [facility] 7t [place] [address] Care Team Providers Care Feed Crusher Name Role Phone Pedro Pulliam MD Primary Care Provide r Niko Salamanca MD Unavailable [phone] Encounter Details Date Type Department Care Team (Late st Contact Info) Description 05/31/2023 Orders Only [facility] MEDICINE [address] [place] [address] Shanita Pfeiffer LPN Social History Tobacco Use [...] 1:15 PM EDT Office Visit [facility] MEDICINE [address] [place] [address] Pedro Pulliam MD 230 [place] [address] documented as of this encounter Visit Diagnoses Not on filedocumented in this encounter Care Teams Feed Crusher Relationship Specialty Start Date End Date Pedro Pulliam MD [address] [place] [address] [phone] PCP - General Internal Medicine 09/10/14 Niko Salamanca MD [address] [place] [address] Nephrology 01/16/25 documented as of this encounter
--- OUTSIDE RECORDS SUMMARY | 2025-02-22 10:30 | XMS_ITS | Encounter Summary ---
Author Organization [employer] Address [address] 7t [place] [address] Care Team Providers Care Screwdown Operator Name Role Phone Pedro Pulliam MD Primary Care Provide r Niko Salamanca MD Unavailable [phone] Reason for Visit * Reason Onset Date Comments Results 02/21/2025 Lab Orders 02/21/2025 Referral 02/21/2025 Encounter Details Date Type Department Care Team (Late st Contact Info) Description 02/21/2025 Telephone [facility] MEDICINE [address] [place], [place] [phone] Justa Christianson, [place] [address] [place] [address] Results; Lab Orders; Referral Social History Tobacco Use Types Packs/Day [...] Telephone Encounter - Justa Christianson RN - 02/21/2025 9:58 AM EDT Telephone call placed to pt utilizing [employer] #[id number] regarding below results and POC. Informed of US results: inflammation of the testicle and epididymis tube which is commonly caused by infection. Informed PCP would like him to do a urine test, can come to the lab to submit a urine sample. PCP also placed referral to urology. If they don't contact him to book an appt within 2 weeks, let us know. Lastly, PCP placed a prescription for Abx to be taken BID x 7days. Informed that Abx could alter his INR so I will notify coumadin nurses that he is taking it. They might call him to modify his INR schedule or coumadin dosing so keep an eye out for that call. Advised to come to [facility] to give urine and spanish moss picker Abx. Pt reports that SECURITY FLEX UTILITY OFFICER comes to see him tomorrow morning, he will have her bring him here. Pt reporting increased pain in left testicle since the US. Reported that he was already having pain but it worsened after US. Informed that this is most likely from them pressing on it with the USwand and it exacerbating the inflammation that was already present. Pt with CKD, NSAIDs contraindicated. Advised tylenol as needed for pain, not to exceed 2,000mg daily. If pain does not improve or worsens after 2-3 days of Abx, let us know or come to [facility]. Pt to call if he needs anything or has concerns or come to [facility] and request to speak with me. Answered all of pt's questions. Pt verbalized understanding and denied having any further questions or concerns at this time. Telephone call placed to [facility]. Spoke with pt's coumadin nurse Joyce. Informed Bactrim 800-160mg BID x7 days being Rxd. Pt states is starting it tomorrow. Explained rational for Abx. Joyce repeated back to me and states will contact pt and will monitor closely. * Telephone Encounter - Justa Christianson RN - 02/21/2025 9:42 AM EDT ----- Message from Pedro Julian MD sent at 02/20/2025 5:30 PM EDT ----- Please contact patient . Testicular US shows finding suggestive of epididymo orchitis Plan: I have placed an order for a UA please ask patient to collect. I will be sending a Rx for Bactrim DS BID x 7 days and will be referring to Urology. Please contact the Coumadin clinic to let them know I will be prescribing bactrim x 7 days. His INRwill need to be monitored more closely documented in this encounter Plan of Treatment Upcoming Encounters Date Type Department Care Team (Late st Contact Info) Description 04/17/2025 1:15 PM EDT Office Visit [facility] MEDICINE [address] [place] [address] Pedro Pulliam MD [address] [place] [address] documented as of this encounter Visit Diagnoses Not on filedocumented in this encounter Additional Health Concerns Assessment Noted Time PHQ-9 Depression Total Score: 0 10/17/20 24 1:50 PM EST documented as of this encounter Care Teams Screwdown Operator Relationship Specialty Start Date End Date Pedro Pulliam MD [address] [place] [address] PCP - General Internal Medicine 09/10/14 Niko Salamanca MD [address] [place] [address] Drive [address] [place] [address] Nephrology 01/16/25 documented as of this encounter
--- OUTSIDE RECORDS SUMMARY | 2025-02-22 10:30 | XMS_ITS | Encounter Summary ---
Author Organization [employer] Address [address] 7t [place] [address] Care Team Providers Care Dry Cell Battery Assembler Name Role Phone Pedro Pulliam MD Primary Care Provide r Niko Salamanca MD Unavailable [phone] Encounter Details Date Type Department Care Team (Late st Contact Info) Description 05/31/2024 Telephone [facility] MEDICINE [address] [place], [place] [phone] Pedro Pulliam MD 230 [place], [place] [phone] Social History Tobacco Use Types Packs/Day Years [...] at 1:21 PM Name of Caller/Facility:[facility] Callback number: [phone] Reason for Call: INR 1.4 no missed [...] Description 04/17/2025 1:15 PM EDT Office Visit [facility] MEDICINE [address] [place] [address] Perdo Pulliam MD [address] [place] [address] documented as of this encounter Visit Diagnoses Not on filedocumented in this encounter Additional Health Concerns Assessment Noted Time PHQ-9 Depression Total Score: 1 09/23/20 23 1:21 PM EST documented as of this encounter Care Teams Dry Cell Battery Assembler Relationship Specialty Start Date End Date Pedro Pulliam MD [address] [place] [address] PCP - General Internal Medicine 09/10/14 Niko Salamanca MD [address] [place] [address] Drive [address] [place] [address] Nephrology 01/16/25 documented as of this encounter
--- OUTSIDE RECORDS SUMMARY | 2025-02-22 10:30 | XMS_ITS | Clinical Summary ---
Author Organization [facility] Address [address] [place] [address] Care Team Providers Care Museum Docent Name Role Phone Unavailable Primary Care Provider [...] Documents on File Type Date Recorded Patient Organizational Effectiveness Director Expl anation Health Care Decision (hx) 01/10/2020 AD PHILLIP DIRECTIVE
--- OUTSIDE RECORDS SUMMARY | 2025-02-22 10:30 | XMS_ITS | Encounter Summary ---
Author Organization [facility] Address [address] 7t [place] [address] Care Team Providers Care Special Delivery Clerk Name Role Phone Pedro Pulliam MD Primary Care Provide r Niko Salamanca MD Unavailable [phone] Reason for Visit * Reason Comments Med Refill Encounter Details Date Type Department Care Team (Late st Contact Info) Description 06/02/2024 Refill [facility] MEDICINE [address] [place], [place] [phone] Pedro Pulliam MD 230 [place], [place] [phone] Primary hypertension; Stage 3 chronic kidney disease, [...] Description 04/17/2025 1:15 PM EDT Office Visit [facility] MEDICINE [address] [place] [address] Pedro Pulliam MD [address] [place] [address] documented as of this encounter Visit Diagnoses Diagnosis Primary hypertension Unspecified essential hypertension Stage 3 chronic kidney disease, unspecified whether stage 3a or 3b CKD ([facility]) Nonrheumatic tricuspid valve regurgitation documented in this encounter Additional Health Concerns Assessment Noted Time PHQ-9 Depression Total Score: 1 09/23/20 23 1:21 PM EST documented as of this encounter Care Teams Special Delivery Clerk Relationship Specialty Start Date End Date Pedro Pulliam MD [address] [place] [address] PCP - General Internal Medicine 09/10/14 Niko Salamanca MD [address] [place] [address] Nephrology 01/16/25 documented as of this encounter
--- OUTSIDE RECORDS SUMMARY | 2025-02-22 10:30 | XMS_ITS | Encounter Summary ---
Author Organization [employer] [facility] Address [address] 7t [place] [address] Care Team Providers Care Shell Molding Roller Blast Operator Name Role Phone Pedro Pulliam MD Primary Care Provide r Niko Salamanca MD Unavailable [phone] Reason for Referral * Consultation (Routine) - Authorized Specialty Diagnoses / Procedures Referred By Contac t Referred To Contact Urology Diagnoses Epididymoorchitis Pedro Pulliam MD [address] [place] [address] Phone: tel: fax: [facility] Referral ID Status Reason Start Date Expiration Date Visits Requested Visits Authorized [id number] Authorized Specialty Services Required 02/20/2025 02/20/2026 1 1 Encounter Details Date Type Department Care Team (Latest Contact Info) Description 02/20/2025 Orders Only [facility] MEDICINE 230 [place], [place] [phone] Pedro Pulliam MD [address] [place], [place] [phone] Epididymoorchitis (Primary Dx) Social History Tobacco Use Types [...] Description 04/17/2025 1:15 PM EDT Office Visit [facility] MEDICINE [address] [place] [address] Pedro Pulliam MD [address] [place] [address] Scheduled Orders Name Type Priority Associated Diagnoses Orde r Schedule Urinalysis, Complete, with Reflex to Culture Lab Routine Epididymoorchitis Expected: 02/20/2025 (Approximate), Expires: 02/20/2026 Scheduled Referrals Name Type Priority Associated Diagnoses Orde r Schedule Referral to Urology Outpatient Referral Routine Epididymoorchitis Expected: 02/20/2025 (Approximate), Expires: 02/20/2026 documented as of this encounter Visit Diagnoses Diagnosis Epididymoorchitis- Primary Unspecified orchitis and epididymitis documented in this encounter Additional Health Concerns Assessment Noted Time PHQ-9 Depression Total Score: 0 10/17/20 24 1:50 PM EST documented as of this encounter Care Teams Shell Molding Roller Blast Operator Relationship Specialty Start Date End Date Pedro Pulliam MD [address] [place] [address] PCP - General Internal Medicine 09/10/14 Niko Salamanca MD [address] [place] [address] Drive [address] [place] [address] Nephrology 01/16/25 documented as of this encounter
[2025-02-22 11:48] LABS: Appearance Urine Turbid; Color Urine Dark Yellow; Glucose Urine UA Negative (Negative); Leukocyte Esterase Urine Trace (Negative); Nitrite Urine Negative (Negative); Specific Gravity - Urine 1.025 (1.005-1.025); UMIC TRIGGER UACC YES; Urine Blood Negative (Negative); Urine Ketones 15 mg/dL (Negative); Urine Protein 30 (1+) mg/dL (Neg-Trace)
[2025-02-22 12:09] LABS: Bacteria Urine None Seen (None Seen); Calcium Oxalate Crystals Urine Present; Granular Casts Urine Present; RBC Urine 0-2 /HPF (0-2); WBC Urine 0-5 /HPF (0-5); Waxy Casts Urine Present
== END 2025-02-22 09:19 | disposition home or self-care (01) ==
LOC: HO.HHCL 09:18
PROVIDERS: Visit Provider Internal Medicine
DX: N45.3 Epididymo-orchitis (principal)
CPT/HCPCS: 81001

== ENCOUNTER 2025-02-27 13:10 | Outpatient (REF) | payer OTHER, SELFPAY ==
[2025-02-27 13:58] LABS: Prothrombin Time 86.4 SEC (10.9-12.4)
[2025-02-27 14:02] LABS: INTERNATIONAL NORM RATIO 7.4 (0.9-1.1)
== END 2025-02-27 13:11 | disposition home or self-care (01) ==
LOC: HO.LAB 13:10
PROVIDERS: PCP Internal Medicine; Visit Provider Internal Medicine Medical Oncology
DX: Z79.01 Long term (current) use of anticoagulants (principal)
CPT/HCPCS: 36415; 85610; 99212

== ENCOUNTER 2025-02-27 13:10 | Outpatient (AMB) | payer OTHER, SELFPAY ==
[2025-02-27 13:19] LABS: Prothrombin Time Whole Bld POC 83.8 sec (11.1-13.5)
--- NOTE | 2025-02-27 13:25 | MHC.OFFVISCO ---
Intake Intake Visit Reasons: Anticoagulation Allergies No Known Allergies [No Known Allergies*] Allergy (Verified 02/27/25 13:12) Medication List - Last Reconciled 02/27/25 by Sandie Doran RN amlodipine 5 mg PO DAILY aspirin 81 mg PO DAILY atorvastatin 80 mg PO BEDTIME cholecalciferol (vitamin D3) 25 mcg PO DAILY dorzolamide-timolol 22.3-6.8 mg/mL 22.3 drps ophthalmic (eye) BID ferrous sulfate (FeroSul) 1 tab PO DAILY furosemide 40 mg PO DAILY iron sucrose (Venofer) 200 mg IV Q3D lisinopril 40 mg PO DAILY octreotide acetate (Mycapssa) 20 mg PO DAILY sulfamethoxazole-trimethoprim 800-160 mg (Bactrim DS) 1 tab PO BID travoprost 0.004% 1 drp ophthalmic (eye) BEDTIME warfarin 5 mg See Protocol PO DAILY Nursing Note Amb to ACS feeling well Medications and supplements reviewed, started on Bactrim DS on 02/22 for epididymitis warfarin dosing decrease over the weekend, sts urine is yellow, no bleeding and sts feeling better No other changes in health, diet, medications, or supplements, Denies any signs and symptoms of bleeding, bruising, or clotting. Bleeding, bruising, clotting discussed INR 7.0 anticoag meter- pt to lab for lab draw for INR verification LAB INR 7.4 Interpretter available- pt was aware of changes in warfarin however it sounds like he took usual dosing, did not have greens, sts he is not a big green eater pt instructed in Yoruba and greenlandic- warfarin dosing, green veggie food choices, bleed risk, ED for any bleeding or falls reviewed with pt usual INR vs very high INR and importance of no warfarin today or tomorrow and follow up visit Dose: hold warfarin tonight and tomorrow night recheck INR (2 days) eat a good green today and tomorrow (sts he will have broccolli and avacado, discussed broccolli has more Vitamin K to bring down INR) F/U INR: 2 days Patient verbalizes understanding of instructions given, Teod[facility] interpretter available fro interp after pt had lab draw [facility] critical care line called and reported INR results, warfarin hold, recheck, and bleed risk precautions to Nallely GOLDEN for Dr Snow Anti-Coag Initial Assessment Social Hx Patient Tobacco Use Status: Former Tobacco user Tobacco use type: Cigarette alcohol intake: former Alcohol intake frequency: does not drink Coding Level of Care Code Est Patient Level 2 Diagnoses Current use of anticoagulant therapy Z79.01 Time Spent (min) 30 Assessment & Plan Assessment & Plan (1) Current use of anticoagulant therapy: Comment: warfarin-Otto Pfeiffer- need to confirm ok to stop 5 days prior to colonoscopy-unable to send note through expanse Patient aware this must be confirmed, there were no major barriers to understanding identified Code(s): Z79.01 - intermediate (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 Orders: Orders Prothrombin Time INR Today Z79.01 - intermediate (current) use of anticoagulants
--- OUTSIDE RECORDS SUMMARY | 2025-02-27 15:36 | XMS_ITS | Clinical Summary ---
Author Organization [employer] Address [address] [place] [address] Care Team Providers Care [employer] Science Teacher Name Role Phone Pedro Pulliam MD Primary Care Provide r Niko Salamanca MD Unavailable [phone] Allergies No known active allergies Medications [...] pt currently undergoing PT with good results. [facility] care 09/23/2023 Assessment & Plan (10/17/2024 1:55 [...] showed diverticulosis only by Dr connors at [facility] Mixed hyperlipidemia 08/13/2015 09/15/2023 Assessment & Plan [...] the past by his vascular surgeon at [facility] (Dr Lind) whose recommendation was conservative treatment, he saw NO role for any type of surgical intervention. He recommended to repeat the scan in 1 year and continue to take Asa 81 mg po daily. Pt was last seen by his circuits engineer at [facility] 09/14/2023 recommended repeat US and ECHO and [...] and lasix 20 mg daily prescribed by Institutional Research Director. I had recently lowered his Lasix due [...] and lasix 20 mg daily prescribed by Institutional Research Director. I had recently lowered his Lasix due [...] Am and 20 mg PM prescribed by Institutional Research Director. I had recently lowered his Lasix due [...] Am and 20 mg PM prescribed by Institutional Research Director. Pt developed some bilateral ankle edema due [...] Furosemide 20 mg po BID prescribed by Institutional Research Director. Pt developed some bilateral ankle edema due [...] Furosemide 20 mg po BID prescribed by Institutional Research Director. Pt developed some bilateral ankle edema due [...] clinical impression. Plan: Breast center referral at [facility] Assessment & Plan (02/01/2024 1:36 PM [...] Encounters Date Type Department Care Team Description 02/27/2025 Telephone [facility] [address] [place] [phone] Pedro Pulliam MD Critical lab 02/27/2025 Orders Only GENERIC EXTERNAL DATA DEPARTMENT Provider, Generic External Data 02/21/[address] [address] Justa Christianson RN Results; Lab Orders; Referral 02/20/2025 Orders Only [facility] [address] [place] [address] [place] [address] Pedro Pulliam MD Epididymoorchitis (Primary Dx) 02/12/2025 Telephone [facility] [place] [address] Pedro Pulliam MD Paperwork/Forms 02/11/2025 Refill [facility] [place] [address] Pedro Pulliam MD Vitamin D deficiency 02/07/2025 Orders Only GENERIC EXTERNAL DATA DEPARTMENT Provider, Generic External Data 01/16/2025 Telephone [facility] [place] [address] Justa Christianson RN Interoffice Communication 01/15/2025 Telephone [facility] [place] [address] Pedro Pulliam MD Referral 01/11/2025 1:15 PM EST Office Visit [facility] [place] [address] Pedro Pulliam MD Primary hypertension (Primary Dx); KARINA (obstructive sleep apnea); Longstanding persistent atrial fibrillation (CMS/HCC); Gynecomastia; Stage 3b chronic kidney disease (CMS/HCC); Iron deficiency; Mixed hyperlipidemia 01/11/2025 Travel 01/10/2025 Orders Only GENERIC EXTERNAL DATA DEPARTMENT Provider, Generic External Data 01/02/2025 Patient Outreach [facility] [place] [address] Pedro Pulliam MD Pre-visit Planning (SDOH Screening negative and Tobacco screening negative) 12/28/2024 Telephone [facility] [place] [address] Pedro Pulliam MD Chart Prep 12/20/2024 Orders [...] Description 04/17/2025 1:15 PM EDT Office Visit [facility] [address] [place] [address] Pedro Pulliam MD [address] [place] [address] Health Maintenance Due Date Last Done Comments Zoster Vaccines (3 of 3) 03/04/2020 01/08/2020, 02/07 RSV Patients and Patients Aged 60 years or older (1 - 1-dose 75+ series) 2021 COVID-19 Vaccine ( season) 2024 11/11/2021, 03/05/2021, 02/05/2021 Mammogram 04/11/2025 04/11/2024, 04/11/2024 Alcohol/Substance Use Screening 10/17/2025 10/17/2024 Depression Screening 10/17/2025 10/17/2024, 10/17/20 SDOH Screening 01/02/2026 01/02/2025 Tobacco Screening 01/11/2026 [...] Name Priority Date/Time Associated Diagnosis Comments PROTHROMBIN TIME-INR Routine 02/27/2025 1:31 PM EDT PROTHROMBIN TIME WHOLE BLD POC Routine 02/27/2025 1:16 PM EDT ~PT, ~INR - ANTI COAG CLINIC Routine 02/27/2025 1:16 PM EDT URINALYSIS, COMPLETE, WITH REFLEX TO CULTURE Routine 02/22/2025 9:20 AM EDT Epididymoorchitis US SCROTUM Routine 02/19/2025 3:57 PM EDT [...] Relevant to Health Maintenance Results * (ABNORMAL) Prothrombin Time-INR (02/27/2025 1:31 PM EDT) Prothrombin Time 86.4(H) 10.9 - 12.4 SEC [facility] INTERNATIONAL NORM RATIO 7.4(HH) 0.9 - 1.1 [facility] Comment:RESULTS OF INR BURGOS D TO AND READ BACK BY PATRICIA 02/27/25 AT 1402 BY LAMIN.INTERNATIONAL NORMALIZED RATIO (INR) REFERENCE RANGES Reference RangeFor patients not on anticoagulant therapy: 0.9 - 1.1INR ranges for oral anticoagulanttherapy:For prevention and treatment of venous thrombosis and pulmonary embolism: 2.0 - 3.0For acute myocardial infarction with aspirin therapy: 2.0 - 3.0For acute myocardial infarction without aspirin therapy: 3.0 - 4.0For patients with mechanical prosthetic heart valves: 2.5 - 3.5 02/27/2025 1:31 PM EDT 02/27/2025 1:31 PM EDT us Generic External Data Provider LAB BLOOD ORDERAB LES Final Result [facility] [address] [place] [phone] * (ABNORMAL) PROTHROMBIN TIME WHOLE BLD POC (02/27/2025 1:16 PM EDT) Only the most recent of5 resultswithin the time period is included. Protime 83.8(H) 11.1 - 13.5 sec [facility] 02/27/2025 1:16 PM EDT 02/27/2025 1:18 PM EDT Generic External Data Provider LAB BLOOD ORDERAB LES Final Result Performing Organization Address City/[facility]/ZIP Co de Phone Number [facility] [address] [place] [phone] * (ABNORMAL) ~PT, ~INR - ANTI COAG CLINIC (02/27/2025 1:16 PM EDT) Only the most recent of5 resultswithin the time period is included. Pathologist [facility] Prothrombin Time INR 7.0(HH) 0.9 - 1.1 [facility] Comment:METER #: [id number] ctor NotifiedINTERNATIONAL NORMALIZED RATIO (INR) REFERENCE RANGES Reference RangeFor patients not on anticoagulant therapy: 0.9 - 1.1INR ranges for oral anticoagulanttherapy:For prevention and treatment of venous thrombosis and pulmonary embolism: 2.0 - 3.0For acute myocardial infarction with aspirin therapy: 2.0 - 3.0For acute myocardial infarction without aspirin therapy: 3.0 - 4.0For patients with mechanical prosthetic heart valves: 2.5 - 3.5 02/27/2025 1:16 PM EDT 02/27/2025 1:18 PM EDT [employer] External Data Provider LAB BLOOD ORDERAB LES Final Result Performing Organization Address [facility]/ZIP Co de Phone Number [facility] [address] [place] [address] [phone] * (ABNORMAL) Urinalysis, Complete, with Reflex to Culture (02/22/2025 9:20 AM EDT) Color Urine Dark Yellow [facility] Appearance Urine Turbid [facility] PH 5.0 5.0 - 9.0 [facility] Glucose Urine UA Negative Negative mg/dL [facility] Urine Blood Negative Negative [facility] Specific [place] - Urine 1.025 1.005 - 1.025 [facility] Urine Protein 30 (1+)(A) Neg-Trace mg/dL [facility] Urine Ketones 15 Negative mg/dL [facility] Nitrite Urine Negative Negative [facility] Leukocyte Esterase Urine Trace(A) Negative [facility] RBC Urine 0-2 0 - 2 /HPF [facility] Urine WBC 0-5 0 - 5 /HPF [facility] Urine Squamous Epithelial Cell 3-5 0 - 2 /HPF [facility] CALCIUM OXALATE CRYSTAL, UR Present [facility] Urine Bacteria None Seen None Seen [facility] Hyaline Casts, Urine 3-5 0 - 2 /LPF [facility] GRANULAR CASTS (#/HPF) IN URINE Present [facility] Waxy Casts Present [facility] Urine 02/22/2025 9:20 AM EDT 02/22/2025 11:25 AM EDT Narrative [facility] - 02/22/2025 12:09 PM EDT Urine, Clean Catch us Pedro Julian MD LAB URINE ORDERABLES Final Result [facility] [address] [place] [address] [phone] * US Scrotum (02/19/2025 3:57 PM EDT) Anatomical Region Laterality Modality Body Ultrasound 02/19/2025 3:57 PM EDT Narrative 02/19/2025 4:56 PM EDT ? [facility] ?[address] ?[place] [address] ? Ultrasound Report ? Signed ? Patient: Pablo Quinteros,Jamie ?MR#: ?? [id number] ? : 1945 ?Acct:[id number] ? Age/Sex: 79 / M ?ADM Date: 04/14/25 ? Loc: HO.US ? Attending Dr: Niko Salamanca MD ? Ordering Physician: Pedro Webber MD ?? Date of Service: 02/19/25 ?? Procedure(s): US scrotum ?? Accession Number(s): [id number] ? cc: Pedro Webber MD ? EXAMINATION: [...] Bradley MD in OV> ?02/19/25 1653 ? DD/DT: 02/19/ 1557 ? TD/TT: 02/19/ 1613 ? Cargo Trimmer: ? Procedure Note Donotuseinterpreter, Image - 02/19/[address] [address] Ultrasound Report Signed Patient: Rik Carpio#: [id number] : 1945Acct:[id number] Age/Sex: 79 / MADM Date: 02/19/25 Loc: HO.US Attending Dr: Niko Salamanca MD Ordering Physician: Pedro Webber MD Date of Service: 02/19/25 Procedure(s): US scrotum Accession Number(s): [id number] cc: Pedro Webber MD EXAMINATION: US SCROTUM [...] 02/19/25 1653 DD/ 1557 TD/TT: 02/19/25 1613 Cargo Trimmer: us Pedro Julian MD IMG US PROCEDURES Ortiz david Result - Final * US RENAL BI (02/19/2025 3:38 PM EDT) Anatomical Region Laterality Modality Abdomen Ultrasound 02/19/2025 3:38 PM EDT Narrative 02/19/2025 4:52 PM EDT ? [facility] ?[address] ?[place] [address] ? Ultrasound Report ? Signed ? Patient: Jamie Carpio ?MR#: ?? [id number] ? : 1945 ?Acct:[id number] ? Age/Sex: 79 / M ?ADM Date: 02/19/25 ? Loc: HO.US ? Attending Dr: Niko Salamanca MD ? Ordering Physician: Niko Salamanca MD ?? Date of Service: 02/19/25 ?? Procedure(s): US renal BI ?? Accession Number(s): [id number] ? cc: Niko Salamanca MD; Pedro Webber [...] DD/ 1538 ? TD/TT: 02/19/25 1548 ? Cargo Trimmer: MSM ? Procedure Note Donamarilyster, Image - 02/19/2025 [place] [address] Ultrasound Report Signed Patient: Rik Carpio#: [id number] : 6Acct:[id number] Age/Sex: 79 / MADM Date: 02/19/25 Loc: HO.US Attending Dr: Niko Salamanca MD Ordering Physician: Niko Salamanca MD Date of Service: 02/19/25 Procedure(s): US renal BI Accession Number(s): [id number] cc: Niko Salamanca MD; Pedro Webber MD [...] 02/19/25 1650 DD/ 1538 TD/TT: 02/19/25 1548 Cargo Trimmer: [facility] us [facility] External Provider IMG US PROCEDURES Edited Result - Final * TSH with Reflex to Free T4 (01/16/2025 9:13 AM EDT) TSH reflex Free T4 1.80 0.32 - 4.0 uIU/mL [facility] Blood Venous blood specimen / Unknown 01/16/2025 9:13 AM EDT 01/16/2025 11:29 AM EDT us Pedro Julian MD LAB BLOOD ORDERABLES Final Result [facility] [address] [place] [phone] * hCG, Total, Quantitative (01/16/2025 9:13 AM EDT) HCG Quantitative <2 mIU/mL [facility] Blood Venous blood specimen / Unknown 01/16/2025 9:13 AM EDT 01/16/2025 11:29 AM EDT Pedro Julian MD LAB BLOOD ORDERABLES Final Result Performing Organization Address [facility] Co de Phone Number [facility] [address] [place] [address] [phone] * (ABNORMAL) Lipid Panel, Standard (01/16/2025 9:13 AM EDT) Triglycerides 40 <150 mg/dL [facility] Comment:Desirable Triglyceri de: less than 150 mg/dLBorderline High Triglyceride 150-199 mg/dLHigh Triglyceride: 200-499 mg/dLVery High Triglyceride: greater than or equal to 5OO mg/dL Cholesterol 93 <200 mg/dL [facility] Comment:Desirable Cholestero l: less than 200 mg/dLBorderline High Cholesterol: 200-239 mg/dLHigh Cholesterol: greater than 239 mg/dL LDL Cholesterol Calculated 58 <100 mg/dL [facility] Comment:Desirable LDL: less than [...] BLOOD ORDERABLES Final Result Performing Organization Address City/[facility]/ZIP Co de Phone Number [facility] [address] [place] [phone] * (ABNORMAL) Basic Metabolic Panel (01/16/2025 9:13 AM EDT) Sodium 141 135 - 145 mmol/L [facility] Potassium 4.5 3.3 - 5.1 mmol/L [facility] Chloride 111(H) 96 - 108 mmol/L [facility] Carbon Dioxide 25 22 - 29 mmol/L [facility] Anion Gap 10(L) 12 - 20 [facility] Urea Nitrogen (BUN) 28(H) 9 - 16 mg/dL [facility] Creatinine, Serum 1.90(H) 0.5 - 1.4 mg/dL [facility] Estimated Glomerular Filt Rate 34 [facility] Comment:Chronic Kidney Disea se: Estimated GFR < 60 mL/min/1.07x4Exvfte Kidney Disease: Estimated GFR < 15 mL/min/1.73m2 Glucose 93 60 - 115 mg/dL [facility] Calcium 8.7 8.4 - 10.2 mg/dL [facility] Blood Venous blood specimen / Unknown 01/16/2025 9:13 AM EDT 01/16/2025 11:29 AM EDT Pedro Julian MD LAB BLOOD ORDERABLES Final Result Performing Organization Address City/[facility]/ZIP Co de Phone Number [facility] [address] [place] [phone] * Prolactin (01/16/2025 8:13 AM EDT) Prolactin 9.2 2.0 - 18.0 ng/mL [facility] Comment:THIS TEST WAS PERFOR MED AT:[employer] [place] [id number] SEGURA MD Blood Venous blood specimen / Unknown 01/16/2025 8:13 AM EDT 01/16/2025 11:29 AM EDT Pedro Julian MD LAB BLOOD ORDERABLES Final Result Performing Organization Address City/[facility]/ZIP Co de Phone Number [facility] [address] [place] [phone] * DHEA Sulfate (01/16/2025 8:13 AM EDT) Pathologist [facility] DHEA Sulfate 44 3 - 225 mcg/dL [facility] Comment:THIS TEST WAS PERFOR MED AT:[facility] [address] [address]TFOADMADAI SEGURA MD Blood Venous blood specimen / Unknown 01/16/2025 8:13 AM EDT 01/16/2025 11:29 AM EDT ePdro Julian MD LAB BLOOD ORDERABLES Final Result Performing Organization Address [facility]/ZIP Co de Phone Number [facility] [address] [place] [phone] * (ABNORMAL) Estradiol (01/16/2025 8:13 AM EDT) [facility] Estradiol Ultra Sensitive 37(A) < OR = 29 pg/mL [facility] Comment:This test was develo ped and its analytical performancecharacteristics have been determined by [employer].It has not been cleared or approved by the FDA. This assayhas been validated pursuant to the CLIA regulations and isused for clinical purposes.THIS TEST WAS PERFORMED AT:[employer]/[facility] [id number] [place] [address]SBSWPPHILLIP RODRIGUEZ MD,PHD,VIPUL Blood Venous blood specimen / Unknown 01/16/2025 8:13 AM EDT 01/16/2025 11:29 AM EDT Pedro Julian MD LAB BLOOD ORDERABLES Final Result Performing Organization Address [facility]/ZIP Co de Phone Number [facility] [address] [place] [phone] * Testosterone, Free (Dialysis) And Total, MS (01/16/2025 8:13 AM EDT) [facility] Testosterone, Total 498 250 - 1100 ng/dL [facility] Comment:Men with clinically significant hypogonadalsymptoms and testosterone values repeatedly inthe range of the 200-300 ng/dL or less, maybenefit from testosterone treatment afteradequate risk and benefits counseling.For additional information, please refer tohttp://education.[employer]/faq/LvqcuDyfwemzgudjkZGZUXBLDH176(This link is being provided for informational/educational purposes only.)This test was developed and its analytical performancecharacteristics have been determined by [facility] [place]. It hasnot been cleared or approved by the U.S. Food and DrugAdministration. This assay has been validated pursuantto the CLIA regulations and is used for clinicalpurposes. Testosterone, Free 60.8 30.0 - 135.0 pg/mL [facility] Comment:This test was develo ped and its analytical performancecharacteristics have been determined by [facility] [place]. It hasnot been cleared or approved by the U.S. Food and DrugAdministration. This assay has been validated pursuantto the CLIA regulations and is used for clinicalpurposes.THIS TEST WAS PERFORMED AT:[id number] [place] [address]ZSWDMJARAMSES CULLEN MD,PHD Blood Venous blood specimen / Unknown 01/16/2025 8:13 AM EDT 01/16/2025 11:29 AM EDT us Pedro Julian MD LAB BLOOD ORDERABLES Final Result [facility] [address] [place], [place] [phone] * (ABNORMAL) LH (01/16/2025 8:13 AM EDT) Lutenizing Hormone 37.7(A) 1.6 - 15.2 mIU/mL [facility] Comment:THIS TEST WAS PERFOR MED AT:[facility] [address] [address]QJEMXMADAI SEGURA MD Blood Venous blood specimen / Unknown 01/16/2025 8:13 AM EDT 01/16/2025 11:29 AM EDT Pedro Julian MD LAB BLOOD ORDERABLES Final Result Performing Organization Address [facility] Co de Phone Number [facility] [address] [place] [address] [phone] * (ABNORMAL) FSH (01/16/2025 8:13 AM EDT) Follicle Stimulating Hormone 49.9(A) 1.4 - 12.8 mIU/mL [facility] Comment:THIS TEST WAS PERFOR MED AT:[employer] [place] [id number] SEGURA MD Blood Venous blood specimen / Unknown 01/16/2025 8:13 AM EDT 01/16/2025 11:29 AM EDT Pedro Julian MD LAB BLOOD ORDERABLES Final Result Performing Organization Address [facility] Co de Phone Number [facility] [address] [place] [address] [phone] * BI Mammogram Diagnostic Tomosynthesis Bilateral (04/11/2024 3:15 PM EDT) Anatomical Region Laterality Modality Breast Bilateral Mammography 04/11/2024 3:15 PM EDT Narrative 04/11/2024 4:59 PM EDT ? [facility] ? [address] ?[place] [address] ? Mammography Report ? Signed ? Patient: Pablo Quinteros,Jamie ?MR#: ?? [id number] ? : 1945 ?Acct:[id number] ? Age/Sex: 79 / M ?ADM Date: 06/04/24 ? Loc: HO.MAMMO ? Attending Dr: Pedro Webber MD ? Ordering Physician: Pedro Webber MD ?Resu ?? lts: 2Benign Findings ? Date of Service: 04/11/24 ?Follow Up: 1 Year From Orig ?? inal Mammogram ? Procedure(s): MM tomosynthesis diagnostic BI ?? Accession Number(s): [id number] ? cc: Pedro Webber MD ? EXAMINATION: [...] MD in OV> ?04/11/24 1654 ? DD/ 1515 ? TD/TT: ? Cargo Trimmer: ? Procedure Note Fran, Yazan - 04/11/2024 [facility] [address] [place] [address] Mammography Report Signed Patient: Rik Carpio#: [id number] : 1945Acct:[id number] Age/Sex: 79 / MADM Date: 04/11/24 Loc: HO.MAMMO Attending Dr: Pedro Webber MD Ordering Physician: Pedro Webber MDResu lts: 2Benign Findings Date of Service: 04/11/24Follow Up: 1 Year From Orig ina Mammogram Procedure(s): MM tomosynthesis diagnostic BI Accession Number(s): [id number] cc: Pedro Webber MD EXAMINATION: MM DIAGNOSTIC [...] in OV> 04/11/24 1654 DD/ 1515 TD/TT: Cargo Trimmer: Pedro Julian MD IMG BI PROCEDURES Fin al Result * HEPATITIS C AB W/REFL TO HCV RNA, QN, PCR (12/24/2021 8:24 AM EST) HEPATITIS C ANTIBODY NON-REACT SIL NON-REACT SIL [facility] INDEX 0.01 <1.00 [facility] Comment: ?? HCV antibody was non-reactive. There is no laboratory ?? evidence of HCV infection. ?? In most cases, no further action is required. However, if recent HCV exposure is suspected, a test for HCV RNA (test code 58531) is suggested. ?? For additional information please refer to http://education.[employer]/faq/WMT91x2 (This link is being provided for informational/ educational purposes only.) ?? 12/24/2021 8:24 AM EST us Pedro Julian MD HISTORICAL/NON ORDERA BLE LABS Final Result [facility] [address] from Last 3 Months or Most Recently Relevant to Health Maintenance Insurance [facility] Care Teams Middle [employer] Science Teacher Relationship Specialty Start Date End Date Pedro Pulliam MD [address] [place] [phone] PCP - General Internal Medicine 09/10/14 Niko Salamanca MD [address] [place] [address] Drive [address] [place] [address] Nephrology 01/16/25
--- OUTSIDE RECORDS SUMMARY | 2025-02-27 15:36 | XMS_ITS | Encounter Summary ---
Author Organization [facility] Address [address] 7t [place] [address] Care Team Providers Care Sewage Plant Operator Name Role Phone Pedro Pulliam MD Primary Care Provide r Niko Salamanca MD Unavailable [phone] Encounter Details Date Type Department Care Team (Late st Contact Info) Description 02/25/2023 Orders Only [facility] [address] [place] [phone] Shanita Pfeiffer LPN Social History Tobacco Use [...] Description 04/17/2025 1:15 PM EDT Office Visit [facility] [address] [place] [phone] Pedro Pulliam MD [address] [place] [address] documented as of this encounter Visit Diagnoses Not on filedocumented in this encounter Care Teams Sewage Plant Operator Relationship Specialty Start Date End Date Pedro Pulliam MD [address] [place] [address] [phone] PCP - General Internal Medicine 09/10/14 Niko Salamanca MD [address] [place] [phone] Nephrology 01/16/25 documented as of this encounter
--- OUTSIDE RECORDS SUMMARY | 2025-02-27 15:36 | XMS_ITS | Encounter Summary ---
Author Organization [employer] [facility] Address [address] 7[address] [place] [address] Care Team Providers Care Professor Of Family Medicine Name Role Phone Pedro Pulliam MD Primary Care Provide r Niko Salamanca MD Unavailable [phone] Reason for Visit * Reason Onset Date Comments Med Refill 2023 Encounter Details Date Type Department Care Team (Late st Contact Info) Description 2023 Refill [facility] [address] [place] [address] Pedro Pulliam MD [address] [place] [address] Atrial fibrillation, unspecified type (CMS/HCC) (Primary Dx) [...] 04/17/2025 1:15 PM EDT Office Visit [facility] [address] [place] [address] Pedro Pulliam MD [address] [place] [address] documented as of this encounter Visit Diagnoses Diagnosis Atrial fibrillation, unspecified type (CMS/HCC)- Primary documented in this encounter Care Teams Professor Of Family Medicine Relationship Specialty Start Date End Date Pedro Pulliam MD [address] [place] [address] PCP - General Internal Medicine 09/10/14 Niko Salamanca MD [address] [place] [address] Drive [address] [place] [address] Nephrology 01/16/25 documented as of this encounter
--- OUTSIDE RECORDS SUMMARY | 2025-02-27 15:36 | XMS_ITS | Encounter Summary ---
Author Organization [employer] [facility] Address [address] [facility] 7t [place] [address] Care Team Providers Care It Administrative Assistant Name Role Phone Pedro Pulliam MD Primary Care Provide r Niko Salamanca MD Unavailable [phone] Encounter Details Date Type Department Care Team (Late st Contact Info) Description 05/31/2023 Orders Only [facility] [address] [place] [address] Shanita Pfeiffer LPN Social History Tobacco Use [...] Description 04/17/2025 1:15 PM EDT Office Visit [facility] [address] [place] [address] Pedro Pulliam MD [address] [place] [address] documented as of this encounter Visit Diagnoses Not on filedocumented in this encounter Care Teams It Administrative Assistant Relationship Specialty Start Date End Date Pedro Pulliam MD [address] [place] [address] [phone] PCP - General Internal Medicine 09/10/14 Niko Salamanca MD [address] [place] [address] Nephrology 01/16/25 documented as of this encounter
--- OUTSIDE RECORDS SUMMARY | 2025-02-27 15:36 | XMS_ITS | Encounter Summary ---
Author Organization [employer] Address [address] [facility] [address] 7t [place] [address] Care Team Providers Care Airport Ramp Supervisor Name Role Phone Pedro Pulliam MD Primary Care Provide r Niko Salamanca MD Unavailable [phone] Reason for Visit * Reason Onset Date Comments OV 03/1602/17/2024 Encounter Details Date Type Department Care Team (Late st Contact Info) Description 02/17/2024 Telephone [facility] [address] [place], [place] [phone] Perdo Pulliam MD 230 [place], [place] [phone] OV 03/16 Social History Tobacco Use Types [...] any questions you can contact pt at [phone]. documented in this encounter Plan of Treatment Upcoming Encounters Date Type Department Care Team (Late st Contact Info) Description 04/17/2025 1:15 PM EDT Office Visit [facility] [address] [place] [address] Pedro Pulliam MD [address] [place] [address] documented as of this encounter Visit Diagnoses Not on filedocumented in this encounter Additional Health Concerns Assessment Noted Time PHQ-9 Depression Total Score: 1 09/23/20 23 1:21 PM EST documented as of this encounter Care Teams Airport Ramp Supervisor Relationship Specialty Start Date End Date Pedro Pulliam MD [address] [place] [address] PCP - General Internal Medicine 09/10/14 Niko Salamanca MD [address] [place] [address] [address] [place] [address] Nephrology 01/16/25 documented as of this encounter
--- OUTSIDE RECORDS SUMMARY | 2025-02-27 15:36 | XMS_ITS | Encounter Summary ---
Author Organization [employer] [facility] Address [address] [address] 7t [place] [address] Care Team Providers Care Panel Raiser Operator Name Role Phone Pedro Pulliam MD Primary Care Provide r Niko Slaamanca MD Unavailable [phone] Reason for Visit * Reason Comments Med Refill Encounter Details Date Type Department Care Team (Late st Contact Info) Description 06/02/2024 Refill [facility] 230 [place], [place] [phone] Pedro Pulliam MD 230 [place], [place] [phone] Primary hypertension; Stage 3 chronic kidney disease, [...] Office Visit [facility] 230 [place] [address] Pedro Pulliam MD [address] [place] [address] documented as of this encounter Visit Diagnoses Diagnosis Primary hypertension Unspecified essential hypertension Stage 3 chronic kidney disease, unspecified whether stage 3a or 3b CKD ([facility]/HCC) Nonrheumatic tricuspid valve regurgitation documented in this encounter Additional Health Concerns Assessment Noted Time PHQ-9 Depression Total Score: 1 09/23/20 23 1:21 PM EST documented as of this encounter Care Teams Panel Raiser Operator Relationship Specialty Start Date End Date Pedro Pulliam MD 230 [place] [address] PCP - General Internal Medicine 09/10/14 Niko Salamanca MD [address] [place] [address] Nephrology 01/16/25 documented as of this encounter
--- OUTSIDE RECORDS SUMMARY | 2025-02-27 15:36 | XMS_ITS | Encounter Summary ---
Author Organization [employer] Address [address] [facility] [address] 7t [place] [address] Care Team Providers Care Gas Cutter Name Role Phone Pedro Pulliam MD Primary Care Provide r Niko Salamanca MD Unavailable [phone] Reason for Visit * Reason Onset Date Comments Paperwork/Forms 02/12/2025 Encounter Details Date Type Department Care Team (Late st Contact Info) Description 02/12/2025 Telephone [facility] 230 [place], [place] [phone] Pedro Pulliam MD 230 [place], [place] [phone] Paperwork/Forms Social History Tobacco Use Types Packs/Day Years [...] Telephone Encounter - Justa Christianson RN - 02/22/2025 3:57 PM EDT Faxed signed form back as below * Telephone Encounter - Emily Solorio RN - 02/12/2025 1:21 PM EDT Received anticoagulation service renewal form from [facility]. Placed on PCP desk for signature. documented in this encounter Plan of Treatment Upcoming Encounters Date Type Department Care Team (Late st Contact Info) Description 04/17/2025 1:15 PM EDT Office Visit [facility] [address] [place], [place] [phone] Pedro Pulliam MD [address] [place] [address] documented as of this encounter Visit Diagnoses Not on filedocumented in this encounter Additional Health Concerns Assessment Noted Time PHQ-9 Depression Total Score: 0 10/17/20 24 1:50 PM EST documented as of this encounter Care Teams Gas Cutter Relationship Specialty Start Date End Date Pedro Pulliam MD 230 [place] [address] PCP - General Internal Medicine 09/10/14 Niko Salamanca MD [address] [place] [address] Drive [address] [place] [address] Nephrology 01/16/25 documented as of this encounter
--- OUTSIDE RECORDS SUMMARY | 2025-02-27 15:36 | XMS_ITS | Encounter Summary ---
Author Organization [employer] Address [address] [facility] [address] [address] 7t [place] [address] Care Team Providers Care Disassembler Product Name Role Phone Pedro Pulliam MD Primary Care Provide r Niko Salamanca MD Unavailable [phone] Encounter Details Date Type Department Care Team (Late st Contact Info) Description 05/31/2024 Telephone [facility] 230 [place], [place] [phone] Pedro Pulliam MD 230 [place], [place] [phone] Social History Tobacco Use Types Packs/Day Years [...] line 05/31/24 at 1:21 PM Name of Caller/Facility:[facility] Callback number: [phone] Reason for Call: INR 1.4 no missed [...] 1:15 PM EDT Office Visit [facility] [address] [place] [address] Pedro Pulliam MD 230 [place] [address] documented as of this encounter Visit Diagnoses Not on filedocumented in this encounter Additional Health Concerns Assessment Noted Time PHQ-9 Depression Total Score: 1 09/23/20 23 1:21 PM EST documented as of this encounter Care Teams Disassembler Product Relationship Specialty Start Date End Date Pedro Pulliam MD [address] [place] [address] PCP - General Internal Medicine 09/10/14 Niko Salamanca MD [address] [place] [address] Drive [address] [place] [address] Nephrology 01/16/25 documented as of this encounter
--- OUTSIDE RECORDS SUMMARY | 2025-02-27 15:36 | XMS_ITS | Encounter Summary ---
Author Organization [employer] Address [address] [facility] [address] 7t [place] [address] Care Team Providers Care Provider Relations Rep Name Role Phone Pedro Pulliam MD Primary Care Provide r Niko Salamanca MD Unavailable [phone] Reason for Visit * Reason Onset Date Comments follow up needed 11/20/2024 Encounter Details Date Type Department Care Team ([facility] st Contact Info) Description 11/20/[address] [facility] MED[facility]INE [address] [place], [place] [phone] Pedro Pulliam MD [address] [place], [place] [phone] follow up needed Social History Tobacco Use [...] 12:47 PM EST Tc from Randa with [facility] plastic surgery reporting that they saw pt [...] 04/17/2025 1:15 [address] EDT Office [address] [facility] [address] [place] [address] Pedro Pulliam MD [address] [place] [address] documented as of this encounter Visit Diagnoses Not on filedocumented in this encounter Additional Health Concerns Assessment Noted Time PHQ-9 Depression Total Score: 0 10/17/20 24 1:50 PM EST documented as of this encounter Care Teams Provider Relations Rep Relationship Specialty Start Date End Date Pedro Pulliam MD 230 [place] [address] PCP - General Internal Medicine 09/10/14 Niko Salamanca MD [address] [place] [address] Drive [address] [place] [address] Nephrology 01/16/25 documented as of this encounter
--- OUTSIDE RECORDS SUMMARY | 2025-02-27 15:37 | XMS_ITS | Encounter Summary ---
Author Organization [employer] Address [address] 7t [place] [address] Care Team Providers Care Flanger Name Role Phone Pedro Pulliam MD Primary Care Provide r Niko Salamanca MD Unavailable [phone] Reason for Visit * Reason Onset Date Comments Results 02/21/2025 Lab Orders 02/21/2025 Referral 02/21/2025 Encounter Details Date Type Department Care Team (Late st Contact Info) Description 02/21/2025 Telephone [facility] 230 [place], [place] [phone] Justa Christianson, [place] 230 [place] [address] Results; Lab Orders; Referral Social History Tobacco [...] Telephone Encounter - Justa Christianson RN - 02/23/2025 8:44 AM EDT Checked with pharmacy and received lab results, pt followed instructions from yesterday. * Telephone Encounter - Justa Christianson RN - 02/21/2025 9:58 AM EDT Telephone call placed to pt utilizing [employer] #[id number] regarding below results and POC. Informed of [...] for that call. Advised to come to [facility] to give urine and pear picker Abx. Pt reports that STEEL ROLLER comes to see him tomorrow morning, he [...] Abx, let us know or come to [facility]. Pt to call if he needs anything or has concerns or come to [facility] and request to speak with me. Answered all of pt's questions. Pt verbalized understanding and denied having any further questions or concerns at this time. Telephone call placed to [facility]. Spoke with pt's coumadin [...] 1:15 PM EDT Office Visit [facility] 230 [place] [address] Pedro Pulliam MD 230 [place], [place] [phone] documented as of this encounter Visit Diagnoses Not on filedocumented in this encounter Additional Health Concerns Assessment Noted Time PHQ-9 Depression Total Score: 0 10/17/20 24 1:50 PM EST documented as of this encounter Care Teams Flanger Relationship Specialty Start Date End Date Pedro Pulliam MD [address] [place] [address] PCP - General Internal Medicine 09/10/14 Niko Salamanca MD [address] [place] [address] Drive [address] [place] [address] Nephrology 01/16/25 documented as of this encounter
--- OUTSIDE RECORDS SUMMARY | 2025-02-27 15:37 | XMS_ITS | Encounter Summary ---
Author Organization [employer] [facility] Address [address] [facility] 7t [place] [address] Care Team Providers Care Chocolate Finisher Operator Name Role Phone Pedro Pulliam MD Primary Care Provide r Niko Salamanca MD Unavailable [phone] Encounter Details Date Type Department Care Team (Late st Contact Info) Description 01/06/2023 Orders Only [facility] MED & PEDS [address] [place] [address] Shira Castano LPN Social History Tobacco Use [...] 1:15 PM EDT Office Visit [facility] MEDICINE 230 [place] [address] Pedro Pulliam MD 230 [place], [place] [phone] documented as of this encounter Visit Diagnoses Not on filedocumented in this encounter Care Teams Chocolate Finisher Operator Relationship Specialty Start Date End Date Pedro Pulliam MD 230 [place], [place] [phone] PCP - General Internal Medicine 09/10/14 Niko Salamanca MD [address] [place] [address] Nephrology 01/16/25 documented as of this encounter
--- OUTSIDE RECORDS SUMMARY | 2025-02-27 15:37 | XMS_ITS | Clinical Summary ---
Author Organization [facility] Address [address] [place] [address] Care Team Providers Care Investigations Manager Name Role Phone Unavailable Primary Care Provider [...] Documents on File Type Date Recorded Patient Check Out Cashier Expl anation Health Care Decision (hx) 01/10/2020 AD PHILLIP DIRECTIVE
--- OUTSIDE RECORDS SUMMARY | 2025-02-27 15:37 | XMS_ITS | Encounter Summary ---
Author Organization [employer] [facility] Address [address] [facility] 7t [place] [address] Care Team Providers Care Solar Thermal Installer Name Role Phone Pedro Pulliam MD Primary Care Provide r Niko Salamanca MD Unavailable [phone] Encounter Details Date Type Department Care Team (Late st Contact Info) Description 02/01/2023 Orders Only [facility] MED & PEDS [address] [place] [address] Shira Castano LPN Social History Tobacco Use [...] Description 04/17/2025 1:15 PM EDT Office Visit [facility] MEDICINE 230 [place] [address] Pedro Pulliam MD 230 [place], [place] [phone] documented as of this encounter Visit Diagnoses Not on filedocumented in this encounter Care Teams Solar Thermal Installer Relationship Specialty Start Date End Date Pedro Pulliam MD 230 [place], [place] [phone] PCP - General Internal Medicine 09/10/14 Niko Salamanca MD [address] [place] [address] Nephrology 01/16/25 documented as of this encounter
--- OUTSIDE RECORDS SUMMARY | 2025-02-27 15:37 | XMS_ITS | Encounter Summary ---
Author Organization [employer] Address [address] [facility] [address] 7t [place] [address] Care Team Providers Care Housekeeper And Laundry Assistant Name Role Phone Pedro Pulliam MD Primary Care Provide r Niko Salamanca MD Unavailable [phone] Reason for Visit * Reason Onset Date Comments Critical lab 02/27/2025 Encounter Details Date Type Department Care Team (Late st Contact Info) Description 02/27/2025 Telephone [facility] 230 [place], [place] [phone] Pedro Pulliam MD 230 [place], [place] [phone] Critical lab Social History Tobacco Use Types Packs/Day Years Used Date Smoking Tobacco: Never Passive Smoke Exposure: Never Smokeless Tobacco: Never Depression Answer Date Recorded Patient Health Questionnaire-9 Score 0 10/17/2024 Patient Health Questionnaire-9 Score 0 10/17/2024 Last PHQ-9: Questionnaire Data Not on file 1 12/18/2023 Housing Stability Answer Date Recorded What is your housing situation today? I have prashantchaz reid 10/17/[address] you [...] encounter Miscellaneous Notes * Telephone Encounter - Nallely Lozano RN - 02/27/2025 2:43 PM EDT TC incoming from Fatimah at [facility] anticoagulation clinic. Pt INR is 7.4. pt was started on bactrim last . Did not follow instruction on ose reduction. Warfarin held today and tomorrow, recheck on . [facility] informed pt to go to ED for any falls or cuts. Nurse to route to PCP and team nurses for review. Justa GOLDEN made aware verbally. documented in this encounter Plan of Treatment Upcoming Encounters Date Type Department Care Team (Late st Contact Info) Description 04/17/2025 1:15 PM EDT Office Visit [facility] MED[facility] 230 [place] [address] Pedro Pulliam MD 230 [place] [address] documented as of this encounter Visit Diagnoses Not on filedocumented in this encounter Additional Health Concerns Assessment Noted Time PHQ-9 Depression Total Score: 0 10/17/20 24 1:50 PM EST documented as of this encounter Care Teams Housekeeper And Laundry Assistant Relationship Specialty Start Date End Date Pedro Pulliam MD [address] [place] [address] PCP - General Internal Medicine 09/10/14 Niko Salamanca MD [address] [place] [address] Drive [address] [place] [address] Nephrology 01/16/25 documented as of this encounter
--- OUTSIDE RECORDS SUMMARY | 2025-02-27 15:37 | XMS_ITS | Encounter Summary ---
Author Organization [employer] Address [address] [facility] [address] 7t [place] [address] Care Team Providers Care Hematologist Name Role Phone Pedro Pulliam MD Primary Care Provide r Niko Salamanca MD Unavailable [phone] Encounter Details Date Type Department Care Team (Late st Contact Info) Description 02/27/2025 Orders Only GENERIC EXTERNAL DATA DEPARTMENT [...] EDT Office Visit [facility] 230 [place], [place] [phone] Pedro Pulliam MD 230 [place] [address] documented as of this encounter Procedures Procedure Name Priority Date/Time Associated Diagnosis Comments PROTHROMBIN TIME-INR Routine 02/27/2025 1:31 PM EDT PROTHROMBIN TIME WHOLE BLD POC Routine 02/27/2025 1:16 PM EDT ~PT, ~INR - ANTI COAG CLINIC Routine 02/27/2025 1:16 PM EDT documented in this encounter Results * (ABNORMAL) Prothrombin Time-INR (02/27/2025 1:31 PM EDT) [facility] Signature Prothrombin Time 86.4(H) 10.9 - 12.4 SEC [facility] INTERNATIONAL NORM RATIO 7.4(HH) 0.9 - 1.1 [facility] Comment:RESULTS OF INR BURGOS D [...] 1:31 PM EDT 02/27/2025 1:31 PM EDT Generic External Data Provider LAB BLOOD ORDERAB LES Final Result Performing Organization Address [facility] Co de Phone Number [facility] [address] [place] [phone] * (ABNORMAL) PROTHROMBIN TIME WHOLE BLD POC (02/27/2025 1:16 PM EDT) Protime 83.8(H) 11.1 - 13.5 sec [facility] 02/27/2025 1:16 PM EDT 02/27/2025 1:18 PM EDT Generic External Data Provider LAB BLOOD ORDERAB LES Final Result Performing Organization Address [facility] de Phone Number [facility] [address] [place] [phone] * (ABNORMAL) ~PT, ~INR - ANTI COAG CLINIC (02/27/2025 1:16 PM EDT) Prothrombin Time INR 7.0(HH) 0.9 - 1.1 [facility] Comment:METER #: [id number] ctor NotifiedINTERNATIONAL NORMALIZED RATIO (INR) REFERENCE RANGES [...] 1:16 PM EDT 02/27/2025 1:18 PM EDT us Generic External Data Provider LAB BLOOD ORDERAB LES Final Result [facility] [address] [place] [phone] [phone] documented in this encounter Visit Diagnoses Not on filedocumented in this encounter Additional Health Concerns Assessment Noted Time PHQ-9 Depression Total Score: 0 10/17/20 24 1:50 PM EST documented as of this encounter Care Teams Hematologist Relationship Specialty Start Date End Date Pedro Pulliam MD [address] [place] [address] PCP - General Internal Medicine 09/10/14 Niko Salamanca MD [address] [place] [address] Nephrology 01/16/25 documented as of this encounter
--- OUTSIDE RECORDS SUMMARY | 2025-02-27 15:37 | XMS_ITS | Clinical Summary ---
Author Organization [facility] Facility Address [address] [address] Care Team Providers Care Ukrainian Folk Arts Instructor Name Role Phone Pedro Snow MD Primary [...] age to complete this topic Care Teams Ukrainian Folk Arts Instructor Relationship Specialty Start Date End Date Pedro Snow MD PCP - General 11/18/20
== END 2025-02-27 15:08 | disposition home or self-care (01) ==
LOC: HO.ACS 13:10
PROVIDERS: PCP Internal Medicine; Visit Provider Internal Medicine Medical Oncology
DX: Z79.01 Long term (current) use of anticoagulants (principal)

== ENCOUNTER 2025-03-01 14:12 | Outpatient (AMB) | payer OTHER, SELFPAY ==
[2025-03-01 14:22] LABS: Prothrombin Time Whole Bld POC 40.1 sec (11.1-13.5); ~PT, ~INR - Anti Coag Clinic 3.3 (0.9-1.1)
--- NOTE | 2025-03-01 14:39 | MHC.OFFVISCO ---
Intake Intake Visit Reasons: Anticoagulation Allergies No Known Allergies [No Known Allergies*] Allergy (Verified 03/01/25 14:13) Medication List - Last Reconciled 03/01/25 by Lisa Ruth RN amlodipine 5 mg PO DAILY aspirin 81 mg PO DAILY atorvastatin 80 mg PO BEDTIME cholecalciferol (vitamin D3) 25 mcg PO DAILY dorzolamide-timolol 22.3-6.8 mg/mL 22.3 drps ophthalmic (eye) BID ferrous sulfate (FeroSul) 1 tab PO DAILY furosemide 40 mg PO DAILY iron sucrose (Venofer) 200 mg IV Q3D lisinopril 40 mg PO DAILY octreotide acetate (Mycapssa) 20 mg PO DAILY travoprost 0.004% 1 drp ophthalmic (eye) BEDTIME warfarin 5 mg See Protocol PO DAILY Nursing Note INR 3.3 out of therapeutic range Medications and supplements reviewed Patient status: Pt is s/p antbx completion as of today-for infection, but now has URI x 2 days and no appetite Medications or supplements: no other changes Diet: no appetite for several days- although he ate broccoli spinache and avocado yesterday Denies any signs and symptoms of bleeding or clotting or unusual bruising Bleeding, bruising, clotting discussed Nutritional guidance given: try to eat a greens Dose: decrease to 2.5mg next 3 days then resume usual dose 5mg x 5 days/ 2.5mg Wed and Wednesday F/U INR Date: 10 days ?? Patient verbalizing understanding of instructions given with read back. Anti-Coag Initial Assessment Social Hx Patient Tobacco Use Status: Former Tobacco user Tobacco use type: Cigarette alcohol intake: former Alcohol intake frequency: does not drink Questionnaires HAS-BLED Does the patient had uncontrolled Hypertension?: No Does the patient have renal disease?: Yes Does the patient have liver disease?: No Does the patient have a history of stroke?: No Has the patient had major bleeding or predisposition to bleeding?: Yes Does the patient have labile INRs?: Yes Is the patient over 65 years of age?: Yes Is the patient on medications that gives them a predisposition to bleeding?: Yes Does the patient use alcohol?: No HAS-BLED Score: 5 CHADSVASC Age: 75 or over Gender: Male Does the patient have a history of CHF?: No Does the patient have a history of Hypertension?: Yes Does the patient have a history of Stroke/TIA/Thromboembolism?: No Does the patient have a history of Vascular Disease (prior MS, PAD or aortic plaque)?: Yes Does the patient have a history of Diabetes?: No CHADS VACS Score: 4 Ajay Prediction Score Rsk VTE Active Cancer: No Previous VTE, excluding superficial vein thrombosis: No Reduced mobility: No Already known Thrombophilic Condition: No (AFIB, CHOLSTEROL) With-in last month Trauma and/or Surgery: No Elderly 70 year or older: Yes Heart and/or Respiratory Failure: No Acute Myocardial infarction and/or Ischemic Stroke: No Acute Infection and/or Rheumatologic Disorder: Yes (hx of gastritis ) Obesity (BMI 30 or greater): No Ongoing Hormonal Treatment: No Score: 2 Ajay Score less than 4; Low Risk of VTE Ajay Score 4 or greater; High Risk of VTE Coding Level of Care Code Est Patient Level 1 Diagnoses Current use of anticoagulant therapy Z79.01 Results AMB INR Fingerstick AMB INR Fingerstick 3.3 Last Edit by Lisa Ruth RN on 03/01/25 14:27 POOR INTERFACE DELAY Assessment & Plan Assessment & Plan (1) Current use of anticoagulant therapy: Comment: warfarin-Brittanieyun Margarette- need to confirm ok to stop 5 days prior to colonoscopy-unable to send note through expanse Patient aware this must be confirmed, there were no major barriers to understanding identified Code(s): Z79.01 - [facility] (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
--- OUTSIDE RECORDS SUMMARY | 2025-03-01 16:42 | XMS_ITS | Encounter Summary ---
Author Organization [employer] Address [address] [place] [address] Care Team Providers Care Technology Advisor Name Role Phone Pedro Pulliam MD Primary Care Provide r Niko Salamanca MD Unavailable [phone] Reason for Visit * Reason Onset Date Comments Critical lab 02/27/2025 Encounter Details Date Type Department Care Team (Late st Contact Info) Description 02/27/2025 Telephone [facility] PEDIATRICS [address], [place] [phone] Pedro Pulliam MD [address] [place], [place] [phone] Critical lab Social History Tobacco Use Types [...] PM EDT TC incoming from [place] at [facility] anticoagulation clinic. Pt INR is 7.4. pt was started on bactrim last . Did not follow instruction on ose reduction. Warfarin held today and tomorrow, recheck on . [facility] informed pt to go to ED for any falls or cuts. Nurse to route to PCP and team nurses for review. Justa GOLDEN made aware verbally. documented in this encounter Plan of Treatment Upcoming Encounters Date Type Department Care Team (Late st Contact Info) Description 04/17/2025 1:15 PM EDT Office Visit [facility] MEDICINE [address] [place] [address] Pedro Pulliam MD [address] [place] [address] documented as of this encounter Visit Diagnoses Not on filedocumented in this encounter Additional Health Concerns Assessment Noted Time PHQ-9 Depression Total Score: 0 10/17/20 24 1:50 PM EST documented as of this encounter Care Teams Technology Advisor Relationship Specialty Start Date End Date Pedro Pulliam MD [address] [place] [id number] PCP - General Internal Medicine 09/10/14 Niko Salamanca MD [address] [place] [address] [address] [place] [address] Nephrology 01/16/25 documented as of this encounter
--- OUTSIDE RECORDS SUMMARY | 2025-03-01 16:42 | XMS_ITS | Encounter Summary ---
Author Organization [facility] Address [address] [place] [address] Care Team Providers Care Shorer Name Role Phone Pedro Pulliam MD Primary Care Provide r Niko Salamanca MD Unavailable [phone] Encounter Details Date Type Department Care Team (Late st Contact Info) Description 05/31/2023 Orders Only [facility] MEDICINE [address] [place] [id number] Shanita Pfeiffer LPN Social History Tobacco Use [...] 04/17/2025 1:15 PM EDT Office Visit [facility] MEDICINE [address] [place] [phone] Pedro Pulliam MD [address] [place] [address] documented as of this encounter Visit Diagnoses Not on filedocumented in this encounter Care Teams Shorer Relationship Specialty Start Date End Date Pedro Pulliam MD [address] [place] [phone] PCP - General Internal Medicine 09/10/14 Niko Salamanca MD [address] [place] [address] Nephrology 01/16/25 documented as of this encounter
--- OUTSIDE RECORDS SUMMARY | 2025-03-01 16:42 | XMS_ITS | Clinical Summary ---
Author Organization [facility] Address [address] [place] [address] Care Team Providers Care Director Of Career Resources Name Role Phone Unavailable Primary Care Provider [...] Documents on File Type Date Recorded Patient Marine Fitter Expl anation Health Care Decision (hx) 01/10/2020 AD PHILLIP DIRECTIVE
--- OUTSIDE RECORDS SUMMARY | 2025-03-01 16:42 | XMS_ITS | Clinical Summary ---
Author Organization [employer] Address [address] [place] [address] Care Team Providers Care Legal Librarian Name Role Phone Pedro Pulliam MD Primary Care Provide r Niko Salamanca MD Unavailable [phone] Allergies No known active allergies Medications [...] 90 tablet 3 02/10/20 24 025 Discontinued sulfamethoxazole-t rimethoprim (Bactrim DS) 800-160 MG tabletIndications: Epididymoorchitis Take 1 tablet by mouth 2 times daily for 7 days. 14 tablet 02/21/20 25 025 Active Problems Problem Noted Date Diagnosed Date [...] pt currently undergoing PT with good results. [facility] care 09/23/2023 Assessment & Plan (10/17/2024 [...] only by Dr connors at [facility] Mixed hyperlipidemia 08/13/2015 09/15/2023 Assessment & Plan [...] past by [place] vascular [place] [facility] [place] whose recommendation was conservative treatment, he saw NO role for any type of surgical intervention. He recommended to repeat the scan in 1 year and continue to take Asa 81 mg po daily. 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 I had recently lowered his Lasix [...] and lasix 20 mg daily prescribed by Ultrasound Manager. I had recently lowered his Lasix [...] Am and 20 mg PM prescribed by Ultrasound Manager. I had recently lowered his Lasix [...] Am and 20 mg PM prescribed by Ultrasound Manager. Pt developed some bilateral ankle edema [...] Furosemide 20 mg po BID prescribed by Ultrasound Manager. Pt developed some bilateral ankle edema [...] Furosemide 20 mg po BID prescribed by Ultrasound Manager. Pt developed some bilateral ankle edema [...] impression. Plan: [place] [facility] Assessment & Plan (02/01/2024 1:36 PM [...] Encounters Date Type Department Care Team Description 03/01/2025 Orders Only GENERIC EXTERNAL DATA DEPARTMENT Provider, Generic External Data 02/27/2025 Telephone [facility] PEDIATRICS [address] [place] [address] Pedro Pulliam MD Critical lab 02/27/2025 Orders Only GENERIC EXTERNAL DATA DEPARTMENT Provider, Generic External Data 02/21/2025 Telephone [facility] MEDICINE [address] [place] [address] Sammy, Justa, RN Results; Lab Orders; Referral 02/20/2025 Orders Only [facility] [place] [phone] Pedro Pulliam MD Epididymoorchitis (Primary Dx) 02/12/2025 Telephone [facility] [place] [address] Pedro Pulliam MD Paperwork/Forms 02/11/2025 Refill [facility] [place] [address] Pedro Pulliam MD Vitamin D deficiency 02/07/2025 Orders Only GENERIC EXTERNAL DATA DEPARTMENT Provider, Generic External Data 01/16/2025 Telephone [facility] [place] [address] Justa Christianson RN Interoffice Communication 01/15/2025 Telephone [facility] [place] [address] Pedro Pulliam MD Referral 01/11/2025 1:15 PM EST Office Visit [facility] [place] [address] Pedro Pulliam MD Primary hypertension (Primary Dx); KARINA (obstructive sleep apnea); Longstanding persistent atrial fibrillation (CMS/HCC); Gynecomastia; Stage 3b chronic kidney disease (CMS/HCC); Iron deficiency; Mixed hyperlipidemia 01/11/2025 Travel 01/10/2025 Orders Only GENERIC EXTERNAL DATA DEPARTMENT Provider, Generic External Data 01/02/2025 Patient Outreach [facility] [place] [address] Pedro Pulliam MD Pre-visit Planning (SDOH Screening negative and Tobacco screening negative) 12/28/2024 Telephone [facility] [place] [address] Pedro Pulliam MD Chart Prep 12/20/2024 Orders [...] 04/17/2025 1:15 PM EDT Office Visit [facility] MEDICINE [address] [place] [address] Pedro Pulliam MD [address] [place] [address] Health Maintenance Due Date Last Done Comments [...] Comments PROTHROMBIN TIME WHOLE BLD POC Routine 03/01/2025 2:20 PM EDT ~PT, ~INR - ANTI COAG CLINIC Routine 03/01/2025 2:20 PM EDT PROTHROMBIN TIME-INR Routine 02/27/2025 1:31 PM EDT [...] COAG CLINIC Routine 12/20/2024 1:06 PM EST BI MAMMOGRAM DIAGNOSTIC TOMOSYNTHESIS BILATERAL Routine 04/11/2024 3:15 PM EDT Gynecomastia ZZZ HISTORICAL HEPATITIS C AB W/REFL TO HCV RNA, QN, PCR Routine 12/24/2021 8:24 AM EST from Last 3 Months or Most Recently Relevant to Health Maintenance Results * (ABNORMAL) PROTHROMBIN TIME WHOLE BLD POC (03/01/2025 2:20 PM EDT) Only the most recent of5 resultswithin the time period is included. Protime 40.1(H) 11.1 - 13.5 sec [facility] 03/01/2025 2:20 PM EDT 03/01/2025 2:22 PM EDT us Generic External Data Provider LAB BLOOD ORDERAB LES Final Result [facility] [address] [place] [address] [phone] * (ABNORMAL) ~PT, ~INR - ANTI COAG CLINIC (03/01/2025 2:20 PM EDT) Only the most recent of5 resultswithin the time period is included. Prothrombin Time INR 3.3(H) 0.9 - 1.1 [facility] Comment:METER #: [id number] TERNATIONAL NORMALIZED RATIO (INR) REFERENCE RANGES Reference RangeFor patients not on anticoagulant therapy: 0.9 - 1.1INR ranges for oral anticoagulanttherapy:For prevention and treatment of venous thrombosis and pulmonary embolism: 2.0 - 3.0For acute myocardial infarction with aspirin therapy: 2.0 - 3.0For acute myocardial infarction without aspirin therapy: 3.0 - 4.0For patients with mechanical prosthetic heart valves: 2.5 - 3.5 03/01/2025 2:20 PM EDT 03/01/2025 2:22 PM EDT Generic External Data Provider LAB BLOOD ORDERAB LES Final Result Performing Organization Address [facility] Co de Phone Number [facility] [address] [place] [phone] * (ABNORMAL) Prothrombin Time-INR (02/27/2025 1:31 PM EDT) Prothrombin Time 86.4(H) 10.9 - 12.4 SEC [facility] INTERNATIONAL NORM RATIO 7.4(HH) 0.9 - 1.1 [facility] Comment:RESULTS OF INR BURGOS D [...] ORDERAB LES Final Result Performing Organization Address [facility] Co de Phone Number [facility] [address] [place] [phone] * (ABNORMAL) Urinalysis, Complete, with Reflex to Culture (02/22/2025 9:20 AM EDT) Color Urine Dark Yellow [facility] Appearance Urine Turbid [facility] PH 5.0 5.0 - 9.0 [facility] Glucose Urine UA Negative Negative mg/dL [facility] Urine Blood Negative Negative [facility] Specific [place] - Urine 1.025 1.005 - 1.025 [facility] Urine Protein 30 (1+)(A) Neg-Trace mg/dL [facility] Urine Ketones 15 Negative mg/dL [facility] Nitrite Urine Negative Negative [facility] Leukocyte Esterase Urine Trace(A) Negative [facility] RBC Urine 0-2 0 - 2 /HPF [facility] Urine WBC 0-5 0 - 5 /HPF [facility] Urine Squamous Epithelial Cell 3-5 0 - 2 /HPF [facility] CALCIUM OXALATE CRYSTAL, UR Present [facility] Urine Bacteria None Seen None Seen [facility] Hyaline Casts, Urine 3-5 0 - 2 /LPF [facility] GRANULAR CASTS (#/HPF) IN URINE Present [facility] Waxy Casts Present [facility] Urine 02/22/2025 9:20 AM EDT 02/22/2025 11:25 AM EDT Narrative [facility] - 02/22/2025 12:09 PM EDT Urine, Clean Catch us Pedro Julian MD LAB URINE ORDERABLES Final Result Performing Organization Address City/State/[facility] Co de Phone Number [facility] [address] [place] [phone] [phone] * US Scrotum (02/19/2025 3:57 PM EDT) Anatomical Region Laterality Modality Body Ultrasound 02/19/2025 3:57 PM EDT Narrative 02/19/2025 4:56 PM EDT ? [facility] ?[address] ?[place] [address] ? Ultrasound Report ? Signed ? Patient: Pablo Quinteros,Jamie ?MR#: ?? [id number] ? : 1945 ?Acct:[id number] ? Age/Sex: 79 / M ?ADM Date: 04/14/25 ? Loc: HO.US ? Attending Dr: Niko Salamanca MD ? Ordering Physician: Pedro Webber MD ?? Date of Service: 02/19/25 ?? Procedure(s): US scrotum ?? Accession Number(s): [id number] ? cc: Pedro Webber MD ? EXAMINATION: [...] by Miguel A Bradley MD in OV> ?02/19/ 1653 ? DD/DT: 02/19/ 1557 ? TD/TT: 02/19/ 1613 ? Dot Net Developer: ? Procedure Note Donotuseinterpreter, Image - 02/19/[address] [address] Ultrasound Report Signed Patient: Rik Carpio#: [id number] : 1945Acct:[id number] Age/Sex: 79 / MADM Date: 02/19/25 Loc: HO.US Attending Dr: Niko Salamanca MD Ordering Physician: Pedro Webber MD Date of Service: 02/19/25 Procedure(s): US scrotum Accession Number(s): [id number] cc: Pedro Webber MD EXAMINATION: US SCROTUM [...] 02/19/25 1653 DD/ 1557 TD/TT: 02/19/25 1613 Dot Net Developer: us Pedro Julian MD IMG US PROCEDURES Ortiz david Result - Final * US RENAL BI (02/19/2025 3:38 PM EDT) Anatomical Region Laterality Modality Abdomen Ultrasound 02/19/2025 3:38 PM EDT Narrative 02/19/2025 4:52 PM EDT ? [facility] ?[address] ?[place] [address] ? Ultrasound Report ? Signed ? Patient: Jamie Carpio ?MR#: ?? [id number] ? : 1945 ?Acct:[id number] ? Age/Sex: 79 / M ?ADM Date: 02/19/25 ? Loc: HO.US ? Attending Dr: Niko Salamanca MD ? Ordering Physician: Niko Salamanca MD ?? Date of Service: 02/19/25 ?? Procedure(s): US renal BI ?? Accession Number(s): [id number] ? cc: Niko Salamanca MD; Pedro Webber [...] DD/ 1538 ? TD/TT: 02/19/25 1548 ? Dot Net Developer: MSM ? Procedure Note Donamarilyster, Image - 02/19/2025 [place] [address] Ultrasound Report Signed Patient: Rik Carpio#: [id number] : 6Acct:[id number] Age/Sex: 79 / MADM Date: 02/19/25 Loc: HO.US Attending Dr: Niko Salamanca MD Ordering Physician: Niko Salamanca MD Date of Service: 02/19/25 Procedure(s): US renal BI Accession Number(s): [id number] cc: Niko Salamanca MD; Pedro Webber MD [...] 02/19/25 1650 DD/ 1538 TD/TT: 02/19/25 1548 Dot Net Developer: CARLOTA us [facility] External Provider IMG US PROCEDURES Edited Result - Final * TSH with Reflex to Free T4 (01/16/2025 9:13 AM EDT) TSH reflex Free T4 1.80 0.32 - 4.0 uIU/mL [facility] Blood Venous blood specimen / Unknown 01/16/2025 9:13 AM EDT 01/16/2025 11:29 AM EDT us Pedro Julian MD LAB BLOOD ORDERABLES Final Result [facility] [address] [place] [phone] * hCG, Total, Quantitative (01/16/2025 9:13 AM EDT) HCG Quantitative <2 mIU/mL [facility] Blood Venous blood specimen / Unknown 01/16/2025 9:13 AM EDT 01/16/2025 11:29 AM EDT Pedro Julian MD LAB BLOOD ORDERABLES Final Result Performing Organization Address [facility]/ZIP Co de Phone Number [facility] [address] [place] [phone] [phone] * (ABNORMAL) Lipid Panel, Standard (01/16/2025 9:13 AM EDT) Triglycerides 40 <150 mg/dL [facility] Comment:Desirable Triglyceri de: less than 150 mg/dLBorderline High Triglyceride 150-199 mg/dLHigh Triglyceride: 200-499 mg/dLVery High Triglyceride: greater than or equal to 5OO mg/dL Cholesterol 93 <200 mg/dL [facility] Comment:Desirable Cholestero l: less than 200 mg/dLBorderline High Cholesterol: 200-239 mg/dLHigh Cholesterol: greater than 239 mg/dL LDL Cholesterol Calculated 58 <100 mg/dL [facility] Comment:Desirable LDL: less than 100 mg/dLNear Optimal/Above Optimal LDL: 110- 129 mg/dLBorderline High LDL: 130-159 mg/dLHigh LDL: 160-189 mg/dLVery High LDL: greater than or equal to 190 mg/dL HDL Cholesterol 27(L) >40 mg/dL [facility] Comment:Desirable HDL: great er than 40 mg/dL Note: This HDL assay may give artificially low results in patients with liver disease. Blood Venous blood specimen / Unknown 01/16/2025 9:13 AM EDT 01/16/2025 11:29 AM EDT Pedro Julian MD LAB BLOOD ORDERABLES Final Result Performing Organization Address City/[facility]/ZIP Co de Phone Number [facility] [address] [place] [address] [phone] * (ABNORMAL) Basic Metabolic Panel (01/16/2025 9:13 AM EDT) Sodium 141 135 - 145 mmol/L [facility] Potassium 4.5 3.3 - 5.1 mmol/L [facility] Chloride 111(H) 96 - 108 mmol/L [facility] Carbon Dioxide 25 22 - 29 mmol/L [facility] Anion Gap 10(L) 12 - 20 [facility] Urea Nitrogen (BUN) 28(H) 9 - 16 mg/dL [facility] Creatinine, Serum 1.90(H) 0.5 - 1.4 mg/dL [facility] Estimated Glomerular Filt Rate 34 [facility] Comment:Chronic Kidney Disea se: Estimated GFR < 60 mL/min/1.39i4Lqsclb Kidney Disease: Estimated GFR < 15 mL/min/1.73m2 Glucose 93 60 - 115 mg/dL [facility] Calcium 8.7 8.4 - 10.2 mg/dL [facility] Blood Venous blood specimen / Unknown 01/16/2025 9:13 AM EDT 01/16/2025 11:29 AM EDT Pedro Julian MD LAB BLOOD ORDERABLES Final Result Performing Organization Address City/[facility]/ZIP Co de Phone Number [facility] [address] [place] [phone] * Prolactin (01/16/2025 8:13 AM EDT) Prolactin 9.2 2.0 - 18.0 ng/mL [facility] Comment:THIS TEST WAS PERFOR MED AT:[facility] [place] [phone] SEGURA MD Blood Venous blood specimen / Unknown 01/16/2025 8:13 AM EDT 01/16/2025 11:29 AM EDT Pedro Julian MD LAB BLOOD ORDERABLES Final Result Performing Organization Address City/[facility]/ZIP Co de Phone Number [facility] [address] [place] [phone] * DHEA Sulfate (01/16/2025 8:13 AM EDT) Pathologist [facility] DHEA Sulfate 44 3 - 225 mcg/dL [facility] Comment:THIS TEST WAS PERFOR MED AT:[facility] [address] [id number] SEGURA MD Blood Venous blood specimen / Unknown 01/16/2025 8:13 AM EDT 01/16/2025 11:29 AM EDT Pedro Julian MD LAB BLOOD ORDERABLES Final Result Performing Organization Address [facility]/ZIP Co de Phone Number [facility] [address] [place] [phone] * (ABNORMAL) Estradiol (01/16/2025 8:13 AM EDT) [facility] Estradiol Ultra Sensitive 37(A) < OR = 29 pg/mL [facility] Comment:This test was develo ped and its analytical performancecharacteristics have been determined by [employer].It has not been cleared or approved by the FDA. This assayhas been validated pursuant to the CLIA regulations and isused for clinical purposes.THIS TEST WAS PERFORMED AT:[facility]/[place] [id number] [place] [address]HCOIWPHILLIP RODRIGUEZ MD,PHD,VIPUL Blood Venous blood specimen / Unknown 01/16/2025 8:13 AM EDT 01/16/2025 11:29 AM EDT Pedro Julian MD LAB BLOOD ORDERABLES Final Result Performing Organization Address [facility]/ZIP Co de Phone Number [facility] [address] [place] [phone] * Testosterone, Free (Dialysis) And Total, MS (01/16/2025 8:13 AM EDT) [facility] Testosterone, Total 498 250 - 1100 ng/dL [facility] Comment:Men with clinically significant hypogonadalsymptoms and testosterone values repeatedly inthe range of the 200-300 ng/dL or less, maybenefit from testosterone treatment afteradequate risk and benefits counseling.For additional information, please refer tohttp://education.[employer]/faq/SdsnbXglnyeucnmkrQXOHGIVHH046(This link is being provided for informational/educational purposes only.)This test was developed and its analytical performancecharacteristics have been determined by [facility] [place], [place]. It hasnot been cleared or approved by the U.S. Food and DrugAdministration. This assay has been validated pursuantto the CLIA regulations and is used for clinicalpurposes. Testosterone, Free 60.8 30.0 - 135.0 pg/mL [facility] Comment:This test was develo ped and its analytical performancecharacteristics have been determined by [facility] [place], [place]. It hasnot been cleared or approved by the U.S. Food and DrugAdministration. This assay has been validated pursuantto the CLIA regulations and is used for clinicalpurposes.THIS TEST WAS PERFORMED AT:[id number] [place] [address]GDNMTGHRAMSES CULLEN MD,PHD Blood Venous blood specimen / Unknown 01/16/2025 8:13 AM EDT 01/16/2025 11:29 AM EDT us Pedro Julian MD LAB BLOOD ORDERABLES Final Result [facility] [address] [place], [place] [phone] * (ABNORMAL) LH (01/16/2025 8:13 AM EDT) Lutenizing Hormone 37.7(A) 1.6 - 15.2 mIU/mL [facility] Comment:THIS TEST WAS PERFOR MED AT:[facility] [address] [phone] SEGURA MD Blood Venous blood specimen / Unknown 01/16/2025 8:13 AM EDT 01/16/2025 11:29 AM EDT Pedro Julian MD LAB BLOOD ORDERABLES Final Result Performing Organization Address [facility] Co de Phone Number [facility] [address] [place] [phone] [phone] * (ABNORMAL) FSH (01/16/2025 8:13 AM EDT) Follicle Stimulating Hormone 49.9(A) 1.4 - 12.8 mIU/mL [facility] Comment:THIS TEST WAS PERFOR MED AT:[facility] [place] [phone] SEGURA MD Blood Venous blood specimen / Unknown 01/16/2025 8:13 AM EDT 01/16/2025 11:29 AM EDT Pedro Julian MD LAB BLOOD ORDERABLES Final Result Performing Organization Address [facility] Co de Phone Number [facility] [address] [place] [phone] * BI Mammogram Diagnostic Tomosynthesis Bilateral (04/11/2024 3:15 PM EDT) Anatomical Region Laterality Modality Breast Bilateral Mammography 04/11/2024 3:15 PM EDT Narrative 04/11/2024 4:59 PM EDT ? [facility] ? [address] ?[place] [address] ? Mammography Report ? Signed ? Patient: Pablo Quinteros,Jamie ?MR#: ?? [id number] ? : 1945 ?Acct:[id number] ? Age/Sex: 79 / M ?ADM Date: 06/04/24 ? Loc: HO.MAMMO ? Attending Dr: Pedro Webber MD ? Ordering Physician: Pedro Webber MD ?Resu ?? lts: 2Benign Findings ? Date of Service: 04/11/24 ?Follow Up: 1 Year From Orig ?? inal Mammogram ? Procedure(s): MM tomosynthesis diagnostic BI ?? Accession Number(s): [id number] ? cc: Pedro Webber MD ? EXAMINATION: [...] 1654 ? DD/ 1515 ? TD/TT: ? Dot Net Developer: ? Procedure Note Fran, Yazan - 04/11/2024 [facility] [address] [place] [address] Mammography Report Signed Patient: Rik Carpio#: [id number] : 6Acct:[id number] Age/Sex: 79 / MADM Date: 04/11/24 Loc: HO.MAMMO Attending Dr: Pedro Webber MD Ordering Physician: Pedro Webber MDResu lts: 2Benign Findings Date of Service: 04/11/24Follow Up: 1 Year From Orig ina Mammogram Procedure(s): MM tomosynthesis diagnostic BI Accession Number(s): [id number] cc: Pedro Webber MD EXAMINATION: MM DIAGNOSTIC [...] in OV> 04/11/24 1654 DD/ 1515 TD/TT: Dot Net Developer: Pedro Julian MD IMG BI PROCEDURES Fin al Result * HEPATITIS C AB W/REFL TO HCV RNA, QN, PCR (12/24/2021 8:24 AM EST) HEPATITIS C ANTIBODY NON-REACT SIL NON-REACT SIL [facility] INDEX 0.01 <1.00 [facility] Comment: ?? HCV antibody was non-reactive. There is no laboratory ?? evidence of HCV infection. ?? In most cases, no further action is required. However, if recent HCV exposure is suspected, a test for HCV RNA (test code 91895) is suggested. ?? For additional information please refer to http://education.[employer]/faq/YQA87z2 (This link is being provided for informational/ educational purposes only.) ?? 12/24/2021 8:24 AM EST us Pedro Julian MD HISTORICAL/NON ORDERA BLE LABS Final Result [facility] [address] from Last 3 Months or Most Recently Relevant to Health Maintenance Insurance [employer] [facility] Care Teams Legal Librarian Relationship Specialty Start Date End Date Pedro Pulliam MD [address] [place] [phone] PCP - General Internal Medicine 09/10/14 Niko Salamanca MD [address] [place] [address] [address] [place] [phone] Nephrology 01/16/25
--- OUTSIDE RECORDS SUMMARY | 2025-03-01 16:42 | XMS_ITS | Clinical Summary ---
Author Organization [facility] Facility Address [address] [address] Care Team Providers Care Powerhouse Electrician Name Role Phone Pedro Snow MD Primary [...] age to complete this topic Care Teams Powerhouse Electrician Relationship Specialty Start Date End Date Pedro Snow MD PCP - General 11/18/20
--- OUTSIDE RECORDS SUMMARY | 2025-03-01 16:42 | XMS_ITS | Encounter Summary ---
Author Organization [employer] Address [address] [place] [address] Care Team Providers Care Boat Operator Name Role Phone Pedro Pulliam MD Primary Care Provide r Niko Salamanca MD Unavailable [phone] Encounter Details Date Type Department Care Team (Late st Contact Info) Description 05/31/2024 Telephone [facility] MEDICINE [address] [place], [place] [phone] Pedro Pulliam MD [address] [place], [place] [phone] Social History Tobacco Use Types Packs/Day Years [...] line 05/31/24 at 1:21 PM Name of Caller/Facility:[facility] Callback number: [phone] Reason for Call: INR 1.4 no missed [...] 04/17/2025 1:15 PM EDT Office Visit [facility] [address] [place] [phone] Pedro Pulliam MD [address] [place] [address] documented as of this encounter Visit Diagnoses Not on filedocumented in this encounter Additional Health Concerns Assessment Noted Time PHQ-9 Depression Total Score: 1 09/23/20 23 1:21 PM EST documented as of this encounter Care Teams Boat Operator Relationship Specialty Start Date End Date Pedro Pulliam MD [address] [place] [phone] PCP - General Internal Medicine 09/10/14 Niko Salamanca MD [address] [place] [address] Drive [address] [place] [phone] Nephrology 01/16/25 documented as of this encounter
--- OUTSIDE RECORDS SUMMARY | 2025-03-01 16:42 | XMS_ITS | Encounter Summary ---
Author Organization [employer] [facility] Address [address] 7t [place] [address] Care Team Providers Care Financial Services Associate Name Role Phone Pedro Pulliam MD Primary Care Provide r Niko Salamanca MD Unavailable [phone] Encounter Details Date Type Department Care Team (Late st Contact Info) Description 02/25/2023 Orders Only [facility] [address] [place] [address] Shanita Pfeiffer LPN Social History Tobacco Use [...] Description 04/17/2025 1:15 PM EDT Office Visit [facility] [address] [place] [address] Pedro Pulliam MD [address] [place] [address] documented as of this encounter Visit Diagnoses Not on filedocumented in this encounter Care Teams Financial Services Associate Relationship Specialty Start Date End Date Pedro Pulliam MD [address] [place] [address] [phone] PCP - General Internal Medicine 09/10/14 Niko Salamanca MD [address] [place] [address] Nephrology 01/16/25 documented as of this encounter
--- OUTSIDE RECORDS SUMMARY | 2025-03-01 16:42 | XMS_ITS | Encounter Summary ---
Author Organization [facility] Address [address] 7t [place] [address] Care Team Providers Care Principal Statistical Scientist Name Role Phone Pedro Pulliam MD Primary Care Provide r Niko Salamanca MD Unavailable Encounter Details Date Type Department Care Team (Late st Contact Info) Description 02/01/[address] [facility] [address] [place] [address] Shira Castano LPN Social History Tobacco Use [...] 04/17/2025 1:15 PM EDT Office Visit [facility] [address] [place] [address] Pedro Pulliam MD [address] [place], [place] [phone] documented as of this encounter Visit Diagnoses Not on filedocumented in this encounter Care Teams Principal Statistical Scientist Relationship Specialty Start Date End Date Pedro uPlliam MD [address] [place], [place] [phone] PCP - General Internal Medicine 09/10/14 Niko Salamanca MD [address] [place] [address] Nephrology 01/16/25 documented as of this encounter
--- OUTSIDE RECORDS SUMMARY | 2025-03-01 16:42 | XMS_ITS | Encounter Summary ---
Author Organization [employer] Address [address] 7t [place] [address] Care Team Providers Care Government Property Inspector Name Role Phone Pedro Pulliam MD Primary Care Provide r Niko Salamanca MD Unavailable [phone] Encounter Details Date Type Department Care [...] 1:15 PM EDT Office Visit [facility] [address] [place], [place] [phone] Pedro Pulliam MD [address] [place] [address] documented as of this encounter Procedures Procedure Name Priority Date/Time Associated Diagnosis Comments PROTHROMBIN TIME-INR Routine 02/27/2025 1:31 PM EDT PROTHROMBIN TIME WHOLE BLD POC Routine 02/27/2025 1:16 PM EDT ~PT, ~INR - ANTI COAG CLINIC Routine 02/27/2025 1:16 PM EDT documented in this encounter Results * (ABNORMAL) Prothrombin Time-INR (02/27/2025 1:31 PM EDT) [facility] Signature Prothrombin Time 86.4(H) 10.9 - 12.4 SEC [facility] INTERNATIONAL NORM RATIO 7.4(HH) 0.9 - 1.1 [facility] Comment:RESULTS OF INR BURGOS D [...] ORDERAB LES Final Result Performing Organization Address [facility] Co de Phone Number [facility] [address] [place] [phone] * (ABNORMAL) PROTHROMBIN TIME WHOLE BLD POC (02/27/2025 1:16 PM EDT) Protime 83.8(H) 11.1 - 13.5 sec [facility] 02/27/2025 1:16 PM EDT 02/27/2025 1:18 PM EDT Generic External Data Provider LAB BLOOD ORDERAB LES Final Result Performing Organization Address [facility] de Phone Number [facility] [address] [place] [phone] * (ABNORMAL) ~PT, ~INR - ANTI COAG CLINIC (02/27/2025 1:16 PM EDT) Prothrombin Time INR 7.0(HH) 0.9 - 1.1 [facility] Comment:METER #: [id number] ctor NotifiedINTERNATIONAL NORMALIZED RATIO (INR) REFERENCE RANGES [...] Provider LAB BLOOD ORDERAB LES Final Result [facility] [address] [place] [phone] documented in this encounter Visit Diagnoses Not on filedocumented in this encounter Additional Health Concerns Assessment Noted Time PHQ-9 Depression Total Score: 0 10/17/20 24 1:50 PM EST documented as of this encounter Care Teams Government Property Inspector Relationship Specialty Start Date End Date Pedro Pulliam MD [address] [place] [address] PCP - General Internal Medicine 09/10/14 Niko Salamanca MD [address] [place] [address] Nephrology 01/16/25 documented as of this encounter
--- OUTSIDE RECORDS SUMMARY | 2025-03-01 16:42 | XMS_ITS | Encounter Summary ---
Author Organization [employer] Address [address] 7t [place] [address] Care Team Providers Care Gear Cutting Machine Set Up Operator Name Role Phone Pedro Pulliam MD Primary Care Provide r Niko Salamanca MD Unavailable [phone] Reason for Visit * Reason Onset Date Comments follow up needed 11/20/2024 Encounter Details Date Type Department Care Team ([facility] st Contact Info) Description 11/20/2024 Telephone [facility] [address] [place], [place] [phone] Pedro Pulliam MD [address] [place], [place] [phone] follow up needed Social History Tobacco Use [...] 11/21/2024 10:42 AM EST TC placed to [facility] Pl[facility] Surgery office and spoke to their [...] 12:47 PM EST Tc from Randa with [facility] reporting that they saw [...] Description 04/17/2025 1:15 PM EDT Office Visit [facility] [address] [place] [address] Pedro Pulliam MD [address] [place] [address] documented as of this encounter Visit Diagnoses Not on filedocumented in this encounter Additional Health Concerns Assessment Noted Time PHQ-9 Depression Total Score: 0 10/17/20 24 1:50 PM EST documented as of this encounter Care Teams Gear Cutting Machine Set Up Operator Relationship Specialty Start Date End Date Pedro Pulliam MD [address] [place] [address] PCP - General Internal Medicine 09/10/14 Niko Salamanca MD [address] [place] [address] Drive [address] [place] [address] Nephrology 01/16/25 documented as of this encounter
--- OUTSIDE RECORDS SUMMARY | 2025-03-01 16:42 | XMS_ITS | Encounter Summary ---
Author Organization [facility] Address [address] 7t [place] [address] Care Team Providers Care Felling Machine Operator Name Role Phone Pedro Pulliam MD Primary Care Provide r Niko Salamanca MD Unavailable [phone] Reason for Visit * Reason Comments Med Refill Encounter Details Date Type Department Care Team (Late st Contact Info) Description 06/02/2024 Refill [facility] [address] [place], [place] [phone] Pedro Pulliam MD [address] [place], [place] [phone] Primary hypertension; Stage 3 chronic kidney disease, [...] EDT Office Visit [facility] [address] [place] [address] Pedro Pulliam MD [address] [place] [address] documented as of this encounter Visit Diagnoses Diagnosis Primary hypertension Unspecified essential hypertension Stage 3 chronic kidney disease, unspecified whether stage 3a or 3b CKD ([facility]/HCC) Nonrheumatic tricuspid valve regurgitation documented in this encounter Additional Health Concerns Assessment Noted Time PHQ-9 Depression Total Score: 1 09/23/20 23 1:21 PM EST documented as of this encounter Care Teams Felling Machine Operator Relationship Specialty Start Date End Date Pedro Pulliam MD [address] [place] [address] PCP - General Internal Medicine 09/10/14 Niko Salamanca MD [address] [place] [address] Nephrology 01/16/25 documented as of this encounter
--- OUTSIDE RECORDS SUMMARY | 2025-03-01 16:42 | XMS_ITS | Encounter Summary ---
Author Organization [facility] Address [address] 7t [place] [address] Care Team Providers Care Industrial Analyst Name Role Phone Pedro Pulliam MD Primary Care Provide r Niko Salamanca MD Unavailable [phone] Reason for Visit * Reason Onset Date Comments Med Refill 2023 Encounter Details Date Type Department Care Team (Late st Contact Info) Description 2023 Refill [facility] [address] [place] [address] Pedro Pulliam MD [address] [place] [address] Atrial fibrillation, unspecified type (CMS/HCC) (Primary Dx) [...] Description 04/17/2025 1:15 PM EDT Office Visit [facility] [address] [place] [address] Pedro Pulliam MD [address] [place] [address] documented as of this encounter Visit Diagnoses Diagnosis Atrial fibrillation, unspecified type (CMS/HCC)- Primary documented in this encounter Care Teams Industrial Analyst Relationship Specialty Start Date End Date Pedro Pulliam MD [address] [place] [address] PCP - General Internal Medicine 09/10/14 Niko Salamanca MD [address] [place] [address] Drive [address] [place] [address] Nephrology 01/16/25 documented as of this encounter
--- OUTSIDE RECORDS SUMMARY | 2025-03-01 16:42 | XMS_ITS | Encounter Summary ---
Author Organization [email or web address] Address [address] [facility] [facility] [address] [facility] 7t [place] [address] Care Team Providers Care Refrigeration Houseman Name Role Phone Pedro Pulliam MD Primary Care Provide r Niko Salamanca MD Unavailable [phone] Encounter Details Date Type Department Care Team (Late st Contact Info) Description 01/06/2023 Orders Only [facility] [address] [place] [address] Shira Castano LPN Social History Tobacco Use [...] Description 04/17/2025 1:15 PM EDT Office Visit [facility] [address] [place] [address] Pedro Pulliam MD [address] [place], [place] [phone] documented as of this encounter Visit Diagnoses Not on filedocumented in this encounter Care Teams Refrigeration Houseman Relationship Specialty Start Date End Date Pedro Pulliam MD [address] [place], [place] [phone] PCP - General Internal Medicine 09/10/14 Niko Salamanca MD [address] [place] [address] Nephrology 01/16/25 documented as of this encounter
--- OUTSIDE RECORDS SUMMARY | 2025-03-01 16:42 | XMS_ITS | Encounter Summary ---
Author Organization [employer] Address [address] 7[address] [place] [address] Care Team Providers Care Septic Cleaner Name Role Phone Pedro Pulliam MD Primary Care Provide r Niko Salamanca MD Unavailable [phone] Reason for Visit * Reason Onset Date Comments OV 03/1602/17/2024 Encounter Details Date Type Department Care Team (Late st Contact Info) Description 02/17/2024 Telephone [facility] [address] [place], [place] [phone] Pedro Pulliam MD [address] [place], [place] [phone] OV 03/16 Social History Tobacco Use Types [...] any questions you can contact pt at [phone]. documented in this encounter Plan of Treatment Upcoming Encounters Date Type Department Care Team (Late st Contact Info) Description 04/17/2025 1:15 PM EDT Office Visit [facility] [address] [place] [address] Pedro Pulliam MD [address] [place] [address] documented as of this encounter Visit Diagnoses Not on filedocumented in this encounter Additional Health Concerns Assessment Noted Time PHQ-9 Depression Total Score: 1 09/23/20 23 1:21 PM EST documented as of this encounter Care Teams Septic Cleaner Relationship Specialty Start Date End Date Pedro Pulliam MD [address] [place] [address] PCP - General Internal Medicine 09/10/14 Niko Salamanca MD [address] [place] [address] [address] [place] [address] Nephrology 01/16/25 documented as of this encounter
--- OUTSIDE RECORDS SUMMARY | 2025-03-01 16:42 | XMS_ITS | Encounter Summary ---
Author Organization [employer] Address [address] 7[address] [place] [address] Care Team Providers Care In Process Inspector Name Role Phone Pedro Pulliam MD Primary Care Provide r Niko Salamanca MD Unavailable [phone] Encounter Details Date Type Department Care Team (Late st Contact Info) Description 03/01/2025 Orders Only GENERIC EXTERNAL DATA [...] Visit [facility] [address] [place] [address] Pedro Pulliam MD [address] [place] [address] documented as of this encounter Procedures Procedure Name Priority Date/Time Associated Diagnosis Comments PROTHROMBIN TIME WHOLE BLD POC Routine 03/01/2025 2:20 PM EDT ~PT, ~INR - ANTI COAG CLINIC Routine 03/01/2025 2:20 PM EDT documented in this encounter Results * (ABNORMAL) PROTHROMBIN TIME WHOLE BLD POC (03/01/2025 2:20 PM EDT) Pathologist [facility] Protime 40.1(H) 11.1 - 13.5 sec [facility] 03/01/2025 2:20 PM EDT 03/01/2025 2:22 PM EDT us Generic External Data Provider LAB BLOOD ORDERAB LES Final Result [facility] [address] [place] [address] [phone] * (ABNORMAL) ~PT, ~INR - ANTI COAG CLINIC (03/01/2025 2:20 PM EDT) Pathologist [facility] Prothrombin Time INR 3.3(H) 0.9 - 1.1 [facility] Comment:METER #: [id number] TERNATIONAL NORMALIZED RATIO (INR) REFERENCE RANGES Reference [...] Provider LAB BLOOD ORDERAB LES Final Result [facility] [address] [place] [address] [phone] documented in this encounter Visit Diagnoses Not on filedocumented in this encounter Additional Health Concerns Assessment Noted Time PHQ-9 Depression Total Score: 0 10/17/20 24 1:50 PM EST documented as of this encounter Care Teams In Process Inspector Relationship Specialty Start Date End Date Pedro Pulliam MD [address] [place] [address] PCP - General Internal Medicine 09/10/14 Niko Salamanca MD [address] [place] [address] Nephrology 01/16/25 documented as of this encounter
== END 2025-03-01 14:47 | disposition home or self-care (01) ==
LOC: HO.ACS 14:12
PROVIDERS: PCP Internal Medicine; Visit Provider Internal Medicine Medical Oncology
DX: Z79.01 Long term (current) use of anticoagulants (principal)

== ENCOUNTER → 2025-03-01 14:12 | Outpatient (BNVA) | payer OTHER, SELFPAY | PROVIDERS: PCP Internal Medicine; Visit Provider Internal Medicine Medical Oncology | DX: I48.0 Paroxysmal atrial fibrillation (principal); Z79.01 Long term (current) use of anticoagulants; Z51.81 Encounter for therapeutic drug level monitoring | CPT/HCPCS: 85610; 99211 ==

== ENCOUNTER 2025-03-09 13:10 | Outpatient (REF) | payer OTHER, SELFPAY ==
--- OUTSIDE RECORDS SUMMARY | 2025-03-09 13:34 | XMS_ITS | Clinical Summary ---
Author Organization [employer] Address [address] [place] [address] Care Team Providers Care Supervisory It Specialist Name Role Phone Pedro Pulliam MD Primary Care Provide r Niko Salamanca MD Unavailable [phone] Allergies No known active allergies Medications [...] pt currently undergoing PT with good results. [facility] care 09/23/2023 Assessment & Plan (10/17/2024 1:55 [...] showed diverticulosis only by Dr connors at [facility] Mixed hyperlipidemia 08/13/2015 09/15/2023 Assessment [...] past by his vascular surgeon at [facility] (Dr Lind) whose recommendation was conservative treatment, he saw NO role for any type of surgical intervention. He recommended to repeat the scan in 1 year and continue to take Asa 81 mg po daily. Pt was last seen by his electrical experimental mechanic at [facility] 09/14/2023 recommended repeat US and ECHO [...] and lasix 20 mg daily prescribed by Model Engine Mechanic. I had recently lowered his Lasix due [...] and lasix 20 mg daily prescribed by Model Engine [employer]ic. I had recently lowered his Lasix due [...] Am and 20 mg PM prescribed by Model Engine [employer]ic. I had recently lowered his Lasix due [...] Am and 20 mg PM prescribed by Model Engine Mechanic. Pt developed some bilateral ankle edema due [...] Furosemide 20 mg po BID prescribed by Model Engine Mechanic. Pt developed some bilateral ankle edema due [...] Furosemide 20 mg po BID prescribed by Model Engine Mechanic. Pt developed some bilateral ankle edema due [...] impression. Plan: Breast center referral at [facility] Assessment & Plan (02/01/2024 1:36 PM EDT): [...] DEPARTMENT Provider, Generic External Data 02/27/2025 Telephone [facility] [address] [place] [address] Pedro Pulliam MD Critical lab 02/27/2025 Orders Only GENERIC EXTERNAL DATA DEPARTMENT Provider, Generic External Data 02/21/2025 Telephone [facility] [address] [place] [address] Sammy, Justa, RN Results; Lab Orders; Referral 02/20/2025 Orders Only [facility] [place] [address] Pedro Pulliam MD Epididymoorchitis (Primary Dx) 02/12/2025 Telephone [facility] [place] [address] Pedro Pulliam MD Paperwork/Forms 02/11/2025 Refill [facility] [place] [address] Pedro Pulliam MD Vitamin D deficiency 02/07/2025 Orders Only GENERIC EXTERNAL DATA DEPARTMENT Provider, Generic External Data 01/16/2025 Telephone [facility] [place] [address] Justa Christianson RN Interoffice Communication 01/15/2025 Telephone [facility] [place] [address] Pedro Pulliam MD Referral 01/11/2025 1:15 PM EST Office Visit [facility] [address] Pedro Pulliam MD Primary hypertension (Primary Dx); KARINA (obstructive sleep apnea); Longstanding persistent atrial fibrillation (CMS/HCC); Gynecomastia; Stage 3b chronic kidney disease (CMS/HCC); Iron deficiency; Mixed hyperlipidemia 01/11/2025 Travel 01/10/2025 Orders Only GENERIC EXTERNAL DATA DEPARTMENT Provider, Generic External Data 01/02/2025 Patient Outreach [facility] [place] [address] Pedro Pulliam MD Pre-visit Planning (SDOH Screening negative and Tobacco screening negative) 12/28/2024 Telephone [facility] [place] [address] Pedro Pulliam MD Chart Prep 12/20/2024 Orders [...] Description 04/17/2025 1:15 PM EDT Office Visit [facility] [address] [place] [address] Pedro Pulliam MD [address] [place] [address] Health Maintenance Due Date Last Done Comments [...] included. Protime 40.1(H) 11.1 - 13.5 sec [facility] 03/01/2025 2:20 PM EDT 03/01/2025 2:22 PM EDT us Generic External Data Provider LAB BLOOD ORDERAB LES Final Result [facility] [address] [place] [address] [phone] * (ABNORMAL) ~PT, ~INR - ANTI COAG CLINIC (03/01/2025 2:20 PM EDT) Only the most recent of5 resultswithin the time period is included. Prothrombin Time INR 3.3(H) 0.9 - 1.1 [facility] Comment:METER #: [id number] TERNATIONAL NORMALIZED RATIO (INR) REFERENCE RANGES Reference [...] ORDERAB LES Final Result Performing Organization Address [facility] Co de Phone Number [facility] [address] [place] [phone] * (ABNORMAL) Prothrombin Time-INR (02/27/2025 1:31 PM EDT) Prothrombin Time 86.4(H) 10.9 - 12.4 SEC [facility] INTERNATIONAL NORM RATIO 7.4(HH) 0.9 - 1.1 [facility] Comment:RESULTS OF INR BURGOS [...] ORDERAB LES Final Result Performing Organization Address [facility] Co de Phone Number [facility] [address] [place] [phone] * (ABNORMAL) Urinalysis, Complete, with Reflex to Culture (02/22/2025 9:20 AM EDT) Color Urine Dark Yellow [facility] Appearance Urine Turbid [facility] PH 5.0 5.0 - 9.0 [facility] Glucose Urine UA Negative Negative mg/dL [facility] Urine Blood Negative Negative [facility] Specific [place] - Urine 1.025 1.005 - 1.025 [facility] Urine Protein 30 (1+)(A) Neg-Trace mg/dL [facility] Urine Ketones 15 Negative mg/dL [facility] Nitrite Urine Negative Negative [facility] Leukocyte Esterase Urine Trace(A) Negative [facility] RBC Urine 0-2 0 - 2 /HPF [facility] Urine WBC 0-5 0 - 5 /HPF [facility] Urine Squamous Epithelial Cell 3-5 0 - 2 /HPF [facility] CALCIUM OXALATE CRYSTAL, UR Present [facility] Urine Bacteria None Seen None Seen [facility] Hyaline Casts, Urine 3-5 0 - 2 /LPF [facility] GRANULAR CASTS (#/HPF) IN URINE Present [facility] Waxy Casts Present [facility] Urine 02/22/2025 9:20 AM EDT 02/22/2025 11:25 AM EDT Narrative [facility] - 02/22/2025 12:09 PM EDT Urine, Clean Catch us Pedro Julian MD LAB URINE ORDERABLES Final Result Performing Organization Address City/State/[facility] Co de Phone Number [facility] [address] [place] [address] [phone] * US Scrotum (02/19/2025 3:57 PM EDT) Anatomical Region Laterality Modality Body Ultrasound 02/19/2025 3:57 PM EDT Narrative 02/19/2025 4:56 PM EDT ? [facility] ?[address] ?[place] [address] ? Ultrasound Report ? Signed ? Patient: Pablo Quinteros,Jamie ?MR#: ?? [id number] ? : 1945 ?Acct:[id number] ? Age/Sex: 79 / M ?ADM Date: 04/14/25 ? Loc: HO.US ? Attending Dr: Niko Salamanca MD ? Ordering Physician: Pedro Webber MD ?? Date of Service: 02/19/25 ?? Procedure(s): US scrotum ?? Accession Number(s): [id number] ? cc: Pedro Webber MD ? EXAMINATION: [...] 02/19/ 1557 ? TD/TT: 02/19/ 1613 ? Bean Roaster: ? Procedure Note Donotuseinterpreter, Image - 02/19/[address] [address] Ultrasound Report Signed Patient: Rik Carpio#: [id number] : 1945Acct:[id number] Age/Sex: 79 / MADM Date: 02/19/25 Loc: HO.US Attending Dr: Niko Salamanca MD Ordering Physician: Pedro Webber MD Date of Service: 02/19/25 Procedure(s): US scrotum Accession Number(s): [id number] cc: Pedro Webber MD EXAMINATION: US SCROTUM [...] 02/19/25 1653 DD/ 1557 TD/TT: 02/19/25 1613 Bean Roaster: us Pedro Julian MD IMG US PROCEDURES Ortiz david Result - Final * US RENAL BI (02/19/2025 3:38 PM EDT) Anatomical Region Laterality Modality Abdomen Ultrasound 02/19/2025 3:38 PM EDT Narrative 02/19/2025 4:52 PM EDT ? [facility] ?[address] ?[place] [address] ? Ultrasound Report ? Signed ? Patient: Jamie Carpio ?MR#: ?? [id number] ? : 1945 ?Acct:[id number] ? Age/Sex: 79 / M ?ADM Date: 02/19/25 ? Loc: HO.US ? Attending Dr: Niko Salamanca MD ? Ordering Physician: Niko Salamanca MD ?? Date of Service: 02/19/25 ?? Procedure(s): US renal BI ?? Accession Number(s): [id number] ? cc: Niko Salamanca MD; Pedro Webber [...] DD/ 1538 ? TD/TT: 02/19/25 1548 ? Bean Roaster: MSM ? Procedure Note Donamarilyster, Image - 02/19/2025 [place] [address] Ultrasound Report Signed Patient: Rik Carpio#: [id number] : 6Acct:[id number] Age/Sex: 79 / MADM Date: 02/19/25 Loc: HO.US Attending Dr: Niko Salamanca MD Ordering Physician: Niko Salamanca MD Date of Service: 02/19/25 Procedure(s): US renal BI Accession Number(s): [id number] cc: Niko Salamanca MD; Pedro Webber MD [...] 02/19/25 1650 DD/ 1538 TD/TT: 02/19/25 1548 Bean Roaster: [place] us [facility] External Provider IMG US PROCEDURES Edited Result - Final * TSH with Reflex to Free T4 (01/16/2025 9:13 AM EDT) TSH reflex Free T4 1.80 0.32 - 4.0 uIU/mL [facility] Blood Venous blood specimen / Unknown 01/16/2025 9:13 AM EDT 01/16/2025 11:29 AM EDT us Pedro Julian MD LAB BLOOD ORDERABLES Final Result [facility] [address] [place] [phone] * hCG, Total, Quantitative (01/16/2025 9:13 AM EDT) HCG Quantitative <2 mIU/mL [facility] Blood Venous blood specimen / Unknown 01/16/2025 9:13 AM EDT 01/16/2025 11:29 AM EDT Pedro Julian MD LAB BLOOD ORDERABLES Final Result Performing Organization Address [facility]/ZIP Co de Phone Number [facility] [address] [place] [phone] [phone] * (ABNORMAL) Lipid Panel, Standard (01/16/2025 9:13 AM EDT) Triglycerides 40 <150 mg/dL [facility] Comment:Desirable Triglyceri de: less than 150 mg/dLBorderline High Triglyceride 150-199 mg/dLHigh Triglyceride: 200-499 mg/dLVery High Triglyceride: greater than or equal to 5OO mg/dL Cholesterol 93 <200 mg/dL [facility] Comment:Desirable Cholestero l: less than 200 mg/dLBorderline High Cholesterol: 200-239 mg/dLHigh Cholesterol: greater than 239 mg/dL LDL Cholesterol Calculated 58 <100 mg/dL [facility] Comment:Desirable LDL: less than 100 mg/dLNear Optimal/Above Optimal LDL: 110- 129 mg/dLBorderline High LDL: 130-159 mg/dLHigh LDL: 160-189 mg/dLVery High LDL: greater than or equal to 190 mg/dL HDL Cholesterol 27(L) >40 mg/dL [facility] Comment:Desirable HDL: great er than 40 mg/dL Note: This HDL assay may give artificially low results in patients with liver disease. Blood Venous blood specimen / Unknown 01/16/2025 9:13 AM EDT 01/16/2025 11:29 AM EDT Pedro Julian MD LAB BLOOD ORDERABLES Final Result Performing Organization Address City/[facility]/ZIP Co de Phone Number [facility] [address] [place] [phone] [phone] * (ABNORMAL) Basic Metabolic Panel (01/16/2025 9:13 AM EDT) Sodium 141 135 - 145 mmol/L [facility] Potassium 4.5 3.3 - 5.1 mmol/L [facility] Chloride 111(H) 96 - 108 mmol/L [facility] Carbon Dioxide 25 22 - 29 mmol/L [facility] Anion Gap 10(L) 12 - 20 [facility] Urea Nitrogen (BUN) 28(H) 9 - 16 mg/dL [facility] Creatinine, Serum 1.90(H) 0.5 - 1.4 mg/dL [facility] Estimated Glomerular Filt Rate 34 [facility] Comment:Chronic Kidney Disea se: Estimated GFR < 60 mL/min/1.88v1Yqflls Kidney Disease: Estimated GFR < 15 mL/min/1.73m2 Glucose 93 60 - 115 mg/dL [facility] Calcium 8.7 8.4 - 10.2 mg/dL [facility] Blood Venous blood specimen / Unknown 01/16/2025 9:13 AM EDT 01/16/2025 11:29 AM EDT Pedro Julian MD LAB BLOOD ORDERABLES Final Result Performing Organization Address City/[facility]/ZIP Co de Phone Number [facility] [address] [place] [phone] * Prolactin (01/16/2025 8:13 AM EDT) Prolactin 9.2 2.0 - 18.0 ng/mL [facility] Comment:THIS TEST WAS PERFOR MED AT:[employer] [place] [phone] SEGURA MD Blood Venous blood specimen / Unknown 01/16/2025 8:13 AM EDT 01/16/2025 11:29 AM EDT Pedro Julian MD LAB BLOOD ORDERABLES Final Result Performing Organization Address City/[facility]/ZIP Co de Phone Number [facility] [address] [place] [phone] * DHEA Sulfate (01/16/2025 8:13 AM EDT) Pathologist [facility] DHEA Sulfate 44 3 - 225 mcg/dL [facility] Comment:THIS TEST WAS PERFOR MED AT:[employer] [address] [phone] SEGURA MD Blood Venous blood specimen / Unknown 01/16/2025 8:13 AM EDT 01/16/2025 11:29 AM EDT Pedro Julian MD LAB BLOOD ORDERABLES Final Result Performing Organization Address [facility]/ZIP Co de Phone Number [facility] [address] [place] [phone] * (ABNORMAL) Estradiol (01/16/2025 8:13 AM EDT) [facility] Estradiol Ultra Sensitive 37(A) < OR = 29 pg/mL [facility] Comment:This test was develo ped and its analytical performancecharacteristics have been determined by [employer].It has not been cleared or approved by the FDA. This assayhas been validated pursuant to the CLIA regulations and isused for clinical purposes.THIS TEST WAS PERFORMED AT:[employer] [id number] [place] [phone] RODRIGUEZ MD,PHD,VIPUL Blood Venous blood specimen / Unknown 01/16/2025 8:13 AM EDT 01/16/2025 11:29 AM EDT Pedro Julian MD LAB BLOOD ORDERABLES Final Result Performing Organization Address [facility]/ZIP Co de Phone Number [facility] [address] [place] [phone] * Testosterone, Free (Dialysis) And Total, MS (01/16/2025 8:13 AM EDT) [facility] Testosterone, Total 498 250 - 1100 ng/dL [facility] Comment:Men with clinically significant hypogonadalsymptoms and testosterone values repeatedly inthe range of the 200-300 ng/dL or less, maybenefit from testosterone treatment afteradequate risk and benefits counseling.For additional information, please refer tohttp://education.[employer]/faq/IkyquWmpvnggfjkkpZLHFOXIPF778(This link is being provided for informational/educational purposes only.)This test was developed and its analytical performancecharacteristics have been determined by [employer]. It hasnot been cleared or approved by the U.S. Food and DrugAdministration. This assay has been validated pursuantto the CLIA regulations and is used for clinicalpurposes. Testosterone, Free 60.8 30.0 - 135.0 pg/mL [facility] Comment:This test was develo ped and its analytical performancecharacteristics have been determined by [employer] [place]. It hasnot been cleared or approved by the U.S. Food and DrugAdministration. This assay has been validated pursuantto the CLIA regulations and is used for clinicalpurposes.THIS TEST WAS PERFORMED AT:[employer]/[id number] [place] [address]KOQOOMCRAMSES CULLEN MD,PHD Blood Venous blood specimen / Unknown 01/16/2025 8:13 AM EDT 01/16/2025 11:29 AM EDT us Pedro Julian MD LAB BLOOD ORDERABLES Final Result [facility] [address] [place], [place] [phone] * (ABNORMAL) LH (01/16/2025 8:13 AM EDT) Lutenizing Hormone 37.7(A) 1.6 - 15.2 mIU/mL [facility] Comment:THIS TEST WAS PERFOR MED AT:[employer] [address] [phone] SEGURA MD Blood Venous blood specimen / Unknown 01/16/2025 8:13 AM EDT 01/16/2025 11:29 AM EDT Pedro Julian MD LAB BLOOD ORDERABLES Final Result Performing Organization Address [facility] Co de Phone Number [facility] [address] [place] [phone] * (ABNORMAL) FSH (01/16/2025 8:13 AM EDT) Follicle Stimulating Hormone 49.9(A) 1.4 - 12.8 mIU/mL [facility] Comment:THIS TEST WAS PERFOR MED AT:[employer] [place] [phone] SEGURA MD Blood Venous blood specimen / Unknown 01/16/2025 8:13 AM EDT 01/16/2025 11:29 AM EDT Pedro Julian MD LAB BLOOD ORDERABLES Final Result Performing Organization Address [facility] Co de Phone Number [facility] [address] [place] [phone] [phone] * BI Mammogram Diagnostic Tomosynthesis Bilateral (04/11/2024 3:15 PM EDT) Anatomical Region Laterality Modality Breast Bilateral Mammography 04/11/2024 3:15 PM EDT Narrative 04/11/2024 4:59 PM EDT ? [facility] ? [address] ?[place] [address] ? Mammography Report ? Signed ? Patient: Pablo Quinteros,Jamie ?MR#: ?? [id number] ? : 1945 ?Acct:[id number] ? Age/Sex: 79 / M ?ADM Date: 06/04/24 ? Loc: HO.MAMMO ? Attending Dr: Pedro Webber MD ? Ordering Physician: Pedro Webber MD ?Resu ?? lts: 2Benign Findings ? Date of Service: 04/11/24 ?Follow Up: 1 Year From Orig ?? inal Mammogram ? Procedure(s): MM tomosynthesis diagnostic BI ?? Accession Number(s): [id number] ? cc: Pedro Webber MD ? EXAMINATION: [...] 1654 ? DD/ 1515 ? TD/TT: ? Bean Roaster: ? Procedure Note Fran, Yazan - 04/11/2024 [facility] [address] [place] [address] Mammography Report Signed Patient: Rik Carpio#: [id number] : 6Acct:[id number] Age/Sex: 79 / MADM Date: 04/11/24 Loc: HO.MAMMO Attending Dr: Pedro Webber MD Ordering Physician: Pedro Webber MDResu lts: 2Benign Findings Date of Service: 04/11/24Follow Up: 1 Year From Orig ina Mammogram Procedure(s): MM tomosynthesis diagnostic BI Accession Number(s): [id number] cc: Pedro Webber MD EXAMINATION: MM DIAGNOSTIC [...] of visit by the technologist. Dictated By: MiguelA Bradley MD Signed By: <Electronically signed by Miguel A Bradley MD in OV> 04/11/24 1654 DD/ 1515 TD/TT: Bean Roaster: Pedro Julian MD IMG BI PROCEDURES Fin al Result * HEPATITIS C AB W/REFL TO HCV RNA, QN, PCR (12/24/2021 8:24 AM EST) HEPATITIS C ANTIBODY NON-REACT SIL NON-REACT SIL Search to Phone LAB SYSTEM INDEX 0.01 <1.00 [facility] Comment: ?? HCV antibody was non-reactive. There is no laboratory ?? evidence of HCV infection. ?? In most cases, no further action is required. However, if recent HCV exposure is suspected, a test for HCV RNA (test code 45334) is suggested. ?? For additional information please refer to http://education.[employer]/faq/PIP44s9 (This link is being provided for informational/ educational purposes only.) ?? 12/24/2021 8:24 AM EST us Pedro Julian MD HISTORICAL/NON ORDERA BLE LABS Final Result [facility] [address] from Last 3 Months or Most Recently Relevant to Health Maintenance Insurance [employer] (HMO D-SNP) [place] [id number] Care Teams Supervisory It Specialist Relationship Specialty Start Date End Date Pedro Pulliam MD [address] [place] [address] PCP - General Internal Medicine 09/10/14 Niko Salamanca MD [address] [place] [address] Drive [address] [place] [address] Nephrology 01/16/25
--- OUTSIDE RECORDS SUMMARY | 2025-03-09 13:34 | XMS_ITS | Encounter Summary ---
Author Organization [employer] Address [address] [place] [address] Care Team Providers Care Leather Belt Shaper Name Role Phone Pedro Pulliam MD Primary Care Provide r Niko Salamanca MD Unavailable [phone] Encounter Details Date Type Department Care Team (Late st Contact Info) Description 02/01/2023 Orders Only [facility] [address] [place] [address] Shira Castano LPN Social History Tobacco Use [...] 1:15 PM EDT Office Visit [facility] [address] [place] [address] Pedro Pulliam MD [address] [place], [place] [phone] documented as of this encounter Visit Diagnoses Not on filedocumented in this encounter Care Teams Leather Belt Shaper Relationship Specialty Start Date End Date Pedro Pulliam MD [address] [place], [place] [phone] PCP - General Internal Medicine 09/10/14 Niko Salamanca MD [address] [place] [phone] Nephrology 01/16/25 documented as of this encounter
--- OUTSIDE RECORDS SUMMARY | 2025-03-09 13:34 | XMS_ITS | Encounter Summary ---
Author Organization [employer] Address [address] [place] [address] Care Team Providers Care Production Recovery Operator Name Role Phone Pedro Pulliam MD Primary Care Provide r Niko Salamanca MD Unavailable [phone] Reason for Visit * Reason Onset Date Comments OV 03/1602/17/2024 Encounter Details Date Type Department Care Team (Late st Contact Info) Description 02/17/2024 Telephone [facility] [address] [place], [place] [phone] Pedro Pulliam MD [address] [place], [place] [phone] OV 03/16 Social History Tobacco Use Types [...] any questions you can contact pt at [phone]. documented in this encounter Plan of Treatment Upcoming Encounters Date Type Department Care Team (Late st Contact Info) Description 04/17/2025 1:15 PM EDT Office Visit [facility] [address] [place] [address] Pedro Pulliam MD [address] [place] [address] documented as of this encounter Visit Diagnoses Not on filedocumented in this encounter Additional Health Concerns Assessment Noted Time PHQ-9 Depression Total Score: 1 09/23/20 23 1:21 PM EST documented as of this encounter Care Teams Production Recovery Operator Relationship Specialty Start Date End Date Pedro Pulliam MD [address] [place] [address] PCP - General Internal Medicine 09/10/14 Niko Salamanca MD [address] [place] [address] [address] [place] [address] Nephrology 01/16/25 documented as of this encounter
--- OUTSIDE RECORDS SUMMARY | 2025-03-09 13:34 | XMS_ITS | Encounter Summary ---
Author Organization [employer] [facility] Address [address] [facility] 7t [place] [address] Care Team Providers Care Food Production Machine Operator Name Role Phone Pedro Pulliam MD Primary Care Provide r Niko Salamanca MD Unavailable [phone] Encounter Details Date Type Department Care Team (Late st Contact Info) Description 02/25/2023 Orders Only [facility] [address] [place] [address] Shanita Pfeiffer LPN Social History Tobacco Use [...] Description 04/17/2025 1:15 PM EDT Office Visit [facility] [address] [place] [phone] Pedro Pulliam MD [address] [place] [address] documented as of this encounter Visit Diagnoses Not on filedocumented in this encounter Care Teams Food Production Machine Operator Relationship Specialty Start Date End Date Pedro Pulliam MD [address] [place] [address] [phone] PCP - General Internal Medicine 09/10/14 Niko Salamanca MD [address] [place] [address] Nephrology 01/16/25 documented as of this encounter
--- OUTSIDE RECORDS SUMMARY | 2025-03-09 13:34 | XMS_ITS | Encounter Summary ---
Author Organization [employer] [facility] Address [address] 7[address] [place] [address] Care Team Providers Care Aircraft Body Repairer Name Role Phone Pedro Pulliam MD Primary Care Provide r Niko Salamanca MD Unavailable Encounter Details Date Type Department Care Team (Late st Contact Info) Description 01/06/2023 Orders Only [facility] [address] [place] [address] Shira Castano LPN Social History Tobacco Use [...] Description 04/17/2025 1:15 PM EDT Office Visit [facility] MEDICINE [address] [place] [address] Pedro Pulliam MD [address] [place], [place] [phone] documented as of this encounter Visit Diagnoses Not on filedocumented in this encounter Care Teams Aircraft Body Repairer Relationship Specialty Start Date End Date Pedro Pulliam MD [address] [place], [place] [phone] PCP - General Internal Medicine 09/10/14 Niko Salamanca MD [address] [place] [address] Nephrology 01/16/25 documented as of this encounter
--- OUTSIDE RECORDS SUMMARY | 2025-03-09 13:34 | XMS_ITS | Encounter Summary ---
Author Organization [employer] Address [address] 7t [place] [address] Care Team Providers Care Stunt Performer Name Role Phone Pedro Pulliam MD Primary Care Provide r Niko Salamanca MD Unavailable [phone] Encounter Details Date Type Department Care Team (Late st Contact Info) Description 05/31/2024 Telephone [facility] MEDICINE [address] [place], [place] [phone] Pedro Pulliam MD [address] [place], [place] [phone] Social History Tobacco Use Types Packs/Day Years [...] line 05/31/24 at 1:21 PM Name of Caller/Facility:[facility] Callback number: [phone] Reason for Call: INR 1.4 no missed [...] 1:15 PM EDT Office Visit [facility] MED[facility]INE [address] [place] [address] Pedro Pulliam MD [address] [place] [address] documented as of this encounter Visit Diagnoses Not on filedocumented in this encounter Additional Health Concerns Assessment Noted Time PHQ-9 Depression Total Score: 1 09/23/20 23 1:21 PM EST documented as of this encounter Care Teams Stunt Performer Relationship Specialty Start Date End Date Pedro Pulliam MD [address] [place] [phone] PCP - General Internal Medicine 09/10/14 Niko Salamanca MD [address] [place] [address] Drive [address] [place] [address] Nephrology 01/16/25 documented as of this encounter
--- OUTSIDE RECORDS SUMMARY | 2025-03-09 13:34 | XMS_ITS | Clinical Summary ---
Author Organization [facility] Location, [facility] Address [address] [address] Care Team Providers Care Video Coordinator Name Role Phone Pedro Snow MD Primary [...] age to complete this topic Care Teams Video Coordinator Relationship Specialty Start Date End Date Pedro Snow MD PCP - General 11/18/20
--- OUTSIDE RECORDS SUMMARY | 2025-03-09 13:34 | XMS_ITS | Clinical Summary ---
Author Organization [facility] Address [address] [place] [address] Care Team Providers Care Heel Attacher Name Role Phone Unavailable Primary Care Provider [...] Documents on File Type Date Recorded Patient Wrapping Machine Tender Expl anation Health Care Decision (hx) 01/10/2020 AD PHILLIP DIRECTIVE
--- OUTSIDE RECORDS SUMMARY | 2025-03-09 13:34 | XMS_ITS | Encounter Summary ---
Author Organization [employer] [facility] Address [address] 7t [place] [address] Care Team Providers Care Corrections Nurse Name Role Phone Pedro Pulliam MD Primary Care Provide r Niko Salamanca MD Unavailable Encounter Details Date Type Department Care Team (Late st Contact Info) Description 05/31/2023 Orders Only [facility] MEDICINE [address] [place] [address] Shanita Pfeiffer LPN Social History Tobacco Use [...] PM EDT Office Visit [facility] MEDICINE [address] [place] [address] Pedro Pulliam MD [address] [place] [address] documented as of this encounter Visit Diagnoses Not on filedocumented in this encounter Care Teams Corrections Nurse Relationship Specialty Start Date End Date Pedro Pulliam MD [address] [place] [phone] PCP - General Internal Medicine 09/10/14 Niko Salamanca MD [address] [place] [address] Nephrology 01/16/25 documented as of this encounter
--- OUTSIDE RECORDS SUMMARY | 2025-03-09 13:34 | XMS_ITS | Encounter Summary ---
Author Organization [employer] [facility] Address [address] 7t [place] [address] Care Team Providers Care Grain Inspector Name Role Phone Pedro Pulliam MD Primary Care Provide r Niko Salamanca MD Unavailable [phone] Reason for Visit * Reason Comments Med Refill Encounter Details Date Type Department Care Team ([facility] st Contact Info) Description 06/02/2024 Refill [facility] MEDICINE [address] [place], [place] [phone] Pedro Pulliam MD [address] [place], [place] [phone] Primary hypertension; Stage 3 chronic kidney disease, [...] Visit [facility] MEDICINE [address] [place] [address] Pedro Pulliam MD [address] [place] [address] documented as of this encounter Visit Diagnoses Diagnosis Primary hypertension Unspecified essential hypertension Stage 3 chronic kidney disease, unspecified whether stage 3a or 3b CKD ([facility]/HCC) Nonrheumatic tricuspid valve regurgitation documented in this encounter Additional Health Concerns Assessment Noted Time PHQ-9 Depression Total Score: 1 09/23/20 23 1:21 PM EST documented as of this encounter Care Teams Grain Inspector Relationship Specialty Start Date End Date Pedro Pulliam MD [address] [place] [address] PCP - General Internal Medicine 09/10/14 Niko Salamanca MD [address] [place] [address] Nephrology 01/16/25 documented as of this encounter
--- OUTSIDE RECORDS SUMMARY | 2025-03-09 13:34 | XMS_ITS | Encounter Summary ---
Author Organization [employer] [facility] Address [address] 7[address] [place] [address] Care Team Providers Care Table Games Dual Rate Supervisor Name Role Phone Pedro Pulliam MD Primary Care Provide r Niko Salamanca MD Unavailable [phone] Reason for Visit * Reason Onset Date Comments Med Refill 2023 Encounter Details Date Type Department Care Team (Late st Contact Info) Description 2023 Refill [facility] MEDICINE [address] [place] [address] Pedro Pulliam MD [address] [place] [address] Atrial fibrillation, unspecified type (CMS/HCC) (Primary Dx) [...] Visit [facility] MEDICINE [address] [place] [address] Pedro Pulliam MD [address] [place] [address] documented as of this encounter Visit Diagnoses Diagnosis Atrial fibrillation, unspecified type (CMS/HCC)- Primary documented in this encounter Care Teams Table Games Dual Rate Supervisor Relationship Specialty Start Date End Date Pedro Pulliam MD [address] [place] [address] PCP - General Internal Medicine 09/10/14 Niko Salamanca MD [address] [place] [address] Drive [address] [place] [address] Nephrology 01/16/25 documented as of this encounter
--- OUTSIDE RECORDS SUMMARY | 2025-03-09 13:34 | XMS_ITS | Encounter Summary ---
Author Organization [employer] Address [address] 7[address] [place] [address] Care Team Providers Care Linotypist Name Role Phone Pedro Pulliam MD Primary Care Provide r Niko Salamanca MD Unavailable [phone] Reason for Visit * Reason Onset Date Comments follow up needed 11/20/2024 Encounter Details Date Type Department Care Team ([facility] st Contact Info) Description 11/20/2024 Telephone [facility] MEDICINE [address] [place], [place] [phone] Pedro Pulliam MD [address] [place], [place] [phone] follow up needed Social History Tobacco Use [...] 11/21/2024 10:42 AM EST TC placed to [facility] office and spoke to their [...] 12:47 PM EST Tc from Randa with [facility] plastic surgery reporting that they saw [...] [facility] MEDICINE [address] [place] [address] Pedro Pulliam MD [address] [place] [address] documented as of this encounter Visit Diagnoses Not on filedocumented in this encounter Additional Health Concerns Assessment Noted Time PHQ-9 Depression Total Score: 0 10/17/20 24 1:50 PM EST documented as of this encounter Care Teams Linotypist Relationship Specialty Start Date End Date Pedro Pulliam MD [address] [place] [address] PCP - General Internal Medicine 09/10/14 Niko Salamanca MD [address] [place] [address] Drive [address] [place] [address] Nephrology 01/16/25 documented as of this encounter
[2025-03-09 16:06] LABS: MANUAL DIFF FLAG NO
[2025-03-09 16:18] LABS: Basophils Percent Auto 0.5 % (0-2); Eosinophils Absolute Auto 0.1 X10*3/uL (0.0-0.4); Eosinophils Percent Auto 3.2 % (0-4); Hematocrit 27.4 % (42.0-52.0); Hemoglobin 8.9 g/dl (14.0-18.0); Imm Gran Abs Auto 0.02 X10*3/uL (0.00-0.03); Imm Gran Pct Auto 0.5 % (0.0-0.4); Lymphocytes Percent Auto 23.9 % (20-40); Mean Corpuscular HGB Conc 32.5 g/dl (31.0-36.0); Mean Corpuscular Hemoglobin 31.2 pg (27.0-33.0); Mean Corpuscular Volume 96.1 fL (80.0-98.0); Mean Platelet Volume 9.4 fL (9.4-12.4); Monocytes Absolute Auto 0.5 X10*3/uL (0.1-1.2); Monocytes Percent Auto 12.5 % (2-11); Neutrophils Absolute Auto 2.6 x10*3/uL (2.0-8.3); Neutrophils Percent Auto 59.4 % (45-73); Platelet Count 177 X10*3/uL (160-400); Red Blood Count 2.85 X10*6/uL (4.60-5.80); Red Cell Distribution Width 13.7 % (11.0-16.0); White Blood Count 4.3 X10*3/uL (4.8-10.8)
[2025-03-09 16:30] LABS: Alanine Aminotransferase 180 U/L (0-40); Albumin Level 3.7 g/dL (3.5-5.0); Anion Gap 10 (12-20); Aspartate Amino Transferase 121 U/L (5-37); Bilirubin Total 0.5 mg/dL (0.0-1.0); Blood Urea Nitrogen 54 mg/dL (9-16); Calcium 8.4 mg/dL (8.4-10.2); Carbon Dioxide 18 mmol/L (22-29); Chloride 113 mmol/L (96-108); Estimated Glomerular Filt Rate 24; Glucose Random 111 mg/dL (60-115); Potassium 5.2 mmol/L (3.3-5.1); Sodium 136 mmol/L (135-145); Total Protein 6.3 g/dL (6.5-8.0)
[2025-03-09 16:50] LABS: Alkaline Phosphatase 97 U/L (39-117)
[2025-03-09 16:58] LABS: Ferritin 1100 ng/mL (20-250)
== END 2025-03-09 13:11 | disposition home or self-care (01) ==
LOC: HO.HHCL 13:10
PROVIDERS: Visit Provider Internal Medicine Medical Oncology
DX: D50.9 Iron deficiency anemia, unspecified (principal)
CPT/HCPCS: 36415; 80053; 82728; 85025

== ENCOUNTER 2025-03-13 13:01 | Outpatient (REF) | payer OTHER, SELFPAY ==
[2025-03-13 15:18] LABS: Appearance Urine Clear; Color Urine Yellow; Glucose Urine UA Negative (Negative); Leukocyte Esterase Urine Negative (Negative); Nitrite Urine Negative (Negative); Urine Blood Negative (Negative); Urine Ketones Negative (Negative); Urine Protein Negative (Neg-Trace)
--- OUTSIDE RECORDS SUMMARY | 2025-03-13 15:34 | XMS_ITS | Encounter Summary ---
Author Organization [employer] Address [address] 7[address] [place] [address] Care Team Providers Care [place] Machine Operator Name Role Phone Pedro Pulliam MD Primary Care Provide r Niko Salamanca MD Unavailable [phone] Encounter Details Date Type Department Care [...] 1:15 PM EDT Office Visit [facility] MEDICINE [address] [place], [place] [phone] Pedro Pulliam MD [address] [place], [place] [phone] documented as of this encounter Procedures Procedure Name Priority Date/Time Associated Diagnosis Comments URINALYSIS WITH REFLEX TO MICROSCOPIC Routine 03/13/2025 2:16 PM EDT PROTHROMBIN TIME WHOLE BLD POC Routine 03/13/2025 1:06 PM EDT ~PT, ~INR - ANTI COAG CLINIC Routine 03/13/2025 1:06 PM EDT documented in this encounter Results * Urinalysis with Reflex to Microscopic (03/13/2025 2:16 PM EDT) Color Urine Yellow [facility] Appearance Urine Clear [facility] PH 5.0 5.0 - 9.0 [facility] Glucose Urine UA Negative Negative mg/dL [facility] Urine Blood Negative Negative [facility] Specific Plato - Urine 1.010 1.005 - 1.025 [facility] Urine Protein Negative Neg-Trace mg/dL [facility] Urine Ketones Negative Negative mg/dL [facility] Nitrite Urine Negative Negative [facility] Leukocyte Esterase Urine Negative Negative [facility] 03/13/2025 2:16 PM EDT 03/13/2025 3:07 PM EDT Generic External Data Provider LAB URINE ORDERAB LES Final Result Performing Organization Address [facility] Co de Phone Number [facility] [address] [place] [phone] * (ABNORMAL) PROTHROMBIN TIME WHOLE BLD POC (03/13/2025 1:06 PM EDT) Protime 26.2(H) 11.1 - 13.5 sec [facility] 03/13/2025 1:06 PM EDT 03/13/2025 1:07 PM EDT Generic External Data Provider LAB BLOOD ORDERAB LES Final Result Performing Organization Address [facility] Number [facility] [address] [place] [phone] * (ABNORMAL) ~PT, ~INR - ANTI COAG CLINIC (03/13/2025 1:06 PM EDT) Prothrombin Time INR 2.2(H) 0.9 - 1.1 [facility] Comment:METER #: [id number] TERNATIONAL NORMALIZED RATIO (INR) REFERENCE RANGES Reference [...] ORDERAB LES Final Result Performing Organization Address [facility] Co de Phone Number [facility] [address] [place] [address] [phone] documented in this encounter Visit Diagnoses Not on filedocumented in this encounter Additional Health Concerns Assessment Noted Time PHQ-9 Depression Total Score: 0 10/17/20 24 1:50 PM EST documented as of this encounter Care Teams [place] Machine Operator Relationship Specialty Start Date End Date Pedro Pulliam MD [address] [place] [address] PCP - General Internal Medicine 09/10/14 Niko Salamanca MD [address] [place] [address] Drive [address] [place] [address] Nephrology 01/16/25 documented as of this encounter
--- OUTSIDE RECORDS SUMMARY | 2025-03-13 15:34 | XMS_ITS | Clinical Summary ---
Author Organization [employer] Address [address] [place] [address] Care Team Providers Care Machine Technician Name Role Phone Pedro Pulliam MD Primary Care Provide r Niko Salamanca MD Unavailable [phone] Allergies No known active allergies Medications [...] pt currently undergoing PT with good results. [facility] 09/23/2023 Assessment & Plan (10/17/2024 [...] showed diverticulosis only by Dr connors at [facility] Mixed hyperlipidemia 08/13/2015 09/15/2023 Assessment & Plan [...] the past by his vascular surgeon at [facility] (Dr Lind) whose recommendation was conservative treatment, he saw NO role for any type of surgical intervention. He recommended to repeat the scan in 1 year and continue to take Asa 81 mg po daily. Pt was last seen by his mold puller at [facility] 09/14/2023 recommended repeat US and ECHO [...] and lasix 20 mg daily prescribed by [employer] L[employer]. I had recently lowered his Lasix due [...] and lasix 20 mg daily prescribed by [employer]. I had recently lowered his Lasix due [...] Am and 20 mg PM prescribed by [employer] L[employer]. I had recently lowered his Lasix due [...] Am and 20 mg PM prescribed by [employer] Libr[employer]. Pt developed some bilateral ankle edema due [...] Furosemide 20 mg po BID prescribed by [employer] Libr[employer]. Pt developed some bilateral ankle edema due [...] Furosemide 20 mg po BID prescribed by [employer] Libr[employer]. Pt developed some bilateral ankle edema due [...] clinical impression. Plan: Breast center referral at [facility] Assessment & Plan (02/01/2024 1:36 PM EDT): [...] DEPARTMENT Provider, Generic External Data 02/27/[address] [facility] PEDIATRICS [address] [place] [phone] Pedro Pulliam MD Critical lab 02/27/2025 Orders Only GENERIC EXTERNAL DATA DEPARTMENT Provider, Generic External Data 02/21/[address] [facility] MEDICINE [address] [place] [address] Justa Christianson, RN Results; Lab Orders; Referral 02/20/2025 Orders Only [facility] [address] Pedro Pulliam MD Epididymoorchitis (Primary Dx) 02/12/[address] [address] Pedro Pulliam MD Paperwork/Forms 02/11/[address] [address] Pedro Pulliam MD Vitamin D deficiency 02/07/2025 Orders Only GENERIC EXTERNAL DATA DEPARTMENT Provider, Generic External Data 01/16/2025 Telephone [facility] [place] [address] Justa Christianson, RN Interoffice Communication 01/15/[address] [address] Pedro Pulliam MD Referral 01/11/2025 1:15 PM EST Office Visit [facility] [place] [address] Pedro Pulliam MD Primary hypertension (Primary Dx); KARINA (obstructive sleep apnea); Longstanding persistent atrial fibrillation (CMS/HCC); Gynecomastia; Stage 3b chronic kidney disease (CMS/HCC); Iron deficiency; Mixed hyperlipidemia 01/11/2025 Travel 01/10/2025 Orders Only GENERIC EXTERNAL DATA DEPARTMENT Provider, Generic External Data 01/02/2025 Patient Outreach [facility] [place] [address] Pedro Pulliam MD Pre-visit Planning (SDOH Screening negative and Tobacco screening negative) 12/28/2024 Telephone [facility] [place] [address] Pedro Pulliam MD Chart Prep 12/20/2024 Orders [...] 1:15 PM EDT Office Visit [facility] MEDICINE [address] [place] [address] Pedro Pulliam MD [address] [place] [address] Health Maintenance Due Date Last Done Comments [...] Recently Relevant to Health Maintenance Results * Urinalysis with Reflex to Microscopic (03/13/2025 2:16 PM EDT) Color Urine Yellow [facility] Appearance Urine Clear [facility] PH 5.0 5.0 - 9.0 [facility] Glucose Urine UA Negative Negative mg/dL [facility] Urine Blood Negative Negative [facility] Specific [place] - Urine 1.010 1.005 - 1.025 [facility] Urine Protein Negative Neg-Trace mg/dL [facility] Urine Ketones Negative Negative mg/dL [facility] Nitrite Urine Negative Negative [facility] Leukocyte Esterase Urine Negative Negative [facility] 03/13/2025 2:16 PM EDT 03/13/2025 3:07 PM EDT Generic External Data Provider LAB URINE ORDERAB LES Final Result Performing Organization Address [facility] de Phone Number [facility] [address] [place] [phone] * (ABNORMAL) PROTHROMBIN TIME WHOLE BLD POC (03/13/2025 1:06 PM EDT) Only the most recent of6 resultswithin the time period is included. Protime 26.2(H) 11.1 - 13.5 sec [facility] 03/13/2025 1:06 PM EDT 03/13/2025 1:07 PM EDT Generic External Data Provider LAB BLOOD ORDERAB LES Final Result Performing Organization Address [facility] [address] [place] [phone] * (ABNORMAL) ~PT, ~INR - ANTI COAG CLINIC (03/13/2025 1:06 PM EDT) Only the most recent of6 resultswithin the time period is included. Prothrombin Time INR 2.2(H) 0.9 - 1.1 [facility] Comment:METER #: [id number] TERNATIONAL NORMALIZED RATIO (INR) REFERENCE RANGES Reference [...] ORDERAB LES Final Result Performing Organization Address [facility] de Phone Number [facility] [address] [place] [phone] * (ABNORMAL) Prothrombin Time-INR (02/27/2025 1:31 PM EDT) [facility] Prothrombin Time 86.4(H) 10.9 - 12.4 SEC [facility] INTERNATIONAL NORM RATIO 7.4(HH) 0.9 - 1.1 [facility] Comment:RESULTS OF INR BURGOS D TO [...] Provider LAB BLOOD ORDERAB LES Final Result [facility] [address] [place] [address] [phone] * (ABNORMAL) Urinalysis, Complete, with Reflex to Culture (02/22/2025 9:20 AM EDT) Pathologist [facility] Color Urine Dark Yellow [facility] Appearance Urine Turbid [facility] PH 5.0 5.0 - 9.0 [facility] Glucose Urine UA Negative Negative mg/dL [facility] Urine Blood Negative Negative [facility] Specific [place] - Urine 1.025 1.005 - 1.025 [facility] Urine Protein 30 (1+)(A) Neg-Trace mg/dL [facility] Urine Ketones 15 Negative mg/dL [facility] Nitrite Urine Negative Negative [facility] Leukocyte Esterase Urine Trace(A) Negative [facility] RBC Urine 0-2 0 - 2 /HPF [facility] Urine WBC 0-5 0 - 5 /HPF [facility] Urine Squamous Epithelial Cell 3-5 0 - 2 /HPF [facility] CALCIUM OXALATE CRYSTAL, UR Present [facility] Urine Bacteria None Seen None Seen [facility] Hyaline Casts, Urine 3-5 0 - 2 /LPF [facility] GRANULAR CASTS (#/HPF) IN URINE Present [facility] Waxy Casts Present [facility] Urine 02/22/2025 9:20 AM EDT 02/22/2025 11:25 AM EDT Narrative [facility] - 02/22/2025 12:09 PM EDT Urine, Clean Catch Pedro Julian MD LAB URINE ORDERABLES Final Result [facility] [address] [place] [address] [phone] * US Scrotum (02/19/2025 3:57 PM EDT) Anatomical Region Laterality Modality Body Ultrasound 02/19/2025 3:57 PM EDT Narrative 02/19/2025 4:56 PM EDT ? [facility] ?[address] ?[place] [address] ? Ultrasound Report ? Signed ? Patient: Pablo Quinteros,Jamie ?MR#: ?? [id number] ? : 1945 ?Acct:[id number] ? Age/Sex: 79 / M ?ADM Date: 04/14/25 ? Loc: HO.US ? Attending Dr: Niko Salamanca MD ? Ordering Physician: Pedro Webber MD ?? Date of Service: 02/19/25 ?? Procedure(s): US scrotum ?? Accession Number(s): [id number] ? cc: Pedro Webber MD ? EXAMINATION: [...] DD/ 1557 ? TD/TT: 02/19/25 1613 ? Colors Custodian: ? Procedure Note Fran, Image - 02/19/[address] [address] Ultrasound Report Signed Patient: Rik Carpio#: [id number] : 6Acct:[id number] Age/Sex: 79 / MADM Date: 02/19/25 Loc: HO. Attending Dr: Niko Salamanca MD Ordering Physician: Pedro Webber MD Date of Service: 02/19/25 Procedure(s): US scrotum Accession Number(s): [id number] cc: Pedro Webber MD EXAMINATION: US SCROTUM [...] 02/19/25 1653 DD/ 1557 TD/TT: 02/19/25 1613 Colors Custodian: us Pedro Julian MD IMG US PROCEDURES Ortiz david Result - Final * US RENAL BI (02/19/2025 3:38 PM EDT) Anatomical Region Laterality Modality Abdomen Ultrasound 02/19/2025 3:38 PM EDT Narrative 02/19/2025 4:52 PM EDT ? [facility] ?[address] ?[place] [address] ? Ultrasound Report ? Signed ? Patient: Pablo Quinteros,Jamie ?MR#: ?? [id number] ? : 1945 ?Acct:[id number] ? Age/Sex: 79 / M ?ADM Date: 02/19/25 ? Loc: HO.US ? Attending Dr: Niko Salamanca MD ? Ordering Physician: Niko Salamanca MD ?? Date of Service: 02/19/25 ?? Procedure(s): US renal BI ?? Accession Number(s): [id number] ? cc: Niko Salamanca MD; Pedro Webber [...] DD/ 1538 ? TD/TT: 02/19/25 1548 ? Colors Custodian: MSM ? Procedure Note Donotuseinterpreter, Image - 02/19/[address] [address] Ultrasound Report Signed Patient: Jaime CarpioR#: [id number] : 6Acct:[id number] Age/Sex: 79 / MADM Date: 02/19/25 Loc: HO.US Attending Dr: Niko Salamanca MD Ordering Physician: Niko Salamanca MD Date of Service: 02/19/25 Procedure(s): US renal BI Accession Number(s): [id number] cc: Niko Salamanca MD; Pedro Webber MD [...] 02/19/25 1650 DD/ 1538 TD/TT: 02/19/25 1548 Colors Custodian: CARLOTA [facility] External Provider IMG US PROCEDURES Edited Result - Final * TSH with Reflex to Free T4 (01/16/2025 9:13 AM EDT) TSH reflex Free T4 1.80 0.32 - 4.0 uIU/mL [facility] Blood Venous blood specimen / Unknown 01/16/2025 9:13 AM EDT 01/16/2025 11:29 AM EDT Pedro Julian MD LAB BLOOD ORDERABLES Final Result Performing Organization Address City/[facility]/ZIP Co de Phone Number [facility] [address] [place] [phone] * hCG, Total, Quantitative (01/16/2025 9:13 AM EDT) HCG Quantitative <2 mIU/mL [facility] Blood Venous blood specimen / Unknown 01/16/2025 9:13 AM EDT 01/16/2025 11:29 AM EDT Pedro Julian MD LAB BLOOD ORDERABLES Final Result Performing Organization Address City/[facility]/ZIP Co de Phone Number [facility] [address] [place] [phone] * (ABNORMAL) Lipid Panel, Standard (01/16/2025 9:13 AM EDT) Pathologist [facility] Triglycerides 40 <150 mg/dL [facility] Comment:Desirable Triglyceri de: less than 150 mg/dLBorderline High Triglyceride 150-199 mg/dLHigh Triglyceride: 200-499 mg/dLVery High Triglyceride: greater than or equal to 5OO mg/dL Cholesterol 93 <200 mg/dL [facility] Comment:Desirable Cholestero l: less than 200 mg/dLBorderline High Cholesterol: 200-239 mg/dLHigh Cholesterol: greater than 239 mg/dL LDL Cholesterol Calculated 58 <100 mg/dL [facility] Comment:Desirable LDL: less than 100 mg/dLNear Optimal/Above Optimal LDL: 110- 129 mg/dLBorderline High LDL: 130-159 mg/dLHigh LDL: 160-189 mg/dLVery High LDL: greater than or equal to 190 mg/dL HDL Cholesterol 27(L) >40 mg/dL [facility] Comment:Desirable HDL: great er than 40 mg/dL Note: This HDL assay may give artificially low results in patients with liver disease. Blood Venous blood specimen / Unknown 01/16/2025 9:13 AM EDT 01/16/2025 11:29 AM EDT us Pedro Julian MD LAB BLOOD ORDERABLES Final Result [facility] [address] [place] [phone] * (ABNORMAL) Basic Metabolic Panel (01/16/2025 9:13 AM EDT) Sodium 141 135 - 145 mmol/L [facility] Potassium 4.5 3.3 - 5.1 mmol/L [facility] Chloride 111(H) 96 - 108 mmol/L [facility] Carbon Dioxide 25 22 - 29 mmol/L [facility] Anion Gap 10(L) 12 - 20 [facility] Urea Nitrogen (BUN) 28(H) 9 - 16 mg/dL [facility] Creatinine, Serum 1.90(H) 0.5 - 1.4 mg/dL [facility] Estimated Glomerular Filt Rate 34 [facility] Comment:Chronic Kidney Disea se: Estimated GFR < 60 mL/min/1.96u5Xgwlje Kidney Disease: Estimated GFR < 15 mL/min/1.73m2 Glucose 93 60 - 115 mg/dL [facility] Calcium 8.7 8.4 - 10.2 mg/dL [facility] Blood Venous blood specimen / Unknown 01/16/2025 9:13 AM EDT 01/16/2025 11:29 AM EDT Pedro Julian MD LAB BLOOD ORDERABLES Final Result Performing Organization Address City/[facility]/ZIP Co de Phone Number [facility] [address] [place] [phone] * Prolactin (01/16/2025 8:13 AM EDT) Prolactin 9.2 2.0 - 18.0 ng/mL [facility] Comment:THIS TEST WAS PERFOR MED AT:[facility] [place] [phone] SEGURA MD Blood Venous blood specimen / Unknown 01/16/2025 8:13 AM EDT 01/16/2025 11:29 AM EDT Pedro Julian MD LAB BLOOD ORDERABLES Final Result Performing Organization Address City/[facility]/ZIP Co de Phone Number [facility] [address] [place] [phone] * DHEA Sulfate (01/16/2025 8:13 AM EDT) DHEA Sulfate 44 3 - 225 mcg/dL [facility] Comment:THIS TEST WAS PERFOR MED AT:[facility] [place] [phone] SEGURA MD Blood Venous blood specimen / Unknown 01/16/2025 8:13 AM EDT 01/16/2025 11:29 AM EDT Pedro Julian MD LAB BLOOD ORDERABLES Final Result Performing Organization Address [facility] Co de Phone Number [facility] [address] [place] [phone] * (ABNORMAL) Estradiol (01/16/2025 8:13 AM EDT) Estradiol Ultra Sensitive 37(A) < OR = 29 pg/mL [facility] Comment:This test was develo ped and its analytical performancecharacteristics have been determined by [employer].It has not been cleared or approved by the FDA. This assayhas been validated pursuant to the CLIA regulations and isused for clinical purposes.THIS TEST WAS PERFORMED AT:[facility] [id number] [place] [place] [address]TUUGSPHILLIP RODRIGUEZ MD,PHD,VIPUL Blood Venous blood specimen / Unknown 01/16/2025 8:13 AM EDT 01/16/2025 11:29 AM EDT Pedro Julian MD LAB BLOOD ORDERABLES Final Result Performing Organization Address [facility] Co de Phone Number [facility] [address] [place] [phone] * Testosterone, Free (Dialysis) And Total, MS (01/16/2025 8:13 AM EDT) Pathologist [facility] Testosterone, Total 498 250 - 1100 ng/dL [facility] Comment:Men with clinically significant hypogonadalsymptoms and testosterone values repeatedly inthe range of the 200-300 ng/dL or less, maybenefit from testosterone treatment afteradequate risk and benefits counseling.For additional information, please refer tohttp://education.[employer]/faq/KecmmUqwsbhxcxoqlQTIVBZRZD911(This link is being provided for informational/educational purposes only.)This test was developed and its analytical performancecharacteristics have been determined by [facility]. It hasnot been cleared or approved by the U.S. Food and DrugAdministration. This assay has been validated pursuantto the CLIA regulations and is used for clinicalpurposes. Testosterone, Free 60.8 30.0 - 135.0 pg/mL [facility] Comment:This test was develo ped and its analytical performancecharacteristics have been determined by [employer] [place], [place]. It hasnot been cleared or approved by the U.S. Food and DrugAdministration. This assay has been validated pursuantto the CLIA regulations and is used for clinicalpurposes.THIS TEST WAS PERFORMED AT:[facility] [place] [address]XGVDKNIRAMSES CULLEN MD,PHD Blood Venous blood specimen / Unknown 01/16/2025 8:13 AM EDT 01/16/2025 11:29 AM EDT Pedro Julian MD LAB BLOOD ORDERABLES Final Result [facility] [address] [place] [phone] * (ABNORMAL) LH (01/16/2025 8:13 AM EDT) Lutenizing Hormone 37.7(A) 1.6 - 15.2 mIU/mL [facility] Comment:THIS TEST WAS PERFOR MED AT:[facility] [address] [phone] SEGURA MD Blood Venous blood specimen / Unknown 01/16/2025 8:13 AM EDT 01/16/2025 11:29 AM EDT Pedro Julian MD LAB BLOOD ORDERABLES Final Result [facility] [address] [place] [phone] * (ABNORMAL) FSH (01/16/2025 8:13 AM EDT) Follicle Stimulating Hormone 49.9(A) 1.4 - 12.8 mIU/mL [facility] Comment:THIS TEST WAS PERFOR MED AT:[facility] [place] [phone] SEGURA MD Blood Venous blood specimen / Unknown 01/16/2025 8:13 AM EDT 01/16/2025 11:29 AM EDT us Pedro Julian MD LAB BLOOD ORDERABLES Final Result [facility] [address] [place] [phone] * BI Mammogram Diagnostic Tomosynthesis Bilateral (04/11/2024 3:15 PM EDT) Anatomical Region Laterality Modality Breast Bilateral Mammography 04/11/2024 3:15 PM EDT Narrative 04/11/2024 4:59 PM EDT ? [facility] [place] ? [address] ?[place] [address] ? Mammography Report ? Signed ? Patient: Pablo Quinteros,Jamie ?MR#: ?? [id number] ? : 1945 ?Acct:[id number] ? Age/Sex: 79 / M ?ADM Date: //24 ? Loc: HO.MAMMO ? Attending Dr: Pedro Webber MD ? Ordering Physician: Pedro Webber MD ?Resu ?? lts: 2Benign Findings ? Date of Service: 04/11/24 ?Follow Up: 1 Year From Orig ?? inal Mammogram ? Procedure(s): MM tomosynthesis diagnostic BI ?? Accession Number(s): [id number] ? cc: Pedro Webber MD ? EXAMINATION: [...] 1654 ? DD/ 1515 ? TD/TT: ? Colors Custodian: ? Procedure Note Fran, Image - 04/11/2024 [facility] [address] [place] [address] Mammography Report Signed Patient: Jaime CarpioR#: [id number] : 6Acct:[id number] Age/Sex: 79 / MADM Date: 04/11/24 Loc: ALVINA Attending Dr: Pedro Webber MD Ordering Physician: Pedro Webberesu lts: 2Benign Findings Date of Service: 04/11/24Follow Up: 1 Year From Orig inal Mammogram Procedure(s): MM tomosynthesis diagnostic BI Accession Number(s): [id number] cc: Pedro Webber MD EXAMINATION: MM DIAGNOSTIC [...] in OV> 04/11/24 1654 DD/ 1515 TD/TT: Colors Custodian: Pedro Julian MD IMG BI PROCEDURES Fin al Result * HEPATITIS C AB W/REFL TO HCV RNA, QN, PCR (12/24/2021 8:24 AM EST) HEPATITIS C ANTIBODY NON-REACT SIL NON-REACT SIL [facility] INDEX 0.01 <1.00 [facility] Comment: ?? HCV antibody was non-reactive. There is no laboratory ?? evidence of HCV infection. ?? In most cases, no further action is required. However, if recent HCV exposure is suspected, a test for HCV RNA (test code 44763) is suggested. ?? For additional information please refer to http://education.[employer]/faq/RLE67j3 (This link is being provided for informational/ educational purposes only.) ?? 12/24/2021 8:24 AM EST us Pedro Julian MD HISTORICAL/NON ORDERA BLE LABS Final Result [facility] [address] from Last 3 Months or Most Recently Relevant to Health Maintenance Insurance [facility] [employer] (HMO D-SNP) [employer] [place] [id number] Care Teams Machine Technician Relationship Specialty Start Date End Date Pedro Pulliam MD [address] [place] [phone] PCP - General Internal Medicine 09/10/14 Niko Salamanca MD [address] [place] [address] Drive [address] [place] [address] Nephrology 01/16/25
--- OUTSIDE RECORDS SUMMARY | 2025-03-13 15:34 | XMS_ITS | Clinical Summary ---
Author Organization [employer] [facility] [facility] hospitalCir[facility] Facility Address [address] [address] Care Team Providers Care Sugar House Supervisor Name Role Phone Pedro Snow MD Primary [...] age to complete this topic Care Teams Sugar House Supervisor Relationship Specialty Start Date End Date Pedro Snow MD PCP - General 11/18/20
--- OUTSIDE RECORDS SUMMARY | 2025-03-13 15:34 | XMS_ITS | Encounter Summary ---
Author Organization [facility] Address [address] [place] [address] 7t [place] [address] Care Team Providers Care Reproductive Endocrinologist Name Role Phone Pedro Pulliam MD Primary Care Provide r Niko Salamanca MD Unavailable [phone] Encounter Details Date Type Department Care Team (Late st Contact Info) Description 02/25/2023 Orders Only [facility] MED[facility] [address] [place] [phone] Shanita Pfeiffer LPN Social History Tobacco Use [...] Description 04/17/2025 1:15 PM EDT Office Visit [facility] [address] [place] [phone] Pedro Pulliam MD [address] [place] [address] documented as of this encounter Visit Diagnoses Not on filedocumented in this encounter Care Teams Reproductive Endocrinologist Relationship Specialty Start Date End Date Pedro Pulliam MD [address] [place] [phone] PCP - General Internal Medicine 11/3/14 Niko Salamanca MD [address] [place] [address] Nephrology 01/16/25 documented as of this encounter
--- OUTSIDE RECORDS SUMMARY | 2025-03-13 15:34 | XMS_ITS | Encounter Summary ---
Author Organization [employer] Address [address] [place] [address] Care Team Providers Care Department Store Manager Name Role Phone Pedro Pulliam MD Primary Care Provide r Niko Salamanca MD Unavailable [phone] Reason for Visit * Reason Onset Date Comments follow up needed 11/20/2024 Encounter Details Date Type Department Care Team ([facility] st Contact Info) Description 11/20/2024 Telephone [facility] [address] [place], [place] [phone] Pedro Pulliam MD [address] [place], [place] [phone] follow up needed Social History Tobacco Use [...] 11/21/2024 10:42 AM EST TC placed to [facility] and spoke to their [...] 12:47 PM EST Tc from Randa with [facility] plastic [facility] reporting that they saw [...] 1:15 PM EDT Office Visit [facility] [address] [place] [address] Pedro Pulliam MD [address] [place] [address] documented as of this encounter Visit Diagnoses Not on filedocumented in this encounter Additional Health Concerns Assessment Noted Time PHQ-9 Depression Total Score: 0 10/17/20 1:50 PM EST documented as of this encounter Care Teams Department Store Manager Relationship Specialty Start Date End Date Pedro Pulliam MD [address] [place] [address] PCP - General Internal Medicine 09/10/14 Niko Salamanca MD [address] [place] [address] Drive [address] [place] [address] Nephrology 01/16/25 documented as of this encounter
--- OUTSIDE RECORDS SUMMARY | 2025-03-13 15:34 | XMS_ITS | Encounter Summary ---
Author Organization [employer] Address [address] [place] [address] Care Team Providers Care Staff Nurse Icu Resource Team Name Role Phone Pedro Pulliam MD Primary Care Provide r Niko Salamanca MD Unavailable [phone] Encounter Details Date Type Department Care Team ([facility] st Contact Info) Description 05/31/2024 Telephone [facility] MEDICINE [address] [place], [place] [phone] Pedro Pulliam MD [address] [place], [place] [phone] Social History Tobacco Use Types Packs/Day Years [...] line 05/31/24 at 1:21 PM Name of Caller/Facility:[facility] Callback number: [phone] Reason for Call: INR 1.4 no missed [...] Description 04/17/2025 1:15 PM EDT Office Visit [facility] MEDICINE [address] [place] [address] Pedro Pulliam MD [address] [place] [address] documented as of this encounter Visit Diagnoses Not on filedocumented in this encounter Additional Health Concerns Assessment Noted Time PHQ-9 Depression Total Score: 1 09/23/20 23 1:21 PM EST documented as of this encounter Care Teams Staff Nurse Icu Resource Team Relationship Specialty Start Date End Date Pedro Pulliam MD [address] [place] [address] PCP - General Internal Medicine 09/10/14 Niko Salamanca MD [address] [place] [address] [place] [address] Nephrology 01/16/25 documented as of this encounter
--- OUTSIDE RECORDS SUMMARY | 2025-03-13 15:34 | XMS_ITS | Encounter Summary ---
Author Organization [employer] Address [address] [place] [address] Care Team Providers Care Generation Technician Name Role Phone Pedro Pulliam MD Primary Care Provide r Niko Salamanca MD Unavailable [phone] Reason for Visit * Reason Comments Med Refill Encounter Details Date Type Department Care Team (Late st Contact Info) Description 06/02/2024 Refill [facility] MEDICINE [address] [place], [place] [phone] Pedro Pulliam MD 230 [place], [place] [phone] Primary hypertension; Stage 3 chronic kidney disease, [...] Description 04/17/2025 1:15 PM EDT Office Visit [facility] MEDICINE [address] [place] [address] Pedro Pulliam MD [address] [place] [address] documented as of this encounter Visit Diagnoses Diagnosis Primary hypertension Unspecified essential hypertension Stage 3 chronic kidney disease, unspecified whether stage 3a or 3b CKD ([facility]/HCC) Nonrheumatic tricuspid valve regurgitation documented in this encounter Additional Health Concerns Assessment Noted Time PHQ-9 Depression Total Score: 1 09/23/20 23 1:21 PM EST documented as of this encounter Care Teams Generation Technician Relationship Specialty Start Date End Date Pedro Pulliam MD [address] [place] [address] PCP - General Internal Medicine 09/10/14 Niko Salamanca MD [address] [place] [address] Nephrology 01/16/25 documented as of this encounter
--- OUTSIDE RECORDS SUMMARY | 2025-03-13 15:34 | XMS_ITS | Encounter Summary ---
Author Organization [employer] Address [address] [place] [address] Care Team Providers Care News Writer Name Role Phone Pedro Pulliam MD Primary Care Provide r Niko Salamanca MD Unavailable [phone] Reason for Visit * Reason Onset Date Comments OV 03/1602/17/2024 Encounter Details Date Type Department Care Team (Late st Contact Info) Description 02/17/2024 Telephone [facility] MEDICINE [address] [place], [place] [phone] Pedro Pulliam MD 230 [place], [place] [phone] OV 03/16 Social History Tobacco Use Types [...] any questions you can contact pt at [phone]. documented in this encounter Plan of Treatment Upcoming Encounters Date Type Department Care Team (Late st Contact Info) Description 04/17/2025 1:15 PM EDT Office Visit [facility] MEDICINE [address] [place] [address] Pedor Pulliam MD [address] [place] [address] documented as of this encounter Visit Diagnoses Not on filedocumented in this encounter Additional Health Concerns Assessment Noted Time PHQ-9 Depression Total Score: 1 09/23/20 23 1:21 PM EST documented as of this encounter Care Teams News Writer Relationship Specialty Start Date End Date Pedro Pulliam MD [address] [place] [address] PCP - General Internal Medicine 09/10/14 Niko Salamanca MD [address] [place] [address] Nephrology 01/16/25 documented as of this encounter
--- OUTSIDE RECORDS SUMMARY | 2025-03-13 15:34 | XMS_ITS | Clinical Summary ---
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
--- OUTSIDE RECORDS SUMMARY | 2025-03-13 15:34 | XMS_ITS | Encounter Summary ---
Author Organization [employer] [facility] Address [address] [place] [address] 7t [place] [address] Care Team Providers Care Therapist Rrt Name Role Phone Pedro Pulliam MD Primary Care Provide r Niko Salamanca MD Unavailable [phone] Encounter Details Date Type Department Care Team (Late st Contact Info) Description 05/31/2023 Orders Only [facility] MEDICINE [address] [place] [address] Shanita Pfeiffer LPN Social History Tobacco Use [...] Office Visit [facility] MEDICINE [address] [place] [address] Pedro Pulliam MD [address] [place] [address] documented as of this encounter Visit Diagnoses Not on filedocumented in this encounter Care Teams Therapist Rrt Relationship Specialty Start Date End Date Pedro Pulliam MD [address] [place] [address] PCP - General Internal Medicine 11/3/14 Niko Salamanca MD [address] [place] [address] Nephrology 01/16/25 documented as of this encounter
--- OUTSIDE RECORDS SUMMARY | 2025-03-13 15:34 | XMS_ITS | Encounter Summary ---
Author Organization [employer] Address [address] [facility] 7t [place] [address] Care Team Providers Care Safety Deposit Clerk Name Role Phone Pedro Pulliam MD Primary Care Provide r Niko Salamanca MD Unavailable [phone] Encounter Details Date Type Department Care Team (Late st Contact Info) Description 02/01/2023 Orders Only [facility] [address] [place] [address] Shira Castano LPN Social History Tobacco Use [...] Description 04/17/2025 1:15 PM EDT Office Visit [facility] MEDICINE [address] [place] [address] Pedro Pulliam MD [address] [place] [address] documented as of this encounter Visit Diagnoses Not on filedocumented in this encounter Care Teams Safety Deposit Clerk Relationship Specialty Start Date End Date Pedro Pulliam MD [address] [place], [place] [phone] PCP - General Internal Medicine 09/10/14 Niko Salamanca MD [address] [place] [address] Nephrology 01/16/25 documented as of this encounter
--- OUTSIDE RECORDS SUMMARY | 2025-03-13 15:34 | XMS_ITS | Encounter Summary ---
Author Organization [employer] Address [address] [facility] 7t [place] [address] Care Team Providers Care Rn Home Care Name Role Phone Pedro Pulliam MD Primary Care Provide r Niko Salamanca MD Unavailable [phone] Encounter Details Date Type Department Care Team (Late st Contact Info) Description 01/06/2023 Orders Only [facility] [address] [place] [address] Shira Castano LPN Social History Tobacco Use [...] Description 04/17/2025 1:15 PM EDT Office Visit [facility] MEDICINE [address] [place] [address] Pedro Pulliam MD [address] [place] [address] documented as of this encounter Visit Diagnoses Not on filedocumented in this encounter Care Teams Rn Home Care Relationship Specialty Start Date End Date Pedro Pulliam MD [address] [place], [place] [phone] PCP - General Internal Medicine 09/10/14 Niko Salamanca MD [address] [place] [address] Nephrology 01/16/25 documented as of this encounter
--- OUTSIDE RECORDS SUMMARY | 2025-03-13 15:34 | XMS_ITS | Encounter Summary ---
Author Organization [employer] Address [address] [facility] 7t [place] [address] Care Team Providers Care Mental Health Associate Name Role Phone Pedro Pulliam MD Primary Care Provide r Niko Salamanca MD Unavailable [phone] Reason for Visit * Reason Onset Date Comments Med Refill 2023 Encounter Details Date Type Department Care Team (Late st Contact Info) Description 2023 Refill [facility] MEDICINE [address] [place] [address] Pedro Pulliam MD [address] [place] [address] Atrial fibrillation, unspecified type (CMS/HCC) (Primary Dx) [...] 1:15 PM EDT Office Visit [facility] MEDICINE [address] [place] [address] Pedro Pulliam MD [address] [place] [address] documented as of this encounter Visit Diagnoses Diagnosis Atrial fibrillation, unspecified type (CMS/HCC)- Primary documented in this encounter Care Teams Mental Health Associate Relationship Specialty Start Date End Date Pedro Pullaim MD [address] [place] [address] PCP - General Internal Medicine 09/10/14 Niko Salamanca MD [address] [place] [address] Drive [address] [place] [address] Nephrology 01/16/25 documented as of this encounter
== END 2025-03-13 13:02 | disposition home or self-care (01) ==
LOC: HO.LAB 13:01
PROVIDERS: PCP Internal Medicine; Visit Provider Internal Medicine Hypertension Specialist
DX: N18.9 Chronic kidney disease, unspecified (principal); N40.1 Benign prostatic hyperplasia with lower urinary tract symptoms; N13.8 Other obstructive and reflux uropathy; I10 Essential (primary) hypertension; D64.9 Anemia, unspecified; I48.0 Paroxysmal atrial fibrillation; Z51.81 Encounter for therapeutic drug level monitoring; Z79.01 Long term (current) use of anticoagulants
CPT/HCPCS: 81003; 85610; 87086; 99211; 99212

== ENCOUNTER 2025-03-13 13:01 | Outpatient (AMB) | payer OTHER, SELFPAY ==
[2025-03-13 13:08] LABS: Prothrombin Time Whole Bld POC 26.2 sec (11.1-13.5); ~PT, ~INR - Anti Coag Clinic 2.2 (0.9-1.1)
--- NOTE | 2025-03-13 13:11 | MHC.OFFVISCO ---
Intake Intake Visit Reasons: Anticoagulation Allergies No Known Allergies [No Known Allergies*] Allergy (Verified 03/13/25 13:04) Medication List - Last Reconciled 03/13/25 by Sandie Grider, [facility] amlodipine 5 mg PO DAILY aspirin 81 mg PO DAILY atorvastatin 80 mg PO BEDTIME cholecalciferol (vitamin D3) 25 mcg PO DAILY dorzolamide-timolol 22.3-6.8 mg/mL 22.3 drps ophthalmic (eye) BID ferrous sulfate (FeroSul) 1 tab PO DAILY furosemide 40 mg PO DAILY iron sucrose (Venofer) 200 mg IV Q3D lisinopril 40 mg PO DAILY octreotide acetate (Mycapssa) 20 mg PO DAILY travoprost 0.004% 1 drp ophthalmic (eye) BEDTIME warfarin 5 mg See Protocol PO DAILY Nursing Note INR: 2.2 in therapeutic range of 2-3 Pt recovering from a cold, was on Bactrim INR on02/27/25 was 7.4, came down to 3.3 on 03/01/25. Now pt feeling better and INR 2.2 Medications and supplements reviewed No changes in health, diet, medications, or supplements, Denies any signs and symptoms of bleeding or bruising or clotting. Bleeding, bruising, clotting discussed Nutritional guidance given Dose: 5mg X 5 days and 2.5mg X 2 days (/) F/U INR: 04/04/25 Patient verbalizes understanding of instructions given Anti-Coag Initial Assessment Social Hx Patient Tobacco Use Status: Former Tobacco user Tobacco use type: Cigarette alcohol intake: former Alcohol intake frequency: does not drink Coding Level of Care Code Est Patient Level 1 Diagnoses Current use of anticoagulant therapy Z79.01 Assessment & Plan Assessment & Plan (1) Current use of anticoagulant therapy: Comment: warfarin-Otto Margarette- need to confirm ok to stop 5 days prior to colonoscopy-unable to send note through expanse Patient aware this must be confirmed, there were no major barriers to understanding identified Code(s): 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
--- OUTSIDE RECORDS SUMMARY | 2025-03-13 14:11 | XMS_ITS | Clinical Summary ---
Author Organization [employer] Address [address] 7t [place] [address] Care Team Providers Care Operation Specialist Name Role Phone Pedro Pulliam MD Primary Care Provide r Niko Salamanca MD Unavailable [phone] Allergies No known active allergies Medications [...] pt currently undergoing PT with good results. [facility] care 09/23/2023 Assessment & Plan (10/17/2024 [...] showed diverticulosis only by Dr connors at [facility] Mixed hyperlipidemia 08/13/2015 09/15/2023 Assessment & Plan [...] the past by his vascular surgeon at [facility] (Dr Lind) whose recommendation was conservative treatment, he saw NO role for any type of surgical intervention. He recommended to repeat the scan in 1 year and continue to take Asa 81 mg po daily. Pt was last seen by his assistant professor surgical technology at [facility] 09/14/2023 recommended repeat US and ECHO [...] and lasix 20 mg daily prescribed by Business Initiatives Manager. I had recently lowered his Lasix [...] and lasix 20 mg daily prescribed by Business Initiatives Manager. I had recently lowered his Lasix [...] Am and 20 mg PM prescribed by Business Initiatives Manager. I had recently lowered his Lasix [...] Am and 20 mg PM prescribed by Business Initiatives Manager. Pt developed some bilateral ankle edema [...] Furosemide 20 mg po BID prescribed by Business Initiatives Manager. Pt developed some bilateral ankle edema [...] Furosemide 20 mg po BID prescribed by Business Initiatives Manager. Pt developed some bilateral ankle edema [...] clinical impression. Plan: Breast center referral at [facility] Assessment & Plan (02/01/2024 1:36 PM EDT): [...] Encounters Date Type Department Care Team Description 03/13/2025 Orders Only GENERIC EXTERNAL DATA DEPARTMENT Provider, Generic External Data 03/01/2025 Orders Only GENERIC EXTERNAL DATA DEPARTMENT Provider, Generic External Data 02/27/2025 Telephone [facility] [address] [place] [phone] Pedro Pulliam MD Critical lab 02/27/2025 Orders Only GENERIC EXTERNAL DATA DEPARTMENT Provider, Generic External Data 02/21/2025 Telephone [facility] [address] [place] [address] Justa Christianson, RN Results; Lab Orders; Referral 02/20/2025 Orders Only [facility] [place] [address] Pedro Pulliam MD Epididymoorchitis (Primary Dx) 02/12/[address] [address] Pedro Pulliam MD Paperwork/Forms 02/11/[address] [address] Pedro Pulliam MD Vitamin D deficiency 02/07/2025 Orders Only GENERIC EXTERNAL DATA DEPARTMENT Provider, Generic External Data 01/16/2025 Telephone [facility] [place] [address] Justa Christianson, RN Interoffice Communication 01/15/[address] [address] Pedro Pulliam MD Referral 01/11/2025 1:15 PM EST Office Visit [facility] [place] [address] Pedro Pulliam MD Primary hypertension (Primary Dx); KARINA (obstructive sleep apnea); Longstanding persistent atrial fibrillation (CMS/HCC); Gynecomastia; Stage 3b chronic kidney disease (CMS/HCC); Iron deficiency; Mixed hyperlipidemia 01/11/2025 Travel 01/10/2025 Orders Only GENERIC EXTERNAL DATA DEPARTMENT Provider, Generic External Data 01/02/2025 Patient Outreach [facility] [place] [address] Pedro Pulliam MD Pre-visit Planning (SDOH Screening negative and Tobacco screening negative) 12/28/2024 Telephone [facility] [place] [address] Pedro Pulliam MD Chart Prep 12/20/2024 Orders [...] 04/17/2025 1:15 PM EDT Office Visit [facility] [address] [place] [address] Pedro Pulliam MD [address] [place] [address] Health Maintenance Due Date Last Done Comments [...] Comments PROTHROMBIN TIME WHOLE BLD POC Routine 03/13/2025 1:06 PM EDT ~PT, ~INR - ANTI COAG CLINIC Routine 03/13/2025 1:06 PM EDT PROTHROMBIN TIME WHOLE BLD POC Routine 03/01/2025 [...] * (ABNORMAL) PROTHROMBIN TIME WHOLE BLD POC (03/13/2025 1:06 PM EDT) Only the most recent of6 resultswithin the time period is included. Protime 26.2(H) 11.1 - 13.5 sec [facility] 03/13/2025 1:06 PM EDT 03/13/2025 1:07 PM EDT us Generic External Data Provider LAB BLOOD ORDERAB LES Final Result [facility] [address] [place] [phone] * (ABNORMAL) ~PT, ~INR - ANTI COAG CLINIC (03/13/2025 1:06 PM EDT) Only the most recent of6 resultswithin the time period is included. Prothrombin Time INR 2.2(H) 0.9 - 1.1 [facility] Comment:METER #: [id number] TERNATIONAL NORMALIZED RATIO (INR) REFERENCE RANGES Reference RangeFor patients not on anticoagulant therapy: 0.9 - 1.1INR ranges for oral anticoagulanttherapy:For prevention and treatment of venous thrombosis and pulmonary embolism: 2.0 - 3.0For acute myocardial infarction with aspirin therapy: 2.0 - 3.0For acute myocardial infarction without aspirin therapy: 3.0 - 4.0For patients with mechanical prosthetic heart valves: 2.5 - 3.5 03/13/2025 1:06 PM EDT 03/13/2025 1:07 PM EDT Generic External Data Provider LAB BLOOD ORDERAB LES Final Result Performing Organization Address [facility] de Phone Number [facility] [address] [place] [phone] * (ABNORMAL) Prothrombin Time-INR (02/27/2025 1:31 PM EDT) Prothrombin Time 86.4(H) 10.9 - 12.4 SEC [facility] INTERNATIONAL NORM RATIO 7.4(HH) 0.9 - 1.1 [facility] Comment:RESULTS OF INR BURGOS D [...] ORDERAB LES Final Result Performing Organization Address City/[facility] Co de Phone Number [facility] [address] [place] [address] [phone] * (ABNORMAL) Urinalysis, Complete, with Reflex to Culture (02/22/2025 9:20 AM EDT) Color Urine Dark Yellow [facility] Appearance Urine Turbid [facility] PH 5.0 5.0 - 9.0 [facility] Glucose Urine UA Negative Negative mg/dL [facility] Urine Blood Negative Negative [facility] Specific [place] - Urine 1.025 1.005 - 1.025 [facility] Urine Protein 30 (1+)(A) Neg-Trace mg/dL [facility] Urine Ketones 15 Negative mg/dL [facility] Nitrite Urine Negative Negative [facility] Leukocyte Esterase Urine Trace(A) Negative [facility] RBC Urine 0-2 0 - 2 /HPF [facility] Urine WBC 0-5 0 - 5 /HPF [facility] Urine Squamous Epithelial Cell 3-5 0 - 2 /HPF [facility] CALCIUM OXALATE CRYSTAL, UR Present [facility] Urine Bacteria None Seen None Seen [facility] Hyaline Casts, Urine 3-5 0 - 2 /LPF [facility] GRANULAR CASTS (#/HPF) IN URINE Present [facility] Waxy Casts Present [facility] Urine 02/22/2025 9:20 AM EDT 02/22/2025 11:25 AM EDT Narrative [facility] - 02/22/2025 12:09 PM EDT Urine, Clean Catch us Pedro Julian MD LAB URINE ORDERABLES Final Result [facility] [address] [place] [phone] [phone] * US Scrotum (02/19/2025 3:57 PM EDT) Anatomical Region Laterality Modality Body Ultrasound 02/19/2025 3:57 PM EDT Narrative 02/19/2025 4:56 PM EDT ? [facility] ?[address] ?[place] [address] ? Ultrasound Report ? Signed ? Patient: Pablo Quinteros,Jamie ?MR#: ?? [id number] ? : 1945 ?Acct:[id number] ? Age/Sex: 79 / M ?ADM Date: 02/19/25 ? Loc: HO.US ? Attending Dr: Niko Salamanca MD ? Ordering Physician: Pedro Webber MD ?? Date of Service: 02/19/25 ?? Procedure(s): US scrotum ?? Accession Number(s): [id number] ? cc: Pedro Webber MD ? EXAMINATION: [...] DD/ 1557 ? TD/TT: 02/19/25 1613 ? Chemical Sprayer: ? Procedure Note Donotuseinterpreter, Image - 02/19/[address] [address] Ultrasound Report Signed Patient: Jaime CarpioR#: [id number] : 6Acct:[id number] Age/Sex: 79 / MADM Date: 02/19/25 Loc: HO.US Attending Dr: Niko Salamanca MD Ordering Physician: Pedro Webber MD Date of Service: 02/19/25 Procedure(s): US scrotum Accession Number(s): [id number] cc: Pedro Webber MD EXAMINATION: US SCROTUM [...] A Bradley MD 02/19/2025 04:53 PM EDT RP Dictated By: Miguel A Bradley MD Signed By: <Electronically signed by Miguel A Bradley MD in OV> 02/19/25 1653 DD/ 1557 TD/TT: 02/19/25 1613 Chemical Sprayer: us Pedro Julian MD IMG US PROCEDURES Ortiz david Result - Final * US RENAL BI (02/19/2025 3:38 PM EDT) Anatomical Region Laterality Modality Abdomen Ultrasound 02/19/2025 3:38 PM EDT Narrative 02/19/2025 4:52 PM EDT ? [facility] ?[address] ?[place] [address] ? Ultrasound Report ? Signed ? Patient: Pablo Quinteros,Jamie ?MR#: ?? [id number] ? : 1945 ?Acct:[id number] ? Age/Sex: 79 / M ?ADM Date: 02/19/25 ? Loc: HO.US ? Attending Dr: Niko Salamanca MD ? Ordering Physician: Niko Salamanca MD ?? Date of Service: 02/19/25 ?? Procedure(s): US renal BI ?? Accession Number(s): [id number] ? cc: Niko Salamanca MD; Pedro Webber [...] DD/ 1538 ? TD/TT: 02/19/25 1548 ? Chemical Sprayer: MSM ? Procedure Note Yazan Peters - 02/19/2025 [place] [address] Ultrasound Report Signed Patient: Rik Carpio#: [id number] : 6Acct:[id number] Age/Sex: 79 / MADM Date: 02/19/25 Loc: HO.US Attending Dr: Niko Salamanca MD Ordering Physician: Niko Salamanca MD Date of Service: 02/19/25 Procedure(s): US renal BI Accession Number(s): [id number] cc: Niko Salamanca MD; Pedro Webber MD [...] 02/19/25 1650 DD/ 1538 TD/TT: 02/19/25 1548 Chemical Sprayer: [facility] External Provider IMG US PROCEDURES Edited Result - Final * TSH with Reflex to Free T4 (01/16/2025 9:13 AM EDT) TSH reflex Free T4 1.80 0.32 - 4.0 uIU/mL [facility] Blood Venous blood specimen / Unknown 01/16/2025 9:13 AM EDT 01/16/2025 11:29 AM EDT Pedro Julian MD LAB BLOOD ORDERABLES Final Result [facility] [address] [place] [phone] * hCG, Total, Quantitative (01/16/2025 9:13 AM EDT) HCG Quantitative <2 mIU/mL [facility] Blood Venous blood specimen / Unknown 01/16/2025 9:13 AM EDT 01/16/2025 11:29 AM EDT Pedro Julian MD LAB BLOOD ORDERABLES Final Result [facility] [address] [place] [phone] [phone] * (ABNORMAL) Lipid Panel, Standard (01/16/2025 9:13 AM EDT) Triglycerides 40 <150 mg/dL [facility] Comment:Desirable Triglyceri de: less than 150 mg/dLBorderline High Triglyceride 150-199 mg/dLHigh Triglyceride: 200-499 mg/dLVery High Triglyceride: greater than or equal to 5OO mg/dL Cholesterol 93 <200 mg/dL [facility] Comment:Desirable Cholestero l: less than 200 mg/dLBorderline High Cholesterol: 200-239 mg/dLHigh Cholesterol: greater than 239 mg/dL LDL Cholesterol Calculated 58 <100 mg/dL [facility] Comment:Desirable LDL: less than 100 mg/dLNear Optimal/Above Optimal LDL: 110- 129 mg/dLBorderline High LDL: 130-159 mg/dLHigh LDL: 160-189 mg/dLVery High LDL: greater than or equal to 190 mg/dL HDL Cholesterol 27(L) >40 mg/dL [facility] Comment:Desirable HDL: great er than 40 mg/dL Note: This HDL assay may give artificially low results in patients with liver disease. Blood Venous blood specimen / Unknown 01/16/2025 9:13 AM EDT 01/16/2025 11:29 AM EDT Pedro Julian MD LAB BLOOD ORDERABLES Final Result [facility] [address] [place] [phone] [phone] * (ABNORMAL) Basic Metabolic Panel (01/16/2025 9:13 AM EDT) Sodium 141 135 - 145 mmol/L [facility] Potassium 4.5 3.3 - 5.1 mmol/L [facility] Chloride 111(H) 96 - 108 mmol/L [facility] Carbon Dioxide 25 22 - 29 mmol/L [facility] Anion Gap 10(L) 12 - 20 [facility] Urea Nitrogen (BUN) 28(H) 9 - 16 mg/dL [facility] Creatinine, Serum 1.90(H) 0.5 - 1.4 mg/dL [facility] Estimated Glomerular Filt Rate 34 [facility] Comment:Chronic Kidney Disea se: Estimated GFR < 60 mL/min/1.38o1Sjqsph Kidney Disease: Estimated GFR < 15 mL/min/1.73m2 Glucose 93 60 - 115 mg/dL [facility] Calcium 8.7 8.4 - 10.2 mg/dL [facility] Blood Venous blood specimen / Unknown 01/16/2025 9:13 AM EDT 01/16/2025 11:29 AM EDT Pedro Julian MD LAB BLOOD ORDERABLES Final Result Performing Organization Address City/[facility]/ZIP Co de Phone Number [facility] [address] [place] [phone] * Prolactin (01/16/2025 8:13 AM EDT) Prolactin 9.2 2.0 - 18.0 ng/mL [facility] Comment:THIS TEST WAS PERFOR MED AT:[employer] [place] [phone] SEGURA MD Blood Venous blood specimen / Unknown 01/16/2025 8:13 AM EDT 01/16/2025 11:29 AM EDT Pedro Julian MD LAB BLOOD ORDERABLES Final Result Performing Organization Address City/[facility] Co de Phone Number [facility] [address] [place] [phone] * DHEA Sulfate (01/16/2025 8:13 AM EDT) Pathologist [facility] DHEA Sulfate 44 3 - 225 mcg/dL [facility] Comment:THIS TEST WAS PERFOR MED AT:[employer] [address] [phone] SEGURA MD Blood Venous blood specimen / Unknown 01/16/2025 8:13 AM EDT 01/16/2025 11:29 AM EDT Pedro Julian MD LAB BLOOD ORDERABLES Final Result Performing Organization Address [facility] Co de Phone Number [facility] [address] [place] [phone] * (ABNORMAL) Estradiol (01/16/2025 8:13 AM EDT) [facility] Estradiol Ultra Sensitive 37(A) < OR = 29 pg/mL [facility] Comment:This test was develo ped and its analytical performancecharacteristics have been determined by [employer].It has not been cleared or approved by the FDA. This assayhas been validated pursuant to the CLIA regulations and isused for clinical purposes.THIS TEST WAS PERFORMED AT:[employer] [id number] [place] [phone] RODRIGUZE MD,PHD,VIPUL Blood Venous blood specimen / Unknown 01/16/2025 8:13 AM EDT 01/16/2025 11:29 AM EDT Pedro Julian MD LAB BLOOD ORDERABLES Final Result Performing Organization Address City/[facility] Co de Phone Number [facility] [address] [place] [phone] * Testosterone, Free (Dialysis) And Total, MS (01/16/2025 8:13 AM EDT) Testosterone, Total 498 250 - 1100 ng/dL [facility] Comment:Men with clinically significant hypogonadalsymptoms and testosterone values repeatedly inthe range of the 200-300 ng/dL or less, maybenefit from testosterone treatment afteradequate risk and benefits counseling.For additional information, please refer tohttp://education.[employer]/faq/LurilTrckiqicesjjNHXFFUASL332(This link is being provided for informational/educational purposes only.)This test was developed and its analytical performancecharacteristics have been determined by [employer] [place], [place]. It hasnot been cleared or approved by the U.S. Food and DrugAdministration. This assay has been validated pursuantto the CLIA regulations and is used for clinicalpurposes. Testosterone, Free 60.8 30.0 - 135.0 pg/mL [facility] Comment:This test was develo ped and its analytical performancecharacteristics have been determined by [employer] [place], [place]. It hasnot been cleared or approved by the U.S. Food and DrugAdministration. This assay has been validated pursuantto the CLIA regulations and is used for clinicalpurposes.THIS TEST WAS PERFORMED AT:[employer] [id number] [place] [address]JPYNQUKRAMSES CULLEN MD,PHD Blood Venous blood specimen / Unknown 01/16/2025 8:13 AM EDT 01/16/2025 11:29 AM EDT us Pedro Julian MD LAB BLOOD ORDERABLES Final Result [facility] [address] [place] [phone] * (ABNORMAL) LH (01/16/2025 8:13 AM EDT) Lutenizing Hormone 37.7(A) 1.6 - 15.2 mIU/mL [facility] Comment:THIS TEST WAS PERFOR MED AT:[employer] [address] [phone] SEGURA MD Blood Venous blood specimen / Unknown 01/16/2025 8:13 AM EDT 01/16/2025 11:29 AM EDT Pedro Julian MD LAB BLOOD ORDERABLES Final Result Performing Organization Address [facility] Co de Phone Number [facility] [address] [place] [phone] * (ABNORMAL) FSH (01/16/2025 8:13 AM EDT) Follicle Stimulating Hormone 49.9(A) 1.4 - 12.8 mIU/mL [facility] Comment:THIS TEST WAS PERFOR MED AT:[employer] [address] [phone] SEGURA MD Blood Venous blood specimen / Unknown 01/16/2025 8:13 AM EDT 01/16/2025 11:29 AM EDT Pedro Julian MD LAB BLOOD ORDERABLES Final Result Performing Organization Address [facility] Co de Phone Number [facility] [address] [place] [phone] * BI Mammogram Diagnostic Tomosynthesis Bilateral (04/11/2024 3:15 PM EDT) Anatomical Region Laterality Modality Breast Bilateral Mammography 04/11/2024 3:15 PM EDT Narrative 04/11/2024 4:59 PM EDT ? [facility] ? [address] ?[place] [address] ? Mammography Report ? Signed ? Patient: Pablo Quinteros,Jamie ?MR#: ?? [id number] ? : 1945 ?Acct:[id number] ? Age/Sex: 79 / M ?ADM Date: 04/11/24 ? Loc: HO.MAMMO ? Attending Dr: Pedro Webber MD ? Ordering Physician: Pedro Webber MD ?Resu ?? lts: 2Benign Findings ? Date of Service: 04/11/24 ?Follow Up: 1 Year From Orig ?? inal Mammogram ? Procedure(s): MM tomosynthesis diagnostic BI ?? Accession Number(s): [id number] ? cc: Pedro Webber MD ? EXAMINATION: [...] 1654 ? DD/ 1515 ? TD/TT: ? Chemical Sprayer: ? Procedure Note Donotuseinterpreter, Image - 04/11/2024 [facility] [address] [place] [address] Dr. Mckeon, CHERYLE [address] Mammography Report Signed Patient: Rik Carpio#: [id number] : 6Acct:[id number] Age/Sex: 79 / MADM Date: 04/11/24 Loc: HO.MAMMO Attending Dr: Pedro Webber MD Ordering Physician: Pedro Webber MDResu lts: 2Benign Findings Date of Service: 04/11/24Follow Up: 1 Year From Orig inal Mammogram Procedure(s): MM tomosynthesis diagnostic BI Accession Number(s): [id number] cc: Pedro Webber MD EXAMINATION: MM DIAGNOSTIC [...] in OV> 04/11/24 1654 DD/ 1515 TD/TT: Chemical Sprayer: Pedro Julian MD IMG BI PROCEDURES Fin al Result * HEPATITIS C AB W/REFL TO HCV RNA, QN, PCR (12/24/2021 8:24 AM EST) HEPATITIS C ANTIBODY NON-REACT SIL NON-REACT SIL [facility] INDEX 0.01 <1.00 [facility] Comment: ?? HCV antibody was non-reactive. There is no laboratory ?? evidence of HCV infection. ?? In most cases, no further action is required. However, if recent HCV exposure is suspected, a test for HCV RNA (test code 32421) is suggested. ?? For additional information please refer to http://education.[employer]/faq/JCL75w2 (This link is being provided for informational/ educational purposes only.) ?? 12/24/2021 8:24 AM EST Pedro Julian MD HISTORICAL/NON ORDERA BLE LABS Final Result [facility] [address] from Last 3 Months or Most Recently Relevant to Health Maintenance Insurance [address] CHERYLE Webber [facility] [employer] (HMO D-SNP) [place] [id number] Care Teams Operation Specialist Relationship Specialty Start Date End Date Pedro Pulliam MD [address] [place] [phone] PCP - General Internal Medicine 09/10/14 Niko Salamanca MD [address] [place] [address] [address] [place] [address] Nephrology 01/16/25
--- OUTSIDE RECORDS SUMMARY | 2025-03-13 14:12 | XMS_ITS | Encounter Summary ---
Author Organization [facility] Address [address] [place] [address] 7t [place] [address] Care Team Providers Care Cancellation Clerk Name Role Phone Pedro Pulliam MD Primary Care Provide r Niko Salamanca MD Unavailable [phone] Encounter Details Date Type Department Care Team (Late st Contact Info) Description 05/31/2023 Orders Only [facility] [address] [place] [phone] Shanita Pfeiffer LPN Social History Tobacco Use [...] Description 04/17/2025 1:15 PM EDT Office Visit [facility] [address] [place] [phone] Pedro Pulliam MD [address] [place] [address] documented as of this encounter Visit Diagnoses Not on filedocumented in this encounter Care Teams Cancellation Clerk Relationship Specialty Start Date End Date Pedro Pulliam MD [address] [place] [address] PCP - General Internal Medicine 11/3/14 Niko Salamanca MD [address] [place] [address] Nephrology 01/16/25 documented as of this encounter
--- OUTSIDE RECORDS SUMMARY | 2025-03-13 14:12 | XMS_ITS | Encounter Summary ---
Author Organization [employer] Address [address] 7t [place] [address] Care Team Providers Care Technology Recruiter Name Role Phone Pedro Pulliam MD Primary Care Provide r Niko Salamanca MD Unavailable [phone] Reason for Visit * Reason Onset Date Comments OV 03/1602/17/2024 Encounter Details Date Type Department Care Team (Late st Contact Info) Description 02/17/2024 Telephone [facility] [address] [place], [place] [phone] Pedro Pulliam MD [address] [place], [place] [phone] OV 03/16 Social History Tobacco Use Types [...] any questions you can contact pt at [phone]. documented in this encounter Plan of Treatment Upcoming Encounters Date Type Department Care Team (Late st Contact Info) Description 04/17/2025 1:15 PM EDT Office Visit [facility] [address] [place] [address] Pedro Pulliam MD [address] [place] [address] documented as of this encounter Visit Diagnoses Not on filedocumented in this encounter Additional Health Concerns Assessment Noted Time PHQ-9 Depression Total Score: 1 09/23/20 23 1:21 PM EST documented as of this encounter Care Teams Technology Recruiter Relationship Specialty Start Date End Date Pedro Pulliam MD [address] [place] [address] PCP - General Internal Medicine 09/10/14 Niko Salamanca MD [address] [place] [address] Nephrology 01/16/25 documented as of this encounter
--- OUTSIDE RECORDS SUMMARY | 2025-03-13 14:12 | XMS_ITS | Encounter Summary ---
Author Organization [employer] Address [address] [facility] 7t [place] [address] Care Team Providers Care Manager Night Name Role Phone Pedro Pulliam MD Primary Care Provide r Niko Salamanca MD Unavailable [phone] Encounter Details Date Type Department Care Team (Late st Contact Info) Description 02/01/2023 Orders Only [facility] [address] [place] [address] Shira Castano LPN Social History Tobacco Use [...] PM EDT Office Visit [facility] [address] [place] [address] Pedro Pulliam MD [address] [place] [address] documented as of this encounter Visit Diagnoses Not on filedocumented in this encounter Care Teams Manager Night Relationship Specialty Start Date End Date Pedro Pulliam MD [address] [place], [place] [phone] PCP - General Internal Medicine 09/10/14 Niko Salamanca MD [address] [place] [phone] Nephrology 01/16/25 documented as of this encounter
--- OUTSIDE RECORDS SUMMARY | 2025-03-13 14:12 | XMS_ITS | Encounter Summary ---
Author Organization [employer] Address [address] [place] [address] Care Team Providers Care Hospital Sales Representative Name Role Phone Pedro Pulliam MD Primary Care Provide r Niko Salamanca MD Unavailable [phone] Encounter Details Date Type Department Care Team (Late st Contact Info) Description 03/13/2025 Orders Only GENERIC EXTERNAL DATA [...] PM EDT Office Visit [facility] [address] [place] [address] Pedro Pulliam MD [address] [place] [address] documented as of this encounter Procedures Procedure Name Priority Date/Time Associated Diagnosis Comments PROTHROMBIN TIME WHOLE BLD POC Routine 03/13/2025 1:06 PM EDT ~PT, ~INR - ANTI COAG CLINIC Routine 03/13/2025 1:06 PM EDT documented in this encounter Results * (ABNORMAL) PROTHROMBIN TIME WHOLE BLD POC (03/13/2025 1:06 PM EDT) Protime 26.2(H) 11.1 - 13.5 sec [facility] 03/13/2025 1:06 PM EDT 03/13/2025 1:07 PM EDT us Generic External Data Provider LAB BLOOD ORDERAB LES Final Result [facility] [address] [place] [address] [phone] * (ABNORMAL) ~PT, ~INR - ANTI COAG CLINIC (03/13/2025 1:06 PM EDT) Prothrombin Time INR 2.2(H) 0.9 - 1.1 [facility] Comment:METER #: [id number] TERNATIONAL NORMALIZED RATIO (INR) REFERENCE RANGES Reference [...] Provider LAB BLOOD ORDERAB LES Final Result [facility] [address] [place] [address] [phone] documented in this encounter Visit Diagnoses Not on filedocumented in this encounter Additional Health Concerns Assessment Noted Time PHQ-9 Depression Total Score: 0 10/17/20 24 1:50 PM EST documented as of this encounter Care Teams Hospital Sales Representative Relationship Specialty Start Date End Date Pedro Pullaim MD [address] [place] [address] PCP - General Internal Medicine 09/10/14 Niko Salamanca MD [address] [place] [address] Nephrology 01/16/25 documented as of this encounter
--- OUTSIDE RECORDS SUMMARY | 2025-03-13 14:12 | XMS_ITS | Encounter Summary ---
Author Organization [employer] Address [address] [place] [address] Care Team Providers Care Skilled Nursing Professional Name Role Phone Pedro Pulliam MD Primary Care Provide r Niko Salamanca MD Unavailable [phone] Reason for Visit * Reason Onset Date Comments follow up needed 11/20/2024 Encounter Details Date Type Department Care Team ([facility] st Contact Info) Description 11/20/2024 Telephone [facility] [address] [place], [place] [phone] Pedro Pulliam MD [address] [place], [place] [phone] follow up needed Social History Tobacco Use [...] 11/21/2024 10:42 AM EST TC placed to [facility] Pl[facility] Surgery office and spoke to their [...] 12:47 PM EST Tc from [place] with [facility] plastic surgery reporting that they saw [...] Description 04/17/2025 1:15 PM EDT Office Visit [facility] [address] [place] [address] Pedro Pulliam MD [address] [place] [address] documented as of this encounter Visit Diagnoses Not on filedocumented in this encounter Additional Health Concerns Assessment Noted Time PHQ-9 Depression Total Score: 0 10/17/20 1:50 PM EST documented as of this encounter Care Teams Skilled Nursing Professional Relationship Specialty Start Date End Date Pedro Pulliam MD [address] [place] [address] PCP - General Internal Medicine 09/10/14 Niko Salamanca MD [address] [place] [address] Drive [address] [place] [address] Nephrology 01/16/25 documented as of this encounter
--- OUTSIDE RECORDS SUMMARY | 2025-03-13 14:12 | XMS_ITS | Clinical Summary ---
Author Organization [facility] [employer] [facility] Facility Address [address] [address] Care Team Providers Care Associate Professor Of Sociology Name Role Phone Pedro Snow MD Primary [...] age to complete this topic Care Teams Associate Professor Of Sociology Relationship Specialty Start Date End Date Pedro Snow MD PCP - General 11/18/20
--- OUTSIDE RECORDS SUMMARY | 2025-03-13 14:12 | XMS_ITS | Encounter Summary ---
Author Organization [employer] Address [address] [facility] 7t [place] [address] Care Team Providers Care Cherry Dipper Name Role Phone Pedro Pulliam MD Primary Care Provide r Niko Salamanca MD Unavailable [phone] Reason for Visit * Reason Onset Date Comments Med Refill 2023 Encounter Details Date Type Department Care Team (Late st Contact Info) Description 2023 Refill [facility] [address] [place] [address] Pedro Pulliam MD [address] [place] [address] Atrial fibrillation, unspecified type (CMS/HCC) (Primary Dx) [...] 04/17/2025 1:15 PM EDT Office Visit [facility] [address] [place] [address] Pedro Pulliam MD [address] [place] [address] documented as of this encounter Visit Diagnoses Diagnosis Atrial fibrillation, unspecified type (CMS/HCC)- Primary documented in this encounter Care Teams Cherry Dipper Relationship Specialty Start Date End Date Pedro Pulliam MD [address] [place] [address] PCP - General Internal Medicine 09/10/14 Niko Salamanca MD [address] [place] [address] Drive [address] [place] [address] Nephrology 01/16/25 documented as of this encounter
--- OUTSIDE RECORDS SUMMARY | 2025-03-13 14:12 | XMS_ITS | Encounter Summary ---
Author Organization [facility] Address [address] [place] [address] 7t [place] [address] Care Team Providers Care Cadworx Piping Designer Name Role Phone Pedro Pulliam MD Primary Care Provide r Niko Salamanca MD Unavailable [phone] Encounter Details Date Type Department Care Team (Late st Contact Info) Description 02/25/2023 Orders Only [facility] [address] [place] [address] Shanita Pfeiffer LPN Social History Tobacco Use [...] 04/17/2025 1:15 PM EDT Office Visit [facility] [address] [place] [address] Pedro Pulliam MD [address] [place] [address] documented as of this encounter Visit Diagnoses Not on filedocumented in this encounter Care Teams [employer] Piping Designer Relationship Specialty Start Date End Date Pedro Pulliam MD [address] [place] [address] PCP - General Internal Medicine 11/3/14 Niko Salamanca MD [address] [place] [address] Nephrology 01/16/25 documented as of this encounter
--- OUTSIDE RECORDS SUMMARY | 2025-03-13 14:12 | XMS_ITS | Clinical Summary ---
Author Organization [facility] Address [address] [place] [address] Care Team Providers Care Supply Tech Name Role Phone Unavailable Primary Care Provider [...] Documents on File Type Date Recorded Patient Environmental Engineering Assistant Expl anation Health Care Decision (hx) 01/10/2020 AD PHILLIP DIRECTIVE
--- OUTSIDE RECORDS SUMMARY | 2025-03-13 14:12 | XMS_ITS | Encounter Summary ---
Author Organization [employer] Address [address] [place] [address] Care Team Providers Care Parts Salvager Name Role Phone Pedro Pulliam MD Primary Care Provide r Niko Salamanca MD Unavailable [phone] Encounter Details Date Type Department Care Team ([facility] st Contact Info) Description 05/31/2024 Telephone [facility] [address] [place], [place] [phone] Pedro Pulliam MD [address] [place], [place] [phone] Social History Tobacco Use Types Packs/Day Years [...] 05/31/24 at 1:21 PM Name of Caller/Facility:[facility] Callback number: [phone] Reason for Call: INR 1.4 no missed doses Usual warfarin is 5mg Mon & Wednesday and 2.5mg all other days. [...] Office Visit [facility] [address] [place] [address] Pedro Pulliam MD [address] [place] [address] documented as of this encounter Visit Diagnoses Not on filedocumented in this encounter Additional Health Concerns Assessment Noted Time PHQ-9 Depression Total Score: 1 09/23/20 23 1:21 PM EST documented as of this encounter Care Teams Parts Salvager Relationship Specialty Start Date End Date Pedro Pulliam MD [address] [place] [address] PCP - General Internal Medicine 09/10/14 Niko Salamanca MD [address] [place] [address] [place] [address] Nephrology 01/16/25 documented as of this encounter
--- OUTSIDE RECORDS SUMMARY | 2025-03-13 14:12 | XMS_ITS | Encounter Summary ---
Author Organization [employer] Address [address] [facility] 7[address] [place] [address] Care Team Providers Care Aircraft Load Controller Name Role Phone Pedro Pulliam MD Primary Care Provide r Niko Salamanca MD Unavailable [phone] Encounter Details Date Type Department Care Team (Late st Contact Info) Description 01/06/2023 Orders Only [facility] [address] [place] [address] Shira Castano LPN Social History Tobacco Use [...] Description 04/17/2025 1:15 PM EDT Office Visit [facility] [address] [place] [address] Pedro Pulliam MD [address] [place] [address] documented as of this encounter Visit Diagnoses Not on filedocumented in this encounter Care Teams Aircraft Load Controller Relationship Specialty Start Date End Date Pedro Pulliam MD [address] [place], [place] [phone] PCP - General Internal Medicine 09/10/14 Niko Salamanca MD [address] [place] [address] Nephrology 01/16/25 documented as of this encounter
--- OUTSIDE RECORDS SUMMARY | 2025-03-13 14:12 | XMS_ITS | Encounter Summary ---
Author Organization [employer] Address [address] [place] [address] Care Team Providers Care Marine Extension Agent Name Role Phone Pedro Pulliam MD Primary Care Provide r Niko Salamanca MD Unavailable [phone] Reason for Visit * Reason Comments Med Refill Encounter Details Date Type Department Care Team (Late st Contact Info) Description 06/02/2024 Refill [facility] [address] [place], [place] [phone] Pedro Pulliam MD [address] [place], [place] [phone] Primary hypertension; Stage 3 chronic kidney disease, [...] Description 04/17/2025 1:15 PM EDT Office Visit [facility] [address] [place] [address] Pedro Pulliam MD [address] [place] [address] documented as of this encounter Visit Diagnoses Diagnosis Primary hypertension Unspecified essential hypertension Stage 3 chronic kidney disease, unspecified whether stage 3a or 3b CKD ([facility]/HCC) Nonrheumatic tricuspid valve regurgitation documented in this encounter Additional Health Concerns Assessment Noted Time PHQ-9 Depression Total Score: 1 09/23/20 23 1:21 PM EST documented as of this encounter Care Teams Marine Extension Agent Relationship Specialty Start Date End Date Pedro Pulliam MD [address] [place] [address] PCP - General Internal Medicine 09/10/14 Niko Salamanca MD [address] [place] [address] Nephrology 01/16/25 documented as of this encounter
== END 2025-03-13 13:17 | disposition home or self-care (01) ==
LOC: HO.ACS 13:01
PROVIDERS: PCP Internal Medicine; Visit Provider Internal Medicine Medical Oncology
DX: Z79.01 Long term (current) use of anticoagulants (principal)

== ENCOUNTER 2025-03-13 13:17 | Outpatient (AMB) | payer OTHER, SELFPAY ==
--- NOTE | 2025-03-13 13:29 | HO.NEPHOV_ITS ---
Vital Signs 03/13/25 13:30 Height 5 ft 9 in Weight 163 lb BMI 24.1 BP 134/52 L Blood Pressure Location Rt brachial Position Sitting Pulse 56 Pulse Source Pulse Oximeter Pulse Oximetry (%) 100 Oxygen Delivery Method Room Air Intake Visit Reasons: 6 weeks fu/ Conf Mailing Manager Required: Yes Mailing Manager Name: Isaias [phone] Accompanied by: Self / Same As Patient Allergies No Known Allergies [No Known Allergies*] Allergy (Verified 03/13/25 13:30) Medication List - Last Reconciled 03/13/25 by Niko Salamanca MD amlodipine 5 mg PO DAILY aspirin 81 mg PO DAILY atorvastatin 80 mg PO BEDTIME cholecalciferol (vitamin D3) 25 mcg PO DAILY dorzolamide-timolol 22.3-6.8 mg/mL 22.3 drps ophthalmic (eye) BID ferrous sulfate (FeroSul) 1 tab PO DAILY furosemide 40 mg PO DAILY iron sucrose (Venofer) 200 mg IV Q3D octreotide acetate (Mycapssa) 20 mg PO DAILY travoprost 0.004% 1 drp ophthalmic (eye) BEDTIME warfarin 5 mg See Protocol PO DAILY HPI Comments Details: Joby is a pleasant 79-year-old man with a history of chronic kidney disease. He has a history of BPH and he has been evaluated by Urology. He has been referred for chronic kidney disease. As of 07/31/2024 serum creatinine was 1.61. This has remained unchanged for at least 2 months. Ongoing medical problems include hypertension and atrial fibrillation. Today he is having some difficulty urination. No hematuria. No urgency. No fever. No shortness of breath no chest pain nausea or vomiting. 03/13/25 Still has difficulty urinating Has not seen Urology Recently has dysuria and treated with antibiotics- cannot recall the name of the medication [facility] Medical History Atrial fibrillation Tubular adenoma Dyslipidemia HTN (hypertension) Surgical History Hx of bilateral cataract extraction Hx of colonoscopy History of esophagogastroduodenoscopy (EGD) Family History Father Throat cancer Brother Prostate cancer Asthma Sister Hypertension Diabetes Mother Hypertension Social History Household Members: None Housing: Apartment Are you a primary acute care certified nursing assistant to a significant other at home: No Do you presently have visiting nurse or other home services: Yes (every 6 months) Alcohol intake: former Patient Tobacco Use Status: Former Tobacco user Tobacco use type: Cigarette service: No Current occupational status: retired Physical Exam Vital Signs: Last Vital Signs Pulse 56 03/13/25 13:30 BP 134/52 L 03/13/25 13:30 Pulse Ox 100 03/13/25 13:30 Oxygen Delivery Method Room Air 03/13/25 13:30 BMI result Body Mass Index 24.1 Const General: comfortable; No acute distress Orientation/consciousness: patient oriented x3 Eyes General: appearance normal, both eyes and all related structures Visual Damon: normal visual damon by confrontation Neck Neck: Yes supple and Yes no JVD Resp Effort & Inspection: normal respiratory effort and respiratory effort not decreased Cardio Palpation: no palpable S3 and no palpable S4 Heart sounds: no rubs GI Inspection: Yes normal to inspection Palpation (GI): Soft to palpation Percussion: Yes normal to percussion Auscultation: normal bowel sounds General: Yes no CVA tenderness Back/Spine/Pelvis Back: no CVA tenderness Skin General skin exam: no petechiae and no purpura Neuro General: patient oriented x3 and no focal motor deficits Extrem General: No clubbing and Yes edema (1+) Results Reviewed Nephrology Results: Hgb 8.9 g/dl (14.0-18.0) L 03/09/25 WBC 4.3 X10*3/uL (4.8-10.8) L 03/09/25 Plt Count 177 X10*3/uL (160-400) 03/09/25 Sodium 136 mmol/L (135-145) 03/09/25 Potassium 5.2 mmol/L (3.3-5.1) H 03/09/25 Chloride 113 mmol/L (96-108) H 03/09/25 Carbon Dioxide 18 mmol/L (22-29) L 03/09/25 BUN 54 mg/dL (9-16) H 03/09/25 Creatinine 2.64 mg/dL (0.5-1.4) H 03/09/25 Calcium 8.4 mg/dL (8.4-10.2) 03/09/25 Urine Protein 30 (1+) mg/dL (Neg-Trace) H 02/22/25 Renal US 02/19/25 Assessment & Plan Assessment & Plan (1) CKD (chronic kidney disease): Code(s): N18.9 - Chronic kidney disease, unspecified Category: Medical (2) HTN (hypertension): Code(s): I10 - Essential (primary) hypertension Category: Medical Qualifiers: Hypertension type: unspecified Qualified Code(s): I10 - Essential (primary) hypertension (3) Anemia: Code(s): D64.9 - Anemia, unspecified Category: Medical (4) BPH w urinary obs/LUTS: Code(s): N40.1 - Benign prostatic hyperplasia with lower urinary tract symptoms; N13.8 - Other obstructive and reflux uropathy Category: Medical Plan . 79-year-old man with longstanding hypertension and BPH has chronic kidney disease. Serum creatinine has been stable around 1.6 mg/dL. Recent bump to 1.9 to 2.4 He has a history of bladder outlet obstruction and he was seen by Dr. Melo urinary retention/obstructive uropathy to explain CKD. Needs follow up with Urology Other possibility would include hypertensive nephrosclerosis. In the past urine sediments were bland therefore glomerular nephritis or interstitial disease seem unlikely. Repeat renal panel Stay on low-sodium diet Continue to increase p.o. intake. blood pressure is acceptable. I will continue the same antihypertensive medications He should stay on low-sodium diet. 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 Due to worsening Creatinine and mild hyperkalemia, ? due to obstruction bs recent uti/antibiotics; Unclear if he was on Bactrim I will stop Lisinopril for now Will repeat urine culture since he still has urinary symptoms Needs urology follow up. ( has appt on 04/03/25) Orders: Orders Urine Culture Today N13.8 - Other obstructive and reflux uropathy, N18.9 - Chronic kidney disease, unspecified, N40.1 - Benign prostatic hyperplasia with lower urinary tract symptoms Basic Metabolic Panel 4 Weeks N18.9 - Chronic kidney disease, unspecified UA and rflx microscopic Today N13.8 - Other obstructive and reflux uropathy, N18.9 - Chronic kidney disease, unspecified, N40.1 - Benign prostatic hyperplasia with lower urinary tract symptoms Coding Level of Care Code Est Pt Level 4 (09584) Diagnoses CKD (chronic kidney disease) N18.9 Hypertension, unspecified type I10 Hypertension type: unspecified Anemia D64.9 BPH w urinary obs/LUTS N40.1; N13.8
[2025-03-13 13:30] VITALS: BP 134/52; PULSE 56; O2SAT 100; BMI 24.1
--- OUTSIDE RECORDS SUMMARY | 2025-03-13 14:34 | XMS_ITS | Clinical Summary ---
Author Organization [employer] Address [address] 7[address] [place] [address] Care Team Providers Care Children'S Literature Professor Name Role Phone Pedro Pulliam MD Primary Care Provide r Niko Salamanac MD Unavailable Allergies No known active allergies Medications Aspirin [...] pt currently undergoing PT with good results. [facility] care 09/23/2023 Assessment & Plan (10/17/2024 1:55 [...] showed diverticulosis only by Dr connors at [facility] Mixed hyperlipidemia 08/13/2015 09/15/2023 Assessment & Plan [...] the past by his vascular surgeon at [facility] (Dr Lind) whose recommendation was conservative treatment, he saw NO role for any type of surgical intervention. He recommended to repeat the scan in 1 year and continue to take Asa 81 mg po daily. Pt was last seen by his panel raiser operator at [facility] [...] and lasix 20 mg daily prescribed by Treatment Counselor. I had recently lowered his Lasix due [...] and lasix 20 mg daily prescribed by Treatment Counselor. I had recently lowered his Lasix due [...] Am and 20 mg PM prescribed by Treatment Counselor. I had recently lowered his Lasix due [...] Am and 20 mg PM prescribed by Treatment Counselor. Pt developed some bilateral ankle edema due [...] Furosemide 20 mg po BID prescribed by Treatment Counselor. Pt developed some bilateral ankle edema due [...] Furosemide 20 mg po BID prescribed by Treatment Counselor. Pt developed some bilateral ankle edema due [...] clinical impression. Plan: Breast center referral at [facility] Assessment & Plan (02/01/2024 1:36 PM EDT): [...] DEPARTMENT Provider, Generic External Data 02/27/[address] [facility] [address] [place] [phone] Pedro Pulliam MD Critical lab 02/27/2025 Orders Only GENERIC EXTERNAL DATA DEPARTMENT Provider, Generic External Data 02/21/[address] [facility] MED[facility] [address] [place] [address] Justa Christianson, RN Results; Lab Orders; Referral 02/20/2025 Orders Only [facility] [place] [address] Pedro Pulliam MD Epididymoorchitis (Primary Dx) 02/12/[address] [address] Pedro Pulliam MD Paperwork/Forms 02/11/[address] [address] Pedro Pulliam MD Vitamin D deficiency 02/07/2025 Orders Only GENERIC EXTERNAL DATA DEPARTMENT Provider, Generic External Data 01/16/2025 Telephone [facility] [place] [place] [address] Justa Christianson, RN Interoffice Communication 01/15/[address] [address] Pedro Pulliam MD Referral 01/11/2025 1:15 PM EST Office Visit [facility] [place] [place] [address] Pedro Pulliam MD Primary hypertension (Primary Dx); KARINA (obstructive sleep apnea); Longstanding persistent atrial fibrillation (CMS/HCC); Gynecomastia; Stage 3b chronic kidney disease (CMS/HCC); Iron deficiency; Mixed hyperlipidemia 01/11/2025 Travel 01/10/2025 Orders Only GENERIC EXTERNAL DATA DEPARTMENT Provider, Generic External Data 01/02/2025 Patient Outreach [facility] [place] [address] Pedro Pulliam MD Pre-visit Planning (SDOH Screening negative and Tobacco screening negative) 12/28/2024 Telephone [facility] [place] [place] [address] Pedro Pulliam MD Chart Prep 12/20/2024 Orders [...] EDT Office Visit [facility] MED[facility] [address] [place] [address] Pedro Pulliam MD [address] [place] [address] Health Maintenance Due Date Last Done Comments [...] included. Protime 26.2(H) 11.1 - 13.5 sec [facility] 03/13/2025 1:06 PM EDT 03/13/2025 1:07 PM EDT us Generic External Data Provider LAB BLOOD ORDERAB LES Final Result [facility] [address] [place] [phone] * (ABNORMAL) ~PT, ~INR - ANTI COAG CLINIC (03/13/2025 1:06 PM EDT) Only the most recent of6 resultswithin the time period is included. Prothrombin Time INR 2.2(H) 0.9 - 1.1 [facility] Comment:METER #: [id number] TERNATIONAL NORMALIZED RATIO (INR) REFERENCE RANGES Reference [...] ORDERAB LES Final Result Performing Organization Address [facility] de Phone Number [facility] [address] [place] [phone] * (ABNORMAL) Prothrombin Time-INR (02/27/2025 1:31 PM EDT) Prothrombin Time 86.4(H) 10.9 - 12.4 SEC [facility] INTERNATIONAL NORM RATIO 7.4(HH) 0.9 - 1.1 [facility] Comment:RESULTS OF INR BURGOS D [...] ORDERAB LES Final Result Performing Organization Address City/[facility] Co de Phone Number [facility] [address] [place] [address] [phone] * (ABNORMAL) Urinalysis, Complete, with Reflex to Culture (02/22/2025 9:20 AM EDT) Color Urine Dark Yellow [facility] Appearance Urine Turbid [facility] PH 5.0 5.0 - 9.0 [facility] Glucose Urine UA Negative Negative mg/dL [facility] Urine Blood Negative Negative [facility] Specific [place]lick - Urine 1.025 1.005 - 1.025 [facility] Urine Protein 30 (1+)(A) Neg-Trace mg/dL [facility] Urine Ketones 15 Negative mg/dL [facility] Nitrite Urine Negative Negative [facility] Leukocyte Esterase Urine Trace(A) Negative [facility] RBC Urine 0-2 0 - 2 /HPF [facility] Urine WBC 0-5 0 - 5 /HPF [facility] Urine Squamous Epithelial Cell 3-5 0 - 2 /HPF [facility] CALCIUM OXALATE CRYSTAL, UR Present [facility] Urine Bacteria None Seen None Seen [facility] Hyaline Casts, Urine 3-5 0 - 2 /LPF [facility] GRANULAR CASTS (#/HPF) IN URINE Present [facility] Waxy Casts Present [facility] Urine 02/22/2025 9:20 AM EDT 02/22/2025 11:25 AM EDT Narrative [facility] - 02/22/2025 12:09 PM EDT Urine, Clean Catch us Pedro Julian MD LAB URINE ORDERABLES Final Result [facility] [address] [place] [address] [phone] * US Scrotum (02/19/2025 3:57 PM EDT) Anatomical Region Laterality Modality Body Ultrasound 02/19/2025 3:57 PM EDT Narrative 02/19/2025 4:56 PM EDT ? [facility] ?[address] ?[place] [address] ? Ultrasound Report ? Signed ? Patient: Pablo Quinteros,Jamie ?MR#: ?? [id number] ? : 1945 ?Acct:[id number] ? Age/Sex: 79 / M ?ADM Date: 02/19/25 ? Loc: HO.US ? Attending Dr: Niko Salamanca MD ? Ordering Physician: Pedro Webber MD ?? Date of Service: 02/19/25 ?? Procedure(s): US scrotum ?? Accession Number(s): [id number] ? cc: Pedro Webber MD ? EXAMINATION: [...] DD/ 1557 ? TD/TT: 02/19/25 1613 ? Airline Security Representative: ? Procedure Note Donotuseinterpreter, Image - 02/19/[address] [address] Ultrasound Report Signed Patient: Jaime CarpioR#: [id number] : 6Acct:[id number] Age/Sex: 79 / MADM Date: 02/19/25 Loc: HO.US Attending Dr: Niko Salamanca MD Ordering Physician: Pedro Webber MD Date of Service: 02/19/25 Procedure(s): US scrotum Accession Number(s): [id number] cc: Pedro Webber MD EXAMINATION: US SCROTUM [...] 02/19/25 1653 DD/ 1557 TD/TT: 02/19/25 1613 Airline Security Representative: us Pedro Julian MD IMG US PROCEDURES Ortiz david Result - Final * US RENAL BI (02/19/2025 3:38 PM EDT) Anatomical Region Laterality Modality Abdomen Ultrasound 02/19/2025 3:38 PM EDT Narrative 02/19/2025 4:52 PM EDT ? [facility] ?[address] ?[place] [address] ? Ultrasound Report ? Signed ? Patient: Pablo Quinteros,Jamie ?MR#: ?? [id number] ? : 1945 ?Acct:[id number] ? Age/Sex: 79 / M ?ADM Date: 02/19/25 ? Loc: HO.US ? Attending Dr: Niko Salamanca MD ? Ordering Physician: Niko Salamanca MD ?? Date of Service: 02/19/25 ?? Procedure(s): US renal BI ?? Accession Number(s): [id number] ? cc: Niko Salamanca MD; Pedro Webber [...] DD/ 1538 ? TD/TT: 02/19/25 1548 ? Airline Security Representative: MSM ? Procedure Note Yazan Peters - 02/19/2025 [place] [address] Ultrasound Report Signed Patient: Rik Carpio#: [id number] : 6Acct:[id number] Age/Sex: 79 / MADM Date: 02/19/25 Loc: HO.US Attending Dr: Niko Salamanca MD Ordering Physician: Niko Salamanca MD Date of Service: 02/19/25 Procedure(s): US renal BI Accession Number(s): [id number] cc: Niko Salamanca MD; Pedro Webber MD [...] 02/19/25 1650 DD/ 1538 TD/TT: 02/19/25 1548 Airline Security Representative: [place] [facility] External Provider IMG US PROCEDURES Edited Result - Final * TSH with Reflex to Free T4 (01/16/2025 9:13 AM EDT) TSH reflex Free T4 1.80 0.32 - 4.0 uIU/mL [facility] Blood Venous blood specimen / Unknown 01/16/2025 9:13 AM EDT 01/16/2025 11:29 AM EDT Pedro Julian MD LAB BLOOD ORDERABLES Final Result [facility] [address] [place] [phone] * hCG, Total, Quantitative (01/16/2025 9:13 AM EDT) HCG Quantitative <2 mIU/mL [facility] Blood Venous blood specimen / Unknown 01/16/2025 9:13 AM EDT 01/16/2025 11:29 AM EDT Pedro Julian MD LAB BLOOD ORDERABLES Final Result [facility] [address] [place] [address] [phone] * (ABNORMAL) Lipid Panel, Standard (01/16/2025 9:13 AM EDT) Triglycerides 40 <150 mg/dL [facility] Comment:Desirable Triglyceri de: less than 150 mg/dLBorderline High Triglyceride 150-199 mg/dLHigh Triglyceride: 200-499 mg/dLVery High Triglyceride: greater than or equal to 5OO mg/dL Cholesterol 93 <200 mg/dL [facility] Comment:Desirable Cholestero l: less than 200 mg/dLBorderline High Cholesterol: 200-239 mg/dLHigh Cholesterol: greater than 239 mg/dL LDL Cholesterol Calculated 58 <100 mg/dL [facility] Comment:Desirable LDL: less than 100 [...] Julian MD LAB BLOOD ORDERABLES Final Result [facility] [address] [place] [address] [phone] * (ABNORMAL) Basic Metabolic Panel (01/16/2025 9:13 AM EDT) Sodium 141 135 - 145 mmol/L [facility] Potassium 4.5 3.3 - 5.1 mmol/L [facility] Chloride 111(H) 96 - 108 mmol/L [facility] Carbon Dioxide 25 22 - 29 mmol/L [facility] Anion Gap 10(L) 12 - 20 [facility] Urea Nitrogen (BUN) 28(H) 9 - 16 mg/dL [facility] Creatinine, Serum 1.90(H) 0.5 - 1.4 mg/dL [facility] Estimated Glomerular Filt Rate 34 [facility] Comment:Chronic Kidney Disea se: Estimated GFR < 60 mL/min/1.16g9Nttjvx Kidney Disease: Estimated GFR < 15 mL/min/1.73m2 Glucose 93 60 - 115 mg/dL [facility] Calcium 8.7 8.4 - 10.2 mg/dL [facility] Blood Venous blood specimen / Unknown 01/16/2025 9:13 AM EDT 01/16/2025 11:29 AM EDT Pedro Julian MD LAB BLOOD ORDERABLES Final Result Performing Organization Address City/[facility]/ZIP Co de Phone Number [facility] [address] [place] [address] [phone] * Prolactin (01/16/2025 8:13 AM EDT) Prolactin 9.2 2.0 - 18.0 ng/mL [facility] Comment:THIS TEST WAS PERFOR MED AT:[facility] [place] [phone] SEGURA MD Blood Venous blood specimen / Unknown 01/16/2025 8:13 AM EDT 01/16/2025 11:29 AM EDT Pedro Julian MD LAB BLOOD ORDERABLES Final Result Performing Organization Address City/[facility] Co de Phone Number [facility] [address] [place] [phone] * DHEA Sulfate (01/16/2025 8:13 AM EDT) Pathologist [facility] DHEA Sulfate 44 3 - 225 mcg/dL [facility] Comment:THIS TEST WAS PERFOR MED AT:[employer] [address] [phone] SEGURA MD Blood Venous blood specimen / Unknown 01/16/2025 8:13 AM EDT 01/16/2025 11:29 AM EDT Pedro Julian MD LAB BLOOD ORDERABLES Final Result Performing Organization Address [facility] Co de Phone Number [facility] [address] [place] [phone] * (ABNORMAL) Estradiol (01/16/2025 8:13 AM EDT) [facility] Estradiol Ultra Sensitive 37(A) < OR = 29 pg/mL [facility] Comment:This test was develo ped and its analytical performancecharacteristics have been determined by [employer].It has not been cleared or approved by the FDA. This assayhas been validated pursuant to the CLIA regulations and isused for clinical purposes.THIS TEST WAS PERFORMED AT:[employer] [id number] [place] [id number] RODRIGUEZ MD,PHD,VIPUL Blood Venous blood specimen / Unknown 01/16/2025 8:13 AM EDT 01/16/2025 11:29 AM EDT Pedro Julian MD LAB BLOOD ORDERABLES Final Result Performing Organization Address City/[facility] Co de Phone Number [facility] [address] [place] [address] [phone] * Testosterone, Free (Dialysis) And Total, MS (01/16/2025 8:13 AM EDT) Testosterone, Total 498 250 - 1100 ng/dL [facility] Comment:Men with clinically significant hypogonadalsymptoms and testosterone values repeatedly inthe range of the 200-300 ng/dL or less, maybenefit from testosterone treatment afteradequate risk and benefits counseling.For additional information, please refer tohttp://education.[employer]/faq/KhvpcMweqphanhdcqQLWWUZLCV018(This link is being provided for informational/educational purposes only.)This test was developed and its analytical performancecharacteristics have been determined by [employer] [place] [place]. It hasnot been cleared or approved by the U.S. Food and DrugAdministration. This assay has been validated pursuantto the CLIA regulations and is used for clinicalpurposes. Testosterone, Free 60.8 30.0 - 135.0 pg/mL [facility] Comment:This test was develo ped and its analytical performancecharacteristics have been determined by [employer] [place] [place]. It hasnot been cleared or approved by the U.S. Food and DrugAdministration. This assay has been validated pursuantto the CLIA regulations and is used for clinicalpurposes.THIS TEST WAS PERFORMED AT:[employer] [id number] [place] [address]VHAKQGPRAMSES CULLEN MD,PHD Blood Venous blood specimen / Unknown 01/16/2025 8:13 AM EDT 01/16/2025 11:29 AM EDT us Pedro Julian MD LAB BLOOD ORDERABLES Final Result [facility] [address] [place] [address] [phone] * (ABNORMAL) LH (01/16/2025 8:13 AM EDT) Lutenizing Hormone 37.7(A) 1.6 - 15.2 mIU/mL [facility] Comment:THIS TEST WAS PERFOR MED AT:[employer] [address] [phone] SEGURA MD Blood Venous blood specimen / Unknown 01/16/2025 8:13 AM EDT 01/16/2025 11:29 AM EDT Pedro Julian MD LAB BLOOD ORDERABLES Final Result Performing Organization Address [facility] Co de Phone Number [facility] [address] [place] [phone] * (ABNORMAL) FSH (01/16/2025 8:13 AM EDT) Follicle Stimulating Hormone 49.9(A) 1.4 - 12.8 mIU/mL [facility] Comment:THIS TEST WAS PERFOR MED AT:[employer] [address] [address]GXMCWCATARINO SEGURA MD Blood Venous blood specimen / Unknown 01/16/2025 8:13 AM EDT 01/16/2025 11:29 AM EDT Pedro Julian MD LAB BLOOD ORDERABLES Final Result Performing Organization Address [facility] Co de Phone Number [facility] [address] [place] [phone] * BI Mammogram Diagnostic Tomosynthesis Bilateral (04/11/2024 3:15 PM EDT) Anatomical Region Laterality Modality Breast Bilateral Mammography 04/11/2024 3:15 PM EDT Narrative 04/11/2024 4:59 PM EDT ? [facility] ? [address] ?[place] [address] ? Mammography Report ? Signed ? Patient: Pablo Quinteros,Jamie ?MR#: ?? [id number] ? : 1945 ?Acct:[id number] ? Age/Sex: 79 / M ?ADM Date: 04/11/24 ? Loc: HO.MAMMO ? Attending Dr: Pedro Webber MD ? Ordering Physician: Pedro Webber MD ?Resu ?? lts: 2Benign Findings ? Date of Service: 04/11/24 ?Follow Up: 1 Year From Orig ?? inal Mammogram ? Procedure(s): MM tomosynthesis diagnostic BI ?? Accession Number(s): [id number] ? cc: Pedro Webber MD ? EXAMINATION: [...] 1654 ? DD/ 1515 ? TD/TT: ? Airline Security Representative: ? Procedure Note Donotuseinterpreter, Image - 04/11/2024 [facility] [address] [place] [address] Dr. Mckeon, CHERYLE [address] Mammography Report Signed Patient: Rik Carpio#: [id number] : 6Acct:[id number] Age/Sex: 79 / MADM Date: 04/11/24 Loc: HO.MAMMO Attending Dr: Pedro Webber MD Ordering Physician: Pedro Webber MDResu lts: 2Benign Findings Date of Service: 04/11/24Follow Up: 1 Year From Orig inal Mammogram Procedure(s): MM tomosynthesis diagnostic BI Accession Number(s): [id number] cc: Pedro Webber MD EXAMINATION: MM DIAGNOSTIC [...] in OV> 04/11/24 1654 DD/ 1515 TD/TT: Airline Security Representative: Pedro Julian MD IMG BI PROCEDURES Fin [...] a test for HCV RNA (test code 92386) is suggested. ?? For additional information please refer to http://education.[employer]/faq/SLC39i9 (This link is being provided for informational/ educational purposes only.) ?? 12/24/2021 8:24 AM EST Pedro Julian MD HISTORICAL/NON ORDERA BLE LABS Final Result [facility] [address] from Last 3 Months or Most Recently Relevant to Health Maintenance Insurance [employer] [id number] Care Teams Children'S Literature Professor Relationship Specialty Start Date End Date Pedro Pulliam MD [address] [place] [phone] PCP - General Internal Medicine 09/10/14 Niko Salamanca MD [address] [place] [address] Drive [address] [place] [address] Nephrology 01/16/25
--- OUTSIDE RECORDS SUMMARY | 2025-03-13 14:34 | XMS_ITS | Encounter Summary ---
Author Organization [employer] Address [address] [place] [address] Care Team Providers Care Hydraulic Rock Drill Operator Name Role Phone Pedro Pulliam MD Primary Care Provide r Niko Salamanca MD Unavailable [phone] Reason for Visit * Reason Onset Date Comments OV 03/1602/17/2024 Encounter Details Date Type Department Care Team (Late st Contact Info) Description 02/17/2024 Telephone [facility] MEDICINE [address] [place], [place] [phone] Pedro Pulliam MD [address] [place], [place] [phone] OV 03/16 Social History Tobacco Use Types [...] any questions you can contact pt at [phone]. documented in this encounter Plan of Treatment Upcoming Encounters Date Type Department Care Team (Late st Contact Info) Description 04/17/2025 1:15 PM EDT Office Visit [facility] MEDICINE [address] [place] [address] Pedro Pulliam MD [address] [place] [address] documented as of this encounter Visit Diagnoses Not on filedocumented in this encounter Additional Health Concerns Assessment Noted Time PHQ-9 Depression Total Score: 1 09/23/20 23 1:21 PM EST documented as of this encounter Care Teams Hydraulic Rock Drill Operator Relationship Specialty Start Date End Date Pedro Pulliam MD [address] [place] [address] PCP - General Internal Medicine 09/10/14 Niko Salamanca MD [address] [place] [address] Nephrology 01/16/25 documented as of this encounter
--- OUTSIDE RECORDS SUMMARY | 2025-03-13 14:34 | XMS_ITS | Encounter Summary ---
Author Organization [employer] Address [address] [place] [address] Care Team Providers Care Board Writer Name Role Phone Pedro Pulliam MD Primary Care Provide r Niko Salamanca MD Unavailable [phone] Reason for Visit * Reason Onset Date Comments follow up needed 11/20/2024 Encounter Details Date Type Department Care Team ([facility] st Contact Info) Description 11/20/2024 Telephone [facility] MEDICINE [address] [place], [place] [phone] Pedro Pulliam MD [address] [place], [place] [phone] follow up needed Social History Tobacco Use [...] 11/21/2024 10:42 AM EST TC [facility] office and spoke [...] 12:47 PM EST Tc from Randa with [facility] plastic surgery reporting that they saw [...] 1:15 PM EDT Office Visit [facility] MEDICINE [address] [place] [address] Pedro Pulliam MD [address] [place] [address] documented as of this encounter Visit Diagnoses Not on filedocumented in this encounter Additional Health Concerns Assessment Noted Time PHQ-9 Depression Total Score: 0 10/17/20 1:50 PM EST documented as of this encounter Care Teams Board Writer Relationship Specialty Start Date End Date Pedro Pulliam MD [address] [place] [address] PCP - General Internal Medicine 09/10/14 Niko Salamanca MD [address] [place] [address] Drive [address] [place] [address] Nephrology 01/16/25 documented as of this encounter
--- OUTSIDE RECORDS SUMMARY | 2025-03-13 14:34 | XMS_ITS | Encounter Summary ---
Author Organization [employer] Address [address] [address] [place] [address] Care Team Providers Care Recreation Program Coordinator Name Role Phone Pedro Pulliam MD Primary Care Provide r Niko Salamanca MD Unavailable Encounter Details Date Type Department Care Team ([facility] st Contact Info) Description 05/31/2024 Telephone [facility] MEDICINE [address] [place], [place] [phone] Pedro Pulliam MD [address] [place], [place] [phone] Social History Tobacco Use Types Packs/Day Years [...] line 05/31/24 at 1:21 PM Name of Caller/Facility:[facility] Callback number: [phone] Reason for Call: INR 1.4 no missed [...] Description 04/17/2025 1:15 PM EDT Office Visit [facility]ICINE [address] [place] [address] Pedro Pulliam MD [address] [place] [address] documented as of this encounter Visit Diagnoses Not on filedocumented in this encounter Additional Health Concerns Assessment Noted Time PHQ-9 Depression Total Score: 1 09/23/20 23 1:21 PM EST documented as of this encounter Care Teams Recreation Program Coordinator Relationship Specialty Start Date End Date Pedro Pulliam MD [address] [place] [phone] PCP - General Internal Medicine 09/10/14 Niko Salamanca MD [address] [place] [address] [place] [address] Nephrology 01/16/25 documented as of this encounter
--- OUTSIDE RECORDS SUMMARY | 2025-03-13 14:34 | XMS_ITS | Encounter Summary ---
Author Organization [employer] Address [address] [facility] 7t [place] [address] Care Team Providers Care Nuclear Engineer Name Role Phone Pedro Pulliam MD Primary Care Provide r Niko Salamanca MD Unavailable [phone] Encounter Details Date Type Department Care Team (Late st Contact Info) Description 02/01/2023 Orders Only [facility] & PEDS [address] [place] [address] Shira Castano LPN Social History Tobacco Use [...] 1:15 PM EDT Office Visit [facility] MEDICINE [address] [place] [address] Pedro Pulliam MD [address] [place] [address] documented as of this encounter Visit Diagnoses Not on filedocumented in this encounter Care Teams Nuclear Engineer Relationship Specialty Start Date End Date Pedro Pulliam MD [address] [place], [place] [phone] PCP - General Internal Medicine 09/10/14 Niko Salamanca MD [address] [place] [address] Nephrology 01/16/25 documented as of this encounter
--- OUTSIDE RECORDS SUMMARY | 2025-03-13 14:34 | XMS_ITS | Encounter Summary ---
Author Organization [employer] Address [address] [facility] 7t [place] [address] Care Team Providers Care Banquet Houseperson Name Role Phone Pedro Pulliam MD Primary Care Provide r Niko Salamanca MD Unavailable [phone] Encounter Details Date Type Department Care Team (Late st Contact Info) Description 01/06/2023 Orders Only [facility] MED & PEDS [address] [place] [address] Shira Castano LPN Social History Tobacco Use [...] 04/17/2025 1:15 PM EDT Office Visit [facility] MEDICINE [address] [place] [address] Pedro Pulliam MD [address] [place] [address] documented as of this encounter Visit Diagnoses Not on filedocumented in this encounter Care Teams Banquet Houseperson Relationship Specialty Start Date End Date Pedro Pulliam MD [address] [place], [place] [phone] PCP - General Internal Medicine 09/10/14 Niko Salamanca MD [address] [place] [address] Nephrology 01/16/25 documented as of this encounter
--- OUTSIDE RECORDS SUMMARY | 2025-03-13 14:34 | XMS_ITS | Encounter Summary ---
Author Organization [facility] Address [address] [place] [address] 7t [place] [address] Care Team Providers Care Turf Manager Name Role Phone Pedro Pulliam MD Primary Care Provide r Niko Salamanca MD Unavailable [phone] Encounter Details Date Type Department Care Team (Late st Contact Info) Description 05/31/2023 Orders Only [facility] MEDICINE [address] [place] [address] Shanita Pfeiffer LPN Social History Tobacco Use [...] Office Visit [facility] MEDICINE [address] [place] [address] Pedro Pulliam MD [address] [place] [address] documented as of this encounter Visit Diagnoses Not on filedocumented in this encounter Care Teams Turf Manager Relationship Specialty Start Date End Date Pedro Pulliam MD [address] [place] [address] PCP - General Internal Medicine 11/3/14 Niko Salamanca MD [address] [place] [address] Nephrology 01/16/25 documented as of this encounter
--- OUTSIDE RECORDS SUMMARY | 2025-03-13 14:34 | XMS_ITS | Encounter Summary ---
Author Organization [employer] Address [address] [facility] 7t [place] [address] Care Team Providers Care Professor Of Early Childhood Education Name Role Phone Pedro Pulliam MD Primary Care Provide r Niko Salamanca MD Unavailable [phone] Reason for Visit * Reason Onset Date Comments Med Refill 2023 Encounter Details Date Type Department Care Team (Late st Contact Info) Description 2023 Refill [facility] MEDICINE [address] [place] [address] Pedro Pulliam MD [address] [place] [address] Atrial fibrillation, unspecified type (CMS/HCC) (Primary Dx) [...] Description 04/17/2025 1:15 PM EDT Office Visit [facility] MEDICINE [address] [place] [address] Pedro Pulliam MD [address] [place] [address] documented as of this encounter Visit Diagnoses Diagnosis Atrial fibrillation, unspecified type (CMS/HCC)- Primary documented in this encounter Care Teams Professor Of Early Childhood Education Relationship Specialty Start Date End Date Pedro Pulliam MD [address] [place] [address] PCP - General Internal Medicine 09/10/14 Niko Salamanca MD [address] [place] [address] Drive [address] [place] [address] Nephrology 01/16/25 documented as of this encounter
--- OUTSIDE RECORDS SUMMARY | 2025-03-13 14:34 | XMS_ITS | Clinical Summary ---
Author Organization [facility] Address [address] [address] Care Team Providers Care Inside Meter Tester Name Role Phone Pedro Snow MD Primary [...] age to complete this topic Care Teams Inside Meter Tester Relationship Specialty Start Date End Date Pedro Snow MD PCP - General 11/18/20
--- OUTSIDE RECORDS SUMMARY | 2025-03-13 14:34 | XMS_ITS | Encounter Summary ---
Author Organization [employer] Address [address] 7[address] [place] [address] Care Team Providers Care Changeover Operator Name Role Phone Pedro Pulliam MD Primary Care Provide r Niko Salamanca MD Unavailable Reason for Visit * Reason Comments Med Refill Encounter Details Date Type Department Care Team (Late st Contact Info) Description 06/02/2024 Refill [facility] MEDICINE [address] [place], [place] [phone] Pedro Pulliam MD [address] [place], [place] [phone] Primary hypertension; Stage 3 chronic kidney disease, [...] Description 04/17/2025 1:15 PM EDT Office Visit [facility] MEDICINE [address] [place] [address] Pedro Pulliam MD [address] [place] [address] documented as of this encounter Visit Diagnoses Diagnosis Primary hypertension Unspecified essential hypertension Stage 3 chronic kidney disease, unspecified whether stage 3a or 3b CKD ([facility]/HCC) Nonrheumatic tricuspid valve regurgitation documented in this encounter Additional Health Concerns Assessment Noted Time PHQ-9 Depression Total Score: 1 09/23/20 23 1:21 PM EST documented as of this encounter Care Teams Changeover Operator Relationship Specialty Start Date End Date Pedro Pulliam MD [address] [place] [address] PCP - General Internal Medicine 09/10/14 Niko Salamanca MD [address] [place] [address] Nephrology 01/16/25 documented as of this encounter
--- OUTSIDE RECORDS SUMMARY | 2025-03-13 14:34 | XMS_ITS | Clinical Summary ---
Author Organization [facility] Address [address] [place] [address] Care Team Providers Care Gyroscope Technician Name Role Phone Unavailable Primary Care Provider [...] Documents on File Type Date Recorded Patient Heel Seat Flap Stapler Expl anation Health Care Decision (hx) 01/10/2020 AD PHILLIP DIRECTIVE
--- OUTSIDE RECORDS SUMMARY | 2025-03-13 14:34 | XMS_ITS | Encounter Summary ---
Author Organization [employer] Address [address] 7t [place] [address] Care Team Providers Care Oak Tanner Name Role Phone Pedro Pulliam MD Primary Care Provide r Niko Salamanca MD Unavailable [phone] Encounter Details Date Type Department Care [...] Description 04/17/2025 1:15 PM EDT Office Visit [facility] MEDICINE [address] [place] [address] Pedro Pulliam MD [address] [place] [address] documented as of this encounter Procedures Procedure Name Priority Date/Time Associated Diagnosis Comments PROTHROMBIN TIME WHOLE BLD POC Routine 03/13/2025 1:06 PM EDT ~PT, ~INR - ANTI COAG CLINIC Routine 03/13/2025 1:06 PM EDT documented in this encounter Results * (ABNORMAL) PROTHROMBIN TIME WHOLE BLD POC (03/13/2025 1:06 PM EDT) Protime 26.2(H) 11.1 - 13.5 sec [facility] 03/13/2025 1:06 PM EDT 03/13/2025 1:07 PM EDT us Generic External Data Provider LAB BLOOD ORDERAB LES Final Result [facility] [address] [place] [phone] * (ABNORMAL) ~PT, ~INR - ANTI COAG CLINIC (03/13/2025 1:06 PM EDT) Prothrombin Time INR 2.2(H) 0.9 - 1.1 [facility] Comment:METER #: [id number] TERNATIONAL NORMALIZED RATIO (INR) REFERENCE RANGES Reference [...] Provider LAB BLOOD ORDERAB LES Final Result [facility] [address] [place] [address] [phone] documented in this encounter Visit Diagnoses Not on filedocumented in this encounter Additional Health Concerns Assessment Noted Time PHQ-9 Depression Total Score: 0 10/17/20 24 1:50 PM EST documented as of this encounter Care Teams Oak Tanner Relationship Specialty Start Date End Date Pedro Pulliam MD [address] [place] [address] PCP - General Internal Medicine 09/10/14 Niko Salamanca MD [address] [place] [address] Nephrology 01/16/25 documented as of this encounter
--- OUTSIDE RECORDS SUMMARY | 2025-03-13 14:34 | XMS_ITS | Encounter Summary ---
Author Organization [facility] Address [address] [place] [address] 7t [place] [address] Care Team Providers Care Salesperson [employer] Name Role Phone Pedro Pulliam MD Primary Care Provide r Niko Salamanca MD Unavailable [phone] Encounter Details Date Type Department Care Team (Late st Contact Info) Description 02/25/2023 Orders Only [facility] MEDICINE [address] [place] [address] Shanita Pfeiffer LPN Social History Tobacco Use [...] Office Visit [facility] MEDICINE [address] [place] [address] Pedro Pulliam MD [address] [place] [address] documented as of this encounter Visit Diagnoses Not on filedocumented in this encounter Care Teams Salesperson [employer] Relationship Specialty Start Date End Date Pedro Pulliam MD [address] [place] [address] PCP - General Internal Medicine 11/3/14 Niko Salamanca MD [address] [place] [address] Nephrology 01/16/25 documented as of this encounter
== END 2025-03-13 13:49 | disposition home or self-care (01) ==
LOC: HO.HKA 13:18
PROVIDERS: PCP Internal Medicine; Visit Provider Internal Medicine Hypertension Specialist
DX: I12.9 Hypertensive chronic kidney disease with stage 1 through stage 4 chronic kidney disease, or unspecified chronic kidney disease (principal); N18.9 Chronic kidney disease, unspecified; D63.1 Anemia in chronic kidney disease; N40.1 Benign prostatic hyperplasia with lower urinary tract symptoms; N13.8 Other obstructive and reflux uropathy
CPT/HCPCS: 99214

== ENCOUNTER 2025-04-03 12:50 | Outpatient (AMB) | payer OTHER, SELFPAY ==
--- OUTSIDE RECORDS SUMMARY | 2025-04-03 12:54 | XMS_ITS | Clinical Summary ---
Author Organization [employer] Address [address] [place] [address] Care Team Providers Care Can Maker Name Role Phone Pedro Pulliam MD Primary Care Provide r Niko Salamanca MD Unavailable [phone] Allergies No known active allergies Medications Aspirin Low Dose 81 MG EC tabletIndications: Primary hypertension TAKE 1 TABLET BY MOUTH EVERY DAY 30 tablet 6 4 Active warfarin (Coumadin) 5 MG tabletIndications: Atrial fibrillation, unspecified type (CMS/HCC) TAKE 1 TABLET BY MOUTH EVERY DAY DIRECTED BY COUMADIN CLINIC 90 tablet 4 Active warfarin (Coumadin) 5 MG tabletIndications: Atrial fibrillation, unspecified type (CMS/HCC) TAKE 1 TABLET BY MOUTH EVERY DAY DIRECTED BY COUMADIN CLINIC 90 tablet 2 4 Active furosemide (Lasix) 20 MG tabletIndications: Stage 3 chronic kidney disease, unspecified whether stage 3a or 3b CKD (CMS/HCC),Primary hypertension,Nonrh eumatic tricuspid valve regurgitation 1 tab daily 60 tablet 4 Active lisinopril 40 MG tabletIndications: Primary hypertension TAKE 1 TABLET BY MOUTH ONCE DAILY 90 tablet 1 4 Active ferrous sulfate (FeroSul) 325 (65 Fe) MG tabletIndications: Iron deficiency Take 1 tablet (325 mg) by mouth Once per day. 90 tablet 5 Active atorvastatin (Lipitor) 80 MG tabletIndications: Mixed hyperlipidemia Take 1 tablet (80 mg) by mouth at bedtime. 90 tablet 5 Active amLODIPine (Norvasc) 5 MG tabletIndications: Primary hypertension Take 1 tablet (5 mg) by mouth Once per day. 90 tablet 5 Active cholecalciferol (Vitamin D-3) 25 MCG tabletIndications: Vitamin D deficiency TAKE 1 TABLET BY MOUTH ONCE DAILY 90 tablet 5 Active carbamide peroxide (Debrox) 6.5 % otic solutionIndication s:Impacted cerumen of left ear Administer 5 drops into the left ear 2 times daily. 15 mL 5 Active Active Problems Problem Noted Date Diagnosed [...] pt currently undergoing PT with good results. [facility] care 09/23/2023 Assessment & Plan (10/17/2024 [...] showed diverticulosis only by Dr connors at [facility] Mixed hyperlipidemia 08/13/2015 09/15/2023 Assessment & Plan [...] the past by his vascular surgeon at [facility] (Dr Lind) whose recommendation was conservative treatment, he saw NO role for any type of surgical intervention. He recommended to repeat the scan in 1 year and continue to take Asa 81 mg po daily. Pt was last seen by his director of infection control at [facility] 09/14/2023 recommended repeat US and ECHO [...] and lasix 20 mg daily prescribed by Junior Network Engineer. I had recently lowered his Lasix due [...] and lasix 20 mg daily prescribed by Junior Network Engineer. I had recently lowered his Lasix due [...] Am and 20 mg PM prescribed by Junior Network Engineer. I had recently lowered his Lasix due [...] Am and 20 mg PM prescribed by Junior Network Engineer. Pt developed some bilateral ankle edema due [...] Furosemide 20 mg po BID prescribed by Junior Network Engineer. Pt developed some bilateral ankle edema due [...] Furosemide 20 mg po BID prescribed by Junior Network Engineer. Pt developed some bilateral ankle edema due [...] clinical impression. Plan: Breast center referral at [facility] Assessment & Plan (02/01/2024 1:36 PM EDT): [...] Encounters Date Type Department Care Team Description 03/28/2025 10:20 AM EDT Office Visit [facility] [address] [place] [phone] Imani Lee MD Impacted cerumen of left ear (Primary Dx) 03/28/2025 Telephone [facility] [address] [place] [phone] Pedro Pulliam MD Medication Request 03/13/2025 Orders Only GENERIC EXTERNAL DATA DEPARTMENT Provider, Generic External Data 03/01/2025 Orders Only GENERIC EXTERNAL DATA DEPARTMENT Provider, Generic External Data 02/27/2025 Telephone [facility] [address] [place] [phone] Pedro Pulliam MD Critical lab 02/27/2025 Orders Only GENERIC EXTERNAL DATA DEPARTMENT Provider, Generic External Data 02/21/2025 Telephone [facility] [address], [place] [address] Justa Christianson, RN Results; Lab Orders; Referral 02/20/2025 Orders Only [facility] [address], [place] [address] Pedro Pulliam MD Epididymoorchitis (Primary Dx) 02/12/2025 Telephone [facility] [address], [place] [address] Pedro Pulliam MD Paperwork/Forms 02/11/2025 Refill [facility] [address], [place] [address] Pedro Pulliam MD Vitamin D deficiency 02/07/2025 Orders Only GENERIC EXTERNAL DATA DEPARTMENT Provider, Generic External Data 01/16/2025 Telephone [facility] [address], [place] [address] Justa Christianson, RN Interoffice Communication 01/15/2025 Telephone [facility] [address], [place] [address] Pedro Pulliam MD Referral 01/11/2025 1:15 PM EST Office Visit [facility] [address] [place] [address] Pedro Pulliam MD Primary hypertension (Primary Dx); KARINA (obstructive sleep apnea); Longstanding persistent atrial fibrillation ([facility]/HCC); Gynecomastia; Stage 3b chronic kidney disease ([facility]/HCC); Iron deficiency; Mixed hyperlipidemia 01/11/2025 Travel 01/10/2025 Orders Only GENERIC EXTERNAL DATA DEPARTMENT Provider, Generic External Data from Last 3 Months Immunizations Immunization Administration Dates Next Due Influenza High-dose Quadriva [...] Types Packs/Day Years Used Date Smoking Tobacco: Former Cigarettes Passive Smoke Exposure: Never Smokeless Tobacco: Never [...] Sign Reading Time Taken Comments Blood Pressure 136/58 03/28/2025 10:22 AM EDT gregory alcazar Pulse 80 03/28/2025 10:03 AM EDT Temperature 36.8 ??C (98.3 ??F) 03/28/2025 10:03 AM E DT Respiratory Rate 19 03/28/2025 10:03 AM EDT Oxygen Saturation 98% 03/28/2025 10:03 AM EDT Inhaled Oxygen Concentration - - Weight 70.9 kg (156 lb 4 oz) 03/28/2025 10:03 AM EDT Height 175.3 cm (5' 9 ) 03/28/2025 10:03 AM EDT Body Mass Index 23.07 03/28/2025 10:03 AM EDT Plan of Treatment Upcoming Encounters Date Type Department Care Team (Late st Contact Info) Description 04/17/2025 1:15 PM EDT Office Visit [facility] [address] [place] [address] Pedro Pulliam MD [address] [place] [address] Health Maintenance Due Date Last Done Comments Zoster Vaccines (3 of 3) 03/04/2020 01/08/2020, 02/07 RSV Patients and Patients Aged 60 years or older (1 - 1-dose 75+ series) 2021 COVID-19 Vaccine ( season) 2024 11/11/2021, 03/05/2021, 02/05/2021 Mammogram 04/11/2025 04/11/2024, 04/11/2024 Alcohol/Substance Use Screening 10/17/2025 10/17/2024 Depression Screening 10/17/2025 10/17/2024, 10/17/20 24 SDOH Screening 01/02/2026 01/02/2025 Tobacco Screening 03/28/2026 03/28/2025 Lipid Panel 01/16/2030 01/16/2025, 12/03/2023, 12/24/2021, Additional [...] TO MICROSCOPIC Routine 03/13/2025 2:16 PM EDT CULTURE, URINE, ROUTINE Routine 03/13/2025 2:16 PM EDT PROTHROMBIN TIME [...] COAG CLINIC Routine 01/10/2025 1:05 PM EST BI MAMMOGRAM DIAGNOSTIC TOMOSYNTHESIS BILATERAL Routine 04/11/2024 3:15 PM EDT Gynecomastia ZZZ HISTORICAL HEPATITIS C AB W/REFL TO HCV RNA, QN, PCR Routine 12/24/2021 8:24 AM EST from Last 3 Months or Most Recently Relevant to Health Maintenance Results * Urinalysis with Reflex to Microscopic (03/13/2025 2:16 PM EDT) Color Urine Yellow [facility] Appearance Urine Clear [facility] PH 5.0 5.0 - 9.0 [facility] Glucose Urine UA Negative Negative mg/dL [facility] Urine Blood Negative Negative [facility] Specific [place] - Urine 1.010 1.005 - 1.025 [facility] Urine Protein Negative Neg-Trace mg/dL [facility] Urine Ketones Negative Negative mg/dL [facility] Nitrite Urine Negative Negative [facility] Leukocyte Esterase Urine Negative Negative [facility] 03/13/2025 2:16 PM EDT 03/13/2025 3:07 PM EDT us Generic External Data Provider LAB URINE ORDERAB LES Final Result [facility] [address] [place] [address] [phone] * Culture, Urine, Routine (03/13/2025 2:16 PM EDT) Urine Urine specimen obtained by clean catch procedure / Unknown 03/13/2025 2:16 PM EDT 03/13/2025 3:07 PM EDT Comment:UACC Narrative [facility] - 03/14/2025 12:57 PM EDT Urine Culture Report Result Urine Culture < 10,000 cfu/ml Specimen Source: Urine clean catch Generic External Data Provider LAB MICROBIOLOGY - GENERAL ORDERABLES Final Result Performing Organization Address [facility] Co de Phone Number [facility] [address] [place] [phone] * (ABNORMAL) PROTHROMBIN TIME WHOLE BLD POC (03/13/2025 1:06 PM EDT) Only the most recent of5 resultswithin the time period is included. Protime 26.2(H) 11.1 - 13.5 sec [facility] 03/13/2025 1:06 PM EDT 03/13/2025 1:07 PM EDT Generic External Data Provider LAB BLOOD ORDERAB LES Final Result Performing Organization Address [facility] de Phone Number [facility] [address] [place] [phone] * (ABNORMAL) ~PT, ~INR - ANTI COAG CLINIC (03/13/2025 1:06 PM EDT) Only the most recent of5 resultswithin the time period is included. Prothrombin Time INR 2.2(H) 0.9 - 1.1 [facility] Comment:METER #: [id number] TERNATIONAL NORMALIZED RATIO (INR) REFERENCE RANGES Reference [...] ORDERAB LES Final Result Performing Organization Address [facility] Co de Phone Number [facility] [address] [place] [address] [phone] * (ABNORMAL) Prothrombin Time-INR (02/27/2025 1:31 PM EDT) Prothrombin Time 86.4(H) 10.9 - 12.4 SEC [facility] INTERNATIONAL NORM RATIO 7.4(HH) 0.9 - 1.1 [facility] Comment:RESULTS OF INR BURGOS D TO [...] ORDERAB LES Final Result Performing Organization Address [facility] Co de Phone Number [facility] [address] [place] [phone] * (ABNORMAL) Urinalysis, Complete, with Reflex to Culture (02/22/2025 9:20 AM EDT) Color Urine Dark Yellow [facility] Appearance Urine Turbid [facility] PH 5.0 5.0 - 9.0 [facility] Glucose Urine UA Negative Negative mg/dL [facility] Urine Blood Negative Negative [facility] Specific [place] - Urine 1.025 1.005 - 1.025 [facility] Urine Protein 30 (1+)(A) Neg-Trace mg/dL [facility] Urine Ketones 15 Negative mg/dL [facility] Nitrite Urine Negative Negative [facility] Leukocyte Esterase Urine Trace(A) Negative [facility] RBC Urine 0-2 0 - 2 /HPF [facility] Urine WBC 0-5 0 - 5 /HPF [facility] Urine Squamous Epithelial Cell 3-5 0 - 2 /HPF [facility] CALCIUM OXALATE CRYSTAL, UR Present [facility] Urine Bacteria None Seen None Seen [facility] Hyaline Casts, Urine 3-5 0 - 2 /LPF [facility] GRANULAR CASTS (#/HPF) IN URINE Present [facility] Waxy Casts Present [facility] Urine 02/22/2025 9:20 AM EDT 02/22/2025 11:25 AM EDT Narrative [facility] - 02/22/2025 12:09 PM EDT Urine, Clean Catch us Pedro Julian MD LAB URINE ORDERABLES Final Result Performing Organization Address [facility] Co de Phone Number [facility] [address] [place] [address] [phone] * US Scrotum (02/19/2025 3:57 PM EDT) Anatomical Region Laterality Modality Body Ultrasound 02/19/2025 3:57 PM EDT Narrative 02/19/2025 4:56 PM EDT ? [facility] ?[address] ?[place] [address] ? Ultrasound Report ? Signed ? Patient: Pablo Quinteros,Jamie ?MR#: ?? [id number] ? : 1945 ?Acct:[id number] ? Age/Sex: 79 / M ?ADM Date: 04/14/25 ? Loc: HO.US ? Attending Dr: Niko Salamanca MD ? Ordering Physician: Pedro Webber MD ?? Date of Service: 02/19/25 ?? Procedure(s): US scrotum ?? Accession Number(s): [id number] ? cc: Pedro Webber MD ? EXAMINATION: [...] DD/ 1557 ? TD/TT: 02/19/25 1613 ? Systems Spec: ? Procedure Note Fran, Yazan - 02/19/[address] [address] Ultrasound Report Signed Patient: Rik Carpio#: [id number] : 6Acct:[id number] Age/Sex: 79 / MADM Date: 02/19/25 Loc: HO.US Attending Dr: Niko Salamanca MD Ordering Physician: Pedro Webber MD Date of Service: 02/19/25 Procedure(s): US scrotum Accession Number(s): [id number] cc: Pedro Webber MD EXAMINATION: US SCROTUM [...] Miguel A Bradley MD in OV> 02/19/25 1756 DD/ 5247 TD/TT: 02/19/25 1613 Systems Spec: us Pedro Julian MD IMEnoc US PROCEDURES Ortiz david Result - Final * US RENAL BI (02/19/2025 3:38 PM EDT) Anatomical Region Laterality Modality Abdomen Ultrasound 02/19/2025 3:38 PM EDT Narrative 02/19/2025 4:52 PM EDT ? [facility] ?[address] ?[place] [address] ? Ultrasound Report ? Signed ? Patient: Pablo Quinteros,Jamie ?MR#: ?? [id number] ? : 1945 ?Acct:[id number] ? Age/Sex: 79 / M ?ADM Date: 02/19/25 ? Loc: HO.US ? Attending Dr: Niko Salamanca MD ? Ordering Physician: Niko Salamanca MD ?? Date of Service: 02/19/25 ?? Procedure(s): US renal BI ?? Accession Number(s): [id number] ? cc: Niko Salamanca MD; Pedro Webber [...] 04:50 PM EDT RP ? Dictated By: ?Denise,Mark Urena MD ? Signed By: ?<Electronically signed by Mark Walker MD in OV> ?02/19/250 ? DD/ 1538 ? TD/TT: 02/19/25 1548 ? Systems Spec: MSM ? Procedure Note Donsaurabhalizaaimee, Image - 02/19/2025 [place] [address] Ultrasound Report Signed Patient: Rik Carpio#: [id number] : 6Acct:[id number] Age/Sex: 79 / MADM Date: 02/19/25 Loc: HO.US Attending Dr: Niko Salamanca MD Ordering Physician: Niko Salamanca MD Date of Service: 02/19/25 Procedure(s): US renal BI Accession Number(s): [id number] cc: Niko Salamanca MD; Pedro Webber MD [...] 02/19/25 1650 DD/ 1538 TD/TT: 02/19/25 1548 Systems Spec: [facility] External Provider IMG US PROCEDURES Edited Result - Final * TSH with Reflex to Free T4 (01/16/2025 9:13 AM EDT) TSH reflex Free T4 1.80 0.32 - 4.0 uIU/mL [facility] Blood Venous blood specimen / Unknown 01/16/2025 9:13 AM EDT 01/16/2025 11:29 AM EDT Pedro Julian MD LAB BLOOD ORDERABLES Final Result [facility] [address] [place] [phone] * hCG, Total, Quantitative (01/16/2025 9:13 AM EDT) HCG Quantitative <2 mIU/mL [facility] Blood Venous blood specimen / Unknown 01/16/2025 9:13 AM EDT 01/16/2025 11:29 AM EDT Pedro Julian MD LAB BLOOD ORDERABLES Final Result Performing Organization Address City/[facility]/ZIP Co de Phone Number [facility] [address] [place] [phone] [phone] * (ABNORMAL) Lipid Panel, Standard (01/16/2025 9:13 AM EDT) Triglycerides 40 <150 mg/dL [facility] Comment:Desirable Triglyceri de: less than 150 mg/dLBorderline High Triglyceride 150-199 mg/dLHigh Triglyceride: 200-499 mg/dLVery High Triglyceride: greater than or equal to 5OO mg/dL Cholesterol 93 <200 mg/dL [facility] Comment:Desirable Cholestero l: less than 200 mg/dLBorderline High Cholesterol: 200-239 mg/dLHigh Cholesterol: greater than 239 mg/dL LDL Cholesterol Calculated 58 <100 mg/dL [facility] Comment:Desirable LDL: less than 100 mg/dLNear Optimal/Above Optimal LDL: 110- 129 mg/dLBorderline High LDL: 130-159 mg/dLHigh LDL: 160-189 mg/dLVery High LDL: greater than or equal to 190 mg/dL HDL Cholesterol 27(L) >40 mg/dL [facility] Comment:Desirable HDL: great er than 40 mg/dL Note: This HDL assay may give artificially low results in patients with liver disease. Blood Venous blood specimen / Unknown 01/16/2025 9:13 AM EDT 01/16/2025 11:29 AM EDT Pedro Julian MD LAB BLOOD ORDERABLES Final Result [facility] [address] [place] [phone] [phone] * (ABNORMAL) Basic Metabolic Panel (01/16/2025 9:13 AM EDT) Sodium 141 135 - 145 mmol/L [facility] Potassium 4.5 3.3 - 5.1 mmol/L [facility] Chloride 111(H) 96 - 108 mmol/L [facility] Carbon Dioxide 25 22 - 29 mmol/L [facility] Anion Gap 10(L) 12 - 20 [facility] Urea Nitrogen (BUN) 28(H) 9 - 16 mg/dL [facility] Creatinine, Serum 1.90(H) 0.5 - 1.4 mg/dL [facility] Estimated Glomerular Filt Rate 34 [facility] Comment:Chronic Kidney Disea se: Estimated GFR < 60 mL/min/1.00j7Yxfonf Kidney Disease: Estimated GFR < 15 mL/min/1.73m2 Glucose 93 60 - 115 mg/dL [facility] Calcium 8.7 8.4 - 10.2 mg/dL [facility] Blood Venous blood specimen / Unknown 01/16/2025 9:13 AM EDT 01/16/2025 11:29 AM EDT Pedro Julian MD LAB BLOOD ORDERABLES Final Result Performing Organization Address City/[facility]/ZIP Co de Phone Number [facility] [address] [place] [phone] * Prolactin (01/16/2025 8:13 AM EDT) Pathologist [facility] Prolactin 9.2 2.0 - 18.0 ng/mL [facility] Comment:THIS TEST WAS PERFOR MED AT:[employer] [address] [phone] SEGURA MD Blood Venous blood specimen / Unknown 01/16/2025 8:13 AM EDT 01/16/2025 11:29 AM EDT Pedro Julian MD LAB BLOOD ORDERABLES Final Result Performing Organization Address City/[facility] Co de Phone Number [facility] [address] [place] [phone] * DHEA Sulfate (01/16/2025 8:13 AM EDT) Pathologist [facility] DHEA Sulfate 44 3 - 225 mcg/dL [facility] Comment:THIS TEST WAS PERFOR MED AT:[employer] [address] [phone] SEGURA MD Blood Venous blood specimen / Unknown 01/16/2025 8:13 AM EDT 01/16/2025 11:29 AM EDT Pedro Julian MD LAB BLOOD ORDERABLES Final Result Performing Organization Address [facility] Co de Phone Number [facility] [address] [place] [phone] * (ABNORMAL) Estradiol (01/16/2025 8:13 AM EDT) Pathologist [facility] Estradiol Ultra Sensitive 37(A) < OR = 29 pg/mL [facility] Comment:This test was develo ped and its analytical performancecharacteristics have been determined by [employer].It has not been cleared or approved by the FDA. This assayhas been validated pursuant to the CLIA regulations and isused for clinical purposes.THIS TEST WAS PERFORMED AT:[employer]/[facility] [id number] [place] [address]WMIYRPHILLIP RODRIGUEZ MD,PHD,VIPUL Blood Venous blood specimen / Unknown 01/16/2025 8:13 AM EDT 01/16/2025 11:29 AM EDT Pedro Julian MD LAB BLOOD ORDERABLES Final Result Performing Organization Address [facility] Co de Phone Number [facility] [address] [place] [address] [phone] * Testosterone, Free (Dialysis) And Total, MS (01/16/2025 8:13 AM EDT) Testosterone, Total 498 250 - 1100 ng/dL [facility] Comment:Men with clinically significant hypogonadalsymptoms and testosterone values repeatedly inthe range of the 200-300 ng/dL or less, maybenefit from testosterone treatment afteradequate risk and benefits counseling.For additional information, please refer tohttp://education.[employer]/faq/BziaeCkgxtvujuhvjBPRHYXKUZ853(This link is being provided for informational/educational purposes only.)This test was developed and its analytical performancecharacteristics have been determined by [employer] [place], [place]. It hasnot been cleared or approved by the U.S. Food and DrugAdministration. This assay has been validated pursuantto the CLIA regulations and is used for clinicalpurposes. Testosterone, Free 60.8 30.0 - 135.0 pg/mL [facility] Comment:This test was develo ped and its analytical performancecharacteristics have been determined by [employer] [place], [place]. It hasnot been cleared or approved by the U.S. Food and DrugAdministration. This assay has been validated pursuantto the CLIA regulations and is used for clinicalpurposes.THIS TEST WAS PERFORMED AT:[employer] [id number] [place] [address]OLJOBLWRAMSES CULLEN MD,PHD Blood Venous blood specimen / Unknown 01/16/2025 8:13 AM EDT 01/16/2025 11:29 AM EDT Pedro Julian MD LAB BLOOD ORDERABLES Final Result [facility] [address] [place] [phone] * (ABNORMAL) LH (01/16/2025 8:13 AM EDT) Lutenizing Hormone 37.7(A) 1.6 - 15.2 mIU/mL [facility] Comment:THIS TEST WAS PERFOR MED AT:[employer] [address] [phone] SEGURA MD Blood Venous blood specimen / Unknown 01/16/2025 8:13 AM EDT 01/16/2025 11:29 AM EDT Pedro Julian MD LAB BLOOD ORDERABLES Final Result Performing Organization Address [facility] de Phone Number [facility] [address] [place] [phone] [phone] * (ABNORMAL) FSH (01/16/2025 8:13 AM EDT) Follicle Stimulating Hormone 49.9(A) 1.4 - 12.8 mIU/mL [facility] Comment:THIS TEST WAS PERFOR MED AT:[employer] [place] [phone] SEGURA MD Blood Venous blood specimen / Unknown 01/16/2025 8:13 AM EDT 01/16/2025 11:29 AM EDT Pedro Julian MD LAB BLOOD ORDERABLES Final Result Performing Organization Address [facility] de Phone Number [facility] [address] [place] [address] [phone] * BI Mammogram Diagnostic Tomosynthesis Bilateral (04/11/2024 3:15 PM EDT) Anatomical Region Laterality Modality Breast Bilateral Mammography 04/11/2024 3:15 PM EDT Narrative 04/11/2024 4:59 PM EDT ? [facility] [place] ? [address] ?[place] [address] ? Mammography Report ? Signed ? Patient: Pablo Quinteros,Jamie ?MR#: ?? [id number] ? : 1945 ?Acct:[id number] ? Age/Sex: 79 / M ?ADM Date: //24 ? Loc: HO.MAMMO ? Attending Dr: Pedro Webber MD ? Ordering Physician: Pedro Webber MD ?Resu ?? lts: 2Benign Findings ? Date of Service: 04/11/24 ?Follow Up: 1 Year From Orig ?? inal Mammogram ? Procedure(s): MM tomosynthesis diagnostic BI ?? Accession Number(s): [id number] ? cc: Pedro Webber MD ? EXAMINATION: [...] 1654 ? DD/ 1515 ? TD/TT: ? Systems Spec: ? Procedure Note Yazan Peters - 04/11/2024 [facility] [address] [place] [address] Dr. [place]ke[place], [place] [address] Mammography Report Signed Patient: Jaime CarpioPatrick#: [id number] : 1945Acct:[id number] Age/Sex: 79 / MADM Date: 04/11/24 Loc: HO.MAMMO Attending Dr: Pedro Webber MD Ordering Physician: Pedro Webber MDResu lts: 2Benign Findings Date of Service: 04/11/24Follow Up: 1 Year From [facility] Mammogram Procedure(s): MM tomosynthesis diagnostic BI Accession Number(s): [id number] cc: Pedro Webber MD EXAMINATION: MM DIAGNOSTIC [...] in OV> 04/11/24 1654 DD/ 1515 TD/TT: Systems Spec: Pedro Julian MD IMG BI PROCEDURES Fin al Result * HEPATITIS C AB W/REFL TO HCV RNA, QN, PCR (12/24/2021 8:24 AM EST) HEPATITIS C ANTIBODY NON-REACT SIL NON-REACT SIL [place] [facility] INDEX 0.01 <1.00 [facility] Comment: ?? HCV antibody was non-reactive. There is no laboratory ?? evidence of HCV infection. ?? In most cases, no further action is required. However, if recent HCV exposure is suspected, a test for HCV RNA (test code 36323) is suggested. ?? For additional information please refer to http://education.[employer].Proofpoint/faq/PEK38p1 (This link is being provided for informational/ educational purposes only.) ?? 12/24/2021 8:24 AM EST Pedro Julian MD HISTORICAL/NON ORDERA BLE LABS Final Result [facility] [address] from Last 3 Months or Most Recently Relevant to Health Maintenance Insurance [employer] OPTIONS (O D-SNP) [place] [id number] Care Teams Can Maker Relationship Specialty Start Date End Date Pedro Pulliam MD [address] [place] [id number] PCP - General Internal Medicine 09/10/14 Niko Salamanca MD [address] [place] [address] Nephrology 01/16/25
--- NOTE | 2025-04-03 13:05 | A.OFFVIS_ITS ---
Intake Visit Reasons: Edpididymoorchitis/UA Intake Note: Patient is Present for edpididymoorchitis/UA Urology Medication: None Antibiotic Allergies: None Blood Thinners: Warfarin, Aspirin PVR:36ml Paid Search Marketing Strategist Required: Yes Paid Search Marketing Strategist Language: Bulgarian Accompanied by: Self / Same As Patient Allergies No Known Allergies [No Known Allergies*] Allergy (Verified 04/03/25 13:09) HPI Comments Details: Jamie is a very pleasant Bulgarian speaking male. He is a patient of . He is seen for the following urologic conditions - microscopic hematuria - bladder outlet obstruction - high PSA with high free PSA Bulgarian translation provided in office by qualified certified medical asst Sent for question of epididymal orchitis Ultrasound finding without clinical symptoms testicles themselves small Restart terazosin for voiding issues PVR 40 cc High ferritin with elevated liver enzymes Elevated LH and FSH with normal testosterone Elevated gonadotropic hormones likely secondary to smaller testicles and liver enzyme issues Lower urinary tract symptoms Weakness of stream with urinary urge Terazosin 5 mg follow-up Has been effective with improved urination Discussed procedure versus continue medications Review in 6 months Microscopic hematuria - in setting of CKD 4 Persistent 2+ hematuria with evaluation by Nephrology Remains on anticoagulation Prior history of urinary tract infections Had previously been on tamsulosin which he no longer takes Reports effective bladder storage and voiding parameters PSA 04/29 4.4, 04/30 4.5 46% Free Yearly review PFSH Medical History Atrial fibrillation Tubular adenoma Dyslipidemia HTN (hypertension) Surgical History Hx of bilateral cataract extraction Hx of colonoscopy History of esophagogastroduodenoscopy (EGD) Family History Father Throat cancer Brother Prostate cancer Asthma Sister Hypertension Diabetes Mother Hypertension Social History Household Members: None Housing: Apartment Are you a primary health and social care teacher to a significant other at home: No Do you presently have visiting nurse or other home services: Yes (every 6 months) Alcohol intake: former Patient Tobacco Use Status: Former Tobacco user Tobacco use type: Cigarette service: No Current occupational status: retired Review of Systems Const Denies chills and Denies fever(s) Card Reports no additional complaints and Denies syncope Resp Denies cough GI Denies abdominal pain and Denies heartburn Reports as per HPI and Denies change in libido Neuro Denies syncope Psych Denies change in libido Endo Denies change in libido Physical Exam Const General: cooperative, healthy appearing, comfortable and no acute distress Orientation/consciousness: patient oriented x3 HEENT Face and sinus: Yes normal facial exam Mouth: moist mucous membranes Neck Neck: Yes normal visual inspection, Yes full ROM and Yes trachea midline Chest Chest palpation & inspection: normal inspection of the chest Resp Effort & Inspection: normal respiratory effort, able to speak in complete sentences and no respiratory distress GI Inspection: Yes normal to inspection Back/Spine/Pelvis Cervical Spine: normal cervical lordosis Thoracic/Lumbar Spine: thoracic and lumbar spine normal to inspection Skin General skin exam: no rashes or lesions noted Neuro General: patient oriented x3, gait normal, tone normal and moves all extremities Extrem General: Yes normal to inspection and Yes capillary refill normal Assessment & Plan Assessment & Plan (1) BPH w urinary obs/LUTS: Code(s): N40.1 - Benign prostatic hyperplasia with lower urinary tract symptoms; N13.8 - Other obstructive and reflux uropathy Category: Medical (2) Elevated PSA: Code(s): R97.20 - Elevated prostate specific antigen [PSA] Category: Medical Plan Twelve month follow-up Patient Instructions: This note is constructed using voice recognition software. While every effort has been made to ensure accuracy risk and compliance analytics director errors may have been included. Imaging studies, laboratory and physical exam results were discussed and reviewed in detail. No major barriers to patient understanding were identified. An opportunity to ask questions regarding the treatment plan was provided. All questions were answered. The patient expressed understanding and agreement with the above treatment plan. The patient is aware they should contact our office by phone for worsening of their current condition or the appearance of new urologic symptoms. Compliance is encouraged with any medications and followup testing that is ordered. It is a privilege to participate in the urologic care of your patient. If you have any questions or concerns regarding treatment for the above conditions, or other urologic issues, please do not hesitate to contact me. The office telephone contact is [phone]. Sincerely, Dr Scout Melo MD, [facility] - Urology Compassionate Specialist Care for the Genitourinary System Coding Level of Care Code Est Pt Level 4 (29501) Diagnoses BPH w urinary obs/LUTS N40.1; N13.8 Elevated PSA R97.20
== END 2025-04-03 13:34 | disposition home or self-care (01) ==
LOC: HO.HUSH 12:51
PROVIDERS: PCP Internal Medicine; Visit Provider Urology
DX: Z13.9 Encounter for screening, unspecified (principal)
CPT/HCPCS: 99214

== ENCOUNTER → 2025-04-03 12:50 | Outpatient (BNVA) | payer OTHER, SELFPAY | PROVIDERS: PCP Internal Medicine; Visit Provider Urology | DX: N40.1 Benign prostatic hyperplasia with lower urinary tract symptoms (principal); N13.8 Other obstructive and reflux uropathy; R97.20 Elevated prostate specific antigen [PSA] | CPT/HCPCS: 51798; 81003; 99212 ==

== ENCOUNTER 2025-04-04 13:00 | Outpatient (AMB) | payer OTHER, SELFPAY ==
[2025-04-04 13:17] LABS: Prothrombin Time Whole Bld POC 52.9 sec (11.1-13.5); ~PT, ~INR - Anti Coag Clinic 4.4 (0.9-1.1)
--- NOTE | 2025-04-04 13:20 | MHC.OFFVISCO ---
Intake Intake Visit Reasons: Anticoagulation Allergies No Known Allergies [No Known Allergies*] Allergy (Verified 04/04/25 13:10) Medication List - Last Reconciled 04/04/25 by Neena Boyce RN amlodipine 5 mg PO DAILY aspirin 81 mg PO DAILY atorvastatin 80 mg PO BEDTIME cholecalciferol (vitamin D3) 25 mcg PO DAILY dorzolamide-timolol 22.3-6.8 mg/mL 22.3 drps ophthalmic (eye) BID ferrous sulfate (FeroSul) 1 tab PO DAILY furosemide 40 mg PO DAILY iron sucrose (Venofer) 200 mg IV Q3D octreotide acetate (Mycapssa) 20 mg PO DAILY terazosin 5 mg PO BEDTIME 90 days travoprost 0.004% 1 drp ophthalmic (eye) BEDTIME warfarin 5 mg See Protocol PO DAILY Nursing Note NO CP,SOB,DIET CHANGES,FALLS OR SX OF BLEEDING. PT.STARTS TERAZOSIN TODAY(NO INR INTERCTION) HOLD WARFARIN TODAY THEN RESUME USUAL DOSING AND FOLLOW-UP IN 1 WEEK GOOD UNDERSTANDING OF DOSING INSTR. Anti-Coag Initial Assessment Social Hx Patient Tobacco Use Status: Former Tobacco user Tobacco use type: Cigarette alcohol intake: former Alcohol intake frequency: does not drink Coding Level of Care Code Est Patient Level 1 Diagnoses Current use of anticoagulant therapy Z79.01 Results AMB INR Fingerstick AMB INR Fingerstick 4.4 Last Edit by Neena Boyce RN on 04/04/25 13:18 Assessment & Plan Assessment & Plan (1) Current use of anticoagulant therapy: Comment: warfarin-Otto Margarette- need to confirm ok to stop 5 days prior to colonoscopy-unable to send note through expanse Patient aware this must be confirmed, there were no major barriers to understanding identified Code(s): Z79.01 - group home (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
--- OUTSIDE RECORDS SUMMARY | 2025-04-04 13:44 | XMS_ITS | Clinical Summary ---
Author Organization [employer] Address [address] [place] [address] Care Team Providers Care Toll Line Repairer Name Role Phone Pedro Pulliam MD Primary Care Provide r Niko Salamanca MD Unavailable [phone] Allergies No known active allergies Medications [...] pt currently undergoing PT with good results. [facility] care 09/23/2023 Assessment & Plan (10/17/2024 [...] showed diverticulosis only by Dr connors at [facility] Mixed hyperlipidemia 08/13/2015 09/15/2023 Assessment & Plan [...] the past by his vascular surgeon [place] [facility] [place] Lind[place] whose recommendation was conservative treatment, he saw NO role for any type of surgical intervention. He recommended to repeat the scan in 1 year and continue to take Asa 81 mg po daily. Pt was last seen by his director of capital giving at [facility] 09/14/2023 recommended repeat US and [...] and lasix 20 mg daily prescribed by Mail Room. I had recently lowered his Lasix due [...] and lasix 20 mg daily prescribed by Mail Room. I had recently lowered his Lasix due [...] Am and 20 mg PM prescribed by Mail Room. I had recently lowered his Lasix due [...] Am and 20 mg PM prescribed by Mail Room. Pt developed some bilateral ankle edema due [...] Furosemide 20 mg po BID prescribed by Mail Room. Pt developed some bilateral ankle edema due [...] Furosemide 20 mg po BID prescribed by Mail Room. Pt developed some bilateral ankle edema due [...] clinical impression. Plan: Breast center referral at [facility] Assessment & Plan (02/01/2024 1:36 PM EDT): [...] Encounters Date Type Department Care Team Description 04/04/2025 Orders Only GENERIC EXTERNAL DATA DEPARTMENT Provider, Generic External Data 03/28/2025 10:20 AM EDT Office Visit [facility] [address] [place] [phone] Imani Lee MD Impacted cerumen of left ear (Primary Dx) 03/28/2025 Telephone [facility] [address] [place] [phone] Pedro Pulliam MD Medication Request 03/13/2025 Orders Only GENERIC EXTERNAL DATA DEPARTMENT Provider, Generic External Data 03/01/2025 Orders Only GENERIC EXTERNAL DATA DEPARTMENT Provider, Generic External Data 02/27/2025 Telephone [facility] [address] [place] [phone] Pedro Pulliam MD Critical lab 02/27/2025 Orders Only GENERIC EXTERNAL DATA DEPARTMENT Provider, Generic External Data 02/21/2025 Telephone [place] [address] Justa Christianson, RN Results; Lab Orders; Referral 02/20/2025 Orders Only [facility] [address] Pedro Pulliam MD Epididymoorchitis (Primary Dx) 02/12/2025 Telephone [facility] [address] [place] [address] Pedro Pulliam MD Paperwork/Forms 02/11/2025 Refill [facility] [address] [place], [place] [address] Pedro Pulliam MD Vitamin D deficiency 02/07/2025 Orders Only GENERIC EXTERNAL DATA DEPARTMENT Provider, Generic External Data 01/16/2025 Telephone [facility] [address] [place], [place] [address] Justa Christianson, RN Interoffice Communication 01/15/2025 Telephone [facility] [address] [place], [place] [address] Pedro Pulliam MD Referral 01/11/2025 1:15 PM EST Office Visit [facility] [place] [address] Pedro Pulliam MD Primary hypertension (Primary Dx); [...] IIV3, injectable 10/25/2014, 1 Influenza, Split (incl. ivnayak fied surface antigen) 10/02/2013,08/04/2012 Pneumococcal Conjugate PCV [...] Description 04/17/2025 1:15 PM EDT Office Visit [facility] [address] [place] [address] Pedro Pulliam MD [address] [place] [address] Health Maintenance Due Date Last Done Comments [...] Screening 03/28/2026 03/28/2025 Lipid Panel 01/16/2030 01/16/2025, 12/0 03/2023, 12/24/2021, [...] Comments PROTHROMBIN TIME WHOLE BLD POC Routine 04/04/2025 1:14 PM EDT ~PT, ~INR - ANTI COAG CLINIC Routine 04/04/2025 1:14 PM EDT URINALYSIS WITH REFLEX TO MICROSCOPIC Routine 03/13/2025 [...] * (ABNORMAL) PROTHROMBIN TIME WHOLE BLD POC (04/04/2025 1:14 PM EDT) Only the most recent of6 resultswithin the time period is included. Protime 52.9(H) 11.1 - 13.5 sec [facility] 04/04/2025 1:14 PM EDT 04/04/2025 1:17 PM EDT us Generic External Data Provider LAB BLOOD ORDERAB LES Final Result [facility] [address] [place] [phone] * (ABNORMAL) ~PT, ~INR - ANTI COAG CLINIC (04/04/2025 1:14 PM EDT) Only the most recent of6 resultswithin the time period is included. Prothrombin Time INR 4.4(H) 0.9 - 1.1 [facility] Comment:METER #: [id number] TERNATIONAL NORMALIZED RATIO (INR) REFERENCE RANGES Reference RangeFor patients not on anticoagulant therapy: 0.9 - 1.1INR ranges for oral anticoagulanttherapy:For prevention and treatment of venous thrombosis and pulmonary embolism: 2.0 - 3.0For acute myocardial infarction with aspirin therapy: 2.0 - 3.0For acute myocardial infarction without aspirin therapy: 3.0 - 4.0For patients with mechanical prosthetic heart valves: 2.5 - 3.5 04/04/2025 1:14 PM EDT 04/04/2025 1:17 PM EDT us Generic External Data Provider LAB BLOOD ORDERAB LES Final Result Performing Organization Address [facility] de Phone Number [facility] [address] [place] [phone] * Urinalysis with Reflex to Microscopic (03/13/2025 2:16 PM EDT) Color Urine Yellow [facility] Appearance Urine Clear [facility] PH 5.0 5.0 - 9.0 [facility] Glucose Urine UA Negative Negative mg/dL [facility] Urine Blood Negative Negative [facility] Specific [place] - Urine 1.010 1.005 - 1.025 [facility] Urine Protein Negative Neg-Trace mg/dL [facility] Urine Ketones Negative Negative mg/dL [facility] Nitrite Urine Negative Negative [facility] Leukocyte Esterase Urine Negative Negative [facility] 03/13/2025 2:16 PM EDT 03/13/2025 3:07 PM EDT us Generic External Data Provider LAB URINE ORDERAB LES Final Result Performing Organization Address [facility] de Phone Number [facility] [address] [place] [phone] * Culture, Urine, Routine (03/13/2025 2:16 PM EDT) Urine Urine specimen obtained by clean catch procedure / Unknown 03/13/2025 2:16 PM EDT 03/13/2025 3:07 PM EDT Comment:UACC Narrative [facility] - 03/14/2025 12:57 PM EDT Urine Culture Report Result Urine Culture < 10,000 cfu/ml Specimen Source: Urine clean catch Generic External Data Provider LAB MICROBIOLOGY - GENERAL ORDERABLES Final Result Performing Organization Address [facility]/ZIP Co de Phone Number [facility] [address] [place] [phone] * (ABNORMAL) Prothrombin Time-INR (02/27/2025 1:31 PM EDT) Prothrombin Time 86.4(H) 10.9 - 12.4 SEC [facility] INTERNATIONAL NORM RATIO 7.4(HH) 0.9 - 1.1 [facility] Comment:RESULTS OF INR BURGOS D [...] ORDERAB LES Final Result Performing Organization Address [facility]/ZIP Co de Phone Number [facility] [address] [place] [phone] * (ABNORMAL) Urinalysis, Complete, with Reflex to Culture (02/22/2025 9:20 AM EDT) Color Urine Dark Yellow [facility] Appearance Urine Turbid [facility] PH 5.0 5.0 - 9.0 [facility] Glucose Urine UA Negative Negative mg/dL [facility] Urine Blood Negative Negative [facility] Specific [place] - Urine 1.025 1.005 - 1.025 [facility] Urine Protein 30 (1+)(A) Neg-Trace mg/dL [facility] Urine Ketones 15 Negative mg/dL [facility] Nitrite Urine Negative Negative [facility] Leukocyte Esterase Urine Trace(A) Negative [facility] RBC Urine 0-2 0 - 2 /HPF [facility] Urine WBC 0-5 0 - 5 /HPF [facility] Urine Squamous Epithelial Cell 3-5 0 - 2 /HPF [facility] CALCIUM OXALATE CRYSTAL, UR Present [facility] Urine Bacteria None Seen None Seen [facility] Hyaline Casts, Urine 3-5 0 - 2 /LPF [facility] GRANULAR CASTS (#/HPF) IN URINE Present [facility] Waxy Casts Present [facility] Urine 02/22/2025 9:20 AM EDT 02/22/2025 11:25 AM EDT Narrative [facility] - 02/22/2025 12:09 PM EDT Urine, Clean Catch us Pedro Julian MD LAB URINE ORDERABLES Final Result [facility] [address] [place] [phone] * US Scrotum (02/19/2025 3:57 PM EDT) Anatomical Region Laterality Modality Body Ultrasound 02/19/2025 3:57 PM EDT Narrative 02/19/2025 4:56 PM EDT ? [facility] [facility] ?[address] ?[place] [address] ? Ultrasound Report ? Signed ? Patient: Pablo Quinteros,Jamie ?MR#: ?? [id number] ? : 1945 ?Acct:[id number] ? Age/Sex: 79 / M ?ADM Date: 02/19/25 ? Loc: HO. ? Attending Dr: Niko Salamanca MD ? Ordering Physician: Pedro Webber MD ?? Date of Service: 02/19/25 ?? Procedure(s): US scrotum ?? Accession Number(s): [id number] ? cc: Pedro Webber MD ? EXAMINATION: [...] DD/ 1557 ? TD/TT: 02/19/25 1613 ? Insurance Processing Clerk: ? Procedure Note Donotuseinterpreter, Image - 02/19/2025 [place] [address] Ultrasound Report Signed Patient: Rik Carpio#: [id number] : 1945Acct:[id number] Age/Sex: 79 / MADM Date: 02/19/25 Loc: HO.US Attending Dr: Niko Salamanca MD Ordering Physician: Pedro Webber MD Date of Service: 02/19/25 Procedure(s): US scrotum Accession Number(s): [id number] cc: Pedro Webber MD EXAMINATION: US SCROTUM [...] 02/19/25 1653 DD/ 1557 TD/TT: 02/19/25 1613 Insurance Processing Clerk: us Pedro Julian MD IMG US PROCEDURES Ortiz david Result - Final * US RENAL BI (02/19/2025 3:38 PM EDT) Anatomical Region Laterality Modality Abdomen Ultrasound 02/19/2025 3:38 PM EDT Narrative 02/19/2025 4:52 PM EDT ? [facility] ?[address] ?[place] [address] ? Ultrasound Report ? Signed ? Patient: Pablo Quinteros,Jamie ?MR#: ?? [id number] ? : 1945 ?Acct:[id number] ? Age/Sex: 79 / M ?ADM Date: 02/19/25 ? Loc: HO.US ? Attending Dr: Niko Salamanca MD ? Ordering Physician: Niko Salamanca MD ?? Date of Service: 02/19/25 ?? Procedure(s): US renal BI ?? Accession Number(s): [id number] ? cc: Niko Salamanca MD; Pedro Webber [...] DD/ 1538 ? TD/TT: 02/19/25 1548 ? Insurance Processing Clerk: MSM ? Procedure Note Donkatelynn, Image - 02/19/2025 [place] [address] Ultrasound Report Signed Patient: Rik Carpio#: [id number] : 6Acct:[id number] Age/Sex: 79 / MADM Date: 02/19/25 Loc: HO. Attending Dr: Niko Salamanca MD Ordering Physician: Niko Salamanca MD Date of Service: 02/19/25 Procedure(s): US renal BI Accession Number(s): [id number] cc: Niko Salamanca MD; Pedro Webber MD [...] 02/19/25 1650 DD/ 1538 TD/TT: 02/19/25 1548 Insurance Processing Clerk: [facility] External Provider IMG US PROCEDURES Edited Result - Final * TSH with Reflex to Free T4 (01/16/2025 9:13 AM EDT) TSH reflex Free T4 1.80 0.32 - 4.0 uIU/mL [facility] Blood Venous blood specimen / Unknown 01/16/2025 9:13 AM EDT 01/16/2025 11:29 AM EDT Pedro Julian MD LAB BLOOD ORDERABLES Final Result [facility] [address] [place] [phone] * hCG, Total, Quantitative (01/16/2025 9:13 AM EDT) HCG Quantitative <2 mIU/mL [facility] Blood Venous blood specimen / Unknown 01/16/2025 9:13 AM EDT 01/16/2025 11:29 AM EDT Pedro Julian MD LAB BLOOD ORDERABLES Final Result Performing Organization Address City/[facility]/ZIP Co de Phone Number [facility] [address] [place] [phone] * (ABNORMAL) Lipid Panel, Standard (01/16/2025 9:13 AM EDT) Triglycerides 40 <150 mg/dL [facility] Comment:Desirable Triglyceri de: less than 150 mg/dLBorderline High Triglyceride 150-199 mg/dLHigh Triglyceride: 200-499 mg/dLVery High Triglyceride: greater than or equal to 5OO mg/dL Cholesterol 93 <200 mg/dL [facility] Comment:Desirable Cholestero l: less than 200 mg/dLBorderline High Cholesterol: 200-239 mg/dLHigh Cholesterol: greater than 239 mg/dL LDL Cholesterol Calculated 58 <100 mg/dL [facility] Comment:Desirable LDL: less than 100 mg/dLNear Optimal/Above Optimal LDL: 110- 129 mg/dLBorderline High LDL: 130-159 mg/dLHigh LDL: 160-189 mg/dLVery High LDL: greater than or equal to 190 mg/dL HDL Cholesterol 27(L) >40 mg/dL [facility] Comment:Desirable HDL: great er than 40 mg/dL Note: This HDL assay may give artificially low results in patients with liver disease. Blood Venous blood specimen / Unknown 01/16/2025 9:13 AM EDT 01/16/2025 11:29 AM EDT Pedro Julian MD LAB BLOOD ORDERABLES Final Result Performing Organization Address City/[facility]/ZIP Co de Phone Number [facility] [address] [place] [phone] * (ABNORMAL) Basic Metabolic Panel (01/16/2025 9:13 AM EDT) Sodium 141 135 - 145 mmol/L [facility] Potassium 4.5 3.3 - 5.1 mmol/L [facility] Chloride 111(H) 96 - 108 mmol/L [facility] Carbon Dioxide 25 22 - 29 mmol/L [facility] Anion Gap 10(L) 12 - 20 [facility] Urea Nitrogen (BUN) 28(H) 9 - 16 mg/dL [facility] Creatinine, Serum 1.90(H) 0.5 - 1.4 mg/dL [facility] Estimated Glomerular Filt Rate 34 [facility] Comment:Chronic Kidney Disea se: Estimated GFR < 60 mL/min/1.99a3Kgwtip Kidney Disease: Estimated GFR < 15 mL/min/1.73m2 Glucose 93 60 - 115 mg/dL [facility] Calcium 8.7 8.4 - 10.2 mg/dL [facility] Blood Venous blood specimen / Unknown 01/16/2025 9:13 AM EDT 01/16/2025 11:29 AM EDT Pedro Julian MD LAB BLOOD ORDERABLES Final Result [facility] [address] [place] [phone] * Prolactin (01/16/2025 8:13 AM EDT) Prolactin 9.2 2.0 - 18.0 ng/mL [facility] Comment:THIS TEST WAS PERFOR MED AT:[employer] [place] [phone] SEGURA MD Blood Venous blood specimen / Unknown 01/16/2025 8:13 AM EDT 01/16/2025 11:29 AM EDT Pedro Julian MD LAB BLOOD ORDERABLES Final Result Performing Organization Address [facility] Co de Phone Number [facility] [address] [place] [phone] * DHEA Sulfate (01/16/2025 8:13 AM EDT) DHEA Sulfate 44 3 - 225 mcg/dL [facility] Comment:THIS TEST WAS PERFOR MED AT:[employer] [address] [id number] SEGURA MD Blood Venous blood specimen / Unknown 01/16/2025 8:13 AM EDT 01/16/2025 11:29 AM EDT Pedro Julian MD LAB BLOOD ORDERABLES Final Result Performing Organization Address [facility] Co de Phone Number [facility] [address] [place] [phone] * (ABNORMAL) Estradiol (01/16/2025 8:13 AM EDT) Estradiol Ultra Sensitive 37(A) < OR = 29 pg/mL [facility] Comment:This test was develo ped and its analytical performancecharacteristics have been determined by [employer].It has not been cleared or approved by the FDA. This assayhas been validated pursuant to the CLIA regulations and isused for clinical purposes.THIS TEST WAS PERFORMED AT:[employer] [id number] [place] [address]JFSHZPHILLIP RODRIGUEZ MD,PHD,VIPUL Blood Venous blood specimen / Unknown 01/16/2025 8:13 AM EDT 01/16/2025 11:29 AM EDT Pedro Julian MD LAB BLOOD ORDERABLES Final Result Performing Organization Address [facility] Co de Phone Number [facility] [address] [place] [phone] * Testosterone, Free (Dialysis) And Total, MS (01/16/2025 8:13 AM EDT) Pathologist [facility] Testosterone, Total 498 250 - 1100 ng/dL [facility] Comment:Men with clinically significant hypogonadalsymptoms and testosterone values repeatedly inthe range of the 200-300 ng/dL or less, maybenefit from testosterone treatment afteradequate risk and benefits counseling.For additional information, please refer tohttp://education.[employer]atic/faq/IrtydKbtwisuhorkiIPPZVGURO892(This link is being provided for informational/educational purposes only.)This test was developed and its analytical performancecharacteristics have been determined by [employer] [place], [place]. It hasnot been cleared or approved by the U.S. Food and DrugAdministration. This assay has been validated pursuantto the CLIA regulations and is used for clinicalpurposes. Testosterone, Free 60.8 30.0 - 135.0 pg/mL [facility] Comment:This test was develo ped and its analytical performancecharacteristics have been determined by [facility]. It hasnot been cleared or approved by the U.S. Food and DrugAdministration. This assay has been validated pursuantto the CLIA regulations and is used for clinicalpurposes.THIS TEST WAS PERFORMED AT:[employer] [id number] [place] [address]BZAMVTORAMSES CULLEN MD,PHD Blood Venous blood specimen / Unknown 01/16/2025 8:13 AM EDT 01/16/2025 11:29 AM EDT us Pdero Julian MD LAB BLOOD ORDERABLES Final Result [facility] [address] [place] [phone] * (ABNORMAL) LH (01/16/2025 8:13 AM EDT) Lutenizing Hormone 37.7(A) 1.6 - 15.2 mIU/mL [facility] Comment:THIS TEST WAS PERFOR MED AT:[employer] [address] [id number] SEGURA MD Blood Venous blood specimen / Unknown 01/16/2025 8:13 AM EDT 01/16/2025 11:29 AM EDT Pedro Julian MD LAB BLOOD ORDERABLES Final Result Performing Organization Address [facility] Co de Phone Number [facility] [address] [place] [address] [phone] * (ABNORMAL) FSH (01/16/2025 8:13 AM EDT) Follicle Stimulating Hormone 49.9(A) 1.4 - 12.8 mIU/mL [facility] Comment:THIS TEST WAS PERFOR MED AT:[employer] [address] [address]OWTDPCATARINO SEGURA MD Blood Venous blood specimen / Unknown 01/16/2025 8:13 AM EDT 01/16/2025 11:29 AM EDT Pedro Julian MD LAB BLOOD ORDERABLES Final Result Performing Organization Address City/[facility] Co de Phone Number [facility] [address], [place] [phone] * BI Mammogram Diagnostic Tomosynthesis Bilateral (04/11/2024 3:15 PM EDT) Anatomical Region Laterality Modality Breast Bilateral Mammography 04/11/2024 3:15 PM EDT Narrative 04/11/2024 4:59 PM EDT ? [facility] ? [address] ?[place] [address] ? Mammography Report ? Signed ? Patient: Pablo Quinteros,Jamie ?MR#: ?? [id number] ? : 1945 ?Acct:[id number] ? Age/Sex: 79 / M ?ADM Date: 06/04/24 ? Loc: HO.MAMMO ? Attending Dr: Pedro Webber MD ? Ordering Physician: Pedro Webber MD ?Resu ?? lts: 2Benign Findings ? Date of Service: 04/11/24 ?Follow Up: 1 Year From Orig ?? inal Mammogram ? Procedure(s): MM tomosynthesis diagnostic BI ?? Accession Number(s): [id number] ? cc: Pedro Webber MD ? EXAMINATION: [...] OV> ?04/11/241653 ? DD/ ? TD/TT: ? Insurance Processing Clerk: ? Procedure Yazan [place] - 04/11/2024 [facility] [address] [place] [address] Dr. Mckeon, [place] [address] Mammography Report Signed Patient: Rik Carpio#: [id number] : 6Acct:[id number] Age/Sex: 79 / MADM Date: 04/11/24 Loc: HO.MAMMO Attending Dr: Pedro Webber MD Ordering Physician: Pedro Webber MDResu lts: 2Benign Findings Date of Service: 04/11/24Follow Up: 1 Year From Orig ina Mammogram Procedure(s): MM tomosynthesis diagnostic BI Accession Number(s): [id number] cc: Pedro Webber MD EXAMINATION: MM DIAGNOSTIC [...] in OV> 04/11/24 1654 DD/ 1515 TD/TT: Insurance Processing Clerk: Pedro Julian MD IMG BI PROCEDURES Fin al Result * HEPATITIS C AB W/REFL TO HCV RNA, QN, PCR (12/24/2021 8:24 AM EST) HEPATITIS C ANTIBODY NON-REACT SIL NON-REACT SIL [facility] INDEX 0.01 <1.00 [facility] Comment: ?? HCV antibody was non-reactive. There is no laboratory ?? evidence of HCV infection. ?? In most cases, no further action is required. However, if recent HCV exposure is suspected, a test for HCV RNA (test code 86777) is suggested. ?? For additional information please refer to http://education.MedPlasts.ULTRA Testing/faq/LOC42g7 (This link is being provided for informational/ educational purposes only.) ?? 12/24/2021 8:24 AM EST Pedro Julian MD HISTORICAL/NON ORDERA BLE LABS Final Result [facility] [address] from Last 3 Months or Most Recently Relevant to Health Maintenance Insurance [address] [place] Webber [facility] [employer] OPTIONS (O D-SNP) [place] [phone] * Guarantor: Pablo Quinteros, Jamie Account Type Relation to Patient Date of Phone Billing Address Personal/Family Self [address] [place] Wbeber Care Teams Toll Line Repairer Relationship Specialty Start Date End Date Pedro Pulliam MD [address] [place] [phone] PCP - General Internal Medicine 09/10/14 Niko Salamanca MD [address] [place] [address] Drive [address] [place] [address] Nephrology 01/16/25
== END 2025-04-04 13:23 | disposition home or self-care (01) ==
LOC: HO.ACS 13:00
PROVIDERS: PCP Internal Medicine; Visit Provider Internal Medicine Medical Oncology
DX: Z79.01 Long term (current) use of anticoagulants (principal)

== ENCOUNTER → 2025-04-04 13:00 | Outpatient (BNVA) | payer OTHER, SELFPAY | PROVIDERS: PCP Internal Medicine; Visit Provider Internal Medicine Medical Oncology | DX: I48.0 Paroxysmal atrial fibrillation (principal); Z79.01 Long term (current) use of anticoagulants; Z51.81 Encounter for therapeutic drug level monitoring | CPT/HCPCS: 85610; 99211 ==

== ENCOUNTER 2025-04-11 13:01 | Outpatient (AMB) | payer OTHER, SELFPAY ==
[2025-04-11 13:11] LABS: Prothrombin Time Whole Bld POC 32.3 sec (11.1-13.5); ~PT, ~INR - Anti Coag Clinic 2.7 (0.9-1.1)
--- NOTE | 2025-04-11 13:14 | MHC.OFFVISCO ---
Intake Intake Visit Reasons: Anticoagulation Allergies No Known Allergies [No Known Allergies*] Allergy (Verified 04/11/25 13:05) Nursing Note NO CP,SOB,DIET/MED CHANGES,FALLS OR SX OF BLEEDING. CONTINUE PRESENT DOSE AND FOLLOW-UP IN 3 WEEKS. GOOD UNDERSTANDING OF DOSING INSTR. Anti-Coag Initial Assessment Social Hx Patient Tobacco Use Status: Former Tobacco user Tobacco use type: Cigarette alcohol intake: former Alcohol intake frequency: does not drink Coding Level of Care Code Est Patient Level 1 Diagnoses Current use of anticoagulant therapy Z79.01 Assessment & Plan Assessment & Plan (1) Current use of anticoagulant therapy: Comment: warfarin-Otto Pfeiffer- need to confirm ok to stop 5 days prior to colonoscopy-unable to send note through expanse Patient aware this must be confirmed, there were no major barriers to understanding identified Code(s): Z79.01 - residential (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
--- OUTSIDE RECORDS SUMMARY | 2025-04-11 13:22 | XMS_ITS | Clinical Summary ---
Author Organization [employer] Address [address] [facility] [address] [place] [address] Care Team Providers Care President & [employer] Name Role Phone Pedro Pulliam MD Primary Care Provide r Niko Salamanca MD Unavailable [phone] Allergies No known active allergies Medications [...] DAILY 90 tablet 1 10/17/20 24 Active cholecalciferol (Vitamin D-3) 25 MCG tabletIndications :Vitamin D deficiency TAKE 1 TABLET BY MOUTH ONCE DAILY 90 tablet 02/13/20 25 Active carbamide peroxide (Debrox) 6.5 % otic solutionIndicatio ns:Impacted cerumen of left ear Administer 5 drops into the left ear 2 times daily. 15 mL 03/28/20 25 Active Ferrous Sulfate (iron) 325 (65 Fe) MG tabletIndications :Iron deficiency TAKE 1 TABLET BY MOUTH ONCE DAILY 90 tablet 1 04/10/20 25 Active atorvastatin (Lipitor) 80 MG tabletIndications :Mixed hyperlipidemia TAKE 1 TABLET BY MOUTH AT BEDTIME 90 tablet 1 04/10/20 25 Active amLODIPine (Norvasc) 5 MG tabletIndications :Primary hypertension TAKE 1 TABLET BY MOUTH ONCE DAILY 90 tablet 1 04/10/20 25 Active ferrous sulfate (FeroSul) 325 (65 Fe) MG tabletIndications :Iron deficiency Take 1 tablet (325 mg) by mouth Once per day. 90 tablet 01/12/20 25 2024 Discontinued atorvastatin (Lipitor) 80 MG tabletIndications :Mixed hyperlipidemia Take 1 tablet (80 mg) by mouth at bedtime. 90 tablet 01/12/20 25 2024 Discontinued amLODIPine (Norvasc) 5 MG tabletIndications :Primary hypertension Take 1 tablet (5 mg) by mouth Once per day. 90 tablet 01/12/20 25 2024 Discontinued Active Problems Problem Noted Date Diagnosed [...] pt currently undergoing PT with good results. [facility] care 09/23/2023 Assessment & Plan (10/17/2024 1:55 [...] showed diverticulosis only by Dr connors at [facility] Mixed hyperlipidemia 08/13/2015 [...] the past by his vascular surgeon at [facility] (Dr Lind) whose recommendation was conservative treatment, he saw NO role for any type of surgical intervention. He recommended to repeat the scan in 1 year and continue to take Asa 81 mg po daily. Pt was last seen by his oral and maxillofacial surgeon at [facility] 09/14/2023 recommended repeat US and ECHO and [...] and lasix 20 mg daily prescribed by [employer]. I had recently lowered his Lasix due [...] and lasix 20 mg daily prescribed by [employer]. I had recently lowered his Lasix due [...] Am and 20 mg PM prescribed by [employer]. I had recently lowered his Lasix due [...] Am and 20 mg PM prescribed by [employer]. Pt developed some bilateral ankle edema due [...] Furosemide 20 mg po BID prescribed by [employer]. Pt developed some bilateral ankle edema due [...] Furosemide 20 mg po BID prescribed by [employer]. Pt developed some bilateral ankle edema due [...] clinical impression. Plan: Breast center referral at [facility] Assessment & Plan (02/01/2024 1:36 PM EDT): [...] Encounters Date Type Department Care Team Description 04/11/2025 Orders Only GENERIC EXTERNAL DATA DEPARTMENT Provider, Generic External Data 04/09/[address] [facility] [address] [place] [phone] Pedro Pulliam MD Iron deficiency; Mixed hyperlipidemia; Primary hypertension 04/04/2025 Orders Only GENERIC EXTERNAL DATA DEPARTMENT Provider, Generic External Data 03/28/2025 10:20 AM EDT Office Visit [facility] [address] [place] [phone] Imani Lee MD Impacted cerumen of left ear (Primary Dx) 03/28/[address] [address] Pedro Pulliam MD Medication Request 03/13/2025 Orders Only GENERIC EXTERNAL DATA DEPARTMENT Provider, Generic External Data 03/01/2025 Orders Only GENERIC EXTERNAL DATA DEPARTMENT Provider, Generic External Data 02/27/[address] [facility] [address] [place] [phone] Pedro Pulliam MD Critical lab 02/27/2025 Orders Only GENERIC EXTERNAL DATA DEPARTMENT Provider, Generic External Data 02/21/[address] [address] Justa Christianson, RN Results; Lab Orders; Referral 02/20/2025 Orders Only [address] [address] Pedro Pulliam MD Epididymoorchitis (Primary Dx) 02/12/[address] [address] Pedro Pulliam MD Paperwork/Forms 02/11/[address] [address] Pedro Pulliam MD Vitamin D deficiency 02/07/2025 Orders Only GENERIC EXTERNAL DATA DEPARTMENT Provider, Generic External Data 01/16/[address] [address] Justa Christianson, RN Interoffice Communication 01/15/[address] [address] Pedro Pulliam MD Referral 01/11/2025 1:15 PM EST Office Visit [address] [address] Pedro Pulliam MD Primary hypertension (Primary Dx); [...] Pressure 136/58 03/28/2025 10:22 AM EDT gregory nuvidya Pulse 80 03/28/2025 10:03 AM EDT Temperature [...] Office Visit [facility] [address] [place], [place] [phone] Pedro Pulliam MD [address] [place] [address] Health Maintenance Due Date Last Done Comments Zoster Vaccines (3 of 3) 03/04/2020 01/08/2020, 02/07 RSV Patients and Patients Aged 60 years or older (1 - 1-dose 75+ series) 2021 COVID-19 Vaccine (4 - 2023- season) 2024 11/11/2021, 03/05/2021, 02/05/2021 Mammogram 04/11/2025 04/11/2024, 04/11/2024 Alcohol/Substance Use Screening 10/17/2025 10/17/2024 Depression Screening 10/17/2025 10/17/2024, 10/17/20 SDOH Screening 01/02/2026 01/02/2025 Tobacco Screening 03/28/2026 03/28/2025 Lipid Panel 01/16/2030 01/16/2025, 1203/2023, 12/24/2021, Additional [...] Comments PROTHROMBIN TIME WHOLE BLD POC Routine 04/11/2025 1:08 PM EDT ~PT, ~INR - ANTI COAG CLINIC Routine 04/11/2025 1:08 PM EDT PROTHROMBIN TIME WHOLE BLD POC Routine 04/04/2025 [...] * (ABNORMAL) PROTHROMBIN TIME WHOLE BLD POC (04/11/2025 1:08 PM EDT) Only the most recent of7 resultswithin the time period is included. Protime 32.3(H) 11.1 - 13.5 sec [facility] 04/11/2025 1:08 PM EDT 04/11/2025 1:10 PM EDT Generic External Data Provider LAB BLOOD ORDERAB LES Final Result Performing Organization Address [facility] Co de Phone Number [facility] [address] [place] [phone] * (ABNORMAL) ~PT, ~INR - ANTI COAG CLINIC (04/11/2025 1:08 PM EDT) Only the most recent of7 resultswithin the time period is included. Prothrombin Time INR 2.7(H) 0.9 - 1.1 [facility] Comment:METER #: [id number] TERNATIONAL NORMALIZED RATIO (INR) REFERENCE RANGES Reference RangeFor patients not on anticoagulant therapy: 0.9 - 1.1INR ranges for oral anticoagulanttherapy:For prevention and treatment of venous thrombosis and pulmonary embolism: 2.0 - 3.0For acute myocardial infarction with aspirin therapy: 2.0 - 3.0For acute myocardial infarction without aspirin therapy: 3.0 - 4.0For patients with mechanical prosthetic heart valves: 2.5 - 3.5 04/11/2025 1:08 PM EDT 04/11/2025 1:10 PM EDT Generic External Data Provider LAB BLOOD ORDERAB LES Final Result Performing Organization Address [facility] Co de Phone Number [facility] [address] [place] [address] [phone] * Urinalysis with Reflex to Microscopic (03/13/2025 2:16 PM EDT) Color Urine Yellow [facility] Appearance Urine Clear [facility] PH 5.0 5.0 - 9.0 [facility] Glucose Urine UA Negative Negative mg/dL [facility] Urine Blood Negative Negative [facility] Specific [place] - Urine 1.010 1.005 - 1.025 [facility] Urine Protein Negative Neg-Trace mg/dL [facility] Urine Ketones Negative Negative mg/dL [facility] Nitrite Urine Negative Negative [facility] Leukocyte Esterase Urine Negative Negative [facility] 03/13/2025 2:16 PM EDT 03/13/2025 3:07 PM EDT Generic External Data Provider LAB URINE ORDERAB LES Final Result Performing Organization Address City/[facility] [address] [facility]/ZIP Co de Phone Number [facility] [address] [place] [phone] * Culture, Urine, Routine (03/13/2025 2:16 PM EDT) Urine Urine specimen obtained by clean catch procedure / Unknown 03/13/2025 2:16 PM EDT 03/13/2025 3:07 PM EDT Comment:UACC Narrative [facility] - 03/14/2025 12:57 PM EDT Urine Culture Report Result Urine Culture < 10,000 cfu/ml Specimen Source: Urine clean catch Generic External Data Provider LAB MICROBIOLOGY - GENERAL ORDERABLES Final Result Performing Organization Address [facility]/ZIP Co de Phone Number [facility] [address] [place] [phone] * (ABNORMAL) Prothrombin Time-INR (02/27/2025 1:31 PM EDT) Prothrombin Time 86.4(H) 10.9 - 12.4 SEC [facility] INTERNATIONAL NORM RATIO 7.4(HH) 0.9 - 1.1 [facility] Comment:RESULTS OF INR BURGOS D [...] Provider LAB BLOOD ORDERAB LES Final Result [facility] [address] [place] [phone] * (ABNORMAL) Urinalysis, Complete, with Reflex to Culture (02/22/2025 9:20 AM EDT) Color Urine Dark Yellow [facility] Appearance Urine Turbid [facility] PH 5.0 5.0 - 9.0 [facility] Glucose Urine UA Negative Negative mg/dL [facility] Urine Blood Negative Negative [facility] Specific [place] - Urine 1.025 1.005 - 1.025 [facility] Urine Protein 30 (1+)(A) Neg-Trace mg/dL [facility] Urine Ketones 15 Negative mg/dL [facility] Nitrite Urine Negative Negative [facility] Leukocyte Esterase Urine Trace(A) Negative [facility] RBC Urine 0-2 0 - 2 /HPF [facility] Urine WBC 0-5 0 - 5 /HPF [facility] Urine Squamous Epithelial Cell 3-5 0 - 2 /HPF [facility] CALCIUM OXALATE CRYSTAL, UR Present [facility] Urine Bacteria None Seen None Seen [facility] Hyaline Casts, Urine 3-5 0 - 2 /LPF [facility] GRANULAR CASTS (#/HPF) IN URINE Present [facility] Waxy Casts Present [facility] Urine 02/22/2025 9:20 AM EDT 02/22/2025 11:25 AM EDT Narrative [facility] - 02/22/2025 12:09 PM EDT Urine, Clean Catch us Pedro Julian MD LAB URINE ORDERABLES Final Result [facility] [address] [place] [phone] * US Scrotum (02/19/2025 3:57 PM EDT) Anatomical Region Laterality Modality Body Ultrasound 02/19/2025 3:57 PM EDT Narrative 02/19/2025 4:56 PM EDT ? [facility] ?[address] ?[place] [address] ? Ultrasound Report ? Signed ? Patient: Jamie Carpio ?MR#: ?? [id number] ? : 1945 ?Acct:[id number] ? Age/Sex: 79 / M ?ADM Date: 02/19/25 ? Loc: HO.US ? Attending Dr: Niko Salamanca MD ? Ordering Physician: Pedro Webber MD ?? Date of Service: 02/19/25 ?? Procedure(s): US scrotum ?? Accession Number(s): [id number] ? cc: Pedro Webber MD ? EXAMINATION: [...] DD/ 1557 ? TD/TT: 02/19/25 1613 ? Claims Account Specialist: ? Procedure Note Fran, Image - 02/19/2025 [place] [address] Ultrasound Report Signed Patient: Rik Carpio#: [id number] : 6Acct:[id number] Age/Sex: 79 / MADM Date: 02/19/25 Loc: HO.US Attending Dr: Niko Salamanca MD Ordering Physician: Pedro Webber MD Date of Service: 02/19/25 Procedure(s): US scrotum Accession Number(s): [id number] cc: Pedro Webber MD EXAMINATION: US SCROTUM [...] 02/19/25 1653 DD/ 1557 TD/TT: 02/19/25 1613 Claims Account Specialist: us Pedro Julian MD IMG US PROCEDURES Ortiz david Result - Final * US RENAL BI (02/19/2025 3:38 PM EDT) Anatomical Region Laterality Modality Abdomen Ultrasound 02/19/2025 3:38 PM EDT Narrative 02/19/2025 4:52 PM EDT ? [facility] ?[address] ?[place] [address] ? Ultrasound Report ? Signed ? Patient: Pablo Quinteros,Jamie ?MR#: ?? [id number] ? : 1945 ?Acct:[id number] ? Age/Sex: 79 / M ?ADM Date: 04/14/25 ? Loc: HO.US ? Attending Dr: Niko Salamanca MD ? Ordering Physician: Niko Salamanca MD ?? Date of Service: 02/19/25 ?? Procedure(s): US renal BI ?? Accession Number(s): [id number] ? cc: Niko Salamanca MD; Pedro Webber [...] or hydronephrosis.. ? Electronically signed by: ??Mark Denise MD ??02/19/2025 04:50 PM EDT RP ? Dictated By: ?Denise,Mark S MD ? Signed By: ?<Electronically signed by Mark S Denise, MD in OV> ?02/19/25 1650 ? DD/ 1538 ? TD/TT: 02/19/25 1548 ? Claims Account Specialist: MSM ? Procedure Note Donotuseinterpreter, Image - 02/19/[address] [address] Ultrasound Report Signed Patient: Rik Carpio#: [id number] : 6Acct:[id number] Age/Sex: 79 / MADM Date: 02/19/25 Loc: HO.US Attending Dr: Niko Salamanca MD Ordering Physician: Niko Salamanca MD Date of Service: 02/19/25 Procedure(s): US renal BI Accession Number(s): [id number] cc: Niko Salamanca MD; Pedro Webber MD [...] 02/19/25 1650 DD/ 1538 TD/TT: 02/19/25 1548 Claims Account Specialist: [facility] External Provider IMG US PROCEDURES Edited Result - Final * TSH with Reflex to Free T4 (01/16/2025 9:13 AM EDT) TSH reflex Free T4 1.80 0.32 - 4.0 uIU/mL [facility] Blood Venous blood specimen / Unknown 01/16/2025 9:13 AM EDT 01/16/2025 11:29 AM EDT Pedro Julian MD LAB BLOOD ORDERABLES Final Result Performing Organization Address City/[facility]/ZIP Co de Phone Number [facility] [address] [place] [phone] * hCG, Total, Quantitative (01/16/2025 9:13 AM EDT) HCG Quantitative <2 mIU/mL [facility] Blood Venous blood specimen / Unknown 01/16/2025 9:13 AM EDT 01/16/2025 11:29 AM EDT Pedro Julian MD LAB BLOOD ORDERABLES Final Result Performing Organization Address City/[facility]/ZIP Co de Phone Number [facility] [address] [place] [phone] * (ABNORMAL) Lipid Panel, Standard (01/16/2025 9:13 AM EDT) Triglycerides 40 <150 mg/dL [facility] Comment:Desirable Triglyceri de: less than 150 mg/dLBorderline High Triglyceride 150-199 mg/dLHigh Triglyceride: 200-499 mg/dLVery High Triglyceride: greater than or equal to 5OO mg/dL Cholesterol 93 <200 mg/dL [facility] Comment:Desirable Cholestero l: less than 200 mg/dLBorderline High Cholesterol: 200-239 mg/dLHigh Cholesterol: greater than 239 mg/dL LDL Cholesterol Calculated 58 <100 mg/dL [facility] Comment:Desirable LDL: less than 100 mg/dLNear Optimal/Above Optimal LDL: 110- 129 mg/dLBorderline High LDL: 130-159 mg/dLHigh LDL: 160-189 mg/dLVery High LDL: greater than or equal to 190 mg/dL HDL Cholesterol 27(L) >40 mg/dL [facility] Comment:Desirable HDL: great er than 40 mg/dL Note: This HDL assay may give artificially low results in patients with liver disease. Blood Venous blood specimen / Unknown 01/16/2025 9:13 AM EDT 01/16/2025 11:29 AM EDT us Pedro Julian MD LAB BLOOD ORDERABLES Final Result [facility] [address] [place] [phone] * (ABNORMAL) Basic Metabolic Panel (01/16/2025 9:13 AM EDT) Sodium 141 135 - 145 mmol/L [facility] Potassium 4.5 3.3 - 5.1 mmol/L [facility] Chloride 111(H) 96 - 108 mmol/L [facility] Carbon Dioxide 25 22 - 29 mmol/L [facility] Anion Gap 10(L) 12 - 20 [facility] Urea Nitrogen (BUN) 28(H) 9 - 16 mg/dL [facility] Creatinine, Serum 1.90(H) 0.5 - 1.4 mg/dL [facility] Estimated Glomerular Filt Rate 34 [facility] Comment:Chronic Kidney Disea se: Estimated GFR < 60 mL/min/1.85l1Cyfvfd Kidney Disease: Estimated GFR < 15 mL/min/1.73m2 Glucose 93 60 - 115 mg/dL [facility] Calcium 8.7 8.4 - 10.2 mg/dL [facility] Blood Venous blood specimen / Unknown 01/16/2025 9:13 AM EDT 01/16/2025 11:29 AM EDT Pedro Julian MD LAB BLOOD ORDERABLES Final Result Performing Organization Address [facility]/ZIP Co de Phone Number [facility] [address] [place] [phone] * Prolactin (01/16/2025 8:13 AM EDT) Prolactin 9.2 2.0 - 18.0 ng/mL [facility] Comment:THIS TEST WAS PERFOR MED AT:[email or web address] [address] [address]ZDFVBCATARINO SEGURA MD Blood Venous blood specimen / Unknown 01/16/2025 8:13 AM EDT 01/16/2025 11:29 AM EDT Pedro Julian MD LAB BLOOD ORDERABLES Final Result Performing Organization Address [facility] de Phone Number [facility] [address] [place] [phone] * DHEA Sulfate (01/16/2025 8:13 AM EDT) DHEA Sulfate 44 3 - 225 mcg/dL [facility] Comment:THIS TEST WAS PERFOR MED AT:[email or web address] [address] [address]IHJIKCATARINO SEGURA MD Blood Venous blood specimen / Unknown 01/16/2025 8:13 AM EDT 01/16/2025 11:29 AM EDT Pedro Julian MD LAB BLOOD ORDERABLES Final Result Performing Organization Address [facility] Co de Phone Number [facility] [address] [place] [phone] * (ABNORMAL) Estradiol (01/16/2025 8:13 AM EDT) Estradiol Ultra Sensitive 37(A) < OR = 29 pg/mL [facility] Comment:This test was develo ped and its analytical performancecharacteristics have been determined by [employer].It has not been cleared or approved by the FDA. This assayhas been validated pursuant to the CLIA regulations and isused for clinical purposes.THIS TEST WAS PERFORMED AT:[email or web address] [id number] [place] [address]OFHCBPHILLIP RODRIGUEZ MD,PHD,VIPUL Blood Venous blood specimen / Unknown 01/16/2025 8:13 AM EDT 01/16/2025 11:29 AM EDT Pedro Julian MD LAB BLOOD ORDERABLES Final Result [facility] [address] [place] [phone] * Testosterone, Free (Dialysis) And Total, MS (01/16/2025 8:13 AM EDT) Testosterone, Total 498 250 - 1100 ng/dL [facility] Comment:Men with clinically significant hypogonadalsymptoms and testosterone values repeatedly inthe range of the 200-300 ng/dL or less, maybenefit from testosterone treatment afteradequate risk and benefits counseling.For additional information, please refer tohttp://education.[employer].ii4b/faq/XrwsfFfkahivzgjhqDNODOGAOE488(This link is being provided for informational/educational purposes only.)This test was developed and its analytical performancecharacteristics have been determined by [employer] [place], [place]. It hasnot been cleared or approved by the U.S. Food and DrugAdministration. This assay has been validated pursuantto the CLIA regulations and is used for clinicalpurposes. Testosterone, Free 60.8 30.0 - 135.0 pg/mL [facility] Comment:This test was develo ped and its analytical performancecharacteristics have been determined by [employer] [place], [place]. It hasnot been cleared or approved by the U.S. Food and DrugAdministration. This assay has been validated pursuantto the CLIA regulations and is used for clinicalpurposes.THIS TEST WAS PERFORMED AT:[email or web address]/[facility] [place] [address]UBVIYSBRAMSES CULLEN MD,PHD Blood Venous blood specimen / Unknown 01/16/2025 8:13 AM EDT 01/16/2025 11:29 AM EDT Pedro Julian MD LAB BLOOD ORDERABLES Final Result Performing Organization Address [facility] Co de Phone Number [facility] [address] [place] [phone] * (ABNORMAL) LH (01/16/2025 8:13 AM EDT) Lutenizing Hormone 37.7(A) 1.6 - 15.2 mIU/mL [facility] Comment:THIS TEST WAS PERFOR MED AT:[email or web address] [address] [address]UPAEAMADAI SEGURA MD Blood Venous blood specimen / Unknown 01/16/2025 8:13 AM EDT 01/16/2025 11:29 AM EDT Pedro Julian MD LAB BLOOD ORDERABLES Final Result Performing Organization Address [facility] Co de Phone Number [facility] [address] [place] [phone] * (ABNORMAL) FSH (01/16/2025 8:13 AM EDT) Follicle Stimulating Hormone 49.9(A) 1.4 - 12.8 mIU/mL [facility] Comment:THIS TEST WAS PERFOR MED AT:[email or web address] [id number] [place] [address]YNNFDMADAI SEGURA MD Blood Venous blood specimen / Unknown 01/16/2025 8:13 AM EDT 01/16/2025 11:29 AM EDT us Pedro Julian MD LAB BLOOD ORDERABLES Final Result [facility] [address] [facility] [phone] * BI Mammogram Diagnostic Tomosynthesis Bilateral (04/11/2024 3:15 PM EDT) Anatomical Region Laterality Modality Breast Bilateral Mammography 04/11/2024 3:15 PM EDT Narrative 04/11/2024 4:59 PM EDT ? [facility] ? [address] ?[place] [address] ? Mammography Report ? Signed ? Patient: Pablo Quinteros,Jamie ?MR#: ?? [id number] ? : 1945 ?Acct:[id number] ? Age/Sex: 79 / M ?ADM Date: 04/11/24 ? Loc: HO.MAMMO ? Attending Dr: Pedro Webber MD ? Ordering Physician: Pedro Webber MD ?Resu ?? lts: 2Benign Findings ? Date of Service: 04/11/24 ?Follow Up: 1 Year From Orig ?? inal Mammogram ? Procedure(s): MM tomosynthesis diagnostic BI ?? Accession Number(s): [id number] ? cc: Pedro Webber MD ? EXAMINATION: [...] ?04/11/244 ? DD/ 1515 ? TD/TT: ? Claims Account Specialist: ? Procedure Note Yazan Peters - 04/11/2024 [facility] [address] [place] [address] Mammography Report Signed Patient: Rik Carpio#: [id number] : 6Acct:[id number] Age/Sex: 79 / MADM Date: 04/11/24 Loc: HO.MAMMO Attending Dr: Pedro Webber MD Ordering Physician: Pedro Webber MDResu lts: 2Benign Findings Date of Service: 04/11/24Follow Up: 1 Year From Orig inal Mammogram Procedure(s): MM tomosynthesis diagnostic BI Accession Number(s): [id number] cc: Pedro Webber MD EXAMINATION: MM DIAGNOSTIC [...] in OV> 04/11/24 1654 DD/ 1515 TD/TT: Claims Account Specialist: us Pedro Julian MD IMG BI PROCEDURES Fin al Result * HEPATITIS C AB W/REFL TO HCV RNA, QN, PCR (12/24/2021 8:24 AM EST) HEPATITIS C ANTIBODY NON-REACT SIL NON-REACT [facility] INDEX 0.01 <1.00 [facility] Comment: ?? HCV antibody was non-reactive. There is no laboratory ?? evidence of HCV infection. ?? In most cases, no further action is required. However, if recent HCV exposure is suspected, a test for HCV RNA (test code 96387) is suggested. ?? For additional information please refer to http://[employer]end/faq/MGQ56g0 (This link is being provided for informational/ educational purposes only.) ?? 12/24/2021 8:24 AM EST us Pedro Julian MD HISTORICAL/NON ORDERA BLE LABS Final Result [facility] [address] from Last 3 Months or Most Recently Relevant to Health Maintenance Insurance [facility] - [employer] (O D-SNP) ANTOINE WANG [id number] Care Teams President [employer] Relationship Specialty Start Date End Date Pedro Pulliam MD [address] [place] [id number] PCP - General Internal Medicine 09/10/14 Niko Salamanca MD [address] [place] [address] Drive [address] [place] [address] Nephrology 01/16/25
== END 2025-04-11 13:42 | disposition home or self-care (01) ==
LOC: HO.ACS 13:01
PROVIDERS: PCP Internal Medicine; Visit Provider Internal Medicine Medical Oncology
DX: Z79.01 Long term (current) use of anticoagulants (principal)

== ENCOUNTER → 2025-04-11 13:01 | Outpatient (BNVA) | payer OTHER, SELFPAY | PROVIDERS: PCP Internal Medicine; Visit Provider Internal Medicine Medical Oncology | DX: I48.0 Paroxysmal atrial fibrillation (principal); Z79.01 Long term (current) use of anticoagulants; Z51.81 Encounter for therapeutic drug level monitoring | CPT/HCPCS: 85610; 99211 ==

== ENCOUNTER 2025-04-17 13:58 | Outpatient (REF) | payer OTHER, SELFPAY ==
--- NOTE | ~2025-04-17 | XR_ITS ---
EXAMINATION: XR LUMBOSACRAL SPINE CLINICAL INFORMATION: low back pain COMPARISON: MRI April 29, 2022 TECHNIQUE: Three views of the lumbosacral spine. FINDINGS: There are 5 nonrib-bearing lumbar segments. There is 12 degrees dextro scoliosis in the upper thoracic spine . T11-12: There are anterior aspect and mild disc space narrowing. L1-2: There is mild disc space narrowing and small anterior osteophytes. L2-3: There is subtle retrolisthesis, mild space narrowing with anterior osteophytes. L3-4: There is mild disc space narrowing and facet sclerosis with osteophytes. There is mild right lateral listhesis. L4-5: There is mild disc space narrowing and facet sclerosis with osteophytes. Lucency with sclerotic margins projects over the pars region. L5-S1: Unremarkable. XR/XR lumbar spine 2-3V IMPRESSION: Mild dextroscoliosis. Multilevel degenerative disc disease and facet arthropathy. 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 Electronically signed by: Zay Molina MD 04/17/2025 02:54 PM EDT
== END 2025-04-17 13:59 | disposition home or self-care (01) ==
LOC: HO.HHCX 13:58
PROVIDERS: Visit Provider Internal Medicine
DX: M54.32 Sciatica, left side (principal)
CPT/HCPCS: 72100

== ENCOUNTER → 2025-04-17 13:59 | Outpatient (BNV) | payer OTHER, SELFPAY | PROVIDERS: Visit Provider Radiology Diagnostic Radiology | DX: M51.360 Other intervertebral disc degeneration, lumbar region with discogenic back pain only (principal); M47.816 Spondylosis without myelopathy or radiculopathy, lumbar region | CPT/HCPCS: 72100 ==

== ENCOUNTER 2025-05-02 13:14 | Outpatient (AMB) | payer OTHER, SELFPAY ==
--- NOTE | 2025-05-02 13:33 | MHC.OFFVISCO ---
Intake Intake Visit Reasons: Anticoagulation Allergies No Known Allergies (No Known Allergies*) Allergy (Verified 05/02/25 13:26) Medication List - Last Reconciled 05/02/25 by Neena Boyce RN amlodipine 5 mg PO DAILY aspirin 81 mg PO DAILY atorvastatin 80 mg PO BEDTIME cholecalciferol (vitamin D3) 25 mcg PO DAILY dorzolamide-timolol 22.3-6.8 mg/mL 22.3 drps ophthalmic (eye) BID ferrous sulfate (FeroSul) 1 tab PO DAILY furosemide 40 mg PO DAILY iron sucrose (Venofer) 200 mg IV Q3D octreotide acetate (Mycapssa) 20 mg PO DAILY Held on 11/20/22. Instructions: rejected by insurance terazosin 5 mg PO BEDTIME 90 days travoprost 0.004% 1 drp ophthalmic (eye) BEDTIME warfarin 5 mg See Protocol PO DAILY Nursing Note NO CP,SOB,DIET/MED CHANGES,FALLS OR SX OF BLEEDING. CONTINUE PRESENT DOSSE AND FOLLOW-UP IN 4 WEEKS. GOOD UNDERSTANDING OF DOSING INSTR. Anti-Coag Initial Assessment Social Hx Patient Tobacco Use Status: Former Tobacco user Tobacco use type: Cigarette alcohol intake: former Alcohol intake frequency: does not drink Coding Level of Care Code Est Patient Level 1 Diagnoses Current use of anticoagulant therapy Z79.01 Results AMB INR Fingerstick AMB INR Fingerstick 2.4 Last Edit by Neena Boyce RN on 05/02/25 13:31 Assessment & Plan Assessment & Plan (1) Current use of anticoagulant therapy: Comment: warfarin-Otto Margarette- need to confirm ok to stop 5 days prior to colonoscopy-unable to send note through expanse Patient aware this must be confirmed, there were no major barriers to understanding identified Code(s): 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
[2025-05-02 14:26] LABS: Prothrombin Time Whole Bld POC 28.8 sec (11.1-13.5); ~PT, ~INR - Anti Coag Clinic 2.4 (0.9-1.1)
--- OUTSIDE RECORDS SUMMARY | 2025-05-02 15:33 | XMS_ITS | Clinical Summary ---
Author Organization [employer] Address [address] [facility] [address] [place] [address] Care Team Providers Care Senior Mainframe Developer Name Role Phone Pedro Pulliam MD Primary Care Provide r Niko Salamanca MD Unavailable [phone] Allergies No known active allergies Medications Aspirin Low Dose 81 MG EC tabletIndications :Primary hypertension TAKE 1 TABLET BY MOUTH EVERY DAY 30 tablet 6 024 Active warfarin (Coumadin) 5 MG tabletIndications :Atrial fibrillation, unspecified type (CMS/HCC) TAKE 1 TABLET BY MOUTH EVERY DAY DIRECTED BY COUMADIN CLINIC 90 tablet 024 Active warfarin (Coumadin) 5 MG tabletIndications :Atrial fibrillation, unspecified type (CMS/HCC) TAKE 1 TABLET BY MOUTH EVERY DAY DIRECTED BY COUMADIN CLINIC 90 tablet 2 024 Active furosemide (Lasix) 20 MG tabletIndications :Stage 3 chronic kidney disease, unspecified whether stage 3a or 3b CKD (CMS/HCC),Primary hypertension,Nonr heumatic tricuspid valve regurgitation 1 tab daily 60 tablet 024 Active cholecalciferol (Vitamin D-3) 25 MCG tabletIndications :Vitamin D deficiency TAKE 1 TABLET BY MOUTH ONCE DAILY 90 tablet 025 Active carbamide peroxide (Debrox) 6.5 % otic solutionIndicatio ns:Impacted cerumen of left ear Administer 5 drops into the left ear 2 times daily. 15 mL 025 Active Ferrous Sulfate (iron) 325 (65 Fe) MG tabletIndications :Iron deficiency TAKE 1 TABLET BY MOUTH ONCE DAILY 90 tablet 1 025 Active atorvastatin (Lipitor) 80 MG tabletIndications :Mixed hyperlipidemia TAKE 1 TABLET BY MOUTH AT BEDTIME 90 tablet 1 025 Active amLODIPine (Norvasc) 5 MG tabletIndications :Primary hypertension TAKE 1 TABLET BY MOUTH ONCE DAILY 90 tablet 1 025 Active lisinopril 40 MG tabletIndications :Primary hypertension TAKE 1 TABLET BY MOUTH ONCE DAILY 90 tablet 1 024 2024 Discontinued ferrous sulfate (FeroSul) 325 (65 Fe) MG tabletIndications :Iron deficiency Take 1 tablet (325 mg) by mouth Once per day. 90 tablet 025 2024 Discontinued atorvastatin (Lipitor) 80 MG tabletIndications :Mixed hyperlipidemia Take 1 tablet (80 mg) by mouth at bedtime. 90 tablet 025 2024 Discontinued amLODIPine (Norvasc) 5 MG tabletIndications :Primary hypertension Take 1 tablet (5 mg) by mouth Once per day. 90 tablet 025 2024 Discontinued lisinopril 40 MG tabletIndications :Primary hypertension TAKE 1 TABLET BY MOUTH ONCE DAILY 90 tablet 1 025 2024 Discontinued(D iscontinued by another clinician) Active Problems Problem Noted Date Diagnosed Date Sciatica of left side 04/17/2025 Assessment & Plan (04/17/2025 1:43 PM EDT): Pt with c/o intermittent left sided low back pain with radiation to left buttock and left leg, declines PT, cannot take NSAIDS He says is not to bad will continue with tylenol alone Will obtain plain plain film KARINA (obstructive sleep apnea) 01/11/2025 Assessment & [...] 4.9 under the caer of urology Dr emlo Colonoscopy: Normal : Repeat 03/28 due to [...] kidney disease 04/18/2019 09/15/2023 Assessment & Plan (04/17/2025 1:20 PM EDT): Used to be under the care of Nephrology, last seen 03/13/2025 Last BMP Lab Results Component Value Date NA 141 01/16/2025 NA 142 07/31/2024 K 4.5 01/16/2025 K 3.9 07/31/2024 CL 111 (H) 01/16/2025 CL 111 (H) 07/31/2024 BUN 28 (H) 01/16/2025 BUN 22 (H) 07/31/2024 CREATININE 1.90 (H) 01/16/2025 CREATININE 1.61 (H) 07/31/2024 Plan: Continue to follow with Nephrology Assessment & Plan (01/11/2025 1:24 PM EST): [...] Atrial fibrillation 02/08/2018 09/15/2023 Assessment & Plan (04/17/2025 1:22 PM EDT): Pt here for a follow up Has A.fib Chadsvasc 3 He is on Coumadin, under the care of the Coumadin Clinic. Previous nuclear stress test was negative Pt has ongoing f/u at the coumadin clinic and cardiology last note from Cardiology 03/20/2025. ECHO 08/17/2024 no significant change from previous EF 50-55% Assessment & Plan (01/11/2025 1:18 PM EST): [...] Repeat ECHO 08/20/2023 6 month follow up BPH (benign prostatic hyperplasia) 11/26/2015 09/15/2023 Assessment & Plan (04/17/2025 1:25 PM EDT): Under the care of Urology Dr Melo 04/03/2025 Hx of Benign prostatic hyperplasia Hx of elevated PSA He has a Hx of neg TRUS bx as well Last PSA 06/27/2024 4.9 Assessment & Plan (10/17/2024 1:54 PM EST): [...] showed diverticulosis only by Dr connors at [facility] Mixed hyperlipidemia 08/13/2015 09/15/2023 Assessment & Plan [...] the past by his vascular surgeon at [facility] (Dr Lind) whose recommendation was conservative treatment, he saw NO role for any type of surgical intervention. He recommended to repeat the scan in 1 year and continue to take Asa 81 mg po daily. Pt was last seen by his line fisher at [facility] 09/14/2023 recommended repeat US and ECHO and 6 month follow up He is on Aspirin started by their office Last Carotid US on record from 02/11/2023 Hypertension 04/21/2012 09/15/2023 Assessment & Plan (04/17/2025 1:40 PM EDT): Pt here for a f/u BP stable He is on a regimen of: Norvasc 5 mg daily, and lasix 20 mg daily prescribed by Malt Loader. Pt is off Lisinopril 40 mg po daily (stopped by Aws Developer 04/01) I had recently lowered his Lasix due to worsening renal function Pt developed some bilateral ankle edema due to Amlodipine Plan: Continue current regimen Most recent electrolytes, Bun and Creatinine Lab Results Component Value Date NA 141 01/16/2025 NA 142 07/31/2024 K 4.5 01/16/2025 K 3.9 07/31/2024 CL 111 (H) 01/16/2025 CL 111 (H) 07/31/2024 BUN 28 (H) 01/16/2025 BUN 22 (H) 07/31/2024 CREATININE 1.90 (H) 01/16/2025 CREATININE 1.61 (H) 07/31/2024 patient advised to adhere to a low sodium diet, encouraged about medication compliance, counseled about weight loss. 3 month f/u Assessment & Plan (01/11/2025 1:23 PM EST): Pt here for a f/u BP stable He is on a regimen of: Norvasc 5 mg daily, Lisinopril 40 mg po daily and lasix 20 mg daily prescribed by Malt Loader. I had recently lowered his Lasix due [...] and lasix 20 mg daily prescribed by Malt Loader. I had recently lowered his Lasix due [...] Am and 20 mg PM prescribed by Malt Loader. I had recently lowered his Lasix due [...] Am and 20 mg PM prescribed by Malt Loader. Pt developed some bilateral ankle edema due [...] Furosemide 20 mg po BID prescribed by Malt Loader. Pt developed some bilateral ankle edema due [...] Furosemide 20 mg po BID prescribed by Malt Loader. Pt developed some bilateral ankle edema due to Amlodipine Plan: Continue current regimen Most recent electrolytes, Bun and Creatinine done on: 12/24/2021 SCr 1.25 will repeat patient advised to adhere to a low sodium diet, encouraged about medication compliance, counseled about weight loss. 3 month f/u Gynecomastia 04/21/2012 09/15/2023 Assessment & Plan (04/17/2025 1:32 PM EDT): Mammogram showed: IMPRESSION: -There is [...] plastic surgeon who recommended endocrine work up So far Testosterone normal, elevated FHS, LH and Estradiol, Normal Prolactin and Testicular US showed No tumor Will refer to Endocrinology Assessment & Plan (01/11/2025 1:23 PM EST): [...] clinical impression. Plan: Breast center referral at [facility] Assessment & Plan (02/01/2024 1:36 PM EDT): [...] Encounters Date Type Department Care Team Description 05/02/2025 Orders Only GENERIC EXTERNAL DATA DEPARTMENT Provider, Generic External Data 04/17/2025 1:15 PM EDT Office Visit [facility] [address] [place] [phone] Pedro Pulliam MD Stage 3b chronic kidney disease (CMS/HCC) (Primary Dx); Longstanding persistent atrial fibrillation (CMS/HCC); Benign prostatic hyperplasia with urinary frequency; Gynecomastia; Primary hypertension; Sciatica of left side 04/17/2025 Travel 04/16/2025 Telephone [facility] [address] [place] [phone] Pedro Pulliam MD Chart Prep 04/15/2025 Refill [facility] [address] [place] [address] Pedro Pulliam MD Primary hypertension 04/11/2025 Orders Only GENERIC EXTERNAL DATA DEPARTMENT Provider, Generic External Data 04/09/2025 Refill [facility] [address] [place] [address] Pedro Pulliam MD Iron deficiency; Mixed hyperlipidemia; Primary hypertension 04/04/2025 Orders Only GENERIC EXTERNAL DATA DEPARTMENT Provider, Generic External Data 03/28/2025 10:20 AM EDT Office Visit [facility] [address] [place] [address] Imani Lee MD Impacted cerumen of left ear (Primary Dx) 03/28/2025 Telephone [facility] [address] [place] [phone] Pedro Pulliam MD Medication Request 03/13/2025 Orders Only GENERIC EXTERNAL DATA DEPARTMENT Provider, Generic External Data 03/01/2025 Orders Only GENERIC EXTERNAL DATA DEPARTMENT Provider, Generic External Data 02/27/2025 Telephone [facility] PEDIATR[facility] [address] [place] [address] Pedro Pulliam MD Critical lab 02/27/2025 Orders Only GENERIC EXTERNAL DATA DEPARTMENT Provider, Generic External Data 02/21/[address] [address] Justa Christianson RN Results; Lab Orders; Referral 02/20/2025 Orders Only [facility] [address] [place] [address] Pedro Pulliam MD Epididymoorchitis (Primary Dx) 02/12/2025 Telephone [facility] [address] [place] [address] Pedro Pulliam MD Paperwork/Forms 02/11/2025 Refill [facility] [address] [place] [address] Pedro Pulliam MD Vitamin D deficiency 02/07/2025 [...] Sign Reading Time Taken Comments Blood Pressure 142/58 04/17/2025 1:05 PM EDT Pulse 55 04/17/2025 1:05 PM EDT Temperature 36.2 C (97.2 F) 04/17/2025 1:05 PM EDT Respiratory Rate 20 04/17/2025 1:05 PM EDT Oxygen Saturation 99% 04/17/2025 1:05 PM EDT Inhaled Oxygen Concentration - - Weight 74.4 kg (164 lb) 04/17/2025 1:05 PM EDT Height 175.3 cm (5' 9 ) 04/17/2025 1:05 PM EDT Body Mass Index 24.22 04/17/2025 1:05 PM EDT Plan of Treatment Upcoming Encounters Date Type Department Care Team (Late st Contact Info) Description 07/17/2025 2:00 PM EDT Office Visit [facility] [address] [place] [address] Pedro Pulliam MD [address] [place] [address] Health Maintenance Due Date Last Done Comments [...] Comments PROTHROMBIN TIME WHOLE BLD POC Routine 05/02/2025 1:28 PM EDT ~PT, ~INR - ANTI COAG CLINIC Routine 05/02/2025 1:28 PM EDT XR LUMBAR SPINE 2-3 VIEWS Routine 04/17/2025 1:24 PM EDT Sciatica of left side PROTHROMBIN TIME WHOLE BLD POC Routine 04/11/2025 [...] Routine 01/16/2025 9:13 AM EDT Mixed hyperlipidemia BI MAMMOGRAM DIAGNOSTIC TOMOSYNTHESIS BILATERAL Routine 04/11/2024 3:15 PM EDT Gynecomastia ZZZ HISTORICAL HEPATITIS C AB W/REFL TO HCV RNA, QN, PCR Routine 12/24/2021 8:24 AM EST from Last 3 Months or Most Recently Relevant to Health Maintenance Results * (ABNORMAL) PROTHROMBIN TIME WHOLE BLD POC (05/02/2025 1:28 PM EDT) Only the most recent of7 resultswithin the time period is included. Protime 28.8(H) 11.1 - 13.5 sec [facility] 05/02/2025 1:28 PM EDT 05/02/2025 2:25 PM EDT us Generic External Data Provider LAB BLOOD ORDERAB LES Final Result [facility] [address] [place] [phone] * (ABNORMAL) ~PT, ~INR - ANTI COAG CLINIC (05/02/2025 1:28 PM EDT) Only the most recent of7 resultswithin the time period is included. Prothrombin Time INR 2.4(H) 0.9 - 1.1 [facility] Comment:METER #: [id number] TERNATIONAL NORMALIZED RATIO (INR) REFERENCE RANGES Reference RangeFor patients not on anticoagulant therapy: 0.9 - 1.1INR ranges for oral anticoagulanttherapy:For prevention and treatment of venous thrombosis and pulmonary embolism: 2.0 - 3.0For acute myocardial infarction with aspirin therapy: 2.0 - 3.0For acute myocardial infarction without aspirin therapy: 3.0 - 4.0For patients with mechanical prosthetic heart valves: 2.5 - 3.5 05/02/2025 1:28 PM EDT 05/02/2025 2:25 PM EDT us Generic External Data Provider LAB BLOOD ORDERAB LES Final Result [facility] [address] [place] [phone] * XR Lumbar Spine 2-3 Views (04/17/2025 1:24 PM EDT) Anatomical Region Laterality Modality Spine, L-spine Radiographic Micaela ging 04/17/2025 1:24 PM EDT Narrative 04/17/2025 2:57 PM EDT [address] [address] XRay Report Signed Patient: Jamie Carpio MR#: [id number] : 1945 Acct:[id number] Age/Sex: 80 / M ADM Date: 04/17/25 Loc: HO.HHCX Attending Dr: Pedro Webber MD Ordering Physician: Pedro Webber MD Date of Service: 04/17/25 Procedure(s): XR lumbar spine 2-3V Accession Number(s): [id number] cc: Pedro Webber MD EXAMINATION: XR LUMBOSACRAL SPINE CLINICAL INFORMATION: low back pain COMPARISON: MRI April 29, 2022 TECHNIQUE: Three views of the lumbosacral spine. FINDINGS: There are 5 nonrib-bearing lumbar segments. There is 12 degrees dextro scoliosis in the upper thoracic spine . T11-12: There are anterior aspect and mild disc space narrowing. L1-2: There is mild disc space narrowing and small anterior osteophytes. L2-3: There is subtle retrolisthesis, mild space narrowing with anterior osteophytes. L3-4: There is mild disc space narrowing and facet sclerosis with osteophytes. There is mild right lateral listhesis. L4-5: There is mild disc space narrowing and facet sclerosis with osteophytes. Lucency with sclerotic margins projects over the pars region. L5-S1: Unremarkable. XR/XR lumbar spine 2-3V IMPRESSION: Mild dextroscoliosis. Multilevel degenerative disc disease and facet arthropathy. 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 Electronically signed by: Zay Molina MD 04/17/2025 02:54 PM EDT RP Dictated By: Zay Molina MD Signed By: <Electronically signed by Zay Molina MD in OV> 04/17/25 1454 DD/ 1324 TD/TT: 04/17/25 1400 Sports Therapist: Procedure Note Donotuseinterpreter, Image - 04/17/[address] [address] XRay Report Signed Patient: Rik Carpio#: [id number] : 6Acct:[id number] Age/Sex: 80 / MADM Date: 04/17/25 Loc: HO.HHCX Attending Dr: Pedro Webber MD Ordering Physician: Pedro Webber MD Date of Service: 04/17/25 Procedure(s): XR lumbar spine 2-3V Accession Number(s): [id number] cc: Pedro Webber MD EXAMINATION: XR LUMBOSACRAL SPINE CLINICAL INFORMATION: low back pain COMPARISON: MRI April 29, 2022 TECHNIQUE: Three views of the lumbosacral spine. FINDINGS: There are 5 nonrib-bearing lumbar segments. There is 12 degrees dextro scoliosis in the upper thoracic spine . T11-12: There are anterior aspect and mild disc space narrowing. L1-2: There is mild disc space narrowing and small anterior osteophytes. L2-3: There is subtle retrolisthesis, mild space narrowing with anterior osteophytes. L3-4: There is mild disc space narrowing and facet sclerosis with osteophytes. There is mild right lateral listhesis. L4-5: There is mild disc space narrowing and facet sclerosis with osteophytes. Lucency with sclerotic margins projects over the pars region. L5-S1: Unremarkable. XR/XR lumbar spine 2-3V IMPRESSION: Mild dextroscoliosis. Multilevel degenerative disc disease and facet arthropathy. 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 Electronically signed by: Zay Molina MD 04/17/2025 02:54 PM EDT RP Dictated By: Zay Molina MD Signed By: <Electronically signed by Zay Molina MD in OV> 04/17/25 1454 DD/ 1324 TD/TT: 04/17/25 1400 Sports Therapist: us Pedro Julian MD IMG XR PROCEDURES Fin al Result * Urinalysis with Reflex to Microscopic (03/13/2025 2:16 PM EDT) Color Urine Yellow [facility] Appearance Urine Clear [facility] PH 5.0 5.0 - 9.0 [facility] Glucose Urine UA Negative Negative mg/dL [facility] Urine Blood Negative Negative [facility] Specific [place] - Urine 1.010 1.005 - 1.025 [facility] Urine Protein Negative Neg-Trace mg/dL [facility] Urine Ketones Negative Negative mg/dL [facility] Nitrite Urine Negative Negative [facility] Leukocyte Esterase Urine Negative Negative [facility] 03/13/2025 2:16 PM EDT 03/13/2025 3:07 PM EDT us Generic External Data Provider LAB URINE ORDERAB LES Final Result [facility] [address] [place] [phone] * Culture, Urine, Routine (03/13/2025 2:16 PM EDT) Urine Urine specimen obtained by clean catch procedure / Unknown 03/13/2025 2:16 PM EDT 03/13/2025 3:07 PM EDT Comment:UACC Narrative [facility] - 03/14/2025 12:57 PM EDT Urine Culture Report Result Urine Culture < 10,000 cfu/ml Specimen Source: Urine clean catch Generic External Data Provider LAB MICROBIOLOGY - GENERAL ORDERABLES Final Result Performing Organization Address [facility]/ZIP Co de Phone Number [facility] [address] [place] [phone] * (ABNORMAL) Prothrombin Time-INR (02/27/2025 1:31 PM EDT) Prothrombin Time 86.4(H) 10.9 - 12.4 SEC [facility] INTERNATIONAL NORM RATIO 7.4(HH) 0.9 - 1.1 [facility] Comment:RESULTS OF INR BURGOS [...] ORDERAB LES Final Result Performing Organization Address [facility]/ZIP Co de Phone Number [facility] [address] [place] [phone] * (ABNORMAL) Urinalysis, Complete, with Reflex to Culture (02/22/2025 9:20 AM EDT) Color Urine Dark Yellow [facility] Appearance Urine Turbid [facility] PH 5.0 5.0 - 9.0 [facility] Glucose Urine UA Negative Negative mg/dL [facility] Urine Blood Negative Negative [facility] Specific [place] - Urine 1.025 1.005 - 1.025 [facility] Urine Protein 30 (1+)(A) Neg-Trace mg/dL [facility] Urine Ketones 15 Negative mg/dL [facility] Nitrite Urine Negative Negative [facility] Leukocyte Esterase Urine Trace(A) Negative [facility] RBC Urine 0-2 0 - 2 /HPF [facility] Urine WBC 0-5 0 - 5 /HPF [facility] Urine Squamous Epithelial Cell 3-5 0 - 2 /HPF [facility] CALCIUM OXALATE CRYSTAL, UR Present [facility] Urine Bacteria None Seen None Seen [facility] Hyaline Casts, Urine 3-5 0 - 2 /LPF [facility] GRANULAR CASTS (#/HPF) IN URINE Present [facility] Waxy Casts Present [facility] Urine 02/22/2025 9:20 AM EDT 02/22/2025 11:25 AM EDT Narrative [facility] - 02/22/2025 12:09 PM EDT Urine, Clean Catch us Pedro Julian MD LAB URINE ORDERABLES Final Result [facility] [address] [place] [phone] * US Scrotum (02/19/2025 3:57 PM EDT) Anatomical Region Laterality Modality Body Ultrasound 02/19/2025 3:57 PM EDT Narrative 02/19/2025 4:56 PM EDT [address] [address] Ultrasound Report Signed Patient: Jamie Carpio MR#: [id number] : 1945 Acct:[id number] Age/Sex: 79 / M ADM Date: 02/19/25 Loc: HO.US Attending Dr: Niko Salamanca MD Ordering Physician: Pedro Webber MD Date of Service: 02/19/25 Procedure(s): US scrotum Accession Number(s): [id number] cc: Pedro Webber MD EXAMINATION: US SCROTUM [...] 02/19/25 1653 DD/ 1557 TD/TT: 02/19/25 1613 Sports Therapist: Procedure Note Donotuseinterpreter, Image - 02/19/[address] [address] Ultrasound Report Signed Patient: Rik Carpio#: [id number] : 6Acct:[id number] Age/Sex: 79 / MADM Date: 02/19/25 Loc: .US Attending Dr: Niko Salamanca MD Ordering Physician: Pedro Webber MD Date of Service: 02/19/25 Procedure(s): US scrotum Accession Number(s): [id number] cc: Pedro Webber MD EXAMINATION: US SCROTUM [...] Miguel A Bradley MD in OV> 02/19/25 2618 DD/ 1557 TD/TT: 02/19/25 1613 Sports Therapist: Pedro Julian MD IMG US PROCEDURES Ortiz david Result - Final * US RENAL BI (02/19/2025 3:38 PM EDT) Anatomical Region Laterality Modality Abdomen Ultrasound 02/19/2025 3:38 PM EDT Narrative 02/19/2025 4:52 PM EDT [place] [address] Ultrasound Report Signed Patient: Jamie Carpio MR#: [id number] : 1945 Acct:[id number] Age/Sex: 79 / M ADM Date: 02/19/25 Loc: HO.US Attending Dr: Niko Salamanca MD Ordering Physician: Niko Salamanca MD Date of Service: 02/19/25 Procedure(s): US renal BI Accession Number(s): [id number] cc: Niko Salamanca MD; Pedro Webber MD [...] 02/19/25 1650 DD/ 1538 TD/TT: 02/19/25 1548 Sports Therapist: [facility] Procedure Note Donotuseinterpreter, Image - 02/19/[address] [address] Ultrasound Report Signed Patient: Rik Carpio#: [id number] : 6Acct:[id number] Age/Sex: 79 / MADM Date: 02/19/25 Loc: HO.US Attending Dr: Niko Salamanca MD Ordering Physician: Niko Salamanca MD Date of Service: 02/19/25 Procedure(s): US renal BI Accession Number(s): [id number] cc: Niko Salamanca MD; Pedro Webber MD [...] 02/19/25 1650 DD/ 1538 TD/TT: 02/19/25 1548 Sports Therapist: [facility] External Provider IMG US PROCEDURES Edited Result - Final * (ABNORMAL) Lipid Panel, Standard (01/16/2025 9:13 AM EDT) Triglycerides 40 <150 mg/dL [facility] Comment:Desirable Triglyceri de: less than 150 mg/dLBorderline High Triglyceride 150-199 mg/dLHigh Triglyceride: 200-499 mg/dLVery High Triglyceride: greater than or equal to 5OO mg/dL Cholesterol 93 <200 mg/dL [facility] Comment:Desirable Cholestero l: less than 200 mg/dLBorderline High Cholesterol: 200-239 mg/dLHigh Cholesterol: greater than 239 mg/dL LDL Cholesterol Calculated 58 <100 mg/dL [facility] Comment:Desirable LDL: less than 100 mg/dLNear Optimal/Above Optimal LDL: 110- 129 mg/dLBorderline High LDL: 130-159 mg/dLHigh LDL: 160-189 mg/dLVery High LDL: greater than or equal to 190 mg/dL HDL Cholesterol 27(L) >40 mg/dL [facility] Comment:Desirable HDL: great er than 40 mg/dL Note: This HDL assay may give artificially low results in patients with liver disease. Blood Venous blood specimen / Unknown 01/16/2025 9:13 AM EDT 01/16/2025 11:29 AM EDT Pedro Julian MD LAB BLOOD ORDERABLES Final Result [facility] [address] [place] [phone] * BI Mammogram Diagnostic Tomosynthesis Bilateral (04/11/2024 3:15 PM EDT) Anatomical Region Laterality Modality Breast Bilateral Mammography 04/11/2024 3:15 PM EDT Narrative 04/11/2024 4:59 PM EDT [facility] [address] [place] [address] Mammography Report Signed Patient: Jamie Carpio MR#: [id number] : 1945 Acct:[id number] Age/Sex: 79 / M ADM Date: 04/11/24 Loc: ALVINA Attending Dr: Pedro Webber MD Ordering Physician: Pedro Webber MD Resu lts: 2Benign Findings Date of Service: 04/11/24 Follow Up: 1 Year From [facility] Mammogram Procedure(s): MM tomosynthesis diagnostic BI Accession Number(s): [id number] cc: Pedro Webber MD EXAMINATION: MM DIAGNOSTIC [...] in OV> 04/11/24 1654 DD/ 1515 TD/TT: Sports Therapist: Procedure Note Donotuseinterpreter, Image - [facility]/11/[facility] [address] [place], [place] [address] Mammography Report Signed Patient: Rik Carpio#: [id number] : 6Acct:[id number] Age/Sex: 79 / MADM Date: 04/11/24 Loc: HO.MAMMO Attending Dr: Pedro Webber MD Ordering Physician: Pedro Webber MDResu lts: 2Benign Findings Date of Service: 04/11/24Follow Up: 1 Year From Orig ina Mammogram Procedure(s): MM tomosynthesis diagnostic BI Accession Number(s): [id number] cc: Pedro Webber MD EXAMINATION: MM DIAGNOSTIC [...] Miguel A Bradley MD in OV> 04/11/24 8314 DD/ 1515 TD/TT: Sports Therapist: Pedro Julian MD IMG BI PROCEDURES Fin al Result * HEPATITIS C AB W/REFL TO HCV RNA, QN, PCR (12/24/2021 8:24 AM EST) HEPATITIS C ANTIBODY NON-REACT SIL NON-REACT SIL [facility] INDEX 0.01 <1.00 [facility] Comment: HCV antibody was non-reactive. There is no laboratory evidence of HCV infection. In most cases, no further action is required. However, if recent HCV exposure is suspected, a test for HCV RNA (test code 69424) is suggested. For additional information please refer to http://education.[employer]/faq/PHW13t7 (This link is being provided for informational/ educational purposes only.) 12/24/2021 8:24 AM EST us Pedro Julian MD HISTORICAL/NON ORDERA BLE LABS Final Result [facility] [address] from Last 3 Months or Most Recently Relevant to Health Maintenance Insurance [facility] LONGTERM OPTIONS (O D-SNP) ANTOINE WANG [id number] * Guarantor: Jamie Carpio Account Type Relation to Patient Date of Phone Billing Address Personal/Family Self [address] CHERYLE Webber Care Teams Senior Mainframe Developer Relationship Specialty Start Date End Date Pedro Pulliam MD [address] [place] [phone] PCP - General Internal Medicine 09/10/14 Niko Salamanca MD [address] [place] [address] Drive [address] [place] [address] Nephrology 01/16/25
== END 2025-05-02 13:42 | disposition home or self-care (01) ==
LOC: HO.ACS 13:14
PROVIDERS: PCP Internal Medicine; Visit Provider Internal Medicine Medical Oncology
DX: Z79.01 Long term (current) use of anticoagulants (principal)

== ENCOUNTER → 2025-05-02 13:14 | Outpatient (BNVA) | payer OTHER, SELFPAY | PROVIDERS: PCP Internal Medicine; Visit Provider Internal Medicine Medical Oncology | DX: Z79.01 Long term (current) use of anticoagulants (principal) | CPT/HCPCS: 85610; 99211 ==

== ENCOUNTER 2025-05-03 08:11 | Outpatient (REF) | payer OTHER, SELFPAY ==
--- OUTSIDE RECORDS SUMMARY | 2025-05-03 08:25 | XMS_ITS | Clinical Summary ---
Author Organization [employer] Address [address] [facility] 7t [place] [address] Care Team Providers Care Electric Utility Lineworker Name Role Phone Pedro Pulliam MD Primary Care Provide r Niko Salamanca MD Unavailable [phone] Allergies No known active allergies Medications [...] pt currently undergoing PT with good results. [facility] health care 09/23/2023 Assessment & Plan (10/17/2024 1:55 PM EST): PSA: 06/27/2024 4.9 under the caer of urology Dr melo Colonoscopy: Normal : Repeat 03/28 due to [...] showed diverticulosis only by Dr connors at [facility] Mixed hyperlipidemia 08/13/2015 09/15/2023 Assessment [...] the past by his vascular surgeon at [facility] (Dr Lind) whose recommendation was conservative treatment, he saw NO role for any type of surgical intervention. He recommended to repeat the scan in 1 year and continue to take Asa 81 mg po daily. Pt was last seen by his setup technician at [facility] 09/14/2023 recommended repeat US and ECHO and 6 month follow up He is on Aspirin started by their office Last Carotid US on record from 02/11/2023 Hypertension 04/21/2012 09/15/2023 Assessment & Plan (04/17/2025 1:40 PM EDT): Pt here for a f/u BP stable He is on a regimen of: Norvasc 5 mg daily, and lasix 20 mg daily prescribed by [facility]. Pt is off Lisinopril 40 mg po daily (stopped by Psychiatric Nursing Assistant 04/01) I had recently lowered his Lasix [...] and lasix 20 mg daily prescribed by [facility]. I had recently lowered his Lasix due [...] and lasix 20 mg daily prescribed by [facility]. I had recently lowered his Lasix due [...] Am and 20 mg PM prescribed by [facility]. I had recently lowered his Lasix due [...] Am and 20 mg PM prescribed by [facility]. Pt developed some bilateral ankle edema due [...] Furosemide 20 mg po BID prescribed by [facility]. Pt developed some bilateral ankle edema due [...] Furosemide 20 mg po BID prescribed by [facility]. Pt developed some bilateral ankle edema due [...] clinical impression. Plan: Breast center referral at [facility] Assessment & Plan (02/01/2024 1:36 PM EDT): [...] Data 04/17/2025 1:15 PM EDT Office Visit [facility] [address] [place] [phone] Pedro Pulliam MD Stage 3b chronic kidney disease (CMS/HCC) (Primary Dx); Longstanding persistent atrial fibrillation (CMS/HCC); Benign prostatic hyperplasia with urinary frequency; Gynecomastia; Primary hypertension; Sciatica of left side 04/17/2025 Travel 04/16/[address] [facility] [address] [place] [phone] Pedro Pulliam MD Chart Prep 04/15/[address] [facility] [address] [place] [address] Pedro Pulliam MD Primary hypertension 04/11/2025 Orders Only GENERIC EXTERNAL DATA DEPARTMENT Provider, Generic External Data 04/09/[address] [facility] [address] [place] [address] Pedro Pulliam MD Iron deficiency; Mixed hyperlipidemia; Primary hypertension 04/04/2025 Orders Only GENERIC EXTERNAL DATA DEPARTMENT Provider, Generic External Data 03/28/2025 10:20 [address] EDT [address] [facility] [address] [place] [address] Imani Lee MD Impacted cerumen of left ear (Primary Dx) 03/28/[address] [facility] [address] [place] [phone] Pedro Pulliam MD Medication Request 03/13/2025 Orders Only GENERIC EXTERNAL DATA DEPARTMENT Provider, Generic External Data 03/01/2025 Orders Only GENERIC EXTERNAL DATA DEPARTMENT Provider, Generic External Data 02/27/[address] [facility] [address] [place] [address] Pedro Pulliam MD Critical lab 02/27/2025 Orders Only GENERIC EXTERNAL DATA DEPARTMENT Provider, Generic External Data 02/21/[address] [address] Justa Christianson RN Results; Lab Orders; Referral 02/20/[address] [facility] [address] [place] [address] Pedro Pulliam MD Epididymoorchitis (Primary Dx) 02/12/[address] [facility] [address] [place] [address] Pedro Pulliam MD Paperwork/Forms 02/11/[address] [facility] [address] [place] [address] Pedro Pulliam MD Vitamin D deficiency 02/07/2025 [...] Description 07/17/2025 2:00 PM EDT Office Visit [facility] [address] [place] [address] Pedro Pulliam MD [address] [place] [address] Health Maintenance Due Date Last Done Comments [...] included. Protime 28.8(H) 11.1 - 13.5 sec [facility] 05/02/2025 1:28 PM EDT 05/02/2025 2:25 PM EDT us Generic External Data Provider LAB BLOOD ORDERAB LES Final Result [facility] [address] [place] [phone] * (ABNORMAL) ~PT, ~INR - ANTI COAG CLINIC (05/02/2025 1:28 PM EDT) Only the most recent of7 resultswithin the time period is included. Prothrombin Time INR 2.4(H) 0.9 - 1.1 [facility] Comment:METER #: [id number] TERNATIONAL NORMALIZED RATIO (INR) REFERENCE RANGES Reference [...] LAB BLOOD ORDERAB LES Final Result [facility] [address] [place] [phone] * XR Lumbar Spine 2-3 Views (04/17/2025 1:24 PM EDT) Anatomical Region Laterality Modality Spine, L-spine Radiographic Micaela ging 04/17/2025 1:24 PM EDT Narrative 04/17/2025 2:57 PM EDT [address] [address] XRay Report Signed Patient: Jamie Carpio MR#: [id number] : 1945 Acct:[id number] Age/Sex: 80 / M ADM Date: 04/17/25 Loc: HO.HHCX Attending Dr: Pedro Webber MD Ordering Physician: Pedro Webber MD Date of Service: 04/17/25 Procedure(s): XR lumbar spine 2-3V Accession Number(s): [id number] cc: Pedro Webber MD EXAMINATION: XR LUMBOSACRAL [...] 04/17/25 1454 DD/ 1324 TD/TT: 04/17/25 1400 Aviation Warfare Systems Operator: Procedure Note Donotuseinterpreter, Image - 04/17/[address] [address] XRay Report Signed Patient: Rik Carpio#: [id number] : 6Acct:[id number] Age/Sex: 80 / MADM Date: 04/17/25 Loc: HO.HHCX Attending Dr: Pedro Webber MD Ordering Physician: Pedro Webber MD Date of Service: 04/17/25 Procedure(s): XR lumbar spine 2-3V Accession Number(s): [id number] cc: Pedro Webber MD EXAMINATION: XR LUMBOSACRAL [...] 04/17/25 1454 DD/ 1324 TD/TT: 04/17/25 1400 [employer] Warfare Systems Operator: us Pedro Julian MD IMG XR PROCEDURES Fin al Result * Urinalysis with Reflex to Microscopic (03/13/2025 2:16 PM EDT) Color Urine Yellow [facility] Appearance Urine Clear [facility] PH 5.0 5.0 - 9.0 [facility] Glucose Urine UA Negative Negative mg/dL [facility] Urine Blood Negative Negative [facility] Specific [place] - Urine 1.010 1.005 - 1.025 [facility] Urine Protein Negative Neg-Trace mg/dL [facility] Urine Ketones Negative Negative mg/dL [facility] Nitrite Urine Negative Negative [facility] Leukocyte Esterase Urine Negative Negative [facility] 03/13/2025 2:16 PM EDT 03/13/2025 3:07 PM EDT us Generic External Data Provider LAB URINE ORDERAB LES Final Result [facility] [address] [place] [phone] * Culture, Urine, Routine (03/13/2025 2:16 PM EDT) Urine Urine specimen obtained by clean catch procedure / Unknown 03/13/2025 2:16 PM EDT 03/13/2025 3:07 PM EDT Comment:UACC Narrative [facility] - 03/14/2025 12:57 PM EDT Urine Culture Report Result Urine Culture < 10,000 cfu/ml Specimen Source: Urine clean catch Generic External Data Provider LAB MICROBIOLOGY - GENERAL ORDERABLES Final Result Performing Organization Address [facility]/ZIP Co de Phone Number [facility] [address] [place] [phone] * (ABNORMAL) Prothrombin Time-INR (02/27/2025 1:31 PM EDT) Prothrombin Time 86.4(H) 10.9 - 12.4 SEC [facility] INTERNATIONAL NORM RATIO 7.4(HH) 0.9 - 1.1 [facility] Comment:RESULTS OF INR BURGOS D TO [...] Final Result Performing Organization Address [facility]/ZIP Co de Phone Number [facility] [address] [place] [phone] * (ABNORMAL) Urinalysis, Complete, with Reflex to Culture (02/22/2025 9:20 AM EDT) Color Urine Dark Yellow [facility] Appearance Urine Turbid [facility] PH 5.0 5.0 - 9.0 [facility] Glucose Urine UA Negative Negative mg/dL [facility] Urine Blood Negative Negative [facility] Specific [place] - Urine 1.025 1.005 - 1.025 [facility] Urine Protein 30 (1+)(A) Neg-Trace mg/dL [facility] Urine Ketones 15 Negative mg/dL [facility] Nitrite Urine Negative Negative [facility] Leukocyte Esterase Urine Trace(A) Negative [facility] RBC Urine 0-2 0 - 2 /HPF [facility] Urine WBC 0-5 0 - 5 /HPF [facility] Urine Squamous Epithelial Cell 3-5 0 - 2 /HPF [facility] CALCIUM OXALATE CRYSTAL, UR Present [facility] Urine Bacteria None Seen None Seen [facility] Hyaline Casts, Urine 3-5 0 - 2 /LPF [facility] GRANULAR CASTS (#/HPF) IN URINE Present [facility] Waxy Casts Present [facility] Urine 02/22/2025 9:20 AM EDT 02/22/2025 11:25 AM EDT Narrative [facility] - 02/22/2025 12:09 PM EDT Urine, Clean Catch us Pedro Julian MD LAB URINE ORDERABLES Final Result [facility] [address] [place] [phone] * US Scrotum (02/19/2025 3:57 PM EDT) Anatomical Region Laterality Modality Body Ultrasound 02/19/2025 3:57 PM EDT Narrative 02/19/2025 4:56 PM EDT [address] [address] Ultrasound Report Signed Patient: Jamie Carpio MR#: [id number] : 1945 Acct:[id number] Age/Sex: 79 / M ADM Date: 02/19/25 Loc: HO.US Attending Dr: Niko Salamanca MD Ordering Physician: Pedro Webber MD Date of Service: 02/19/25 Procedure(s): US scrotum Accession Number(s): [id number] cc: Pedro Webber MD EXAMINATION: US SCROTUM [...] 02/19/25 1653 DD/ 1557 TD/TT: 02/19/25 1613 Aviation Warfare Systems Operator: Procedure Note Donotuseinterpreter, Image - 02/19/[address] [place] [address] [address] Ultrasound Report Signed Patient: Rik Carpio#: [id number] : 6Acct:[id number] Age/Sex: 79 / MADM Date: 02/19/25 Loc: .US Attending Dr: Niko Salamanca MD Ordering Physician: Pedro Webber MD Date of Service: 02/19/25 Procedure(s): US scrotum Accession Number(s): [id number] cc: Pedro Webber MD EXAMINATION: US SCROTUM [...] Miguel A Bradley MD in OV> 02/19/25 0284 DD/ 1557 TD/TT: 02/19/25 1613 [employer] Warfare Systems Operator: Pedro Julian MD IMG US PROCEDURES Ortiz david Result - Final * US RENAL BI (02/19/2025 3:38 PM EDT) Anatomical Region Laterality Modality Abdomen Ultrasound 02/19/2025 3:38 PM EDT Narrative 02/19/2025 4:52 PM EDT [place] [address] Ultrasound Report Signed Patient: Jamie Carpio MR#: [id number] : 1945 Acct:[id number] Age/Sex: 79 / M ADM Date: 02/19/25 Loc: HO.US Attending Dr: Niko Salamanca MD Ordering Physician: Niko Salamanca MD Date of Service: 02/19/25 Procedure(s): US renal BI Accession Number(s): [id number] cc: Niko Salamanca MD; Pedro Webber MD [...] 02/19/25 1650 DD/ 1538 TD/TT: 02/19/25 1548 Aviation Warfare Systems Operator: [facility] Procedure Note Donotuseinterpreter, Image - 02/19/[address] [address] Ultrasound Report Signed Patient: Rik Carpio#: [id number] : 6Acct:[id number] Age/Sex: 79 / MADM Date: 02/19/25 Loc: HO.US Attending Dr: Niko Salamanca MD Ordering Physician: Niko Salamanca MD Date of Service: 02/19/25 Procedure(s): US renal BI Accession Number(s): [id number] cc: Niko Salamanca MD; Pedro Webber MD [...] 02/19/25 1650 DD/ 1538 TD/TT: 02/19/25 1548 Aviation Warfare Systems Operator: [facility] External Provider IMG US PROCEDURES Edited Result - Final * (ABNORMAL) Lipid Panel, Standard (01/16/2025 9:13 AM EDT) Triglycerides 40 <150 mg/dL [facility] Comment:Desirable Triglyceri de: less than 150 mg/dLBorderline High Triglyceride 150-199 mg/dLHigh Triglyceride: 200-499 mg/dLVery High Triglyceride: greater than or equal to 5OO mg/dL Cholesterol 93 <200 mg/dL [facility] Comment:Desirable Cholestero l: less than 200 mg/dLBorderline High Cholesterol: 200-239 mg/dLHigh Cholesterol: greater than 239 mg/dL LDL Cholesterol Calculated 58 <100 mg/dL [facility] Comment:Desirable LDL: less than 100 mg/dLNear Optimal/Above Optimal LDL: 110- 129 mg/dLBorderline High LDL: 130-159 mg/dLHigh LDL: 160-189 mg/dLVery High LDL: greater than or equal to 190 mg/dL HDL Cholesterol 27(L) >40 mg/dL [facility] Comment:Desirable HDL: great er than 40 mg/dL Note: This HDL assay may give artificially low results in patients with liver disease. Blood Venous blood specimen / Unknown 01/16/2025 9:13 AM EDT 01/16/2025 11:29 AM EDT Pedro Julian MD LAB BLOOD ORDERABLES Final Result [facility] [address] [place] [address] [phone] * BI Mammogram Diagnostic Tomosynthesis Bilateral (04/11/2024 3:15 PM EDT) Anatomical Region Laterality Modality Breast Bilateral Mammography 04/11/2024 3:15 PM EDT Narrative 04/11/2024 4:59 PM EDT [facility] [address] [place] [address] Mammography Report Signed Patient: Jamie Carpio MR#: [id number] : 1945 Acct:[id number] Age/Sex: 79 / M ADM Date: 04/11/24 Loc: ALVINA Attending Dr: Pedro Webber MD Ordering Physician: Pedro Webber MD Resu lts: 2Benign Findings Date of Service: 04/11/24 Follow Up: 1 Year From [facility] Mammogram Procedure(s): MM tomosynthesis diagnostic BI Accession Number(s): [id number] cc: Pedro Webber MD EXAMINATION: MM DIAGNOSTIC [...] in OV> 04/11/24 1654 DD/ 1515 TD/TT: Aviation Warfare Systems Operator: Procedure Note Donotuseinterpreter, Image - 04/11/2024 [facility] [address] [place], [place] [address] Mammography Report Signed Patient: Rik Carpio#: [id number] : 6Acct:[id number] Age/Sex: 79 / MADM Date: 04/11/24 Loc: HO.MAMMO Attending Dr: Pedro Webber MD Ordering Physician: Pedro Webber MDResu lts: 2Benign Findings Date of Service: 04/11/24Follow Up: 1 Year From Orig ina Mammogram Procedure(s): MM tomosynthesis diagnostic BI Accession Number(s): [id number] cc: Pedro Webber MD EXAMINATION: MM DIAGNOSTIC [...] Miguel A Bradley MD in OV> 04/11/24 7244 DD/ 1515 TD/TT: [employer] War[employer] Operator: Pedro Julian MD IMG BI PROCEDURES Fin al Result * HEPATITIS C AB W/REFL TO HCV RNA, QN, PCR (12/24/2021 8:24 AM EST) HEPATITIS C ANTIBODY NON-REACT SIL NON-REACT SIL [facility] INDEX 0.01 <1.00 [facility] Comment: HCV antibody was non-reactive. There is no laboratory evidence of HCV infection. In most cases, no further action is required. However, if recent HCV exposure is suspected, a test for HCV RNA (test code 97872) is suggested. For additional information please refer to http://education.[employer]/faq/AQS28y6 (This link is being provided for informational/ educational purposes only.) 12/24/2021 8:24 AM EST us Pedro Julian MD HISTORICAL/NON ORDERA BLE LABS Final Result [facility] [address] from Last 3 Months or Most Recently Relevant to Health Maintenance Insurance [facility] ASSISTED OPTIONS (O D-SNP) ANTOINE WANG [id number] * Guarantor: Jamie Carpio Account Type Relation to Patient Date of Phone Billing Address Personal/Family Self [address] CHERYLE Webber Care Teams Electric Utility Lineworker Relationship Specialty Start Date End Date Pedro Pulliam MD [address] [place] [phone] PCP - General Internal Medicine 09/10/14 Niko Salamanca MD [address] [place] [address] Drive [address] [place] [address] Nephrology 01/16/25
[2025-05-03 11:59] LABS: Alanine Aminotransferase 18 U/L (0-40); Alkaline Phosphatase 110 U/L (39-117); Anion Gap 11 (12-20); Aspartate Amino Transferase 24 U/L (5-37); Bilirubin Total 0.9 mg/dL (0.0-1.0); Blood Urea Nitrogen 21 mg/dL (9-16); Carbon Dioxide 22 mmol/L (22-29); Chloride 111 mmol/L (96-108); Estimated Glomerular Filt Rate 32; Glucose Random 87 mg/dL (60-115); Potassium 4.1 mmol/L (3.3-5.1); Sodium 140 mmol/L (135-145); Total Protein 6.5 g/dL (6.5-8.0)
== END 2025-05-03 08:12 | disposition home or self-care (01) ==
LOC: HO.HHCL 08:11
PROVIDERS: PCP Internal Medicine; Visit Provider Internal Medicine Hypertension Specialist
DX: N18.32 Chronic kidney disease, stage 3b (principal)
CPT/HCPCS: 36415; 80053

== ENCOUNTER 2025-05-08 13:16 | Outpatient (AMB) | payer OTHER, SELFPAY ==
[2025-05-08 13:18] VITALS: BP 130/52; PULSE 59; O2SAT 99; BMI 25.5
--- NOTE | 2025-05-08 13:18 | HO.NEPHOV ---
Vital Signs 05/08/25 13:18 Height 5 ft 9 in Weight 173 lb BMI 25.5 BP 130/52 L Blood Pressure Location Lt brachial Position Sitting Pulse 59 Pulse Source Pulse Oximeter Pulse Oximetry (%) 99 Oxygen Delivery Method Room Air Intake Visit Reasons: 2 MO FU/ Conf Watch Parts Inspector Required: Yes Watch Parts Inspector Name: Eileen [id number] Accompanied by: Self / Same As Patient Allergies No Known Allergies (No Known Allergies*) Allergy (Verified 05/08/25 13:20) Medication List - Last Reconciled 05/08/25 by Niko Salamanca MD amlodipine 5 mg PO DAILY aspirin 81 mg PO DAILY atorvastatin 80 mg PO BEDTIME cholecalciferol (vitamin D3) 25 mcg PO DAILY dorzolamide-timolol 22.3-6.8 mg/mL 22.3 drps ophthalmic (eye) BID ferrous sulfate (FeroSul) 1 tab PO DAILY furosemide 40 mg PO DAILY iron sucrose (Venofer) 200 mg IV Q3D octreotide acetate (Mycapssa) 20 mg PO DAILY Held on 11/20/22. Instructions: rejected by insurance terazosin 5 mg PO BEDTIME 90 days travoprost 0.004% 1 drp ophthalmic (eye) BEDTIME warfarin 5 mg See Protocol PO DAILY HPI Comments Details: Joby is a pleasant 79-year-old man with a history of chronic kidney disease. He has a history of BPH and he has been evaluated by Urology. He has been referred for chronic kidney disease. As of 07/31/2024 serum creatinine was 1.61. This has remained unchanged for at least 2 months. Ongoing medical problems include hypertension and atrial fibrillation. Today he is having some difficulty urination. No hematuria. No urgency. No fever. No shortness of breath no chest pain nausea or vomiting. 03/13/25 ;Still has difficulty urinating ;Has not seen Urology ;Recently has dysuria and treated with antibiotics- cannot recall the name of the medication 05/08/25 After stopping Lisinopril, Cr is better No urinary issues Still has some leg edema No dyspnea PFSH Medical History Atrial fibrillation Tubular adenoma Dyslipidemia HTN (hypertension) Surgical History Hx of bilateral cataract extraction Hx of colonoscopy History of esophagogastroduodenoscopy (EGD) Family History Father Throat cancer Brother Prostate cancer Asthma Sister Hypertension Diabetes Mother Hypertension Social History Household Members: None Housing: Apartment Are you a primary critical care registered nurse to a significant other at home: No Do you presently have visiting nurse or other home services: Yes (every 6 months) Alcohol intake: former Patient Tobacco Use Status: Former Tobacco user Tobacco use type: Cigarette service: No Current occupational status: retired Physical Exam Vital Signs: Last Vital Signs Pulse 59 05/08/25 13:18 BP 130/52 L 05/08/25 13:18 Pulse Ox 99 05/08/25 13:18 Oxygen Delivery Method Room Air 05/08/25 13:18 BMI result Body Mass Index 25.5 Const General: comfortable; No acute distress Orientation/consciousness: patient oriented x3 Eyes General: appearance normal, both eyes and all related structures Visual Damon: normal visual damon by confrontation Neck Neck: Yes supple and Yes no JVD Resp Effort & Inspection: normal respiratory effort and respiratory effort not decreased Cardio Palpation: no palpable S3 and no palpable S4 Heart sounds: no rubs GI Inspection: Yes normal to inspection Palpation (GI): Soft to palpation Percussion: Yes normal to percussion Auscultation: normal bowel sounds General: Yes no CVA tenderness Back/Spine/Pelvis Back: no CVA tenderness Skin General skin exam: no petechiae and no purpura Neuro General: patient oriented x3 and no focal motor deficits Extrem General: No clubbing and Yes edema (1+) Results Reviewed Nephrology Results: Sodium, (135-145) 140 mmol/L 05/03/25 Potassium, (3.3-5.1) 4.1 mmol/L Δ 05/03/25 Chloride, (96-108) 111 mmol/L H 05/03/25 Carbon Dioxide, (22-29) 22 mmol/L 05/03/25 BUN, (9-16) 21 mg/dL H 05/03/25 Creatinine, (0.5-1.4) 2.00 mg/dL H 05/03/25 Calcium, (8.4-10.2) 9.0 mg/dL Δ 05/03/25 Renal US 02/19/25 Assessment & Plan Assessment & Plan (1) CKD (chronic kidney disease): Code(s): N18.9 - Chronic kidney disease, unspecified Category: Medical (2) HTN (hypertension): Code(s): I10 - Essential (primary) hypertension Category: Medical Qualifiers: Hypertension type: unspecified Qualified Code(s): I10 - Essential (primary) hypertension (3) Anemia: Code(s): D64.9 - Anemia, unspecified Category: Medical (4) BPH w urinary obs/LUTS: Code(s): N40.1 - Benign prostatic hyperplasia with lower urinary tract symptoms; N13.8 - Other obstructive and reflux uropathy Category: Medical Plan . 80-year-old man with longstanding hypertension and BPH has chronic kidney disease. Serum creatinine has been stable around 1.6 mg/dL. Recent bump to 1.9 to 2.4 He has a history of bladder outlet obstruction and he was seen by Dr. Melo urinary retention/obstructive uropathy to explain CKD. Needs follow up with Urology Other possibility would include hypertensive nephrosclerosis. In the past urine sediments were bland therefore glomerular nephritis or interstitial disease seem unlikely. Repeat renal panel Stay on low-sodium diet Continue to increase p.o. intake. blood pressure is acceptable. I will continue the same antihypertensive medications He should stay on low-sodium diet. 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 Due to worsening Creatinine and mild hyperkalemia, ? due to obstruction bs recent uti/antibiotics; Unclear if he was on Bactrim I will stop Lisinopril for now Will repeat urine culture since he still has urinary symptoms Needs urology follow up. ( has appt on 04/03/25) 05/08/25 Creatinine is back to baseline Hold off on Lisinopril for now Potassium is back to normal BP acceptable Recheck Renal panel and CBC before next visit; Reassess for Epogen Orders: Orders Basic Metabolic Panel 3 Months N18.9 - Chronic kidney disease, unspecified Complete Blood Count no Diff 3 Months N18.9 - Chronic kidney disease, unspecified Creatinine Urine 3 Months N18.9 - Chronic kidney disease, unspecified Immunofixation Pnl, Serum 3 Months N18.9 - Chronic kidney disease, unspecified Total Protein Urine Random 3 Months N18.9 - Chronic kidney disease, unspecified UA and rflx microscopic 3 Months N18.9 - Chronic kidney disease, unspecified Protein Electrophoresis, Serum 3 Months N18.9 - Chronic kidney disease, unspecified Coding Level of Care Code Est Pt Level 4 (33516) Diagnoses CKD (chronic kidney disease) N18.9 Hypertension, unspecified type I10 Hypertension type: unspecified Anemia D64.9 BPH w urinary obs/LUTS N40.1; N13.8
--- OUTSIDE RECORDS SUMMARY | 2025-05-08 14:28 | XMS_ITS | Clinical Summary ---
[facility] Facility Address [address] [address] Care Team Providers Care Die Mechanic Name Role Phone Pedro Snow MD Primary [...] age to complete this topic Care Teams Die Mechanic Relationship Specialty Start Date End Date Pedro Snow MD PCP - General 11/18/20
--- OUTSIDE RECORDS SUMMARY | 2025-05-08 14:28 | XMS_ITS | Clinical Summary ---
Author Organization [employer] Address [address] [facility] [address] [place] [address] Care Team Providers Care Senior Project Leader/Team Lead Name Role Phone Pedro Pulliam MD Primary Care Provide r Niko Salamanca MD Unavailable [phone] Allergies No known active allergies Medications [...] undergoing PT with good results. [facility] health care 09/23/2023 Assessment & Plan (10/17/2024 [...] showed diverticul[place] [facility] Mixed hyperlipidemia 08/13/2015 09/15/2023 Assessment [...] his vascular [place] [facility] [place] Lind[place] whose recommendation was conservative treatment, he saw NO role for any type of surgical intervention. He recommended to repeat the scan in 1 year and continue to take Asa 81 mg po daily. Pt was last seen by his lockstitch waistband setter at [facility] 09/14/2023 recommended repeat US and ECHO and 6 month follow up He is on Aspirin started by their office Last Carotid US on record from 02/11/2023 Hypertension 04/21/2012 09/15/2023 Assessment & Plan (04/17/2025 1:40 PM EDT): Pt here for a f/u BP stable He is on a regimen of: Norvasc 5 mg daily, and lasix 20 mg daily prescribed by Set Making Machine Operator. Pt is off Lisinopril 40 mg po daily (stopped by [employer] 04/01) I had recently lowered his Lasix [...] and lasix 20 mg daily prescribed by Set Making Machine Operator. I had recently lowered his Lasix [...] and lasix 20 mg daily prescribed by Set Making Machine Operator. I had recently lowered his Lasix [...] Am and 20 mg PM prescribed by Set Making Machine Operator. I had recently lowered his Lasix [...] Am and 20 mg PM prescribed by Set Making Machine Operator. Pt developed some bilateral ankle edema [...] Furosemide 20 mg po BID prescribed by Set Making Machine Operator. Pt developed some bilateral ankle edema [...] Furosemide 20 mg po BID prescribed by Set Making Machine Operator. Pt developed some bilateral ankle edema [...] Breast center referral at [facility] Assessment & Plan (02/01/2024 1:36 PM EDT): [...] Encounters Date Type Department Care Team Description 05/03/2025 Results Follow-Up [facility] [address] [place] [phone] Pedro Pulliam MD Comprehensive Metabolic Panel 05/02/2025 Orders Only GENERIC EXTERNAL DATA DEPARTMENT Provider, Generic External Data 04/17/2025 1:15 PM EDT Office Visit [facility] [address] [place] [phone] Pedro Pulliam MD Stage 3b chronic kidney disease (CMS/HCC) (Primary Dx); Longstanding persistent atrial fibrillation (CMS/HCC); Benign prostatic hyperplasia with urinary frequency; Gynecomastia; Primary hypertension; Sciatica of left side 04/17/2025 Travel 04/16/2025 Telephone [facility] [address] [place] [address] Pedro Pulliam MD Chart Prep 04/15/2025 Refill [facility] [address] [place] [address] Pedro Pulliam MD Primary hypertension 04/11/2025 Orders Only GENERIC EXTERNAL DATA DEPARTMENT Provider, Generic External Data 04/09/2025 Refill [facility] [address] [place] [address] Pedro Pulliam MD Iron deficiency; Mixed hyperlipidemia; Primary hypertension 04/04/2025 Orders Only GENERIC EXTERNAL DATA DEPARTMENT Provider, Generic External Data 03/28/2025 10:20 AM EDT Office Visit [facility] [address] [place] [phone] Imani Lee MD Impacted cerumen of left ear (Primary Dx) 03/28/2025 Telephone [facility] [address] [place] [phone] Pedro Pulliam MD Medication Request 03/13/2025 Orders Only GENERIC EXTERNAL DATA DEPARTMENT Provider, Generic External Data 03/01/2025 Orders Only GENERIC EXTERNAL DATA DEPARTMENT Provider, Generic External Data 02/27/2025 Telephone [facility] PEDIATRICS [address] [place] [address] Pedro Pulliam MD Critical lab 02/27/2025 Orders Only GENERIC EXTERNAL DATA DEPARTMENT Provider, Generic External Data 02/21/2025 Telephone [facility] [address] [place] [phone] Justa Christianson, [place] Results; Lab Orders; Referral 02/20/2025 Orders Only [facility] [address] [place] [phone] Pedro Pulliam MD Epididymoorchitis (Primary Dx) 02/12/[address] [address] Pedro Pulliam MD Paperwork/Forms 02/11/2025 Refill [facility] [address] [place] [address] Pedro Pulliam MD Vitamin D deficiency 02/07/2025 [...] Description 07/17/2025 2:00 PM EDT Office Visit [facility] [address] [place] [address] Pedro Pulliam MD [address] [place] [address] Health Maintenance Due Date Last Done Comments [...] Procedure Name Priority Date/Time Associated Diagnosis Comments COMPREHENSIVE METABOLIC PANEL Routine 05/03/2025 8:16 AM EDT Stage 3b chronic kidney disease (CMS/HCC) PROTHROMBIN TIME WHOLE BLD POC Routine 05/02/2025 [...] Relevant to Health Maintenance Results * (ABNORMAL) Comprehensive Metabolic Panel (05/03/2025 8:16 AM EDT) Sodium 140 135 - 145 mmol/L [facility] Potassium 4.1 3.3 - 5.1 mmol/L [facility] Chloride 111(H) 96 - 108 mmol/L [facility] Carbon Dioxide 22 22 - 29 mmol/L [facility] Anion Gap 11(L) 12 - 20 [facility] Urea Nitrogen (BUN) 21(H) 9 - 16 mg/dL [facility] Creatinine, Serum 2.00(H) 0.5 - 1.4 mg/dL [facility] Estimated Glomerular Filt Rate 32 [facility] Comment:Chronic Kidney Disea se: Estimated GFR < 60 mL/min/1.78g8Uucijs Kidney Disease: Estimated GFR < 15 mL/min/1.73m2 Glucose 87 60 - 115 mg/dL [facility] Calcium 9.0 8.4 - 10.2 mg/dL [facility] Bilirubin, Total 0.9 0.0 - 1.0 mg/dL [facility] Aspartate Amino Transferase 24 5 - 37 U/L [facility] Alanine Aminotransferase 18 0 - 40 U/L [facility] Total Protein 6.5 6.5 - 8.0 g/dL [facility] Albumin Level 4.0 3.5 - 5.0 g/dL [facility] Alkaline Phosphatase 110 39 - 117 U/L [facility] Blood Venous blood specimen / Unknown 05/03/2025 8:16 AM EDT 05/03/2025 11:27 AM EDT Pedro Julian MD LAB BLOOD ORDERABLES Final Result Performing Organization Address [facility] Co de Phone Number [facility] [address] [place] [phone] * (ABNORMAL) PROTHROMBIN TIME WHOLE BLD POC (05/02/2025 1:28 PM EDT) Only the most recent of7 resultswithin the time period is included. Pathologist [facility] Protime 28.8(H) 11.1 - 13.5 sec [facility] 05/02/2025 1:28 PM EDT 05/02/2025 2:25 PM EDT us Generic External Data Provider LAB BLOOD ORDERAB LES Final Result Performing Organization Address [facility] Co de Phone Number [facility] [address] [place] [phone] * (ABNORMAL) ~PT, ~INR - ANTI COAG CLINIC (05/02/2025 1:28 PM EDT) Only the most recent of7 resultswithin the time period is included. Pathologist [facility] Prothrombin Time INR 2.4(H) 0.9 - 1.1 [facility] Comment:METER #: [id number] TERNATIONAL NORMALIZED RATIO (INR) REFERENCE RANGES Reference [...] [facility] Co de Phone Number [facility] [address] [place] [phone] * XR Lumbar Spine 2-3 Views (04/17/2025 1:24 PM EDT) Anatomical Region Laterality Modality Spine, L-spine Radiographic Micaela ging 04/17/2025 1:24 PM EDT Narrative 04/17/2025 2:57 PM EDT [address] [address] XRay Report Signed Patient: Jamie Carpio MR#: [id number] : 1945 Acct:[id number] Age/Sex: 80 / M ADM Date: 04/17/25 Loc: HO.HHCX Attending Dr: Pedro Webber MD Ordering Physician: Pedro Webber MD Date of Service: 04/17/25 Procedure(s): XR lumbar spine 2-3V Accession Number(s): [id number] cc: Pedro Webber MD EXAMINATION: XR LUMBOSACRAL [...] 02:54 PM EDT RP Dictated By: Zay oMlina MD Signed By: <Electronically signed by Zay Molina MD in OV> 04/17/25 1454 DD/ 1324 TD/TT: 04/17/25 1400 Surg Tech: Procedure Note Donotuseinterpreter, Image - 04/17/[address] [address] XRay Report Signed Patient: Rik Carpio#: [id number] : 6Acct:[id number] Age/Sex: 80 / MADM Date: 04/17/25 Loc: HO.HHCX Attending Dr: Pedro Webber MD Ordering Physician: Pedro Webber MD Date of Service: 04/17/25 Procedure(s): XR lumbar spine 2-3V Accession Number(s): [id number] cc: Pedro Webber MD EXAMINATION: XR LUMBOSACRAL [...] 04/17/25 1454 DD/ 1324 TD/TT: 04/17/25 1400 Surg Tech: us Pedro Julian MD IMG XR PROCEDURES Fin al Result * Urinalysis with Reflex to Microscopic (03/13/2025 2:16 PM EDT) Color Urine Yellow [facility] Appearance Urine Clear [facility] PH 5.0 5.0 - 9.0 [facility] Glucose Urine UA Negative Negative mg/dL [facility] Urine Blood Negative Negative [facility] Specific [place] - Urine 1.010 1.005 - 1.025 [facility] Urine Protein Negative Neg-Trace mg/dL [facility] Urine Ketones Negative Negative mg/dL [facility] Nitrite Urine Negative Negative [facility] Leukocyte Esterase Urine Negative Negative [facility] 03/13/2025 2:16 PM EDT 03/13/2025 3:07 PM EDT us Generic External Data Provider LAB URINE ORDERAB LES Final Result [facility] [address] [place] [phone] * Culture, Urine, Routine (03/13/2025 2:16 PM EDT) Urine Urine specimen obtained by clean catch procedure / Unknown 03/13/2025 2:16 PM EDT 03/13/2025 3:07 PM EDT Comment:UACC Narrative [facility] - 03/14/2025 12:57 PM EDT Urine Culture Report Result Urine Culture < 10,000 cfu/ml Specimen Source: Urine clean catch us Generic External Data Provider LAB MICROBIOLOGY - GENERAL ORDERABLES Final Result Performing Organization Address [facility] de Phone Number [facility] [address] [place] [phone] * (ABNORMAL) Prothrombin Time-INR (02/27/2025 1:31 PM EDT) Prothrombin Time 86.4(H) 10.9 - 12.4 SEC [facility] INTERNATIONAL NORM RATIO 7.4(HH) 0.9 - 1.1 [facility] Comment:RESULTS OF INR BURGOS D [...] ORDERAB LES Final Result Performing Organization Address [facility] Co de Phone Number [facility] [address] [place] [phone] * (ABNORMAL) Urinalysis, Complete, with Reflex to Culture (02/22/2025 9:20 AM EDT) Color Urine Dark Yellow [facility] Appearance Urine Turbid [facility] PH 5.0 5.0 - 9.0 [facility] Glucose Urine UA Negative Negative mg/dL [facility] Urine Blood Negative Negative [facility] Specific [place] - Urine 1.025 1.005 - 1.025 [facility] Urine Protein 30 (1+)(A) Neg-Trace mg/dL [facility] Urine Ketones 15 Negative mg/dL [facility] Nitrite Urine Negative Negative [facility] Leukocyte Esterase Urine Trace(A) Negative [facility] RBC Urine 0-2 0 - 2 /HPF [facility] Urine WBC 0-5 0 - 5 /HPF [facility] Urine Squamous Epithelial Cell 3-5 0 - 2 /HPF [facility] CALCIUM OXALATE CRYSTAL, UR Present [facility] Urine Bacteria None Seen None Seen [facility] Hyaline Casts, Urine 3-5 0 - 2 /LPF [facility] GRANULAR CASTS (#/HPF) IN URINE Present [facility] Waxy Casts Present [facility] Urine 02/22/2025 9:20 AM EDT 02/22/2025 11:25 AM EDT Narrative [facility] - 02/22/2025 12:09 PM EDT Urine, Clean Catch us Pedro Julian MD LAB URINE ORDERABLES Final Result [facility] [address] [place] [phone] * US Scrotum (02/19/2025 3:57 PM EDT) Anatomical Region Laterality Modality Body Ultrasound 02/19/2025 3:57 PM EDT Narrative 02/19/2025 4:56 PM EDT [place] [address] Ultrasound Report Signed Patient: Jamie Carpio MR#: [id number] : 1945 Acct:[id number] Age/Sex: 79 / M ADM Date: 02/19/25 Loc: .US Attending Dr: Niko Salamanca MD Ordering Physician: Pedro Webber MD Date of Service: 02/19/25 Procedure(s): US scrotum Accession Number(s): [id number] cc: Pedro Webber MD EXAMINATION: US SCROTUM [...] 02/19/25 1653 DD/ 1557 TD/TT: 02/19/25 1613 Surg Tech: Procedure Note Donotuseinterpreter, Image - 02/19/[address] [address] Ultrasound Report Signed Patient: Rik Carpio#: [id number] : 6Acct:[id number] Age/Sex: 79 / MADM Date: 02/19/25 Loc: HO.US Attending Dr: Niko Salamanca MD Ordering Physician: Pedro Webber MD Date of Service: 02/19/25 Procedure(s): US scrotum Accession Number(s): [id number] cc: Pedro Webber MD EXAMINATION: US SCROTUM [...] 02/19/25 1653 DD/ 1557 TD/TT: 02/19/25 1613 Surg Tech: us Pedro Julian MD IMG US PROCEDURES Ortiz david Result - Final * US RENAL BI (02/19/2025 3:38 PM EDT) Anatomical Region Laterality Modality Abdomen Ultrasound 02/19/2025 3:38 PM EDT Narrative 02/19/2025 4:52 PM EDT [address] [address] Ultrasound Report Signed Patient: Jamie Carpio MR#: [id number] : 1945 Acct:[id number] Age/Sex: 79 / M ADM Date: 02/19/25 Loc: HO.US Attending Dr: Niko Salamanca MD Ordering Physician: Niko Salamanca MD Date of Service: 02/19/25 Procedure(s): US renal BI Accession Number(s): [id number] cc: Niko Salamanca MD; Pedro Webber MD [...] 02/19/25 1650 DD/ 1538 TD/TT: 02/19/25 1548 Surg Tech: [facility] Procedure Note Donotuseinterpreter, Image - 02/19/2025 [place] [address] Ultrasound Report Signed Patient: Rik Carpio#: [id number] : 6Acct:[id number] Age/Sex: 79 / MADM Date: 02/19/25 Loc: HO.US Attending Dr: Niko Salamanca MD Ordering Physician: Niko Salamanca MD Date of Service: 02/19/25 Procedure(s): US renal BI Accession Number(s): [id number] cc: Niko Salamanca MD; Pedro Webber MD [...] 02/19/25 1650 DD/ 1538 TD/TT: 02/19/25 1548 Surg Tech: [place] us [facility] External Provider IMG US PROCEDURES Edited Result - Final * (ABNORMAL) Lipid Panel, Standard (01/16/2025 9:13 AM EDT) Triglycerides 40 <150 mg/dL [facility] Comment:Desirable Triglyceri de: less than 150 mg/dLBorderline High Triglyceride 150-199 mg/dLHigh Triglyceride: 200-499 mg/dLVery High Triglyceride: greater than or equal to 5OO mg/dL Cholesterol 93 <200 mg/dL [facility] Comment:Desirable Cholestero l: less than 200 mg/dLBorderline High Cholesterol: 200-239 mg/dLHigh Cholesterol: greater than 239 mg/dL LDL Cholesterol Calculated 58 <100 mg/dL [facility] Comment:Desirable LDL: less than 100 mg/dLNear Optimal/Above Optimal LDL: 110- 129 mg/dLBorderline High LDL: 130-159 mg/dLHigh LDL: 160-189 mg/dLVery High LDL: greater than or equal to 190 mg/dL HDL Cholesterol 27(L) >40 mg/dL [facility] Comment:Desirable HDL: great er than 40 mg/dL Note: This HDL assay may give artificially low results in patients with liver disease. Blood Venous blood specimen / Unknown 01/16/2025 9:13 AM EDT 01/16/2025 11:29 AM EDT us Pedro Julian MD LAB BLOOD ORDERABLES Final Result [facility] [address] [place] [address] [phone] * BI Mammogram Diagnostic Tomosynthesis Bilateral (04/11/2024 3:15 PM EDT) Anatomical Region Laterality Modality Breast Bilateral Mammography 04/11/2024 3:15 PM EDT Narrative 04/11/2024 4:59 PM EDT [address] [place] [address] Mammography Report Signed Patient: Jamie Carpio MR#: [id number] : 1945 Acct:[id number] Age/Sex: 79 / M ADM Date: 04/11/24 Loc: HO.MAMMO Attending Dr: Pedro Webber MD Ordering Physician: Pedro Webber MD Resu lts: 2Benign Findings Date of Service: 04/11/24 Follow Up: 1 Year From [facility] Mammogram Procedure(s): MM tomosynthesis diagnostic BI Accession Number(s): [id number] cc: Pedro Webber MD EXAMINATION: MM DIAGNOSTIC [...] in OV> 04/11/24 1654 DD/ 1515 TD/TT: Surg Tech: Procedure Note Donotuseinterpreter, Image - 04/11/2024 [facility] [address] [place] [address] [place] [address] Mammography Report Signed Patient: Rik Carpio#: [id number] : 6Acct:[id number] Age/Sex: 79 / MADM Date: 04/11/24 Loc: HO.MAMMO Attending Dr: Pedro Webber MD Ordering Physician: Pedro Webber MDResu lts: 2Benign Findings Date of Service: 04/11/24Follow Up: 1 Year From Orig ina Mammogram Procedure(s): MM tomosynthesis diagnostic BI Accession Number(s): [id number] cc: Pedro Webber MD EXAMINATION: MM DIAGNOSTIC [...] in OV> 04/11/24 1654 DD/ 1515 TD/TT: Surg Tech: Pedro Julian MD IMG BI PROCEDURES Fin al Result * HEPATITIS C AB W/REFL TO HCV RNA, QN, PCR (12/24/2021 8:24 AM EST) HEPATITIS C ANTIBODY NON-REACT SIL NON-REACT SIL [facility] INDEX 0.01 <1.00 [facility] Comment: HCV antibody was non-reactive. There is no laboratory evidence of HCV infection. In most cases, no further action is required. However, if recent HCV exposure is suspected, a test for HCV RNA (test code 99400) is suggested. For additional information please refer to http://education.[employer]/faq/DBZ10n7 (This link is being provided for informational/ educational purposes only.) 12/24/2021 8:24 AM EST Pedro Julian MD HISTORICAL/NON ORDERA BLE LABS Final Result [facility]where [address] from Last 3 Months or Most Recently Relevant to Health Maintenance Insurance [facility] OPTIONS (HMO D-SNP) Care Teams Senior Project Leader/Team Lead Relationship Specialty Start Date End Date Pedro Pulliam MD [address] [place] [phone] PCP - General Internal Medicine 09/10/14 Niko Salamanca MD [address] [place] [address] [address] [place] [phone] Nephrology 01/16/25
--- OUTSIDE RECORDS SUMMARY | 2025-05-08 14:28 | XMS_ITS | Clinical Summary ---
[facility] Organization [facility] Address [address] [place] [address] Care Team Providers Care Metal Loader Name Role Phone Unavailable Primary Care Provider [...] - 1-dose 75+ series) 2021 COVID-19 Vaccine (1 - 2023-2 5 season) 2024 Influenza Vaccine (#1) 2025 HIB Vaccines Aged Out No longer [...] Documents on File Type Date Recorded Patient Planning Intern Expl anation Health Care Decision (hx) 01/10/2020 AD PHILLIP DIRECTIVE
--- OUTSIDE RECORDS SUMMARY | 2025-05-08 14:28 | XMS_ITS | Patient Health Record ---
Author Organization [facility] Address [address] [place] [address] Care Team Providers Care English Faculty Member Name Role Phone Gwendolyn Julian MD, Pedro Primary Care Provide r Unavailable Favian Hardin Jr Unavailable Reason For Referral No Information Plan Of Treatment No Information Insurance Providers Payer Name Payer Address Payer Phone Subscriber Number Group Number Insured Name Patient Relationship to Insured Coverage Start Date Coverage End Date MEDICARE OF [facility] [address] [facility] [place] [id number] LILY RINCON Self - patient is the insured
== END 2025-05-08 13:31 | disposition home or self-care (01) ==
LOC: HO.HKA 13:17
PROVIDERS: PCP Internal Medicine; Visit Provider Internal Medicine Hypertension Specialist
DX: I12.9 Hypertensive chronic kidney disease with stage 1 through stage 4 chronic kidney disease, or unspecified chronic kidney disease (principal); N18.9 Chronic kidney disease, unspecified; D64.9 Anemia, unspecified; N40.1 Benign prostatic hyperplasia with lower urinary tract symptoms; N13.8 Other obstructive and reflux uropathy
CPT/HCPCS: 99214

== ENCOUNTER → 2025-05-08 13:16 | Outpatient (BNVA) | payer OTHER, SELFPAY | PROVIDERS: PCP Internal Medicine; Visit Provider Internal Medicine Hypertension Specialist | DX: I10 Essential (primary) hypertension (principal); D64.9 Anemia, unspecified; N40.1 Benign prostatic hyperplasia with lower urinary tract symptoms; N13.8 Other obstructive and reflux uropathy; E87.6 Hypokalemia | CPT/HCPCS: 99212 ==

== ENCOUNTER 2025-05-14 09:47 | Outpatient (AMB) | payer OTHER, SELFPAY ==
--- NOTE | 2025-05-14 09:49 | MHC.OFFVIS ---
Vital Signs 05/14/25 09:53 Height 5 ft 9 in Weight 171 lb 15.369 oz BMI 25.4 BP 134/56 L Blood Pressure Location Lt brachial Position Sitting Pulse 49 L Intake Visit Reasons: 6m f/u Iron deficiency anemia Intake Note: Jamie presents in the office as a 6 month follow up for iron def anemia. CC: He is not having any concerns at this time. Shredding Machine Operator Required: Yes Allergies No Known Allergies (No Known Allergies*) Allergy (Verified 05/14/25 09:53) HPI HPI 6m f/u Iron deficiency anemia: Details: 80 year old Croatian-speaking male with hypertension, kidney disease, hyperlipidemia, right carotid artery occlusion, cystitis, BPH, history of colon polyps and on coumadin for a-fib as well as aspirin who I am seeing for follow up of ENRIQUE, Patient Had admission for ENRIQUE and endoscopies incl VCE 03/2021 UA 03/2021---neg for blood Last EGd/colonoscopy: 03/2021--- diverticulosis, hemorrhoids, bx neg for celiac and enteropathy but pos for H pylori Rx with triple therapy VCE: 03/2021-- nml, no active bleeding seen Seeing Dr Wills who is arranging periodic blood transfusions and iron transfusions. Patient has had other endoscopies in past for ENRIQUE without any obvious etiology. 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 VITAL SIGNS:see workflow HEENT: Nonicteric sclerae, PERRLA, EOMI. Oropharynx clear. Moist mucous membranes. Conjunctivae appear well perfused. No thyroid mass. CHEST: Chest wall is nontender. HEART: Regular rate and rhythm with diastolic murmur at left sternal edge LUNGS: Clear to auscultation bilaterally. ABDOMEN: Soft, positive bowel sounds, nontender, no organomegaly.no flank tenderness SKIN: No rash, no excessive bruising, petechiae, or purpura. NEUROLOGIC: Cranial nerves II-XII intact without motor/sensory deficit. Psych--nml A/P Occult obscure GI blood loss, on coumadin, but also has CKD stage III which is likely playing a role --no overt bleeding at this time, not on octreotide PLAN: with Iron replacement prn, periodic monitoring of HGB PFSH Medical History Atrial fibrillation Tubular adenoma Dyslipidemia HTN (hypertension) Surgical History Hx of bilateral cataract extraction Hx of colonoscopy History of esophagogastroduodenoscopy (EGD) Family History Father Throat cancer Brother Prostate cancer Asthma Sister Hypertension Diabetes Mother Hypertension Social History Household Members: None Housing: Apartment Are you a primary personal care worker to a significant other at home: No Do you presently have visiting nurse or other home services: Yes (every 6 months) Alcohol intake: former Patient Tobacco Use Status: Former Tobacco user Tobacco use type: Cigarette service: No Current occupational status: retired Physical Exam Vital Signs: Last Vital Signs Pulse 49 L 05/14/25 09:53 BP 134/56 L 05/14/25 09:53 BMI result Body Mass Index 25.4 Assessment & Plan Assessment & Plan (1) Iron deficiency anemia: Comment: Chronic iron deficiency anemia Code(s): D50.9 - Iron deficiency anemia, unspecified Category: Medical Plan: as above Coding Level of Care Code Est Pt Level 3 (39347) Diagnoses Iron deficiency anemia D50.9
[2025-05-14 09:53] VITALS: BP 134/56; PULSE 49; BMI 25.4
--- OUTSIDE RECORDS SUMMARY | 2025-05-14 10:21 | XMS_ITS | Clinical Summary ---
Author Organization [facility] Address [address] [place] [address] Care Team Providers Care Hand Roller Name Role Phone Perdo Pulliam MD Primary Care Provide r Niko Salamanca MD Unavailable [phone] Allergies No known active allergies Medications [...] DAILY 90 tablet 1 024 2024 Discontinued lisinopril 40 MG tabletIndications :Primary [...] pt currently undergoing PT with good results. [facility] care 09/23/2023 Assessment & Plan [...] diverticulosis only by Dr connors at [facility] Mixed hyperlipidemia 08/13/2015 09/15/2023 [...] the past by his vascular surgeon at [facility] (Dr Lind) whose recommendation was conservative treatment, he saw NO role for any type of surgical intervention. He recommended to repeat the scan in 1 year and continue to take Asa 81 mg po daily. Pt was last seen by his drum plater at [facility] 09/14/2023 recommended repeat US and ECHO and 6 month follow up He is on Aspirin started by their office Last Carotid US on record from 02/11/2023 Hypertension 04/21/2012 09/15/2023 Assessment & Plan (04/17/2025 1:40 PM EDT): Pt here for a f/u BP stable He is on a regimen of: Norvasc 5 mg daily, and lasix 20 mg daily prescribed by Pitch Gatherer. Pt is off Lisinopril 40 mg po daily (stopped by Industrial Insulator 04/01) I had recently lowered his Lasix [...] and lasix 20 mg daily prescribed by Pitch Gatherer. I had recently lowered his Lasix due [...] and lasix 20 mg daily prescribed by Pitch Gatherer. I had recently lowered his Lasix due [...] Am and 20 mg PM prescribed by Pitch Gatherer. I had recently lowered his Lasix due [...] Am and 20 mg PM prescribed by Pitch Gatherer. Pt developed some bilateral ankle edema due [...] Furosemide 20 mg po BID prescribed by Pitch Gatherer. Pt developed some bilateral ankle edema due [...] Furosemide 20 mg po BID prescribed by Pitch Gatherer. Pt developed some bilateral ankle edema due [...] clinical impression. Plan: Breast center referral at [facility] Assessment & Plan (02/01/2024 1:36 PM EDT): [...] Department Care Team Description 05/03/2025 Results Follow-Up [facility] [address] [place] [address] Pedro Pulliam MD Comprehensive Metabolic Panel 05/02/2025 Orders Only GENERIC EXTERNAL DATA DEPARTMENT Provider, Generic External Data 04/17/2025 1:15 PM EDT Office Visit [facility] [address] [place] [address] Pedro Pulliam MD Stage 3b chronic kidney disease (CMS/HCC) (Primary Dx); Longstanding persistent atrial fibrillation (CMS/HCC); Benign prostatic hyperplasia with urinary frequency; Gynecomastia; Primary hypertension; Sciatica of left side 04/17/2025 Travel 04/16/2025 Telephone [facility] [address] [place] [address] Pedro Pulliam MD Chart Prep 04/15/2025 Refill [facility] [address] [place] [address] Pedro Pulliam MD Primary hypertension 04/11/2025 Orders Only GENERIC EXTERNAL DATA DEPARTMENT Provider, Generic External Data 04/09/2025 Refill [facility] [address] [place] [address] Pedro Pulliam MD Iron deficiency; Mixed hyperlipidemia; Primary hypertension 04/04/2025 Orders Only GENERIC EXTERNAL DATA DEPARTMENT Provider, Generic External Data 03/28/2025 10:20 AM EDT Office Visit [facility] [address] [place] [address] Imani Lee MD Impacted cerumen of left ear (Primary Dx) 03/28/2025 Telephone [facility] [address] [place] [phone] Pedro Pulliam MD Medication Request 03/13/2025 Orders Only GENERIC EXTERNAL DATA DEPARTMENT Provider, Generic External Data 03/01/2025 Orders Only GENERIC EXTERNAL DATA DEPARTMENT Provider, Generic External Data 02/27/2025 Telephone [facility] [address] [place] [phone] Pedro Pulliam MD Critical lab 02/27/2025 Orders Only GENERIC EXTERNAL DATA DEPARTMENT Provider, Generic External Data 02/21/[address] [address] Justa Christianson RN Results; Lab Orders; Referral 02/20/2025 Orders Only [address] [address] Pedro Pulliam MD Epididymoorchitis (Primary Dx) 02/12/[address] [address] Pedro Pulliam MD Paperwork/Forms from Last 3 Months Immunizations Immunization Administration [...] Description 07/17/2025 2:00 PM EDT Office Visit [facility] [address] [place], [place] [phone] Pedro Pulliam MD [address] [place], [place] [phone] Health Maintenance Due Date Last Done Comments Zoster Vaccines (3 of 3) 03/04/2020 01/08/2020, 02/07 RSV Patients and Patients Aged 60 years or older (1 - 1-dose 75+ series) 2021 COVID-19 Vaccine ( season) 2024 11/11/2021, 03/05/2021, 02/05/2021 Mammogram 04/11/2025 04/11/2024, 04/11/2024 Influenza Vaccine (#1) 2025 , 09/23/2023, 09/29/2022, Additional history exists Alcohol/Substance Use Screening 10/17/2025 10/17/2024 Depression Screening 10/17/2025 10/17/2024, 10/17/20 24 SDOH Screening 01/02/2026 01/02/2025 Tobacco Screening 03/28/2026 03/28/2025 Lipid Panel 01/16/2030 01/16/2025, 1203/2023, 12/24/2021, Additional history exists DTaP/Tdap/Td Vaccines (3 - Td or Tdap) 05/04/2034 05/04/2024, 04/24/2014, 03/31/2004 Pneumococcal Vaccine: 50+ Years Completed 08/22/2015, 01/03/2014 Hepatitis C Screening Completed 12/24/2021 HIB Vaccines Aged Out No longer eligi [...] RENAL BI Routine 02/19/2025 3:38 PM EDT LIPID PANEL, STANDARD Routine 01/16/2025 [...] EDT) Sodium 140 135 - 145 mmol/L [facility] Potassium 4.1 3.3 - 5.1 mmol/L [facility] Chloride 111(H) 96 - 108 mmol/L [facility] Carbon Dioxide 22 22 - 29 mmol/L [facility] Anion Gap 11(L) 12 - 20 [facility] Urea Nitrogen (BUN) 21(H) 9 - 16 mg/dL [facility] Creatinine, Serum 2.00(H) 0.5 - 1.4 mg/dL [facility] Estimated Glomerular Filt Rate 32 [facility] Comment:Chronic Kidney Disea se: Estimated GFR < 60 mL/min/[id number] Kidney Disease: Estimated GFR < 15 mL/min/1.73m2 Glucose 87 60 - 115 mg/dL [facility] Calcium 9.0 8.4 - 10.2 mg/dL [facility] Bilirubin, Total 0.9 0.0 - 1.0 mg/dL [facility] Aspartate Amino Transferase 24 5 - 37 U/L [facility] Alanine Aminotransferase 18 0 - 40 U/L [facility] Total Protein 6.5 6.5 - 8.0 g/dL [facility] Albumin Level 4.0 3.5 - 5.0 g/dL [facility] Alkaline Phosphatase 110 39 - 117 U/L [facility] Blood Venous blood specimen / Unknown 05/03/2025 8:16 AM EDT 05/03/2025 11:27 AM EDT us Pedro Julian MD LAB BLOOD ORDERABLES Final Result [facility] [address] [place], [place] [phone] * (ABNORMAL) PROTHROMBIN TIME WHOLE BLD POC (05/02/2025 1:28 PM EDT) Only the most recent of6 resultswithin the time period is included. Protime 28.8(H) 11.1 - 13.5 sec [facility] 05/02/2025 1:28 PM EDT 05/02/2025 2:25 PM EDT Generic External Data Provider LAB BLOOD ORDERAB LES Final Result Performing Organization Address City/[facility] Co de Phone Number [facility] [address] [place] [address] [phone] * (ABNORMAL) ~PT, ~INR - ANTI COAG CLINIC (05/02/2025 1:28 PM EDT) Only the most recent of6 resultswithin the time period is included. Prothrombin Time INR 2.4(H) 0.9 - 1.1 [facility] Comment:METER #: [id number] TERNATIONAL NORMALIZED RATIO (INR) REFERENCE RANGES Reference [...] 1:28 PM EDT 05/02/2025 2:25 PM EDT Generic External Data Provider LAB BLOOD ORDERAB LES Final Result Performing Organization Address [facility] Co de Phone Number [facility] [address] [place] [address] [phone] * XR Lumbar Spine 2-3 Views (04/17/2025 1:24 PM EDT) Anatomical Region Laterality Modality Spine, L-spine Radiographic Micaela ging 04/17/2025 1:24 PM EDT Narrative 04/17/2025 2:57 PM EDT [address] [address] XRay Report Signed Patient: Jamie Carpio MR#: [id number] : 1945 Acct:[id number] Age/Sex: 80 / M ADM Date: 04/17/25 Loc: HO.HHCX Attending Dr: Pedro Webber MD Ordering Physician: Pedro Webber MD Date of Service: 04/17/25 Procedure(s): XR lumbar spine 2-3V Accession Number(s): [id number] cc: Pedro Webber MD EXAMINATION: XR LUMBOSACRAL [...] Zay Molina MD 04/17/2025 02:54 PM EDT Dictated By: Zay Molina MD Signed By: <Electronically signed by Zay Molina MD in OV> 04/17/25 1454 DD/ 1324 TD/TT: 04/17/25 1400 Systems Engineer: Procedure Note Donotuseinterpreter, Image - 04/17/[address] [address] XRay Report Signed Patient: Rik Carpio#: [id number] : 6Acct:[id number] Age/Sex: 80 / MADM Date: 04/17/25 Loc: HO.HHCX Attending Dr: Pedro Webber MD Ordering Physician: Pedro Webber MD Date of Service: 04/17/25 Procedure(s): XR lumbar spine 2-3V Accession Number(s): [id number] cc: Pedro Webber MD EXAMINATION: XR LUMBOSACRAL [...] Zay Molina MD 04/17/2025 02:54 PM EDT Dictated By: Zay Molina MD Signed By: <Electronically signed by Zay Molina MD in OV> 04/17/25 1454 DD/ 1324 TD/TT: 04/17/25 1400 Systems Engineer: us Pedro Julian MD IMG XR PROCEDURES Fin al Result * Urinalysis with Reflex to Microscopic (03/13/2025 2:16 PM EDT) Color Urine Yellow [facility] Appearance Urine Clear [facility] PH 5.0 5.0 - 9.0 [facility] Glucose Urine UA Negative Negative mg/dL [facility] Urine Blood Negative Negative [facility] Specific Brinson - Urine 1.010 1.005 - 1.025 [facility] Urine Protein Negative Neg-Trace mg/dL [facility] Urine Ketones Negative Negative mg/dL [facility] Nitrite Urine Negative Negative [facility] Leukocyte Esterase Urine Negative Negative [facility] 03/13/2025 2:16 PM EDT 03/13/2025 3:07 PM EDT Generic External Data Provider LAB URINE ORDERAB LES Final Result Performing Organization Address City/[facility]/ZIP Co de Phone Number [facility] [address] [place] [phone] * Culture, Urine, Routine (03/13/2025 2:16 PM EDT) Urine Urine specimen obtained by clean catch procedure / Unknown 03/13/2025 2:16 PM EDT 03/13/2025 3:07 PM EDT Comment:UACC Narrative [facility] - 03/14/2025 12:57 PM EDT Urine Culture Report Result Urine Culture < 10,000 cfu/ml Specimen Source: Urine clean catch Generic External Data Provider LAB MICROBIOLOGY - GENERAL ORDERABLES Final Result Performing Organization Address City/[facility]/ZIP Co de Phone Number [facility] [address] [place] [phone] * (ABNORMAL) Prothrombin Time-INR (02/27/2025 1:31 PM EDT) Prothrombin Time 86.4(H) 10.9 - 12.4 SEC [facility] INTERNATIONAL NORM RATIO 7.4(HH) 0.9 - 1.1 [facility] Comment:RESULTS OF INR BURGOS D TO [...] Provider LAB BLOOD ORDERAB LES Final Result [facility] [address] [place] [phone] * (ABNORMAL) Urinalysis, Complete, with Reflex to Culture (02/22/2025 9:20 AM EDT) Color Urine Dark Yellow [facility] Appearance Urine Turbid [facility] PH 5.0 5.0 - 9.0 [facility] Glucose Urine UA Negative Negative mg/dL [facility] Urine Blood Negative Negative [facility] Specific Brinson - Urine 1.025 1.005 - 1.025 [facility] Urine Protein 30 (1+)(A) Neg-Trace mg/dL [facility] Urine Ketones 15 Negative mg/dL [facility] Nitrite Urine Negative Negative [facility] Leukocyte Esterase Urine Trace(A) Negative [facility] RBC Urine 0-2 0 - 2 /HPF [facility] Urine WBC 0-5 0 - 5 /HPF [facility] Urine Squamous Epithelial Cell 3-5 0 - 2 /HPF [facility] CALCIUM OXALATE CRYSTAL, UR Present [facility] Urine Bacteria None Seen None Seen [facility] Hyaline Casts, Urine 3-5 0 - 2 /LPF [facility] GRANULAR CASTS (#/HPF) IN URINE Present [facility] Waxy Casts Present [facility] Urine 02/22/2025 9:20 AM EDT 02/22/2025 11:25 AM EDT Narrative [facility] - 02/22/2025 12:09 PM EDT Urine, Clean Catch us Pedro Julian MD LAB URINE ORDERABLES Final Result Performing Organization Address City/State/[facility] Co de Phone Number [facility] [address] [place] [phone] * US Scrotum (02/19/2025 3:57 PM EDT) Anatomical Region Laterality Modality Body Ultrasound 02/19/2025 3:57 PM EDT Narrative 02/19/2025 4:56 PM EDT [address] [address] Ultrasound Report Signed Patient: Jamie Carpio MR#: [id number] : 1945 Acct:[id number] Age/Sex: 79 / M ADM Date: 02/19/25 Loc: .US Attending Dr: Niko Salamanca MD Ordering Physician: Pedro Webber MD Date of Service: 02/19/25 Procedure(s): US scrotum Accession Number(s): [id number] cc: Pedro Webber MD EXAMINATION: US SCROTUM [...] 02/19/25 1653 DD/ 1557 TD/TT: 02/19/25 1613 Systems Engineer: Procedure Note Donotuseinterpreter, Image - 02/19/2025 [place] [address] Ultrasound Report Signed Patient: Rik Carpio#: [id number] : 6Acct:[id number] Age/Sex: 79 / MADM Date: 02/19/25 Loc: HO.US Attending Dr: Niko Salamanca MD Ordering Physician: Pedro Webber MD Date of Service: 02/19/25 Procedure(s): US scrotum Accession Number(s): [id number] cc: Pedro Webber MD EXAMINATION: US SCROTUM [...] 02/19/25 1653 DD/ 1557 TD/TT: 02/19/25 1613 Systems Engineer: us Pedro Julian MD IMG US PROCEDURES Ortiz david Result - Final * US RENAL BI (02/19/2025 3:38 PM EDT) Anatomical Region Laterality Modality Abdomen Ultrasound 02/19/2025 3:38 PM EDT Narrative 02/19/2025 4:52 PM EDT [address] [address] Ultrasound Report Signed Patient: Jamie Carpio MR#: [id number] : 1945 Acct:[id number] Age/Sex: 79 / M ADM Date: 02/19/25 Loc: HO.US Attending Dr: Niko Salamanca MD Ordering Physician: Niko Salamanca MD Date of Service: 02/19/25 Procedure(s): US renal BI Accession Number(s): [id number] cc: Niko Salamanca MD; Pedro Webber MD [...] 1650 DD/ 1538 TD/TT: 02/19/25 1548 Systems Engineer: [facility] Procedure Note Donotuseinterpreter, Image - 02/19/[address] [address] Ultrasound Report Signed Patient: Rik Carpio#: [id number] : 6Acct:[id number] Age/Sex: 79 / MADM Date: 02/19/25 Loc: HO.US Attending Dr: Niko Salamanca MD Ordering Physician: Niko Salamanca MD Date of Service: 02/19/25 Procedure(s): US renal BI Accession Number(s): [id number] cc: Niko Salamanca MD; Pedro Webber MD [...] 1650 DD/ 1538 TD/TT: 02/19/25 1548 Systems Engineer: [place] us [facility] External Provider IMG US PROCEDURES Edited Result - Final * (ABNORMAL) Lipid Panel, Standard (01/16/2025 9:13 AM EDT) Triglycerides 40 <150 mg/dL [facility] Comment:Desirable Triglyceri de: less than 150 mg/dLBorderline High Triglyceride 150-199 mg/dLHigh Triglyceride: 200-499 mg/dLVery High Triglyceride: greater than or equal to 5OO mg/dL Cholesterol 93 <200 mg/dL [facility] Comment:Desirable Cholestero l: less than 200 mg/dLBorderline High Cholesterol: 200-239 mg/dLHigh Cholesterol: greater than 239 mg/dL LDL Cholesterol Calculated 58 <100 mg/dL [facility] Comment:Desirable LDL: less than 100 mg/dLNear Optimal/Above Optimal LDL: 110- 129 mg/dLBorderline High LDL: 130-159 mg/dLHigh LDL: 160-189 mg/dLVery High LDL: greater than or equal to 190 mg/dL HDL Cholesterol 27(L) >40 mg/dL [facility] Comment:Desirable HDL: great er than 40 mg/dL Note: This HDL assay may give artificially low results in patients with liver disease. Blood Venous blood specimen / Unknown 01/16/2025 9:13 AM EDT 01/16/2025 11:29 AM EDT Pedro Julian MD LAB BLOOD ORDERABLES Final Result [facility] [address] [place] [phone] * BI Mammogram Diagnostic Tomosynthesis Bilateral (04/11/2024 3:15 PM EDT) Anatomical Region Laterality Modality Breast Bilateral Mammography 04/11/2024 3:15 PM EDT Narrative 04/11/2024 4:59 PM EDT [facility] [address] [place] [address] Mammography Report Signed Patient: Jamie Carpio MR#: [id number] : 1945 Acct:[id number] Age/Sex: 79 / M ADM Date: 04/11/24 Loc: ALVINA Attending Dr: Pedro Webber MD Ordering Physician: Pedro Webber MD Resu lts: 2Benign Findings Date of Service: 04/11/24 Follow Up: 1 Year From [facility] Mammogram Procedure(s): MM tomosynthesis diagnostic BI Accession Number(s): [id number] cc: Pedro Webber MD EXAMINATION: MM DIAGNOSTIC [...] OV> 04/11/24 1654 DD/ 1515 TD/TT: Systems Engineer: Procedure Note Donotuseinterpreter, Image - 04/11/2024 [facility] [address] [place], [place] [address] Mammography Report Signed Patient: Rik Carpio#: [id number] : 6Acct:[id number] Age/Sex: 79 / MADM Date: 04/11/24 Loc: HO.MAMMO Attending Dr: Pdero Webber MD Ordering Physician: Pedro Webber MDResu lts: 2Benign Findings Date of Service: 04/11/24Follow Up: 1 Year From [facility] Mammogram Procedure(s): MM tomosynthesis diagnostic BI Accession Number(s): [id number] cc: Pedro Webber MD EXAMINATION: MM DIAGNOSTIC [...] OV> 04/11/24 1654 DD/ 1515 TD/TT: Systems Engineer: us Pedro Julian MD IMG BI PROCEDURES Fin al Result * HEPATITIS C AB W/REFL TO HCV RNA, QN, PCR (12/24/2021 8:24 AM EST) HEPATITIS C ANTIBODY NON-REACT SIL NON-REACT SIL [facility] INDEX 0.01 <1.00 [facility] Comment: HCV antibody was non-reactive. There is no laboratory evidence of HCV infection. In most cases, no further action is required. However, if recent HCV exposure is suspected, a test for HCV RNA (test code 38278) is suggested. For additional information please refer to http://education.[employer]/faq/OSU44l4 (This link is being provided for informational/ educational purposes only.) 12/24/2021 8:24 AM EST us Pedro Julian MD HISTORICAL/NON ORDERA BLE LABS Final Result [facility] [address] from Last 3 Months or Most Recently Relevant to Health Maintenance Insurance [facility] [employer] (O D-SNP) [place] [id number] Care Teams Hand Roller Relationship Specialty Start Date End Date Pedro Pulliam MD [address] [place] [phone] PCP - General Internal Medicine 09/10/14 Niko Salamanca MD [address] [place] [address] Drive [address] [place] [address] Nephrology 01/16/25
--- OUTSIDE RECORDS SUMMARY | 2025-05-14 10:21 | XMS_ITS | Clinical Summary ---
Author Organization [facility] Facility Address [address] [place] [address] Care Team Providers Care Lasting Machine Operator Bed Name Role Phone Pedro Sonw MD Primary Care Provider Unav ailable Family [...] of 2 - PCV) 1964 Influenza Vaccine (#1) 2025 09/23/2016 Hepatitis B Vaccine Aged Out No longe r eligible based on patient's age to complete this topic Care Teams Lasting Machine Operator Bed Relationship Specialty Start Date End Date Pedro Snow MD PCP - General 11/18/20
--- OUTSIDE RECORDS SUMMARY | 2025-05-14 10:21 | XMS_ITS | Clinical Summary ---
Author Organization [facility] Address [address] [place] [address] Care Team Providers Care Intermediate School Teacher Name Role Phone Unavailable Primary Care Provider [...] Documents on File Type Date Recorded Patient Caustic Loader Expl anation Health Care Decision (hx) 01/10/2020 AD PHLILIP DIRECTIVE
--- OUTSIDE RECORDS SUMMARY | 2025-05-14 10:21 | XMS_ITS | Patient Health Record ---
Author Organization [facility] Address [address] [place] [address] Care Team Providers Care Tester Operator Name Role Phone Gwendolyn Julian MD, Pedro Primary Care Provide r Unavailable Favian Hardin Jr Unavailable Reason For Referral No Information Plan Of Treatment No Information Insurance Providers Payer Name Payer Address Payer Phone Subscriber Number Group Number Insured Name Patient Relationship to Insured Coverage Start Date Coverage End Date MEDIC[facility] OF [facility] [address] [facility] [place] [id number] LILY RINCON Self - patient is the insured
== END 2025-05-14 10:13 | disposition home or self-care (01) ==
LOC: HO.HGI 09:47
PROVIDERS: PCP Internal Medicine; Visit Provider Internal Medicine Gastroenterology
DX: D50.9 Iron deficiency anemia, unspecified (principal)
CPT/HCPCS: 99213

== ENCOUNTER → 2025-05-14 09:47 | Outpatient (BNVA) | payer OTHER, SELFPAY | PROVIDERS: PCP Internal Medicine; Visit Provider Internal Medicine Gastroenterology | DX: D50.9 Iron deficiency anemia, unspecified (principal) | CPT/HCPCS: 99212 ==

== ENCOUNTER 2025-05-15 12:49 | Outpatient (AMB) | payer OTHER, SELFPAY ==
--- NOTE | 2025-05-15 12:57 | MHC.OFFVIS ---
Vital Signs 05/15/25 13:06 Height 5 ft 9 in Weight 176 lb 2.389 oz BMI 26.0 BP 94/56 L Blood Pressure Location Rt brachial Position Sitting Pulse 58 Pulse Source Pulse Oximeter Pulse Oximetry (%) 95 Oxygen Delivery Method Room Air Intake Visit Reasons: Gynecomastia Intake Note: New patient externally referred by PCP for Gynecomastia. Floriculture Professor Required: Yes Floriculture Professor Language: Hand Glass Cutter Services: Floriculture Professor Present Floriculture Professor Name: [facility]- Jail[place] Information Interpreted: non-clinical & clinical Accompanied by: Self / Same As Patient Allergies No Known Allergies (No Known Allergies*) Allergy (Verified 05/15/25 13:07) HPI Comments Details: 80-year-old male sent to endocrinology for evaluation of gynecomastia. Patient had extensive workup by primary care provider which included mid normal testosterone and free testosterone levels with elevation and gonadotropins. He also had an elevated estradiol but had testicular ultrasound which showed the absence of any masses. He also had bilateral breast ultrasounds which showed the absence of any masses but moderate to severe gynecomastia. He sees Urology for BPH and has some difficulty with urination stream. The patient is a 80-year-old male presenting with gynecomastia. He has experienced breast development for many years without significant discomfort or tenderness. There is no history of breast discharge or significant tenderness. The patient has elevated estrogen levels, identified in previous evaluations. He denies substance use such as marijuana or alcohol that could worsen the condition. An ultrasound of the testes showed normal results, although the testes were small. [facility] Medical History (Updated 05/15/25 @ 13:34 by Oneal Chaves MD) Gynecomastia Atrial fibrillation Tubular adenoma Dyslipidemia HTN (hypertension) Surgical History Hx of bilateral cataract extraction Hx of colonoscopy History of esophagogastroduodenoscopy (EGD) Family History Father Throat cancer Brother Prostate cancer Asthma Sister Hypertension Diabetes Mother Hypertension Social History Household Members: None Housing: Apartment Are you a primary laboratory animal care veterinarian to a significant other at home: No Do you presently have visiting nurse or other home services: Yes (every 6 months) Alcohol intake: former Patient Tobacco Use Status: Former Tobacco user Tobacco use type: Cigarette service: No Current occupational status: retired Physical Exam Vital Signs: Last Vital Signs Pulse 58 05/15/25 13:06 BP 94/56 L 05/15/25 13:06 Pulse Ox 95 05/15/25 13:06 Oxygen Delivery Method Room Air 05/15/25 13:06 BMI result Body Mass Index 26.0 Const Other: Absence of eunichoidal proprtions. Examination of the chest reveals small amount of breast tissue bilaterally. There was a absence of tenderness or discharge . Examination of genitalia reveals small soft testes without the presence of any mass Assessment & Plan Assessment & Plan (1) Gynecomastia: Code(s): N62 - Hypertrophy of breast Category: Medical Plan: This is a 80-year-old male with a history of bilateral gynecomastia with what appears to be compensated primary hypogonadism? Undiagnosed Klinefelter's with low to mid normal testosterone level and slightly elevated estrogen levels elevated gonadotropin. Workup for gynecomastia was negative including testicular ultrasound. CKD could be contributing factor as well. 1. Gynecomastia The patient has long-standing gynecomastia with elevated estrogen levels. The condition is not currently bothersome, and the patient denies substance use that could worsen it. An ultrasound showed normal testes with small size. Monitoring is recommended, with tamoxifen as a potential treatment if symptoms worsen. I discussed with the patient that gynecomastia is often not a serious condition and can occur due to hormonal imbalances, such as elevated estrogen levels. We reviewed that his ultrasound showed normal testes, albeit small, and that there is no indication of a testicular tumor. I explained that if the gynecomastia becomes bothersome, tamoxifen could be considered to block estrogen conversion, although it is not necessary at this time. - Monitor breast development for any changes or discomfort. - Return to primary care provider for regular follow-up. - Consider discussing tamoxifen with your doctor if symptoms worsen. T The patient had an opportunity to ask questions regarding treatment plan. The patient expressed understanding and agreement with the above treatment plan. Patient was informed and verbally consented to the use of an ambient scribe for clinic note documentation during this visit. Coding Level of Care Code New Pt Level 4 (11549) Diagnoses Gynecomastia N62
[2025-05-15 13:06] VITALS: BP 94/56; PULSE 58; O2SAT 95; BMI 26.0
--- OUTSIDE RECORDS SUMMARY | 2025-05-15 13:33 | XMS_ITS | Clinical Summary ---
Author Organization [employer] Address [address] [facility] [address] [place] [address] Care Team Providers Care Rate Quoting Operator Name Role Phone Pedro Pulliam MD Primary Care Provide r Niko Salamanca MD Unavailable [phone] Allergies No known active allergies Medications [...] pt currently undergoing PT with good results. [facility] care 09/23/2023 Assessment & Plan (10/17/2024 1:55 [...] showed diverticulosis only by Dr conn[facility] [place] [facility] Mixed hyperlipidemia 08/13/2015 09/15/2023 Assessment & Plan [...] past by his vascular surgeon at [facility] (Dr Lind) whose recommendation was conservative treatment, he saw NO role for any type of surgical intervention. He recommended to repeat the scan in 1 year and continue to take Asa 81 mg po daily. Pt was last seen by his wax pumper at [facility] [...] and lasix 20 mg daily prescribed by Paperhanger Supervisor. Pt is off Lisinopril 40 mg po daily (stopped by Product Marketing Analyst 04/01) I had recently lowered his Lasix [...] and lasix 20 mg daily prescribed by Paperhanger Supervisor. I had recently lowered his Lasix due [...] and lasix 20 mg daily prescribed by Paperhanger Supervisor. I had recently lowered his Lasix due [...] Am and 20 mg PM prescribed by Paperhanger Supervisor. I had recently lowered his Lasix due [...] Am and 20 mg PM prescribed by Paperhanger Supervisor. Pt developed some bilateral ankle edema due [...] Furosemide 20 mg po BID prescribed by Paperhanger Supervisor. Pt developed some bilateral ankle edema due [...] Furosemide 20 mg po BID prescribed by Paperhanger Supervisor. Pt developed some bilateral ankle edema due [...] impression. Plan: Breast center referral at [facility] Assessment & Plan (02/01/2024 1:36 PM EDT): [...] Department Care Team Description 05/03/2025 Results Follow-Up [facility] [address] [place] [address] Pedro Pulliam MD Comprehensive Metabolic Panel 05/02/2025 Orders Only GENERIC EXTERNAL DATA DEPARTMENT Provider, Generic External Data 04/17/2025 1:15 PM EDT Office Visit [facility] [address] [place] [address] Pedro uPlliam MD Stage 3b chronic kidney disease (CMS/HCC) (Primary Dx); Longstanding persistent atrial fibrillation (CMS/HCC); Benign prostatic hyperplasia with urinary frequency; Gynecomastia; Primary hypertension; Sciatica of left side 04/17/2025 Travel 04/16/2025 Telephone [facility] [address] [place] [address] Pedro Pulliam MD Chart Prep 04/15/2025 Refill [facility] [address] [place] [address] Pedro Pulliam MD Primary hypertension 04/11/2025 Orders Only GENERIC EXTERNAL DATA DEPARTMENT Provider, Generic External Data 04/09/2025 Refill [facility] [address] [place] [address] Pedro Pulliam MD Iron deficiency; Mixed hyperlipidemia; Primary hypertension 04/04/2025 Orders Only GENERIC EXTERNAL DATA DEPARTMENT Provider, Generic External Data 03/28/2025 10:20 AM EDT Office Visit [facility] [address] [place] [address] Imani Lee MD Impacted cerumen of left ear (Primary Dx) 03/28/2025 Telephone [facility] [address] [place] [address] Pedro Pulliam MD Medication Request 03/13/2025 Orders Only GENERIC EXTERNAL DATA DEPARTMENT Provider, Generic External Data 03/01/2025 Orders Only GENERIC EXTERNAL DATA DEPARTMENT Provider, Generic External Data 02/27/2025 Telephone [facility] [address] [place] [address] Pedro Pulliam MD Critical lab 02/27/2025 Orders Only GENERIC EXTERNAL DATA DEPARTMENT Provider, Generic External Data 02/21/[address] [address] Justa Christianson RN Results; Lab Orders; Referral 02/20/2025 Orders Only [address] [address] Pedro Pulliam MD Epididymoorchitis (Primary Dx) from Last 3 Months Immunizations Immunization Administration [...] Description 07/17/2025 2:00 PM EDT Office Visit [facility] [address], [place] [phone] Pedro Pulliam MD [address] [place], [place] [phone] Health Maintenance Due Date Last Done Comments [...] EDT) Sodium 140 135 - 145 mmol/L [facility] Potassium 4.1 3.3 - 5.1 mmol/L [facility] Chloride 111(H) 96 - 108 mmol/L [facility] Carbon Dioxide 22 22 - 29 mmol/L [facility] Anion Gap 11(L) 12 - 20 [facility] Urea Nitrogen (BUN) 21(H) 9 - 16 mg/dL [facility] Creatinine, Serum 2.00(H) 0.5 - 1.4 mg/dL [facility] Estimated Glomerular Filt Rate 32 [facility] Comment:Chronic Kidney Disea se: Estimated GFR < 60 mL/min/1.71a3Drnwev Kidney Disease: Estimated GFR < 15 mL/min/1.73m2 Glucose 87 60 - 115 mg/dL [facility] Calcium 9.0 8.4 - 10.2 mg/dL [facility] Bilirubin, Total 0.9 0.0 - 1.0 mg/dL [facility] Aspartate Amino Transferase 24 5 - 37 U/L [facility] Alanine Aminotransferase 18 0 - 40 U/L [facility] Total Protein 6.5 6.5 - 8.0 g/dL [facility] Albumin Level 4.0 3.5 - 5.0 g/dL [facility] Alkaline Phosphatase 110 39 - 117 U/L [facility] Blood Venous blood specimen / Unknown 05/03/2025 8:16 AM EDT 05/03/2025 11:27 AM EDT us Pedro Julian MD LAB BLOOD ORDERABLES Final Result [facility] [address] [place] [address] [phone] * (ABNORMAL) PROTHROMBIN TIME WHOLE BLD POC (05/02/2025 1:28 PM EDT) Only the most recent of6 resultswithin the time period is included. Protime 28.8(H) 11.1 - 13.5 sec [facility] 05/02/2025 1:28 PM EDT 05/02/2025 2:25 PM EDT Generic External Data Provider LAB BLOOD ORDERAB LES Final Result Performing Organization Address [facility] Co de Phone Number [facility] [address] [place] [address] [phone] * (ABNORMAL) ~PT, ~INR - ANTI COAG CLINIC (05/02/2025 1:28 PM EDT) Only the most recent of6 resultswithin the time period is included. Prothrombin Time INR 2.4(H) 0.9 - 1.1 [facility] Comment:METER #: [id number] TERNATIONAL NORMALIZED RATIO (INR) REFERENCE RANGES Reference [...] ORDERAB LES Final Result Performing Organization Address City/[facility] Co de Phone Number [facility] [address] [place] [address] [phone] * XR Lumbar Spine 2-3 Views (04/17/2025 1:24 PM EDT) Anatomical Region Laterality Modality Spine, L-spine Radiographic Micaela ging 04/17/2025 1:24 PM EDT Narrative 04/17/2025 2:57 PM EDT [place] [address] XRay Report Signed Patient: Jamie Carpio MR#: [id number] : 1945 Acct:[id number] Age/Sex: 80 / M ADM Date: 04/17/25 Loc: HO.HHCX Attending Dr: Pedro Webber MD Ordering Physician: Pedro Webber MD Date of Service: 04/17/25 Procedure(s): XR lumbar spine 2-3V Accession Number(s): [id number] cc: Pedro Webber MD EXAMINATION: XR LUMBOSACRAL [...] 04/17/25 1454 DD/ 1324 TD/TT: 04/17/25 1400 Powerplant Operator: Procedure Note Donotuseinterpreter, Image - 04/17/[address] [place] [address] XRay Report Signed Patient: Rik Carpio#: [id number] : 6Acct:[id number] Age/Sex: 80 / MADM Date: 04/17/25 Loc: HO.HHCX Attending Dr: Pedro Webber MD Ordering Physician: Pedro Webber MD Date of Service: 04/17/25 Procedure(s): XR lumbar spine 2-3V Accession Number(s): [id number] cc: Pedro Webber MD EXAMINATION: XR LUMBOSACRAL [...] 04/17/25 1454 DD/ 1324 TD/TT: 04/17/25 1400 Powerplant Operator: us Pedro Julian MD IMG XR PROCEDURES Fin al Result * Urinalysis with Reflex to Microscopic (03/13/2025 2:16 PM EDT) Color Urine Yellow [facility] Appearance Urine Clear [facility] PH 5.0 5.0 - 9.0 [facility] Glucose Urine UA Negative Negative mg/dL [facility] Urine Blood Negative Negative [facility] Specific [place] - Urine 1.010 1.005 - 1.025 [facility] Urine Protein Negative Neg-Trace mg/dL [facility] Urine Ketones Negative Negative mg/dL [facility] Nitrite Urine Negative Negative [facility] Leukocyte Esterase Urine Negative Negative [facility] 03/13/2025 2:16 PM EDT 03/13/2025 3:07 PM EDT Generic External Data Provider LAB URINE ORDERAB LES Final Result Performing Organization Address [facility]/ZIP Co de Phone Number [facility] [address] [place] [address] [phone] * Culture, Urine, Routine (03/13/2025 2:16 PM EDT) Urine Urine specimen obtained by clean catch procedure / Unknown 03/13/2025 2:16 PM EDT 03/13/2025 3:07 PM EDT Comment:UACC Narrative [facility] - 03/14/2025 12:57 PM EDT Urine Culture Report Result Urine Culture < 10,000 cfu/ml Specimen Source: Urine clean catch Generic External Data Provider LAB MICROBIOLOGY - GENERAL ORDERABLES Final Result Performing Organization Address City/[facility]/ZIP Co de Phone Number [facility] [address] [place] [address] [phone] * (ABNORMAL) Prothrombin Time-INR (02/27/2025 1:31 PM EDT) Prothrombin Time 86.4(H) 10.9 - 12.4 SEC [facility] INTERNATIONAL NORM RATIO 7.4(HH) 0.9 - 1.1 [facility] Comment:RESULTS OF INR BURGOS D [...] Provider LAB BLOOD ORDERAB LES Final Result [facility] [address] [place] [address] [phone] * (ABNORMAL) Urinalysis, Complete, with Reflex to Culture (02/22/2025 9:20 AM EDT) Color Urine Dark Yellow [facility] Appearance Urine Turbid [facility] PH 5.0 5.0 - 9.0 [facility] Glucose Urine UA Negative Negative mg/dL [facility] Urine Blood Negative Negative [facility] Specific [place] - Urine 1.025 1.005 - 1.025 [facility] Urine Protein 30 (1+)(A) Neg-Trace mg/dL [facility] Urine Ketones 15 Negative mg/dL [facility] Nitrite Urine Negative Negative [facility] Leukocyte Esterase Urine Trace(A) Negative [facility] RBC Urine 0-2 0 - 2 /HPF [facility] Urine WBC 0-5 0 - 5 /HPF [facility] Urine Squamous Epithelial Cell 3-5 0 - 2 /HPF [facility] CALCIUM OXALATE CRYSTAL, UR Present [facility] Urine Bacteria None Seen None Seen [facility] Hyaline Casts, Urine 3-5 0 - 2 /LPF [facility] GRANULAR CASTS (#/HPF) IN URINE Present [facility] Waxy Casts Present [facility] Urine 02/22/2025 9:20 AM EDT 02/22/2025 11:25 AM EDT Narrative [facility] - 02/22/2025 12:09 PM EDT Urine, Clean Catch us Pedro Julian MD LAB URINE ORDERABLES Final Result Performing Organization Address City/State/[facility] Co de Phone Number [facility] [address] [place] [phone] * US Scrotum (02/19/2025 3:57 PM EDT) Anatomical Region Laterality Modality Body Ultrasound 02/19/2025 3:57 PM EDT Narrative 02/19/2025 4:56 PM EDT [address] [address] Ultrasound Report Signed Patient: Jamie Carpio MR#: [id number] : 1945 Acct:[id number] Age/Sex: 79 / M ADM Date: 02/19/25 Loc: HO.US Attending Dr: Niko Salamanca MD Ordering Physician: Pedro Webber MD Date of Service: 02/19/25 Procedure(s): US scrotum Accession Number(s): [id number] cc: Pedro Webber MD EXAMINATION: US SCROTUM [...] 02/19/25 1653 DD/ 1557 TD/TT: 02/19/25 1613 Powerplant Operator: Procedure Note Donotuseinterpreter, Image - 02/19/2025 [place] [address] Ultrasound Report Signed Patient: Rik Carpio#: [id number] : 6Acct:[id number] Age/Sex: 79 / MADM Date: 02/19/25 Loc: .US Attending Dr: Niko Salamanca MD Ordering Physician: Pedro Webber MD Date of Service: 02/19/25 Procedure(s): US scrotum Accession Number(s): [id number] cc: Pedro Webber MD EXAMINATION: US SCROTUM [...] 02/19/25 1653 DD/ 1557 TD/TT: 02/19/25 1613 Powerplant Operator: us Pedro Julian MD IMG US PROCEDURES Ortiz david Result - Final * US RENAL BI (02/19/2025 3:38 PM EDT) Anatomical Region Laterality Modality Abdomen Ultrasound 02/19/2025 3:38 PM EDT Narrative 02/19/2025 4:52 PM EDT [place] [address] Ultrasound Report Signed Patient: Jamie Carpio MR#: [id number] : 1945 Acct:[id number] Age/Sex: 79 / M ADM Date: 02/19/25 Loc: HO.US Attending Dr: Niko Salamanca MD Ordering Physician: Niko Salamanca MD Date of Service: 02/19/25 Procedure(s): US renal BI Accession Number(s): [id number] cc: Niko Salamanca MD; Pedro Webebr MD EXAMINATION: US RETROPERITONEAL LIMITED (RENAL ONLY) [...] 02/19/25 1650 DD/ 1538 TD/TT: 02/19/25 1548 Powerplant Operator: [facility] Procedure Note Donotuseinterpreter, Image - 02/19/[address] [address] Ultrasound Report Signed Patient: Rik Carpio#: [id number] : 6Acct:[id number] Age/Sex: 79 / MADM Date: 02/19/25 Loc: HO.US Attending Dr: Niko Salamanca MD Ordering Physician: Niko Salamanca MD Date of Service: 02/19/25 Procedure(s): US renal BI Accession Number(s): [id number] cc: Niko Salamanca MD; Pedro Webber MD [...] 02/19/25 1650 DD/ 1538 TD/TT: 02/19/25 1548 Powerplant Operator: [facility] External Provider IMG US PROCEDURES Edited Result - Final * (ABNORMAL) Lipid Panel, Standard (01/16/2025 9:13 AM EDT) Triglycerides 40 <150 mg/dL [facility] Comment:Desirable Triglyceri de: less than 150 mg/dLBorderline High Triglyceride 150-199 mg/dLHigh Triglyceride: 200-499 mg/dLVery High Triglyceride: greater than or equal to 5OO mg/dL Cholesterol 93 <200 mg/dL [facility] Comment:Desirable Cholestero l: less than 200 mg/dLBorderline High Cholesterol: 200-239 mg/dLHigh Cholesterol: greater than 239 mg/dL LDL Cholesterol Calculated 58 <100 mg/dL [facility] Comment:Desirable LDL: less than 100 mg/dLNear Optimal/Above Optimal LDL: 110- 129 mg/dLBorderline High LDL: 130-159 mg/dLHigh LDL: 160-189 mg/dLVery High LDL: greater than or equal to 190 mg/dL HDL Cholesterol 27(L) >40 mg/dL [facility] Comment:Desirable HDL: great er than 40 mg/dL Note: This HDL assay may give artificially low results in patients with liver disease. Blood Venous blood specimen / Unknown 01/16/2025 9:13 AM EDT 01/16/2025 11:29 AM EDT us Pedro Julian MD LAB BLOOD ORDERABLES Final Result [facility] [address] [place] [phone] * BI Mammogram Diagnostic Tomosynthesis Bilateral (04/11/2024 3:15 PM EDT) Anatomical Region Laterality Modality Breast Bilateral Mammography 04/11/2024 3:15 PM EDT Narrative 04/11/2024 4:59 PM EDT [facility] [address] [place] [address] [place] [address] Mammography Report Signed Patient: Jamie Carpio MR#: [id number] : 1945 Acct:[id number] Age/Sex: 79 / M ADM Date: 04/11/24 Loc: HO.MAMMO Attending Dr: Pedro Webber MD Ordering Physician: Pedro Webber MD Resu lts: 2Benign Findings Date of Service: 04/11/24 Follow Up: 1 Year From Orig inal Mammogram Procedure(s): MM tomosynthesis diagnostic BI Accession Number(s): [id number] cc: Pedro Webber MD EXAMINATION: MM DIAGNOSTIC [...] in OV> 04/11/24 1654 DD/ 1515 TD/TT: Powerplant Operator: Procedure Note Donotuseinterpreter, Image - 04/11/20[facility] [address] [place], [place] [address] Mammography Report Signed Patient: Rik Carpio#: [id number] : 6Acct:[id number] Age/Sex: 79 / MADM Date: 04/11/24 Loc: HO.MAMMO Attending Dr: Pedro Webber MD Ordering Physician: Pedro Webber MDResu lts: 2Benign Findings Date of Service: 04/11/24Follow Up: 1 Year From Orig ina Mammogram Procedure(s): MM tomosynthesis diagnostic BI Accession Number(s): [id number] cc: Pedro Webber MD EXAMINATION: MM DIAGNOSTIC [...] in OV> 04/11/24 1654 DD/ 1515 TD/TT: Powerplant Operator: Pedro Julian MD IMG BI PROCEDURES Fin al Result * HEPATITIS C AB W/REFL TO HCV RNA, QN, PCR (12/24/2021 8:24 AM EST) HEPATITIS C ANTIBODY NON-REACT SIL NON-REACT [facility] INDEX 0.01 <1.00 [facility] Comment: HCV antibody was non-reactive. There is no laboratory evidence of HCV infection. In most cases, no further action is required. However, if recent HCV exposure is suspected, a test for HCV RNA (test code 09428) is suggested. For additional information please refer to http://education.TYFFON.Copybar/faq/PRV05g4 (This link is being provided for informational/ educational purposes only.) 12/24/2021 8:24 AM EST us Pedro Julian MD HISTORICAL/NON ORDERA BLE LABS Final Result [facility] [address] from Last 3 Months or Most Recently Relevant to Health Maintenance Insurance [employer] [id number] Care Teams Rate Quoting Operator Relationship Specialty Start Date End Date Perdo Pulliam MD [address] [place] [phone] PCP - General Internal Medicine 09/10/14 Niko Salamanca MD [address] [place] [phone] Nephrology 01/16/25
--- OUTSIDE RECORDS SUMMARY | 2025-05-15 13:33 | XMS_ITS | Clinical Summary ---
Author Organization [employer] Facility Address [address] [address] Care Team Providers Care Foundry Process Engineer Name Role Phone Pedro Snow MD Primary [...] age to complete this topic Care Teams Foundry Process Engineer Relationship Specialty Start Date End Date Pedro Snow MD PCP - General 11/18/20
--- OUTSIDE RECORDS SUMMARY | 2025-05-15 13:33 | XMS_ITS | Patient Health Record ---
Author Organization [facility] Address [address] [place] [address] Care Team Providers Care Canal Equipment Maintenance Supervisor Name Role Phone Gwendolyn Julian MD, Pedro Primary Care Provide r Unavailable Favian Hardin Jr Unavailable Reason For Referral No Information Plan Of Treatment No Information Insurance Providers Payer Name Payer Address Payer Phone Subscriber Number Group Number Insured Name Patient Relationship to Insured Coverage Start Date Coverage End Date [facility]IC[facility] [address] [facility] [place] [id number] LILY RINCON Self - patient is the insured
--- OUTSIDE RECORDS SUMMARY | 2025-05-15 13:33 | XMS_ITS | Clinical Summary ---
Author Organization [facility] ity Address [address] [place] [address] Care Team Providers Care Corporate Development Officer Name Role Phone Unavailable Primary Care Provider [...] Documents on File Type Date Recorded Patient Acid Strength Inspector Expl anation Health Care Decision (hx) 01/10/2020 AD PHILLIP DIRECTIVE
== END 2025-05-15 14:33 | disposition home or self-care (01) ==
LOC: HO.ENCR 12:54
PROVIDERS: Visit Provider Internal Medicine Endocrinology, Diabetes & Metabolism
DX: N62 Hypertrophy of breast (principal)
CPT/HCPCS: 99204

== ENCOUNTER → 2025-05-15 12:49 | Outpatient (BNVA) | payer OTHER, SELFPAY | PROVIDERS: Visit Provider Internal Medicine Endocrinology, Diabetes & Metabolism | DX: N62 Hypertrophy of breast (principal) | CPT/HCPCS: 99202 ==

== ENCOUNTER 2025-05-30 13:02 | Outpatient (AMB) | payer OTHER, SELFPAY ==
--- NOTE | 2025-05-30 13:09 | MHC.OFFVISCO ---
Intake Intake Visit Reasons: Anticoagulation Allergies No Known Allergies (No Known Allergies*) Allergy (Verified 05/30/25 13:05) Medication List - Last Reconciled 05/30/25 by Joyce Garcia RN amlodipine 5 mg PO DAILY atorvastatin 80 mg PO BEDTIME carbamide peroxide 6.5% (Ear Wax Removal Drops) 5 drps otic (ear) left BID cholecalciferol (vitamin D3) 25 mcg PO DAILY dorzolamide-timolol 22.3-6.8 mg/mL 22.3 drps ophthalmic (eye) BID ferrous sulfate (FeroSul) 1 tab PO DAILY furosemide 40 mg PO DAILY iron sucrose (Venofer) 200 mg IV Q3D octreotide acetate (Mycapssa) 20 mg PO DAILY Held on 11/20/22. Instructions: rejected by insurance terazosin 5 mg PO BEDTIME 90 days travoprost 0.004% 1 drp ophthalmic (eye) BEDTIME warfarin 5 mg See Protocol PO DAILY Nursing Note INR: 2.3- in therapeutic range of 2-3 Medications and supplements reviewed- no changes No changes in health, diet, medications, or supplements, Denies any signs and symptoms of bleeding or bruising or clotting. Bleeding, bruising, clotting discussed Nutritional guidance given Dose: 2.5mg x 2, 5mg x 5 F/U INR: 4 weeks Patient verbalizes understanding of instructions given Anti-Coag Initial Assessment Social Hx Patient Tobacco Use Status: Former Tobacco user Tobacco use type: Cigarette alcohol intake: former Alcohol intake frequency: does not drink Coding Level of Care Code Est Patient Level 1 Diagnoses Current use of anticoagulant therapy Z79.01 Assessment & Plan Assessment & Plan (1) Current use of anticoagulant therapy: Comment: warfarin-Otto Margarette- need to confirm ok to stop 5 days prior to colonoscopy-unable to send note through expanse Patient aware this must be confirmed, there were no major barriers to understanding identified Code(s): Z79.01 - senior planner (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
[2025-05-30 13:10] LABS: Prothrombin Time Whole Bld POC 28.1 sec (11.1-13.5); ~PT, ~INR - Anti Coag Clinic 2.3 (0.9-1.1)
--- OUTSIDE RECORDS SUMMARY | 2025-05-30 13:30 | XMS_ITS | Patient Health Record ---
Author Organization [facility] Address [address] [place] [address] Care Team Providers Care Skilled Nursing Facility Counselor Name Role Phone Gwendolyn Julian MD, Pedro Primary Care Provide r Unavailable Favian Hardin Jr Unavailable Reason For Referral No Information Plan Of Treatment No Information Insurance Providers Payer Name Payer Address Payer Phone Subscriber Number Group Number Insured Name Patient Relationship to Insured Coverage Start Date Coverage End Date MEDICARE OF [facility] [address] [facility] [place] [id number] [phone] [id number] LILY RINCON Self - patient is the insured
--- OUTSIDE RECORDS SUMMARY | 2025-05-30 13:30 | XMS_ITS | Clinical Summary ---
Author Organization [facility] Facility Address [address] [address] Care Team Providers Care Sustainability Project Manager Name Role Phone Pedro Snow MD [...] age to complete this topic Care Teams Sustainability Project Manager Relationship Specialty Start Date End Date Pedro Snow MD PCP - General 11/18/20
--- OUTSIDE RECORDS SUMMARY | 2025-05-30 13:30 | XMS_ITS | Clinical Summary ---
Author Organization [facility] ity Address [address] [place] [address] Care Team Providers Care Embroiderer Name Role Phone Unavailable Primary Care Provider [...] Vaccine (1 - 2023-2 5 season) 2024 Depression Screening 11/08/2024 Influenza Vaccine (#1) 2025 HIB Vaccines Aged [...] Documents on File Type Date Recorded Patient Car Storer Expl anation Health Care Decision (hx) 01/10/2020 AD PHILLIP DIRECTIVE
--- OUTSIDE RECORDS SUMMARY | 2025-05-30 13:30 | XMS_ITS | Clinical Summary ---
Author Organization [employer] Address [address] [facility] [address] [place] [address] Care Team Providers Care Hot Metal Mixer Operator Name Role Phone Pedro Pulliam MD Primary Care Provide r Niko Salamanca MD Unavailable [phone] Allergies No known active allergies Medications Aspirin Low Dose 81 MG EC tabletIndications :Primary hypertension TAKE 1 TABLET BY MOUTH EVERY DAY 30 tablet 6 11/30/19 24 Active warfarin (Coumadin) 5 MG tabletIndications :Atrial fibrillation, unspecified type (CMS/HCC) TAKE 1 TABLET BY MOUTH EVERY DAY DIRECTED BY [facility]ADIN CLINIC 90 tablet 02/10/20 24 Active furosemide (Lasix) 20 MG tabletIndications :Stage 3 chronic kidney disease, unspecified whether stage 3a or 3b CKD (CMS/HCC),Primary hypertension,Nonr heumatic tricuspid valve regurgitation 1 tab daily 60 tablet 08/22/20 24 Active carbamide peroxide (Debrox) 6.5 % otic [...] DAILY 90 tablet 1 04/10/20 25 Active cholecalciferol (Vitamin D-3) 25 MCG tabletIndications :Vitamin D deficiency TAKE 1 TABLET BY MOUTH EVERY DAY 90 tablet 1 05/17/20 25 Active warfarin (Coumadin) 5 MG tabletIndications :Atrial fibrillation, unspecified type (CMS/HCC) TAKE 1 TABLET BY MOUTH EVERY DAY DIRECTED BY COUMADIN CLINIC 90 tablet 3 05/22/20 25 Active warfarin (Coumadin) 5 MG tabletIndications :Atrial fibrillation, unspecified type (CMS/HCC) TAKE 1 TABLET BY MOUTH EVERY DAY DIRECTED BY COUMADIN CLINIC 90 tablet 2 07/07/20 24 2024 Discontinued cholecalciferol (Vitamin D-3) 25 MCG tabletIndications :Vitamin D deficiency TAKE 1 TABLET BY MOUTH ONCE DAILY 90 tablet 02/13/20 25 2024 Discontinued Active Problems Problem Noted [...] currently undergoing PT with good results. [facility] health care 09/23/2023 Assessment & Plan (10/17/2024 [...] showed diverticulosis only by Dr connors at [facility] Mixed hyperlipidemia 08/13/2015 09/15/2023 Assessment & Plan [...] past by his vascular surgeon at [facility] (Dr Lind) whose recommendation was conservative treatment, he saw NO role for any type of surgical intervention. He recommended to repeat the scan in 1 year and continue to take Asa 81 mg po daily. Pt was last seen by his taxation agent at [facility] 09/14/2023 recommended repeat US and ECHO and 6 month follow up He is on Aspirin started by their office Last Carotid US on record from 02/11/2023 Hypertension 04/21/2012 09/15/2023 Assessment & Plan (04/17/2025 1:40 PM EDT): Pt here for a f/u BP stable He is on a regimen of: Norvasc 5 mg daily, and lasix 20 mg daily prescribed by Back Padder. Pt is off Lisinopril 40 mg po daily (stopped by Mechanotherapist 04/01) I had recently lowered his Lasix [...] and lasix 20 mg daily prescribed by Back Padder. I had recently lowered his Lasix due [...] and lasix 20 mg daily prescribed by Back Padder. I had recently lowered his Lasix due [...] Am and 20 mg PM prescribed by Back Padder. I had recently lowered his Lasix due [...] Am and 20 mg PM prescribed by Back Padder. Pt developed some bilateral ankle edema due [...] Furosemide 20 mg po BID prescribed by Back Padder. Pt developed some bilateral ankle edema due [...] Furosemide 20 mg po BID prescribed by Back Padder. Pt developed some bilateral ankle edema due [...] impression. Plan: Breast center referral at [facility] Assessment & Plan (02/01/2024 1:36 [...] Encounters Date Type Department Care Team Description 05/30/2025 Orders Only GENERIC EXTERNAL DATA DEPARTMENT Provider, Generic External Data 05/23/[address] [facility] [address] [facility] [place] [address] Pedro Pulliam MD Medication Question 05/21/[address] [facility] [address] [facility] [place] [address] Avis Koenig MD Atrial fibrillation, unspecified type (CMS/HCC) 05/17/[address] [facility] [address] [place] [address] Avis Koenig MD Vitamin D deficiency 05/03/2025 Results Follow-Up [facility] [address] [place] [address] Pedro Pulliam MD Comprehensive Metabolic Panel 05/02/2025 Orders Only GENERIC EXTERNAL DATA DEPARTMENT Provider, Generic External Data 04/17/2025 1:15 PM EDT Office Visit [facility] [address] [place] [address] Pedro Pulliam MD Stage 3b chronic kidney disease (CMS/HCC) (Primary Dx); Longstanding persistent atrial fibrillation (CMS/HCC); Benign prostatic hyperplasia with urinary frequency; Gynecomastia; Primary hypertension; Sciatica of left side 04/17/2025 Travel 04/16/[address] [facility] [address] [place] [address] Pedro Pulliam MD Chart Prep 04/15/[address] [facility] [address] [place] [address] Pedro Pulliam MD Primary hypertension 04/11/2025 Orders Only GENERIC EXTERNAL DATA DEPARTMENT Provider, Generic External Data 04/09/[address] [facility] [address] [place] [address] Pedro Pulliam MD Iron deficiency; Mixed hyperlipidemia; Primary hypertension 04/04/2025 Orders Only GENERIC EXTERNAL DATA DEPARTMENT Provider, Generic External Data 03/28/2025 10:20 AM EDT Office Visit [facility] [address] [place] [address] Imani Lee MD Impacted cerumen of left ear (Primary Dx) 03/28/[address] [facility] [address] [place] [address] Pedro Pulliam MD Medication Request 03/13/2025 Orders [...] Description 07/17/2025 2:00 PM EDT Office Visit [facility] [address] [place], [place] [phone] Pedro Pulliam MD [address] [place], [place] [phone] Health Maintenance Due Date Last Done Comments Zoster Vaccines (3 of 3) 03/04/2020 01/08/2020, 02/07 RSV Patients and Patients Aged 60 years or older (1 - 1-dose 75+ series) 2021 COVID-19 Vaccine ( - season) 2024 11/11/2021, 03/05/2021, 02/05/2021 Mammogram 04/11/2025 [...] Comments PROTHROMBIN TIME WHOLE BLD POC Routine 05/30/2025 1:08 PM EDT ~PT, ~INR - ANTI COAG CLINIC Routine 05/30/2025 1:08 PM EDT COMPREHENSIVE METABOLIC PANEL Routine 05/03/2025 8:16 AM [...] COAG CLINIC Routine 03/01/2025 2:20 PM EDT LIPID PANEL, STANDARD Routine 01/16/2025 9:13 AM EDT Mixed hyperlipidemia BI MAMMOGRAM DIAGNOSTIC TOMOSYNTHESIS BILATERAL Routine 04/11/2024 3:15 PM EDT Gynecomastia ZZZ HISTORICAL HEPATITIS C AB W/REFL TO HCV RNA, QN, PCR Routine 12/24/2021 8:24 AM EST from Last 3 Months or Most Recently Relevant to Health Maintenance Results * (ABNORMAL) PROTHROMBIN TIME WHOLE BLD POC (05/30/2025 1:08 PM EDT) Only the most recent of6 resultswithin the time period is included. Protime 28.1(H) 11.1 - 13.5 sec [facility] 05/30/2025 1:08 PM EDT 05/30/2025 1:09 PM EDT us Generic External Data Provider LAB BLOOD ORDERAB LES Final Result Performing Organization Address City/[facility]/ZIP Co de Phone Number [facility] [address] [place] [phone] * (ABNORMAL) ~PT, ~INR - ANTI COAG CLINIC (05/30/2025 1:08 PM EDT) Only the most recent of6 resultswithin the time period is included. [facility] Prothrombin Time INR 2.3(H) 0.9 - 1.1 [facility] Comment:METER #: [id number] TERNATIONAL NORMALIZED RATIO (INR) REFERENCE RANGES Reference RangeFor patients not on anticoagulant therapy: 0.9 - 1.1INR ranges for oral anticoagulanttherapy:For prevention and treatment of venous thrombosis and pulmonary embolism: 2.0 - 3.0For acute myocardial infarction with aspirin therapy: 2.0 - 3.0For acute myocardial infarction without aspirin therapy: 3.0 - 4.0For patients with mechanical prosthetic heart valves: 2.5 - 3.5 05/30/2025 1:08 PM EDT 05/30/2025 1:09 PM EDT Generic External Data Provider LAB BLOOD ORDERAB LES Final Result Performing Organization Address [facility]/ZIP Co de Phone Number [facility] [address] [place] [phone] * (ABNORMAL) Comprehensive Metabolic Panel (05/03/2025 8:16 AM EDT) [facility] Sodium 140 135 - 145 mmol/L [facility] Potassium 4.1 3.3 - 5.1 mmol/L [facility] Chloride 111(H) 96 - 108 mmol/L [facility] Carbon Dioxide 22 22 - 29 mmol/L [facility] Anion Gap 11(L) 12 - 20 [facility] Urea Nitrogen (BUN) 21(H) 9 - 16 mg/dL [facility] Creatinine, Serum 2.00(H) 0.5 - 1.4 mg/dL [facility] Estimated Glomerular Filt Rate 32 [facility] Comment:Chronic Kidney Disea se: Estimated GFR < 60 mL/min/1.52d3Oikodx Kidney Disease: Estimated GFR < 15 mL/min/1.73m2 Glucose 87 60 - 115 mg/dL [facility] Calcium 9.0 8.4 - 10.2 mg/dL [facility] Bilirubin, Total 0.9 0.0 - 1.0 mg/dL [facility] Aspartate Amino Transferase 24 5 - 37 U/L [facility] Alanine Aminotransferase 18 0 - 40 U/L [facility] Total Protein 6.5 6.5 - 8.0 g/dL [facility] Albumin Level 4.0 3.5 - 5.0 g/dL [facility] Alkaline Phosphatase 110 39 - 117 U/L [facility] Blood Venous blood specimen / Unknown 05/03/2025 8:16 AM EDT 05/03/2025 11:27 AM EDT us Pedro Julian MD LAB BLOOD ORDERABLES Final Result Performing Organization Address City/State/[facility] Co de Phone Number [facility] [address] [place] [phone] * XR Lumbar Spine 2-3 Views (04/17/2025 1:24 PM EDT) Anatomical Region Laterality Modality Spine, L-spine Radiographic Micaela ging 04/17/2025 1:24 PM EDT Narrative 04/17/2025 2:57 PM EDT [facility] [address] [place] [address] XRay Report Signed Patient: Jamie Carpio MR#: [id number] : 1945 Acct:[id number] Age/Sex: 80 / M ADM Date: 04/17/25 Loc: HO.HHCX Attending Dr: Pedro Webber MD Ordering Physician: Pedro Webber MD Date of Service: 04/17/25 Procedure(s): XR lumbar spine 2-3V Accession Number(s): [id number] cc: Pedro Webber MD EXAMINATION: XR LUMBOSACRAL [...] 04/17/25 1454 DD/ 1324 TD/TT: 04/17/25 1400 Wringer And Setter: Procedure Note Donotuseinterpreter, Image - 04/17/[address] [address] XRay Report Signed Patient: Rik Carpio#: [id number] : 6Acct:[id number] Age/Sex: 80 / MADM Date: 04/17/25 Loc: HO.HHCX Attending Dr: Pedro Webber MD Ordering Physician: Pedro Webber MD Date of Service: 04/17/25 Procedure(s): XR lumbar spine 2-3V Accession Number(s): [id number] cc: Pedro Webber MD EXAMINATION: XR LUMBOSACRAL [...] 04/17/25 1454 DD/ 1324 TD/TT: 04/17/25 1400 Wringer And Setter: us Pedro Julian MD IMG XR PROCEDURES Fin al Result * Urinalysis with Reflex to Microscopic (03/13/2025 2:16 PM EDT) Color Urine Yellow [facility] Appearance Urine Clear [facility] PH 5.0 5.0 - 9.0 [facility] Glucose Urine UA Negative Negative mg/dL [facility] Urine Blood Negative Negative [facility] Specific [place] - Urine 1.010 1.005 - 1.025 [facility] Urine Protein Negative Neg-Trace mg/dL [facility] Urine Ketones Negative Negative mg/dL [facility] Nitrite Urine Negative Negative [facility] Leukocyte Esterase Urine Negative Negative [facility] 03/13/2025 2:16 PM EDT 03/13/2025 3:07 PM EDT us Generic External Data Provider LAB URINE ORDERAB LES Final Result Performing Organization Address City/[facility]/ZIP Co de Phone Number [facility] [address] [place] [phone] * Culture, Urine, Routine (03/13/2025 2:16 PM EDT) Urine Urine specimen obtained by clean catch procedure / Unknown 03/13/2025 2:16 PM EDT 03/13/2025 3:07 PM EDT Comment:UACC Narrative [facility] - 03/14/2025 12:57 PM EDT Urine Culture Report Result Urine Culture < 10,000 cfu/ml Specimen Source: Urine clean catch Generic External Data Provider LAB MICROBIOLOGY - GENERAL ORDERABLES Final Result Performing Organization Address [facility] Co de Phone Number [facility] [address] [place] [phone] * (ABNORMAL) Lipid Panel, Standard (01/16/2025 9:13 AM EDT) Triglycerides 40 <150 mg/dL [facility] Comment:Desirable Triglyceri de: less than 150 mg/dLBorderline High Triglyceride 150-199 mg/dLHigh Triglyceride: 200-499 mg/dLVery High Triglyceride: greater than or equal to 5OO mg/dL Cholesterol 93 <200 mg/dL [facility] Comment:Desirable Cholestero l: less than 200 mg/dLBorderline High Cholesterol: 200-239 mg/dLHigh Cholesterol: greater than 239 mg/dL LDL Cholesterol Calculated 58 <100 mg/dL [facility] Comment:Desirable LDL: less than 100 mg/dLNear Optimal/Above Optimal LDL: 110- 129 mg/dLBorderline High LDL: 130-159 mg/dLHigh LDL: 160-189 mg/dLVery High LDL: greater than or equal to 190 mg/dL HDL Cholesterol 27(L) >40 mg/dL [facility] Comment:Desirable HDL: great er than 40 mg/dL Note: This HDL assay may give artificially low results in patients with liver disease. Blood Venous blood specimen / Unknown 01/16/2025 9:13 AM EDT 01/16/2025 11:29 AM EDT us Pedro Julian MD LAB BLOOD ORDERABLES Final Result [facility] [address] [place], [place] [phone] * BI Mammogram Diagnostic Tomosynthesis Bilateral (04/11/2024 3:15 PM EDT) Anatomical Region Laterality Modality Breast Bilateral Mammography 04/11/2024 3:15 PM EDT Narrative 04/11/2024 4:59 PM EDT [facility] [address] [place] [address] Mammography Report Signed Patient: Jamie Carpio MR#: [id number] : 1945 Acct:[id number] Age/Sex: 79 / M ADM Date: 04/11/24 Loc: HO.MAMMO Attending Dr: Pedro Webber MD Ordering Physician: Pdero Webber MD Resu lts: 2Benign Findings Date of Service: 04/11/24 Follow Up: 1 Year From Orig ina Mammogram Procedure(s): MM tomosynthesis diagnostic BI Accession Number(s): [id number] cc: Pedro Webber MD EXAMINATION: MM DIAGNOSTIC [...] in OV> 04/11/24 1654 DD/ 1515 TD/TT: Wringer And Setter: Procedure Note Donotuseinterpreter, Image - [facility]/11/20[facility] [address] [place], [place] [address] Mammography Report Signed Patient: Sofya CarpioWilton#: [id number] : 6Acct:[id number] Age/Sex: 79 / MADM Date: 04/11/24 Loc: HO.MAMMO Attending Dr: Pedro Webber MD Ordering Physician: Pedro Webber MDResu lts: 2Benign Findings Date of Service: 04/11/24Follow Up: 1 Year From Orig ina Mammogram Procedure(s): MM tomosynthesis diagnostic BI Accession Number(s): [id number] cc: Pedro Webber MD EXAMINATION: MM DIAGNOSTIC [...] in OV> 04/11/24 1654 DD/ 1515 TD/TT: Wringer And Setter: Pedro Julian MD IMG BI PROCEDURES Fin al Result * HEPATITIS C AB W/REFL TO HCV RNA, QN, PCR (12/24/2021 8:24 AM EST) HEPATITIS C ANTIBODY NON-REACT SIL NON-REACT SIL [facility] INDEX 0.01 <1.00 [facility] Comment: HCV antibody was non-reactive. There is no laboratory evidence of HCV infection. In most cases, no further action is required. However, if recent HCV exposure is suspected, a test for HCV RNA (test code 24846) is suggested. For additional information please refer to http://education.[employer].Department of Health and Human Services/faq/OQU98o2 (This link is being provided for informational/ educational purposes only.) 12/24/2021 8:24 AM EST us Pedro Julian MD HISTORICAL/NON ORDERA BLE LABS Final Result [facility] [address] from Last 3 Months or Most Recently Relevant to Health Maintenance Insurance [facility] [employer] OPTIONS (O D-SNP) ANTOINE WANG [id number] Care Teams Hot Metal Mixer Operator Relationship Specialty Start Date End Date Pedro Pulliam MD [address] [place] [phone] PCP - General Internal Medicine 09/10/14 Niko Salamanca MD [address] [place] [address] [address] [place] [phone] Nephrology 01/16/25
--- OUTSIDE RECORDS SUMMARY | 2025-05-30 13:30 | XMS_ITS | Encounter Summary ---
Author Organization [facility] Address [address] [facility] [address] [place] [phone] Phone Care Team Providers Care Skilled Nursing Case Manager Name Role Phone Unavailable Primary Care Provider Unavailabl e Encounter Details Date Type Department Care Team (Late st Contact Info) Description 10/28/2018 Ancillary Orders [facility] [address] [place] [address] [place] [address] Felton Triana MD [address] [place] [phone] [email or web address] Bradycardia Social History Tobacco Use Types Packs/Day Years Used Date Smoking Tobacco: Never Assessed Sex and Gender Information Value Date Recorded Sex Assigned at Not on file Legal Sex Male 2:41 PM EST Gender Identity Not on file Sexual Orientation Not on file documented as of this encounter Plan of Treatment Not on file documented as of this encounter Results * Holter Monitor 24 Hours (10/28/2018 10:34 AM EST) Anatomical Region Laterality Modality Heart Other Narrative 10/28/2018 3:45 PM EST 24-hour monitor: Baseline rhythm is atrial fibrillation. The minimum heart rate is 35, maximum 107, average 56 bpm. Longest pause is 2.52 seconds. There is no diary submitted. There are no patient activations present. The longest pause of 2.5 seconds occurred at about 3:15 in the morning, presumably during hours of sleep. There are about 700 PVCs during the 24 hours, which may represent atrial fibrillation conducted aberrantly. Impression: Abnormal 24-hour monitor. Atrial fibrillation is present throughout the 24-hour recording, details above. There were no symptoms reported or patient activations of the device. Procedure Note Guillermo Cortes MD - 10/28/2018 24-hour monitor: Baseline rhythm is atrial fibrillation. The minimumheart rate is 35, maximum 107, average 56 bpm. Longest pause is 2.52seconds. There is no diary submitted. There are no patient activationspresent. The longest pause of 2.5 seconds occurred at about 3:15 in themorning, presumably during hours of sleep. There are about 700 PVCsduring the 24 hours, which may represent atrial fibrillation conductedaberrantly. Impression: Abnormal 24-hour monitor. Atrial fibrillation is presentthroughout the 24-hour recording, details above. There were no symptomsreported or patient activations of the device. Felton Triana MD [facility]ANT Final Result documented in this encounter Visit Diagnoses Diagnosis Bradycardia Other specified cardiac dysrhythmias Bradycardia Other specified cardiac dysrhythmias documented in this encounter Additional Source Comments The information contained in this document represents components of the legal health record. It is not the complete legal health record.[facility]
== END 2025-05-30 13:14 | disposition home or self-care (01) ==
LOC: HO.ACS 13:02
PROVIDERS: PCP Internal Medicine; Visit Provider Internal Medicine Medical Oncology
DX: Z79.01 Long term (current) use of anticoagulants (principal)

== ENCOUNTER → 2025-05-30 13:02 | Outpatient (BNVA) | payer OTHER, SELFPAY | PROVIDERS: PCP Internal Medicine; Visit Provider Internal Medicine Medical Oncology | DX: I48.0 Paroxysmal atrial fibrillation (principal); Z79.01 Long term (current) use of anticoagulants; Z51.81 Encounter for therapeutic drug level monitoring | CPT/HCPCS: 85610; 99211 ==

== ENCOUNTER 2025-06-26 08:04 | Outpatient (REF) | payer OTHER, SELFPAY ==
[2025-06-26 11:14] LABS: Hematocrit 24.6 % (42.0-52.0); Hemoglobin 7.7 g/dl (14.0-18.0); Mean Corpuscular HGB Conc 31.3 g/dl (31.0-36.0); Mean Corpuscular Hemoglobin 30.2 pg (27.0-33.0); Mean Corpuscular Volume 96.5 fL (80.0-98.0); NRBC Abs Auto 0.000 X10*3/uL (0.0-0.012); NRBC Pct Auto 0.0 /100WBC (0.0-0.2); Platelet Count 109 X10*3/uL (160-400); Red Blood Count 2.55 X10*6/uL (4.60-5.80); White Blood Count 2.9 X10*3/uL (4.8-10.8)
[2025-06-26 11:35] LABS: Anion Gap 12 (12-20); Blood Urea Nitrogen 16 mg/dL (9-16); Calcium 8.8 mg/dL (8.4-10.2); Carbon Dioxide 22 mmol/L (22-29); Chloride 111 mmol/L (96-108); Estimated Glomerular Filt Rate 34; Potassium 3.6 mmol/L (3.3-5.1); Sodium 141 mmol/L (135-145)
[2025-06-26 12:16] LABS: PSA,Total (Free>4and<10) 6.40 ng/mL (0.00-4.00)
[2025-06-27 10:43] LABS: Free Prostate Spec Ag 2.1 ng/mL; Percent Free Prostate Spec Ag 38 % (calc) (>25)
== END 2025-06-26 08:05 | disposition home or self-care (01) ==
LOC: HO.HHCL 08:04
PROVIDERS: Internal Medicine Hypertension Specialist; PCP Internal Medicine; Visit Provider Urology
DX: Z12.5 Encounter for screening for malignant neoplasm of prostate (principal); R97.20 Elevated prostate specific antigen [PSA]; N18.9 Chronic kidney disease, unspecified
CPT/HCPCS: 36415; 80048; 84153; 84154; 85027

== ENCOUNTER 2025-06-27 12:58 | Outpatient (AMB) | payer OTHER, SELFPAY ==
[2025-06-27 13:03] LABS: Prothrombin Time Whole Bld POC 57.0 sec (11.1-13.5); ~PT, ~INR - Anti Coag Clinic 4.8 (0.9-1.1)
--- NOTE | 2025-06-27 13:15 | MHC.OFFVISCO ---
Intake Intake Visit Reasons: Anticoagulation Allergies No Known Allergies (No Known Allergies*) Allergy (Verified 06/27/25 12:59) Medication List - Last Reconciled 06/27/25 by Neena Boyce RN amlodipine 5 mg PO DAILY atorvastatin 80 mg PO BEDTIME carbamide peroxide 6.5% (Ear Wax Removal Drops) 5 drps otic (ear) left BID cholecalciferol (vitamin D3) 25 mcg PO DAILY dorzolamide-timolol 22.3-6.8 mg/mL 22.3 drps ophthalmic (eye) BID ferrous sulfate (FeroSul) 1 tab PO DAILY furosemide 40 mg PO DAILY iron sucrose (Venofer) 200 mg IV Q3D octreotide acetate (Mycapssa) 20 mg PO DAILY Held on 11/20/22. Instructions: rejected by insurance terazosin 5 mg PO BEDTIME 90 days travoprost 0.004% 1 drp ophthalmic (eye) BEDTIME warfarin 5 mg See Protocol PO DAILY Nursing Note PT.STATES THAT HIS APPETITE HAS BEEN DECREASED RECENTLY, AND ADMITS TO PROBABLY NOT DRINKING ENOUH=GH FLUIDS. NO CP,SOB MED CHANGES OR SX OF BLEEDING. HOLD WARFARIN TODAT,DECREASE TOMORROW TO 2.5MGM AND FOLLOW-UP IN 1 WEEK GOOD UNDETRSTANDING OF DOSING INSTR. Anti-Coag Initial Assessment Social Hx Patient Tobacco Use Status: Former Tobacco user Tobacco use type: Cigarette alcohol intake: former Alcohol intake frequency: does not drink Coding Level of Care Code Est Patient Level 1 Diagnoses Current use of anticoagulant therapy Z79.01 Assessment & Plan Assessment & Plan (1) Current use of anticoagulant therapy: Comment: warfarin-Otto Pfeiffer- need to confirm ok to stop 5 days prior to colonoscopy-unable to send note through expanse Patient aware this must be confirmed, there were no major barriers to understanding identified Code(s): Z79.01 - assisted (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
--- OUTSIDE RECORDS SUMMARY | 2025-06-27 13:49 | XMS_ITS | Clinical Summary ---
Author Organization [facility] ity Address [address] [place] [address] Care Team Providers Care Curriculum And Assessment Coordinator Name Role Phone Unavailable Primary Care [...] Documents on File Type Date Recorded Patient Inside Wireman Expl anation Health Care Decision (hx) 01/10/2020 AD PHILLIP DIRECTIVE
--- OUTSIDE RECORDS SUMMARY | 2025-06-27 13:49 | XMS_ITS | Clinical Summary ---
Author Organization [employer] Address [address] [facility] [address] [place] [address] Care Team Providers Care Apparel Designer Name Role Phone Pedro Pulliam MD Primary Care Provide r Niko Salamanca MD Unavailable [phone] Summer Wills MD Unavailable [phone] Allergies No known active allergies Medications Aspirin Low Dose 81 MG EC tabletIndications: Primary hypertension TAKE 1 TABLET BY MOUTH EVERY DAY 30 tablet 6 4 Active warfarin (Coumadin) 5 MG tabletIndications: Atrial fibrillation, unspecified type (CMS/HCC) TAKE 1 TABLET BY MOUTH EVERY DAY DIRECTED BY [facility] 90 tablet 4 Active furosemide (Lasix) 20 MG tabletIndications: Stage 3 chronic kidney disease, unspecified whether stage 3a or 3b CKD (CMS/HCC),Primary hypertension,Nonrh eumatic tricuspid valve regurgitation 1 tab daily 60 tablet 4 Active carbamide peroxide (Debrox) 6.5 % otic solutionIndication s:Impacted cerumen of left ear Administer 5 drops into the left ear 2 times daily. 15 mL 5 Active Ferrous Sulfate (iron) 325 (65 Fe) MG tabletIndications: Iron deficiency TAKE 1 TABLET BY MOUTH ONCE DAILY 90 tablet 1 5 Active atorvastatin (Lipitor) 80 MG tabletIndications: Mixed hyperlipidemia TAKE 1 TABLET BY MOUTH AT BEDTIME 90 tablet 1 5 Active amLODIPine (Norvasc) 5 MG tabletIndications: Primary hypertension TAKE 1 TABLET BY MOUTH ONCE DAILY 90 tablet 1 5 Active cholecalciferol (Vitamin D-3) 25 MCG tabletIndications: Vitamin D deficiency TAKE 1 TABLET BY MOUTH EVERY DAY 90 tablet 1 5 Active warfarin (Coumadin) 5 MG tabletIndications: Atrial fibrillation, unspecified type (CMS/HCC) TAKE 1 TABLET BY MOUTH EVERY DAY DIRECTED BY [facility]ADIN CLINIC 90 tablet 3 5 Active Active Problems Problem Noted Date [...] showed diverticulosis only by Dr connors at [facility] Mixed hyperlipidemia 08/13/2015 09/15/2023 Assessment & Plan [...] the past by his vascular surgeon at [facility] [place] (Dr Lind) whose recommendation was conservative treatment, he saw NO role for any type of surgical intervention. He recommended to repeat the scan in 1 year and continue to take Asa 81 mg po daily. Pt was last seen by his manager of community relations at [facility] 09/14/2023 recommended repeat [...] and lasix 20 mg daily prescribed by Guzzler Builder. Pt is off Lisinopril 40 mg po daily (stopped by [employer] Servicer 04/01) I had recently lowered his Lasix [...] and lasix 20 mg daily prescribed by Guzzler Builder. I had recently lowered his Lasix due [...] and lasix 20 mg daily prescribed by Guzzler Builder. I had recently lowered his Lasix due [...] Am and 20 mg PM prescribed by Guzzler Builder. I had recently lowered his Lasix due [...] Am and 20 mg PM prescribed by Guzzler Builder. Pt developed some bilateral ankle edema due [...] Furosemide 20 mg po BID prescribed by Guzzler Builder. Pt developed some bilateral ankle edema due [...] Furosemide 20 mg po BID prescribed by Guzzler Builder. Pt developed some bilateral ankle edema due [...] clinical impression. Plan: Breast center referral at [facility] [place] Assessment & Plan (02/01/2024 1:36 PM EDT): [...] Encounters Date Type Department Care Team Description 06/27/2025 Orders Only GENERIC EXTERNAL DATA DEPARTMENT Provider, Generic External Data 06/26/2025 Results Follow-Up [facility] [address] [place] [address] Avis Koenig MD CBC, Basic Metabolic Panel, PSA, Total With Reflex to PSA, Free 06/26/2025 Orders Only GENERIC EXTERNAL DATA DEPARTMENT Provider, Generic External Data 05/30/2025 Orders Only GENERIC EXTERNAL DATA DEPARTMENT Provider, Generic External Data 05/23/2025 Telephone [facility] [address] [place] [address] Pedro Pulliam MD Medication Question 05/21/2025 Refill [facility] [address] [place] [address] Avis Koenig MD Atrial fibrillation, unspecified type (CMS/HCC) 05/17/2025 Refill [facility] [address] [place] [address] Avis Koenig MD Vitamin D deficiency 05/03/2025 Results Follow-Up [facility] [address] [place] [address] Pedro Pulliam MD Comprehensive Metabolic Panel 05/02/2025 Orders Only GENERIC EXTERNAL DATA DEPARTMENT Provider, Generic External Data 04/17/2025 1:15 PM EDT Office Visit [facility] [address] [place] [phone] Pedro Pulliam MD Stage 3b chronic kidney disease (CMS/HCC) (Primary Dx); Longstanding persistent atrial fibrillation (CMS/HCC); Benign prostatic hyperplasia with urinary frequency; Gynecomastia; Primary hypertension; Sciatica of left side 04/17/2025 Travel 04/16/2025 Telephone [facility] [address] [place] [address] Pedro Pulliam MD Chart Prep 04/15/2025 Refill [facility] [address] [place] [address] Pedro Pulliam MD Primary hypertension 04/11/2025 Orders Only GENERIC EXTERNAL DATA DEPARTMENT Provider, Generic External Data 04/09/2025 Refill [facility] [address] [place] [address] Pedro Pulliam MD Iron deficiency; Mixed hyperlipidemia; Primary hypertension 04/04/2025 Orders Only GENERIC EXTERNAL DATA DEPARTMENT Provider, Generic External Data 03/28/2025 10:20 AM EDT Office Visit [facility] [address] [place] [address] Imani Lee MD Impacted cerumen of left ear (Primary Dx) 03/28/2025 Telephone [facility] [address] [place] [address] Pedro Pulliam MD Medication Request from Last 3 Months Immunizations Immunization Administration [...] Description 07/17/2025 2:00 PM EDT Office Visit [facility] [address], [place] [phone] Pedro Pulliam MD [address] [place], [place] [phone] Health Maintenance Due Date Last Done Comments [...] Comments PROTHROMBIN TIME WHOLE BLD POC Routine 06/27/2025 1:02 PM EDT ~PT, ~INR - ANTI COAG CLINIC Routine 06/27/2025 1:02 PM EDT PSA, FREE AND TOTAL Routine 06/26/2025 1 2:16 PM EDT PSA, TOTAL WITH REFLEX TO PSA, FREE Routine 06/26/2025 8:09 AM EDT BASIC METABOLIC PANEL Routine 06/26/2025 8:09 AM EDT CBC Routine 06/26/2025 8:09 AM EDT PROTHROMBIN TIME WHOLE BLD POC Routine 05/30/2025 [...] COAG CLINIC Routine 04/04/2025 1:14 PM EDT LIPID PANEL, STANDARD Routine 01/16/2025 9:13 AM EDT Mixed hyperlipidemia BI MAMMOGRAM DIAGNOSTIC TOMOSYNTHESIS BILATERAL Routine 04/11/2024 3:15 PM EDT Gynecomastia ZZZ HISTORICAL HEPATITIS C AB W/REFL TO HCV RNA, QN, PCR Routine 12/24/2021 8:24 AM EST from Last 3 Months or Most Recently Relevant to Health Maintenance Results * (ABNORMAL) PROTHROMBIN TIME WHOLE BLD POC (06/27/2025 1:02 PM EDT) Only the most recent of5 resultswithin the time period is included. Protime 57.0(H) 11.1 - 13.5 sec [facility] 06/27/2025 1:02 PM EDT 06/27/2025 1:03 PM EDT us Generic External Data Provider LAB BLOOD ORDERAB LES Final Result [facility] [address] [place] [address] [phone] * (ABNORMAL) ~PT, ~INR - ANTI COAG CLINIC (06/27/2025 1:02 PM EDT) Only the most recent of5 resultswithin the time period is included. Prothrombin Time INR 4.8(H) 0.9 - 1.1 [facility] Comment:METER #: [id number] TERNATIONAL NORMALIZED RATIO (INR) REFERENCE RANGES Reference RangeFor patients not on anticoagulant therapy: 0.9 - 1.1INR ranges for oral anticoagulanttherapy:For prevention and treatment of venous thrombosis and pulmonary embolism: 2.0 - 3.0For acute myocardial infarction with aspirin therapy: 2.0 - 3.0For acute myocardial infarction without aspirin therapy: 3.0 - 4.0For patients with mechanical prosthetic heart valves: 2.5 - 3.5 06/27/2025 1:02 PM EDT 06/27/2025 1:03 PM EDT us Generic External Data Provider LAB BLOOD ORDERAB LES Final Result Performing Organization Address [facility]/State/ZIP Co de Phone Number [facility] [address] [place] [phone] * (ABNORMAL) PSA, Free and Total (06/26/2025 12:16 PM EDT) PSA, Total 5.6(A) < OR = 4.0 ng/mL [facility] PSA % Free 38 >25 % (calc) [facility] Comment: PSA(ng/mL) Free PSA(%) Estimated(x) Probability of Cancer(as%)0-2.5 (*) Approx. 12.6-4.0(1) 0-27(2) 24(3)4.1-10(4) 0-10 56 11-15 28 16-20 20 21-25 16 >or =26 8>10(+) N/A >50References:(1)Tc et al.:Urology 60: 469-474 (2002) (2)Tc et al.:J.Urol 168: 922-925 (2001) Free PSA(%) Sensitivity(%) Specificity(%) < or = 25 85 19 < or = 30 93 9 (3)Tristenona et al.:MARLEEN 277: 2143-2442 (1996) (4)Catalona et al.:MARLEEN 279: 7790-9320 (1997)(x)These estimates vary with age, ethnicity, family history and VANNESA results.(*)The diagnostic usefulness of % Free PSA has not been established in patients with total PSA below 2.6 ng/mL(+)In men with PSA above 10 ng/mL, prostate cancer risk is determined by total PSA alone.The Total PSA value from this assay system isstandardized against the equimolar PSA standard.The test result will be approximately 20% higherwhen compared to the WHO-standardized Total PSA(Siemens assay). Comparison of serial PSA resultsshould be interpreted with this fact in mind.PSA was performed using the Desi CoulterImmunoassay method. Values obtained from differentassay methods cannot be used interchangeably. PSAlevels, regardless of value, should not be interpretedas absolute evidence of the presence or absence ofdisease.THIS TEST WAS PERFORMED AT:[facility] [place] [phone] SEGURA MD PSA, Free 2.1 ng/mL [facility] 06/26/2025 12:1 6 PM EDT 06/26/2025 12:16 PM EDT us Generic External Data Provider LAB BLOOD ORDERAB LES Final Result [facility] [address] [place] [phone] [phone] * (ABNORMAL) PSA, Total With Reflex to PSA, Free (06/26/2025 8:09 AM EDT) PSA,Total (Free>4and<10) 6.40(H) 0.00 - 4.00 ng/mL [facility] Comment:PSA methodology: Abb reina Alinity i ChemiluminescentMicroparticle Immunoassay (CMIA) 06/26/2025 8:09 AM EDT 06/26/2025 10:58 AM EDT us Generic External Data Provider LAB BLOOD ORDERAB LES Final Result Performing Organization Address City/[facility]/ZIP Co de Phone Number [facility] [address] [place] [phone] * (ABNORMAL) CBC (06/26/2025 8:09 AM EDT) White Blood Count 2.9(L) 4.8 - 10.8 X10*3/uL [facility] Red Blood Count 2.55(L) 4.60 - 5.80 X10*6/uL [facility] Hemoglobin 7.7(L) 14.0 - 18.0 g/dl [facility] Hematocrit 24.6(L) 42.0 - 52.0 % [facility] Mean Corpuscular Volume 96.5 80.0 - 98.0 fL [facility] Mean Corpuscular Hemoglobin 30.2 27.0 - 33.0 pg [facility] Mean Corpuscular HGB Conc 31.3 31.0 - 36.0 g/dl [facility] Red Cell Distribution Width 14.6 11.0 - 16.0 % [facility] Platelet Count 109(L) 160 - 400 X10*3/uL [facility] Mean Platelet Volume 10.8 9.4 - 12.4 fL [facility] NRBC Pct Auto 0.0 0.0 - 0.2 /100WBC [facility] NRBC Abs Auto 0.000 0.0 - 0.012 X10*3/uL [facility] 06/26/2025 8:09 AM EDT 06/26/2025 10:58 AM EDT us Generic External Data Provider LAB BLOOD ORDERAB LES Final Result Performing Organization Address City/[facility]/ZIP Co de Phone Number [facility] [address] [place] [phone] * (ABNORMAL) Basic Metabolic Panel (06/26/2025 8:09 AM EDT) Sodium 141 135 - 145 mmol/L [facility] Potassium 3.6 3.3 - 5.1 mmol/L [facility] Chloride 111(H) 96 - 108 mmol/L [facility] Carbon Dioxide 22 22 - 29 mmol/L [facility] Anion Gap 12 12 - 20 [facility] Urea Nitrogen (BUN) 16 9 - 16 mg/dL [facility] Creatinine, Serum 1.90(H) 0.5 - 1.4 mg/dL [facility] Estimated Glomerular Filt Rate 34 [facility] Comment:Chronic Kidney Disea se: Estimated GFR < 60 mL/min/1.78a9Efwika Kidney Disease: Estimated GFR < 15 mL/min/1.73m2 Glucose 85 60 - 115 mg/dL [facility] Calcium 8.8 8.4 - 10.2 mg/dL [facility] 06/26/2025 8:09 AM EDT 06/26/2025 10:58 AM EDT us Generic External Data Provider LAB BLOOD ORDERAB LES Final Result [facility] [address] [place] [phone] * (ABNORMAL) Comprehensive Metabolic Panel (05/03/2025 8:16 AM EDT) Sodium 140 135 - 145 mmol/L [facility] Potassium 4.1 3.3 - 5.1 mmol/L [facility] Chloride 111(H) 96 - 108 mmol/L [facility] Carbon Dioxide 22 22 - 29 mmol/L [facility] Anion Gap 11(L) 12 - 20 [facility] Urea Nitrogen (BUN) 21(H) 9 - 16 mg/dL [facility] Creatinine, Serum 2.00(H) 0.5 - 1.4 mg/dL [facility] Estimated Glomerular Filt Rate 32 [facility] Comment:Chronic Kidney Disea se: Estimated GFR < 60 mL/min/1.07d2Rmudwe Kidney Disease: Estimated GFR < 15 mL/min/1.73m2 Glucose 87 60 - 115 mg/dL [facility] Calcium 9.0 8.4 - 10.2 mg/dL [facility] Bilirubin, Total 0.9 0.0 - 1.0 mg/dL [facility] Aspartate Amino Transferase 24 5 - 37 U/L [facility] Alanine Aminotransferase 18 0 - 40 U/L [facility] Total Protein 6.5 6.5 - 8.0 g/dL [facility] Albumin Level 4.0 3.5 - 5.0 g/dL [facility] Alkaline Phosphatase 110 39 - 117 U/L [facility] Blood Venous blood specimen / Unknown 05/03/2025 8:16 AM EDT 05/03/2025 11:27 AM EDT us Pedro Julian MD LAB BLOOD ORDERABLES Final Result Performing Organization Address City/State/[facility] Co de Phone Number [facility] [address] [place] [phone] * XR Lumbar Spine 2-3 Views (04/17/2025 1:24 PM EDT) Anatomical Region Laterality Modality Spine, L-spine Radiographic Micaela ging 04/17/2025 1:24 PM EDT Narrative 04/17/2025 2:57 PM EDT [address] [address] XRay Report Signed Patient: Jamie Carpio MR#: [id number] : 1945 Acct:[id number] Age/Sex: 80 / M ADM Date: 04/17/25 Loc: .HHCX Attending Dr: Pedro Webber MD Ordering Physician: SnowPedro Hickey MD Date of Service: 04/17/25 Procedure(s): XR lumbar spine 2-3V Accession Number(s): [id number] cc: Pedro Webber MD EXAMINATION: XR LUMBOSACRAL [...] 04/17/25 1454 DD/ 1324 TD/TT: 04/17/25 1400 Boom Cat Operator: Procedure Note Donotuseinterpreter, Image - 04/17/[address] [place] [address] XRay Report Signed Patient: Rik Carpio#: [id number] : 1945Acct:[id number] Age/Sex: 80 / MADM Date: 04/17/25 Loc: HO.HHCX Attending Dr: Pedro Webber MD Ordering Physician: Pedro Webber MD Date of Service: 04/17/25 Procedure(s): XR lumbar spine 2-3V Accession Number(s): [id number] cc: Pedro Webber MD EXAMINATION: XR LUMBOSACRAL [...] 04/17/25 1454 DD/ 1324 TD/TT: 04/17/25 1400 Boom Cat Operator: us Pedro Julian MD IMG XR PROCEDURES Fin al Result * (ABNORMAL) Lipid Panel, Standard (01/16/2025 9:13 AM EDT) Triglycerides 40 <150 mg/dL [facility] Comment:Desirable Triglyceri de: less than 150 mg/dLBorderline High Triglyceride 150-199 mg/dLHigh Triglyceride: 200-499 mg/dLVery High Triglyceride: greater than or equal to 5OO mg/dL Cholesterol 93 <200 mg/dL [facility] Comment:Desirable Cholestero l: less than 200 mg/dLBorderline High Cholesterol: 200-239 mg/dLHigh Cholesterol: greater than 239 mg/dL LDL Cholesterol Calculated 58 <100 mg/dL [facility] Comment:Desirable LDL: less than 100 mg/dLNear Optimal/Above Optimal LDL: 110- 129 mg/dLBorderline High LDL: 130-159 mg/dLHigh LDL: 160-189 mg/dLVery High LDL: greater than or equal to 190 mg/dL HDL Cholesterol 27(L) >40 mg/dL [facility] Comment:Desirable HDL: great er than 40 mg/dL Note: This HDL assay may give artificially low results in patients with liver disease. Blood Venous blood specimen / Unknown 01/16/2025 9:13 AM EDT 01/16/2025 11:29 AM EDT Pedro Julian MD LAB BLOOD ORDERABLES Final Result Performing Organization Address City/State/[facility] Co de Phone Number [facility] [address] [place] [phone] * BI Mammogram Diagnostic Tomosynthesis Bilateral (04/11/2024 3:15 PM EDT) Anatomical Region Laterality Modality Breast Bilateral Mammography 04/11/2024 3:15 PM EDT Narrative 04/11/2024 4:59 PM EDT [facility] [address] [place] [address] Mammography Report Signed Patient: Jamie Carpio MR#: [id number] : 1945 Acct:[id number] Age/Sex: 79 / M ADM Date: 04/11/24 Loc: HO.MAMMO Attending Dr: Pedro Webber MD Ordering Physician: Pedro Webber MD Resu lts: 2Benign Findings Date of Service: 04/11/24 Follow Up: 1 Year From Orig inal Mammogram Procedure(s): MM tomosynthesis diagnostic BI Accession Number(s): [id number] cc: Pedro Webber MD EXAMINATION: MM DIAGNOSTIC [...] Miguel A Bradley MD in OV> 04/11/24 7128 DD/ 8271 TD/TT: Boom Cat Operator: Procedure Note Donotuseinterpreter, Image - 04/11/2024 [facility] [address] [place] [address] Dr. [place], [place] [address] Mammography Report Signed Patient: Rik Carpio#: [id number] : 6Acct:[id number] Age/Sex: 79 / MADM Date: 04/11/24 Loc: HO.MAMMO Attending Dr: Pedro Webber MD Ordering Physician: Pedro Webber MDResu lts: 2Benign Findings Date of Service: 04/11/24Follow Up: 1 Year From Orig inal Mammogram Procedure(s): MM tomosynthesis diagnostic BI Accession Number(s): [id number] cc: Pedro Webber MD EXAMINATION: MM DIAGNOSTIC [...] in OV> 04/11/24 1654 DD/ 1515 TD/TT: Boom Cat Operator: Pedro Julian MD IMG BI PROCEDURES Fin al Result * HEPATITIS C AB W/REFL TO HCV RNA, QN, PCR (12/24/2021 8:24 AM EST) HEPATITIS C ANTIBODY NON-REACT SIL NON-REACT SIL [facility] INDEX 0.01 <1.00 [facility] Comment: HCV antibody was non-reactive. There is no laboratory evidence of HCV infection. In most cases, no further action is required. However, if recent HCV exposure is suspected, a test for HCV RNA (test code 69757) is suggested. For additional information please refer to http://education.Patient Feed.GTI/faq/LND58b6 (This link is being provided for informational/ educational purposes only.) 12/24/2021 8:24 AM EST Pedro Julian MD HISTORICAL/NON ORDERA BLE LABS Final Result [facility] [address] from Last 3 Months or Most Recently Relevant to Health Maintenance Insurance [employer] [id number] Care Teams Apparel Designer Relationship Specialty Start Date End Date Pedro Pulliam MD [address] [place] [address] PCP - General Internal Medicine 09/10/14 Niko Salamanca MD [address] [place] [phone] Nephrology 01/16/25 Summer Wills MD [address] [place] [phone] Hematology and Oncology 06/27/25
--- OUTSIDE RECORDS SUMMARY | 2025-06-27 13:49 | XMS_ITS | Encounter Summary ---
Author Organization [facility] Address [address] [place] [phone] Phone Care Team Providers Care Zmt Operator Name Role Phone Unavailable Primary Care Provider Unavailabl e Encounter Details Date Type Department Care Team (Late st Contact Info) Description 10/28/2018 Ancillary Orders [facility] [address] [place] [address] [place] [address] Felton Triana MD [address] [place] [phone] [email or web address] Bradycardia Social History Tobacco Use Types Packs/Day [...] It is not the complete legal health record.[facility]
--- OUTSIDE RECORDS SUMMARY | 2025-06-27 13:49 | XMS_ITS | Patient Health Record ---
Author Organization [facility] Address [address] [place] [address] Care Team Providers Care Plastic Surgery Nurse Name Role Phone Gwendolyn Julian MD, Pedro Primary Care Provide r Unavailable Favian Hardin Jr Unavailable Reason For Referral No Information Plan Of Treatment No Information Insurance Providers Payer Name Payer Address Payer Phone Subscriber Number Group Number Insured Name Patient Relationship to Insured Coverage Start Date Coverage End Date MEDICARE OF [facility] [address] [facility] [place] [id number] [phone] [id number] LILY RINCON Self - patient is the insured
--- OUTSIDE RECORDS SUMMARY | 2025-06-27 13:49 | XMS_ITS | Clinical Summary ---
Author Organization [facility] Address [address] [address] Care Team Providers Care Elevator Constructor Helper Name Role Phone Pedro Snow MD Primary [...] age to complete this topic Care Teams Elevator Constructor Helper Relationship Specialty Start Date End Date Pedro Snow MD PCP - General 11/18/20
== END 2025-06-27 13:22 | disposition home or self-care (01) ==
LOC: HO.ACS 12:58
PROVIDERS: PCP Internal Medicine; Visit Provider Internal Medicine Medical Oncology
DX: Z79.01 Long term (current) use of anticoagulants (principal)

== ENCOUNTER → 2025-06-27 12:58 | Outpatient (BNVA) | payer OTHER, SELFPAY | PROVIDERS: PCP Internal Medicine; Visit Provider Internal Medicine Medical Oncology | DX: Z79.01 Long term (current) use of anticoagulants (principal) | CPT/HCPCS: 85610; 99211 ==

== ENCOUNTER 2025-07-04 13:07 | Outpatient (AMB) | payer OTHER, SELFPAY ==
--- NOTE | 2025-07-04 13:26 | MHC.OFFVISCO ---
Intake Intake Visit Reasons: Anticoagulation Allergies No Known Allergies (No Known Allergies*) Allergy (Verified 07/04/25 13:10) Medication List - Last Reconciled 07/04/25 by Neena Boyce RN amlodipine 5 mg PO DAILY atorvastatin 80 mg PO BEDTIME carbamide peroxide 6.5% (Ear Wax Removal Drops) 5 drps otic (ear) left BID cholecalciferol (vitamin D3) 25 mcg PO DAILY dorzolamide-timolol 22.3-6.8 mg/mL 22.3 drps ophthalmic (eye) BID ferrous sulfate (FeroSul) 1 tab PO DAILY furosemide 40 mg PO DAILY iron sucrose (Venofer) 200 mg IV Q3D octreotide acetate (Mycapssa) 20 mg PO DAILY Held on 11/20/22. Instructions: rejected by insurance terazosin 5 mg PO BEDTIME 90 days travoprost 0.004% 1 drp ophthalmic (eye) BEDTIME warfarin 5 mg See Protocol PO DAILY Nursing Note PT.STILL FATIGUED. HGB.WAS NOTED TO BE 7.7 AND HCT. 24.6 ON 06/26. PT.WAS TRANSFUSED 1 UNIT PER PT. THERE IS NO NOTED CP,SOB OR SX OF BLEEDING. PT.ADMITS TO ONLY MODERATE FLUID INTAKE AND FAIR APPETITE. HOLD WARFARIN 2 DAYS THEN RESUCE WEEKLY DOSE AND FOLLOW-UP IN 1 WEEK GOOD UNDERSTANDING VERB. PT.AGREES TO GO TO ED IF ANY CP,SOB OR SX OF BLEEDING. Anti-Coag Initial Assessment Social Hx Patient Tobacco Use Status: Former Tobacco user Tobacco use type: Cigarette alcohol intake: former Alcohol intake frequency: does not drink Coding Level of Care Code Est Patient Level 1 Diagnoses Current use of anticoagulant therapy Z79.01 Results AMB INR Fingerstick AMB INR Fingerstick 4.5 Last Edit by Neena Boyce RN on 07/04/25 13:20 Assessment & Plan Assessment & Plan (1) Current use of anticoagulant therapy: Comment: warfarin-Otto Margarette- need to confirm ok to stop 5 days prior to colonoscopy-unable to send note through expanse Patient aware this must be confirmed, there were no major barriers to understanding identified Code(s): 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
--- OUTSIDE RECORDS SUMMARY | 2025-07-04 13:35 | XMS_ITS | Clinical Summary ---
Author Organization [employer] Address [address] [facility] 7t [place] [address] Care Team Providers Care Tourism Radio Presenter Name Role Phone Pedro Pulliam MD Primary Care Provide r Niko Salamanca MD Unavailable [phone] Summer Wills MD Unavailable [phone] Allergies No known active allergies Medications [...] pt currently undergoing PT with good results. [facility] care 09/23/2023 Assessment & Plan (10/17/2024 1:55 [...] showed diverticulosis only by Dr connors at [facility] Mixed hyperlipidemia 08/13/2015 09/15/2023 Assessment & Plan [...] the past by his vascular surgeon at [facility] (Dr Lind) whose recommendation was conservative treatment, he saw NO role for any type of surgical intervention. He recommended to repeat the scan in 1 year and continue to take Asa 81 mg po daily. Pt was last seen by his conical mixer at [facility] 09/14/2023 recommended repeat US and ECHO and 6 month follow up He is on Aspirin started by their office Last Carotid US on record from 02/11/2023 Hypertension 04/21/2012 09/15/2023 Assessment & Plan (04/17/2025 1:40 PM EDT): Pt here for a f/u BP stable He is on a regimen of: Norvasc 5 mg daily, and lasix 20 mg daily prescribed by Exercise Manager. Pt is off Lisinopril 40 mg po daily (stopped by Tail Worker 04/01) I had recently lowered his Lasix [...] and lasix 20 mg daily prescribed by Exercise Manager. I had recently lowered his Lasix [...] and lasix 20 mg daily prescribed by Exercise Manager. I had recently lowered his Lasix [...] Am and 20 mg PM prescribed by Exercise Manager. I had recently lowered his Lasix [...] Am and 20 mg PM prescribed by Exercise Manager. Pt developed some bilateral ankle edema [...] Furosemide 20 mg po BID prescribed by Exercise Manager. Pt developed some bilateral ankle edema [...] Furosemide 20 mg po BID prescribed by Exercise Manager. Pt developed some bilateral ankle edema [...] clinical impression. Plan: Breast center referral at [facility] Assessment & Plan (02/01/2024 1:36 PM EDT): [...] Provider, Generic External Data 06/26/2025 Results Follow-Up [facility] [address] [place] [address] Avis Koenig MD CBC, Basic Metabolic Panel, PSA, Total With Reflex to PSA, Free 06/26/2025 Orders Only GENERIC EXTERNAL DATA DEPARTMENT Provider, Generic External Data 05/30/2025 Orders Only GENERIC EXTERNAL DATA DEPARTMENT Provider, Generic External Data 05/23/2025 Telephone [facility] [address] [place] [address] Pedro Pulliam MD Medication Question 05/21/2025 Refill [facility] [address] [place] [address] Avis Koenig MD Atrial fibrillation, unspecified type (CMS/HCC) 05/17/2025 Refill [facility] [address] [place] [address] Avis Koenig MD Vitamin D deficiency 05/03/2025 Results Follow-Up [facility] [address] [place] [address] Pedro Pulliam MD Comprehensive Metabolic Panel 05/02/2025 Orders Only GENERIC EXTERNAL DATA DEPARTMENT Provider, Generic External Data 04/17/2025 1:15 PM EDT Office Visit [facility] [address] [place] [phone] Pedro Pulliam MD Stage 3b chronic kidney disease (CMS/HCC) (Primary Dx); Longstanding persistent atrial fibrillation (CMS/HCC); Benign prostatic hyperplasia with urinary frequency; Gynecomastia; Primary hypertension; Sciatica of left side 04/17/2025 Travel 04/16/2025 Telephone [facility] [address] [place] [address] Pedro Pulliam MD Chart Prep 04/15/2025 Refill [facility] [address] [place] [address] Pedro Pulliam MD Primary hypertension 04/11/2025 Orders Only GENERIC EXTERNAL DATA DEPARTMENT Provider, Generic External Data 04/09/2025 Refill [facility] [address] [place] [address] Pedro Pulliam MD Iron deficiency; Mixed hyperlipidemia; [...] housing situation today? I have prashant ried 10/17/[address] you li [...] Description 07/17/2025 2:00 PM EDT Office Visit [facility] [address] [facility] [place] [address] Pedro Pulliam MD [address] [place] [address] Health Maintenance Due Date Last Done Comments [...] included. Protime 57.0(H) 11.1 - 13.5 sec [facility] 06/27/2025 1:02 PM EDT 06/27/2025 1:03 PM EDT us Generic External Data Provider LAB BLOOD ORDERAB LES Final Result [facility] [address] [place] [phone] * (ABNORMAL) ~PT, ~INR - ANTI COAG CLINIC (06/27/2025 1:02 PM EDT) Only the most recent of5 resultswithin the time period is included. Prothrombin Time INR 4.8(H) 0.9 - 1.1 [facility] Comment:METER #: [id number] TERNATIONAL NORMALIZED RATIO (INR) REFERENCE RANGES Reference [...] Provider LAB BLOOD ORDERAB LES Final Result [facility] [address] [place] [address] [phone] * (ABNORMAL) PSA, Free and Total (06/26/2025 12:16 PM EDT) PSA, Total 5.6(A) < OR = 4.0 ng/mL [facility] PSA % Free 38 >25 % (calc) [facility] Comment: PSA(ng/mL) Free PSA(%) Estimated(x) Probability of Cancer(as%)0-2.5 (*) Approx. 12.6-4.0(1) 0-27(2) 24(3)4.1-10(4) 0-10 56 11-15 28 16-20 20 21-25 16 >or =26 8>10(+) N/A >50References:(1)Tc et al.:Urology 60: 469-474 (2002) (2)Catalrochelle et al.:J.Urol 168: 922-925 (2001) Free PSA(%) Sensitivity(%) Specificity(%) < or = 25 85 19 < or = 30 93 9 (3)Tristenona et al.:MARLEEN 277: 6178-0637 (1996) (4)Catalona et al.:MARLEEN 279: 2172-3977 (1998)(x)These estimates vary with age, ethnicity, family history [...] presence or absence ofdisease.THIS TEST WAS PERFORMED AT:[facility] [place] [phone] SEGURA MD PSA, Free 2.1 ng/mL [facility] 06/26/2025 12:1 6 PM EDT 06/26/2025 12:16 PM EDT Generic External Data Provider LAB BLOOD ORDERAB LES Final Result Performing Organization Address [facility] Co de Phone Number [facility] [address] [place] [phone] * (ABNORMAL) PSA, Total With Reflex to PSA, Free (06/26/2025 8:09 AM EDT) PSA,Total (Free>4and<10) 6.40(H) 0.00 - 4.00 ng/mL [facility] Comment:PSA methodology: Abb reina Gillespie i ChemiluminescentMicroparticle Immunoassay (CMIA) 06/26/2025 8:09 AM EDT 06/26/2025 10:58 AM EDT us Generic External Data Provider LAB BLOOD ORDERAB LES Final Result Performing Organization Address [facility]/ZIP Co de Phone Number [facility] [address] [place] [phone] * (ABNORMAL) CBC (06/26/2025 8:09 AM EDT) Pathologist [facility] White Blood Count 2.9(L) 4.8 - 10.8 X10*3/uL [facility] Red Blood Count 2.55(L) 4.60 - 5.80 X10*6/uL [facility] Hemoglobin 7.7(L) 14.0 - 18.0 g/dl [facility] Hematocrit 24.6(L) 42.0 - 52.0 % [facility] Mean Corpuscular Volume 96.5 80.0 - 98.0 fL [facility] Mean Corpuscular Hemoglobin 30.2 27.0 - 33.0 pg [facility] Mean Corpuscular HGB Conc 31.3 31.0 - 36.0 g/dl [facility] Red Cell Distribution Width 14.6 11.0 - 16.0 % [facility] Platelet Count 109(L) 160 - 400 X10*3/uL [facility] Mean Platelet Volume 10.8 9.4 - 12.4 fL [facility] NRBC Pct Auto 0.0 0.0 - 0.2 /100WBC [facility] NRBC Abs Auto 0.000 0.0 - 0.012 X10*3/uL [facility] 06/26/2025 8:09 AM EDT 06/26/2025 10:58 AM EDT us Generic External Data Provider LAB BLOOD ORDERAB LES Final Result [facility] [address] [place] [phone] * (ABNORMAL) Basic Metabolic Panel (06/26/2025 8:09 AM EDT) Pathologist [facility] Sodium 141 135 - 145 mmol/L [facility] Potassium 3.6 3.3 - 5.1 mmol/L [facility] Chloride 111(H) 96 - 108 mmol/L [facility] Carbon Dioxide 22 22 - 29 mmol/L [facility] Anion Gap 12 12 - 20 [facility] Urea Nitrogen (BUN) 16 9 - 16 mg/dL [facility] Creatinine, Serum 1.90(H) 0.5 - 1.4 mg/dL [facility] Estimated Glomerular Filt Rate 34 [facility] Comment:Chronic Kidney Disea se: Estimated GFR < 60 mL/min/[id number] Kidney Disease: Estimated GFR < 15 mL/min/1.73m2 Glucose 85 60 - 115 mg/dL [facility] Calcium 8.8 8.4 - 10.2 mg/dL [facility] 06/26/2025 8:09 AM EDT 06/26/2025 10:58 AM EDT us Generic External Data Provider LAB BLOOD ORDERAB LES Final Result [facility] [address] [place] [phone] [phone] * (ABNORMAL) Comprehensive Metabolic Panel (05/03/2025 8:16 AM EDT) Sodium 140 135 - 145 mmol/L [facility] Potassium 4.1 3.3 - 5.1 mmol/L [facility] Chloride 111(H) 96 - 108 mmol/L [facility] Carbon Dioxide 22 22 - 29 mmol/L [facility] Anion Gap 11(L) 12 - 20 [facility] Urea Nitrogen (BUN) 21(H) 9 - 16 mg/dL [facility] Creatinine, Serum 2.00(H) 0.5 - 1.4 mg/dL [facility] Estimated Glomerular Filt Rate 32 [facility] Comment:Chronic Kidney Disea se: Estimated GFR < 60 mL/min/1.85i8Wfiebk Kidney Disease: Estimated GFR < 15 mL/min/1.73m2 Glucose 87 60 - 115 mg/dL [facility] Calcium 9.0 8.4 - 10.2 mg/dL [facility] Bilirubin, Total 0.9 0.0 - 1.0 mg/dL [facility] Aspartate Amino Transferase 24 5 - 37 U/L [facility] Alanine Aminotransferase 18 0 - 40 U/L [facility] Total Protein 6.5 6.5 - 8.0 g/dL [facility] Albumin Level 4.0 3.5 - 5.0 g/dL [facility] Alkaline Phosphatase 110 39 - 117 U/L [facility] Blood Venous blood specimen / Unknown 05/03/2025 8:16 AM EDT 05/03/2025 11:27 AM EDT us Pedro Julian MD LAB BLOOD ORDERABLES Final Result Performing Organization Address City/State/[facility] Co de Phone Number [facility] [address] [place] [phone] * XR Lumbar Spine 2-3 Views (04/17/2025 1:24 PM EDT) Anatomical Region Laterality Modality Spine, L-spine Radiographic Micaela ging 04/17/2025 1:24 PM EDT Narrative 04/17/2025 2:57 PM EDT [address] [address] XRay Report Signed Patient: Jamie Carpio MR#: [id number] : 1945 Acct:[id number] Age/Sex: 80 / M ADM Date: 04/17/25 Loc: HO.HHCX Attending Dr: Pedro Webber MD Ordering Physician: Pedro Webber MD Date of Service: 04/17/25 Procedure(s): XR lumbar spine 2-3V Accession Number(s): [id number] cc: Pedro Webber MD EXAMINATION: XR LUMBOSACRAL [...] 04/17/25 1454 DD/ 1324 TD/TT: 04/17/25 1400 Limb Driver: Procedure Note Donotuseinterpreter, Image - 04/17/[address] [address] XRay Report Signed Patient: Rik Carpio#: [id number] : 6Acct:[id number] Age/Sex: 80 / MADM Date: 04/17/25 Loc: HO.HHCX Attending Dr: Pedro Webber MD Ordering Physician: Pedro Webber MD Date of Service: 04/17/25 Procedure(s): XR lumbar spine 2-3V Accession Number(s): [id number] cc: Pedro Webber MD EXAMINATION: XR LUMBOSACRAL [...] 04/17/25 1454 DD/ 1324 TD/TT: 04/17/25 1400 Limb Driver: us Pedro Julian MD IMG XR PROCEDURES Fin al Result * (ABNORMAL) Lipid Panel, Standard (01/16/2025 9:13 AM EDT) Triglycerides 40 <150 mg/dL [facility] Comment:Desirable Triglyceri de: less than 150 mg/dLBorderline High Triglyceride 150-199 mg/dLHigh Triglyceride: 200-499 mg/dLVery High Triglyceride: greater than or equal to 5OO mg/dL Cholesterol 93 <200 mg/dL [facility] Comment:Desirable Cholestero l: less than 200 mg/dLBorderline High Cholesterol: 200-239 mg/dLHigh Cholesterol: greater than 239 mg/dL LDL Cholesterol Calculated 58 <100 mg/dL [facility] Comment:Desirable LDL: less than 100 mg/dLNear Optimal/Above Optimal LDL: 110- 129 mg/dLBorderline High LDL: 130-159 mg/dLHigh LDL: 160-189 mg/dLVery High LDL: greater than or equal to 190 mg/dL HDL Cholesterol 27(L) >40 mg/dL [facility] Comment:Desirable HDL: great er than 40 mg/dL Note: This HDL assay may give artificially low results in patients with liver disease. Blood Venous blood specimen / Unknown 01/16/2025 9:13 AM EDT 01/16/2025 11:29 AM EDT us Pedro Julian MD LAB BLOOD ORDERABLES Final Result [facility] [address] [place] [address] [phone] * BI Mammogram Diagnostic Tomosynthesis Bilateral (04/11/2024 3:15 PM EDT) Anatomical Region Laterality Modality Breast Bilateral Mammography 04/11/2024 3:15 PM EDT Narrative 04/11/2024 4:59 PM EDT [facility] [address] [place] [address] Mammography Report Signed Patient: Jamie Carpio MR#: [id number] : 1945 Acct:[id number] Age/Sex: 79 / M ADM Date: 04/11/24 Loc: HO.MAMMO Attending Dr: Pedro Webber MD Ordering Physician: Pedro Webber MD Resu lts: 2Benign Findings Date of Service: 04/11/24 Follow Up: 1 Year From Orig ina Mammogram Procedure(s): MM tomosynthesis diagnostic BI Accession Number(s): [id number] cc: Pedro Webber MD EXAMINATION: MM DIAGNOSTIC [...] in OV> 04/11/24 1654 DD/ 1515 TD/TT: Limb Driver: Procedure Note Donotuseinterpreter, Image - 04/11/2024 [facility] [address] [place], [place] [address] Mammography Report Signed Patient: Jaime CarpioR#: [id number] : 6Acct:[id number] Age/Sex: 79 / MADM Date: 04/11/24 Loc: HO.MAMMO Attending Dr: Pedro Webber MD Ordering Physician: Pedro Webber MDResu lts: 2Benign Findings Date of Service: 04/11/24Follow Up: 1 Year From [facility] Mammogram Procedure(s): MM tomosynthesis diagnostic BI Accession Number(s): [id number] cc: Pedro Webber MD EXAMINATION: MM DIAGNOSTIC [...] in OV> 04/11/24 1654 DD/ 1515 TD/TT: Limb Driver: Pedro Julian MD IMG BI PROCEDURES Fin al Result * HEPATITIS C AB W/REFL TO HCV RNA, QN, PCR (12/24/2021 8:24 AM EST) HEPATITIS C ANTIBODY NON-REACT SIL NON-REACT SIL [facility] INDEX 0.01 <1.00 [facility] Comment: HCV antibody was non-reactive. There is no laboratory evidence of HCV infection. In most cases, no further action is required. However, if recent HCV exposure is suspected, a test for HCV RNA (test code 13888) is suggested. For additional information please refer to http://education.Imprivata/faq/CLA41t1 (This link is being provided for informational/ educational purposes only.) 12/24/2021 8:2 4 AM EST Pedro Julian MD HISTORICAL/NON ORDERA BLE LABS Final Result [facility] [address] from Last 3 Months or Most Recently Relevant to Health Maintenance Insurance [facility] OPTIONS (O D-SNP) [employer]ATHLE[employer]TOINE [id number] Care Teams Tourism Radio Presenter Relationship Specialty Start Date End Date Pedro Pulliam MD [address] [place] [address] PCP - General Internal Medicine 09/10/14 Niko Salamanca MD [address] [place] [address] Nephrology 01/16/25 Summer Wills MD [address] [place] [phone] Hematology and Oncology 06/27/25
--- OUTSIDE RECORDS SUMMARY | 2025-07-04 13:36 | XMS_ITS | Encounter Summary ---
Author Organization [facility] Address [address] [place] [address] Phone Care Team Providers Care Investigator Utility Bill Complaints Name Role Phone Unavailable Primary Care Provider Unavailabl e Encounter Details Date Type Department Care Team (Late st Contact Info) Description 10/28/2018 Ancillary Orders [facility] [address] [facility] 3rd Floor, [address] [place], [place] [phone] Felton Triana MD [address] [place] [address] [email or web address] Social History Tobacco Use Types Packs/Day Years Used Date Smoking Tobacco: Never Assessed Sex and Gender Information Value Date Recorded Sex Assigned at Not on file Legal Sex Male 2:41 PM EST Gender Identity Not on file Sexual Orientation Not on file documented as of this encounter Plan of Treatment Not on file documented as of this encounter Visit Diagnoses Not on filedocumented in this encounter Additional Source Comments The information contained in this document represents components of the legal health record. It is not the complete legal health record.[facility]
--- OUTSIDE RECORDS SUMMARY | 2025-07-04 13:36 | XMS_ITS | Encounter Summary ---
Author Organization [employer] Address [address] [facility] 7t [place] [address] Care Team Providers Care Main Entree Cook And Cashier Name Role Phone Pedro Pulliam MD Primary Care Provide r Niko Salamanca MD Unavailable [phone] Summer Wills MD Unavailable [phone] Reason for Visit * Reason Onset Date Comments OV 03/1602/17/2024 Encounter Details Date Type Department Care Team (Late st Contact Info) Description 02/17/2024 Telephone [facility] [address] [place], [place] [phone] Pedro Pulliam MD [address] [place], [place] [phone] OV 03/16 Social History Tobacco Use Types Packs/Day Years Used Date Smoking Tobacco: Never Passive Smoke Exposure: Never Smokeless Tobacco: Never Depression Answer Date Recorded Patient Health Questionnaire-9 Score 1 09/23/2023 Patient Health Questionnaire-9 Score 1 09/23/2023 Last PHQ-9: Questionnaire Data Not on file 1 11/23/2022 Housing Stability Answer Date Recorded What is your housing situation today? I have prashantchaz reid 09/23/[address] you [...] any questions you can contact pt at [phone]. documented in this encounter Plan of Treatment Upcoming Encounters Date Type Department Care Team (Late st Contact Info) Description 07/17/2025 2:00 PM EDT Office Visit [facility] [address] [place] [address] Pedro Pulliam MD [address] [place] [address] documented as of this encounter Visit Diagnoses Not on filedocumented in this encounter Additional Health Concerns Assessment Noted Time PHQ-9 Depression Total Score: 1 09/23/20 23 1:21 PM EST documented as of this encounter Care Teams Main Entree Cook And Cashier Relationship Specialty Start Date End Date Pedro Pulliam MD [address] [place] [address] PCP - General Internal Medicine 09/10/14 Niko Salamanca MD [address] [place] [address] Drive [address] [place] [address] Nephrology 01/16/25 Summer Wills MD [address] [place] [address] Hematology and Oncology 06/27/25 documented as of this encounter
--- OUTSIDE RECORDS SUMMARY | 2025-07-04 13:36 | XMS_ITS | Encounter Summary ---
Author Organization [employer] [facility] Address [address] [place] [address] 7t [place] [address] Care Team Providers Care Seed District Sales Manager Name Role Phone Pedro Pulliam MD Primary Care Provide r Niko Salamanca MD Unavailable [phone] Summer Wills MD Unavailable [phone] Encounter Details Date Type Department Care Team (Late st Contact Info) Description 05/31/2023 Orders Only [facility] [address] [place] [phone] Shanita Pfeiffer LPN Social History Tobacco Use [...] Description 07/17/2025 2:00 PM EDT Office Visit [facility] [address] [place] [phone] Pedro Pulliam MD [address] [place] [address] documented as of this encounter Visit Diagnoses Not on filedocumented in this encounter Care Teams Seed District Sales Manager Relationship Specialty Start Date End Date Pedro Pulliam MD [address] [place] [phone] PCP - General Internal Medicine 09/10/14 Niko Salamanca MD [address] [place] [address] Nephrology 01/16/25 Summer Wills MD [address] [place] [address] Hematology and Oncology 06/27/25 documented as of this encounter
--- OUTSIDE RECORDS SUMMARY | 2025-07-04 13:36 | XMS_ITS | Clinical Summary ---
Author Organization [facility] Address [address] [address] Care Team Providers Care Orchardist Name Role Phone Pedro Snow MD Primary [...] age to complete this topic Care Teams Orchardist Relationship Specialty Start Date End Date Pedro Snow MD PCP - General 11/18/20
--- OUTSIDE RECORDS SUMMARY | 2025-07-04 13:36 | XMS_ITS | Patient Health Record ---
Author Organization [facility] Address [address] [place] [address] Care Team Providers Care Deburring And Tooling Machine Operator Name Role Phone Gwendolyn Julian MD, Pedro Primary Care Provide r Unavailable Favian Hardin Jr Unavailable [phone] Reason For Referral No Information Plan Of Treatment No Information Insurance Providers Payer Name Payer Address Payer Phone Subscriber Number Group Number Insured Name Patient Relationship to Insured Coverage Start Date Coverage End Date MEDICARE OF [facility] [address] [facility] [place] [id number] [phone] [id number] LILY RINCON Self - patient is the insured
--- OUTSIDE RECORDS SUMMARY | 2025-07-04 13:36 | XMS_ITS | Encounter Summary ---
Author Organization [employer] Address [address] [facility] 7t [place] [address] Care Team Providers Care Business Excellence Manager Name Role Phone Pedro Pulliam MD Primary Care Provide r Niko Salamanca MD Unavailable [phone] Summer Wills MD Unavailable [phone] Encounter Details Date Type Department Care Team (Late st Contact Info) Description 01/06/2023 Orders Only [facility] MED & PEDS [address] [place] [address] Shira Castano LPN Social History Tobacco Use [...] Description 07/17/2025 2:00 PM EDT Office Visit [facility] MEDICINE [address] [place] [address] Pedro Pulliam MD [address] [place], [place] [phone] documented as of this encounter Visit Diagnoses Not on filedocumented in this encounter Care Teams Business Excellence Manager Relationship Specialty Start Date End Date Pedro Pulliam MD 230 [place], [place] [phone] PCP - General Internal Medicine 09/10/14 Niko Salamanca MD [address] [place] [address] [address] [place] [address] Nephrology 01/16/25 Summer Wills MD [address] [place] [address] Hematology and Oncology 06/27/25 documented as of this encounter
--- OUTSIDE RECORDS SUMMARY | 2025-07-04 13:36 | XMS_ITS | Clinical Summary ---
Author Organization [facility] Address [address] [address] Phone Care Team Providers Care Hostess Host Name Role Phone Unavailable Primary Care Provider Unavailabl e Social History Tobacco Use Types Packs/Day Years Used Date Smoking Tobacco: Never Assessed Education Answer Date Recorded Are you interested in more education? Not on anisa e 03/05/2023 Are you concerned about learning? Not on file 03/05/2023 No 03/05/2023 No 03/05/2023 Digital Access Answer Date Recorded No 04/06/2023 No 04/06/2023 No 04/06/2023 Reliable internet access at home? Not on file 04/06/2023 Device with a working camera? Not on file Sex and Gender Information Value Date Recorded Sex Assigned at Not on file Legal Sex Male 2:41 PM EST Gender Identity Not on file Sexual Orientation Not on file Plan of Treatment Not on file Medical Devices Not on file Insurance [facility]AC[facility] ANTOINE W[place] [id number] [place] [address] MEDICARE REPLACEMENT [facility] MEDICARE REPLACEMENT [facility] MEDICARE [place] [address] [place] [address] MEDICARE REPLACEMENT [facility] MEDICARE REPLACEMENT [facility] MEDICARE REPLACEMENT [facility] MEDICARE REPLACEMENT Additional Source Comments The information contained in this document represents components of the legal health record. It is not the complete legal health record.[facility]
--- OUTSIDE RECORDS SUMMARY | 2025-07-04 13:36 | XMS_ITS | Encounter Summary ---
Author Organization [employer] [facility] Address [address] [place] [address] 7t [place] [address] Care Team Providers Care Proposal Consultant Name Role Phone Pedro Pulliam MD Primary Care Provide r Niko Salamanca MD Unavailable [phone] Summer Wills MD Unavailable [phone] Encounter Details Date Type Department Care Team (Late st Contact Info) Description 02/25/2023 Orders Only [facility] MEDICINE [address] [place] [address] Shanita Pfeiffer LPN Social History Tobacco Use [...] Description 07/17/2025 2:00 PM EDT Office Visit [facility] [address] [place] [address] Pedro Pulliam MD 230 [place] [address] documented as of this encounter Visit Diagnoses Not on filedocumented in this encounter Care Teams Proposal Consultant Relationship Specialty Start Date End Date Pedro Pulliam MD [address] [place] [address] [phone] PCP - General Internal Medicine 09/10/14 Niko Salamanca MD [address] [facility] [address] [facility] [address] [place] [address] Nephrology 01/16/25 Summer Wills MD [address] [place] [address] Hematology and Oncology 06/27/25 documented as of this encounter
--- OUTSIDE RECORDS SUMMARY | 2025-07-04 13:36 | XMS_ITS | Encounter Summary ---
Author Organization [employer] Address [address] [facility] 7t [place] [address] Care Team Providers Care Sales Engineer Name Role Phone Pedro Pulliam MD Primary Care Provide r Niko Salamanca MD Unavailable [phone] Summer Wills MD Unavailable [phone] Reason for Visit * Reason Comments Med Refill Encounter Details Date Type Department Care Team (Late st Contact Info) Description 06/02/2024 Refill [facility] MED[facility]INE [address] [place], [place] [phone] Pedro Pulliam MD 230 [place], [place] [phone] Primary hypertension; Stage 3 chronic kidney disease, [...] 2:00 PM EDT Office Visit [facility] [address] [place] [address] Pedro Pulliam MD 230 [place] [address] documented as of this encounter Visit Diagnoses Diagnosis Primary hypertension Unspecified essential hypertension Stage 3 chronic kidney disease, unspecified whether stage 3a or 3b CKD ([facility]) Nonrheumatic tricuspid valve regurgitation documented in this encounter Additional Health Concerns Assessment Noted Time PHQ-9 Depression Total Score: 1 09/23/20 23 1:21 PM EST documented as of this encounter Care Teams Sales Engineer Relationship Specialty Start Date End Date Pedro Pulliam MD 230 [place] [address] PCP - General Internal Medicine 09/10/14 Niko Salamanca MD [address] [facility] [address] [place] [address] Nephrology 01/16/25 Summer Wills MD [address] [place] [address] Hematology and Oncology 06/27/25 documented as of this encounter
--- OUTSIDE RECORDS SUMMARY | 2025-07-04 13:36 | XMS_ITS | Encounter Summary ---
Author Organization [employer] Address 75 [facility] 7t [place] [address] Care Team Providers Care Digital Advertising Analyst Name Role Phone Pedro Pulliam MD Primary Care Provide r Niko Salamanca MD Unavailable [phone] Summer Wills MD Unavailable [phone] Reason for Visit * Reason Onset Date Comments Med Refill 2023 Encounter Details Date Type Department Care Team (Late st Contact Info) Description 2023 Refill [facility] 230 [place], [place] [phone] Pedro Pulliam MD 230 [place], [place] [phone] Atrial fibrillation, unspecified type (CMS/HCC) (Primary Dx) [...] Description 07/17/2025 2:00 PM EDT Office Visit [facility] [address] [place] [address] Pedro Pulliam MD [address] [place] [address] documented as of this encounter Visit Diagnoses Diagnosis Atrial fibrillation, unspecified type (CMS/HCC)- Primary documented in this encounter Care Teams Digital Advertising Analyst Relationship Specialty Start Date End Date Pedro Pulliam MD 230 [place] [address] PCP - General Internal Medicine 09/10/14 Niko Salamanca MD [address] [facility] [address] [place] [address] Nephrology 01/16/25 Summer Wills MD [address] [place] [address] Hematology and Oncology 06/27/25 documented as of this encounter
--- OUTSIDE RECORDS SUMMARY | 2025-07-04 13:36 | XMS_ITS | Encounter Summary ---
Author Organization [facility] Address [address] [place] [address] Phone Care Team Providers Care Fiber Technician Name Role Phone Unavailable Primary Care Provider Unavailabl e Encounter Details Date Type Department Care Team (Late st Contact Info) Description 10/28/2018 Ancillary Orders [facility] [address] [place] [address] [place] [address] Felton Triana MD [address] [place] [address] [email or web address] Bradycardia Social History Tobacco Use Types Packs/Day [...] It is not the complete legal health record.[facility]
--- OUTSIDE RECORDS SUMMARY | 2025-07-04 13:36 | XMS_ITS | Encounter Summary ---
Author Organization [employer] Address [address] [facility] 7t [place] [address] Care Team Providers Care Toe Closing Machine Tender Name Role Phone Pedro Pulliam MD Primary Care Provide r Niko Salamanca MD Unavailable [phone] Summer Wills MD Unavailable [phone] Encounter Details Date Type Department Care Team (Late st Contact Info) Description 02/01/2023 Orders Only [facility] MED & PEDS [address] [place] [address] Shira Castano LPN Social History Tobacco Use [...] Description 07/17/2025 2:00 PM EDT Office Visit [facility] MEDICINE 230 [place] [address] Pedro Pulliam MD 230 [place], [place] [phone] documented as of this encounter Visit Diagnoses Not on filedocumented in this encounter Care Teams Toe Closing Machine Tender Relationship Specialty Start Date End Date Pedro Pulliam MD 230 [place], [place] [phone] PCP - General Internal Medicine 09/10/14 Niko Salamanca MD [address] [place] [address] [address] [place] [address] Nephrology 01/16/25 Summer Wills MD [address] [place] [address] Hematology and Oncology 06/27/25 documented as of this encounter
--- OUTSIDE RECORDS SUMMARY | 2025-07-04 13:36 | XMS_ITS | Clinical Summary ---
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
[2025-07-05 08:08] LABS: Prothrombin Time Whole Bld POC 53.6 sec (11.1-13.5); ~PT, ~INR - Anti Coag Clinic 4.5 (0.9-1.1)
== END 2025-07-04 13:32 | disposition home or self-care (01) ==
LOC: HO.ACS 13:07
PROVIDERS: PCP Internal Medicine; Visit Provider Internal Medicine Medical Oncology
DX: Z79.01 Long term (current) use of anticoagulants (principal)

== ENCOUNTER → 2025-07-04 13:07 | Outpatient (BNVA) | payer OTHER, SELFPAY | PROVIDERS: PCP Internal Medicine; Visit Provider Internal Medicine Medical Oncology | DX: I48.0 Paroxysmal atrial fibrillation (principal); Z79.01 Long term (current) use of anticoagulants; Z51.81 Encounter for therapeutic drug level monitoring | CPT/HCPCS: 85610; 99211 ==

== ENCOUNTER 2025-07-11 13:02 | Outpatient (AMB) | payer OTHER, SELFPAY ==
[2025-07-11 13:07] LABS: Prothrombin Time Whole Bld POC 34.0 sec (11.1-13.5); ~PT, ~INR - Anti Coag Clinic 2.8 (0.9-1.1)
--- NOTE | 2025-07-11 13:14 | MHC.OFFVISCO ---
Intake Intake Visit Reasons: Anticoagulation Allergies No Known Allergies (No Known Allergies*) Allergy (Verified 07/11/25 13:03) Medication List - Last Reconciled 07/11/25 by Neena Boyce RN amlodipine 5 mg PO DAILY atorvastatin 80 mg PO BEDTIME carbamide peroxide 6.5% (Ear Wax Removal Drops) 5 drps otic (ear) left BID cholecalciferol (vitamin D3) 25 mcg PO DAILY dorzolamide-timolol 22.3-6.8 mg/mL 22.3 drps ophthalmic (eye) BID ferrous sulfate (FeroSul) 1 tab PO DAILY furosemide 40 mg PO DAILY iron sucrose (Venofer) 200 mg IV Q3D octreotide acetate (Mycapssa) 20 mg PO DAILY Held on 11/20/22. Instructions: rejected by insurance terazosin 5 mg PO BEDTIME 90 days travoprost 0.004% 1 drp ophthalmic (eye) BEDTIME warfarin 5 mg See Protocol PO DAILY Nursing Note NO CP,FALLS,MED CHANGES OR SX OF BLEEDING. PT.STATTES NTHAT HE IS OFTEN SLIGHTLY SOB AT NIGHT, AND IS STILL FATIGUED. TO HAVE SCHEDULED CBC TOMORROW IN HEMATOLOGY. IN MEANTIME WILL CONTINUE PRESENT WARFARIN DOSING AND FOLLOW-UP IN 2 WEEKS GOOD UNDERSTANDING OF DOSING INSTR. 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
--- OUTSIDE RECORDS SUMMARY | 2025-07-11 15:21 | XMS_ITS | Clinical Summary ---
Author Organization [facility] Address [address] [address] Care Team Providers Care Chip Separator Name Role Phone Pedro Snow MD Primary [...] age to complete this topic Care Teams Chip Separator Relationship Specialty Start Date End Date Pedro Snow MD PCP - General 11/18/20
--- OUTSIDE RECORDS SUMMARY | 2025-07-11 15:21 | XMS_ITS | Clinical Summary ---
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
--- OUTSIDE RECORDS SUMMARY | 2025-07-11 15:21 | XMS_ITS | Encounter Summary ---
Author Organization [facility] Address [address] [place] [address] Phone Care Team Providers Care Rn Pacu Name Role Phone Unavailable Primary Care Provider Unavailabl e Encounter Details Date Type Department Care Team (Late st Contact Info) Description 10/28/2018 Ancillary Orders [facility] [address] [facility] 3rd Floor, [address] [place], [place] [phone] Felton Triana MD [address] [place] [address] [email or web address] Social History Tobacco Use Types Packs/Day Years [...] It is not the complete legal health record.[facility]
--- OUTSIDE RECORDS SUMMARY | 2025-07-11 15:21 | XMS_ITS | Encounter Summary ---
Author Organization [facility] Address [address] [place] [address] Phone Care Team Providers Care Vice Principal Name Role Phone Unavailable Primary Care Provider Unavailabl e Encounter Details Date Type Department Care Team (Late st Contact Info) Description 10/28/2018 Ancillary Orders [facility] [address] [place] [address] [place] [address] Felton Triana MD [address] [place] [address] [email or web address] Bradycardia Social History Tobacco Use Types Packs/Day [...] It is not the complete legal health record.[facility]
--- OUTSIDE RECORDS SUMMARY | 2025-07-11 15:22 | XMS_ITS | Patient Health Record ---
Author Organization [facility] Address [address] [place] [address] Care Team Providers Care Flume Ride Operator Name Role Phone Gwendolyn Julian MD, Pedro Primary Care Provide r Unavailable Favian Hardin Jr Unavailable Reason For Referral No Information Plan Of Treatment No Information Insurance Providers Payer Name Payer Address Payer Phone Subscriber Number Group Number Insured Name Patient Relationship to Insured Coverage Start Date Coverage End Date MEDICARE OF [facility] [address] [facility] [place] [id number] [phone] [id number] ILLY RINCON Self - patient is the insured
--- OUTSIDE RECORDS SUMMARY | 2025-07-11 15:22 | XMS_ITS | Clinical Summary ---
Author Organization [facility] Address [address] [address] Phone Care Team Providers Care Associate Music Professor Name Role Phone Unavailable Primary Care Provider [...] file Medical Devices Not on file [facility] ANTOINE WANG [id number] [place] [address] RE[address] [facility] MEDICARE REPLACEMENT [facility] MEDICARE REPLACEMENT [place] [address] MED[address] REPLAC[address] [facility] MEDICARE REPLACEMENT [facility] MEDICARE REPLACEMENT [facility] MEDICARE REPLACEMENT Additional Source Comments The information contained in this document represents components of the legal health record. It is not the complete legal health record.[facility]
== END 2025-07-11 13:17 | disposition home or self-care (01) ==
LOC: HO.ACS 13:02
PROVIDERS: PCP Internal Medicine; Visit Provider Internal Medicine Medical Oncology
DX: Z79.01 Long term (current) use of anticoagulants (principal)

== ENCOUNTER → 2025-07-11 13:02 | Outpatient (BNVA) | payer OTHER, SELFPAY | PROVIDERS: PCP Internal Medicine; Visit Provider Internal Medicine Medical Oncology | DX: I48.0 Paroxysmal atrial fibrillation (principal); Z79.01 Long term (current) use of anticoagulants; Z51.81 Encounter for therapeutic drug level monitoring | CPT/HCPCS: 85610; 99211 ==

== ENCOUNTER 2025-07-25 09:20 | Outpatient (AMB) | payer OTHER, SELFPAY ==
[2025-07-25 09:27] LABS: Prothrombin Time Whole Bld POC 39.6 sec (11.1-13.5); ~PT, ~INR - Anti Coag Clinic 3.3 (0.9-1.1)
--- NOTE | 2025-07-25 09:37 | MHC.OFFVISCO ---
Intake Intake Visit Reasons: Anticoagulation Allergies No Known Allergies (No Known Allergies*) Allergy (Verified 07/25/25 09:23) Medication List - Last Reconciled 07/25/25 by Neena Boyce RN amlodipine 5 mg PO DAILY atorvastatin 80 mg PO BEDTIME carbamide peroxide 6.5% (Ear Wax Removal Drops) 5 drps otic (ear) left BID cholecalciferol (vitamin D3) 25 mcg PO DAILY dorzolamide-timolol 22.3-6.8 mg/mL 22.3 drps ophthalmic (eye) BID ferrous sulfate (FeroSul) 1 tab PO DAILY furosemide 40 mg PO DAILY iron sucrose (Venofer) 200 mg IV Q3D octreotide acetate (Mycapssa) 20 mg PO DAILY Held on 11/20/22. Instructions: rejected by insurance terazosin 5 mg PO BEDTIME 90 days travoprost 0.004% 1 drp ophthalmic (eye) BEDTIME warfarin 5 mg See Protocol PO DAILY Nursing Note NO CP,SOB,DIET/MED CHANGES OR SX OF BLEEDING. PT. TO HAVE H&H AFTER ACS TODAY. WGT.LOSS IS OBVIOUS, AND PT.STATES THAT HIS APPETITE IS ONLY FAIR. HOLD WARFARIN TODAY THEN RESUME USUAL DOSE AND FOLLOW-UP IN 2 WEEKS GOOD UNDERSTANDING VERB. 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
--- OUTSIDE RECORDS SUMMARY | 2025-07-25 10:57 | XMS_ITS | Encounter Summary ---
Author Organization [employer] Address [address] 7t [place] [address] Care Team Providers Care Assembler Gold Frame Name Role Phone Pedro Pulliam MD Primary Care Provide r Niko Salamanca MD Unavailable [phone] Summer Wills MD Unavailable Encounter Details Date Type Department Care Team (Late st Contact Info) Description 07/25/2025 Orders Only GENERIC EXTERNAL DATA DEPARTMENT Provider, [...] on file documented as of this encounter Procedures Procedure Name Priority Date/Time Associated Diagnosis Comments PROTHROMBIN TIME WHOLE BLD POC Routine 07/25/2025 9:25 AM EDT ~PT, ~INR - ANTI COAG CLINIC Routine 07/25/2025 9:25 AM EDT documented in this encounter Results * (ABNORMAL) PROTHROMBIN TIME WHOLE BLD POC (07/25/2025 9:25 AM EDT) Protime 39.6(H) 11.1 - 13.5 sec [facility] 07/25/2025 9:25 AM EDT 07/25/2025 9:27 AM EDT us Generic External Data Provider LAB BLOOD ORDERAB LES Final Result Performing Organization Address City/State/[facility] Co de Phone Number [facility] [address] [place] [phone] * (ABNORMAL) ~PT, ~INR - ANTI COAG CLINIC (07/25/2025 9:25 AM EDT) Prothrombin Time INR 3.3(H) 0.9 - 1.1 [facility] Comment:METER #: [id number] TERNATIONAL NORMALIZED RATIO (INR) REFERENCE RANGES Reference RangeFor patients not on anticoagulant therapy: 0.9 - 1.1INR ranges for oral anticoagulanttherapy:For prevention and treatment of venous thrombosis and pulmonary embolism: 2.0 - 3.0For acute myocardial infarction with aspirin therapy: 2.0 - 3.0For acute myocardial infarction without aspirin therapy: 3.0 - 4.0For patients with mechanical prosthetic heart valves: 2.5 - 3.5 07/25/2025 9:25 AM EDT 07/25/2025 9:27 AM EDT us Generic External Data Provider LAB BLOOD ORDERAB LES Final Result [facility] [address] [place] [address] [phone] documented in this encounter Visit Diagnoses Not on filedocumented in this encounter Additional Health Concerns Assessment Noted Time PHQ-9 Depression Total Score: 0 10/17/20 24 1:50 PM EST documented as of this encounter Care Teams Assembler Gold Frame Relationship Specialty Start Date End Date Pedro Pulliam MD [address] [place] [address] PCP - General Internal Medicine 09/10/14 Niko Salamanca MD [address] [place] [address] Nephrology 01/16/25 Summer Wills MD [address] [place] [address] Hematology and Oncology 06/27/25 documented as of this encounter
--- OUTSIDE RECORDS SUMMARY | 2025-07-25 10:57 | XMS_ITS | Encounter Summary ---
Author Organization [facility] Address [address] [facility] [address] [place] [address] Phone Care Team Providers Care Director Of Outside Sales Name Role Phone Unavailable Primary Care Provider Unavailabl e Encounter Details Date Type Department Care Team (Late st Contact Info) Description 10/28/2018 Ancillary Orders [facility] [address] [place] [address] [place] [address] Felton Triana MD [address] [place] [address] [email or web address] Bradycardia Social History Tobacco Use Types [...] It is not the complete legal health record.[facility]
--- OUTSIDE RECORDS SUMMARY | 2025-07-25 10:57 | XMS_ITS | Encounter Summary ---
Author Organization [employer] Address [address] [facility] 7t [place] [address] Care Team Providers Care Otr Tanker Truck Driver Name Role Phone Pedro Pulliam MD Primary Care Provide r Niko Salamanca MD Unavailable [phone] Summer Wills MD Unavailable [phone] Encounter Details Date Type Department Care Team (Late st Contact Info) Description 02/01/2023 Orders Only [facility]S [address] [place] [address] Shira Castano LPN Social History Tobacco Use [...] on filedocumented in this encounter Care Teams Otr Tanker Truck Driver Relationship Specialty Start Date End Date Pedro Pulliam MD 230 [place] [address] PCP - General Internal Medicine 09/10/14 Niko Salamanca MD [address] [place] [address] Nephrology 01/16/25 Summer Wills MD [address] [place] [address] Hematology and Oncology 06/27/25 documented as of this encounter
--- OUTSIDE RECORDS SUMMARY | 2025-07-25 10:57 | XMS_ITS | Encounter Summary ---
Author Organization [employer] Address [address] [facility] 7t [place] [address] Care Team Providers Care Veneer Drier Tailer Name Role Phone Pedro Pulliam MD Primary Care Provide r Niko Salamanca MD Unavailable [phone] Summer Wills MD Unavailable [phone] Reason for Visit * Reason Comments Med Refill Encounter Details Date Type Department Care Team (Late st Contact Info) Description 06/02/2024 Refill [facility] 230 [place], [place] [phone] Pedro Pulliam MD 230 [place], [place] [phone] Primary hypertension; Stage 3 chronic kidney disease, [...] documented as of this encounter Care Teams Veneer Drier Tailer Relationship Specialty Start Date End Date Pedro Pulliam MD 230 [place] [address] PCP - General Internal Medicine 09/10/14 Niko Salamanca MD [address] [place] [address] Nephrology 01/16/25 Summer Wills MD [address] [place] [address] Hematology and Oncology 06/27/25 documented as of this encounter
--- OUTSIDE RECORDS SUMMARY | 2025-07-25 10:57 | XMS_ITS | Clinical Summary ---
Author Organization [email or web address] Address [address] [facility] 7[address] [place] [address] Care Team Providers Care Basket Braider Name Role Phone Pedro Pulliam MD Primary Care Provide r Niko Salamanca MD Unavailable [phone] Summer Wills MD Unavailable [phone] Allergies No known active allergies Medications [...] Active Problems Problem Noted Date Diagnosed Date Primary open angle glaucoma (POAG) of both eyes, indeterminate stage 07/17/2025 Assessment & Plan (07/17/2025 1:57 PM EDT): Under the care of Dr gonzalez, last seen 04/22/2025 Sciatica of left side 04/17/2025 Assessment & Plan (07/17/2025 2:06 PM EDT): Pt with c/o intermittent left sided low back pain with radiation to left buttock and left leg, declines PT, cannot take NSAIDS Today pt tells me it resolved Previous work up included: XR lumbar spine 2-3V Mild dextroscoliosis. Multilevel degenerative disc disease and facet arthropathy. 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 Assessment & Plan (04/17/2025 1:43 PM EDT): Pt with c/o intermittent left sided low back pain with radiation to left buttock and left leg, declines PT, cannot take NSAIDS He says is not to bad will continue with tylenol alone Will obtain plain plain film KARINA (obstructive sleep apnea) 01/11/2025 Assessment & Plan (07/17/2025 2:05 PM EDT): Seen at the sleep center 10/26/2024 No longer using Cpap, pt tells me he could not tolerate it Assessment & Plan (01/11/2025 1:16 PM EST): Seen at the sleep center 10/26/2024 Using Cpap with good results Nonrheumatic tricuspid valve regurgitation 01/31 Assessment & Plan (02/01/2024 1:33 PM EDT): Under the care of Cardiology, last seen 09/2023 Currently on Furosemide 20 mg po BID Bilateral leg edema 02/01/2024 Assessment & Plan (07/17/2025 2:05 PM EDT): Intermittent Last ECHO: Tricuspid regurgitation and Pulm Htn, follows with Cardiology On lasix 40 mg in Am and 20 mg PM 4 months follow up Assessment & Plan (05/04/2024 2:21 PM EDT): [...] pt currently undergoing PT with good results. [facility] care 09/23/2023 Assessment & Plan (07/17/2025 2:10 PM EDT): PSA: 06/27/2025 5.6 under the caer of urology Dr melo Colonoscopy: Normal : Repeat 03/28 due to a Hx of a Tubular Adenoma, showed diverticulosis no source of bleed Vaccines: Tdap 04/24/2014, Pneumovax 12/2013, PCV 13: 08/22/2015 Zoster: 02/26/2015 Assessment & Plan (10/17/2024 1:55 PM EST): [...] kidney disease 04/18/2019 09/15/2023 Assessment & Plan (07/17/2025 1:53 PM EDT): Used to be under the care of Nephrology, last seen 05/08/2025 Last BMP Lab Results Component Value Date NA 141 06/26/2025 NA 140 05/03/2025 K 3.6 06/26/2025 K 4.1 05/03/2025 CL 111 (H) 06/26/2025 CL 111 (H) 05/03/2025 BUN 16 06/26/2025 BUN 21 (H) 05/03/2025 CREATININE 1.90 (H) 06/26/2025 CREATININE 2.00 (H) 05/03/2025 Plan: Continue to follow with Nephrology Assessment & Plan (04/17/2025 1:20 PM EDT): [...] Atrial fibrillation 02/08/2018 09/15/2023 Assessment & Plan (07/17/2025 1:56 PM EDT): Pt here for a follow up Has A.fib Chadsvasc 3 He is on Coumadin, under the care of the [facility]madin Clinic. Previous nuclear stress test was negative Pt has ongoing f/u at the coumadin clinic and cardiology ECHO 08/17/2024 no significant change from previous EF 50-55% last note from Cardiology 05/22/2025. Assessment & Plan (04/17/2025 1:22 PM EDT): [...] prostatic hyperplasia) 11/26/2015 09/15/2023 Assessment & Plan (07/17/2025 2:09 PM EDT): Under the care of Urology Dr Melo 04/03/2025 Hx of Benign prostatic hyperplasia Hx of elevated PSA He has a Hx of neg TRUS bx as well Last PSA 06/27/2025 5.6 Assessment & Plan (04/17/2025 1:25 PM EDT): [...] showed diverticulosis [place] [facility] [place] Mixed hyperlipidemia 08/13/2015 09/15/2023 [...] the past by his vascular surgeon at [facility] (Dr Lind) whose recommendation was conservative treatment, he saw NO role for any type of surgical intervention. He recommended to repeat the scan in 1 year and continue to take Asa 81 mg po daily. Pt was last seen by his cut out press operator at [facility] 09/14/2023 recommended repeat US and ECHO and 6 month follow up He is on Aspirin started by their office Last Carotid US on record from 02/11/2023 Hypertension 04/21/2012 09/15/2023 Assessment & Plan (07/17/2025 1:54 PM EDT): Pt here for a f/u BP stable He is on a regimen of: Norvasc 5 mg daily, and lasix 20 mg daily prescribed by Rn Paralegal. Off Lisinopril 40 mg po daily (stopped by [employer] 04/01) I had lowered his Lasix due to worsening renal function Pt developed some bilateral ankle edema due to Amlodipine Plan: Continue current regimen Most recent electrolytes, Bun and Creatinine Lab Results Component Value Date NA 141 06/26/2025 NA 140 05/03/2025 K 3.6 06/26/2025 K 4.1 05/03/2025 CL 111 (H) 06/26/2025 CL 111 (H) 05/03/2025 BUN 16 06/26/2025 BUN 21 (H) 05/03/2025 CREATININE 1.90 (H) 06/26/2025 CREATININE 2.00 (H) 05/03/2025 patient advised to adhere to a low sodium diet, encouraged about medication compliance, counseled about weight loss. 3 month f/u Assessment & Plan (04/17/2025 1:40 PM EDT): Pt here for a f/u BP stable He is on a regimen of: Norvasc 5 mg daily, and lasix 20 mg daily prescribed by Rn Paralegal. Pt is off Lisinopril 40 mg po daily (stopped by [employer] [facility] 04/01) I had recently lowered his Lasix [...] and lasix 20 mg daily prescribed by Rn Paralegal. I had recently lowered his Lasix due [...] and lasix 20 mg daily prescribed by Rn Paralegal. I had recently lowered his Lasix due [...] Am and 20 mg PM prescribed by Rn Paralegal. I had recently lowered his Lasix due [...] Am and 20 mg PM prescribed by Rn Paralegal. Pt developed some bilateral ankle edema due [...] Furosemide 20 mg po BID prescribed by Rn Paralegal. Pt developed some bilateral ankle edema due [...] Furosemide 20 mg po BID prescribed by Rn Paralegal. Pt developed some bilateral ankle edema due to Amlodipine Plan: Continue current regimen Most recent electrolytes, Bun and Creatinine done on: 12/24/2021 SCr 1.25 will repeat patient advised to adhere to a low sodium diet, encouraged about medication compliance, counseled about weight loss. 3 month f/u Gynecomastia 04/21/2012 09/15/2023 Assessment & Plan (07/17/2025 1:59 PM EDT): Here for a follow up Previous Mammogram showed: -There is moderate to severe RIGHT and [...] was seen by plastic surgeon who recommended Endocrine work up So far Testosterone normal, elevated FHS, LH and Estradiol, Normal Prolactin and Testicular US showed No tumor Previously referred to Endocrinology Assessment & Plan (04/17/2025 1:32 PM EDT): [...] clinical impression. Plan: Breast center referral at [facility] Assessment & Plan (02/01/2024 1:36 PM EDT): [...] Encounters Date Type Department Care Team Description 07/25/2025 Orders Only GENERIC EXTERNAL DATA DEPARTMENT Provider, Generic External Data 07/17/2025 2:00 PM EDT Office Visit [facility] [address] [place] [phone] Pedro Pulliam MD Primary hypertension (Primary Dx); Stage 3b chronic kidney disease (CMS/HCC); Longstanding persistent atrial fibrillation (CMS/HCC); Primary open angle glaucoma (POAG) of both eyes, indeterminate stage; Gynecomastia; Bilateral leg edema; KARINA (obstructive sleep apnea); Sciatica of left side; Benign prostatic hyperplasia with urinary frequency; Preventative health care 07/17/2025 Travel 07/16/2025 Telephone [facility] [address] [place] [phone] Pedro Pulliam MD chart prep 07/11/2025 Orders Only GENERIC EXTERNAL DATA DEPARTMENT Provider, Generic External Data 07/04/2025 Orders Only GENERIC EXTERNAL DATA DEPARTMENT Provider, Generic External Data 06/27/2025 Orders Only GENERIC EXTERNAL DATA DEPARTMENT Provider, Generic External Data 06/26/2025 Results Follow-Up [facility] [address] [facility] [place] [address] Avis Koenig MD CBC, Basic Metabolic Panel, PSA, Total With Reflex to PSA, Free 06/26/2025 Orders Only GENERIC EXTERNAL DATA DEPARTMENT Provider, Generic External Data 05/30/2025 Orders Only GENERIC EXTERNAL DATA DEPARTMENT Provider, Generic External Data 05/23/2025 Telephone [facility] [address] [place] [address] Pedro Pulliam MD Medication Question 05/21/2025 Refill [facility] [address] [place] [address] Avis Koenig MD Atrial fibrillation, unspecified type ([facility]) 05/17/2025 Refill [facility] [address] [place] [address] Avis Koenig MD Vitamin D deficiency 05/03/2025 Results Follow-Up [facility] [address] [facility] [place] [address] Pedro Pulliam MD Comprehensive Metabolic Panel 05/02/2025 [...] Sign Reading Time Taken Comments Blood Pressure 128/52 07/17/2025 1:43 PM EDT Pulse 55 07/17/2025 1:43 PM EDT Temperature 36.4 C (97.6 F) 07/17/2025 1:43 PM EDT Respiratory Rate 25 07/17/2025 1:43 PM EDT Oxygen Saturation 99% 07/17/2025 1:43 PM EDT Inhaled Oxygen Concentration - - Weight 89.3 kg (196 lb 12.8 oz) 07/17/2025 1:43 PM EDT Height 175.3 cm (5' 9 ) 07/17/2025 1:43 PM EDT Body Mass Index 29.06 07/17/2025 1:43 PM EDT Plan of Treatment Health Maintenance Due Date Last Done Comments Zoster Vaccines (3 of 3) 03/04/2020 01/08/2020, 02/07 RSV Patients and Patients Aged 60 years or older (1 - 1-dose 75+ series) 2021 Mammogram 04/11/2025 04/11/2024, 04/11/2024 COVID-19 Vaccine ( season) 2025 11/11/2021, 03/05/2021, 02/05/2021 Influenza Vaccine (#1) 2025 , 09/23/2023, 09/29/2022, Additional history exists Alcohol/Substance Use Screening 10/17/2025 10/17/2024 Depression Screening 10/17/2025 10/17/2024, 10/17/20 24 SDOH Screening 01/02/2026 01/02/2025 Tobacco Screening 07/17/2026 07/17/2025 Lipid Panel 01/16/2030 01/16/2025, 12/03/2023, 12/24/2021, Additional [...] [facility] Routine 07/25/2025 9:25 AM EDT PROTHROMBIN TIME WHOLE BLD POC Routine 07/11/2025 1:05 PM EDT ~PT, ~INR - ANTI COAG CLINIC Routine 07/11/2025 1:05 PM EDT PROTHROMBIN TIME WHOLE BLD POC Routine 07/04/2025 1:17 PM EDT ~PT, ~INR - ANTI COAG CLINIC Routine 07/04/2025 1:17 PM EDT PROTHROMBIN TIME WHOLE BLD POC Routine 06/27/2025 [...] COAG CLINIC Routine 05/02/2025 1:28 PM EDT LIPID PANEL, STANDARD Routine 01/16/2025 9:13 AM EDT Mixed hyperlipidemia BI MAMMOGRAM DIAGNOSTIC TOMOSYNTHESIS BILATERAL Routine 04/11/2024 3:15 PM EDT Gynecomastia ZZZ HISTORICAL HEPATITIS C AB W/REFL TO HCV RNA, QN, PCR Routine 12/24/2021 8:24 AM EST from Last 3 Months or Most Recently Relevant to Health Maintenance Results * (ABNORMAL) PROTHROMBIN TIME WHOLE BLD POC (07/25/2025 9:25 AM EDT) Only the most recent of6 resultswithin the time period is included. Protime 39.6(H) 11.1 - 13.5 sec [facility] 07/25/2025 9:25 AM EDT 07/25/2025 9:27 AM EDT us Generic External Data Provider LAB BLOOD ORDERAB LES Final Result [facility] [address] [place] [phone] * (ABNORMAL) ~PT, ~INR - ANTI COAG CLINIC (07/25/2025 9:25 AM EDT) Only the most recent of6 resultswithin the time period is included. Prothrombin Time INR 3.3(H) 0.9 - 1.1 [facility] Comment:METER #: [id number] TERNATIONAL NORMALIZED RATIO (INR) REFERENCE RANGES Reference [...] Provider LAB BLOOD ORDERAB LES Final Result [facility] [address] [place] [phone] * (ABNORMAL) PSA, Free and Total (06/26/2025 12:16 PM EDT) PSA, Total 5.6(A) < OR = 4.0 ng/mL [facility] PSA % Free 38 >25 % (calc) [facility] Comment: PSA(ng/mL) Free PSA(%) Estimated(x) Probability of Cancer(as%)0-2.5 (*) Approx. 12.6-4.0(1) 0-27(2) 24(3)4.1-10(4) 0-10 56 11-15 28 16-20 20 21-25 16 >or =26 8>10(+) N/A >50References:(1)Tc et al.:Urology 60: 469-474 (2002) (2)Tc et al.:J.Urol 168: 922-925 (2002) Free PSA(%) Sensitivity(%) Specificity(%) < or = 25 85 19 < or = 30 93 9 (3)Catalona et al.:MARLEEN 277: 7189-9689 (1996) (4)Catalona et al.:MARLEEN 279: 1270-7704 (1997)(x)These estimates vary with age, ethnicity, family [...] presence or absence ofdisease.THIS TEST WAS PERFORMED AT:[employer] [place] [phone] SEGURA MD PSA, Free 2.1 ng/mL [facility] 06/26/2025 12:1 6 PM EDT 06/26/2025 12:16 PM EDT us Generic External Data Provider LAB BLOOD ORDERAB LES Final Result [facility] [address] [place] [phone] * (ABNORMAL) PSA, Total With Reflex to PSA, Free (06/26/2025 8:09 AM EDT) PSA,Total (Free>4and<10) 6.40(H) 0.00 - 4.00 ng/mL [facility] Comment:PSA methodology: Angel Gillespie i ChemiluminescentMicroparticle Immunoassay (CMIA) 06/26/2025 8:09 AM EDT 06/26/2025 10:58 AM EDT us Generic External Data Provider LAB BLOOD ORDERAB LES Final Result Performing Organization Address City/[facility]/ZIP Co de Phone Number [facility] [address] [place] [phone] * (ABNORMAL) CBC (06/26/2025 8:09 AM EDT) White Blood Count 2.9(L) 4.8 - 10.8 X10*3/uL [facility] Red Blood Count 2.55(L) 4.60 - 5.80 X10*6/uL [facility] Hemoglobin 7.7(L) 14.0 - 18.0 g/dl [facility] Hematocrit 24.6(L) 42.0 - 52.0 % [facility] Mean Corpuscular Volume 96.5 80.0 - 98.0 fL [facility] Mean Corpuscular Hemoglobin 30.2 27.0 - 33.0 pg [facility] Mean Corpuscular HGB Conc 31.3 31.0 - 36.0 g/dl [facility] Red Cell Distribution Width 14.6 11.0 - 16.0 % [facility] Platelet Count 109(L) 160 - 400 X10*3/uL [facility] Mean Platelet Volume 10.8 9.4 - 12.4 fL [facility] NRBC Pct Auto 0.0 0.0 - 0.2 /100WBC [facility] NRBC Abs Auto 0.000 0.0 - 0.012 X10*3/uL [facility] 06/26/2025 8:09 AM EDT 06/26/2025 10:58 AM EDT us Generic External Data Provider LAB BLOOD ORDERAB LES Final Result Performing Organization Address City/[facility]/ZIP Co de Phone Number [facility] [address] [place] [phone] * (ABNORMAL) Basic Metabolic Panel (06/26/2025 8:09 AM EDT) Sodium 141 135 - 145 mmol/L [facility] Potassium 3.6 3.3 - 5.1 mmol/L [facility] Chloride 111(H) 96 - 108 mmol/L [facility] Carbon Dioxide 22 22 - 29 mmol/L [facility] Anion Gap 12 12 - 20 [facility] Urea Nitrogen (BUN) 16 9 - 16 mg/dL [facility] Creatinine, Serum 1.90(H) 0.5 - 1.4 mg/dL [facility] Estimated Glomerular Filt Rate 34 [facility] Comment:Chronic Kidney Disea se: Estimated GFR < 60 mL/min/1.46r3Tesukr Kidney Disease: Estimated GFR < 15 mL/min/1.73m2 Glucose 85 60 - 115 mg/dL [facility] Calcium 8.8 8.4 - 10.2 mg/dL [facility] 06/26/2025 8:09 AM EDT 06/26/2025 10:58 AM EDT us Generic External Data Provider LAB BLOOD ORDERAB LES Final Result [facility] [address] [place] [phone] * (ABNORMAL) Comprehensive Metabolic Panel (05/03/2025 8:16 AM EDT) Sodium 140 135 - 145 mmol/L [facility] Potassium 4.1 3.3 - 5.1 mmol/L [facility] Chloride 111(H) 96 - 108 mmol/L [facility] Carbon Dioxide 22 22 - 29 mmol/L [facility] Anion Gap 11(L) 12 - 20 [facility] Urea Nitrogen (BUN) 21(H) 9 - 16 mg/dL [facility] Creatinine, Serum 2.00(H) 0.5 - 1.4 mg/dL [facility] Estimated Glomerular Filt Rate 32 [facility] Comment:Chronic Kidney Disea se: Estimated GFR < 60 mL/min/1.04g8Nlxiyh Kidney Disease: Estimated GFR < 15 mL/min/1.73m2 Glucose 87 60 - 115 mg/dL [facility] Calcium 9.0 8.4 - 10.2 mg/dL [facility] Bilirubin, Total 0.9 0.0 - 1.0 mg/dL [facility] Aspartate Amino Transferase 24 5 - 37 U/L [facility] Alanine Aminotransferase 18 0 - 40 U/L [facility] Total Protein 6.5 6.5 - 8.0 g/dL [facility] Albumin Level 4.0 3.5 - 5.0 g/dL [facility] Alkaline Phosphatase 110 39 - 117 U/L [facility] Blood Venous blood specimen / Unknown 05/03/2025 8:16 AM EDT 05/03/2025 11:27 AM EDT us Pedro Julian MD LAB BLOOD ORDERABLES Final Result [facility] [address] [place], [place] [phone] * (ABNORMAL) Lipid Panel, Standard (01/16/2025 9:13 AM EDT) Triglycerides 40 <150 mg/dL [facility] Comment:Desirable Triglyceri de: less than 150 mg/dLBorderline High Triglyceride 150-199 mg/dLHigh Triglyceride: 200-499 mg/dLVery High Triglyceride: greater than or equal to 5OO mg/dL Cholesterol 93 <200 mg/dL [facility] Comment:Desirable Cholestero l: less than 200 mg/dLBorderline High Cholesterol: 200-239 mg/dLHigh Cholesterol: greater than 239 mg/dL LDL Cholesterol Calculated 58 <100 mg/dL [facility] Comment:Desirable LDL: less than 100 mg/dLNear Optimal/Above Optimal LDL: 110- 129 mg/dLBorderline High LDL: 130-159 mg/dLHigh LDL: 160-189 mg/dLVery High LDL: greater than or equal to 190 mg/dL HDL Cholesterol 27(L) >40 mg/dL [facility] Comment:Desirable HDL: great er than 40 mg/dL Note: This HDL assay may give artificially low results in patients with liver disease. Blood Venous blood specimen / Unknown 01/16/2025 9:13 AM EDT 01/16/2025 11:29 AM EDT us Pedro Julian MD LAB BLOOD ORDERABLES Final Result [facility] [address] [place] [phone] * BI Mammogram Diagnostic Tomosynthesis Bilateral (04/11/2024 3:15 PM EDT) Anatomical Region Laterality Modality Breast Bilateral Mammography 04/11/2024 3:15 PM EDT Narrative 04/11/2024 4:59 PM EDT [facility] [address] [place] [address] Mammography Report Signed Patient: Jamie Carpio MR#: [id number] : 1945 Acct:[id number] Age/Sex: 79 / M ADM Date: 04/11/24 Loc: HO.MAMMO Attending Dr: Pedro Webber MD Ordering Physician: Pedro Webber MD Resu lts: 2Benign Findings Date of Service: 04/11/24 Follow Up: 1 Year From [facility] Mammogram Procedure(s): MM tomosynthesis diagnostic BI Accession Number(s): [id number] cc: Pedro Webber MD EXAMINATION: MM DIAGNOSTIC [...] in OV> 04/11/24 1654 DD/ 1515 TD/TT: Security Incident Response Specialist: Procedure Note Donotuseinterpreter, Image - 04/11/2024 [facility] [address] [place] [address] Mammography Report Signed Patient: Rik Carpio#: [id number] : 6Acct:[id number] Age/Sex: 79 / MADM Date: 04/11/24 Loc: HO.MAMMO Attending Dr: Pedro Webber MD Ordering Physician: Pedro Webber MDResu lts: 2Benign Findings Date of Service: 04/11/24Follow Up: 1 Year From [facility] Mammogram Procedure(s): MM tomosynthesis diagnostic BI Accession Number(s): [id number] cc: Pedro Webber MD EXAMINATION: MM DIAGNOSTIC [...] in OV> 04/11/24 1654 DD/ 1515 TD/TT: Security Incident Response Specialist: Pedro Julian MD IMG BI PROCEDURES Fin al Result * HEPATITIS C AB W/REFL TO HCV RNA, QN, PCR (12/24/2021 8:24 AM EST) HEPATITIS C ANTIBODY NON-REACT SIL NON-REACT SIL [facility] INDEX 0.01 <1.00 [facility] Comment: HCV antibody was non-reactive. There is no laboratory evidence of HCV infection. In most cases, no further action is required. However, if recent HCV exposure is suspected, a test for HCV RNA (test code 31350) is suggested. For additional information please refer to http://education.[employer]Revelens/faq/NBL32k8 (This link is being provided for informational/ educational purposes only.) 12/24/2021 8:24 AM EST Pedro Julian MD HISTORICAL/NON ORDERA BLE LABS Final Result [facility] [address] from Last 3 Months or Most Recently Relevant to Health Maintenance Insurance [employer] [facility] [employer] (O D-SNP) KATHLEEN ANTOINE [id number] Care Teams Basket Braider Relationship Specialty Start Date End Date Pedro Pulliam MD [address] [place] [address] PCP - General Internal Medicine 09/10/14 Niko Salamanca MD [address] [place] [address] Nephrology 01/16/25 Summer Wills MD [address] [place] [phone] Hematology and Oncology 06/27/25
--- OUTSIDE RECORDS SUMMARY | 2025-07-25 10:57 | XMS_ITS | Clinical Summary ---
Author Organization [employer] [facility] Facility Address [address] [address] Care Team Providers Care Rewriter Name Role Phone Pedro Snow MD Primary [...] age to complete this topic Care Teams Rewriter Relationship Specialty Start Date End Date Pedro Snow MD PCP - General 11/18/20
--- OUTSIDE RECORDS SUMMARY | 2025-07-25 10:57 | XMS_ITS | Encounter Summary ---
Author Organization [facility] Address [address] [place] [address] Phone Care Team Providers Care Supervisor Cell Maintenance Name Role Phone Unavailable Primary Care Provider Unavailabl e Encounter Details Date Type Department Care Team (Late st Contact Info) Description 10/28/2018 Ancillary Orders [facility] [address] 3rd Floor, [address] [place], [place] [phone] Felton Triana MD [address] [place] [phone] [email or web address] Social History Tobacco Use [...] It is not the complete legal health record.[facility]
--- OUTSIDE RECORDS SUMMARY | 2025-07-25 10:57 | XMS_ITS | Patient Health Record ---
Author Organization [facility] Address [address] [place] [address] Care Team Providers Care Director Of Cardiac Rehabilitation Name Role Phone Gwendolyn Julian MD, Pedro Primary Care Provide r Unavailable Favian Hardin Jr Unavailable [phone] Reason For Referral No Information Plan Of Treatment No Information Insurance Providers Payer Name Payer Address Payer Phone Subscriber Number Group Number Insured Name Patient Relationship to Insured Coverage Start Date Coverage End Date MEDICARE OF [facility] [address] [facility] [place] [id number] [phone] [id number] LILY RINCON Self - patient is the insured
--- OUTSIDE RECORDS SUMMARY | 2025-07-25 10:57 | XMS_ITS | Encounter Summary ---
Author Organization [employer] Address [address] [facility] 7t [place] [address] Care Team Providers Care Roll Cutter Name Role Phone Pedro Pulliam MD Primary Care Provide r Niko Salamanca MD Unavailable [phone] Summer Wills MD Unavailable [phone] Reason for Visit * Reason Onset Date Comments OV 03/1602/17/2024 Encounter Details Date Type Department Care Team (Late st Contact Info) Description 02/17/2024 Telephone [facility] [address] [place], [place] [phone] Pedro Pulliam MD [address] [place], [place] [phone] OV 03/16 Social History Tobacco Use Types [...] any questions you can contact pt at [phone]. documented in this encounter Plan of Treatment Not on file documented as of this encounter Visit Diagnoses Not on filedocumented in this encounter Additional Health Concerns Assessment Noted Time PHQ-9 Depression Total Score: 1 09/23/20 23 1:21 PM EST documented as of this encounter Care Teams Roll Cutter Relationship Specialty Start Date End Date Pedro Pulliam MD [address] [place] [address] PCP - General Internal Medicine 09/10/14 Niko Salamanca MD [address] [place] [phone] Nephrology 01/16/25 Summer Wills MD [address] [place] [phone] Hematology and Oncology 06/27/25 documented as of this encounter
--- OUTSIDE RECORDS SUMMARY | 2025-07-25 10:57 | XMS_ITS | Encounter Summary ---
Author Organization [employer] Address [address] [facility] 7t [place] [address] Care Team Providers Care Saw Edge Fuser Circular Name Role Phone Pedro Pulliam MD Primary Care Provide r Niko Salamanca MD Unavailable [phone] Summer Wills MD Unavailable [phone] Reason for Visit * Reason Onset Date Comments Med Refill 2023 Encounter Details Date Type Department Care Team (Late st Contact Info) Description 2023 Refill [facility] MEDICINE 230 [place], [place] [phone] Pedro Pulliam MD [address] [place], [place] [phone] Atrial fibrillation, unspecified type (CMS/HCC) (Primary Dx) [...] Primary documented in this encounter Care Teams Saw Edge Fuser Circular Relationship Specialty Start Date End Date Pedro Pulliam MD 230 [place] [address] PCP - General Internal Medicine 09/10/14 Niko Salamanca MD [address] [place] [address] Nephrology 01/16/25 Summer Wills MD [address] [place] [address] Hematology and Oncology 06/27/25 documented as of this encounter
--- OUTSIDE RECORDS SUMMARY | 2025-07-25 10:57 | XMS_ITS | Encounter Summary ---
Author Organization [employer] Address [address] [place] [address] 7t [place] [address] Care Team Providers Care Rig Mechanic Name Role Phone Pedro Pulliam MD Primary Care Provide r Niko Salamanca MD Unavailable [phone] Summer Wills MD Unavailable [phone] Encounter Details Date Type Department Care Team (Late st Contact Info) Description 05/31/2023 Orders Only [facility] MEDICINE 230 [place] [address] Shanita Pfeiffer LPN Social History Tobacco Use [...] on filedocumented in this encounter Care Teams Rig Mechanic Relationship Specialty Start Date End Date Pedro Pulliam MD 230 [place] [address] PCP - General Internal Medicine 09/10/14 Niko Salamanca MD [address] [place] [address] Nephrology 01/16/25 Summer Wills MD 575 [place] [address] Hematology and Oncology 06/27/25 documented as of this encounter
--- OUTSIDE RECORDS SUMMARY | 2025-07-25 10:57 | XMS_ITS | Encounter Summary ---
Author Organization [employer] Address [address] [place] [address] 7t [place] [address] Care Team Providers Care Credit Resolution Representative Name Role Phone Pedro Pulliam MD Primary Care Provide r Niko Salamanca MD Unavailable [phone] Summer Wills MD Unavailable [phone] Encounter Details Date Type Department Care Team (Late st Contact Info) Description 02/25/2023 Orders Only [facility] MEDICINE 230 [place] [address] Shanita Pfeiffer LPN Social History Tobacco Use [...] on filedocumented in this encounter Care Teams Credit Resolution Representative Relationship Specialty Start Date End Date Pedro Pulliam MD 230 [place] [address] PCP - General Internal Medicine 09/10/14 Niko Salamanca MD [address] [place] [address] Nephrology 01/16/25 Summer Wills MD 575 [place] [address] Hematology and Oncology 06/27/25 documented as of this encounter
--- OUTSIDE RECORDS SUMMARY | 2025-07-25 10:57 | XMS_ITS | Encounter Summary ---
Author Organization [employer] Address [address] [facility] 7t [place] [address] Care Team Providers Care Rn Tele Name Role Phone Pedro Pulliam MD Primary Care Provide r Niko Salamanca MD Unavailable [phone] Summer Wills MD Unavailable [phone] Encounter Details Date Type Department Care Team (Late st Contact Info) Description 01/06/2023 Orders Only [facility] CHC MED & PEDS [address] [place] [address] Shira Castano LPN Social History Tobacco Use [...] filedocumented in this encounter Care Teams Rn Tele Relationship Specialty Start Date End Date Pedro Pulliam MD 230 [place] [address] PCP - General Internal Medicine 09/10/14 Niko Salamanca MD [address] [place] [address] Nephrology 01/16/25 Summer Wills MD 575 [place] [address] Hematology and Oncology 06/27/25 documented as of this encounter
--- OUTSIDE RECORDS SUMMARY | 2025-07-25 10:58 | XMS_ITS | Clinical Summary ---
Author Organization [facility] Address [address] [address] Phone Care Team Providers Care Chucking Machine Set Up Operator Tool Name Role Phone Unavailable Primary Care Provider [...] file Medical Devices Not on file Insurance [facility] ANOTINE WANG [address] [place] [address] MEDICARE REPLACEMENT [facility] MEDICARE REPLACEMENT [facility] MEDICARE REPLACEMENT [place] [address] MEDICARE REPLACEMENT [address] [address] [facility] MEDICARE REPLACEMENT [facility] MEDICARE REPLACEMENT [facility] MEDICARE REPLACEMENT [facility] MEDICARE REPLACEMENT Additional Source Comments The information contained in this document represents components of the legal health record. It is not the complete legal health record.[facility]
--- OUTSIDE RECORDS SUMMARY | 2025-07-25 10:58 | XMS_ITS | Clinical Summary ---
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
== END 2025-07-25 09:41 | disposition home or self-care (01) ==
LOC: HO.ACS 09:20
PROVIDERS: PCP Internal Medicine; Visit Provider Internal Medicine Medical Oncology
DX: Z79.01 Long term (current) use of anticoagulants (principal)

== ENCOUNTER → 2025-07-25 09:20 | Outpatient (BNVA) | payer OTHER, SELFPAY | PROVIDERS: PCP Internal Medicine; Visit Provider Internal Medicine Medical Oncology | DX: I48.0 Paroxysmal atrial fibrillation (principal); Z79.01 Long term (current) use of anticoagulants; Z51.81 Encounter for therapeutic drug level monitoring | CPT/HCPCS: 85610; 99211 ==

== ENCOUNTER 2025-08-08 12:57 | Outpatient (AMB) | payer OTHER, SELFPAY ==
[2025-08-08 13:12] LABS: Prothrombin Time Whole Bld POC 61.2 sec (11.1-13.5); ~PT, ~INR - Anti Coag Clinic 5.1 (0.9-1.1)
--- NOTE | 2025-08-08 13:30 | MHC.OFFVISCO ---
Intake Intake Visit Reasons: Anticoagulation Allergies No Known Allergies (No Known Allergies*) Allergy (Verified 08/08/25 13:07) Medication List - Last Reconciled 08/08/25 by Neena Boyce RN amlodipine 5 mg PO DAILY atorvastatin 80 mg PO BEDTIME carbamide peroxide 6.5% (Ear Wax Removal Drops) 5 drps otic (ear) left BID cholecalciferol (vitamin D3) 25 mcg PO DAILY dorzolamide-timolol 22.3-6.8 mg/mL 22.3 drps ophthalmic (eye) BID ferrous sulfate (FeroSul) 1 tab PO DAILY furosemide 40 mg PO DAILY iron sucrose (Venofer) 200 mg IV Q3D octreotide acetate (Mycapssa) 20 mg PO DAILY Held on 11/20/22. Instructions: rejected by insurance terazosin 5 mg PO BEDTIME 90 days travoprost 0.004% 1 drp ophthalmic (eye) BEDTIME warfarin 5 mg See Protocol PO DAILY Nursing Note PT.DENIES ANY CP,SOB,DIET/MED CHANGES,FALLS OR SX OF BLEEDING. PT.STATES THAT HE HAD 1 EPISODE OF DIARRHEA THIS MORNING. INR IS 5.1 TODAY. PT.HAS LABS SCHEDULED AFTER ACS TODAY IN ONCOLOGY. REPEAT PT/INR IS ADDED. PT.AGREES TO HOLD WARFARIN 2 DAYS AND REPEAT INR ON 08/10. WILL HAVE SOME GREENS . PCP(GEOFFREY) NOTIFIED OF HIGH INR AND PLAN OF CARE AT 1:40PM Anti-Coag Initial Assessment Social Hx Patient Tobacco Use Status: Former Tobacco user Tobacco use type: Cigarette alcohol intake: former Alcohol intake frequency: does not drink Coding Level of Care Code Est Patient Level 1 Diagnoses Current use of anticoagulant therapy Z79.01 Assessment & Plan Assessment & Plan (1) Current use of anticoagulant therapy: Comment: warfarin-Otto Margarette- need to confirm ok to stop 5 days prior to colonoscopy-unable to send note through expanse Patient aware this must be confirmed, there were no major barriers to understanding identified Code(s): Z79.01 - director long term care (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
--- OUTSIDE RECORDS SUMMARY | 2025-08-08 14:13 | XMS_ITS | Encounter Summary ---
Author Organization [facility] Address [address] [place] [address] Phone Care Team Providers Care Rn Geriatric Name Role Phone Unavailable Primary Care Provider Unavailabl e Encounter Details Date Type Department Care Team (Late st Contact Info) Description 10/28/2018 Ancillary Orders [facility] [address] [facility] 3rd Floor, [address] [place], [place] [phone] Felton Triana MD [address] [place] [address] [email or web address] Social History Tobacco Use Types Packs/Day Years [...] It is not the complete legal health record.[facility]
--- OUTSIDE RECORDS SUMMARY | 2025-08-08 14:13 | XMS_ITS | Clinical Summary ---
Author Organization [facility] Address [address] [address] Phone Care Team Providers Care Histology Assistant Name Role Phone Unavailable Primary Care Provider [...] file Medical Devices Not on file Insurance [facility]EMENT ANTOINE WANG [id number] [place] [address] MEDICARE REPLACEMENT [facility] MEDICARE REPLACEMENT [facility] MEDICARE REPLACEMENT [place] [address] MEDICARE REPLACEMENT [facility] MEDICARE REPLACEMENT [facility] MEDICARE REPLACEMENT [facility] MEDICARE REPLACEMENT Additional Source Comments The information contained in this document represents components of the legal health record. It is not the complete legal health record.[facility]
--- OUTSIDE RECORDS SUMMARY | 2025-08-08 14:13 | XMS_ITS | Encounter Summary ---
Author Organization [employer] Address 75 [facility] 7t [place] [address] Care Team Providers Care Bottom Cementer Name Role Phone Pedro Pulliam MD Primary Care Provide r Niko Salamanca MD Unavailable [phone] Summer Wills MD Unavailable [phone] Reason for Visit * Reason Onset Date Comments Critical INR 08/08/2025 Encounter Details Date Type Department Care Team (Late st Contact Info) Description 08/08/2025 Telephone [facility] 230 [place], [place] [phone] Pedro Pulliam MD 230 [place], [place] [phone] Critical INR Social History Tobacco Use Types Packs/Day Years Used Date Smoking Tobacco: Former Cigarettes Passive Smoke Exposure: Never Smokeless Tobacco: Never Depression Answer Date Recorded Patient Health Questionnaire-9 Score 0 10/17/2024 Patient Health Questionnaire-9 Score 0 10/17/2024 Last PHQ-9: Questionnaire Data Not on file 1 12/18/2023 Housing Stability Answer Date Recorded What is your housing situation today? I have prashant jeanette 10/17/[address] you li [...] encounter Miscellaneous Notes * Telephone Encounter - Lynn Tabor RN - 08/08/2025 1:40 PM EDT Incoming call from the [facility] coumadin clinic , Neena. Neena reported the pt' s INR today is 5.1 . Neena states the pt's Coumadin will be held today ,and tomorrow . Will route this message to the green team nurses ,and the PCP for review . A warm handoff was sent to the green team nurses via secure chat . documented in this encounter Plan of Treatment Not on file documented as of this encounter Visit Diagnoses Not on filedocumented in this encounter Additional Health Concerns Assessment Noted Time PHQ-9 Depression Total Score: 0 10/17/20 24 1:50 PM EST documented as of this encounter Care Teams Bottom Cementer Relationship Specialty Start Date End Date Pedro Pulliam MD [address] [place] [address] PCP - General Internal Medicine 09/10/14 Niko Salamanca MD [address] [place] [address] Nephrology 01/16/25 Summer Wills MD [address] [place] [address] Hematology and Oncology 06/27/25 documented as of this encounter
--- OUTSIDE RECORDS SUMMARY | 2025-08-08 14:13 | XMS_ITS | Encounter Summary ---
Author Organization [employer] Address [address] [facility] 7t [place] [address] Care Team Providers Care Php Mysql Developer Name Role Phone Pedro Pulliam MD Primary Care Provide r Niko Salamanca MD Unavailable [phone] Summer Wills MD Unavailable [phone] Reason for Visit * Reason Comments Med Refill Encounter Details Date Type Department Care Team (Late st Contact Info) Description 06/02/2024 Refill [facility] MEDICINE 230 [place], [place] [phone] Pedro Pulliam MD 230 [place], [place] [phone] Primary hypertension; Stage 3 chronic kidney disease, [...] whether stage 3a or 3b CKD (CMS/HCC) ([facility]) Nonrheumatic tricuspid valve regurgitation documented in this encounter Additional Health Concerns Assessment Noted Time PHQ-9 Depression Total Score: 1 09/23/20 23 1:21 PM EST documented as of this encounter Care Teams Php Mysql Developer Relationship Specialty Start Date End Date Pedro Pulliam MD 230 [place] [address] PCP - General Internal Medicine 09/10/14 Niko Salamanca MD [address] [place] [address] Nephrology 01/16/25 Summer Wills MD [address] [place] [address] Hematology and Oncology 06/27/25 documented as of this encounter
--- OUTSIDE RECORDS SUMMARY | 2025-08-08 14:13 | XMS_ITS | Encounter Summary ---
Author Organization [employer] Address 75 [facility] 7t [place] [address] Care Team Providers Care Electric Meter Tester Name Role Phone Pedro Pulliam MD Primary Care Provide r Niko Salamanca MD Unavailable [phone] Summer Wills MD Unavailable [phone] Reason for Visit * Reason Onset Date Comments OV 03/1602/17/2024 Encounter Details Date Type Department Care Team (Late st Contact Info) Description 02/17/2024 Telephone [facility] MEDICINE 230 [place], [place] [phone] Pedro Pulliam MD 230 [place], [place] [phone] OV 03/16 Social History Tobacco Use Types [...] any questions you can contact pt at [phone]. documented in this encounter Plan of Treatment Not on file documented as of this encounter Visit Diagnoses Not on filedocumented in this encounter Additional Health Concerns Assessment Noted Time PHQ-9 Depression Total Score: 1 09/23/20 23 1:21 PM EST documented as of this encounter Care Teams Electric Meter Tester Relationship Specialty Start Date End Date Pedro Pulliam MD 230 [place] [address] PCP - General Internal Medicine 09/10/14 Niko Salamanca MD [address] [place] [address] Nephrology 01/16/25 Summer Wills MD [address] [place] [address] Hematology and Oncology 06/27/25 documented as of this encounter
--- OUTSIDE RECORDS SUMMARY | 2025-08-08 14:13 | XMS_ITS | Encounter Summary ---
Author Organization [employer] Address [address] [facility] 7t [place] [address] Care Team Providers Care Storage Management Consultant Name Role Phone Pedro Pulliam MD Primary Care Provide r Niko Salamanca MD Unavailable [phone] Summer Wills MD Unavailable [phone] Encounter Details Date Type Department Care Team (Late st Contact Info) Description 01/06/2023 Orders Only [facility] CHC MED & PEDS [address] [place] [address] Shira Castano LPN Social History Tobacco Use [...] on filedocumented in this encounter Care Teams Storage Management Consultant Relationship Specialty Start Date End Date Pedro Pulliam MD 230 [place] [address] PCP - General Internal Medicine 09/10/14 Niko Salamanca MD [address] [place] [address] Nephrology 01/16/25 Summer Wills MD 575 [place] [address] Hematology and Oncology 06/27/25 documented as of this encounter
--- OUTSIDE RECORDS SUMMARY | 2025-08-08 14:13 | XMS_ITS | Encounter Summary ---
Author Organization [employer] Address [address] [facility] [address] [address] [address] 7t [place] [address] Care Team Providers Care Upholstery Covers Inspector Name Role Phone Pedro Pulliam MD Primary Care Provide r Niko Salamanca MD Unavailable [phone] Summer Wills MD Unavailable [phone] Encounter Details Date Type Department Care Team (Late st Contact Info) Description 08/08/2025 Orders Only GENERIC EXTERNAL DATA DEPARTMENT Provider, [...] Comments PROTHROMBIN TIME WHOLE BLD POC Routine 08/08/2025 1:10 PM EDT ~PT, ~INR - ANTI COAG CLINIC Routine 08/08/2025 1:10 PM EDT documented in this encounter Results * (ABNORMAL) PROTHROMBIN TIME WHOLE BLD POC (08/08/2025 1:10 PM EDT) Protime 61.2(H) 11.1 - 13.5 sec [facility] 08/08/2025 1:10 PM EDT 08/08/2025 1:11 PM EDT us Generic External Data Provider LAB BLOOD ORDERAB LES Final Result Performing Organization Address City/State/[facility] Co de Phone Number [facility] [address] [place] [phone] * (ABNORMAL) ~PT, ~INR - ANTI COAG CLINIC (08/08/2025 1:10 PM EDT) Prothrombin Time INR 5.1(HH) 0.9 - 1.1 [facility] Comment:METER #: [id number] TERNATIONAL NORMALIZED RATIO (INR) REFERENCE RANGES Reference RangeFor patients not on anticoagulant therapy: 0.9 - 1.1INR ranges for oral anticoagulanttherapy:For prevention and treatment of venous thrombosis and pulmonary embolism: 2.0 - 3.0For acute myocardial infarction with aspirin therapy: 2.0 - 3.0For acute myocardial infarction without aspirin therapy: 3.0 - 4.0For patients with mechanical prosthetic heart valves: 2.5 - 3.5 08/08/2025 1:10 PM EDT 08/08/2025 1:11 PM EDT us Generic External Data Provider LAB BLOOD ORDERAB LES Final Result [facility] [address] [place] [address] [phone] documented in this encounter Visit Diagnoses Not on filedocumented in this encounter Additional Health Concerns Assessment Noted Time PHQ-9 Depression Total Score: 0 10/17/20 24 1:50 PM EST documented as of this encounter Care Teams Upholstery Covers Inspector Relationship Specialty Start Date End Date Pedro Pulliam MD 230 [place] [address] PCP - General Internal Medicine 09/10/14 Niko Salamanca MD [address] [place] [address] Nephrology 01/16/25 Summer Wills MD [address] [place] [address] Hematology and Oncology 06/27/25 documented as of this encounter
--- OUTSIDE RECORDS SUMMARY | 2025-08-08 14:13 | XMS_ITS | Encounter Summary ---
Author Organization [facility] Address [address] [facility] [address] [address] [place] [address] Phone Care Team Providers Care Spinneret Cleaner Name Role Phone Unavailable Primary Care Provider Unavailabl e Encounter Details Date Type Department Care Team (Late st Contact Info) Description 10/28/2018 Ancillary Orders [facility] [address] [place] [address] [place] [address] Felton Triana MD [address] [place] [address] [email or web address] Social History Tobacco Use Types Packs/Day [...]
--- OUTSIDE RECORDS SUMMARY | 2025-08-08 14:13 | XMS_ITS | Encounter Summary ---
Author Organization [employer] Address [address] [place] [address] 7t [place] [address] Care Team Providers Care Quality Control Industrial Engineer Name Role Phone Pedro Pulliam MD Primary Care Provide r Niko Salamanca MD Unavailable [phone] Summer Wills MD Unavailable [phone] Encounter Details Date Type Department Care Team (Late st Contact Info) Description 02/25/2023 Orders Only [facility] MEDICINE 230 [place] [address] Shanita Pfeiffer LPN Social History Tobacco Use [...] on filedocumented in this encounter Care Teams Quality Control Industrial Engineer Relationship Specialty Start Date End Date Pedro Pulliam MD 230 [place] [address] PCP - General Internal Medicine 09/10/14 iNko Salamanca MD [address] [place] [address] Nephrology 01/16/25 Summer Wills MD 575 [place] [address] Hematology and Oncology 06/27/25 documented as of this encounter
--- OUTSIDE RECORDS SUMMARY | 2025-08-08 14:13 | XMS_ITS | Encounter Summary ---
Author Organization [employer] Address [address] [place] [address] 7t [place] [address] Care Team Providers Care Consumer Education Specialist Name Role Phone Pedro Pulliam MD Primary Care Provide r Niko Salamanca MD Unavailable [phone] Summer Wills MD Unavailable [phone] Encounter Details Date Type Department Care Team (Late st Contact Info) Description 05/31/2023 Orders Only [facility] MEDICINE 230 [place] [address] Shanita Pfeiffer LPN Social History Tobacco Use [...] on filedocumented in this encounter Care Teams Consumer Education Specialist Relationship Specialty Start Date End Date Pedro Pulliam MD 230 [place] [address] PCP - General Internal Medicine 09/10/14 Niko Salamanca MD [address] [place] [address] Nephrology 01/16/25 Summer Wills MD 575 [place] [address] Hematology and Oncology 06/27/25 documented as of this encounter
--- OUTSIDE RECORDS SUMMARY | 2025-08-08 14:13 | XMS_ITS | Clinical Summary ---
Author Organization [employer] Address [address] [facility] 7t [place] [address] Care Team Providers Care Life Assurance Representative Name Role Phone Pedro Pulliam MD Primary Care Provide r Niko Salamanca MD Unavailable [phone] Summer Wills MD Unavailable [phone] Allergies No known active allergies Medications Aspirin Low Dose 81 MG EC tabletIndications: Primary hypertension TAKE 1 TABLET BY MOUTH EVERY DAY 30 tablet 6 4 Active warfarin (Coumadin) 5 MG tabletIndications: Atrial fibrillation, unspecified type (CMS/HCC) (HCC) TAKE 1 TABLET BY MOUTH EVERY DAY DIRECTED BY [facility]MADIN CLINIC 90 tablet 4 Active furosemide (Lasix) 20 MG tabletIndications: Stage 3 chronic kidney disease, unspecified whether stage 3a or 3b CKD (CMS/HCC) (HCC),Primary hypertension,Nonrh eumatic tricuspid valve regurgitation 1 tab [...] MG tabletIndications: Atrial fibrillation, unspecified type (CMS/HCC) (HCC) TAKE 1 TABLET BY MOUTH EVERY DAY [...] pt currently undergoing PT with good results. [facility] 09/23/2023 Assessment & Plan (07/17/2025 2:10 PM [...] Zoster: 02/26/2015 Stage 3b chronic kidney disease ([facility]/HCC) 201809/15/2023 Assessment & Plan (07/17/2025 1:53 PM EDT): [...] cataract of both eyes 201709/15/2023 Atrial fibrillation (CMS/HCC) 02/08/2018 Assessment & Plan (07/17/2025 1:56 PM EDT): [...] showed diverticulosis only by Dr connors at [facility] Mixed hyperlipidemia 08/13/2015 09/15/2023 Assessment & Plan [...] past by his vascular surgeon at [facility] (Dr Lind) whose recommendation was conservative treatment, he saw NO role for any type of surgical intervention. He recommended to repeat the scan in 1 year and continue to take Asa 81 mg po daily. Pt was last seen by his material preparation worker at [facility] 09/14/2023 recommended repeat US and ECHO and 6 month follow up He is on Aspirin started by their office Last Carotid US on record from 02/11/2023 Hypertension 04/21/2012 09/15/2023 Assessment & Plan (07/17/2025 1:54 PM EDT): Pt here for a f/u BP stable He is on a regimen of: Norvasc 5 mg daily, and lasix 20 mg daily prescribed by Hydraulic Engineer. Off Lisinopril 40 mg po daily (stopped by Assistant Professor Of Mathematics 04/01) I had lowered his Lasix due [...] and lasix 20 mg daily prescribed by Hydraulic Engineer. Pt is off Lisinopril 40 mg po daily (stopped by Assistant Professor Of Mathematics 04/01) I had recently lowered his Lasix [...] and lasix 20 mg daily prescribed by Hydraulic Engineer. I had recently lowered his Lasix [...] and lasix 20 mg daily prescribed by Hydraulic Engineer. I had recently lowered his Lasix [...] Am and 20 mg PM prescribed by Hydraulic Engineer. I had recently lowered his Lasix [...] Am and 20 mg PM prescribed by Hydraulic Engineer. Pt developed some bilateral ankle edema [...] Furosemide 20 mg po BID prescribed by Hydraulic Engineer. Pt developed some bilateral ankle edema [...] Furosemide 20 mg po BID prescribed by Hydraulic Engineer. Pt developed some bilateral ankle edema [...] impression. Plan: Breast center referral at [facility] Assessment & Plan (02/01/2024 1:36 [...] Encounters Date Type Department Care Team Description 08/08/2025 Telephone [facility] [address] [place] [address] Pedro Pulliam MD Critical INR 08/08/2025 Orders Only GENERIC EXTERNAL DATA DEPARTMENT Provider, Generic External Data 07/25/2025 Orders Only GENERIC EXTERNAL DATA DEPARTMENT Provider, Generic External Data 07/17/2025 2:00 PM EDT Office Visit [facility] [address] [place] [address] Pedro Pulliam MD Primary hypertension (Primary Dx); Stage 3b chronic kidney disease (CMS/HCC); Longstanding persistent atrial fibrillation (CMS/HCC); Primary open angle glaucoma (POAG) of both eyes, indeterminate stage; Gynecomastia; Bilateral leg edema; KARINA (obstructive sleep apnea); Sciatica of left side; Benign prostatic hyperplasia with urinary frequency; Preventative health care 07/17/2025 Travel 07/16/2025 Telephone [facility] [address] [place] [address] Pedro Pulliam MD chart prep 07/11/2025 Orders Only GENERIC EXTERNAL DATA DEPARTMENT Provider, Generic External Data 07/04/2025 Orders Only GENERIC EXTERNAL DATA DEPARTMENT Provider, Generic External Data 06/27/2025 Orders Only GENERIC EXTERNAL DATA DEPARTMENT Provider, Generic External Data 06/26/2025 Results Follow-Up [facility] [address] [place] [address] Avis Koenig MD CBC, Basic Metabolic Panel, PSA, Total With Reflex to PSA, Free 06/26/2025 Orders Only GENERIC EXTERNAL DATA DEPARTMENT Provider, Generic External Data 05/30/2025 Orders Only GENERIC EXTERNAL DATA DEPARTMENT Provider, Generic External Data 05/23/2025 Telephone [facility] [address] [place] [address] Pedro Pulliam MD Medication Question 05/21/2025 Refill [facility] [address] [place] [address] Avis Koenig MD Atrial fibrillation, unspecified type ([facility]) 05/17/2025 Refill [facility] [address] [place] [address] Avis Koenig MD Vitamin D deficiency from Last 3 Months Immunizations Immunization Administration [...] Mammogram 04/11/2025 04/11/2024, 04/11/2024 COVID-19 Vaccine ( - 2024- season) 2025 11/11/2021, 03/05/2021, 02/05/2021 Influenza Vaccine (#1) 2025 , 09/23/2023, 09/29/2022, Additional history exists Alcohol/Substance Use Screening 10/17/2025 10/17/2024 Depression Screening 10/17/2025 10/17/2024, 10/17/20 24 SDOH Screening 01/02/2026 01/02/2025 Tobacco Screening 07/17/2026 07/17/2025 Lipid Panel 01/16/2030 01/16/2025, 12/0 03/2023, 12/24/2021, [...] COAG CLINIC Routine 08/08/2025 1:10 PM EDT PROTHROMBIN TIME WHOLE BLD POC Routine 07/25/2025 [...] COAG CLINIC Routine 05/30/2025 1:08 PM EDT LIPID PANEL, STANDARD Routine 01/16/2025 9:13 AM EDT Mixed hyperlipidemia BI MAMMOGRAM DIAGNOSTIC TOMOSYNTHESIS BILATERAL Routine 04/11/2024 3:15 PM EDT Gynecomastia ZZZ HISTORICAL HEPATITIS C AB W/REFL TO HCV RNA, QN, PCR Routine 12/24/2021 8:24 AM EST from Last 3 Months or Most Recently Relevant to Health Maintenance Results * (ABNORMAL) PROTHROMBIN TIME WHOLE BLD POC (08/08/2025 1:10 PM EDT) Only the most recent of6 resultswithin the time period is included. Protime 61.2(H) 11.1 - 13.5 sec [facility] 08/08/2025 1:10 PM EDT 08/08/2025 1:11 PM EDT us Generic External Data Provider LAB BLOOD ORDERAB LES Final Result [facility] [address] [place] [phone] * (ABNORMAL) ~PT, ~INR - ANTI COAG CLINIC (08/08/2025 1:10 PM EDT) Only the most recent of6 resultswithin the time period is included. Prothrombin Time INR 5.1(HH) 0.9 - 1.1 [facility] Comment:METER #: [id number] TERNATIONAL NORMALIZED RATIO (INR) REFERENCE RANGES Reference [...] ORDERAB LES Final Result Performing Organization Address City/State/[facility] Co de Phone Number [facility] [address] [place] [phone] * (ABNORMAL) PSA, Free and Total (06/26/2025 12:16 PM EDT) PSA, Total 5.6(A) < OR = 4.0 ng/mL [facility] PSA % Free 38 >25 % (calc) [facility] Comment: PSA(ng/mL) Free PSA(%) Estimated(x) Probability of Cancer(as%)0-2.5 (*) Approx. 12.6-4.0(1) 0-27(2) 24(3)4.1-10(4) 0-10 56 11-15 28 16-20 20 21-25 16 >or =26 8>10(+) N/A >50References:(1)Tc et al.:Urology 60: 469-474 (2002) (2)Tc et al.:J.Urol 168: 922-925 (2002) Free PSA(%) Sensitivity(%) Specificity(%) < or = 25 85 19 < or = 30 93 9 (3)Tc et al.:MARLEEN 277: 6488-5426 (1996) (4)Catalona et al.:MARLEEN 279: 5037-7699 (1997)(x)These estimates vary with age, ethnicity, family [...] presence or absence ofdisease.THIS TEST WAS PERFORMED AT:[employer] [place] [phone] SEGURA MD PSA, Free 2.1 ng/mL [facility] 06/26/2025 12:1 6 PM EDT 06/26/2025 12:16 PM EDT [employer] External Data Provider LAB BLOOD ORDERAB LES Final Result [facility] [address] [place] [phone] * (ABNORMAL) PSA, Total With Reflex to PSA, Free (06/26/2025 8:09 AM EDT) PSA,Total (Free>4and<10) 6.40(H) 0.00 - 4.00 ng/mL [facility] Comment:PSA methodology: Angel Gillespie i ChemiluminescentMicroparticle Immunoassay (CMIA) 06/26/2025 8:09 AM EDT 06/26/2025 10:58 AM EDT Generic External Data Provider LAB BLOOD ORDERAB LES Final Result Performing Organization Address City/[facility]/ZIP Co de Phone Number [facility] [address] [place] [phone] * (ABNORMAL) CBC (06/26/2025 8:09 AM EDT) [facility] White Blood Count 2.9(L) 4.8 - 10.8 X10*3/uL [facility] Red Blood Count 2.55(L) 4.60 - 5.80 X10*6/uL [facility] Hemoglobin 7.7(L) 14.0 - 18.0 g/dl [facility] Hematocrit 24.6(L) 42.0 - 52.0 % [facility] Mean Corpuscular Volume 96.5 80.0 - 98.0 fL [facility] Mean Corpuscular Hemoglobin 30.2 27.0 - 33.0 pg [facility] Mean Corpuscular HGB Conc 31.3 31.0 - 36.0 g/dl [facility] Red Cell Distribution Width 14.6 11.0 - 16.0 % [facility] Platelet Count 109(L) 160 - 400 X10*3/uL [facility] Mean Platelet Volume 10.8 9.4 - 12.4 fL [facility] NRBC Pct Auto 0.0 0.0 - 0.2 /100WBC [facility] NRBC Abs Auto 0.000 0.0 - 0.012 X10*3/uL [facility] 06/26/2025 8:09 AM EDT 06/26/2025 10:58 AM EDT Generic External Data Provider LAB BLOOD ORDERAB LES Final Result Performing Organization Address City/[facility]/ZIP Co de Phone Number [facility] [address] [place] [phone] * (ABNORMAL) Basic Metabolic Panel (06/26/2025 8:09 AM EDT) Sodium 141 135 - 145 mmol/L [facility] Potassium 3.6 3.3 - 5.1 mmol/L [facility] Chloride 111(H) 96 - 108 mmol/L [facility] Carbon Dioxide 22 22 - 29 mmol/L [facility] Anion Gap 12 12 - 20 [facility] Urea Nitrogen (BUN) 16 9 - 16 mg/dL [facility] Creatinine, Serum 1.90(H) 0.5 - 1.4 mg/dL [facility] Estimated Glomerular Filt Rate 34 [facility] Comment:Chronic Kidney Disea se: Estimated GFR < 60 mL/min/1.80m8Obnsqk Kidney Disease: Estimated GFR < 15 mL/min/1.73m2 Glucose 85 60 - 115 mg/dL [facility] Calcium 8.8 8.4 - 10.2 mg/dL [facility] 06/26/2025 8:09 AM EDT 06/26/2025 10:58 AM EDT us Generic External Data Provider LAB BLOOD ORDERAB LES Final Result [facility] [address] [place] [phone] * (ABNORMAL) Lipid Panel, Standard (01/16/2025 9:13 AM EDT) Triglycerides 40 <150 mg/dL [facility] Comment:Desirable Triglyceri de: less than 150 mg/dLBorderline High Triglyceride 150-199 mg/dLHigh Triglyceride: 200-499 mg/dLVery High Triglyceride: greater than or equal to 5OO mg/dL Cholesterol 93 <200 mg/dL [facility] Comment:Desirable Cholestero l: less than 200 mg/dLBorderline High Cholesterol: 200-239 mg/dLHigh Cholesterol: greater than 239 mg/dL LDL Cholesterol Calculated 58 <100 mg/dL [facility] Comment:Desirable LDL: less than 100 mg/dLNear Optimal/Above Optimal LDL: 110- 129 mg/dLBorderline High LDL: 130-159 mg/dLHigh LDL: 160-189 mg/dLVery High LDL: greater than or equal to 190 mg/dL HDL Cholesterol 27(L) >40 mg/dL [facility] Comment:Desirable HDL: great er than 40 mg/dL Note: This HDL assay may give artificially low results in patients with liver disease. Blood Venous blood specimen / Unknown 01/16/2025 9:13 AM EDT 01/16/2025 11:29 AM EDT us Pedro Julian MD LAB BLOOD ORDERABLES Final Result [facility] [address] [place] [phone] * BI Mammogram Diagnostic Tomosynthesis Bilateral (04/11/2024 3:15 PM EDT) Anatomical Region Laterality Modality Breast Bilateral Mammography 04/11/2024 3:15 PM EDT Narrative 04/11/2024 4:59 PM EDT [facility] [address] [place] [address] Mammography Report Signed Patient: Jamie Carpio MR#: [id number] : 1945 Acct:[id number] Age/Sex: 79 / M ADM Date: 04/11/24 Loc: HO.MAMMO Attending Dr: Pedro Webber MD Ordering Physician: Pedro Webber MD Resu lts: 2Benign Findings Date of Service: 04/11/24 Follow Up: 1 Year From [facility] Mammogram Procedure(s): MM tomosynthesis diagnostic BI Accession Number(s): [id number] cc: Pedro Webber MD EXAMINATION: MM DIAGNOSTIC [...] in OV> 04/11/24 1654 DD/ 1515 TD/TT: Grain Manager: Procedure Note Donotuseinterpreter, Image - 04/11/2024 [facility] [address] [place] [address] Mammography Report Signed Patient: Sofya CarpioWilton#: [id number] : 1945cct:[id number] Age/Sex: 79 / MADM Date: 04/11/24 Loc: HO.MAMMO Attending Dr: Pedro Webber MD Ordering Physician: Pedro Webber MDResu lts: 2Benign Findings Date of Service: 04/11/24Follow Up: 1 Year From [facility] Mammogram Procedure(s): MM tomosynthesis diagnostic BI Accession Number(s): [id number] cc: Pedro Webber MD EXAMINATION: MM DIAGNOSTIC [...] in OV> 04/11/24 1654 DD/ 1515 TD/TT: Grain Manager: Pedro Julian MD IMG BI PROCEDURES Fin al Result * HEPATITIS C AB W/REFL TO HCV RNA, QN, PCR (12/24/2021 8:24 AM EST) HEPATITIS C ANTIBODY NON-REACT SIL NON-REACT SIL [facility] INDEX 0.01 <1.00 [facility] Comment: HCV antibody was non-reactive. There is no laboratory evidence of HCV infection. In most cases, no further action is required. However, if recent HCV exposure is suspected, a test for HCV RNA (test code 03737) is suggested. For additional information please refer to http://education.[employer].hoopos.com/faq/TUZ02m7 (This link is being provided for informational/ educational purposes only.) 12/24/2021 8:24 AM EST Pedro Julian MD HISTORICAL/NON ORDERA BLE LABS Final Result [facility] [address] from Last 3 Months or Most Recently Relevant to Health Maintenance Insurance [facility] LONGTERM OPTIONS (O D-SNP) Care Teams Life Assurance Representative Relationship Specialty Start Date End Date Pedro Pulliam MD [address] [place] [address] PCP - General Internal Medicine 09/10/14 Niko Salamanca MD [address] [place] [address] Nephrology 01/16/25 Summer Wills MD [address] [place] [address] Hematology and Oncology 06/27/25
--- OUTSIDE RECORDS SUMMARY | 2025-08-08 14:13 | XMS_ITS | Clinical Summary ---
Author Organization [facility] Address [address] [place] [address] Care Team Providers Care Commercial Real Estate Agent Name Role Phone Unavailable Primary Care Provider [...] Documents on File Type Date Recorded Patient Claims Technician Expl anation Health Care Decision (hx) 01/10/2020 AD PHILLIP DIRECTIVE
--- OUTSIDE RECORDS SUMMARY | 2025-08-08 14:13 | XMS_ITS | Clinical Summary ---
Author Organization [email or web address] Address [address] [address] Care Team Providers Care Improvement Analyst Name Role Phone Pedro Snow MD Primary [...] age to complete this topic Care Teams Improvement Analyst Relationship Specialty Start Date End Date Pedro Snow MD PCP - General 11/18/20
--- OUTSIDE RECORDS SUMMARY | 2025-08-08 14:13 | XMS_ITS | Encounter Summary ---
Author Organization [employer] Address [address] [facility] 7t [place] [address] Care Team Providers Care Maintenance Equipment Operator Name Role Phone Pedro Pulliam MD Primary Care Provide r Niko Salamanca MD Unavailable [phone] Summer Wills MD Unavailable [phone] Reason for Visit * Reason Onset Date Comments Med Refill 2023 Encounter Details Date Type Department Care Team (Late st Contact Info) Description 2023 Refill [facility] MED[facility] [address] [place], [place] [phone] Pedro Pulliam MD [address] [place], [place] [phone] Atrial fibrillation, unspecified type (CMS/HCC) (Primary Dx) [...] Visit Diagnoses Diagnosis Atrial fibrillation, unspecified type (CMS/HCC) (HCC)- Primary documented in this encounter Care Teams Maintenance Equipment Operator Relationship Specialty Start Date End Date Pedro Pulliam MD [address] [place] [address] PCP - General Internal Medicine 09/10/14 Niko Salamanca MD [address] [place] [address] Nephrology 01/16/25 Summer Wills MD [address] [place] [address] Hematology and Oncology 06/27/25 documented as of this encounter
--- OUTSIDE RECORDS SUMMARY | 2025-08-08 14:13 | XMS_ITS | Encounter Summary ---
Author Organization [employer] Address [address] [facility] 7t [place] [address] Care Team Providers Care Tank Assembler Name Role Phone Pedro Pulliam MD Primary Care Provide r Niko Salamanca MD Unavailable [phone] Summer Wills MD Unavailable [phone] Encounter Details Date Type Department Care Team (Late st Contact Info) Description 02/01/2023 Orders Only [facility] [address] [place] [address] Shira Castano LPN Social History Tobacco Use [...] on filedocumented in this encounter Care Teams Tank Assembler Relationship Specialty Start Date End Date Pedro Pulliam MD [address] [place] [address] PCP - General Internal Medicine 09/10/14 Niko Salamanca MD [address] [place] [address] Nephrology 01/16/25 Summer Wills MD [address] [place] [address] Hematology and Oncology 06/27/25 documented as of this encounter
== END 2025-08-08 13:44 | disposition home or self-care (01) ==
LOC: HO.ACS 12:57
PROVIDERS: PCP Internal Medicine; Visit Provider Internal Medicine Medical Oncology
DX: Z79.01 Long term (current) use of anticoagulants (principal)

== ENCOUNTER → 2025-08-08 12:57 | Outpatient (BNVA) | payer OTHER, SELFPAY | PROVIDERS: PCP Internal Medicine; Visit Provider Internal Medicine Medical Oncology | DX: I48.0 Paroxysmal atrial fibrillation (principal); Z51.81 Encounter for therapeutic drug level monitoring; Z79.01 Long term (current) use of anticoagulants | CPT/HCPCS: 85610; 99211 ==

== ENCOUNTER 2025-08-10 11:33 | Outpatient (AMB) | payer OTHER, SELFPAY ==
[2025-08-10 11:48] LABS: Prothrombin Time Whole Bld POC 46.4 sec (11.1-13.5); ~PT, ~INR - Anti Coag Clinic 3.9 (0.9-1.1)
--- NOTE | 2025-08-10 12:06 | MHC.OFFVISCO ---
Intake Intake Visit Reasons: Anticoagulation Allergies No Known Allergies (No Known Allergies*) Allergy (Verified 08/10/25 11:39) Medication List - Last Reconciled 08/10/25 by Lisa Ruth RN amlodipine 5 mg PO DAILY atorvastatin 80 mg PO BEDTIME carbamide peroxide 6.5% (Ear Wax Removal Drops) 5 drps otic (ear) left BID cholecalciferol (vitamin D3) 25 mcg PO DAILY dorzolamide-timolol 22.3-6.8 mg/mL 22.3 drps ophthalmic (eye) BID ferrous sulfate (FeroSul) 1 tab PO DAILY furosemide 40 mg PO DAILY iron sucrose (Venofer) 200 mg IV Q3D octreotide acetate (Mycapssa) 20 mg PO DAILY Held on 11/20/22. Instructions: rejected by insurance terazosin 5 mg PO BEDTIME 90 days travoprost 0.004% 1 drp ophthalmic (eye) BEDTIME warfarin 5 mg See Protocol PO DAILY Nursing Note Pt came to appt with daughter Chaya who is a DIRECTOR TRADING and will be coming more to his appts and will be with him next appt INR 3.9 out of therapeutic range-pt just had INR 5.1 08/08/2025 Medications and supplements reviewed Patient status: low H+H blood tansfusions yesterday - states feeling better today Medications or supplements: no chnages Diet: poor - decreased appetite - eating only small amts Denies any signs and symptoms of bleeding or clotting or unusual bruising Bleeding, bruising, clotting discussed Nutritional guidance given: enc soft foods to easily absorb like eggs and avocado . may start supplement next week ensure or boost / day Dose: decrease warfarin dose to 2.5mg starting wednesday - hold today's dose F/U INR Date: 08/15/2025 same day as eye dr appt?? Patient verbalizing understanding of instructions given. Anti-Coag Initial Assessment Social Hx Patient Tobacco Use Status: Former Tobacco user Tobacco use type: Cigarette alcohol intake: former Alcohol intake frequency: does not drink Coding Level of Care Code Est Patient Level 1 Diagnoses Current use of anticoagulant therapy Z79.01 Assessment & Plan Assessment & Plan (1) Current use of anticoagulant therapy: Comment: warfarin-Otto Pfeiffer- need to confirm ok to stop 5 days prior to colonoscopy-unable to send note through expanse Patient aware this must be confirmed, there were no major barriers to understanding identified Code(s): Z79.01 - detention (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
--- OUTSIDE RECORDS SUMMARY | 2025-08-10 12:39 | XMS_ITS | Encounter Summary ---
Author Organization [employer] Address [address] [facility] 7t [place] [address] Care Team Providers Care Goldbeater Name Role Phone Pedro Pulliam MD Primary Care Provide r Niko Salamanca MD Unavailable [phone] Summer Wills MD Unavailable [phone] Reason for Visit * Reason Onset Date Comments Critical INR 08/08/2025 Encounter Details Date Type Department Care Team (Late st Contact Info) Description 08/08/2025 Telephone [facility] [address] [place], [place] [phone] Pedro Pulliam MD [address] [place], [place] [phone] Critical INR Social History Tobacco Use Types [...] 1:40 PM EDT Incoming call from the [facility] , Neena. Neena reported the [...] documented as of this encounter Care Teams Goldbeater Relationship Specialty Start Date End Date Pedro Pulliam MD [address] [place] [phone] PCP - General Internal Medicine 09/10/14 Niko Salamanca MD [address] [place] [address] Nephrology 01/16/25 Summer Wills MD [address] [place] [address] Hematology and Oncology 06/27/25 documented as of this encounter
--- OUTSIDE RECORDS SUMMARY | 2025-08-10 12:39 | XMS_ITS | Encounter Summary ---
Author Organization [employer] Address [address] [facility] 7t [place] [address] Care Team Providers Care Credit Specialist Name Role Phone Pedro Pulliam MD Primary Care Provide r Niko Salamanca MD Unavailable [phone] Summer Wills MD Unavailable [phone] Encounter Details Date Type Department Care Team (Late st Contact Info) Description 01/06/2023 Orders Only [facility] [address] [place] [address] Shira Castano LPN Social History Tobacco Use [...] filedocumented in this encounter Care Teams Credit Specialist Relationship Specialty Start Date End Date Pedro Pulliam MD [address] [place] [address] PCP - General Internal Medicine 09/10/14 Niko Salamanca MD [address] [place] [address] Nephrology 01/16/25 Summer Wills MD [address] [place] [address] Hematology and Oncology 06/27/25 documented as of this encounter
--- OUTSIDE RECORDS SUMMARY | 2025-08-10 12:39 | XMS_ITS | Encounter Summary ---
Author Organization [employer] Address [address] [place] [address] 7t [place] [address] Care Team Providers Care Donor Relations Associate Name Role Phone Pedro Pulliam MD Primary Care Provide r Niko Salamanca MD Unavailable [phone] Summer Wills MD Unavailable [phone] Encounter Details Date Type Department Care Team (Late st Contact Info) Description 05/31/2023 Orders Only [facility] [address] [place] [address] Shanita Pfeiffer LPN Social History Tobacco Use [...] on filedocumented in this encounter Care Teams Donor Relations Associate Relationship Specialty Start Date End Date Pedro Pulliam MD [address] [place] [address] PCP - General Internal Medicine 09/10/14 Niko Salamanca MD [address] [place] [address] Nephrology 01/16/25 Summer Wills MD [address] [place] [address] Hematology and Oncology 06/27/25 documented as of this encounter
--- OUTSIDE RECORDS SUMMARY | 2025-08-10 12:39 | XMS_ITS | Encounter Summary ---
Author Organization [employer] Address [address] 7t [place] [address] Care Team Providers Care Tonsorial Artist Name Role Phone Pedro Pulliam MD Primary Care Provide r Niko Salamanca MD Unavailable [phone] Summer Wills MD Unavailable [phone] Encounter Details Date Type Department Care [...] EDT) Protime 61.2(H) 11.1 - 13.5 sec [facility] 08/08/2025 1:10 PM EDT 08/08/2025 1:11 PM EDT us Generic External Data Provider LAB BLOOD ORDERAB LES Final Result Performing Organization Address City/State/[facility] Co de Phone Number [facility] [address] [place] [phone] * (ABNORMAL) ~PT, ~INR - ANTI COAG CLINIC (08/08/2025 1:10 PM EDT) Prothrombin Time INR 5.1(HH) 0.9 - 1.1 [facility] Comment:METER #: [id number] TERNATIONAL NORMALIZED RATIO (INR) REFERENCE RANGES Reference [...] LAB BLOOD ORDERAB LES Final Result [facility] [address] [place] [address] [phone] documented in this encounter Visit Diagnoses Not on filedocumented in this encounter Additional Health Concerns Assessment Noted Time PHQ-9 Depression Total Score: 0 10/17/20 24 1:50 PM EST documented as of this encounter Care Teams Tonsorial Artist Relationship Specialty Start Date End Date Pedro Pulliam MD [address] [place] [address] PCP - General Internal Medicine 09/10/14 Niko [place]amanca MD [address] [place] [address] Nephrology 01/16/25 Summer Wills MD [address] [place] [phone] Hematology and Oncology 06/27/25 documented as of this encounter
--- OUTSIDE RECORDS SUMMARY | 2025-08-10 12:40 | XMS_ITS | Clinical Summary ---
Author Organization [employer] Address [address] [facility] 7t [place] [address] Care Team Providers Care Chemical Research Engineer Name Role Phone Pedro Pulliam MD Primary Care Provide r Niko Salamanca MD Unavailable [phone] Summer Wills MD Unavailable [phone] Allergies No known active allergies Medications [...] pt currently undergoing PT with good results. [facility] 09/23/2023 Assessment & Plan (07/17/2025 2:10 PM [...] Zoster: 02/26/2015 Stage 3b chronic kidney disease ([facility]/HCC) 201809/15/2023 Assessment & Plan (07/17/2025 1:53 PM [...] showed diverticulosis only by Dr connors at [facility] Mixed hyperlipidemia 08/13/2015 09/15/2023 Assessment & Plan [...] the past by his vascular surgeon at [facility] (Dr Lind) whose recommendation was conservative treatment, he saw NO role for any type of surgical intervention. He recommended to repeat the scan in 1 year and continue to take Asa 81 mg po daily. Pt was last seen by his groundskeeper porter at [facility] 09/14/2023 [...] and lasix 20 mg daily prescribed by Corporate Quality Assurance Manager. Off Lisinopril 40 mg po daily (stopped by Car Dryer 04/01) I had lowered his Lasix due [...] and lasix 20 mg daily prescribed by Corporate Quality Assurance Manager. Pt is off Lisinopril 40 mg po daily (stopped by Car Dryer 04/01) I had recently lowered his Lasix [...] and lasix 20 mg daily prescribed by Corporate Quality Assurance Manager. I had recently lowered his Lasix [...] and lasix 20 mg daily prescribed by Corporate Quality Assurance Manager. I had recently lowered his Lasix [...] Am and 20 mg PM prescribed by Corporate Quality Assurance Manager. I had recently lowered his Lasix [...] Am and 20 mg PM prescribed by Corporate Quality Assurance Manager. Pt developed some bilateral ankle edema [...] Furosemide 20 mg po BID prescribed by Corporate Quality Assurance Manager. Pt developed some bilateral ankle edema [...] Furosemide 20 mg po BID prescribed by Corporate Quality Assurance Manager. Pt developed some bilateral ankle edema [...] clinical impression. Plan: Breast center referral at [facility] Assessment & Plan (02/01/2024 1:36 PM EDT): [...] Encounters Date Type Department Care Team Description 08/10/2025 Orders Only GENERIC EXTERNAL DATA DEPARTMENT Provider, Generic External Data 08/08/[address] [facility] [address] [place] [address] Pedro Pulliam MD Critical INR 08/08/2025 Orders Only GENERIC EXTERNAL DATA DEPARTMENT Provider, Generic External Data 07/25/2025 Orders Only GENERIC EXTERNAL DATA DEPARTMENT Provider, Generic External Data 07/17/2025 2:00 PM EDT Office Visit [facility] [address] [place] [address] Pedro Pulliam MD Primary hypertension (Primary Dx); Stage 3b chronic kidney disease (CMS/HCC); Longstanding persistent atrial fibrillation (CMS/HCC); Primary open angle glaucoma (POAG) of both eyes, indeterminate stage; Gynecomastia; Bilateral leg edema; KARINA (obstructive sleep apnea); Sciatica of left side; Benign prostatic hyperplasia with urinary frequency; Preventative health care 07/17/2025 Travel 07/16/[address] [facility] [address] [facility] [place] [address] Pedro Pulliam MD chart prep 07/11/2025 Orders Only GENERIC EXTERNAL DATA DEPARTMENT Provider, Generic External Data 07/04/2025 Orders Only GENERIC EXTERNAL DATA DEPARTMENT Provider, Generic External Data 06/27/2025 Orders Only GENERIC EXTERNAL DATA DEPARTMENT Provider, Generic External Data 06/26/2025 Results Follow-Up [facility] [address] [place] [address] Avis Koenig MD CBC, Basic Metabolic Panel, PSA, Total With Reflex to PSA, Free 06/26/2025 Orders Only GENERIC EXTERNAL DATA DEPARTMENT Provider, Generic External Data 05/30/2025 Orders Only GENERIC EXTERNAL DATA DEPARTMENT Provider, Generic External Data 05/23/[address] [facility] [address] [facility] [place] [address] Pedro Pulliam MD Medication Question 05/21/[address] [facility] [address] [place] [address] Avis Koenig MD Atrial fibrillation, unspecified type ([facility]/HCC) 05/17/[address] [facility] [address] [place] [address] Avis Koenig MD Vitamin D deficiency from Last 3 Months Immunizations Immunization Administration Dates Next Due Influenza High-dose Quadriva lent Preservative Free 09/23/2023,08/07/2021,10/11/2020 Influenza injectable quadriv alent IIV4 with preservative 11/09/2017,09/17/2016,08/13/2015 Influenza injectable quadriv alent preservative free 09/29/2022,08/17/2019,10/11/2018 Influenza, High Dose Seasona l, Preservative Free 08/03/2024 Influenza, IIV3, injectable 10/25/2014, 1 Influenza, Split (incl. vinayka fied surface antigen) 10/02/2013,08/04/2012 Pneumococcal Conjugate PCV [...] Comments PROTHROMBIN TIME WHOLE BLD POC Routine 08/10/2025 11:46 AM EDT ~PT, ~INR - ANTI COAG CLINIC Routine 08/10/2025 11:46 AM EDT PROTHROMBIN TIME WHOLE BLD POC Routine 08/08/2025 [...] * (ABNORMAL) PROTHROMBIN TIME WHOLE BLD POC (08/10/2025 11:46 AM EDT) Only the most recent of7 resultswithin the time period is included. Protime 46.4(H) 11.1 - 13.5 sec [facility] 08/10/2025 11:4 6 AM EDT 08/10/2025 11:48 AM EDT us Generic External Data Provider LAB BLOOD ORDERAB LES Final Result Performing Organization Address City/[facility]/ZIP Co de Phone Number [facility] [address] [place] [phone] * (ABNORMAL) ~PT, ~INR - ANTI COAG CLINIC (08/10/2025 11:46 AM EDT) Only the most recent of7 resultswithin the time period is included. Prothrombin Time INR 3.9(H) 0.9 - 1.1 [facility] Comment:METER #: [id number] TERNATIONAL NORMALIZED RATIO (INR) REFERENCE RANGES Reference RangeFor patients not on anticoagulant therapy: 0.9 - 1.1INR ranges for oral anticoagulanttherapy:For prevention and treatment of venous thrombosis and pulmonary embolism: 2.0 - 3.0For acute myocardial infarction with aspirin therapy: 2.0 - 3.0For acute myocardial infarction without aspirin therapy: 3.0 - 4.0For patients with mechanical prosthetic heart valves: 2.5 - 3.5 08/10/2025 11:4 6 AM EDT 08/10/2025 11:48 AM EDT Generic External Data Provider LAB BLOOD ORDERAB LES Final Result Performing Organization Address City/[facility]/ZIP Co de Phone Number [facility] [address] [place] [phone] * (ABNORMAL) PSA, Free and Total (06/26/2025 12:16 PM EDT) PSA, Total 5.6(A) < OR = 4.0 ng/mL [facility] PSA % Free 38 >25 % (calc) [facility] Comment: PSA(ng/mL) Free PSA(%) Estimated(x) Probability of Cancer(as%)0-2.5 (*) Approx. 12.6-4.0(1) 0-27(2) 24(3)4.1-10(4) 0-10 56 11-15 28 16-20 20 21-25 16 >or =26 8>10(+) N/A >50References:(1)Tc et al.:Urology 60: 469-474 (2002) (2)Tc et al.:J.Urol 168: 922-925 (2001) Free PSA(%) Sensitivity(%) Specificity(%) < or = 25 85 19 < or = 30 93 9 (3)Catalona et al.:MARLEEN 277: 9965-7209 (1996) (4)Catalona et al.:MARLEEN 279: 1913-2328 (1997)(x)These estimates vary with age, ethnicity, family [...] presence or absence ofdisease.THIS TEST WAS PERFORMED AT:[employer] [facility] [place] [phone] SEGURA MD PSA, Free 2.1 ng/mL [facility] 06/26/2025 12:1 6 PM EDT 06/26/2025 12:16 PM EDT us Generic External Data Provider LAB BLOOD ORDERAB LES Final Result [facility] [address] [place] [phone] * (ABNORMAL) PSA, Total With Reflex to PSA, Free (06/26/2025 8:09 AM EDT) PSA,Total (Free>4and<10) 6.40(H) 0.00 - 4.00 ng/mL [facility] Comment:PSA methodology: Abb reina Gillespie i ChemiluminescentMicroparticle Immunoassay (CMIA) 06/26/2025 8:09 AM EDT 06/26/2025 10:58 AM EDT us Generic External Data Provider LAB BLOOD ORDERAB LES Final Result [facility] [address] [place] [phone] * (ABNORMAL) CBC (06/26/2025 8:09 AM EDT) White Blood Count 2.9(L) 4.8 - 10.8 X10*3/uL [facility] Red Blood Count 2.55(L) 4.60 - 5.80 X10*6/uL [facility] Hemoglobin 7.7(L) 14.0 - 18.0 g/dl [facility] Hematocrit 24.6(L) 42.0 - 52.0 % [facility] Mean Corpuscular Volume 96.5 80.0 - 98.0 fL [facility] Mean Corpuscular Hemoglobin 30.2 27.0 - 33.0 pg [facility] Mean Corpuscular HGB Conc 31.3 31.0 - 36.0 g/dl [facility] Red Cell Distribution Width 14.6 11.0 - 16.0 % [facility] Platelet Count 109(L) 160 - 400 X10*3/uL [facility] Mean Platelet Volume 10.8 9.4 - 12.4 fL [facility] NRBC Pct Auto 0.0 0.0 - 0.2 /100WBC [facility] NRBC Abs Auto 0.000 0.0 - 0.012 X10*3/uL [facility] 06/26/2025 8:09 AM EDT 06/26/2025 10:58 AM EDT us Generic External Data Provider LAB BLOOD ORDERAB LES Final Result Performing Organization Address [facility]/ZIP Co de Phone Number [facility] [address] [place] [address] [phone] * (ABNORMAL) Basic Metabolic Panel (06/26/2025 8:09 AM EDT) Sodium 141 135 - 145 mmol/L [facility] Potassium 3.6 3.3 - 5.1 mmol/L [facility] Chloride 111(H) 96 - 108 mmol/L [facility] Carbon Dioxide 22 22 - 29 mmol/L [facility] Anion Gap 12 12 - 20 [facility] Urea Nitrogen (BUN) 16 9 - 16 mg/dL [facility] Creatinine, Serum 1.90(H) 0.5 - 1.4 mg/dL [facility] Estimated Glomerular Filt Rate 34 [facility] Comment:Chronic Kidney Disea se: Estimated GFR < 60 mL/min/1.42c1Kesygh Kidney Disease: Estimated GFR < 15 mL/min/1.73m2 Glucose 85 60 - 115 mg/dL [facility] Calcium 8.8 8.4 - 10.2 mg/dL [facility] 06/26/2025 8:09 AM EDT 06/26/2025 10:58 AM EDT Generic External Data Provider LAB BLOOD ORDERAB LES Final Result Performing Organization Address [facility]/ZIP Co de Phone Number [facility] [address] [place] [address] [phone] * (ABNORMAL) Lipid Panel, Standard (01/16/2025 9:13 AM EDT) Triglycerides 40 <150 mg/dL [facility] Comment:Desirable Triglyceri de: less than 150 mg/dLBorderline High Triglyceride 150-199 mg/dLHigh Triglyceride: 200-499 mg/dLVery High Triglyceride: greater than or equal to 5OO mg/dL Cholesterol 93 <200 mg/dL [facility] Comment:Desirable Cholestero l: less than 200 mg/dLBorderline High Cholesterol: 200-239 mg/dLHigh Cholesterol: greater than 239 mg/dL LDL Cholesterol Calculated 58 <100 mg/dL [facility] Comment:Desirable LDL: less than 100 mg/dLNear Optimal/Above Optimal LDL: 110- 129 mg/dLBorderline High LDL: 130-159 mg/dLHigh LDL: 160-189 mg/dLVery High LDL: greater than or equal to 190 mg/dL HDL Cholesterol 27(L) >40 mg/dL [facility] Comment:Desirable HDL: great er than 40 mg/dL Note: This HDL assay may give artificially low results in patients with liver disease. Blood Venous blood specimen / Unknown 01/16/2025 9:13 AM EDT 01/16/2025 11:29 AM EDT us Pedro Julian MD LAB BLOOD ORDERABLES Final Result Performing Organization Address City/State/[facility] Co de Phone Number [facility] [address] [place] [phone] * BI Mammogram Diagnostic Tomosynthesis Bilateral (04/11/2024 3:15 PM EDT) Anatomical Region Laterality Modality Breast Bilateral Mammography 04/11/2024 3:15 PM EDT Narrative 04/11/2024 4:59 PM EDT [facility] [address] [place] [address] Mammography Report Signed Patient: Jamie Carpio MR#: [id number] : 1945 Acct:[id number] Age/Sex: 79 / M ADM Date: 04/11/24 Loc: HO.MAMMO Attending Dr: Pedro Webber MD Ordering Physician: Pedro Webber MD Resu lts: 2Benign Findings Date of Service: 04/11/24 Follow Up: 1 Year From Orig inal Mammogram Procedure(s): MM tomosynthesis diagnostic BI Accession Number(s): [id number] cc: Pedro Webber MD EXAMINATION: MM DIAGNOSTIC [...] in OV> 04/11/24 1654 DD/ 1515 TD/TT: [employer] Product Consultant: Procedure Note Donotuseinterpreter, Image - 04/11/2024 [facility] [address] [place] [address] Dr. Mckeon, CHERYLE [address] Mammography Report Signed Patient: Rik Carpio#: [id number] : 6Acct:[id number] Age/Sex: 79 / MADM Date: 04/11/24 Loc: HO.MAMMO Attending Dr: Pedro Webber MD Ordering Physician: Pedro Webber MDResu lts: 2Benign Findings Date of Service: 04/11/24Follow Up: 1 Year From Orig inal Mammogram Procedure(s): MM tomosynthesis diagnostic BI Accession Number(s): [id number] cc: Pedro Webber MD EXAMINATION: MM DIAGNOSTIC [...] in OV> 04/11/24 1654 DD/ 1515 TD/TT: [employer] Product Consultant: Pedro Julian MD IMG BI PROCEDURES Fin al Result * HEPATITIS C AB W/REFL TO HCV RNA, QN, PCR (12/24/2021 8:24 AM EST) HEPATITIS C ANTIBODY NON-REACT SIL NON-REACT SIL [facility] INDEX 0.01 <1.00 [facility] Comment: HCV antibody was non-reactive. There is no laboratory evidence of HCV infection. In most cases, no further action is required. However, if recent HCV exposure is suspected, a test for HCV RNA (test code 84184) is suggested. For additional information please refer to http://education.betaworks.VouchAR/faq/MJM17r0 (This link is being provided for informational/ educational purposes only.) 12/24/2021 8:24 AM EST Pedro Julian MD HISTORICAL/NON ORDERA BLE LABS Final Result [facility] [address] from Last 3 Months or Most Recently Relevant to Health Maintenance Insurance [address] CHERYLE Webber [facility] OPTIONS (HMO D-SNP) ANTOINE WANG [id number] Care Teams Chemical Research Engineer Relationship Specialty Start Date End Date Pedro Pulliam MD [address] [place] [address] PCP - General Internal Medicine 09/10/14 Niko [place]am[place] MD [address] [place] [address] Nephrology 01/16/25 Summer Wills MD [address] [place] [address] Hematology and Oncology 06/27/25
--- OUTSIDE RECORDS SUMMARY | 2025-08-10 12:40 | XMS_ITS | Encounter Summary ---
Author Organization [employer] Address [address] [facility] 7t [place] [address] Care Team Providers Care Survey Associate Name Role Phone Pedro Pulliam MD Primary Care Provide r Niko Salamanca MD Unavailable [phone] Summer Wills MD Unavailable [phone] Reason for Visit * Reason Onset Date Comments Med Refill 2023 Encounter Details Date Type Department Care Team (Late st Contact Info) Description 2023 Refill [facility] [address] [place], [place] [phone] Pedro Pulliam MD [address] [place], [place] [phone] Atrial fibrillation, unspecified type (CMS/HCC) (Primary Dx) [...] Primary documented in this encounter Care Teams Survey Associate Relationship Specialty Start Date End Date Pedro Pulliam MD [address] [place] [address] PCP - General Internal Medicine 09/10/14 Niko Salam[place] MD [address] [place] [address] Nephrology 01/16/25 Summer Wills MD [address] [place] [address] Hematology and Oncology 06/27/25 documented as of this encounter
--- OUTSIDE RECORDS SUMMARY | 2025-08-10 12:40 | XMS_ITS | Encounter Summary ---
Author Organization [facility] Address [address] [place] [phone] Phone Care Team Providers Care Manager Of Distribution Name Role Phone Unavailable Primary Care Provider Unavailabl e Encounter Details Date Type Department Care Team (Late st Contact Info) Description 10/28/2018 Ancillary Orders [facility] [address] [place] [address] [place] [address] Felton Triana MD [address] [place] [address] [email or web address] Bradycardia Social History Tobacco Use Types [...] It is not the complete legal health record.[facility]
--- OUTSIDE RECORDS SUMMARY | 2025-08-10 12:40 | XMS_ITS | Encounter Summary ---
Author Organization [employer] Address [address] [facility] 7t [place] [address] Care Team Providers Care Resource Conservation Manager Name Role Phone Pedro Pulliam MD Primary Care Provide r Niko Salamanca MD Unavailable [phone] Summer Wills MD Unavailable [phone] Reason for Visit * Reason Onset Date Comments OV 03/1602/17/2024 Encounter Details Date Type Department Care Team (Late st Contact Info) Description 02/17/2024 Telephone [facility] [address] [place], [place] [phone] Pedro Pulliam MD [address] [place], [place] [phone] OV 03/16 Social History Tobacco Use Types [...] any questions you can contact pt at [phone]. documented in this encounter Plan of Treatment Not on file documented as of this encounter Visit Diagnoses Not on filedocumented in this encounter Additional Health Concerns Assessment Noted Time PHQ-9 Depression Total Score: 1 09/23/20 23 1:21 PM EST documented as of this encounter Care Teams Resource Conservation Manager Relationship Specialty Start Date End Date Pedro Pulliam MD [address] [place] [address] PCP - General Internal Medicine 09/10/14 Niko [place]am[place] MD [address] [place] [address] Nephrology 01/16/25 Summer Wills MD [address] [place] [address] Hematology and Oncology 06/27/25 documented as of this encounter
--- OUTSIDE RECORDS SUMMARY | 2025-08-10 12:40 | XMS_ITS | Clinical Summary ---
Author Organization [facility] Address [address] [address] Phone Care Team Providers Care Railroad Dining Car Stewardess Name Role Phone Unavailable Primary Care Provider [...] file Medical Devices Not on file [facility] ANTOINE WANG [id number] [place] [address] MEDICARE REPLACEMENT [facility] MEDICARE REPLACEMENT [facility] MEDICARE [place]PL[place] [address] MEDICARE REPLACEMENT [address] [employer] [place] [facility] MEDICARE REPLACEMENT [facility] MEDICARE REPLACEMENT [facility] MEDICARE REPLACEMENT [facility] MEDICARE REPLACEMENT Additional Source Comments The information contained in this document represents components of the legal health record. It is not the complete legal health record.[facility]
--- OUTSIDE RECORDS SUMMARY | 2025-08-10 12:40 | XMS_ITS | Patient Health Record ---
Author Organization [facility] Address [address] [place] [address] Care Team Providers Care Cashier And Waiter/Waitress Name Role Phone Gwendolyn Julian MD, Pedro Primary Care Provide r Unavailable Favian Hardin Jr Unavailable Reason For Referral No Information Plan Of Treatment No Information Insurance Providers Payer Name Payer Address Payer Phone Subscriber Number Group Number Insured Name Patient Relationship to Insured Coverage Start Date Coverage End Date MEDICARE OF [facility] [address] [facility] [place] [id number] LILY RINCON Self - patient is the insured
--- OUTSIDE RECORDS SUMMARY | 2025-08-10 12:40 | XMS_ITS | Encounter Summary ---
Author Organization [employer] Address [address] [facility] 7t [place] [address] Care Team Providers Care Sponge Fisherman Name Role Phone Pedro Pulliam MD Primary Care Provide r Niko [place]am[place] MD Unavailable [phone] Summer Wills MD Unavailable [phone] Encounter Details Date Type Department Care Team (Late st Contact Info) Description 02/01/2023 Orders Only [facility] [address] [place] [address] Shira Castano LPN Social History Tobacco Use [...] on filedocumented in this encounter Care Teams Sponge Fisherman Relationship Specialty Start Date End Date Pedro Pulliam MD [address] [place] [address] PCP - General Internal Medicine 09/10/14 Niko [place] MD [address] [place] [address] Nephrology 01/16/25 Summer Wills MD [address] [place] [address] Hematology and Oncology 06/27/25 documented as of this encounter
--- OUTSIDE RECORDS SUMMARY | 2025-08-10 12:40 | XMS_ITS | Encounter Summary ---
Author Organization [facility] Address [address] [place] [address] Phone Care Team Providers Care Pasteurizing Machine Operator Name Role Phone Unavailable Primary Care Provider Unavailabl e Encounter Details Date Type Department Care Team (Late st Contact Info) Description 10/28/2018 Ancillary Orders [facility] [address] [facility] 3rd Floor, [address] [place], [place] [phone] Felton Triana MD [address] [place] [phone] [email or web address] Social History Tobacco Use [...] It is not the complete legal health record.[facility]
--- OUTSIDE RECORDS SUMMARY | 2025-08-10 12:40 | XMS_ITS | Clinical Summary ---
Author Organization [facility] Address [address] [address] Care Team Providers Care Oracle Scm Consultant Name Role Phone Pedro Snow MD Primary [...] age to complete this topic Care Teams Oracle Scm Consultant Relationship Specialty Start Date End Date Pedro Snow MD PCP - General 11/18/20
--- OUTSIDE RECORDS SUMMARY | 2025-08-10 12:40 | XMS_ITS | Encounter Summary ---
Author Organization [employer] Address [address] [place] [address] 7t [place] [address] Care Team Providers Care Hand Profiler Name Role Phone Pedro Pulliam MD Primary Care Provide r Niko Salamanca MD Unavailable [phone] Summer Wills MD Unavailable [phone] Encounter Details Date Type Department Care Team (Late st Contact Info) Description 02/25/2023 Orders Only [facility] [address] [place] [address] Shanita Pfeiffer LPN Social History Tobacco Use [...] on filedocumented in this encounter Care Teams Hand Profiler Relationship Specialty Start Date End Date Pedro Pulliam MD [address] [place] [address] PCP - General Internal Medicine 09/10/14 Niko Salamanca MD [address] [place] [address] Nephrology 01/16/25 Summer Wills MD [address] [place] [address] Hematology and Oncology 06/27/25 documented as of this encounter
--- OUTSIDE RECORDS SUMMARY | 2025-08-10 12:40 | XMS_ITS | Clinical Summary ---
Author Organization [employer] Address [address] [place] [address] Care Team Providers Care Contour Stitcher Name Role Phone Unavailable Primary Care Provider [...] Documents on File Type Date Recorded Patient Agricultural Production Engineer Expl anation Health Care Decision (hx) 01/10/2020 AD PHILLIP DIRECTIVE
--- OUTSIDE RECORDS SUMMARY | 2025-08-10 12:40 | XMS_ITS | Encounter Summary ---
Author Organization [employer] Address [address] 7t [place] [address] Care Team Providers Care Heating Element Builder Name Role Phone Pedro Pulliam MD Primary Care Provide r Niko Salamanca MD Unavailable [phone] Summer Wills MD Unavailable Encounter Details Date Type Department Care Team (Late st Contact Info) Description 08/10/2025 Orders Only GENERIC EXTERNAL DATA [...] [facility]IN[facility] Routine 08/10/2025 11:46 AM EDT documented in this encounter Results * (ABNORMAL) PROTHROMBIN TIME WHOLE BLD POC (08/10/2025 11:46 AM EDT) Protime 46.4(H) 11.1 - 13.5 sec [facility] 08/10/2025 11:4 6 AM EDT 08/10/2025 11:48 AM EDT us Generic External Data Provider LAB BLOOD ORDERAB LES Final Result Performing Organization Address City/State/[facility] Co de Phone Number [facility] [address] [place] [phone] * (ABNORMAL) ~PT, ~INR - ANTI COAG CLINIC (08/10/2025 11:46 AM EDT) Prothrombin Time INR 3.9(H) 0.9 - 1.1 [facility] Comment:METER #: [id number] TERNATIONAL NORMALIZED RATIO (INR) REFERENCE RANGES Reference [...] Provider LAB BLOOD ORDERAB LES Final Result [facility] [address] [place] [address] [phone] documented in this encounter Visit Diagnoses Not on filedocumented in this encounter Additional Health Concerns Assessment Noted Time PHQ-9 Depression Total Score: 0 10/17/20 24 1:50 PM EST documented as of this encounter Care Teams Heating Element Builder Relationship Specialty Start Date End Date Pedro Pulliam MD [address] [place] [address] PCP - General Internal Medicine 09/10/14 Niko Salamanca MD [address] [place] [address] Nephrology 01/16/25 Summer Wills MD [address] [place] [address] Hematology and Oncology 06/27/25 documented as of this encounter
--- OUTSIDE RECORDS SUMMARY | 2025-08-10 12:40 | XMS_ITS | Encounter Summary ---
Author Organization [employer] Address [address] 7t [place] [address] Care Team Providers Care Egg Processing Supervisor Name Role Phone Pedro Pulliam MD Primary Care Provide r Niko Salamanca MD Unavailable [phone] Summer Wills MD Unavailable [phone] Reason for Visit * Reason Comments Med Refill Encounter Details Date Type Department Care Team (Late st Contact Info) Description 06/02/2024 Refill [facility] [address] [place], [place] [phone] Pedro Pulliam MD [address] [place], [place] [phone] Primary hypertension; Stage 3 chronic kidney disease, [...] whether stage 3a or 3b CKD (CMS/HCC) ([facility]) Nonrheumatic tricuspid valve regurgitation documented in this encounter Additional Health Concerns Assessment Noted Time PHQ-9 Depression Total Score: 1 09/23/20 23 1:21 PM EST documented as of this encounter Care Teams Egg Processing Supervisor Relationship Specialty Start Date End Date Pedro Pulliam MD [address] [place] [address] PCP - General Internal Medicine 09/10/14 Niko Salamanca MD [address] [place] [address] Nephrology 01/16/25 Summer Wills MD [address] [place] [address] Hematology and Oncology 06/27/25 documented as of this encounter
== END 2025-08-10 12:49 | disposition home or self-care (01) ==
LOC: HO.ACS 11:33
PROVIDERS: PCP Internal Medicine; Visit Provider Internal Medicine Medical Oncology
DX: Z79.01 Long term (current) use of anticoagulants (principal)

== ENCOUNTER → 2025-08-10 11:33 | Outpatient (BNVA) | payer OTHER, SELFPAY | PROVIDERS: PCP Internal Medicine; Visit Provider Internal Medicine Medical Oncology | DX: I48.0 Paroxysmal atrial fibrillation (principal); Z79.01 Long term (current) use of anticoagulants; Z51.81 Encounter for therapeutic drug level monitoring | CPT/HCPCS: 85610; 99211 ==

== ENCOUNTER 2025-08-15 13:04 | Outpatient (AMB) | payer OTHER, SELFPAY ==
[2025-08-15 13:18] LABS: Prothrombin Time Whole Bld POC 22.0 sec (11.1-13.5); ~PT, ~INR - Anti Coag Clinic 1.8 (0.9-1.1)
--- NOTE | 2025-08-15 13:21 | MHC.OFFVISCO ---
Intake Intake Visit Reasons: Anticoagulation Allergies No Known Allergies (No Known Allergies*) Allergy (Verified 08/15/25 13:06) Medication List - Last Reconciled 08/15/25 by Neena Boyce RN amlodipine 5 mg PO DAILY atorvastatin 80 mg PO BEDTIME carbamide peroxide 6.5% (Ear Wax Removal Drops) 5 drps otic (ear) left BID cholecalciferol (vitamin D3) 25 mcg PO DAILY dorzolamide-timolol 22.3-6.8 mg/mL 22.3 drps ophthalmic (eye) BID ferrous sulfate (FeroSul) 1 tab PO DAILY furosemide 40 mg PO DAILY iron sucrose (Venofer) 200 mg IV Q3D octreotide acetate (Mycapssa) 20 mg PO DAILY Held on 11/20/22. Instructions: rejected by insurance terazosin 5 mg PO BEDTIME 90 days travoprost 0.004% 1 drp ophthalmic (eye) BEDTIME warfarin 5 mg See Protocol PO DAILY Nursing Note NO CP,SOB,DIET/MED CHANGES,FALLS OR SX OF BLEEDING. PT.APPEARS LESS TIRED TODAY. HAS BLOOD WORK ON 08/30. BOOST TO 5MGM TODAY THEN 2.5MGM DAILY AND FOLLOW-UP IN `1 WEEK. Anti-Coag Initial Assessment Social Hx Patient Tobacco Use Status: Former Tobacco user Tobacco use type: Cigarette alcohol intake: former Alcohol intake frequency: does not drink Coding Level of Care Code Est Patient Level 1 Diagnoses Current use of anticoagulant therapy Z79.01 Results AMB INR Fingerstick AMB INR Fingerstick 1.8 Last Edit by Neena Boyce RN on 08/15/25 13:16 Assessment & Plan Assessment & Plan (1) Current use of anticoagulant therapy: Comment: warfarin-Otto Margarette- need to confirm ok to stop 5 days prior to colonoscopy-unable to send note through expanse Patient aware this must be confirmed, there were no major barriers to understanding identified Code(s): Z79.01 - correction (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
== END 2025-08-15 13:23 | disposition home or self-care (01) ==
LOC: HO.ACS 13:04
PROVIDERS: PCP Internal Medicine; Visit Provider Internal Medicine Medical Oncology
DX: Z79.01 Long term (current) use of anticoagulants (principal)

== ENCOUNTER → 2025-08-15 13:04 | Outpatient (BNVA) | payer OTHER, SELFPAY | PROVIDERS: PCP Internal Medicine; Visit Provider Internal Medicine Medical Oncology | DX: I48.0 Paroxysmal atrial fibrillation (principal); Z79.01 Long term (current) use of anticoagulants; Z51.81 Encounter for therapeutic drug level monitoring | CPT/HCPCS: 85610; 99211 ==

== ENCOUNTER 2025-08-22 11:22 | Outpatient (AMB) | payer OTHER, SELFPAY ==
[2025-08-22 11:28] LABS: Prothrombin Time Whole Bld POC 23.8 sec (11.1-13.5); ~PT, ~INR - Anti Coag Clinic 2.0 (0.9-1.1)
--- NOTE | 2025-08-22 11:33 | MHC.OFFVISCO ---
Intake Intake Visit Reasons: Anticoagulation Allergies No Known Allergies (No Known Allergies*) Allergy (Verified 08/22/25 11:24) Medication List - Last Reconciled 08/22/25 by Neena Boyce RN amlodipine 5 mg PO DAILY atorvastatin 80 mg PO BEDTIME carbamide peroxide 6.5% (Ear Wax Removal Drops) 5 drps otic (ear) left BID cholecalciferol (vitamin D3) 25 mcg PO DAILY dorzolamide-timolol 22.3-6.8 mg/mL 22.3 drps ophthalmic (eye) BID ferrous sulfate (FeroSul) 1 tab PO DAILY furosemide 40 mg PO DAILY iron sucrose (Venofer) 200 mg IV Q3D octreotide acetate (Mycapssa) 20 mg PO DAILY Held on 11/20/22. Instructions: rejected by insurance terazosin 5 mg PO BEDTIME 90 days travoprost 0.004% 1 drp ophthalmic (eye) BEDTIME warfarin 5 mg See Protocol PO DAILY Nursing Note NO CP,SOB,DIET/MED CHANGES,FALLS OR SX OF BLEEDING. PT.STATES THAT HE HAS A BIT MORE ENERGY THIS WEEK, AND IS MORE INTERACTIVE TODAY. INCREASE WEEKLY DOSE SLIGHTLY TO ALLOW FOR VITAMIN K RICH FOODS. GOOD UNDERSTANDING OF DOSING INSTR. Anti-Coag Initial Assessment Social Hx Patient Tobacco Use Status: Former Tobacco user Tobacco use type: Cigarette alcohol intake: former Alcohol intake frequency: does not drink Coding Level of Care Code Est Patient Level 1 Diagnoses Current use of anticoagulant therapy Z79.01 Assessment & Plan Assessment & Plan (1) Current use of anticoagulant therapy: Comment: warfarin-Otto Pfeiffer- need to confirm ok to stop 5 days prior to colonoscopy-unable to send note through expanse Patient aware this must be confirmed, there were no major barriers to understanding identified Code(s): Z79.01 - USP (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
--- OUTSIDE RECORDS SUMMARY | 2025-08-22 14:09 | XMS_ITS | Encounter Summary ---
Author Organization [employer] Address [address] [facility] 7t [place] [address] Care Team Providers Care Blanchard Grinder Operator Name Role Phone Pedro Pulliam MD Primary Care Provide r Niko Salamanca MD Unavailable [phone] Summer Wills MD Unavailable [phone] Encounter Details Date Type Department Care Team (Late st Contact Info) Description 01/06/2023 Orders Only [facility] [address] [place] [address] Shira Castano LPN Social History Tobacco Use [...] on filedocumented in this encounter Care Teams Blanchard Grinder Operator Relationship Specialty Start Date End Date Pedro Pulliam MD [address] [place] [address] PCP - General Internal Medicine 09/10/14 Niko Salamanca MD [address] [place] [address] Nephrology 01/16/25 Summer Wills MD [address] [place] [address] Hematology and Oncology 06/27/25 documented as of this encounter
--- OUTSIDE RECORDS SUMMARY | 2025-08-22 14:09 | XMS_ITS | Encounter Summary ---
Author Organization [employer] Address [address] [facility] 7t [place] [address] Care Team Providers Care Cnc Mill Programmer Name Role Phone Pedro Pulliam MD Primary Care Provide r Niko Salamanca MD Unavailable [phone] Summer Wills MD Unavailable [phone] Reason for Visit * Reason Comments Med Refill Encounter Details Date Type Department Care Team (Late st Contact Info) Description 08/19/2025 Refill [facility] [address] [place], [place] [phone] Pedro Pulliam MD [address] [place], [place] [phone] Vitamin D deficiency Social History Tobacco Use Types Packs/Day Years [...] as of this encounter Visit Diagnoses Diagnosis Vitamin D deficiency documented in this encounter Additional Health Concerns Assessment Noted Time PHQ-9 Depression Total Score: 0 10/17/20 24 1:50 PM EST documented as of this encounter Care Teams Cnc Mill Programmer Relationship Specialty Start Date End Date Pedro Pulliam MD [address] [place] [address] PCP - General Internal Medicine 09/10/14 Niko Salamanca MD [address] [place] [address] Nephrology 01/16/25 Summer Wills MD [address] [place] [address] Hematology and Oncology 06/27/25 documented as of this encounter
--- OUTSIDE RECORDS SUMMARY | 2025-08-22 14:09 | XMS_ITS | Encounter Summary ---
Author Organization [employer] Address [address] 7t [place] [address] Care Team Providers Care Kiln Operator Name Role Phone Pedro Pulliam MD Primary Care Provide r Niko Salamanca MD Unavailable [phone] Summer Wills MD Unavailable [phone] Encounter Details Date Type Department Care Team (Late st Contact Info) Description 08/22/2025 Orders Only GENERIC EXTERNAL DATA DEPARTMENT Provider, [...] Comments PROTHROMBIN TIME WHOLE BLD POC Routine 08/22/2025 11:26 AM EDT ~PT, ~INR - ANTI COAG CLINIC Routine 08/22/2025 11:26 AM EDT documented in this encounter Results * (ABNORMAL) PROTHROMBIN TIME WHOLE BLD POC (08/22/2025 11:26 AM EDT) Protime 23.8(H) 11.1 - 13.5 sec [facility] 08/22/2025 11:2 6 AM EDT 08/22/2025 11:28 AM EDT us Generic External Data Provider LAB BLOOD ORDERAB LES Final Result Performing Organization Address City/State/[facility] Co de Phone Number [facility] [address] [place] [phone] * (ABNORMAL) ~PT, ~INR - ANTI COAG CLINIC (08/22/2025 11:26 AM EDT) Prothrombin Time INR 2.0(H) 0.9 - 1.1 [facility] Comment:METER #: [id number] TERNATIONAL NORMALIZED RATIO (INR) REFERENCE RANGES Reference RangeFor patients not on anticoagulant therapy: 0.9 - 1.1INR ranges for oral anticoagulanttherapy:For prevention and treatment of venous thrombosis and pulmonary embolism: 2.0 - 3.0For acute myocardial infarction with aspirin therapy: 2.0 - 3.0For acute myocardial infarction without aspirin therapy: 3.0 - 4.0For patients with mechanical prosthetic heart valves: 2.5 - 3.5 08/22/2025 11:2 6 AM EDT 08/22/2025 11:28 AM EDT us Generic External Data Provider LAB BLOOD ORDERAB LES Final Result [facility] [address] [place] [address] [phone] documented in this encounter Visit Diagnoses Not on filedocumented in this encounter Additional Health Concerns Assessment Noted Time PHQ-9 Depression Total Score: 0 10/17/20 24 1:50 PM EST documented as of this encounter Care Teams Kiln Operator Relationship Specialty Start Date End Date Pedro Pulliam MD [address] [place] [address] PCP - General Internal Medicine 09/10/14 Niko Salamanca MD [address] [place] [address] Nephrology 01/16/25 Summer Wills MD [address] [place] [address] Hematology and Oncology 06/27/25 documented as of this encounter
--- OUTSIDE RECORDS SUMMARY | 2025-08-22 14:09 | XMS_ITS | Encounter Summary ---
Author Organization [employer] Address [address] [place] [address] 7t [place] [address] Care Team Providers Care Welding Machine Operator Gas Metal Arc Name Role Phone Pedro Pulliam MD Primary Care Provide r Niko Salamanca MD Unavailable [phone] Summer Wills MD Unavailable [phone] Encounter Details Date Type Department Care Team (Late st Contact Info) Description 05/31/2023 Orders Only [facility] [address] [place] [address] Shanita Pfeiffer LPN Social History Tobacco Use [...] on filedocumented in this encounter Care Teams Welding Machine Operator Gas Metal Arc Relationship Specialty Start Date End Date Pedro Pulliam MD [address] [place] [address] PCP - General Internal Medicine 09/10/14 Niko Salamanca MD [address] [place] [address] Nephrology 01/16/25 Summer Wills MD [address] [place] [address] Hematology and Oncology 06/27/25 documented as of this encounter
--- OUTSIDE RECORDS SUMMARY | 2025-08-22 14:10 | XMS_ITS | Clinical Summary ---
Author Organization [facility] Address [address] [address] Phone Care Team Providers Care Shale Planer Operator Helper Name Role Phone Unavailable Primary Care [...] file Medical Devices Not on file Insurance [facility] REPLACEMENT [employer] [id number] [place] [address] MEDICARE REPLACEMENT [facility] MEDICARE REPLACEMENT [facility] MEDICARE [place]ACEMENT [place] [address] MEDICARE REPLACEMENT [facility] MEDICARE REPLACEMENT [facility] MEDICARE REPLACEMENT [facility] MEDICARE REPLACEMENT Additional Source Comments The information contained in this document represents components of the legal health record. It is not the complete legal health record.[facility]
--- OUTSIDE RECORDS SUMMARY | 2025-08-22 14:10 | XMS_ITS | Encounter Summary ---
Author Organization [employer] Address [address] [place] [address] 7t [place] [address] Care Team Providers Care Cardiac Cath Rn Name Role Phone Pedro Pulliam MD Primary Care Provide r Niko Salamanca MD Unavailable [phone] Summer Wills MD Unavailable [phone] Encounter Details Date Type Department Care Team (Late st Contact Info) Description 02/25/2023 Orders Only [facility] [address] [place] [address] Shanita Pfeiffer LPN Social History Tobacco Use [...] on filedocumented in this encounter Care Teams Cardiac Cath Rn Relationship Specialty Start Date End Date Pedro Pulliam MD [address] [place] [address] PCP - General Internal Medicine 09/10/14 Niko Salamanca MD [address] [place] [address] Nephrology 01/16/25 Summer Wills MD [address] [place] [address] Hematology and Oncology 06/27/25 documented as of this encounter
--- OUTSIDE RECORDS SUMMARY | 2025-08-22 14:10 | XMS_ITS | Encounter Summary ---
Author Organization [employer] Address [address] [facility] 7t [place] [address] Care Team Providers Care Consultant Technology Name Role Phone Pedro Pulliam MD Primary Care Provide r Niko Salamanca MD Unavailable [phone] Summer Wills MD Unavailable [phone] Encounter Details Date Type Department Care Team (Late st Contact Info) Description 02/01/2023 Orders Only [facility] [address] [place] [address] Shira Castano LPN Social History Tobacco Use [...] on filedocumented in this encounter Care Teams Consultant Technology Relationship Specialty Start Date End Date Pedro Pulliam MD [address] [place] [address] PCP - General Internal Medicine 09/10/14 Niko Salamanca MD [address] [place] [address] Nephrology 01/16/25 Summer Wills MD [address] [place] [address] Hematology and Oncology 06/27/25 documented as of this encounter
--- OUTSIDE RECORDS SUMMARY | 2025-08-22 14:10 | XMS_ITS | Clinical Summary ---
Author Organization [employer] Address [address] [facility] 7t [place] [address] Care Team Providers Care Director Of Video Analytics Name Role Phone Pedro Pulliam MD Primary Care Provide r Niko Salamanca MD Unavailable [phone] Summer Wills MD Unavailable [phone] Allergies No known active allergies Medications [...] undergoing PT with good results. [facility] 09/23/2023 Assessment & Plan (07/17/2025 2:10 PM [...] Zoster: 02/26/2015 Stage 3b chronic kidney disease ([facility]/HCC) 201809/15/2023 Assessment & Plan (07/17/2025 1:53 [...] showed diverticulosis only [place] [facility] [place] Mixed hyperlipidemia [...] the past by his vascular surgeon at [facility] (Dr Lind) whose recommendation was conservative treatment, he saw NO role for any type of surgical intervention. He recommended to repeat the scan in 1 year and continue to take Asa 81 mg po daily. Pt was last seen by his transfer station attendant at [facility] 09/14/2023 recommended repeat US and ECHO and 6 month follow up He is on Aspirin started by their office Last Carotid US on record from 02/11/2023 Hypertension 04/21/2012 09/15/2023 Assessment & Plan (07/17/2025 1:54 PM EDT): Pt here for a f/u BP stable He is on a regimen of: Norvasc 5 mg daily, and lasix 20 mg daily prescribed by Operating Engineer. Off Lisinopril 40 mg po daily (stopped by Radiology Administrator 04/01) I had lowered his Lasix due [...] and lasix 20 mg daily prescribed by Operating Engineer. Pt is off Lisinopril 40 mg po daily (stopped by Radiology Administrator 04/01) I had recently lowered his Lasix [...] and lasix 20 mg daily prescribed by Operating Engineer. I had recently lowered his Lasix [...] and lasix 20 mg daily prescribed by Operating Engineer. I had recently lowered his Lasix [...] Am and 20 mg PM prescribed by Operating Engineer. I had recently lowered his Lasix [...] Am and 20 mg PM prescribed by Operating Engineer. Pt developed some bilateral ankle edema [...] Furosemide 20 mg po BID prescribed by Operating Engineer. Pt developed some bilateral ankle edema [...] Furosemide 20 mg po BID prescribed by Operating Engineer. Pt developed some bilateral ankle edema [...] clinical impression. Plan: Breast center referral at [facility] Assessment & Plan (02/01/2024 1:36 PM EDT): [...] Encounters Date Type Department Care Team Description 08/22/2025 Orders Only GENERIC EXTERNAL DATA DEPARTMENT Provider, Generic External Data 08/19/2025 Refill [facility] [address] [place] [address] Pedro Pulliam MD Vitamin D deficiency 08/15/2025 Orders Only GENERIC EXTERNAL DATA DEPARTMENT Provider, Generic External Data 08/10/2025 Orders Only GENERIC EXTERNAL DATA DEPARTMENT Provider, Generic External Data 08/08/2025 Telephone [facility] [address] [place] [address] Pedro Pulliam MD Critical INR 08/08/2025 Orders Only GENERIC EXTERNAL DATA DEPARTMENT Provider, Generic External Data 07/25/2025 Orders Only GENERIC EXTERNAL DATA DEPARTMENT Provider, Generic External Data 07/17/2025 2:00 PM EDT Office Visit [facility] [address] [place] [address] Pedro Pulliam MD Primary hypertension (Primary Dx); Stage 3b chronic kidney disease (CMS/HCC); Longstanding persistent atrial fibrillation (CMS/HCC); Primary open angle glaucoma (POAG) of both eyes, indeterminate stage; Gynecomastia; Bilateral leg edema; KARINA (obstructive sleep apnea); Sciatica of left side; Benign prostatic hyperplasia with urinary frequency; Preventative health care 07/17/2025 Travel 07/16/2025 Telephone [facility] [address] [place] [address] Pedro Pulliam MD chart prep 07/11/2025 Orders Only GENERIC EXTERNAL DATA DEPARTMENT Provider, Generic External Data 07/04/2025 Orders Only GENERIC EXTERNAL DATA DEPARTMENT Provider, Generic External Data 06/27/2025 Orders Only GENERIC EXTERNAL DATA DEPARTMENT Provider, Generic External Data 06/26/2025 Results Follow-Up [facility] [address] [place] [address] Avis Keonig MD CBC, Basic Metabolic Panel, PSA, Total With Reflex to PSA, Free 06/26/2025 Orders Only GENERIC EXTERNAL DATA DEPARTMENT Provider, Generic External Data 05/30/2025 Orders Only GENERIC EXTERNAL DATA DEPARTMENT Provider, Generic External Data 05/23/2025 Telephone [facility] [address] [place] [address] Pedro Pulliam MD Medication Question from Last 3 Months Immunizations Immunization Administration [...] [facility] Routine 08/22/2025 11:26 AM EDT PROTHROMBIN TIME WHOLE BLD POC Routine 08/15/2025 1:08 PM EDT ~PT, ~INR - ANTI COAG CLINIC Routine 08/15/2025 1:08 PM EDT PROTHROMBIN TIME WHOLE BLD POC Routine 08/10/2025 [...] WHOLE BLD POC (08/22/2025 11:26 AM EDT) Only the most recent of9 resultswithin the time period is included. Protime 23.8(H) 11.1 - 13.5 sec [facility] 08/22/2025 11:2 6 AM EDT 08/22/2025 11:28 AM EDT Generic External Data Provider LAB BLOOD ORDERAB LES Final Result Performing Organization Address City/[facility] Co de Phone Number [facility] [address] [place] [phone] * (ABNORMAL) ~PT, ~INR - ANTI COAG CLINIC (08/22/2025 11:26 AM EDT) Only the most recent of9 resultswithin the time period is included. [facility] Prothrombin Time INR 2.0(H) 0.9 - 1.1 [facility] Comment:METER #: [id number] TERNATIONAL NORMALIZED RATIO (INR) REFERENCE RANGES Reference [...] 6 AM EDT 08/22/2025 11:28 AM EDT [place] External Data Provider LAB BLOOD ORDERAB LES Final Result Performing Organization Address [facility] Co de Phone Number [facility] [address] [place] [phone] * (ABNORMAL) PSA, Free and Total (06/26/2025 12:16 PM EDT) Pathologist [facility] PSA, Total 5.6(A) < OR = 4.0 ng/mL [facility] PSA % Free 38 >25 % (calc) [facility] Comment: PSA(ng/mL) Free PSA(%) Estimated(x) Probability of Cancer(as%)0-2.5 (*) Approx. 12.6-4.0(1) 0-27(2) 24(3)4.1-10(4) 0-10 56 11-15 28 16-20 20 21-25 16 >or =26 8>10(+) N/A >50References:(1)Tc et al.:Urology 60: 469-474 (2001) (2)Tc et al.:J.Urol 168: 922-925 (2001) Free PSA(%) Sensitivity(%) Specificity(%) < or = 25 85 19 < or = 30 93 9 (3)Catalona et al.:MARLEEN 277: 4490-2333 (1996) (4)Catalona et al.:MARLEEN 279: 5111-9097 (1997)(x)These estimates vary with age, ethnicity, family [...] presence or absence ofdisease.THIS TEST WAS PERFORMED AT:[facility] [place] [phone] SEGURA MD PSA, Free 2.1 ng/mL [facility] 06/26/2025 12:1 6 PM EDT 06/26/2025 12:16 PM EDT us Generic External Data Provider LAB BLOOD ORDERAB LES Final Result Performing Organization Address [facility] Co de Phone Number [facility] [address] [place] [phone] * (ABNORMAL) PSA, Total With Reflex to PSA, Free (06/26/2025 8:09 AM EDT) Pathologist [facility] PSA,Total (Free>4and<10) 6.40(H) 0.00 - 4.00 ng/mL [facility] Comment:PSA methodology: Angel Gillespie i ChemiluminescentMicroparticle Immunoassay (CMIA) 06/26/2025 8:09 AM EDT 06/26/2025 10:58 AM EDT us Generic External Data Provider LAB BLOOD ORDERAB LES Final Result Performing Organization Address [facility] Co de Phone Number [facility] [address] [place] [phone] * (ABNORMAL) CBC (06/26/2025 8:09 AM EDT) White Blood Count 2.9(L) 4.8 - 10.8 X10*3/uL [facility] Red Blood Count 2.55(L) 4.60 - 5.80 X10*6/uL [facility] Hemoglobin 7.7(L) 14.0 - 18.0 g/dl [facility] Hematocrit 24.6(L) 42.0 - 52.0 % [facility] Mean Corpuscular Volume 96.5 80.0 - 98.0 fL [facility] Mean Corpuscular Hemoglobin 30.2 27.0 - 33.0 pg [facility] Mean Corpuscular HGB Conc 31.3 31.0 - 36.0 g/dl [facility] Red Cell Distribution Width 14.6 11.0 - 16.0 % [facility] Platelet Count 109(L) 160 - 400 X10*3/uL [facility] Mean Platelet Volume 10.8 9.4 - 12.4 fL [facility] NRBC Pct Auto 0.0 0.0 - 0.2 /100WBC [facility] NRBC Abs Auto 0.000 0.0 - 0.012 X10*3/uL [facility] 06/26/2025 8:09 AM EDT 06/26/2025 10:58 AM EDT us Generic External Data Provider LAB BLOOD ORDERAB LES Final Result Performing Organization Address [facility]/ZIP Co de Phone Number [facility] [address] [place] [phone] * (ABNORMAL) Basic Metabolic Panel (06/26/2025 8:09 AM EDT) Sodium 141 135 - 145 mmol/L [facility] Potassium 3.6 3.3 - 5.1 mmol/L [facility] Chloride 111(H) 96 - 108 mmol/L [facility] Carbon Dioxide 22 22 - 29 mmol/L [facility] Anion Gap 12 12 - 20 [facility] Urea Nitrogen (BUN) 16 9 - 16 mg/dL [facility] Creatinine, Serum 1.90(H) 0.5 - 1.4 mg/dL [facility] Estimated Glomerular Filt Rate 34 [facility] Comment:Chronic Kidney Disea se: Estimated GFR < 60 mL/min/1.70e3Jnjcix Kidney Disease: Estimated GFR < 15 mL/min/1.73m2 Glucose 85 60 - 115 mg/dL [facility] Calcium 8.8 8.4 - 10.2 mg/dL [facility] 06/26/2025 8:09 AM EDT 06/26/2025 10:58 AM EDT us Generic External Data Provider LAB BLOOD ORDERAB LES Final Result Performing Organization Address City/[facility]/ZIP Co de Phone Number [facility] [address] [place] [phone] * (ABNORMAL) Lipid Panel, Standard (01/16/2025 9:13 AM EDT) Triglycerides 40 <150 mg/dL [facility] Comment:Desirable Triglyceri de: less than 150 mg/dLBorderline High Triglyceride 150-199 mg/dLHigh Triglyceride: 200-499 mg/dLVery High Triglyceride: greater than or equal to 5OO mg/dL Cholesterol 93 <200 mg/dL [facility] Comment:Desirable Cholestero l: less than 200 mg/dLBorderline High Cholesterol: 200-239 mg/dLHigh Cholesterol: greater than 239 mg/dL LDL Cholesterol Calculated 58 <100 mg/dL [facility] Comment:Desirable LDL: less than 100 mg/dLNear Optimal/Above Optimal LDL: 110- 129 mg/dLBorderline High LDL: 130-159 mg/dLHigh LDL: 160-189 mg/dLVery High LDL: greater than or equal to 190 mg/dL HDL Cholesterol 27(L) >40 mg/dL [facility] Comment:Desirable HDL: great er than 40 mg/dL Note: This HDL assay may give artificially low results in patients with liver disease. Blood Venous blood specimen / Unknown 01/16/2025 9:13 AM EDT 01/16/2025 11:29 AM EDT us Pedro Julian MD LAB BLOOD ORDERABLES Final Result [facility] [address] [place] [phone] * BI Mammogram Diagnostic Tomosynthesis Bilateral (04/11/2024 3:15 PM EDT) Anatomical Region Laterality Modality Breast Bilateral Mammography 04/11/2024 3:15 PM EDT Narrative 04/11/2024 4:59 PM EDT [facility] [address] [place] [address] Dr. Mckeon, CHERYLE [address] Mammography Report Signed Patient: Jamie Carpio MR#: [id number] : 1945 Acct:[id number] Age/Sex: 79 / M ADM Date: 04/11/24 Loc: HO.MAMMO Attending Dr: Pedro Webber MD Ordering Physician: Pedro Webber MD Resu lts: 2Benign Findings Date of Service: 04/11/24 Follow Up: 1 Year From [facility] Mammogram Procedure(s): MM tomosynthesis diagnostic BI Accession Number(s): [id number] cc: Pedro Webber MD EXAMINATION: MM DIAGNOSTIC [...] in OV> 04/11/24 1654 DD/ 1515 TD/TT: Precise Winder: Procedure Note Donotuseinterpreter, Image - 04/11/2024 [facility] [address] [place] [address] Mammography Report Signed Patient: Rik Carpio#: [id number] : 6Acct:[id number] Age/Sex: 79 / MADM Date: 04/11/24 Loc: HO.MAMMO Attending Dr: Pedro Webber MD Ordering Physician: Pedro Webber MDResu lts: 2Benign Findings Date of Service: 04/11/24Follow Up: 1 Year From [facility] Mammogram Procedure(s): MM tomosynthesis diagnostic BI Accession Number(s): [id number] cc: Pedro Webber MD EXAMINATION: MM DIAGNOSTIC [...] in OV> 04/11/24 1654 DD/ 1515 TD/TT: Precise Winder: Pedro Julian MD IMG BI PROCEDURES Fin al Result * HEPATITIS C AB W/REFL TO HCV RNA, QN, PCR (12/24/2021 8:24 AM EST) HEPATITIS C ANTIBODY NON-REACT SIL NON-REACT SIL [facility] INDEX 0.01 <1.00 [facility] Comment: HCV antibody was non-reactive. There is no laboratory evidence of HCV infection. In most cases, no further action is required. However, if recent HCV exposure is suspected, a test for HCV RNA (test code 42428) is suggested. For additional information please refer to http://education.silkfred/faq/RZJ62a8 (This link is being provided for informational/ educational purposes only.) 12/24/2021 8:24 AM EST us Pedro Julian MD HISTORICAL/NON ORDERA BLE LABS Final Result [facility] Anywhere [address] from Last 3 Months or Most Recently Relevant to Health Maintenance Insurance [employer] [id number] Care Teams Director Of Video Analytics Relationship Specialty Start Date End Date Pedro Pulliam MD [address] [place] [phone] PCP - General Internal Medicine 09/10/14 Niko Salamanca MD [address] [place] [address] [address] [place] [address] Nephrology 01/16/25 Summer Wills MD [address] [place] [address] Hematology and Oncology 06/27/25
--- OUTSIDE RECORDS SUMMARY | 2025-08-22 14:10 | XMS_ITS | Encounter Summary ---
Author Organization [employer] Address [address] [facility] 7t [place] [address] Care Team Providers Care Lens Inserter Name Role Phone Pedro Pulliam MD Primary Care Provide r Niko Salamanca MD Unavailable [phone] Summer Wills MD Unavailable [phone] Reason for Visit * Reason Onset Date Comments OV 03/1602/17/2024 Encounter Details Date Type Department Care Team (Late st Contact Info) Description 02/17/2024 Telephone [facility] [address] [place], [place] [phone] Pedro Pulliam MD [address] [place], [place] [phone] OV 03/16 Social History Tobacco Use Types [...] any questions you can contact pt at [phone]. documented in this encounter Plan of Treatment Not on file documented as of this encounter Visit Diagnoses Not on filedocumented in this encounter Additional Health Concerns Assessment Noted Time PHQ-9 Depression Total Score: 1 09/23/20 23 1:21 PM EST documented as of this encounter Care Teams Lens Inserter Relationship Specialty Start Date End Date Pedro Pulliam MD [address] [place] [address] PCP - General Internal Medicine 09/10/14 Niko Salamanca MD [address] [facility] [address] [address] [place] [address] Nephrology 01/16/25 Summer Wills MD [address] [place] [address] Hematology and Oncology 06/27/25 documented as of this encounter
--- OUTSIDE RECORDS SUMMARY | 2025-08-22 14:10 | XMS_ITS | Encounter Summary ---
Author Organization [facility] Address [address] [facility] [address] [place] [phone] Phone Care Team Providers Care Php Software Engineer Name Role Phone Unavailable Primary Care Provider Unavailabl e Encounter Details Date Type Department Care Team (Late st Contact Info) Description 10/28/2018 Ancillary Orders [facility] [address] [place] [address] [place] [address] Felton Triana MD [address] [place] [phone] [email or web address] [email or web address] Social History Tobacco Use Types Packs/Day [...] the complete legal health record.[facility]
--- OUTSIDE RECORDS SUMMARY | 2025-08-22 14:10 | XMS_ITS | Clinical Summary ---
Author Organization [facility] Address [address] [place] [address] Care Team Providers Care Engineering Drawings Checker Name Role Phone Unavailable Primary Care Provider [...] Documents on File Type Date Recorded Patient Hospice Clinical Manager Expl anation Health Care Decision (hx) 01/10/2020 AD PHILLIP DIRECTIVE
--- OUTSIDE RECORDS SUMMARY | 2025-08-22 14:10 | XMS_ITS | Encounter Summary ---
Author Organization [facility] Address [address] [place] [address] Phone Care Team Providers Care Tinsel Machine Operator Name Role Phone Unavailable Primary Care Provider Unavailabl e Encounter Details Date Type Department Care Team (Late st Contact Info) Description 10/28/2018 Ancillary Orders [facility] [address] [facility] 3rd Floor, [address] [place], [place] [phone] Felton Triana MD [address] [place] [address] [email or web address] Social History Tobacco [...]
--- OUTSIDE RECORDS SUMMARY | 2025-08-22 14:10 | XMS_ITS | Patient Health Record ---
Author Organization [facility] Address [address] [place] [address] Care Team Providers Care Woods Rider Name Role Phone Gwendolyn Julian MD, Pedro Primary Care Provide r Unavailable Favian Hardin Jr Unavailable Reason For Referral No Information Plan Of Treatment No Information Insurance Providers Payer Name Payer Address Payer Phone Subscriber Number Group Number Insured Name Patient Relationship to Insured Coverage Start Date Coverage End Date [facility]ICARE OF [facility] [address] [facility] [place] [id number] LILY RINCON Self - patient is the insured
--- OUTSIDE RECORDS SUMMARY | 2025-08-22 14:10 | XMS_ITS | Encounter Summary ---
Author Organization [employer] Address [address] [facility] 7t [place] [address] Care Team Providers Care Cigarette Book Maker Name Role Phone Pedro Pulliam MD Primary Care Provide r Niko Salamanca MD Unavailable [phone] Summer Wills MD Unavailable [phone] Reason for Visit * Reason Onset Date Comments Med Refill 2023 Encounter Details Date Type Department Care Team (Late st Contact Info) Description 2023 Refill [facility] [address] [place], [place] [phone] Pedro Pulliam MD [address] [place], [place] [phone] Atrial fibrillation, unspecified type (CMS/HCC) (Primary Dx) [...] Primary documented in this encounter Care Teams Cigarette Book Maker Relationship Specialty Start Date End Date Pedro Pulliam MD [address] [place] [address] PCP - General Internal Medicine 09/10/14 Niko Salamanca MD [address] [place] [address] Nephrology 01/16/25 Summer Wills MD [address] [place] [address] Hematology and Oncology 06/27/25 documented as of this encounter
--- OUTSIDE RECORDS SUMMARY | 2025-08-22 14:10 | XMS_ITS | Encounter Summary ---
Author Organization [employer] Address [address] [facility] 7t [place] [address] Care Team Providers Care Tugboat Mate Name Role Phone Pedro Pulliam MD Primary Care Provide r Niko Salamanca MD Unavailable [phone] Summer Wills MD Unavailable [phone] Reason for Visit * Reason Comments Med Refill Encounter Details Date Type Department Care Team (Late st Contact Info) Description 06/02/2024 Refill [facility] [address] [place], [place] [phone] Pedro Pulliam MD [address] [place], [place] [phone] Primary hypertension; Stage 3 chronic kidney disease, [...] whether stage 3a or 3b CKD (CMS/HCC) ([facility]) Nonrheumatic tricuspid valve regurgitation documented in this encounter Additional Health Concerns Assessment Noted Time PHQ-9 Depression Total Score: 1 09/23/20 23 1:21 PM EST documented as of this encounter Care Teams Tugboat Mate Relationship Specialty Start Date End Date Pedro Pulliam MD [address] [place] [address] PCP - General Internal Medicine 09/10/14 Niko Salamanca MD [address] [place] [address] Nephrology 01/16/25 Summer Wills MD [address] [place] [address] Hematology and Oncology 06/27/25 documented as of this encounter
== END 2025-08-22 11:41 | disposition home or self-care (01) ==
LOC: HO.ACS 11:22
PROVIDERS: PCP Internal Medicine; Visit Provider Internal Medicine Medical Oncology
DX: Z79.01 Long term (current) use of anticoagulants (principal)

== ENCOUNTER → 2025-08-22 11:22 | Outpatient (BNVA) | payer OTHER, SELFPAY | PROVIDERS: PCP Internal Medicine; Visit Provider Internal Medicine Medical Oncology | DX: I48.0 Paroxysmal atrial fibrillation (principal); Z79.01 Long term (current) use of anticoagulants; Z51.81 Encounter for therapeutic drug level monitoring | CPT/HCPCS: 85610; 99211 ==

== ENCOUNTER 2025-08-31 09:20 | Outpatient (REF) | payer OTHER, SELFPAY ==
--- OUTSIDE RECORDS SUMMARY | 2025-08-31 10:11 | XMS_ITS | Encounter Summary ---
Author Organization [employer] Address [address] [place] [address] 7t [place] [address] Care Team Providers Care Development And Housing Director Name Role Phone Pedro Pulliam MD Primary Care Provide r Niko Salamanca MD Unavailable [phone] Summer Wills MD Unavailable [phone] Encounter Details Date Type Department Care Team (Late st Contact Info) Description 05/31/2023 Orders Only [facility] [address] [place] [address] Shanita Pfeiffer LPN Social History Tobacco Use [...] on filedocumented in this encounter Care Teams Development And Housing Director Relationship Specialty Start Date End Date Pedro Pulliam MD [address] [place] [address] PCP - General Internal Medicine 09/10/14 Niko Salamanca MD [address] [place] [address] Nephrology 01/16/25 Summer Wills MD [address] [place] [address] Hematology and Oncology 06/27/25 documented as of this encounter
--- OUTSIDE RECORDS SUMMARY | 2025-08-31 10:11 | XMS_ITS | Encounter Summary ---
Author Organization [employer] Address [address] [facility] 7t [place] [address] Care Team Providers Care Clinical Lab Technologist Name Role Phone Pedro Pulliam MD Primary Care Provide r Niko Salamanca MD Unavailable [phone] Summer Wills MD Unavailable [phone] Reason for Visit * Reason Comments Med Refill Encounter Details Date Type Department Care Team (Late st Contact Info) Description 08/19/2025 Refill [facility] [address] [place], [place] [phone] Pedro Pulliam MD [address] [place], [place] [phone] Vitamin D deficiency Social History Tobacco Use [...] documented as of this encounter Care Teams Clinical Lab Technologist Relationship Specialty Start Date End Date Pedro Pulliam MD [address] [place] [address] PCP - General Internal Medicine 09/10/14 Niko Salamanca MD [address] [place] [address] Nephrology 01/16/25 Summer Wills MD [address] [place] [address] Hematology and Oncology 06/27/25 documented as of this encounter
--- OUTSIDE RECORDS SUMMARY | 2025-08-31 10:11 | XMS_ITS | Encounter Summary ---
Author Organization [employer] Address [address] [facility] 7t [place] [address] Care Team Providers Care Secretary Of Police Name Role Phone Pedro Pulliam MD Primary Care Provide r Niko Salamanca MD Unavailable [phone] Summer Wills MD Unavailable [phone] Encounter Details Date Type Department Care Team (Late st Contact Info) Description 01/06/2023 Orders Only [facility] MED & PEDS [address] [place] [address] Shira Castano LPN Social History Tobacco Use [...] on filedocumented in this encounter Care Teams Secretary Of Police Relationship Specialty Start Date End Date Pedro Pulliam MD [address] [place] [address] PCP - General Internal Medicine 09/10/14 Niko Salamanca MD [address] [place] [address] Nephrology 01/16/25 Summer Wills MD [address] [place] [address] Hematology and Oncology 06/27/25 documented as of this encounter
--- OUTSIDE RECORDS SUMMARY | 2025-08-31 10:12 | XMS_ITS | Encounter Summary ---
Author Organization [employer] Address [address] [facility] 7t [place] [address] Care Team Providers Care Lapping Machine Set Up Operator Name Role Phone Pedro Pulliam MD Primary Care Provide r Niko Salamanca MD Unavailable [phone] Summer Wills MD Unavailable [phone] Reason for Visit * Reason Onset Date Comments Med Refill 2023 Encounter Details Date Type Department Care Team (Late st Contact Info) Description 2023 Refill [facility] MEDICINE [address] [place], [place] [phone] Pedro Pulliam MD [address] [place], [place] [phone] Atrial fibrillation, unspecified type (CMS/HCC) (Primary Dx) [...] Primary documented in this encounter Care Teams Lapping Machine Set Up Operator Relationship Specialty Start Date End Date Pedro Pulliam MD [address] [place] [address] PCP - General Internal Medicine 09/10/14 Niko Salamanca MD [address] [place] [address] Nephrology 01/16/25 Summer Wills MD [address] [place] [address] Hematology and Oncology 06/27/25 documented as of this encounter
--- OUTSIDE RECORDS SUMMARY | 2025-08-31 10:12 | XMS_ITS | Clinical Summary ---
Author Organization [employer] Address [address] [facility] 7t [place] [address] Care Team Providers Care Business Process Associate Name Role Phone Pedro Pulliam MD Primary Care Provide r Niko Salamanca MD Unavailable [phone] Summer Wills MD Unavailable [phone] Allergies No known active allergies Medications [...] pt currently undergoing PT with good results. [facility] 09/23/2023 Assessment & Plan (07/17/2025 2:10 PM [...] Stage 3b chronic kidney disease ([facility]/HCC) 201809/15/2023 Assessment & Plan (07/17/2025 1:53 PM [...] the past by his vascular surgeon at [facility] (Dr Lind) whose recommendation was conservative treatment, he saw NO role for any type of surgical intervention. He recommended to repeat the scan in 1 year and continue to take Asa 81 mg po daily. Pt was last seen by his watch crystal molder at [facility] 09/14/2023 recommended repeat US and ECHO and 6 month follow up He is on Aspirin started by their office Last Carotid US on record from 02/11/2023 Hypertension 04/21/2012 09/15/2023 Assessment & Plan (07/17/2025 1:54 PM EDT): Pt here for a f/u BP stable He is on a regimen of: Norvasc 5 mg daily, and lasix 20 mg daily prescribed by Senior Director Of [employer]. Off Lisinopril 40 mg po daily (stopped by Computer Hardware Engineer 04/01) I had lowered his Lasix due [...] and lasix 20 mg daily prescribed by Senior Director Of [employer]. Pt is off Lisinopril 40 mg po daily (stopped by Computer Hardware Engineer 04/01) I had recently lowered his Lasix [...] and lasix 20 mg daily prescribed by Senior Director Of [employer]. I had recently lowered his Lasix due [...] and lasix 20 mg daily prescribed by Senior Director Of [employer]. I had recently lowered his Lasix due [...] Am and 20 mg PM prescribed by Senior Director Of [employer]. I had recently lowered his Lasix due [...] Am and 20 mg PM prescribed by Senior Director Of [employer]. Pt developed some bilateral ankle edema due [...] Furosemide 20 mg po BID prescribed by Senior Director [employer]. Pt developed some bilateral ankle edema due [...] Furosemide 20 mg po BID prescribed by Senior Director [employer]. Pt developed some bilateral ankle edema due [...] clinical impression. Plan: Breast center referral at [facility] Assessment & Plan (02/01/2024 [...] Encounters Date Type Department Care Team Description 08/31/2025 Telephone [facility] [address] [place] [address] Pedro Pulliam MD Medication Question 08/22/2025 Orders Only GENERIC EXTERNAL DATA DEPARTMENT Provider, Generic External Data 08/19/2025 Refill [facility] [address] [place] [address] Pedro Pulliam MD Vitamin D deficiency 08/15/2025 Orders Only GENERIC EXTERNAL DATA DEPARTMENT Provider, Generic External Data 08/10/2025 Orders Only GENERIC EXTERNAL DATA DEPARTMENT Provider, Generic External Data 08/08/2025 Telephone [facility]IATR[facility] [address] [place] [address] Pedro Pulliam MD Critical INR 08/08/2025 Orders Only GENERIC EXTERNAL DATA DEPARTMENT Provider, Generic External Data 07/25/2025 Orders Only GENERIC EXTERNAL DATA DEPARTMENT Provider, Generic External Data 07/17/2025 2:00 PM EDT Office Visit [facility] [address] [place] [address] Pedro Pulliam MD Primary hypertension (Primary Dx); Stage 3b chronic kidney disease (CMS/HCC); Longstanding persistent atrial fibrillation (CMS/HCC); Primary open angle glaucoma (POAG) of both eyes, indeterminate stage; Gynecomastia; Bilateral leg edema; KARINA (obstructive sleep apnea); Sciatica of left side; Benign prostatic hyperplasia with urinary frequency; Preventative health care 07/17/2025 Travel 07/16/2025 Telephone [facility] [address] [place] [address] Pedro Pulliam MD chart prep 07/11/2025 Orders Only GENERIC EXTERNAL DATA DEPARTMENT Provider, Generic External Data 07/04/2025 Orders Only GENERIC EXTERNAL DATA DEPARTMENT Provider, Generic External Data 06/27/2025 Orders Only GENERIC EXTERNAL DATA DEPARTMENT Provider, Generic External Data 06/26/2025 Results Follow-Up [facility] [address] [place] [address] Avis Koenig MD CBC, Basic Metabolic Panel, [...] EDT CBC Routine 06/26/2025 8:09 AM EDT LIPID PANEL, STANDARD Routine 01/16/2025 9:13 [...] 11:26 AM EDT) Only the most recent of8 resultswithin the time period is included. Protime 23.8(H) 11.1 - 13.5 sec [facility] 08/22/2025 11:2 6 AM EDT 08/22/2025 11:28 AM EDT Generic External Data Provider LAB BLOOD ORDERAB LES Final Result Performing Organization Address [facility] Co de Phone Number [facility] [address] [place] [phone] * (ABNORMAL) ~PT, ~INR - ANTI COAG CLINIC (08/22/2025 11:26 AM EDT) Only the most recent of8 resultswithin the time period is included. Prothrombin Time INR 2.0(H) 0.9 - 1.1 [facility] Comment:METER #: [id number] TERNATIONAL NORMALIZED RATIO (INR) REFERENCE RANGES Reference [...] LES Final Result Performing Organization Address [facility] Co de Phone Number [facility] [address] [place] [phone] * (ABNORMAL) PSA, Free and Total (06/26/2025 12:16 PM EDT) PSA, Total 5.6(A) < OR = 4.0 ng/mL [facility] PSA % Free 38 >25 % (calc) [facility] Comment: PSA(ng/mL) Free PSA(%) Estimated(x) Probability of Cancer(as%)0-2.5 (*) Approx. 12.6-4.0(1) 0-27(2) 24(3)4.1-10(4) 0-10 56 11-15 28 16-20 20 21-25 16 >or =26 8>10(+) N/A >50References:(1)Tc et al.:Urology 60: 469-474 (2001) (2)Tc et al.:J.Urol 168: 922-925 (2001) Free PSA(%) Sensitivity(%) Specificity(%) < or = 25 85 19 < or = 30 93 9 (3)Tristenona et al.:MARLEEN 277: 3552-4614 (1996) (4)Catalona et al.:MARLEEN 279: 8358-4899 (1997)(x)These estimates vary with age, ethnicity, family history and VANENSA results.(*)The diagnostic usefulness of % Free PSA [...] presence or absence ofdisease.THIS TEST WAS PERFORMED AT:[facility] [place] [phone] SEGURA MD PSA, Free 2.1 ng/mL [facility] 06/26/2025 12:1 6 PM EDT 06/26/2025 12:16 PM EDT us Generic External Data Provider LAB BLOOD ORDERAB LES Final Result [facility] [address] [place] [phone] * (ABNORMAL) PSA, Total With Reflex to PSA, Free (06/26/2025 8:09 AM EDT) PSA,Total (Free>4and<10) 6.40(H) 0.00 - 4.00 ng/mL [facility] Comment:PSA methodology: Angel Gillespie i ChemiluminescentMicroparticle Immunoassay (CMIA) 06/26/2025 8:09 AM EDT 06/26/2025 10:58 AM EDT us Generic External Data Provider LAB BLOOD ORDERAB LES Final Result [facility] [address] [place], [place] [phone] * (ABNORMAL) CBC (06/26/2025 8:09 AM EDT) Pathologist [facility] White Blood Count 2.9(L) 4.8 - 10.8 X10*3/uL [facility] Red Blood Count 2.55(L) 4.60 - 5.80 X10*6/uL [facility] Hemoglobin 7.7(L) 14.0 - 18.0 g/dl [facility] Hematocrit 24.6(L) 42.0 - 52.0 % [facility] Mean Corpuscular Volume 96.5 80.0 - 98.0 fL [facility] Mean Corpuscular Hemoglobin 30.2 27.0 - 33.0 pg [facility] Mean Corpuscular HGB Conc 31.3 31.0 - 36.0 g/dl [facility] Red Cell Distribution Width 14.6 11.0 - 16.0 % [facility] Platelet Count 109(L) 160 - 400 X10*3/uL [facility] Mean Platelet Volume 10.8 9.4 - 12.4 fL [facility] NRBC Pct Auto 0.0 0.0 - 0.2 /100WBC [facility] NRBC Abs Auto 0.000 0.0 - 0.012 X10*3/uL [facility] 06/26/2025 8:09 AM EDT 06/26/2025 10:58 AM EDT us Generic External Data Provider LAB BLOOD ORDERAB LES Final Result Performing Organization Address [facility] Co de Phone Number [facility] [address] [place] [phone] * (ABNORMAL) Basic Metabolic Panel (06/26/2025 8:09 AM EDT) Sodium 141 135 - 145 mmol/L [facility] Potassium 3.6 3.3 - 5.1 mmol/L [facility] Chloride 111(H) 96 - 108 mmol/L [facility] Carbon Dioxide 22 22 - 29 mmol/L [facility] Anion Gap 12 12 - 20 [facility] Urea Nitrogen (BUN) 16 9 - 16 mg/dL [facility] Creatinine, Serum 1.90(H) 0.5 - 1.4 mg/dL [facility] Estimated Glomerular Filt Rate 34 [facility] Comment:Chronic Kidney Disea se: Estimated GFR < 60 mL/min/1.59d3Gswgxf Kidney Disease: Estimated GFR < 15 mL/min/1.73m2 Glucose 85 60 - 115 mg/dL [facility] Calcium 8.8 8.4 - 10.2 mg/dL [facility] 06/26/2025 8:09 AM EDT 06/26/2025 10:58 AM EDT us Generic External Data Provider LAB BLOOD ORDERAB LES Final Result Performing Organization Address [facility]/ZIP Co de Phone Number [facility] [address] [place] [phone] * (ABNORMAL) Lipid Panel, Standard (01/16/2025 9:13 AM EDT) Triglycerides 40 <150 mg/dL [facility] Comment:Desirable Triglyceri de: less than 150 mg/dLBorderline High Triglyceride 150-199 mg/dLHigh Triglyceride: 200-499 mg/dLVery High Triglyceride: greater than or equal to 5OO mg/dL Cholesterol 93 <200 mg/dL [facility] Comment:Desirable Cholestero l: less than 200 mg/dLBorderline High Cholesterol: 200-239 mg/dLHigh Cholesterol: greater than 239 mg/dL LDL Cholesterol Calculated 58 <100 mg/dL [facility] Comment:Desirable LDL: less than 100 mg/dLNear Optimal/Above Optimal LDL: 110- 129 mg/dLBorderline High LDL: 130-159 mg/dLHigh LDL: 160-189 mg/dLVery High LDL: greater than or equal to 190 mg/dL HDL Cholesterol 27(L) >40 mg/dL [facility] Comment:Desirable HDL: great er than 40 mg/dL Note: This HDL assay may give artificially low results in patients with liver disease. Blood Venous blood specimen / Unknown 01/16/2025 9:13 AM EDT 01/16/2025 11:29 AM EDT Pedro Julian MD LAB BLOOD ORDERABLES Final Result [facility] [address] [place] [address] [phone] * BI Mammogram Diagnostic Tomosynthesis Bilateral (04/11/2024 3:15 PM EDT) Anatomical Region Laterality Modality Breast Bilateral Mammography 04/11/2024 3:15 PM EDT Narrative 04/11/2024 4:59 PM EDT [facility] [address] [place] [address] [place] [address] Mammography Report Signed Patient: Jamie Carpio MR#: [id number] : 1945 Acct:[id number] Age/Sex: 79 / M ADM Date: 04/11/24 Loc: TOVA.MAMMKim Attending Dr: Pedro Webber MD Ordering Physician: Pedro Webber MD Resu lts: 2Benign Findings Date of Service: 04/11/24 Follow Up: 1 Year From Orig inal Mammogram Procedure(s): MM tomosynthesis diagnostic BI Accession Number(s): [id number] cc: Pedro Webber MD EXAMINATION: MM DIAGNOSTIC [...] in OV> 04/11/24 1654 DD/ 1515 TD/TT: Nut Steamer: Procedure Note Donotuseinterpreter, Image - 04/11/2024 [facility] [address] [place], [place] [address] Mammography Report Signed Patient: Rik Carpio#: [id number] : 6Acct:[id number] Age/Sex: 79 / MADM Date: 04/11/24 Loc: HO.MAMMO Attending Dr: Pedro Webber MD Ordering Physician: Pedro Webber MDResu lts: 2Benign Findings Date of Service: 04/11/24Follow Up: 1 Year From Orig ina Mammogram Procedure(s): MM tomosynthesis diagnostic BI Accession Number(s): [id number] cc: Pedro Webber MD EXAMINATION: MM DIAGNOSTIC [...] in OV> 04/11/24 1654 DD/ 1515 TD/TT: Nut Steamer: Pedro Julian MD IMG BI PROCEDURES Fin al Result * HEPATITIS C AB W/REFL TO HCV RNA, QN, PCR (12/24/2021 8:24 AM EST) HEPATITIS C ANTIBODY NON-REACT SIL NON-REACT SIL [facility] INDEX 0.01 <1.00 [facility] Comment: HCV antibody was non-reactive. There is no laboratory evidence of HCV infection. In most cases, no further action is required. However, if recent HCV exposure is suspected, a test for HCV RNA (test code 81307) is suggested. For additional information please refer to http://education.[employer]/faq/VIA96s9 (This link is being provided for informational/ educational purposes only.) 12/24/2021 8:24 AM EST Pedro Julian MD HISTORICAL/NON ORDERA BLE LABS Final Result [facility] [address] from Last 3 Months or Most Recently Relevant to Health Maintenance Insurance [address] CHERYLE Webber [facility] N[facility] OPTIONS (HMO D-SNP) Care Teams Business Process Associate Relationship Specialty Start Date End Date Pedro Pulliam MD [address] [place] [address] PCP - General Internal Medicine 09/10/14 Niko Salamanca MD [address] [place] [address] Nephrology 01/16/25 Summer Wills MD [address] [place] [address] Hematology and Oncology 06/27/25
--- OUTSIDE RECORDS SUMMARY | 2025-08-31 10:12 | XMS_ITS | Encounter Summary ---
Author Organization [email or web address] Address [address] [place] [address] 7t [place] [address] Care Team Providers Care Automobile Service Advisor Name Role Phone Pedro Pulliam MD Primary Care Provide r Niko Salamanca MD Unavailable [phone] Summer Wills MD Unavailable [phone] Encounter Details Date Type Department Care Team (Late st Contact Info) Description 02/25/2023 Orders Only [facility] MEDICINE [address] [place] [address] Shanita Pfeiffer LPN Social History Tobacco Use [...] on filedocumented in this encounter Care Teams Automobile Service Advisor Relationship Specialty Start Date End Date Pedro Pulliam MD [address] [place] [address] PCP - General Internal Medicine 09/10/14 Niko Salamanca MD [address] [place] [address] Nephrology 01/16/25 Summer Wills MD [address] [place] [address] Hematology and Oncology 06/27/25 documented as of this encounter
--- OUTSIDE RECORDS SUMMARY | 2025-08-31 10:12 | XMS_ITS | Encounter Summary ---
Author Organization [email or web address] Address [address] [facility] 7t [place] [address] Care Team Providers Care Account Manager Trainee Name Role Phone Pedro Pulliam MD Primary Care Provide r Niko Salamanca MD Unavailable [phone] Summer Wills MD Unavailable [phone] Reason for Visit * Reason Onset Date Comments Medication Question 08/31/2025 Encounter Details Date Type Department Care Team ([facility] st Contact Info) Description 08/31/2025 Telephone [facility]INE [address] [place], [place] [phone] Pedro Pulliam MD [address] [place], [place] [phone] Medication Question Social History Tobacco Use Types Packs/Day Years [...] encounter Miscellaneous Notes * Telephone Encounter - Crissy Louis - 08/31/2025 9:37 AM EDT Patient walked in requesting refill of medication: Furosemide 40 mg- Per Patient PCP usually send him a refill of this medication and he was PCP to start prescribing. Per Patient he has gone to pharmacy two other times and they sent medication refillrequest but still there is no script sent. Patient is a little upset said it is now Wednesday and he doesn't have any medication to make it through the weekend. Patient wants script sent RENITA documented in this encounter Plan of Treatment Not on file documented as of this encounter Visit Diagnoses Not on filedocumented in this encounter Additional Health Concerns Assessment Noted Time PHQ-9 Depression Total Score: 0 10/17/20 24 1:50 PM EST documented as of this encounter Care Teams Account Manager Trainee Relationship Specialty Start Date End Date Pedro Pulliam MD [address] [place] [address] PCP - General Internal Medicine 09/10/14 Niko Salamanca MD [address] [place] [address] [address] [place] [address] Nephrology 01/16/25 Summer Wills MD [address] [place] [address] Hematology and Oncology 06/27/25 documented as of this encounter
--- OUTSIDE RECORDS SUMMARY | 2025-08-31 10:12 | XMS_ITS | Encounter Summary ---
Author Organization [employer] Address [address] [facility] 7t [place] [address] Care Team Providers Care Rn Psych Name Role Phone Pedro Pulliam MD Primary Care Provide r Niko Salamanca MD Unavailable [phone] Summer Wills MD Unavailable [phone] Reason for Visit * Reason Onset Date Comments OV 03/1602/17/2024 Encounter Details Date Type Department Care Team (Late st Contact Info) Description 02/17/2024 Telephone [facility] MEDICINE [address] [place], [place] [phone] Pedro Pulliam MD [address] [place], [place] [phone] OV 03/16 Social History Tobacco Use Types [...] any questions you can contact pt at [phone]. documented in this encounter Plan of Treatment Not on file documented as of this encounter Visit Diagnoses Not on filedocumented in this encounter Additional Health Concerns Assessment Noted Time PHQ-9 Depression Total Score: 1 09/23/20 23 1:21 PM EST documented as of this encounter Care Teams Rn Psych Relationship Specialty Start Date End Date Pedro Pulliam MD [address] [place] [address] PCP - General Internal Medicine 09/10/14 Niko Salamanca MD [address] [place] [address] Nephrology 01/16/25 Summer Wills MD [address] [place] [address] Hematology and Oncology 06/27/25 documented as of this encounter
--- OUTSIDE RECORDS SUMMARY | 2025-08-31 10:12 | XMS_ITS | Encounter Summary ---
Author Organization [facility] Address [address] [place] [address] Phone Care Team Providers Care Tour Conductor Name Role Phone Unavailable Primary Care Provider Unavailabl e Encounter Details Date Type Department Care Team (Late st Contact Info) Description 10/28/2018 Ancillary Orders [facility] [address] [place] [address] [place] [address] Felton Triana MD [address] [place] [address] [email or web address] Social History Tobacco Use Types Packs/Day [...] It is not the complete legal health record.[facility]
--- OUTSIDE RECORDS SUMMARY | 2025-08-31 10:12 | XMS_ITS | Encounter Summary ---
Author Organization [employer] Address [address] [facility] 7t [place] [address] Care Team Providers Care Desktop Architect Name Role Phone Pedro Pulliam MD Primary Care Provide r Niko Salamanca MD Unavailable [phone] Summer Wills MD Unavailable [phone] Encounter Details Date Type Department Care Team (Late st Contact Info) Description 02/01/2023 Orders Only [facility] MED & PEDS [address] [place] [address] Shira Castano LPN Social History Tobacco Use [...] on filedocumented in this encounter Care Teams Desktop Architect Relationship Specialty Start Date End Date Pedro Pulliam MD [address] [place] [address] PCP - General Internal Medicine 09/10/14 Niko Salamanca MD [address] [place] [address] Nephrology 01/16/25 Summer Wills MD [address] [place] [address] Hematology and Oncology 06/27/25 documented as of this encounter
--- OUTSIDE RECORDS SUMMARY | 2025-08-31 10:12 | XMS_ITS | Encounter Summary ---
Author Organization [facility] Address [address] [place] [address] Phone Care Team Providers Care Mandrel Press Hand Name Role Phone Unavailable Primary Care Provider Unavailabl e Encounter Details Date Type Department Care Team (Late st Contact Info) Description 10/28/2018 Ancillary Orders [facility] [address] [facility] 3rd Floor, [address] [place], [place] [address] Felton Triana MD [address] [place] [address] [email or web address] Social History Tobacco Use Types Packs/Day Years [...] It is not the complete legal health record.[facility]
--- OUTSIDE RECORDS SUMMARY | 2025-08-31 10:12 | XMS_ITS | Clinical Summary ---
Author Organization [facility] Address [address] [address] Care Team Providers Care Event Sales Representative Name Role Phone Pedro Snow MD Primary [...] age to complete this topic Care Teams Event Sales Representative Relationship Specialty Start Date End Date Pedro Snow MD PCP - General 11/18/20
--- OUTSIDE RECORDS SUMMARY | 2025-08-31 10:12 | XMS_ITS | Encounter Summary ---
Author Organization [employer] Address [address] [facility] 7t [place] [address] Care Team Providers Care Per Diem Nurse Name Role Phone Pedro Pulliam MD Primary Care Provide r Niko Salamanca MD Unavailable [phone] Summer Wills MD Unavailable [phone] Reason for Visit * Reason Comments Med Refill Encounter Details Date Type Department Care Team (Late st Contact Info) Description 06/02/2024 Refill [facility] [address] [place], [place] [phone] Pedro Pulliam MD [address] [place], [place] [phone] Primary hypertension; Stage 3 chronic kidney disease, [...] whether stage 3a or 3b CKD (CMS/HCC) ([facility]) Nonrheumatic tricuspid valve regurgitation documented in this encounter Additional Health Concerns Assessment Noted Time PHQ-9 Depression Total Score: 1 09/23/20 23 1:21 PM EST documented as of this encounter Care Teams Per Diem Nurse Relationship Specialty Start Date End Date Pedro Pulliam MD [address] [place] [address] PCP - General Internal Medicine 09/10/14 Niko Salamanca MD [address] [place] [address] Nephrology 01/16/25 Summer Wills MD [address] [place] [address] Hematology and Oncology 06/27/25 documented as of this encounter
--- OUTSIDE RECORDS SUMMARY | 2025-08-31 10:12 | XMS_ITS | Clinical Summary ---
Author Organization [facility] ity Address [address] [place] [address] Care Team Providers Care Personnel Security Specialist Name Role Phone Unavailable Primary Care Provider [...] Documents on File Type Date Recorded Patient Therapy Aide Expl anation Health Care Decision (hx) 01/10/2020 AD PHILLIP DIRECTIVE
--- OUTSIDE RECORDS SUMMARY | 2025-08-31 10:12 | XMS_ITS | Patient Health Record ---
Author Organization [facility] Address [address] [place] [address] Care Team Providers Care Yarn Washer Name Role Phone Gwendolyn Julian MD, Pedro Primary Care Provide r Unavailable Favian Hardin Jr Unavailable [phone] Reason For Referral No Information Plan Of Treatment No Information Insurance Providers Payer Name Payer Address Payer Phone Subscriber Number Group Number Insured Name Patient Relationship to Insured Coverage Start Date Coverage End Date MEDICARE OF [facility] [address] [facility] [place] [id number] LILY RINCON Self - patient is the insured
--- OUTSIDE RECORDS SUMMARY | 2025-08-31 10:12 | XMS_ITS | Clinical Summary ---
Author Organization [facility] Address [address] [address] Phone Care Team Providers Care Airplane Pilot Crop Dusting Name Role Phone Unavailable Primary Care Provider [...] file Medical Devices Not on file Insurance [employer] MEDICARE REPLACEMENT [employer] [id number] [place] [address] MEDICARE REPLACEMENT [facility] MEDICARE REPLACEMENT [facility] MEDICARE REPLAC[place] [address] [place] [address] MEDICARE REPLACEMENT [facility] MEDICARE REPLACEMENT [facility] MEDICARE REPLACEMENT [facility] MEDICARE REPLACEMENT Additional Source Comments The information contained in this document represents components of the legal health record. It is not the complete legal health record.[facility]
[2025-08-31 11:40] LABS: Hematocrit 26.4 % (42.0-52.0); Hemoglobin 8.3 g/dl (14.0-18.0); Imm Gran Abs Auto 0.01 X10*3/uL (0.00-0.03); Imm Gran Pct Auto 0.5 % (0.0-0.4); Lymphocytes Absolute Auto 0.4 X10*3/uL (1.2-4.9); Mean Corpuscular HGB Conc 31.4 g/dl (31.0-36.0); Mean Corpuscular Hemoglobin 29.9 pg (27.0-33.0); Mean Corpuscular Volume 95.0 fL (80.0-98.0); NRBC Abs Auto 0.000 X10*3/uL (0.0-0.012); NRBC Pct Auto 0.0 /100WBC (0.0-0.2); Red Blood Count 2.78 X10*6/uL (4.60-5.80); SCAN SMEAR FLAG 1
[2025-08-31 11:50] LABS: MANUAL DIFF FLAG NO; Platelet Count 76 X10*3/uL (160-400); White Blood Count 2.1 X10*3/uL (4.8-10.8)
[2025-08-31 12:24] LABS: Anion Gap 9 (12-20); Blood Urea Nitrogen 21 mg/dL (9-16); Calcium 8.2 mg/dL (8.4-10.2); Carbon Dioxide 21 mmol/L (22-29); Chloride 113 mmol/L (96-108); Estimated Glomerular Filt Rate 30; Potassium 3.9 mmol/L (3.3-5.1); Sodium 139 mmol/L (135-145)
[2025-08-31 12:43] LABS: Appearance Urine Clear; Glucose Urine UA Negative (Negative); PH 5.0 (5.0-9.0); Specific Gravity - Urine 1.010 (1.005-1.025); UMIC TRIGGER UA YES
[2025-08-31 13:06] LABS: Total Protein Urine Random 28 mg/dL (<12)
[2025-09-04 17:39] LABS: PES - Abn Protein Band 1 0.7 g/dL (NONE DETECTED); Prot Elec - Albumin 3.9 g/dL (3.8-4.8); Prot Elec - Alpha1 0.3 g/dL (0.2-0.3); Prot Elec - Alpha2 0.5 g/dL (0.5-0.9); Prot Elec - Beta 1 0.4 g/dL (0.4-0.6); Prot Elec - Beta 2 0.4 g/dL (0.2-0.5); Prot Elec - Gamma 1.7 g/dL (0.8-1.7); Prot Elec - Total Protein 7.1 g/dL (6.1-8.1)
== END 2025-08-31 09:21 | disposition home or self-care (01) ==
LOC: HO.HHCL 09:20
PROVIDERS: PCP Internal Medicine; Referring Provider Internal Medicine Medical Oncology; Visit Provider Internal Medicine Hypertension Specialist
DX: N18.9 Chronic kidney disease, unspecified (principal); D63.8 Anemia in other chronic diseases classified elsewhere
CPT/HCPCS: 36415; 80048; 81001; 82570; 82784; 84156; 84165; 85025; 86334

== ENCOUNTER 2025-09-04 11:00 | Outpatient (AMB) | payer OTHER, SELFPAY ==
[2025-09-04 11:07] VITALS: BP 130/40; PULSE 48; O2SAT 98; BMI 27.2
--- NOTE | 2025-09-04 11:07 | HO.NEPHOV_ITS ---
Vital Signs 09/04/25 11:07 Height 5 ft 9 in Weight 184 lb BMI 27.2 BP 130/40 L Blood Pressure Location Lt brachial Position Sitting Pulse 48 L Pulse Source Pulse Oximeter Pulse Oximetry (%) 98 Oxygen Delivery Method Room Air Intake Visit Reasons: 3mon follow-up w/labs confirmed Wire Preparation Machine Tender Required: Yes Wire Preparation Machine Tender Name: matti [id number] Accompanied by: Self / Same As Patient Allergies No Known Allergies (No Known Allergies*) Allergy (Verified 09/04/25 11:08) Medication List - Last Reconciled 09/04/25 by Niko Salamanca MD amlodipine 5 mg PO DAILY atorvastatin 80 mg PO BEDTIME carbamide peroxide 6.5% (Ear Wax Removal Drops) 5 drps otic (ear) left BID cholecalciferol (vitamin D3) 25 mcg PO DAILY dorzolamide-timolol 22.3-6.8 mg/mL 22.3 drps ophthalmic (eye) BID ferrous sulfate (FeroSul) 1 tab PO DAILY furosemide 40 mg PO DAILY iron sucrose (Venofer) 200 mg IV Q3D octreotide acetate (Mycapssa) 20 mg PO DAILY Held on 11/20/22. Instructions: rejected by insurance terazosin 5 mg PO BEDTIME 90 days travoprost 0.004% 1 drp ophthalmic (eye) BEDTIME warfarin 5 mg See Protocol PO DAILY HPI Comments Details: Joby is a pleasant 79-year-old man with a history of chronic kidney disease. He has a history of BPH and he has been evaluated by Urology. He has been referred for chronic kidney disease. As of 07/31/2024 serum creatinine was 1.61. This has remained unchanged for at least 2 months. Ongoing medical problems include hypertension and atrial fibrillation. Today he is having some difficulty urination. No hematuria. No urgency. No fever. No shortness of breath no chest pain nausea or vomiting. 03/13/25 ;Still has difficulty urinating ;Has not seen Urology ;Recently has dysuria and treated with antibiotics- cannot recall the name of the medication 05/08/25 After stopping Lisinopril, Cr is better ;No urinary issues ;Still has some leg edema ;No dyspnea 09/05/25 - The patient is a 80-year-old male presenting with chronic kidney disease. - Persistent anemia noted. - Slight improvement in kidney function. - Peripheral edema present, - Blood pressure controlled. - Dyspnea on exertion, present. Recently seen by cardiology but no changes were made - Furosemide not taken for three weeks, - says he was unable to get refill from PCP - Weight increased from 166 to 184 pounds since January. Severe anemia- followed by Hematology; s/p IV Iron [facility] Medical History (Updated 07/25/25 @ 12:17 by Summer Wills MD) Gynecomastia Atrial fibrillation Tubular adenoma Dyslipidemia HTN (hypertension) Surgical History Hx of bilateral cataract extraction Hx of colonoscopy History of esophagogastroduodenoscopy (EGD) Family History Father Throat cancer Brother Prostate cancer Asthma Sister Hypertension Diabetes Mother Hypertension Social History Household Members: None Housing: Apartment Are you a primary career and transition teacher to a significant other at home: No Do you presently have visiting nurse or other home services: Yes (every 6 months) Alcohol intake: former Patient Tobacco Use Status: Former Tobacco user Tobacco use type: Cigarette service: No Current occupational status: retired Physical Exam Vital Signs: Last Vital Signs Pulse 48 L 09/04/25 11:07 BP 130/40 L 09/04/25 11:07 Pulse Ox 98 09/04/25 11:07 Oxygen Delivery Method Room Air 09/04/25 11:07 BMI result Body Mass Index 27.2 Comfortable Neck supple no JVD. Lungs entry equal no rales. Heart S1-S2 heard no gallop or rub. Abdomen soft nontender. Neuro alert awake oriented. No asterixis. Extremities 1 + Pedal edema. Const General: comfortable; No acute distress Orientation/consciousness: patient oriented x3 Eyes General: appearance normal, both eyes and all related structures Visual Damon: normal visual damon by confrontation Neck Neck: Yes supple and Yes no JVD Resp Effort & Inspection: normal respiratory effort and respiratory effort not decreased Cardio Palpation: no palpable S3 and no palpable S4 Heart sounds: no rubs GI Inspection: Yes normal to inspection Palpation (GI): Soft to palpation Percussion: Yes normal to percussion Auscultation: normal bowel sounds General: Yes no CVA tenderness Back/Spine/Pelvis Back: no CVA tenderness Skin General skin exam: no petechiae and no purpura Neuro General: patient oriented x3 and no focal motor deficits Extrem General: No clubbing and Yes edema (1+) Results Reviewed Results Reviewed: ECHO 2023 1. Low normal LV ejection fraction of 50-55% 2. Severe biatrial enlargement 3. Mild aortic regurgitation 4. Moderate tricuspid regurgitation with upper limits of normal RV systolic pressure and mildly elevated right atrial pressures 5. Mildly dilated ascending aorta at 3.9 cm 6. No gross pericardial effusion Nephrology Results: Hgb, (14.0-18.0) 8.3 g/dl L 08/31/25 WBC, (4.8-10.8) 2.1 X10*3/uL L 08/31/25 Plt Count, (160-400) 76 X10*3/uL L 08/31/25 Sodium, (135-145) 139 mmol/L 08/31/25 Potassium, (3.3-5.1) 3.9 mmol/L 08/31/25 Chloride, (96-108) 113 mmol/L H 08/31/25 Carbon Dioxide, (22-29) 21 mmol/L L 08/31/25 BUN, (9-16) 21 mg/dL H 08/31/25 Creatinine, (0.5-1.4) 2.12 mg/dL H 08/31/25 Calcium, (8.4-10.2) 8.2 mg/dL L 08/31/25 Urine Protein, (Neg-Trace) 30 (1+) mg/dL H 08/31/25 Urine Creatinine 98.99 mg/dL 08/31/25 Renal US 02/19/25 Assessment & Plan Assessment & Plan (1) CKD (chronic kidney disease): Code(s): N18.9 - Chronic kidney disease, unspecified Category: Medical (2) HTN (hypertension): Code(s): I10 - Essential (primary) hypertension Category: Medical Qualifiers: Hypertension type: unspecified Qualified Code(s): I10 - Essential (primary) hypertension (3) Anemia: Code(s): D64.9 - Anemia, unspecified Category: Medical (4) BPH w urinary obs/LUTS: Code(s): N40.1 - Benign prostatic hyperplasia with lower urinary tract symptoms; N13.8 - Other obstructive and reflux uropathy Category: Medical Plan . 80-year-old man with longstanding hypertension and BPH has chronic kidney disease. Serum creatinine has been stable around 1.6 mg/dL. Recent bump to 1.9 to 2.4 Cr close to baseline now He has a history of bladder outlet obstruction and he was seen by Dr. Melo urinary retention/obstructive uropathy to explain CKD. Needs follow up with Urology Other possibility would include hypertensive nephrosclerosis. In the past urine sediments were bland therefore glomerular nephritis or interstitial disease seem unlikely. Stay on low-sodium diet Continue to increase p.o. intake. Blood pressure is acceptable. I will continue the same antihypertensive medications He should stay on low-sodium diet. 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 Recent weight gain Resume LAsix at 40 mg dialy Cardiology follow up Orders: Orders Basic Metabolic Panel 3 Months N18.9 - Chronic kidney disease, unspecified Complete Blood Count no Diff 3 Months N18.9 - Chronic kidney disease, unspecified Medications: New furosemide 40 mg PO DAILY 90 tabs 1RF Coding Level of Care Code Est Pt Level 4 (37061) Diagnoses CKD (chronic kidney disease) N18.9 Hypertension, unspecified type I10 Hypertension type: unspecified Anemia D64.9 BPH w urinary obs/LUTS N40.1; N13.8
--- OUTSIDE RECORDS SUMMARY | 2025-09-04 14:09 | XMS_ITS | Encounter Summary ---
Author Organization [employer] Address [address] [place] [address] 7t [place] [address] Care Team Providers Care Carbon Blocks Press Operator Name Role Phone Pedro Pulliam MD Primary Care Provide r Niko Salamanca MD Unavailable [phone] Summer Wills MD Unavailable [phone] Encounter Details Date Type Department Care Team (Late st Contact Info) Description 05/31/2023 Orders Only [facility] MED[facility]INE [address] [place] [address] Shanita Pfeiffer LPN Social History Tobacco Use [...] on filedocumented in this encounter Care Teams Carbon Blocks Press Operator Relationship Specialty Start Date End Date Pedro Pulliam MD [address] [place] [address] PCP - General Internal Medicine 09/10/14 Niko Salamanca MD [address] [place] [address] Nephrology 01/16/25 Summer Wills MD [address] [place] [address] Hematology and Oncology 06/27/25 documented as of this encounter
--- OUTSIDE RECORDS SUMMARY | 2025-09-04 14:09 | XMS_ITS | Encounter Summary ---
Author Organization [employer] Address [address] [facility] 7t [place] [address] Care Team Providers Care Weight Yardage Checker Name Role Phone Pedro Pulliam MD Primary Care Provide r Niko Salamanca MD Unavailable [phone] Summer Wills MD Unavailable [phone] Encounter Details Date Type Department Care Team (Late st Contact Info) Description 01/06/2023 Orders Only [facility] MED & PEDS [address] [place] [address] Shira Castano LPN Social History Tobacco Use [...] on filedocumented in this encounter Care Teams Weight Yardage Checker Relationship Specialty Start Date End Date Pedro Pulliam MD [address] [place] [address] PCP - General Internal Medicine 09/10/14 Niko Salamanca MD [address] [place] [address] Nephrology 01/16/25 Summer Wills MD [address] [place] [address] Hematology and Oncology 06/27/25 documented as of this encounter
--- OUTSIDE RECORDS SUMMARY | 2025-09-04 14:09 | XMS_ITS | Encounter Summary ---
Author Organization [employer] Address [address] [facility] 7t [place] [address] Care Team Providers Care Dairy Equipment Mechanic Name Role Phone Pedro Pulliam MD Primary Care Provide r Niko Salamanca MD Unavailable [phone] Summer Wills MD Unavailable [phone] Reason for Visit * Reason Comments Med Refill Encounter Details Date Type Department Care Team (Late st Contact Info) Description 08/19/2025 Refill [facility]INE [address] [place], [place] [phone] Pedro Pulliam MD [address] [place], [place] [phone] Vitamin D deficiency Social History Tobacco Use [...] documented as of this encounter Care Teams Dairy Equipment Mechanic Relationship Specialty Start Date End Date Pedro Pulliam MD [address] [place] [address] PCP - General Internal Medicine 09/10/14 Niko Salamanca MD [address] [place] [address] Nephrology 01/16/25 Summer Wills MD [address] [place] [address] Hematology and Oncology 06/27/25 documented as of this encounter
--- OUTSIDE RECORDS SUMMARY | 2025-09-04 14:10 | XMS_ITS | Encounter Summary ---
Author Organization [facility] Address [address] [place] [address] Phone Care Team Providers Care Crown Assembly Machine Set Up Mechanic Name Role Phone Unavailable Primary Care Provider Unavailabl e Encounter Details Date Type Department Care Team (Late st Contact Info) Description 10/28/2018 Ancillary Orders [facility] [address] [facility] 3rd Floor, [address] [place], [place] [phone] Felton Triana MD [address] [place] [address] [email or web address] [...] It is not the complete legal health record.[facility]
--- OUTSIDE RECORDS SUMMARY | 2025-09-04 14:10 | XMS_ITS | Encounter Summary ---
Author Organization [employer] Address [address] 7t [place] [address] Care Team Providers Care Lipcoat Sprayer Name Role Phone Pedro Pulliam MD Primary Care Provide r Niko Salamanca MD Unavailable [phone] Summer Wills MD Unavailable [phone] Encounter Details Date Type Department Care Team (Late st Contact Info) Description 08/31/2025 Orders Only GENERIC EXTERNAL DATA DEPARTMENT Provider, [...] Procedure Name Priority Date/Time Associated Diagnosis Comments CBC WITH AUTO DIFFERENTIAL Routine 08/31/2025 9:26 AM EDT URINE PROTEIN, TOTAL, RANDOM (W/O CREATININE) Routine 08/31/2025 9:26 AM EDT CREATININE, RANDOM URINE Routine 08/31/2025 9:26 AM EDT URINALYSIS, COMPLETE Routine 08/31/2025 9:26 AM EDT BASIC METABOLIC PANEL Routine 08/31/2025 9:26 AM EDT documented in this encounter Results * (ABNORMAL) Urine Protein, Total, Random without Creatinine (08/31/2025 9:26 AM EDT) Protein, Total, Random Urine 28(H) <12 mg/dL [facility] 08/31/2025 9:26 AM EDT 08/31/2025 12:23 PM EDT us Generic External Data Provider LAB URINE ORDERAB LES Final Result [facility] [address] [place] [phone] * Creatinine, Random Urine (08/31/2025 9:26 AM EDT) Creatinine, Urine 98.99 mg/dL [facility] 08/31/2025 9:26 AM EDT 08/31/2025 12:23 PM EDT Generic External Data Provider LAB URINE ORDERAB LES Final Result Performing Organization Address [facility] de Phone Number [facility] [address] [place] [phone] * (ABNORMAL) Urinalysis Complete (08/31/2025 9:26 AM EDT) Color Urine Yellow [facility] Appearance Urine Clear [facility] PH 5.0 5.0 - 9.0 [facility] Glucose Urine UA Negative Negative mg/dL [facility] Urine Blood Trace(A) Negative [facility] Specific Bradford - Urine 1.010 1.005 - 1.025 [facility] Urine Protein 30 (1+)(A) Neg-Trace mg/dL [facility] Urine Ketones Negative Negative mg/dL [facility] Nitrite Urine Negative Negative [facility] Leukocyte Esterase Urine Negative Negative [facility] RBC Urine 0-2 0 - 2 /HPF [facility] Urine WBC 0-5 0 - 5 /HPF [facility] Urine Squamous Epithelial Cell 0-2 0 - 2 /HPF [facility] Urine Bacteria None Seen None Seen [facility] Hyaline Casts, Urine 3-5 0 - 2 /LPF [facility] 08/31/2025 9:26 AM EDT 08/31/2025 12:23 PM EDT us Generic External Data Provider LAB URINE ORDERAB LES Final Result Performing Organization Address [facility] de Phone Number [facility] [address] [place] [phone] * (ABNORMAL) Basic Metabolic Panel (08/31/2025 9:26 AM EDT) Sodium 139 135 - 145 mmol/L [facility] Potassium 3.9 3.3 - 5.1 mmol/L [facility] Chloride 113(H) 96 - 108 mmol/L [facility] Carbon Dioxide 21(L) 22 - 29 mmol/L [facility] Anion Gap 9(L) 12 - 20 [facility] Urea Nitrogen (BUN) 21(H) 9 - 16 mg/dL [facility] Creatinine, Serum 2.12(H) 0.5 - 1.4 mg/dL [facility] Estimated Glomerular Filt Rate 30 [facility] Comment:Chronic Kidney Disea se: Estimated GFR < 60 mL/min/1.07d9Ayrdkx Kidney Disease: Estimated GFR < 15 mL/min/1.73m2 Glucose 85 60 - 115 mg/dL [facility] Calcium 8.2(L) 8.4 - 10.2 mg/dL [facility] 08/31/2025 9:26 AM EDT 08/31/2025 11:20 AM EDT us Generic External Data Provider LAB BLOOD ORDERAB LES Final Result Performing Organization Address City/State/[facility] Co de Phone Number [facility] [address] [place] [phone] * (ABNORMAL) CBC auto differential (08/31/2025 9:26 AM EDT) [facility] White Blood Count 2.1(L) 4.8 - 10.8 X10*3/uL [facility] Red Blood Count 2.78(L) 4.60 - 5.80 X10*6/uL [facility] Hemoglobin 8.3(L) 14.0 - 18.0 g/dl [facility] Hematocrit 26.4(L) 42.0 - 52.0 % [facility] Mean Corpuscular Volume 95.0 80.0 - 98.0 fL [facility] Mean Corpuscular Hemoglobin 29.9 27.0 - 33.0 pg [facility] Mean Corpuscular HGB Conc 31.4 31.0 - 36.0 g/dl [facility] Red Cell Distribution Width 15.9 11.0 - 16.0 % [facility] Platelet Count 76(L) 160 - 400 X10*3/uL [facility] Mean Platelet Volume 10.1 9.4 - 12.4 fL [facility] Neutrophils Percent Auto 58.8 45 - 73 % [facility] Imm Gran Pct Auto 0.5(H) 0.0 - 0.4 % [facility] Lymphocytes Percent Auto 21.3 20 - 40 % [facility] Monocytes Percent Auto 15.0(H) 2 - 11 % [facility] Eosinophils Percent Auto 3.9 0 - 4 % [facility] Basophils Percent Auto 0.5 0 - 2 % [facility] NRBC Pct Auto 0.0 0.0 - 0.2 /100WBC [facility] Neutrophils Absolute Auto 1.2(L) 2.0 - 8.3 x10*3/uL [facility] Imm Gran Abs Auto 0.01 0.00 - 0.03 X10*3/uL [facility] Lymphocytes Absolute Auto 0.4(L) 1.2 - 4.9 X10*3/uL [facility] Monocytes Absolute Auto 0.3 0.1 - 1.2 X10*3/uL [facility] Eosinophils Absolute Auto 0.1 0.0 - 0.4 X10*3/uL [facility] Basophils Absolute Auto 0.0 0.0 - 0.2 X10*3/uL [facility] NRBC Abs Auto 0.000 0.0 - 0.012 X10*3/uL [facility] 08/31/2025 9:26 AM EDT 08/31/2025 11:20 AM EDT us Generic External Data Provider LAB BLOOD ORDERAB LES Edited Result - Final [facility] [address] [place] [phone] [phone] documented in this encounter Visit Diagnoses Not on filedocumented in this encounter Additional Health Concerns Assessment Noted Time PHQ-9 Depression Total Score: 0 10/17/20 24 1:50 PM EST documented as of this encounter Care Teams Lipcoat Sprayer Relationship Specialty Start Date End Date Pedro Pulliam MD [address] [place] [address] PCP - General Internal Medicine 09/10/14 Niko Salamanca MD [address] [place] [address] Nephrology 01/16/25 Summer Wills MD [address] [place] [phone] Hematology and Oncology 06/27/25 documented as of this encounter
--- OUTSIDE RECORDS SUMMARY | 2025-09-04 14:10 | XMS_ITS | Encounter Summary ---
Author Organization [employer] Address [address] [facility] 7t [place] [address] Care Team Providers Care Rehabilitation Program Coordinator Name Role Phone Pedro Pulliam MD Primary Care Provide r Niko Salamanca MD Unavailable [phone] Summer Wills MD Unavailable [phone] Reason for Visit * Reason Comments Med Refill Encounter Details Date Type Department Care Team (Late st Contact Info) Description 06/02/2024 Refill [facility] MEDICINE [address] [place], [place] [phone] Pedro Pulliam MD [address] [place], [place] [phone] Primary hypertension; Stage 3 chronic kidney disease, [...] whether stage 3a or 3b CKD (CMS/HCC) ([facility]) Nonrheumatic tricuspid valve regurgitation documented in this encounter Additional Health Concerns Assessment Noted Time PHQ-9 Depression Total Score: 1 09/23/20 23 1:21 PM EST documented as of this encounter Care Teams Rehabilitation Program Coordinator Relationship Specialty Start Date End Date Pedro Pulliam MD [address] [place] [address] PCP - General Internal Medicine 09/10/14 Niko Salamanca MD [address] [place] [address] Nephrology 01/16/25 Summer Wills MD [address] [place] [address] Hematology and Oncology 06/27/25 documented as of this encounter
--- OUTSIDE RECORDS SUMMARY | 2025-09-04 14:10 | XMS_ITS | Clinical Summary ---
Author Organization [facility] Address [address] [address] Care Team Providers Care Manager Packaging Name Role Phone Pedro Snow MD Primary [...] age to complete this topic Care Teams Manager Packaging Relationship Specialty Start Date End Date Pedro Snow MD PCP - General 11/18/20
--- OUTSIDE RECORDS SUMMARY | 2025-09-04 14:10 | XMS_ITS | Encounter Summary ---
Author Organization [employer] Address [address] [facility] 7t [place] [address] Care Team Providers Care Muleser Name Role Phone Pedro Pulliam MD Primary Care Provide r Niko Salamanca MD Unavailable [phone] Summer Wills MD Unavailable [phone] Encounter Details Date Type Department Care Team (Late st Contact Info) Description 02/01/2023 Orders Only [facility] CH[facility] MED & PEDS [address] [place] [address] Shira Castano LPN Social History Tobacco Use [...] on filedocumented in this encounter Care Teams Muleser Relationship Specialty Start Date End Date Pedro Pulliam MD [address] [place] [address] PCP - General Internal Medicine 09/10/14 Niko Salamanca MD [address] [place] [address] Nephrology 01/16/25 Summer Wills MD [address] [place] [address] Hematology and Oncology 06/27/25 documented as of this encounter
--- OUTSIDE RECORDS SUMMARY | 2025-09-04 14:10 | XMS_ITS | Encounter Summary ---
Author Organization [employer] Address [address] [facility] 7t [place] [address] Care Team Providers Care Lead Cashier Name Role Phone Pedro Pulliam MD Primary Care Provide r Niko Salamanca MD Unavailable [phone] Summer Wills MD Unavailable [phone] Reason for Visit * Reason Onset Date Comments Med Refill 2023 Encounter Details Date Type Department Care Team (Late st Contact Info) Description [address] [facility] [address] [place], [place] [phone] Pedro Pulliam MD [address] [place], [place] [phone] Atrial fibrillation, unspecified type (CMS/HCC) (Primary Dx) [...] Primary documented in this encounter Care Teams Lead Cashier Relationship Specialty Start Date End Date Pedro Pulliam MD [address] [place] [address] PCP - General Internal Medicine 09/10/14 Niko Salamanca MD [address] [place] [address] Nephrology 01/16/25 Summer Wills MD [address] [place] [phone] Hematology and Oncology 06/27/25 documented as of this encounter
--- OUTSIDE RECORDS SUMMARY | 2025-09-04 14:10 | XMS_ITS | Encounter Summary ---
Author Organization [employer] Address [address] [facility] 7t [place] [address] Care Team Providers Care Candle Wrapping Machine Operator Name Role Phone Pedro Pulliam MD Primary Care Provide r Niko Salamanca MD Unavailable [phone] Summer Wills MD Unavailable [phone] Reason for Visit * Reason Onset Date Comments Medication Question 08/31/2025 Encounter Details Date Type Department Care Team ([facility] st Contact Info) Description 08/31/2025 Telephone [facility] [address] [place], [place] [phone] Pedro Pulliam MD [address] [place], [place] [phone] Medication Question Social History Tobacco Use Types [...] Telephone Encounter - Nirmala Varner RN - 09/04/2025 1:36 PM EDT TC from Dr. Montalvo's office at [facility] to inform that the pt was prescribed Lasix [address] Garza at [facility]. Per Dr. Montalvo's office the pt should be on this medication. * Telephone Encounter - Emily Solorio RN - 09/04/2025 12:05 PM EDT Notified by [facility] that Dr. Salamanca from [facility] just sent lasix 40mg, [facility] pharmacy to fill now. * Telephone Encounter - Emily Solorio RN - 09/04/2025 10:28 AM EDT Called [facility] pharmacy, no med sent yet. Called Dr. Tinsley's office, reached [place] who said 08/31/25 message is pending and will reach out again to clarify if pt should be taking lasix 40mg or not as not on med list , Dr. Tinsley is out of office until tomorrow 09/05/25. Their office will call back [phone]. * Telephone Encounter - Emily Solorio RN - 08/31/2025 11:18 AM EDT Per last cardiology note 05/22/25, lasix not on medication list. Called cardiology office of Dr. Tinsley to clarify plan regarding this medication. Left voicemail asking for callback to [phone]. Pt saw PCP Dr. Snow on 07/17/25, plan copied below references lasix increase to 40mg: Lower Extremity Edema - History of leg swelling - Previously prescribed furosemide (referred to as the water pill ), initially at 20 mg, later increased to 40 mg - Medication change occurred approximately one month ago - Swelling associated with underlying kidney issues, as discussed with chaperon - Advised to reduce salt intake due to fluid retention * Telephone Encounter - Crissy Louis - [...] Noted Time PHQ-9 Depression Total Score: 0 12/10/20 24 1:50 PM EST documented as of this encounter Care Teams Candle Wrapping Machine Operator Relationship Specialty Start Date End Date Pedro Pulliam MD [address] [place] [address] PCP - General Internal Medicine 09/10/14 Niko Salamanca MD [address] [place] [address] Nephrology 01/16/25 Summer Wills MD [address] [place] [phone] Hematology and Oncology 06/27/25 documented as of this encounter
--- OUTSIDE RECORDS SUMMARY | 2025-09-04 14:10 | XMS_ITS | Encounter Summary ---
Author Organization [email or web address] Address [address] [place] [address] 7t [place] [address] Care Team Providers Care Electrical Manufacturing Technician Name Role Phone Pedro Pulliam MD Primary Care Provide r Niko Salamanca MD Unavailable [phone] Summer Wills MD Unavailable [phone] Encounter Details Date Type Department Care Team (Late st Contact Info) Description 02/25/2023 Orders Only [facility] 230 [place] [address] Shanita Pfeiffer LPN Social History Tobacco Use [...] on filedocumented in this encounter Care Teams Electrical Manufacturing Technician Relationship Specialty Start Date End Date Pedro Pulliam MD [address] [place] [address] PCP - General Internal Medicine 09/10/14 Niko Salamanca MD [address] [place] [address] Nephrology 01/16/25 Summer Wills MD [address] [place] [address] Hematology and Oncology 06/27/25 documented as of this encounter
--- OUTSIDE RECORDS SUMMARY | 2025-09-04 14:10 | XMS_ITS | Clinical Summary ---
Author Organization [employer] Address [address] [facility] 7t [place] [address] Care Team Providers Care School Supervisor Name Role Phone Pedro Pulliam MD Primary Care Provide r Niko Salamanca MD Unavailable [phone] Summer Wills MD Unavailable [phone] Allergies No known active allergies Medications [...] pt currently undergoing PT with good results. [facility] 09/23/2023 Assessment & Plan (07/17/2025 2:10 [...] Zoster: 02/26/2015 Stage 3b chronic kidney disease ([facility]/HCC) 201809/15/2023 Assessment & Plan (07/17/2025 1:53 PM [...] showed diverticulosis only by Dr connors at [facility] Mixed hyperlipidemia 08/13/2015 09/15/2023 Assessment & Plan [...] the past by his vascular surgeon at [facility] (Dr Lind) whose recommendation was conservative treatment, he saw NO role for any type of surgical intervention. He recommended to repeat the scan in 1 year and continue to take Asa 81 mg po daily. Pt was last seen by his supervisor inspection room at [facility] 09/14/2023 recommended repeat US and ECHO and 6 month follow up He is on Aspirin started by their office Last Carotid US on record from 02/11/2023 Hypertension 04/21/2012 09/15/2023 Assessment & Plan (07/17/2025 1:54 PM EDT): Pt here for a f/u BP stable He is on a regimen of: Norvasc 5 mg daily, and lasix 20 mg daily prescribed by Hook Tender. Off Lisinopril 40 mg po daily (stopped by Stake Setter 04/01) I had lowered his Lasix due [...] and lasix 20 mg daily prescribed by Hook Tender. Pt is off Lisinopril 40 mg po daily (stopped by Stake Setter 04/01) I had recently lowered his Lasix [...] and lasix 20 mg daily prescribed by Hook Tender. I had recently lowered his Lasix due [...] and lasix 20 mg daily prescribed by Hook Tender. I had recently lowered his Lasix due [...] Am and 20 mg PM prescribed by Hook Tender. I had recently lowered his Lasix due [...] Am and 20 mg PM prescribed by Hook Tender. Pt developed some bilateral ankle edema due [...] Furosemide 20 mg po BID prescribed by Hook Tender. Pt developed some bilateral ankle edema due [...] Furosemide 20 mg po BID prescribed by Hook Tender. Pt developed some bilateral ankle edema due [...] clinical impression. Plan: Breast center referral at [facility] Assessment & Plan (02/01/2024 1:36 PM EDT): [...] Date Type Department Care Team Description 08/31/2025 Orders Only GENERIC EXTERNAL DATA DEPARTMENT Provider, Generic External Data 08/31/2025 Telephone [facility] [address] [place] [address] Pedro Pulliam MD Medication Question 08/22/2025 Orders Only GENERIC EXTERNAL DATA DEPARTMENT Provider, Generic External Data 08/19/2025 Refill [facility] [address] [place] [address] Pedro Pulliam MD Vitamin D deficiency 08/15/2025 Orders Only GENERIC EXTERNAL DATA DEPARTMENT Provider, Generic External Data 08/10/2025 Orders Only GENERIC EXTERNAL DATA DEPARTMENT Provider, Generic External Data 08/08/2025 Telephone [facility] [address] [place] [address] Pedro Pulliam MD Critical INR 08/08/2025 Orders Only GENERIC EXTERNAL DATA DEPARTMENT Provider, Generic External Data 07/25/2025 Orders Only GENERIC EXTERNAL DATA DEPARTMENT Provider, Generic External Data 07/17/2025 2:00 PM EDT Office Visit [facility] [address] [place] [address] Pedro Pulliam MD Primary hypertension (Primary Dx); Stage 3b chronic kidney disease (CMS/HCC); Longstanding persistent atrial fibrillation (CMS/HCC); Primary open angle glaucoma (POAG) of both eyes, indeterminate stage; Gynecomastia; Bilateral leg edema; KARINA (obstructive sleep apnea); Sciatica of left side; Benign prostatic hyperplasia with urinary frequency; Preventative health care 07/17/2025 Travel 07/16/2025 Telephone [facility] [address] [place] [address] Pedro Pulliam MD chart prep 07/11/2025 Orders Only GENERIC EXTERNAL DATA DEPARTMENT Provider, Generic External Data 07/04/2025 Orders Only GENERIC EXTERNAL DATA DEPARTMENT Provider, Generic External Data 06/27/2025 Orders Only GENERIC EXTERNAL DATA DEPARTMENT Provider, Generic External Data 06/26/2025 Results Follow-Up [facility] 230 [place] [address] Avis Koenig MD CBC, Basic Metabolic Panel, [...] your housing situation today? I have prashantchaz redi 10/17/[address] you li [...] Procedure Name Priority Date/Time Associated Diagnosis Comments URINE PROTEIN, TOTAL, RANDOM (W/O CREATININE) Routine 08/31/2025 9:26 AM EDT CREATININE, RANDOM URINE Routine 08/31/2025 9:26 AM EDT URINALYSIS, COMPLETE Routine 08/31/2025 9:26 AM EDT BASIC METABOLIC PANEL Routine 08/31/2025 9:26 AM EDT CBC WITH AUTO DIFFERENTIAL Routine 08/31/2025 9:26 AM EDT PROTHROMBIN TIME WHOLE BLD POC Routine 08/22/2025 [...] Relevant to Health Maintenance Results * (ABNORMAL) CBC auto differential (08/31/2025 9:26 AM EDT) White Blood Count 2.1(L) 4.8 - 10.8 X10*3/uL [facility] Red Blood Count 2.78(L) 4.60 - 5.80 X10*6/uL [facility] Hemoglobin 8.3(L) 14.0 - 18.0 g/dl [facility] Hematocrit 26.4(L) 42.0 - 52.0 % [facility] Mean Corpuscular Volume 95.0 80.0 - 98.0 fL [facility] Mean Corpuscular Hemoglobin 29.9 27.0 - 33.0 pg [facility] Mean Corpuscular HGB Conc 31.4 31.0 - 36.0 g/dl [facility] Red Cell Distribution Width 15.9 11.0 - 16.0 % [facility] Platelet Count 76(L) 160 - 400 X10*3/uL [facility] Mean Platelet Volume 10.1 9.4 - 12.4 fL [facility] Neutrophils Percent Auto 58.8 45 - 73 % [facility] Imm Gran Pct Auto 0.5(H) 0.0 - 0.4 % [facility] Lymphocytes Percent Auto 21.3 20 - 40 % [facility] Monocytes Percent Auto 15.0(H) 2 - 11 % [facility] Eosinophils Percent Auto 3.9 0 - 4 % [facility] Basophils Percent Auto 0.5 0 - 2 % [facility] NRBC Pct Auto 0.0 0.0 - 0.2 /100WBC [facility] Neutrophils Absolute Auto 1.2(L) 2.0 - 8.3 x10*3/uL [facility] Imm Gran Abs Auto 0.01 0.00 - 0.03 X10*3/uL [facility] Lymphocytes Absolute Auto 0.4(L) 1.2 - 4.9 X10*3/uL [facility] Monocytes Absolute Auto 0.3 0.1 - 1.2 X10*3/uL [facility] Eosinophils Absolute Auto 0.1 0.0 - 0.4 X10*3/uL [facility] Basophils Absolute Auto 0.0 0.0 - 0.2 X10*3/uL [facility] NRBC Abs Auto 0.000 0.0 - 0.012 X10*3/uL [facility] 08/31/2025 9:26 AM EDT 08/31/2025 11:20 AM EDT Generic External Data Provider LAB BLOOD ORDERAB LES Edited Result - Final Performing Organization Address City/[facility]/ZIP Co de Phone Number [facility] [address] [place] [phone] * (ABNORMAL) Urine Protein, Total, Random without Creatinine (08/31/2025 9:26 AM EDT) Protein, Total, Random Urine 28(H) <12 mg/dL [facility] 08/31/2025 9:26 AM EDT 08/31/2025 12:23 PM EDT us Generic External Data Provider LAB URINE ORDERAB LES Final Result Performing Organization Address [facility]/ZIP Co de Phone Number [facility] [address] [place] [phone] * Creatinine, Random Urine (08/31/2025 9:26 AM EDT) Creatinine, Urine 98.99 mg/dL [facility] 08/31/2025 9:26 AM EDT 08/31/2025 12:23 PM EDT Generic External Data Provider LAB URINE ORDERAB LES Final Result Performing Organization Address [facility]/ZIP Co de Phone Number [facility] [address] [place] [address] [phone] * (ABNORMAL) Urinalysis Complete (08/31/2025 9:26 AM EDT) Color Urine Yellow [facility] Appearance Urine Clear [facility] PH 5.0 5.0 - 9.0 [facility] Glucose Urine UA Negative Negative mg/dL [facility] Urine Blood Trace(A) Negative [facility] Specific [place] - Urine 1.010 1.005 - 1.025 [facility] Urine Protein 30 (1+)(A) Neg-Trace mg/dL [facility] Urine Ketones Negative Negative mg/dL [facility] Nitrite Urine Negative Negative [facility] Leukocyte Esterase Urine Negative Negative [facility] RBC Urine 0-2 0 - 2 /HPF [facility] Urine WBC 0-5 0 - 5 /HPF [facility] Urine Squamous Epithelial Cell 0-2 0 - 2 /HPF [facility] Urine Bacteria None Seen None Seen [facility] Hyaline Casts, Urine 3-5 0 - 2 /LPF [facility] 08/31/2025 9:26 AM EDT 08/31/2025 12:23 PM EDT Generic External Data Provider LAB URINE ORDERAB LES Final Result Performing Organization Address City/[facility]/ZIP Co de Phone Number [facility] [address] [place] [phone] * (ABNORMAL) Basic Metabolic Panel (08/31/2025 9:26 AM EDT) Only the most recent of2 resultswithin the time period is included. Sodium 139 135 - 145 mmol/L [facility] Potassium 3.9 3.3 - 5.1 mmol/L [facility] Chloride 113(H) 96 - 108 mmol/L [facility] Carbon Dioxide 21(L) 22 - 29 mmol/L [facility] Anion Gap 9(L) 12 - 20 [facility] Urea Nitrogen (BUN) 21(H) 9 - 16 mg/dL [facility] Creatinine, Serum 2.12(H) 0.5 - 1.4 mg/dL [facility] Estimated Glomerular Filt Rate 30 [facility] Comment:Chronic Kidney Disea se: Estimated GFR < 60 mL/min/1.57p2Nbjowg Kidney Disease: Estimated GFR < 15 mL/min/1.73m2 Glucose 85 60 - 115 mg/dL [facility] Calcium 8.2(L) 8.4 - 10.2 mg/dL [facility] 08/31/2025 9:26 AM EDT 08/31/2025 11:20 AM EDT us Generic External Data Provider LAB BLOOD ORDERAB LES Final Result Performing Organization Address [facility] Co de Phone Number [facility] [address] [place] [phone] * (ABNORMAL) PROTHROMBIN TIME WHOLE BLD POC (08/22/2025 11:26 AM EDT) Only the most recent of8 resultswithin the time period is included. Protime 23.8(H) 11.1 - 13.5 sec [facility] 08/22/2025 11:2 6 AM EDT 08/22/2025 11:28 AM EDT Generic External Data Provider LAB BLOOD ORDERAB LES Final Result Performing Organization Address [facility] Co de Phone Number [facility] [address] [place] [phone] * (ABNORMAL) ~PT, ~INR - ANTI COAG CLINIC (08/22/2025 11:26 AM EDT) Only the most recent of8 resultswithin the time period is included. Prothrombin Time INR 2.0(H) 0.9 - 1.1 [facility] Comment:METER #: [id number] TERNATIONAL NORMALIZED RATIO (INR) REFERENCE RANGES Reference [...] Provider LAB BLOOD ORDERAB LES Final Result [facility] [address] [place] [phone] * (ABNORMAL) PSA, Free and Total (06/26/2025 12:16 PM EDT) PSA, Total 5.6(A) < OR = 4.0 ng/mL [facility] PSA % Free 38 >25 % (calc) [facility] Comment: PSA(ng/mL) Free PSA(%) Estimated(x) Probability of Cancer(as%)0-2.5 (*) Approx. 12.6-4.0(1) 0-27(2) 24(3)4.1-10(4) 0-10 56 11-15 28 16-20 20 21-25 16 >or =26 8>10(+) N/A >50References:(1)Tc et al.:Urology 60: 469-474 (2002) (2)Tc et al.:J.Urol 168: 922-925 (2002) Free PSA(%) Sensitivity(%) Specificity(%) < or = 25 85 19 < or = 30 93 9 (3)Tc et al.:MARLEEN 277: 5393-3739 (1997) (4)Tc et al.:MARLEEN 279: 8395-4321 (1998)(x)These estimates vary with age, ethnicity, family [...] presence or absence ofdisease.THIS TEST WAS PERFORMED AT:[employer] [place] [phone] SEGURA MD PSA, Free 2.1 ng/mL [facility] 06/26/2025 12:1 6 PM EDT 06/26/2025 12:16 PM EDT Generic External Data Provider LAB BLOOD ORDERAB LES Final Result [facility] [address] [place] [phone] * (ABNORMAL) PSA, Total With Reflex to PSA, Free (06/26/2025 8:09 AM EDT) PSA,Total (Free>4and<10) 6.40(H) 0.00 - 4.00 ng/mL [facility] Comment:PSA methodology: Angel huang Alipatricia i ChemiluminescentMicroparticle Immunoassay (CMIA) 06/26/2025 8:09 AM EDT 06/26/2025 10:58 AM EDT us Generic External Data Provider LAB BLOOD ORDERAB LES Final Result Performing Organization Address City/[facility]/ZIP Co de Phone Number [facility] [address] [place] [phone] * (ABNORMAL) CBC (06/26/2025 8:09 AM EDT) White Blood Count 2.9(L) 4.8 - 10.8 X10*3/uL [facility] Red Blood Count 2.55(L) 4.60 - 5.80 X10*6/uL [facility] Hemoglobin 7.7(L) 14.0 - 18.0 g/dl [facility] Hematocrit 24.6(L) 42.0 - 52.0 % [facility] Mean Corpuscular Volume 96.5 80.0 - 98.0 fL [facility] Mean Corpuscular Hemoglobin 30.2 27.0 - 33.0 pg [facility] Mean Corpuscular HGB Conc 31.3 31.0 - 36.0 g/dl [facility] Red Cell Distribution Width 14.6 11.0 - 16.0 % [facility] Platelet Count 109(L) 160 - 400 X10*3/uL [facility] Mean Platelet Volume 10.8 9.4 - 12.4 fL [facility] NRBC Pct Auto 0.0 0.0 - 0.2 /100WBC [facility] NRBC Abs Auto 0.000 0.0 - 0.012 X10*3/uL [facility] 06/26/2025 8:09 AM EDT 06/26/2025 10:58 AM EDT us Generic External Data Provider LAB BLOOD ORDERAB LES Final Result Performing Organization Address City/[facility]/ZIP Co de Phone Number [facility] [address] [place] [phone] * (ABNORMAL) Lipid Panel, Standard (01/16/2025 9:13 AM EDT) Pathologist [facility] Triglycerides 40 <150 mg/dL [facility] Comment:Desirable Triglyceri de: less than 150 mg/dLBorderline High Triglyceride 150-199 mg/dLHigh Triglyceride: 200-499 mg/dLVery High Triglyceride: greater than or equal to 5OO mg/dL Cholesterol 93 <200 mg/dL [facility] Comment:Desirable Cholestero l: less than 200 mg/dLBorderline High Cholesterol: 200-239 mg/dLHigh Cholesterol: greater than 239 mg/dL LDL Cholesterol Calculated 58 <100 mg/dL [facility] Comment:Desirable LDL: less than 100 mg/dLNear Optimal/Above Optimal LDL: 110- 129 mg/dLBorderline High LDL: 130-159 mg/dLHigh LDL: 160-189 mg/dLVery High LDL: greater than or equal to 190 mg/dL HDL Cholesterol 27(L) >40 mg/dL [facility] Comment:Desirable HDL: great er than 40 mg/dL Note: This HDL assay may give artificially low results in patients with liver disease. Blood Venous blood specimen / Unknown 01/16/2025 9:13 AM EDT 01/16/2025 11:29 AM EDT us Pedro Julian MD LAB BLOOD ORDERABLES Final Result [facility] [address] [place] [phone] * BI Mammogram Diagnostic Tomosynthesis Bilateral (04/11/2024 3:15 PM EDT) Anatomical Region Laterality Modality Breast Bilateral Mammography 04/11/2024 3:15 PM EDT Narrative 04/11/2024 4:59 PM EDT [facility] [address] [place] [address] Mammography Report Signed Patient: Jamie Carpio MR#: [id number] : 1945 Acct:[id number] Age/Sex: 79 / M ADM Date: 04/11/24 Loc: HO.MAMMO Attending Dr: Pedro Webber MD Ordering Physician: Pedro Webber MD Resu lts: 2Benign Findings Date of Service: 04/11/24 Follow Up: 1 Year From Orig ina Mammogram Procedure(s): MM tomosynthesis diagnostic BI Accession Number(s): [id number] cc: Pedro Webber MD EXAMINATION: MM DIAGNOSTIC [...] in OV> 04/11/24 1654 DD/ 1515 TD/TT: Warehouse Freight Handler: Procedure Note Donotuseinterpreter, Image - 04/11/2024 [facility] [address] [place] [address] Mammography Report Signed Patient: Jaime CarpioR#: [id number] : 6Acct:[id number] Age/Sex: 79 / MADM Date: 04/11/24 Loc: HO.MAMMO Attending Dr: Pedro Webber MD Ordering Physician: Pedro Webber MDResu lts: 2Benign Findings Date of Service: 04/11/24Follow Up: 1 Year From [facility] Mammogram Procedure(s): MM tomosynthesis diagnostic BI Accession Number(s): [id number] cc: Pedro Webber MD EXAMINATION: MM DIAGNOSTIC [...] in OV> 04/11/24 1654 DD/ 1515 TD/TT: Warehouse Freight Handler: us Pedro Julian MD IMG BI PROCEDURES [...] a test for HCV RNA (test code 45238) is suggested. For additional information please refer to http://education.Zady.[employer]/faq/DBQ16i7 (This link is being provided for informational/ educational purposes only.) 12/24/2021 8:24 AM EST us Pedro Julian MD HISTORICAL/NON ORDERA BLE LABS Final Result [facility] [address] from Last 3 Months or Most Recently Relevant to Health Maintenance Insurance Care Teams School Supervisor Relationship Specialty Start Date End Date Pedro Pulliam MD [address] [place] [phone] PCP - General Internal Medicine 09/10/14 Niko Salamanca MD [address] [facility] [place], [place] [phone] Nephrology 01/16/25 Summer Wills MD [address] [place] [address] Hematology and Oncology 06/27/25
--- OUTSIDE RECORDS SUMMARY | 2025-09-04 14:10 | XMS_ITS | Encounter Summary ---
Author Organization [facility] Address [address] [facility] [address] [place] [phone] Phone Care Team Providers Care Oil Change Technician Name Role Phone Unavailable Primary Care Provider Unavailabl e Encounter Details Date Type Department Care Team (Late st Contact Info) Description 10/28/2018 Ancillary Orders [facility] [address] [place] [address] [place] [address] Felton Triana MD [address] [place] [phone] [email or web address] Social History Tobacco Use [...] It is not the complete legal health record.[facility]
--- OUTSIDE RECORDS SUMMARY | 2025-09-04 14:10 | XMS_ITS | Encounter Summary ---
Author Organization [employer] Address [address] [facility] [address] [facility] 7[address] [place] [address] Care Team Providers Care Integration Consultant Name Role Phone Pedro Pulliam MD Primary Care Provide r Niko Salamanca MD Unavailable [phone] Summer Wills MD Unavailable [phone] Reason for Visit * Reason Onset Date Comments OV 03/1602/17/2024 Encounter Details Date Type Department Care Team (Late st Contact Info) Description 02/17/2024 Telephone [facility] MEDICINE [address] [place], [place] [phone] Pedro Pulliam MD [address] [place], [place] [phone] OV 03/16 Social History Tobacco Use Types [...] any questions you can contact pt at [phone]. documented in this encounter Plan of Treatment Not on file documented as of this encounter Visit Diagnoses Not on filedocumented in this encounter Additional Health Concerns Assessment Noted Time PHQ-9 Depression Total Score: 1 09/23/20 23 1:21 PM EST documented as of this encounter Care Teams Integration Consultant Relationship Specialty Start Date End Date Pedro Pulliam MD [address] [place] [address] PCP - General Internal Medicine 09/10/14 Niko Salamanca MD [address] [place] [address] Nephrology 01/16/25 Summer Wills MD [address] [place] [address] Hematology and Oncology 06/27/25 documented as of this encounter
--- OUTSIDE RECORDS SUMMARY | 2025-09-04 14:11 | XMS_ITS | Clinical Summary ---
Author Organization 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
--- OUTSIDE RECORDS SUMMARY | 2025-09-04 14:11 | XMS_ITS | Clinical Summary ---
Author Organization [facility] Address [address] [address] Phone Care Team Providers Care Segment Block Layer Name Role Phone Unavailable Primary Care Provider [...] file Medical Devices Not on file Insurance [facility]AC[facility] AN[employer] [place] [id number] [place] [address] MEDICARE REPLACEMENT [facility] MEDICARE REPLACEMENT [facility] MEDICARE REPLACEMENT [place] [address] MEDICARE REPLACEMENT [address] [employer] [place] [facility] MEDICARE REPLACEMENT [facility] MEDICARE REPLACEMENT [facility] MEDICARE REPLACEMENT [facility] MEDICARE REPLACEMENT Additional Source Comments The information contained in this document represents components of the legal health record. It is not the complete legal health record.[facility]
== END 2025-09-04 11:24 | disposition home or self-care (01) ==
LOC: HO.HKA 11:01
PROVIDERS: PCP Internal Medicine; Visit Provider Internal Medicine Hypertension Specialist
DX: I12.9 Hypertensive chronic kidney disease with stage 1 through stage 4 chronic kidney disease, or unspecified chronic kidney disease (principal); N18.9 Chronic kidney disease, unspecified; D63.1 Anemia in chronic kidney disease; N40.1 Benign prostatic hyperplasia with lower urinary tract symptoms; N13.8 Other obstructive and reflux uropathy
CPT/HCPCS: 99214

== ENCOUNTER → 2025-09-04 11:00 | Outpatient (BNVA) | payer OTHER, SELFPAY | PROVIDERS: PCP Internal Medicine; Visit Provider Internal Medicine Hypertension Specialist | DX: I12.9 Hypertensive chronic kidney disease with stage 1 through stage 4 chronic kidney disease, or unspecified chronic kidney disease (principal); N18.9 Chronic kidney disease, unspecified; D64.9 Anemia, unspecified; N40.1 Benign prostatic hyperplasia with lower urinary tract symptoms; N13.8 Other obstructive and reflux uropathy | CPT/HCPCS: 99212 ==

== ENCOUNTER → 2025-09-05 11:23 | Outpatient (BNVA) | payer OTHER, SELFPAY | PROVIDERS: PCP Internal Medicine; Visit Provider Internal Medicine Medical Oncology | DX: I48.0 Paroxysmal atrial fibrillation (principal); Z79.01 Long term (current) use of anticoagulants; Z51.81 Encounter for therapeutic drug level monitoring | CPT/HCPCS: 85610; 99211 ==

== ENCOUNTER 2025-09-26 10:57 | Outpatient (AMB) | payer OTHER, SELFPAY ==
[2025-09-26 11:02] LABS: Prothrombin Time Whole Bld POC 26.8 sec (11.1-13.5); ~PT, ~INR - Anti Coag Clinic 2.2 (0.9-1.1)
--- NOTE | 2025-09-26 11:23 | MHC.OFFVISCO ---
Intake Intake Visit Reasons: Anticoagulation Allergies No Known Allergies (No Known Allergies*) Allergy (Verified 09/05/25 11:28) Nursing Note PT.TO HAVE CAPSULE ENDOSCOPY TOMORROW. PT.HAS ALL PREP INSTRUCTIONS FOR PROCEDURE AT 8AM TOMORROW. PT.STATES THAT HE WAS INSTRUCTED TO HOLD WARFARIN, BUT HE APPARANTLY DIDN'T HOLD INR TODAY IS THERAPEUTIC AT 2.2. SPOKE WITH FLAKITA AT [facility] WHO CONFIRMS SCHEDULED PROCEDURE, AND THAT PT. SHOULD NOT HOLD WARFARIN. IT IS UNCLEAR IF PT.MAY HAVE BEEN GIVEN COLONOSCOPY INSTR.IN ERROR. REGARDLESS, PT. VERB.GOOD UNDERSTANDING OF TONTROY'S PREP AND CLEAR LIQUID STATUS. I HAVE ADVISED TO CONTINUE HIS PRESENT WARFARIN DOSING AND FOLLOW-UP IN 4 WEEKS. TO CALL [facility] OR [facility] IF ANY FURTHER CONCERNS ARISE. Anti-Coag Initial Assessment Social Hx Patient Tobacco Use Status: Former Tobacco user Tobacco use type: Cigarette alcohol intake: former Alcohol intake frequency: does not drink Coding Level of Care Code Est Patient Level 1 Diagnoses Current use of anticoagulant therapy Z79.01 Results AMB INR Fingerstick AMB INR Fingerstick 2.2 Last Edit by Neena Boyce RN on 09/26/25 11:03 Assessment & Plan Assessment & Plan (1) Current use of anticoagulant therapy: Comment: warfarin-Otto Margarette- need to confirm ok to stop 5 days prior to colonoscopy-unable to send note through expanse Patient aware this must be confirmed, there were no major barriers to understanding identified Code(s): Z79.01 - terminal carman (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
--- OUTSIDE RECORDS SUMMARY | 2025-09-26 21:37 | XMS_ITS | Encounter Summary ---
Author Organization [facility] Address [address] [place] [address] Phone Care Team Providers Care Casting Supervisor Name Role Phone Unavailable Primary Care Provider Unavailabl e Encounter Details Date Type Department Care Team (Late st Contact Info) Description 10/28/2018 Ancillary Orders [facility] [address] [facility] 3rd [address], [address] [place], [place] [phone] Felton Triana MD [address] [place] [id number] [email or web address] Social History Tobacco Use Types Packs/Day Years [...] It is not the complete legal health record.[facility]
--- OUTSIDE RECORDS SUMMARY | 2025-09-26 21:37 | XMS_ITS | Encounter Summary ---
Author Organization [employer] Address [address] [place] [address] [address] [place] [address] Care Team Providers Care Clothes Ironer Name Role Phone Pedro Pulliam MD Primary Care Provide r Niko Salamanca MD Unavailable [phone] Summer Wills MD Unavailable [phone] Encounter Details Date Type Department Care Team (Late st Contact Info) Description 05/31/2023 Orders Only [facility] MEDICINE [address] [place] [address] Shanita Pfeiffer LPN Social History Tobacco Use [...] on filedocumented in this encounter Care Teams Clothes Ironer Relationship Specialty Start Date End Date Pedro Pulliam MD [address] [place] [address] PCP - General Internal Medicine 09/10/14 Niko Salamanca MD [address] [place] [address] Nephrology 01/16/25 Summer Wills MD [address] [place] [address] Hematology and Oncology 06/27/25 documented as of this encounter
--- OUTSIDE RECORDS SUMMARY | 2025-09-26 21:37 | XMS_ITS | Clinical Summary ---
Author Organization [employer] Address [address] [facility] [address] [place] [address] Care Team Providers Care Bilingual Branch Manager Name Role Phone Pedro Pulliam MD Primary Care Provide r Niko Salamanca MD Unavailable [phone] Summer Wills MD Unavailable [phone] Allergies No known active allergies Medications [...] pt currently undergoing PT with good results. [facility] 09/23/2023 Assessment & Plan (07/17/2025 2:10 PM [...] Zoster: 02/26/2015 Stage 3b chronic kidney disease ([facility]/HCC) 201809/15/2023 Assessment & Plan (07/17/2025 1:53 PM [...] his vascular surgeon at [facility] (Dr Lind) whose recommendation was conservative treatment, he saw NO role for any type of surgical intervention. He recommended to repeat the scan in 1 year and continue to take Asa 81 mg po daily. Pt was last seen by his leadite man at [facility] 09/14/2023 recommended repeat US and ECHO and 6 month follow up He is on Aspirin started by their office Last Carotid US on record from 02/11/2023 Hypertension 04/21/2012 09/15/2023 Assessment & Plan (07/17/2025 1:54 PM EDT): Pt here for a f/u BP stable He is on a regimen of: Norvasc 5 mg daily, and lasix 20 mg daily prescribed by Work Environment Safety Inspector. Off Lisinopril 40 mg po daily (stopped by Board Certified Family Physician 04/01) I had lowered his Lasix due [...] and lasix 20 mg daily prescribed by Work Environment Safety Inspector. Pt is off Lisinopril 40 mg po daily (stopped by Board Certified Family Physician 04/01) I had recently lowered his Lasix [...] and lasix 20 mg daily prescribed by Work Environment Safety Inspector. I had recently lowered his Lasix due [...] and lasix 20 mg daily prescribed by Work Environment Safety Inspector. I had recently lowered his Lasix due [...] Am and 20 mg PM prescribed by Work Environment Safety Inspector. I had recently lowered his Lasix due [...] Am and 20 mg PM prescribed by Work Environment Safety Inspector. Pt developed some bilateral ankle edema due [...] Furosemide 20 mg po BID prescribed by Work Environment Safety Inspector. Pt developed some bilateral ankle edema due [...] Furosemide 20 mg po BID prescribed by Work Environment Safety Inspector. Pt developed some bilateral ankle edema due [...] Breast center referral at [facility] Assessment & Plan (02/01/2024 1:36 [...] Evaluated by Hematology last seen 05/02/2024 Dr Wlils. Pt has been receiveing PRBCs and IV [...] Encounters Date Type Department Care Team Description 09/26/2025 Orders Only GENERIC EXTERNAL DATA DEPARTMENT Provider, Generic External Data 09/05/2025 Orders Only GENERIC EXTERNAL DATA DEPARTMENT Provider, Generic External Data 08/31/2025 Orders Only GENERIC EXTERNAL DATA DEPARTMENT Provider, Generic External Data 08/31/2025 Telephone [facility] [address] [place] [address] Pedro Pulliam MD Medication Question 08/22/2025 Orders Only GENERIC EXTERNAL DATA DEPARTMENT Provider, Generic External Data 08/19/2025 Refill [facility] [address] [place] [address] Pedro Pulliam MD Vitamin D deficiency 08/15/2025 Orders Only GENERIC EXTERNAL DATA DEPARTMENT Provider, Generic External Data 08/10/2025 Orders Only GENERIC EXTERNAL DATA DEPARTMENT Provider, Generic External Data 08/08/2025 Telephone [facility] [address] [place] [phone] Pedro Pulliam MD Critical INR 08/08/2025 Orders Only GENERIC EXTERNAL DATA DEPARTMENT Provider, Generic External Data 07/25/2025 Orders Only GENERIC EXTERNAL DATA DEPARTMENT Provider, Generic External Data 07/17/2025 2:00 PM EDT Office Visit [facility] [address] [place] [phone] Pedro Pulliam MD Primary hypertension (Primary Dx); Stage 3b chronic kidney disease (CMS/HCC); Longstanding persistent atrial fibrillation (CMS/HCC); Primary open angle glaucoma (POAG) of both eyes, indeterminate stage; Gynecomastia; Bilateral leg edema; KARINA (obstructive sleep apnea); Sciatica of left side; Benign prostatic hyperplasia with urinary frequency; Preventative health care 07/17/2025 Travel 07/16/2025 Telephone [facility] [address] [place] [phone] Pedro Pulliam MD chart prep 07/11/2025 Orders Only GENERIC EXTERNAL DATA DEPARTMENT Provider, Generic External Data 07/04/2025 Orders Only GENERIC EXTERNAL DATA DEPARTMENT Provider, Generic External Data 06/27/2025 Orders Only GENERIC EXTERNAL DATA DEPARTMENT Provider, Generic External Data 06/26/2025 Results Follow-Up [facility] [address] [place] [phone] Avis Koenig MD CBC, Basic Metabolic Panel, [...] 2021 Mammogram 04/11/2025 04/11/2024, 04/11/2024 COVID-19 Vaccine (2024- season) 2025 11/11/2021, 03/05/2021, 02/05/2021 Influenza Vaccine (#1) 2025 , 09/23/2023, 09/29/2022, Additional history exists Alcohol/Substance Use Screening 10/17/2025 10/17/2024 Depression Screening 10/17/2025 10/17/2024, 10/17/20 24 SDOH Screening 01/02/2026 01/02/2025 Tobacco Screening 07/17/2026 07/17/2025 Lipid Panel 01/16/2030 01/16/2025, 1203/2023, 12/24/2021, Additional [...] Comments PROTHROMBIN TIME WHOLE BLD POC Routine 09/26/2025 11:00 AM EST ~PT, ~INR - ANTI COAG CLINIC Routine 09/26/2025 11:00 AM EST PROTHROMBIN TIME WHOLE BLD POC Routine 09/05/2025 11:31 AM EDT ~PT, ~INR - ANTI COAG CLINIC Routine 09/05/2025 11:31 AM EDT IMMUNOFIXATION, SERUM Routine 08/31/2025 9:26 AM EDT PROTEIN, TOTAL AND PROTEIN ELECTROPHORESIS Routine 08/31/2025 9:26 AM EDT URINE PROTEIN, [...] * (ABNORMAL) PROTHROMBIN TIME WHOLE BLD POC (09/26/2025 11:00 AM EST) Only the most recent of10 resultswithin the time period is included. Protime 26.8(H) 11.1 - 13.5 sec [facility] 09/26/2025 11:0 0 AM EST 09/26/2025 11:01 AM EST us Generic External Data Provider LAB BLOOD ORDERAB LES Final Result [facility] [address] [place] [phone] * (ABNORMAL) ~PT, ~INR - ANTI COAG CLINIC (09/26/2025 11:00 AM EST) Only the most recent of10 resultswithin the time period is included. Pathologist [facility] Prothrombin Time INR 2.2(H) 0.9 - 1.1 [facility] Comment:METER #: [id number] TERNATIONAL NORMALIZED RATIO (INR) REFERENCE RANGES Reference RangeFor patients not on anticoagulant therapy: 0.9 - 1.1INR ranges for oral anticoagulanttherapy:For prevention and treatment of venous thrombosis and pulmonary embolism: 2.0 - 3.0For acute myocardial infarction with aspirin therapy: 2.0 - 3.0For acute myocardial infarction without aspirin therapy: 3.0 - 4.0For patients with mechanical prosthetic heart valves: 2.5 - 3.5 09/26/2025 11:0 0 AM EST 09/26/2025 11:01 AM EST us Generic External Data Provider LAB BLOOD ORDERAB LES Final Result Performing Organization Address City/State/[facility] Co de Phone Number [facility] [address] [place] [phone] * (ABNORMAL) CBC auto differential (08/31/2025 9:26 AM EDT) Pathologist [facility] White Blood Count 2.1(L) 4.8 - 10.8 X10*3/uL [facility] Red Blood Count 2.78(L) 4.60 - 5.80 X10*6/uL [facility] Hemoglobin 8.3(L) 14.0 - 18.0 g/dl [facility] Hematocrit 26.4(L) 42.0 - 52.0 % [facility] Mean Corpuscular Volume 95.0 80.0 - 98.0 fL [facility] Mean Corpuscular Hemoglobin 29.9 27.0 - 33.0 pg [facility] Mean Corpuscular HGB Conc 31.4 31.0 - 36.0 g/dl [facility] Red Cell Distribution Width 15.9 11.0 - 16.0 % [facility] Platelet Count 76(L) 160 - 400 X10*3/uL [facility] Mean Platelet Volume 10.1 9.4 - 12.4 fL [facility] Neutrophils Percent Auto 58.8 45 - 73 % [facility] Imm Gran Pct Auto 0.5(H) 0.0 - 0.4 % [facility] Lymphocytes Percent Auto 21.3 20 - 40 % [facility] Monocytes Percent Auto 15.0(H) 2 - 11 % [facility] Eosinophils Percent Auto 3.9 0 - 4 % [facility] Basophils Percent Auto 0.5 0 - 2 % [facility] NRBC Pct Auto 0.0 0.0 - 0.2 /100WBC [facility] Neutrophils Absolute Auto 1.2(L) 2.0 - 8.3 x10*3/uL [facility] Imm Gran Abs Auto 0.01 0.00 - 0.03 X10*3/uL [facility] Lymphocytes Absolute Auto 0.4(L) 1.2 - 4.9 X10*3/uL [facility] Monocytes Absolute Auto 0.3 0.1 - 1.2 X10*3/uL [facility] Eosinophils Absolute Auto 0.1 0.0 - 0.4 X10*3/uL [facility] Basophils Absolute Auto 0.0 0.0 - 0.2 X10*3/uL [facility] NRBC Abs Auto 0.000 0.0 - 0.012 X10*3/uL [facility] 08/31/2025 9:26 AM EDT 08/31/2025 11:20 AM EDT us Generic External Data Provider LAB BLOOD ORDERAB LES Edited Result - Final [facility] [address] [place] [phone] * (ABNORMAL) Urine Protein, Total, Random without Creatinine (08/31/2025 9:26 AM EDT) Protein, Total, Random Urine 28(H) <12 mg/dL [facility] 08/31/2025 9:26 AM EDT 08/31/2025 12:23 PM EDT us Generic External Data Provider LAB URINE ORDERAB LES Final Result Performing Organization Address City/[facility]/ZIP Co de Phone Number [facility] [address] [place] [phone] * Creatinine, Random Urine (08/31/2025 9:26 AM EDT) Creatinine, Urine 98.99 mg/dL [facility] 08/31/2025 9:26 AM EDT 08/31/2025 12:23 PM EDT Generic External Data Provider LAB URINE ORDERAB LES Final Result Performing Organization Address [facility] de Phone Number [facility] [address] [place] [phone] * (ABNORMAL) Urinalysis Complete (08/31/2025 9:26 AM EDT) Color Urine Yellow [facility] Appearance Urine Clear [facility] PH 5.0 5.0 - 9.0 [facility] Glucose Urine UA Negative Negative mg/dL [facility] Urine Blood Trace(A) Negative [facility] Specific [place] - Urine 1.010 1.005 - 1.025 [facility] Urine Protein 30 (1+)(A) Neg-Trace mg/dL [facility] Urine Ketones Negative Negative mg/dL [facility] Nitrite Urine Negative Negative [facility] Leukocyte Esterase Urine Negative Negative [facility] RBC Urine 0-2 0 - 2 /HPF [facility] Urine WBC 0-5 0 - 5 /HPF [facility] Urine Squamous Epithelial Cell 0-2 0 - 2 /HPF [facility] Urine Bacteria None Seen None Seen [facility] Hyaline Casts, Urine 3-5 0 - 2 /LPF [facility] 08/31/2025 9:26 AM EDT 08/31/2025 12:23 PM EDT us Generic External Data Provider LAB URINE ORDERAB LES Final Result Performing Organization Address [facility] Co de Phone Number [facility] [address] [place] [phone] * (ABNORMAL) Immunofixation, Serum (08/31/2025 9:26 AM EDT) IMMUNOGLOBULIN G 1869(A) 600 - 1540 mg/dL [facility] IMMUNOGLOBULIN A 290 70 - 320 mg/dL [facility] Immunoglobulin M 61 50 - 300 mg/dL [facility] Comment:THIS TEST WAS PERFOR MED AT:[facility] [place] [phone] SEGURA MD Immunofixation Result SEE NOTE [facility] Comment:Faint IgG kappa mono clonal band present. 08/31/2025 9:26 AM EDT 08/31/2025 11:20 AM EDT us Generic External Data Provider LAB BLOOD ORDERAB LES Final Result Performing Organization Address [facility] Co de Phone Number [facility] [address] [place] [phone] * (ABNORMAL) Protein, Total and Protein??Electrophoresis (08/31/2025 9:26 AM EDT) Prot Elec - Total Protein 7.1 6.1 - 8.1 g/dL [facility] Prot Elec - Albumin 3.9 3.8 - 4.8 g/dL [facility] Prot Elec - Alpha1 0.3 0.2 - 0.3 g/dL [facility] Prot Elec - Alpha2 0.5 0.5 - 0.9 g/dL [facility] Prot Elec - Beta 1 0.4 0.4 - 0.6 g/dL [facility] Prot Elec - Beta 2 0.4 0.2 - 0.5 g/dL [facility] Prot Elec - Gamma 1.7 0.8 - 1.7 g/dL [facility] PES - Abn Protein Band 1 0.7(A) NONE DETECTED g/dL [facility] PES-Abn Protein Band 2 TNP [facility] PES-Abn Protein Band 3 TNP [facility] Prot Elec - Interpretation SEE NOTE [facility] Comment:Evaluation reveals a restricted band (M-spike)migrating in the gamma globulin region. If notalready requested, Immunofixation should beconsidered.THIS TEST WAS PERFORMED AT:[address] [place] [phone] SEGURA MD 08/31/2025 9:26 AM EDT 08/31/2025 11:20 AM EDT us Generic External Data Provider LAB BLOOD ORDERAB LES Final Result [facility] [address] [place] [address] [phone] * (ABNORMAL) Basic Metabolic Panel (08/31/2025 9:26 AM EDT) Only the most recent of2 resultswithin the time period is included. Sodium 139 135 - 145 mmol/L [facility] Potassium 3.9 3.3 - 5.1 mmol/L [facility] Chloride 113(H) 96 - 108 mmol/L [facility] Carbon Dioxide 21(L) 22 - 29 mmol/L [facility] Anion Gap 9(L) 12 - 20 [facility] Urea Nitrogen (BUN) 21(H) 9 - 16 mg/dL [facility] Creatinine, Serum 2.12(H) 0.5 - 1.4 mg/dL [facility] Estimated Glomerular Filt Rate 30 [facility] Comment:Chronic Kidney Disea se: Estimated GFR < 60 mL/min/1.60m6Bbsxda Kidney Disease: Estimated GFR < 15 mL/min/1.73m2 Glucose 85 60 - 115 mg/dL [facility] Calcium 8.2(L) 8.4 - 10.2 mg/dL [facility] 08/31/2025 9:26 AM EDT 08/31/2025 11:20 AM EDT us Generic External Data Provider LAB BLOOD ORDERAB LES Final Result [facility] [address] [place] [phone] [phone] * (ABNORMAL) PSA, Free and Total (06/26/2025 12:16 PM EDT) PSA, Total 5.6(A) < OR = 4.0 ng/mL [facility] PSA % Free 38 >25 % (calc) [facility] Comment: PSA(ng/mL) Free PSA(%) Estimated(x) Probability of Cancer(as%)0-2.5 (*) Approx. 12.6-4.0(1) 0-27(2) 24(3)4.1-10(4) 0-10 56 11-15 28 16-20 20 21-25 16 >or =26 8>10(+) N/A >50References:(1)Tc et al.:Urology 60: 469-474 (2001) (2)Tc et al.:J.Urol 168: 922-925 (2001) Free PSA(%) Sensitivity(%) Specificity(%) < or = 25 85 19 < or = 30 93 9 (3)Catalona et al.:MARLEEN 277: 0086-5313 (1996) (4)Catalona et al.:MARLEEN 279: 4453-7056 (1997)(x)These estimates vary with age, ethnicity, family [...] presence or absence ofdisease.THIS TEST WAS PERFORMED AT:[address] [place] [phone] SEGURA MD PSA, Free 2.1 ng/mL [facility] 06/26/2025 12:1 6 PM EDT 06/26/2025 12:16 PM EDT Generic External Data Provider LAB BLOOD ORDERAB LES Final Result Performing Organization Address City/[facility]/ZIP Co de Phone Number [facility] [address] [place] [phone] * (ABNORMAL) PSA, Total With Reflex to PSA, Free (06/26/2025 8:09 AM EDT) PSA,Total (Free>4and<10) 6.40(H) 0.00 - 4.00 ng/mL [facility] Comment:PSA methodology: Angel Gillespie i ChemiluminescentMicroparticle Immunoassay (CMIA) 06/26/2025 8:09 AM EDT 06/26/2025 10:58 AM EDT us Generic External Data Provider LAB BLOOD ORDERAB LES Final Result Performing Organization Address City/[facility]/ZIP Co de Phone Number [facility] [address] [place] [address] [phone] * (ABNORMAL) CBC (06/26/2025 8:09 AM EDT) White Blood Count 2.9(L) 4.8 - 10.8 X10*3/uL [facility] Red Blood Count 2.55(L) 4.60 - 5.80 X10*6/uL [facility] Hemoglobin 7.7(L) 14.0 - 18.0 g/dl [facility] Hematocrit 24.6(L) 42.0 - 52.0 % [facility] Mean Corpuscular Volume 96.5 80.0 - 98.0 fL [facility] Mean Corpuscular Hemoglobin 30.2 27.0 - 33.0 pg [facility] Mean Corpuscular HGB Conc 31.3 31.0 - 36.0 g/dl [facility] Red Cell Distribution Width 14.6 11.0 - 16.0 % [facility] Platelet Count 109(L) 160 - 400 X10*3/uL [facility] Mean Platelet Volume 10.8 9.4 - 12.4 fL [facility] NRBC Pct Auto 0.0 0.0 - 0.2 /100WBC [facility] NRBC Abs Auto 0.000 0.0 - 0.012 X10*3/uL [facility] 06/26/2025 8:09 AM EDT 06/26/2025 10:58 AM EDT us Generic External Data Provider LAB BLOOD ORDERAB LES Final Result [facility] [address] [place], [place] [phone] * (ABNORMAL) Lipid Panel, Standard (01/16/2025 9:13 AM EDT) Triglycerides 40 <150 mg/dL [facility] Comment:Desirable Triglyceri de: less than 150 mg/dLBorderline High Triglyceride 150-199 mg/dLHigh Triglyceride: 200-499 mg/dLVery High Triglyceride: greater than or equal to 5OO mg/dL Cholesterol 93 <200 mg/dL [facility] Comment:Desirable Cholestero l: less than 200 mg/dLBorderline High Cholesterol: 200-239 mg/dLHigh Cholesterol: greater than 239 mg/dL LDL Cholesterol Calculated 58 <100 mg/dL [facility] Comment:Desirable LDL: less [...] Julian MD LAB BLOOD ORDERABLES Final Result [facility] [address] [place] [phone] * BI Mammogram Diagnostic Tomosynthesis Bilateral (04/11/2024 3:15 PM EDT) Anatomical Region Laterality Modality Breast Bilateral Mammography 04/11/2024 3:15 PM EDT Narrative 04/11/2024 4:59 PM EDT [facility] [address] [place] [address] Mammography Report Signed Patient: Jamie Carpio MR#: [id number] : 1945 Acct:[id number] Age/Sex: 79 / M ADM Date: 04/11/24 Loc: HO.MAMMO Attending Dr: Pedro Webber MD Ordering Physician: Pedro Webber MD Resu lts: 2Benign Findings Date of Service: 04/11/24 Follow Up: 1 Year From Orig inal Mammogram Procedure(s): MM tomosynthesis diagnostic BI Accession Number(s): [id number] cc: Pedro Webber MD EXAMINATION: MM DIAGNOSTIC [...] Miguel A Bradley MD in OV> 04/11/24 7719 DD/ 1515 TD/TT: Painter Airbrush: Procedure Note Donotuseinterpreter, Image - 04/11/2024 [facility] [address] [place] [address] Dr. [place], [place] [address] Mammography Report Signed Patient: Rik Carpio#: [id number] : 6Acct:[id number] Age/Sex: 79 / MADM Date: 04/11/24 Loc: HO.MAMMO Attending Dr: Pedro Webber MD Ordering Physician: Pedro Webber MDResu lts: 2Benign Findings Date of Service: 04/11/24Follow Up: 1 Year From [facility] Mammogram Procedure(s): MM tomosynthesis diagnostic BI Accession Number(s): [id number] cc: Pedro Webber MD EXAMINATION: MM DIAGNOSTIC [...] in OV> 04/11/24 1654 DD/ 1515 TD/TT: Painter Airbrush: Pedro Julian MD IMG BI PROCEDURES Fin al Result * HEPATITIS C AB W/REFL TO HCV RNA, QN, PCR (12/24/2021 8:24 AM EST) HEPATITIS C ANTIBODY NON-REACT SIL NON-REACT SIL [facility] INDEX 0.01 <1.00 [facility] Comment: HCV antibody was non-reactive. There is no laboratory evidence of HCV infection. In most cases, no further action is required. However, if recent HCV exposure is suspected, a test for HCV RNA (test code 26098) is suggested. For additional information please refer to http://education.[employer]/faq/NSA27a6 (This link is being provided for informational/ educational purposes only.) 12/24/2021 8:24 AM EST Pedro Julian MD HISTORICAL/NON ORDERA BLE LABS Final Result [facility] [address] from Last 3 Months or Most Recently Relevant to Health Maintenance Insurance [employer] [id number] * Guarantor: Santos Carpioingo Account Type Relation to Patient Date of Phone Billing Address Personal/Family Self [address] [place] Care Teams Bilingual Branch Manager Relationship Specialty Start Date End Date Pedro Pulliam MD [address] [place] [address] PCP - General Internal Medicine 09/10/14 Niko Salamanca MD [address] [place] [phone] Nephrology 01/16/25 Summer Wills MD [address] [place] [phone] Hematology and Oncology 06/27/25
--- OUTSIDE RECORDS SUMMARY | 2025-09-26 21:37 | XMS_ITS | Patient Health Record ---
Author Organization [facility] Address [address] [place] [address] Care Team Providers Care Technical Assistant Name Role Phone Gwendolyn Julian MD, Pedro Primary Care Provide r Unavailable Favian Hardin Jr Unavailable Reason For Referral No Information Plan Of Treatment No Information Insurance Providers Payer Name Payer Address Payer Phone Subscriber Number Group Number Insured Name Patient Relationship to Insured Coverage Start Date Coverage End Date MEDICARE OF [facility] [address] [facility] [place] [id number] LILY RINCON Self - patient is the insured
--- OUTSIDE RECORDS SUMMARY | 2025-09-26 21:37 | XMS_ITS | Encounter Summary ---
Author Organization [employer] Address [address] [facility] 7t [place] [address] Care Team Providers Care Anatomical Embalmer Name Role Phone Pedro Pulliam MD Primary Care Provide r Niko Salamanca MD Unavailable [phone] Summer Wills MD Unavailable [phone] Reason for Visit * Reason Comments Med Refill Encounter Details Date Type Department Care Team (Late st Contact Info) Description 08/19/2025 Refill [facility] MEDICINE [address] [place], [place] [phone] Pedro Pulliam MD [address] [place], [place] [phone] Vitamin D deficiency Social History Tobacco Use [...] documented as of this encounter Care Teams Anatomical Embalmer Relationship Specialty Start Date End Date Pedro Pulliam MD [address] [place] [address] PCP - General Internal Medicine 09/10/14 Niko Salamanca MD [address] [place] [address] Nephrology 01/16/25 Summer Wills MD [address] [place] [address] Hematology and Oncology 06/27/25 documented as of this encounter
--- OUTSIDE RECORDS SUMMARY | 2025-09-26 21:37 | XMS_ITS | Patient Health Record ---
Author Organization - [facility] Address [address] [place] [address] Care Team Providers Care Early Head Start Teacher Name Role Phone Vivian Aki Lewiss Unavailable [phone] NORY BALES Unavailable [phone] ISAAC RICHMOND Unavailable [phone] Allergies No Known Allergies Reason For Referral No Information Medications Medication SIG (Take, Route, Frequency, Duration) Notes Start Date End Date Status Lisinopril 40 MG 1 tablet Orally Once a day HTN Active Travoprost (YANELI Free) 0.004 % 1 drop into affected eye in the evening bilaterally Ophthalmic Once a day Glaucoma Active Dorzolamide HCl-Timolol Mal 2-0.5 % 1 drop into affected eye bilaterally Ophthalmic Twice a day Glaucoma Active Vitamin D3 25 MCG TAKE 1 TABLET BY MOUTH ONCE DAILY Oral; Duration: 90 days vitamin supplement Active Aspirin 81 MG 1 tablet Orally as needed preventative Not-Taking Warfarin Sodium 5 MG 1 tablet Orally Once a day A fib Active Iron 325 (65 Fe) MG 1 tablet Orally Daily Anemia Active Furosemide 40 MG 1 tablet Orally Once a day HTN Active Atorvastatin Calcium 80 MG 1 tablet Orally Once a day at bedtime HLD Active amLODIPine Besylate 5 MG 1 tablet Orally Once a day HTN Active Social History Tobacco Use: Social History Observation Description Date Details (start date - stop date) Former Smoker NA - NA Tobacco Control (Standard) Question Answer Notes Tobacco use: Former smoker AUDIT-C (Standard) Question Answer Notes Did you have a drink containing alcohol in the p ast year? No Points 0 Interpretation Negative Problems Problem Type SNOMED Code ICD Code Onset Dates Problem Status W/U Status Risk Notes Problem Essential hypertension (16072483) Essential hypertension (I10) Active confirmed Problem Hyperlipidaemia (73167815) Hyperlipidemia, unspecified hyperlipidemia type (E78.5) Active confirmed Problem Iron deficiency anemia (30632227) Iron deficiency anemia, unspecified iron deficiency anemia type (D50.9) Active confirmed Problem Walking disability (802568566) Ambulatory dysfunction (R26.2) Active confirmed Problem Glaucoma (16302106) Glaucoma of both eyes, unspecified glaucoma type (H40.9) Active confirmed Problem Nondependent alcohol abuse in remission (954500161) History of alcohol abuse (F10.11) Active confirmed Problem Atrial fibrillation (92759690) Paroxysmal A-fib (I48.0) Active confirmed Problem Obstructive sleep apnea syndrome (03358363) KARINA on CPAP (G47.33) Active confirmed Vital Signs Heart Rate 41 /min 11/17/2024 Height-cm 175.26 cm 11/17/2024 Blood pressure diastolic 53 mm Hg 11/17/2024 Weight-kg 86.18 kg 11/17/2024 Height 69 in 11/17/2024 Blood pressure systolic 120 mm Hg 11/17/2024 Weight 190 lbs 11/17/2024 BMI 28.06 kg/m2 11/17/2024 Encounters Encounter Location Date Provider Diagnosis - [facility] [address] [address] 11/17/2024 NORY BALES Glaucoma of both eye s, unspecified glaucoma type H40.9 ; Paroxysmal A-fib I48.0 ; Ambulatory dysfunction R26.2 ; Essential hypertension I10 ; Iron deficiency anemia, unspecified iron deficiency anemia type D50.9 ; KARINA on CPAP G47.33 ; Hyperlipidemia, unspecified hyperlipidemia type E78.5 and History of alcohol abuse F10.11 - [facility] [address] [facility] [address] [place] [address] 11/24/2024 NORY BALES [facility] [address] [facility] [address] [place] [address] 12/18/2024 ISAAC RICHMOND [facility] [address] [facility] [address] [place] [address] 01/12/2025 NORY BALES [facility] [address] [place] [address] 02/20/2025 NORY BALES [place] - [facility] [address] [facility] [address] [place] [address] 03/27/2025 NORY BALES [place] [facility] [address] [facility] [address] [place] [address] 04/16/2025 NORY BALES [place] [facility] [address] [facility] [address] [place] [address] 05/18/2025 NORY BALES [place] [facility] [address] [facility] [address] [place] [address] 07/02/2025 NORY BALES [place] [facility] [address] [facility] [address] [place] [address] 07/25/2025 NORY BALES [place] [facility] [address] [address] 11/28/2024 NORY Gregorio [place] - [facility] [address] [facility] [address] [place] [address] 12/19/2024 ISAAC Gregorio [place] - [facility] [address] [place] [address] 01/15/2025 NORY Gregorio [place] - [facility] [address] [address] 01/16/2025 NORY BALES [place] [facility] [address] [address] 02/08/2025 NORY Gregorio [place] - [facility] [address] [facility] [address] [place] [address] 02/20/2025 NORY Gregorio [place] - [facility] [address] [facility] [address] [place] [address] 03/29/2025 NORY HERNANDEZ - [facility] [address] [place] [address] 04/03/2025 NORY BALES Assessments Encounter Date Diagnosis (ICD Code) Assessment Notes Treatment Notes Treatment Clinical Notes Section Notes 11/17/2024 Glaucoma of both eyes, unspecified glaucoma type (ICD-10 - H40.9) Controlled Continue current treatment plan. Follow up with PCP/Specialty as indicated. Member prognosis related to the multiple diagnoses fair. 11/17/2024 Paroxysmal A-fib (ICD-10 - I48.0) Controlled Continue current treatment plan. Follow up with PCP/Specialty as indicated. HR 41 today. Member states he is asymptomatic and Cardiology is aware. Currently on coumadin with INR checks monthly. Member reported taking aspirin on occasion. I encouraged the member to hold the aspirin and to discuss this with the Streetcar Repairer Helper as the combination of aspirin and coumadin can increase the member's risk of bleeding. Member prognosis related to the multiple diagnoses fair. 11/17/2024 Ambulatory dysfunction (ICD-10 - R26.2) Controlled Continue current treatment plan. Follow up with PCP/Specialty as indicated. Encouraged to continue using DME cane or walker to ambulate safely. Reviewed fall risks. Member prognosis related to the multiple diagnoses fair. 11/17/2024 Essential hypertension (ICD-10 - I10) Controlled Continue current treatment plan. Follow up with PCP/Specialty as indicated. Member prognosis related to the multiple diagnoses fair. 11/17/2024 Iron deficiency anemia, unspecified iron deficiency anemia type (ICD-10 - D50.9) Controlled Continue current treatment plan. Follow up with PCP/Specialty as indicated. Member prognosis related to the multiple diagnoses fair. 11/17/2024 KARINA on CPAP (ICD-10 - G47.33) Controlled Continue current treatment plan. Follow up with PCP/Specialty as indicated. Member prognosis related to the multiple diagnoses fair. 11/17/2024 Hyperlipidemia, unspecified hyperlipidemia type (ICD-10 - E78.5) Controlled Continue current treatment plan. Follow up with PCP/Specialty as indicated. Member prognosis related to the multiple diagnoses fair. 11/17/2024 History of alcohol abuse (ICD-10 - F10.11) Resolved. No longer drinks alcohol. Sober for 13 years. Member prognosis related to the multiple diagnoses fair. 12/18/2024 Member/Ca regiver contacted for health assistant boys track coach visit. Reviewed the call purpose. Confirmed member name and birthdate. Explanation of health coaching services: Health coaching assists people in making improvements in their health that reflect their values and priorities. A health assistant boys track coach works with you to take small but impactful steps to improve your health, tapping into your motivation, strengths, and skills. Health coaches provide accountability and support and celebrate your successes along the way. Health coaching can improve the quality of your life and make reaching your health goals easier and more enjoyable. CCM program and what to expect next were reviewed and verbalization of understanding obtained. 01/12/2025 Member co ntacted for CCM Monthly. Health assistant boys track coach confirmed member name and birthdate. CCM program touchpoint briefly described. Member has no changes in condition or concerns to report. Member had no acute events. Discussion on eating habits and fall prevention. Member would like to focus on using the cane for best fall prevention practice. Member has no upcoming appointments. CCM next program touchpoint briefly described regarding light physical activity. Member voiced understanding for the call and the support. 31/05 line reinforced. 03/27/2025 Member contacted for CCM Monthly. Health assistant boys track coach confirmed member name and birthdate. CCM program touchpoint briefly described. Member has no changes in condition or concerns to report. Member had no acute events. Discussion on Medication and Appointment Compliance and Healthy Eating. Member reported he is having ear pain, health assistant boys track coach offered triage but member denied at this time. Member has PCP appointment tomorrow, recommended for member to request earlier visit if possible. Member will be following up with PCP regarding CPAP machine. Member has no known upcoming appointments. [facility] next program touchpoint briefly described. Member voiced understanding for the call and the support. 31/05 line reinforced. 04/16/2025 Member was contacted for a health assistant boys track coach visit. Reviewed the purpose of the call. Confirmed member by name and . The clinical program and what to expect next were reviewed and verbalization of understanding was obtained. Member was pleasant and polite. He was in his home state at the time of the call. Reviewed health coaching. No health goals at this time. The member will see his PCP tomorrow. He will inform them of his foot, thigh, and hip pain. This has been occurring for two months. He has not tried creams or hot/cold compresses. No other concerns at this time. Discussion on effective BP management and fall prevention. He enjoys reading his bible and watching TV. The member will go on Wednesday to a senior center or day center to see if he likes it. Reviewed transportation services with [facility]. He takes himself to his appointments. He considers all areas of his health the most important. He enjoyed walking in a park recently but his foot pain limits his movement. He has a book for bed exercises and, as a result, declined a bed exercise resource. Explained inSTED. He stated he called [facility] for an earache (resolved, no acute needs) but was told medication couldn't be sent. No record of this. The health assistant boys track coach stated it was not [facility] since there are records of member calls. He stated this was a month ago. He was able to go to a clinic and had his ear cleaned out and received medication. The health assistant boys track coach summarized the call. Details below. Clinical support line reinforced for any and all acute needs. 05/18/2025 - Educated on 2 objectives based on the INSULATION HOSEMAN/RN Care Plan - Caregiver/Member voiced understanding for the call and the support. 31/05 line reinforced. 07/02/2025 - Educated on 2 objectives based on the INSULATION HOSEMAN/RN Care Plan Health assistant boys track coach discussed with member about nutrition, physical activity and blood pressure monitoring. Member reported eating food low in sodium. The member stated sometimes walking but not being able to do it recently, due to swollen thighs. Health assistant boys track coach suggested the member to communicating with the clinical team about the swollen thighs, but the member declined stating he had struggled with that for years. Health assistant boys track coach inquired about blood pressure monitoring. The member stated monitoring blood pressure every day. - Member voiced understanding for the call and the support. 31/05 line reinforced. 07/25/2025 - Educated on 2 objectives based on the INSULATION HOSEMAN/RN Care Plan - Caregiver/Member voiced understanding for the call and the support. 31/05 line reinforced. 02/20/2025 S: RN spoke with the member via [employer] for a care plan update. The member confirmed name, date of , and state. B: 79 year old male with past medical history of hypertension and atrial fibrillation. The member denies having any recent falls, ED visits, or hospitalizations. The member uses a cane when ambulating. The member lives on his own and maintains his PERS device with him. The member receives 13 hours of homecare services and they assist the member with completing daily activities. The member prepares his own meals and manages his own medications. The member had a visit with his PCP last month and had no changes to his medications or interventions. The member stated that he stopped using his CPAP overnight and has a visit with a specialist on where he will notify them. The member stated that he will call himself to schedule a visit with his operating room assistant, and the member refused RNs assistance. A: The member denies having chest pain, shortness of breath, headaches or dizziness. The member stated that he has not smoked or drank alcohol in years. The member stated that he has not had vertigo for months. Hypertension, hyperlipidemia, and atrial fibrillation: The member checks his blood pressure daily and this morning his reading was 99/41 and heart rate 45. The member stated that his heart rate baseline has always been low and his baseline with his blood pressure have always been soft. The member denies having hypertension or hypotension symptoms, and denies having active AFib symptoms. The member avoids salt with his meals and denies having swelling in his lower or upper extremities. The member stated that his latest blood work, his lipid panel results were high. R: RN encouraged the member to continue to follow a low cholesterol and low sodium diet. Educated the member on risks of having high cholesterol and healthy foods the member should include in their diet. Encouraged the member to continue to check his blood pressures daily. Educated the member on risks of uncontrolled hypertension, hypertension and hypotension symptoms, and hypotension interventions. Educated on active AFib symptoms and anticoagulation therapy. Reinforced fall safety interventions and DME use. RN reinforced Catina's 31/05 clinical line for any questions or concerns. Plan Of Treatment No Information Insurance Providers Payer Name Payer Address Payer Phone Subscriber Number Group Number Insured Name Patient Relationship to Insured Coverage Start Date Coverage End Date Helen Devos [facility] [address] [address] [place] [phone] [id number] Jamie Shah Self - patient is the insured 8 Medicare of [place] [address] [place] [phone] [id number] Jamie Shah Self - patient is the insured Medical (General) History Medical History History ICD Code Glaucoma of both eyes, unspecified glauc keshia type H40.9 Ambulatory dysfunction R26.2 Essential hypertension I10 Iron deficiency anemia, unspecified iron deficiency anemia type D50.9 Paroxysmal A-fib I48.0 Swelling of lower extremity M79.89 KARINA on CPAP G47.33 Hyperlipidemia, unspecified hyperlipidem ia type E78.5 History of alcohol abuse F10.11 Surgical History Surgery Date(Month/Year) Bilateral cataract extraction
--- OUTSIDE RECORDS SUMMARY | 2025-09-26 21:37 | XMS_ITS | Encounter Summary ---
Author Organization [employer] Address [address] [facility] 7t [place] [address] Care Team Providers Care Mobile Development Manager Name Role Phone Pedro Pulliam MD Primary Care Provide r Niko Salamanca MD Unavailable [phone] Summer Wills MD Unavailable [phone] Reason for Visit * Reason Onset Date Comments OV 03/1602/17/2024 Encounter Details Date Type Department Care Team (Late st Contact Info) Description 02/17/2024 Telephone [facility] MEDICINE [address] [place], [place] [phone] Pedro Pulliam MD [address] [place], [place] [phone] OV 03/16 Social History Tobacco Use Types [...] any questions you can contact pt at [phone]. documented in this encounter Plan of Treatment Not on file documented as of this encounter Visit Diagnoses Not on filedocumented in this encounter Additional Health Concerns Assessment Noted Time PHQ-9 Depression Total Score: 1 09/23/20 23 1:21 PM EST documented as of this encounter Care Teams Mobile Development Manager Relationship Specialty Start Date End Date Pedro Pulliam MD [address] [place] [address] PCP - General Internal Medicine 09/10/14 Niko Salamanca MD [address] [place] [address] Nephrology 01/16/25 Summer Wills MD [address] [place] [address] Hematology and Oncology 06/27/25 documented as of this encounter
--- OUTSIDE RECORDS SUMMARY | 2025-09-26 21:37 | XMS_ITS | Encounter Summary ---
Author Organization [employer] Address [address] [facility] 7t [place] [address] Care Team Providers Care Automatic Spinning Lathe Setter Name Role Phone Pedro Pulliam MD Primary Care Provide r Niko Salamanca MD Unavailable [phone] Summer Wills MD Unavailable [phone] Encounter Details Date Type Department Care Team (Late st Contact Info) Description 01/06/2023 Orders Only [facility] MED & PEDS [address] [place] [address] Shira Castano LPN Social History Tobacco Use [...] on filedocumented in this encounter Care Teams Automatic Spinning Lathe Setter Relationship Specialty Start Date End Date Pedro Pulliam MD [address] [place] [address] PCP - General Internal Medicine 09/10/14 Niko Salamanca MD [address] [place] [address] Nephrology 01/16/25 Summer Wills MD [address] [place] [address] Hematology and Oncology 06/27/25 documented as of this encounter
--- OUTSIDE RECORDS SUMMARY | 2025-09-26 21:37 | XMS_ITS | Encounter Summary ---
Author Organization [facility] Address [address] [place] [address] Phone Care Team Providers Care Telescope Repairer Name Role Phone Unavailable Primary Care Provider Unavailabl e Encounter Details Date Type Department Care Team (Late st Contact Info) Description 10/28/2018 Ancillary Orders [facility] [address] [place] [address] [place] [address] Felton Triana MD [address] [place] [id number] [email or web address] Bradycardia Social History Tobacco Use Types [...] It is not the complete legal health record.[facility]
--- OUTSIDE RECORDS SUMMARY | 2025-09-26 21:37 | XMS_ITS | Encounter Summary ---
Author Organization [employer] Address [address] [facility] 7t [place] [address] Care Team Providers Care Business Management Intern Name Role Phone Pedro Pulliam MD Primary Care Provide r Niko Salamanca MD Unavailable [phone] Summer Wills MD Unavailable [phone] Reason for Visit * Reason Onset Date Comments Med Refill 2023 Encounter Details Date Type Department Care Team (Late st Contact Info) Description 2023 Refill [facility] [address] [place], [place] [phone] Pedro Pulliam MD [address] [place], [place] [phone] Atrial fibrillation, unspecified type (CMS/HCC) (Primary Dx) [...] Primary documented in this encounter Care Teams Business Management Intern Relationship Specialty Start Date End Date Pedro Pulliam MD 230 [place] [address] PCP - General Internal Medicine 09/10/14 Niko Salamanca MD [address] [place] [address] Nephrology 01/16/25 Summer Wills MD [address] [place] [address] Hematology and Oncology 06/27/25 documented as of this encounter
--- OUTSIDE RECORDS SUMMARY | 2025-09-26 21:37 | XMS_ITS | Clinical Summary ---
Author Organization [facility] Address [address] [place] [address] Care Team Providers Care Executive Producer Promos Name Role Phone Unavailable Primary Care Provider [...] Depression Screening 11/08/2024 COVID-19 Vaccine (1 - 2024-2 6 season) 2025 Influenza Vaccine (#1) 2025 HIB [...] Documents on File Type Date Recorded Patient Books Salesperson Expl anation Health Care Decision (hx) 01/10/2020 AD PHILLIP DIRECTIVE
--- OUTSIDE RECORDS SUMMARY | 2025-09-26 21:37 | XMS_ITS | Encounter Summary ---
Author Organization [employer] Address [address] [place] [address] 7t [place] [address] Care Team Providers Care Director Multimedia Name Role Phone Pedro Pulliam MD Primary Care Provide r Niko Salamanca MD Unavailable [phone] Summer Wills MD Unavailable [phone] Encounter Details Date Type Department Care Team (Late st Contact Info) Description 02/25/2023 Orders Only [facility] MEDICINE [address] [place] [address] Shanita Pfeiffer LPN Social History Tobacco Use [...] on filedocumented in this encounter Care Teams Director Multimedia Relationship Specialty Start Date End Date Pedro Pulliam MD [address] [place] [address] PCP - General Internal Medicine 09/10/14 Niko Salamanca MD [address] [place] [address] Nephrology 01/16/25 Summer Wills MD [address] [place] [address] Hematology and Oncology 06/27/25 documented as of this encounter
--- OUTSIDE RECORDS SUMMARY | 2025-09-26 21:37 | XMS_ITS | Encounter Summary ---
Author Organization [employer] Address [address] 7t [place] [address] Care Team Providers Care Freight Brake Operator Name Role Phone Pedro Pulliam MD Primary Care Provide r Niko Salamanca MD Unavailable Summer Wills MD Unavailable [phone] Encounter Details Date Type Department Care Team (Late st Contact Info) Description 09/26/2025 Orders Only GENERIC EXTERNAL DATA [...] COAG CLINIC Routine 09/26/2025 11:00 AM EST documented in this encounter Results * (ABNORMAL) PROTHROMBIN TIME WHOLE BLD POC (09/26/2025 11:00 AM EST) Protime 26.8(H) 11.1 - 13.5 sec [facility] 09/26/2025 11:0 0 AM EST 09/26/2025 11:01 AM EST us Generic External Data Provider LAB BLOOD ORDERAB LES Final Result Performing Organization Address City/State/[facility] Co de Phone Number [facility] [address] [place] [phone] * (ABNORMAL) ~PT, ~INR - ANTI COAG CLINIC (09/26/2025 11:00 AM EST) Prothrombin Time INR 2.2(H) 0.9 - 1.1 [facility] Comment:METER #: [id number] TERNATIONAL NORMALIZED RATIO (INR) REFERENCE RANGES Reference [...] Provider LAB BLOOD ORDERAB LES Final Result [facility] [address] [place] [address] [phone] documented in this encounter Visit Diagnoses Not on filedocumented in this encounter Additional Health Concerns Assessment Noted Time PHQ-9 Depression Total Score: 0 10/17/20 24 1:50 PM EST documented as of this encounter Care Teams Freight Brake Operator Relationship Specialty Start Date End Date Pedro Pulliam MD [address] [place] [address] PCP - General Internal Medicine 09/10/14 Niko Salamanca MD [address] [place] [address] Nephrology 01/16/25 Summer Wills MD [address] [place] [address] Hematology and Oncology 06/27/25 documented as of this encounter
--- OUTSIDE RECORDS SUMMARY | 2025-09-26 21:37 | XMS_ITS | Encounter Summary ---
Author Organization [employer] Address [address] [facility] 7t [place] [address] Care Team Providers Care Test Driller Name Role Phone Pedro Pulliam MD Primary Care Provide r Niko Salamanca MD Unavailable [phone] Summer Wills MD Unavailable [phone] Reason for Visit * Reason Comments Med Refill Encounter Details Date Type Department Care Team (Late st Contact Info) Description 06/02/2024 Refill [facility] [address] [place], [place] [phone] Pedro Pulliam MD [address] [place], [place] [phone] Primary hypertension; Stage 3 chronic kidney disease, [...] stage 3a or 3b CKD (CMS/HCC) ([facility]) Nonrheumatic tricuspid valve regurgitation documented in this encounter Additional Health Concerns Assessment Noted Time PHQ-9 Depression Total Score: 1 09/23/20 23 1:21 PM EST documented as of this encounter Care Teams Test Driller Relationship Specialty Start Date End Date Pedro Pulliam MD [address] [place] [address] PCP - General Internal Medicine 09/10/14 Niko Salamanca MD [address] [place] [address] Nephrology 01/16/25 Summer Wills MD [address] [place] [address] Hematology and Oncology 06/27/25 documented as of this encounter
--- OUTSIDE RECORDS SUMMARY | 2025-09-26 21:37 | XMS_ITS | Clinical Summary ---
Author Organization [facility] Address [address] [address] Phone Care Team Providers Care Autotransfusionist Name Role Phone Unavailable Primary Care Provider [...] file Medical Devices Not on file Insurance [facility] [facility] MEDICARE REPLACEMENT ANTOINE WANG [id number] [place] [address] MEDICARE REPLACEMENT [facility] MEDICARE REPLACEMENT [facility] MEDICARE REPLACEMENT [place] [address] MEDICARE REPLACEMENT [address] [place] [facility] MEDICARE REPLACEMENT [facility] MEDICARE REPLACEMENT [facility] MEDICARE REPLACEMENT [facility] MEDICARE REPLACEMENT Additional Source Comments The information contained in this document represents components of the legal health record. It is not the complete legal health record.[facility]
--- OUTSIDE RECORDS SUMMARY | 2025-09-26 21:37 | XMS_ITS | Encounter Summary ---
Author Organization [employer] Address [address] [facility] 7t [place] [address] Care Team Providers Care Development Mechanic Name Role Phone Pedro Pulliam MD Primary Care Provide r Niko Salamanca MD Unavailable [phone] Summer Wills MD Unavailable [phone] Encounter Details Date Type Department Care Team (Late st Contact Info) Description 02/01/20[address] Orders [address] [facility] MED & PEDS [address] [place] [address] Shira Castano LPN Social History Tobacco Use [...] filedocumented in this encounter Care Teams Development Mechanic Relationship Specialty Start Date End Date Pedro Pulliam MD [address] [place] [address] PCP - General Internal Medicine 09/10/14 Niko Salamanca MD [address] [place] [address] Nephrology 01/16/25 Summer Wills MD [address] [place] [address] Hematology and Oncology 06/27/25 documented as of this encounter
--- OUTSIDE RECORDS SUMMARY | 2025-09-26 21:37 | XMS_ITS | Clinical Summary ---
Author Organization [facility] Address [address] [address] Care Team Providers Care Bilingual Legal Assistant Name Role Phone Pedro Snow MD Primary [...] age to complete this topic Care Teams Bilingual Legal Assistant Relationship Specialty Start Date End Date Pedro Snow MD PCP - General 11/18/20
== END 2025-09-26 11:33 | disposition home or self-care (01) ==
LOC: HO.ACS 10:57
PROVIDERS: PCP Internal Medicine; Visit Provider Internal Medicine Medical Oncology
DX: Z79.01 Long term (current) use of anticoagulants (principal)

== ENCOUNTER → 2025-09-26 10:57 | Outpatient (BNVA) | payer OTHER, SELFPAY | PROVIDERS: PCP Internal Medicine; Visit Provider Internal Medicine Medical Oncology | DX: I48.0 Paroxysmal atrial fibrillation (principal); Z51.81 Encounter for therapeutic drug level monitoring; Z79.01 Long term (current) use of anticoagulants | CPT/HCPCS: 85610; 99211 ==

== ENCOUNTER 2025-09-27 08:04 | Outpatient (AMB) | payer OTHER, SELFPAY ==
--- NOTE | 2025-09-27 09:10 | AM.OFFVISNUR ---
Intake Visit Reasons: CAPSULE Intake Note: Patient came in preppered for capsule. Aware that he has to come back with equipment for 4pm. daughter was there and interpreted for him. Information Technology Technician Required: Yes Allergies No Known Allergies (No Known Allergies*) Allergy (Verified 09/05/25 11:28) Assessment & Plan Assessment & Plan (1) Anemia: Code(s): D64.9 - Anemia, unspecified Category: Medical Coding Level of Care Code Est Pt Level 1 (90314) Diagnoses Anemia D64.9
== END 2025-09-27 09:13 | disposition home or self-care (01) ==
LOC: HO.HGI 08:05
PROVIDERS: PCP Internal Medicine; Visit Provider Internal Medicine Gastroenterology
DX: D64.9 Anemia, unspecified (principal)

== ENCOUNTER → 2025-09-27 08:04 | Outpatient (BNVA) | payer OTHER, SELFPAY | PROVIDERS: PCP Internal Medicine; Visit Provider Internal Medicine Gastroenterology | DX: K20.90 Esophagitis, unspecified without bleeding (principal); K29.60 Other gastritis without bleeding; D64.9 Anemia, unspecified; Z87.891 Personal history of nicotine dependence | CPT/HCPCS: 91110; 99211 ==

== ENCOUNTER 2025-10-24 11:03 | Outpatient (AMB) | payer OTHER, SELFPAY ==
--- NOTE | 2025-10-24 11:31 | MHC.OFFVISCO ---
Intake Intake Visit Reasons: Anticoagulation Allergies No Known Allergies (No Known Allergies*) Allergy (Verified 10/24/25 11:24) Medication List - Last Reconciled 10/24/25 by Joyce Garcia RN amlodipine 5 mg PO DAILY atorvastatin 80 mg PO BEDTIME carbamide peroxide 6.5% (Ear Wax Removal Drops) 5 drps otic (ear) left BID cholecalciferol (vitamin D3) 25 mcg PO DAILY dorzolamide-timolol 22.3-6.8 mg/mL 22.3 drps ophthalmic (eye) BID ferrous sulfate (FeroSul) 1 tab PO DAILY furosemide 40 mg PO DAILY iron sucrose (Venofer) 200 mg IV Q3D octreotide acetate (Mycapssa) 20 mg PO DAILY Held on 11/20/22. Instructions: rejected by insurance peg-electrolyte soln 420 gram 240 mL PO Q10M terazosin 5 mg PO BEDTIME 90 days travoprost 0.004% 1 drp ophthalmic (eye) BEDTIME warfarin 5 mg See Protocol PO DAILY Nursing Note INR 1.8-?? out of therapeutic range 2-3 Medications and supplements reviewed Patient status: pt denies missed doses Medications or supplements: no changes Diet: same Denies any signs and symptoms of bleeding or clotting or unusual bruising Bleeding, bruising, clotting discussed Nutritional guidance given: no greens for 2 day, eat reds to raise Dose: take 5mg today and tomm then cont prev 5mg x 1. 2.5mg x 6 F/U INR Date : 2 weeks?? Patient verbalizing understanding of instructions given. Anti-Coag Initial Assessment Social Hx Patient Tobacco Use Status: Former Tobacco user Tobacco use type: Cigarette alcohol intake: former Alcohol intake frequency: does not drink Coding Level of Care Code Est Patient Level 1 Diagnoses Current use of anticoagulant therapy Z79.01 Results AMB INR Fingerstick AMB INR Fingerstick 1.8 Last Edit by Jocye Garcia RN on 10/24/25 11:34 interface delay Assessment & Plan Assessment & Plan (1) Current use of anticoagulant therapy: Comment: warfarin-Fabiolaun Margarette- need to confirm ok to stop 5 days prior to colonoscopy-unable to send note through expanse Patient aware this must be confirmed, there were no major barriers to understanding identified 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
[2025-10-24 12:30] LABS: Prothrombin Time Whole Bld POC 21.6 sec (11.1-13.5); ~PT, ~INR - Anti Coag Clinic 1.8 (0.9-1.1)
--- OUTSIDE RECORDS SUMMARY | 2025-10-24 14:32 | XMS_ITS | Patient Health Record ---
Author Organization [facility] Address [address] [place] [address] Care Team Providers Care Acquisitions Analyst Name Role Phone Gwendolyn Julian MD, Pedro Primary Care Provide r Unavailable Favian Hardin Jr Unavailable [phone] Reason For Referral No Information Plan Of Treatment No Information Insurance Providers Payer Name Payer Address Payer Phone Subscriber Number Group Number Insured Name Patient Relationship to Insured Coverage Start Date Coverage End Date MEDICARE OF [facility] [address] [facility] [place] [id number] [phone] [id number] LILY RINCON Self - patient is the insured
--- OUTSIDE RECORDS SUMMARY | 2025-10-24 14:32 | XMS_ITS | Encounter Summary ---
Author Organization [facility] Address [address] [place] [address] Phone Care Team Providers Care Decorative Engraver Name Role Phone Unavailable Primary Care Provider Unavailabl e Encounter Details Date Type Department Care Team (Late st Contact Info) Description 10/28/2018 Ancillary Orders [facility] [address] [facility] 3rd Floor, [address] [place], [place] [phone] Felton Triana MD [address] [place] [address] [email or web address] Social History Tobacco Use Types Packs/Day Years [...] is not the complete legal health record.[facility]
--- OUTSIDE RECORDS SUMMARY | 2025-10-24 14:32 | XMS_ITS | Encounter Summary ---
Author Organization [facility] Address [address] [place] [address] Phone Care Team Providers Care Wash Tub Machine Operator Name Role Phone Unavailable Primary Care Provider Unavailabl e Encounter Details Date Type Department Care Team (Late st Contact Info) Description 10/28/2018 Ancillary Orders [facility] [address] [place] [address] [place] [address] Felton Triana MD [address] [place] [address] [email or web address] Social History Tobacco Use [...]
--- OUTSIDE RECORDS SUMMARY | 2025-10-24 14:32 | XMS_ITS | Encounter Summary ---
Author Organization [employer] Address [address] 7t [place] [address] Care Team Providers Care Compounder Flavorings Name Role Phone Pedro Pulliam MD Primary Care Provide r Niko Salamanca MD Unavailable [phone] Summer Wills MD Unavailable [phone] Encounter Details Date Type Department Care Team (Late st Contact Info) Description 10/24/2025 Orders Only GENERIC EXTERNAL DATA DEPARTMENT Provider, [...] Answer Date Recorded Internet Access Q1 Yes 10/21/2025 Internet Access Q2 Not on file 10/21/2025 Sex and Gender Information Value Date Recorded [...] Comments PROTHROMBIN TIME WHOLE BLD POC Routine 10/24/2025 11:28 AM EST ~PT, ~INR - ANTI COAG CLINIC Routine 10/24/2025 11:28 AM EST documented in this encounter Results * (ABNORMAL) PROTHROMBIN TIME WHOLE BLD POC (10/24/2025 11:28 AM EST) Protime 21.6(H) 11.1 - 13.5 sec [facility] 10/24/2025 11:2 8 AM EST 10/24/2025 12:30 PM EST us Generic External Data Provider LAB BLOOD ORDERAB LES Final Result Performing Organization Address City/State/[facility] Co de Phone Number [facility] [address] [place] [phone] * (ABNORMAL) ~PT, ~INR - ANTI COAG CLINIC (10/24/2025 11:28 AM EST) Prothrombin Time INR 1.8(H) 0.9 - 1.1 [facility] Comment:METER #: [id number] TERNATIONAL NORMALIZED RATIO (INR) REFERENCE RANGES Reference RangeFor patients not on anticoagulant therapy: 0.9 - 1.1INR ranges for oral anticoagulanttherapy:For prevention and treatment of venous thrombosis and pulmonary embolism: 2.0 - 3.0For acute myocardial infarction with aspirin therapy: 2.0 - 3.0For acute myocardial infarction without aspirin therapy: 3.0 - 4.0For patients with mechanical prosthetic heart valves: 2.5 - 3.5 10/24/2025 11:2 8 AM EST 10/24/2025 12:30 PM EST us Generic External Data Provider LAB BLOOD ORDERAB LES Final Result [facility] [address] [place] [address] [phone] documented in this encounter Visit Diagnoses Not on filedocumented in this encounter Additional Health Concerns Assessment Noted Time PHQ-9 Depression Total Score: 0 10/17/20 24 1:50 PM EST documented as of this encounter Care Teams Compounder Flavorings Relationship Specialty Start Date End Date Pedro Pulliam MD [address] [place] [address] PCP - General Internal Medicine 09/10/14 Niko Salamanca MD [address] [place] [address] Nephrology 01/16/25 Summer Wills MD [address] [place] [address] Hematology and Oncology 06/27/25 documented as of this encounter
--- OUTSIDE RECORDS SUMMARY | 2025-10-24 14:32 | XMS_ITS | Encounter Summary ---
Author Organization [employer] Address [address] [facility] 7t [place] [address] Care Team Providers Care Heat Transfer Technician Name Role Phone Pedro Pulliam MD Primary Care Provide r Niko Salamanca MD Unavailable [phone] Summer Wills MD Unavailable [phone] Reason for Visit * Reason Comments Med Refill Encounter Details Date Type Department Care Team (Late st Contact Info) Description 08/19/2025 Refill [facility] [address] [place], [place] [phone] Pedro Pulliam MD [address] [place], [place] [phone] Vitamin D deficiency Social History Tobacco Use [...] documented as of this encounter Care Teams Heat Transfer Technician Relationship Specialty Start Date End Date Pedro Pulliam MD [address] [place] [address] PCP - General Internal Medicine 09/10/14 Niko Salamanca MD [address] [place] [address] Nephrology 01/16/25 Summer Wills MD [address] [place] [address] Hematology and Oncology 06/27/25 documented as of this encounter
--- OUTSIDE RECORDS SUMMARY | 2025-10-24 14:33 | XMS_ITS | Clinical Summary ---
Author Organization [facility] Address [address] [address] Phone Care Team Providers Care Stage Electrician Helper Name Role Phone Unavailable Primary Care [...] file Medical Devices Not on file [facility] ANTOINE W[employer] [id number] [place] [address] MEDICARE REPLACEMENT [facility] MEDICARE REPLACEMENT [facility] MEDICARE RE[place]EMENT [place] [address] MEDICARE REPLACEMENT [facility] MEDICARE REPLACEMENT [facility] MEDICARE REPLACEMENT [facility] MEDICARE REPLACEMENT Additional Source Comments The information contained in this document represents components of the legal health record. It is not the complete legal health record.[facility]
--- OUTSIDE RECORDS SUMMARY | 2025-10-24 14:33 | XMS_ITS | Encounter Summary ---
Author Organization [employer] Address [address] [facility] 7t [place] [address] Care Team Providers Care Cane Flume Chute Operator Name Role Phone Pedro Pulliam MD Primary Care Provide r Niko Salamanca MD Unavailable [phone] Summer Wills MD Unavailable [phone] Encounter Details Date Type Department Care Team (Late st Contact Info) Description 02/01/2023 Orders Only [facility] P[facility] [address] [place] [address] Shira Castano LPN Social History Tobacco Use [...] on filedocumented in this encounter Care Teams Cane Flume Chute Operator Relationship Specialty Start Date End Date Pedro Pulliam MD [address] [place] [address] PCP - General Internal Medicine 09/10/14 Niko Salamanca MD [address] [place] [address] Nephrology 01/16/25 Summer Wills MD [address] [place] [address] Hematology and Oncology 06/27/25 documented as of this encounter
--- OUTSIDE RECORDS SUMMARY | 2025-10-24 14:33 | XMS_ITS | Clinical Summary ---
Author Organization [facility] Address [address] [place] [address] Care Team Providers Care Development Mgr Name Role Phone Unavailable Primary Care Provider [...] on File Type Date Recorded Patient Environmental Compliance Officer Expl anation Health Care Decision (hx) 01/10/2020 AD PHILLIP DIRECTIVE
--- OUTSIDE RECORDS SUMMARY | 2025-10-24 14:33 | XMS_ITS | Encounter Summary ---
Author Organization [employer] Address [address] [facility] 7t [place] [address] Care Team Providers Care Home Performance Consultant Name Role Phone Pedro Pulliam MD Primary Care Provide r Niko Salamanca MD Unavailable [phone] Summer Wills MD Unavailable [phone] Reason for Visit * Reason Comments Med Refill Encounter Details Date Type Department Care Team (Late st Contact Info) Description 06/02/2024 Refill [facility] 230 [place], [place] [phone] Pedro Pulliam MD [address] [place], [place] [phone] Primary hypertension; Stage 3 chronic kidney disease, [...] stage 3a or 3b CKD (CMS/HCC) ([facility]) Nonrheumatic tricuspid valve regurgitation documented in this encounter Additional Health Concerns Assessment Noted Time PHQ-9 Depression Total Score: 1 09/23/20 23 1:21 PM EST documented as of this encounter Care Teams Home Performance Consultant Relationship Specialty Start Date End Date Pedro Pulliam MD [address] [place] [address] PCP - General Internal Medicine 09/10/14 Niko Salamanca MD [address] [place] [address] Nephrology 01/16/25 Summer Wills MD [address] [place] [address] Hematology and Oncology 06/27/25 documented as of this encounter
--- OUTSIDE RECORDS SUMMARY | 2025-10-24 14:33 | XMS_ITS | Encounter Summary ---
Author Organization [employer] Address [address] [facility] 7t [place] [address] Care Team Providers Care Pharmaceutical Officer Name Role Phone Pedro Pulliam MD Primary Care Provide r Niko Salamanca MD Unavailable [phone] Summer Wills MD Unavailable [phone] Reason for Visit * Reason Onset Date Comments Med Refill 2023 Encounter Details Date Type Department Care Team (Late st Contact Info) Description 2023 Refill [facility] [address] [place], [place] [phone] Pedro Pulliam MD [address] [place], [place] [phone] Atrial fibrillation, unspecified type (CMS/HCC) (Primary Dx) [...] Primary documented in this encounter Care Teams Pharmaceutical Officer Relationship Specialty Start Date End Date Pedro Pulliam MD [address] [place] [address] PCP - General Internal Medicine 09/10/14 Niko Salamanca MD [address] [place] [address] Nephrology 01/16/25 Summer Wills MD [address] [place] [address] Hematology and Oncology 06/27/25 documented as of this encounter
--- OUTSIDE RECORDS SUMMARY | 2025-10-24 14:33 | XMS_ITS | Encounter Summary ---
Author Organization [facility] Address [address] [facility] 7t [place] [address] Care Team Providers Care Manager Fraud Name Role Phone Pedro Pulliam MD Primary Care Provide r Niko Salamanca MD Unavailable [phone] Summer Wills MD Unavailable [phone] Encounter Details Date Type Department Care Team (Late st Contact Info) Description 01/06/2023 Orders Only [facility] [address] [place] [address] Shira Castano LPN Social History Tobacco Use [...] filedocumented in this encounter Care Teams Manager Fraud Relationship Specialty Start Date End Date Pedro Pulliam MD [address] [place] [address] PCP - General Internal Medicine 09/10/14 Niko Salamanca MD [address] [place] [address] Nephrology 01/16/25 Summer Wills MD [address] [place] [address] Hematology and Oncology 06/27/25 documented as of this encounter
--- OUTSIDE RECORDS SUMMARY | 2025-10-24 14:33 | XMS_ITS | Encounter Summary ---
Author Organization [employer] Address [address] [place] [address] 7t [place] [address] Care Team Providers Care Supervisor Line Department Name Role Phone Pedro Pulliam MD Primary Care Provide r Niko Salamanca MD Unavailable [phone] Summer Wills MD Unavailable [phone] Encounter Details Date Type Department Care Team (Late st Contact Info) Description 05/31/2023 Orders Only [facility] [address] [place] [address] Shanita Pfeiffer LPN Social History Tobacco Use [...] filedocumented in this encounter Care Teams Supervisor Line Department Relationship Specialty Start Date End Date Pedro Pulliam MD 230 [place] [address] PCP - General Internal Medicine 09/10/14 Niko Salamanca MD [address] [place] [address] Nephrology 01/16/25 Summer Wills MD [address] [place] [address] Hematology and Oncology 06/27/25 documented as of this encounter
--- OUTSIDE RECORDS SUMMARY | 2025-10-24 14:33 | XMS_ITS | Encounter Summary ---
Author Organization [employer] Address [address] [place] [address] 7t [place] [address] Care Team Providers Care Director Of Human Resources Name Role Phone Pedro Pulliam MD Primary Care Provide r Niko Salamanca MD Unavailable [phone] Summer Wills MD Unavailable [phone] Encounter Details Date Type Department Care Team (Late st Contact Info) Description 02/25/[address] [facility] [address] [place] [address] Shanita Pfeiffer LPN Social History Tobacco Use [...] filedocumented in this encounter Care Teams Director Of Human Resources Relationship Specialty Start Date End Date Pedro Pulliam MD 230 [place] [address] PCP - General Internal Medicine 09/10/14 Niko Salamanca MD [address] [place] [address] Nephrology 01/16/25 Summer Wills MD [address] [place] [address] Hematology and Oncology 06/27/25 documented as of this encounter
--- OUTSIDE RECORDS SUMMARY | 2025-10-24 14:33 | XMS_ITS | Patient Health Record ---
Author Organization - [facility] Practice Address [address] [place] [address] Care Team Providers Care Document Review Attorney Name Role Phone Vivian Joshua Raheem Unavailable [phone] NORY BALES Unavailable [phone] ISAAC RICHMOND Unavailable [phone] Allergies No Known Allergies Reason For Referral [...] Problem Status W/U Status Risk Notes Problem Iron deficiency anemia (43330092) Iron deficiency anemia, unspecified iron deficiency anemia type (D50.9) Active confirmed Problem Walking disability (408810462) Ambulatory dysfunction (R26.2) Active confirmed Problem Glaucoma (58994472) Glaucoma of both eyes, unspecified glaucoma type (H40.9) Active confirmed Problem History of alcohol use disorder (situation) (5703185465) History of alcohol abuse (F10.11) Active confirmed Problem Atrial fibrillation (41463133) Paroxysmal A-fib (I48.0) Active confirmed Problem Obstructive sleep apnea syndrome (86076124) KARINA on CPAP (G47.33) Active confirmed Problem Hyperlipidaemia (26524074) Hyperlipidemia, unspecified hyperlipidemia type (E78.5) Active confirmed Problem Essential hypertension (65991129) Essential hypertension (I10) Active confirmed Vital Signs Heart Rate 41 /min 11/17/2024 Height-cm 175.26 cm 11/17/2024 Blood pressure diastolic 53 mm Hg 11/17/2024 Weight-kg 86.18 kg 11/17/2024 Height 69 in 11/17/2024 Blood pressure systolic 120 mm Hg 11/17/2024 Weight 190 lbs 11/17/2024 BMI 28.06 kg/m2 11/17/2024 Encounters Encounter Location Date Provider Diagnosis - [facility] [address] [place] [address] 11/17/2024 NORY BALES Glaucoma of both eye s, unspecified glaucoma type H40.9 ; Paroxysmal A-fib I48.0 ; Ambulatory dysfunction R26.2 ; Essential hypertension I10 ; Iron deficiency anemia, unspecified iron deficiency anemia type D50.9 ; KARINA on CPAP G47.33 ; Hyperlipidemia, unspecified hyperlipidemia type E78.5 and History of alcohol abuse F10.11 - [facility] [address] [place] [address] 11/24/2024 NORY BALES [facility] [address] [facility] [address] [place] [address] 12/18/2024 ISAAC RICHMOND [facility] [address] [facility] [address] [place] [address] 01/12/2025 NORY BALES [facility] [address] [place] [address] 02/20/2025 NORY BALES - [place] - [facility] [address] [place] [address] 03/27/2025 NORY Gregorio [place] - [facility] [address] [facility] [address] [place] [address] 04/16/2025 NORY BALES - [place] - [facility] [address] [facility] [address] [place] [address] 05/18/2025 NORY Gregorio [place] - [facility] [address] [facility] [address] [place] [address] 07/02/2025 NORY Gregorio [place] - [facility] [address] [facility] [address] [place] [address] 07/25/2025 NORY BALES - [place] - [facility] [address] [address] 11/28/2024 NORY Gregorio [place] - [facility] [address] [facility] [address] [place] [address] 12/19/2024 ISAAC HERNANDEZ - [facility] [address] [place] [address] 01/15/2025 NORY Gregorio [place] - [facility] [address] [address] 01/16/2025 NORY Gregorio [place] - [facility] [address] [address] 02/08/2025 NORY Gregorio [place] - [facility] [address] [facility] [address] [place] [address] 02/20/2025 NORY Gregorio [place] - [facility] [address] [facility] [address] [place] [address] 03/29/2025 NORY HERNANDEZ - [facility] [address] [place] [address] 04/03/2025 NORY BALES Assessments Encounter Date Diagnosis [...] aspirin and to discuss this with the Mixed Signal Design Engineer as the combination of aspirin and coumadin [...] fair. 12/18/2024 Member/Ca regiver contacted for health financial coach visit. Reviewed the call purpose. Confirmed member name and birthdate. Explanation of health coaching services: Health coaching assists people in making improvements in their health that reflect their values and priorities. A health financial coach works with you to take small [...] Member co ntacted for CCM Monthly. Health financial coach confirmed member name and birthdate. CCM [...] 03/27/2025 Member contacted for CCM Monthly. Health financial coach confirmed member name and birthdate. CCM program touchpoint briefly described. Member has no changes in condition or concerns to report. Member had no acute events. Discussion on Medication and Appointment Compliance and Healthy Eating. Member reported he is having ear pain, health financial coach offered triage but member denied at this time. Member has PCP appointment tomorrow, recommended for member to request earlier visit if possible. Member will be following up with PCP regarding CPAP machine. Member has no known upcoming appointments. [facility] next program touchpoint briefly described. Member voiced understanding for the call and the support. 31/05 line reinforced. 04/16/2025 Member was contacted for a health financial coach visit. Reviewed the purpose of the [...] he likes it. Reviewed transportation services with [facility]. He takes himself to his appointments. He considers all areas of his health the most important. He enjoyed walking in a park recently but his foot pain limits his movement. He has a book for bed exercises and, as a result, declined a bed exercise resource. Explained inSTED. He stated he called [facility] for an earache (resolved, no acute needs) but was told medication couldn't be sent. No record of this. The health financial coach stated it was not [facility] since there are records of member calls. He stated this was a month ago. He was able to go to a clinic and had his ear cleaned out and received medication. The health financial coach summarized the call. Details below. Clinical support line reinforced for any and all acute needs. 05/18/2025 - Educated on 2 objectives based on the STRUCTURAL DRAFTER/RN Care Plan - Caregiver/Member voiced understanding for the call and the support. 31/05 line reinforced. 07/02/2025 - Educated on 2 objectives based on the STRUCTURAL DRAFTER/RN Care Plan Health financial coach discussed with member about nutrition, physical activity and blood pressure monitoring. Member reported eating food low in sodium. The member stated sometimes walking but not being able to do it recently, due to swollen thighs. Health financial coach suggested the member to communicating with the clinical team about the swollen thighs, but the member declined stating he had struggled with that for years. Health financial coach inquired about blood pressure monitoring. The member stated monitoring blood pressure every day. - Member voiced understanding for the call and the support. 31/05 line reinforced. 07/25/2025 - Educated on 2 objectives based on the STRUCTURAL DRAFTER/RN Care Plan - Caregiver/Member voiced understanding for the call and the support. 31/05 line reinforced. 02/20/2025 S: RN spoke with the member via [employer] eduard for a care plan update. The [...] himself to schedule a visit with his asset protection professional, and the member refused RNs assistance. A: [...] Insured Coverage Start Date Coverage End Date [facility] of [facility] [address] [address] [place] [address] [id number] Jamie hSah Self - patient is the insured 8 [employer] of [place] [address] [place] [phone] [id number] Jamie Shah Self - patient is the [...]
--- OUTSIDE RECORDS SUMMARY | 2025-10-24 14:33 | XMS_ITS | Clinical Summary ---
Author Organization [employer] Address [address] [facility] [address] [place] [address] Care Team Providers Care Float Tender Name Role Phone Pedro Pulliam MD Primary Care Provide r Niko Salamanca MD Unavailable [phone] Summer Wills MD Unavailable [phone] Allergies No known active allergies Medications Aspirin Low Dose 81 MG EC tabletIndications :Primary hypertension TAKE 1 TABLET BY MOUTH EVERY DAY 30 tablet 6 11/30/19 24 Active warfarin (Coumadin) 5 MG tabletIndications :Atrial fibrillation, unspecified type (CMS/HCC) (HCC) TAKE 1 TABLET BY MOUTH EVERY DAY DIRECTED BY [facility]ADIN CLINIC 90 tablet 02/10/20 24 Active furosemide (Lasix) 20 MG tabletIndications :Stage 3 chronic kidney disease, unspecified whether stage 3a or 3b CKD (CMS/HCC) (HCC),Primary hypertension,Nonr heumatic tricuspid valve regurgitation 1 tab daily 60 tablet 08/22/20 24 Active carbamide peroxide (Debrox) 6.5 % otic solutionIndicatio ns:Impacted cerumen of left ear Administer 5 drops into the left ear 2 times daily. 15 mL 03/28/20 25 Active cholecalciferol (Vitamin D-3) 25 MCG tabletIndications :Vitamin D deficiency TAKE 1 TABLET BY MOUTH EVERY DAY 90 tablet 1 05/17/20 25 Active warfarin (Coumadin) 5 MG tabletIndications :Atrial fibrillation, unspecified type (CMS/HCC) (HCC) TAKE 1 TABLET BY MOUTH EVERY DAY DIRECTED BY COUMADIN CLINIC 90 tablet 3 05/22/20 25 Active atorvastatin (Lipitor) 80 MG tabletIndications :Mixed hyperlipidemia TAKE 1 TABLET BY MOUTH EVERY DAY AT BEDTIME 90 tablet 1 5 9:12 AM EST 10/01/20 25 Active Ferrous Sulfate (iron) 325 (65 Fe) MG tabletIndications :Iron deficiency TAKE 1 TABLET BY MOUTH EVERY DAY 90 tablet 1 5 9:12 AM EST 10/01/20 25 Active amLODIPine (Norvasc) 5 MG tabletIndications :Primary hypertension TAKE 1 TABLET BY MOUTH EVERY DAY 90 tablet 1 5 9:12 AM EST 10/01/20 25 Active Ferrous Sulfate (iron) 325 (65 Fe) MG tabletIndications :Iron deficiency TAKE 1 TABLET BY MOUTH ONCE DAILY 90 tablet 1 04/10/20 25 2024 Discontinued atorvastatin (Lipitor) 80 MG tabletIndications :Mixed hyperlipidemia TAKE 1 TABLET BY MOUTH AT BEDTIME 90 tablet 1 04/10/20 25 2024 Discontinued amLODIPine (Norvasc) 5 MG tabletIndications :Primary hypertension TAKE 1 TABLET BY MOUTH ONCE DAILY 90 tablet 1 04/10/20 25 2024 Discontinued Active Problems Problem Noted [...] pt currently undergoing PT with good results. [facility] care 09/23/2023 Assessment & Plan (07/17/2025 2:10 [...] Zoster: 02/26/2015 Stage 3b chronic kidney disease (CMS/HCC) 201809/15/2023 Assessment & Plan (07/17/2025 1:53 PM [...] the past by his vascular surgeon at [facility] (Dr Lind) whose recommendation was conservative treatment, he saw NO role for any type of surgical intervention. He recommended to repeat the scan in 1 year and continue to take Asa 81 mg po daily. Pt was last seen by his treatment technician at [facility] 09/14/2023 [...] and lasix 20 mg daily prescribed by Digester Operator Helper. Off Lisinopril 40 mg po daily (stopped by Sweeping Compound Blender 04/01) I had lowered his Lasix due [...] and lasix 20 mg daily prescribed by Digester Operator Helper. Pt is off Lisinopril 40 mg po daily (stopped by Sweeping Compound Blender 04/01) I had recently lowered his Lasix [...] and lasix 20 mg daily prescribed by Digester Operator Helper. I had recently lowered his Lasix due [...] and lasix 20 mg daily prescribed by Digester Operator Helper. I had recently lowered his Lasix due [...] Am and 20 mg PM prescribed by Digester Operator Helper. I had recently lowered his Lasix due [...] Am and 20 mg PM prescribed by Digester Operator Helper. Pt developed some bilateral ankle edema due [...] Furosemide 20 mg po BID prescribed by Digester Operator Helper. Pt developed some bilateral ankle edema due [...] Furosemide 20 mg po BID prescribed by Digester Operator Helper. Pt developed some bilateral ankle edema due [...] clinical impression. Plan: Breast center referral at [facility] Assessment & Plan (02/01/2024 1:36 [...] Encounters Date Type Department Care Team Description 10/24/2025 Orders Only GENERIC EXTERNAL DATA DEPARTMENT Provider, Generic External Data 10/01/2025 Refill [facility] [address] [place] [address] Pedro Pulliam MD Mixed hyperlipidemia; Iron deficiency; Primary hypertension 09/26/2025 Orders Only GENERIC EXTERNAL DATA DEPARTMENT Provider, Generic External Data 09/05/2025 Orders Only GENERIC EXTERNAL DATA DEPARTMENT Provider, Generic External Data 08/31/2025 Orders Only GENERIC EXTERNAL DATA DEPARTMENT Provider, Generic External Data 08/31/2025 Telephone [facility] [address] [place] [address] Pedro Pulliam MD Medication Question 08/22/2025 Orders Only GENERIC EXTERNAL DATA DEPARTMENT Provider, Generic External Data 08/19/2025 Refill [facility] [address] [place] [address] Pedro Pulliam MD Vitamin D deficiency 08/15/2025 Orders Only GENERIC EXTERNAL DATA DEPARTMENT Provider, Generic External Data 08/10/2025 Orders Only GENERIC EXTERNAL DATA DEPARTMENT Provider, Generic External Data 08/08/2025 Telephone [facility] [address] [place] [address] Pedro Pulliam MD Critical INR 08/08/2025 Orders [...] Health Maintenance Due Date Last Done Comments Alcohol/Substance Use Screening 1957 Zoster Vaccines (3 of 3) 03/04/2020 01/08/2020, 02/07 RSV Patients and Patients Aged 60 years or older (1 - 1-dose 75+ series) 2021 Mammogram 04/11/2025 04/11/2024, 04/11/2024 COVID-19 Vaccine ( season) 2025 11/11/2021, 03/05/2021, 02/05/2021 Influenza Vaccine (#1) 2025 , 09/23/2023, 09/29/2022, Additional history exists Depression Screening 10/17/2025 10/17/2024, 10/17/20 24 SDOH [...] [facility] Routine 10/24/2025 11:28 AM EST PROTHROMBIN TIME WHOLE BLD POC Routine 09/26/2025 [...] Routine 08/31/2025 9:26 AM EDT URINALYSIS, COMPLETE (INCLUDES MACRO AND MICRO) Routine 08/31/2025 9:26 AM EDT BASIC METABOLIC [...] [facility] Routine 07/25/2025 9:25 AM EDT LIPID PANEL, STANDARD Routine 01/16/2025 9:13 AM EDT Mixed hyperlipidemia BI MAMMOGRAM DIAGNOSTIC TOMOSYNTHESIS BILATERAL Routine 04/11/2024 3:15 PM EDT Gynecomastia ZZZ HISTORICAL HEPATITIS C AB W/REFL TO HCV RNA, QN, PCR Routine 12/24/2021 8:24 AM EST from Last 3 Months or Most Recently Relevant to Health Maintenance Results * (ABNORMAL) PROTHROMBIN TIME WHOLE BLD POC (10/24/2025 11:28 AM EST) Only the most recent of8 resultswithin the time period is included. Protime 21.6(H) 11.1 - 13.5 sec [facility] 10/24/2025 11:2 8 AM EST 10/24/2025 12:30 PM EST Generic External Data Provider LAB BLOOD ORDERAB LES Final Result Performing Organization Address [facility] Co de Phone Number [facility] [address] [place] [phone] * (ABNORMAL) ~PT, ~INR - ANTI COAG CLINIC (10/24/2025 11:28 AM EST) Only the most recent of8 resultswithin the time period is included. Prothrombin Time INR 1.8(H) 0.9 - 1.1 [facility] Comment:METER #: [id number] TERNATIONAL NORMALIZED RATIO (INR) REFERENCE RANGES Reference [...] AM EST 10/24/2025 12:30 PM EST us Targeted Growth External Data Provider LAB BLOOD ORDERAB LES Final Result Performing Organization Address [facility] Co de Phone Number [facility] [address] [place] [address] [phone] * (ABNORMAL) CBC auto differential (08/31/2025 9:26 AM EDT) White Blood Count 2.1(L) 4.8 - 10.8 X10*3/uL [facility] Red Blood Count 2.78(L) 4.60 - 5.80 X10*6/uL [facility] Hemoglobin 8.3(L) 14.0 - 18.0 g/dl [facility] Hematocrit 26.4(L) 42.0 - 52.0 % [facility] Mean Corpuscular Volume 95.0 80.0 - 98.0 fL [facility] Mean Corpuscular Hemoglobin 29.9 27.0 - 33.0 pg [facility] Mean Corpuscular HGB Conc 31.4 31.0 - 36.0 g/dl [facility] Red Cell Distribution Width 15.9 11.0 - 16.0 % [facility] Platelet Count 76(L) 160 - 400 X10*3/uL [facility] Mean Platelet Volume 10.1 9.4 - 12.4 fL [facility] Neutrophils Percent Auto 58.8 45 - 73 % [facility] Imm Gran Pct Auto 0.5(H) 0.0 - 0.4 % [facility] Lymphocytes Percent Auto 21.3 20 - 40 % [facility] Monocytes Percent Auto 15.0(H) 2 - 11 % [facility] Eosinophils Percent Auto 3.9 0 - 4 % [facility] Basophils Percent Auto 0.5 0 - 2 % [facility] NRBC Pct Auto 0.0 0.0 - 0.2 /100WBC [facility] Neutrophils Absolute Auto 1.2(L) 2.0 - 8.3 x10*3/uL [facility] Imm Gran Abs Auto 0.01 0.00 - 0.03 X10*3/uL [facility] Lymphocytes Absolute Auto 0.4(L) 1.2 - 4.9 X10*3/uL [facility] Monocytes Absolute Auto 0.3 0.1 - 1.2 X10*3/uL [facility] Eosinophils Absolute Auto 0.1 0.0 - 0.4 X10*3/uL [facility] Basophils Absolute Auto 0.0 0.0 - 0.2 X10*3/uL [facility] NRBC Abs Auto 0.000 0.0 - 0.012 X10*3/uL [facility] 08/31/2025 9:26 AM EDT 08/31/2025 11:20 AM EDT Generic External Data Provider LAB BLOOD ORDERAB LES Edited Result - Final Performing Organization Address [facility] Co de Phone Number [facility] [address] [place] [phone] * (ABNORMAL) Urine Protein, Total, Random without Creatinine (08/31/2025 9:26 AM EDT) Protein, Total, Random Urine 28(H) <12 mg/dL [facility] 08/31/2025 9:26 AM EDT 08/31/2025 12:23 PM EDT Generic External Data Provider LAB URINE ORDERAB LES Final Result Performing Organization Address [facility] Co de Phone Number [facility] [address] [place] [phone] * Creatinine, Random Urine (08/31/2025 9:26 AM EDT) Creatinine, Urine 98.99 mg/dL [facility] 08/31/2025 9:26 AM EDT 08/31/2025 12:23 PM EDT Generic External Data Provider LAB URINE ORDERAB LES Final Result Performing Organization Address [facility] de Phone Number [facility] [address] [place] [phone] * (ABNORMAL) Urinalysis Complete (08/31/2025 9:26 AM EDT) Color Urine Yellow [facility] Appearance Urine Clear [facility] PH 5.0 5.0 - 9.0 [facility] Glucose Urine UA Negative Negative mg/dL [facility] Urine Blood Trace(A) Negative [facility] Specific Mallory - Urine 1.010 1.005 - 1.025 [facility] Urine Protein 30 (1+)(A) Neg-Trace mg/dL [facility] Urine Ketones Negative Negative mg/dL [facility] Nitrite Urine Negative Negative [facility] Leukocyte Esterase Urine Negative Negative [facility] RBC Urine 0-2 0 - 2 /HPF [facility] Urine WBC 0-5 0 - 5 /HPF [facility] Urine Squamous Epithelial Cell 0-2 0 - 2 /HPF [facility] Urine Bacteria None Seen None Seen [facility] Hyaline Casts, Urine 3-5 0 - 2 /LPF [facility] 08/31/2025 9:26 AM EDT 08/31/2025 12:23 PM EDT us Generic External Data Provider LAB URINE ORDERAB LES Final Result Performing Organization Address [facility] de Phone Number [facility] [address] [place] [phone] * (ABNORMAL) Immunofixation, Serum (08/31/2025 9:26 AM EDT) IMMUNOGLOBULIN G 1869(A) 600 - 1540 mg/dL [facility] IMMUNOGLOBULIN A 290 70 - 320 mg/dL [facility] Immunoglobulin M 61 50 - 300 mg/dL [facility] Comment:THIS TEST WAS PERFOR MED AT:[facility] [place] [phone] SEGURA MD Immunofixation Result SEE NOTE [facility] Comment:Faint IgG kappa mono clonal band present. 08/31/2025 9:26 AM EDT 08/31/2025 11:20 AM EDT us Generic External Data Provider LAB BLOOD ORDERAB LES Final Result Performing Organization Address [facility] Co de Phone Number [facility] [address] [place] [phone] * (ABNORMAL) Protein, Total and Protein??Electrophoresis (08/31/2025 9:26 AM EDT) Prot Elec - Total Protein 7.1 6.1 - 8.1 g/dL [facility] Prot Elec - Albumin 3.9 3.8 - 4.8 g/dL [facility] Prot Elec - Alpha1 0.3 0.2 - 0.3 g/dL [facility] Prot Elec - Alpha2 0.5 0.5 - 0.9 g/dL [facility] Prot Elec - Beta 1 0.4 0.4 - 0.6 g/dL [facility] Prot Elec - Beta 2 0.4 0.2 - 0.5 g/dL [facility] Prot Elec - Gamma 1.7 0.8 - 1.7 g/dL [facility] PES - Abn Protein Band 1 0.7(A) NONE DETECTED g/dL [facility] PES-Abn Protein Band 2 TNP [facility] PES-Abn Protein Band 3 [facility] Prot Elec - Interpretation SEE NOTE [facility] Comment:Evaluation reveals a restricted band (M-spike)migrating in the gamma globulin region. If notalready requested, Immunofixation should beconsidered.THIS TEST WAS PERFORMED AT:[facility] [place] [phone] SEGURA MD 08/31/2025 9:26 AM EDT 08/31/2025 11:20 AM EDT us Generic External Data Provider LAB BLOOD ORDERAB LES Final Result [facility] [address] [place] [phone] * (ABNORMAL) Basic Metabolic Panel (08/31/2025 9:26 AM EDT) [facility] Sodium 139 135 - 145 mmol/L [facility] Potassium 3.9 3.3 - 5.1 mmol/L [facility] Chloride 113(H) 96 - 108 mmol/L [facility] Carbon Dioxide 21(L) 22 - 29 mmol/L [facility] Anion Gap 9(L) 12 - 20 [facility] Urea Nitrogen (BUN) 21(H) 9 - 16 mg/dL [facility] Creatinine, Serum 2.12(H) 0.5 - 1.4 mg/dL [facility] Estimated Glomerular Filt Rate 30 [facility] Comment:Chronic Kidney Disea se: Estimated GFR < 60 mL/min/1.99k4Fmygeh Kidney Disease: Estimated GFR < 15 mL/min/1.73m2 Glucose 85 60 - 115 mg/dL [facility] Calcium 8.2(L) 8.4 - 10.2 mg/dL [facility] 08/31/2025 9:26 AM EDT 08/31/2025 11:20 AM EDT us Generic External Data Provider LAB BLOOD ORDERAB LES Final Result [facility] [address] [place] [phone] * (ABNORMAL) Lipid Panel, Standard (01/16/2025 9:13 AM EDT) Triglycerides 40 <150 mg/dL [facility] Comment:Desirable Triglyceri de: less than 150 mg/dLBorderline High Triglyceride 150-199 mg/dLHigh Triglyceride: 200-499 mg/dLVery High Triglyceride: greater than or equal to 5OO mg/dL Cholesterol 93 <200 mg/dL [facility] Comment:Desirable Cholestero l: less than 200 mg/dLBorderline High Cholesterol: 200-239 mg/dLHigh Cholesterol: greater than 239 mg/dL LDL Cholesterol Calculated 58 <100 mg/dL [facility] Comment:Desirable LDL: less than 100 mg/dLNear Optimal/Above Optimal LDL: 110- 129 mg/dLBorderline High LDL: 130-159 mg/dLHigh LDL: 160-189 mg/dLVery High LDL: greater than or equal to 190 mg/dL HDL Cholesterol 27(L) >40 mg/dL [facility] Comment:Desirable HDL: great er than 40 mg/dL Note: This HDL assay may give artificially low results in patients with liver disease. Blood Venous blood specimen / Unknown 01/16/2025 9:13 AM EDT 01/16/2025 11:29 AM EDT us Pedro Julian MD LAB BLOOD ORDERABLES Final Result [facility] [address] [place] [phone] * BI Mammogram Diagnostic Tomosynthesis Bilateral (04/11/2024 3:15 PM EDT) Anatomical Region Laterality Modality Breast Bilateral Mammography 04/11/2024 3:15 PM EDT Narrative 04/11/2024 4:59 PM EDT [facility] [address] [place] [address] Mammography Report Signed Patient: Jamie Carpio MR#: [id number] : 1945 Acct:[id number] Age/Sex: 79 / M ADM Date: 04/11/24 Loc: HO.MAMMO Attending Dr: Pedro Webber MD Ordering Physician: Pedro Webber MD Resu lts: 2Benign Findings Date of Service: 04/11/24 Follow Up: 1 Year From [facility] Mammogram Procedure(s): MM tomosynthesis diagnostic BI Accession Number(s): [id number] cc: Pedro Webber MD EXAMINATION: MM DIAGNOSTIC [...] OV> 04/11/24 1654 DD/ 1515 TD/TT: Painter Maintenance: Procedure Note Donotuseinterpreter, Image - 04/11/2024 [facility] [address] [place] [address] Mammography Report Signed Patient: Sofya CarpioWilton#: [id number] : 1945cct:[id number] Age/Sex: 79 / MADM Date: 04/11/24 Loc: HO.MAMMO Attending Dr: Pedro Webber MD Ordering Physician: Pedro Webber MDResu lts: 2Benign Findings Date of Service: 04/11/24Follow Up: 1 Year From [facility] Mammogram Procedure(s): MM tomosynthesis diagnostic BI Accession Number(s): [id number] cc: Pedro Webber MD EXAMINATION: MM DIAGNOSTIC [...] OV> 04/11/24 1654 DD/ 1515 TD/TT: Painter Maintenance: Pedro Julian MD IMG BI PROCEDURES Fin al Result * HEPATITIS C AB W/REFL TO HCV RNA, QN, PCR (12/24/2021 8:24 AM EST) HEPATITIS C ANTIBODY NON-REACT SIL NON-REACT SIL [facility] INDEX 0.01 <1.00 [facility] Comment: HCV antibody was non-reactive. There is no laboratory evidence of HCV infection. In most cases, no further action is required. However, if recent HCV exposure is suspected, a test for HCV RNA (test code 94853) is suggested. For additional information please refer to http://education.SpePharm.Accupal/faq/SVZ15n2 (This link is being provided for informational/ educational purposes only.) 12/24/2021 8:24 AM EST Pedro Julian MD HISTORICAL/NON ORDERA BLE LABS Final Result [facility] [address] from Last 3 Months or Most Recently Relevant to Health Maintenance Insurance [facility] OPTIONS (O D-SNP) Care Teams Float Tender Relationship Specialty Start Date End Date Pedro Pulliam MD [address] [place] [address] PCP - General Internal Medicine 09/10/14 Niko Salamanca MD [address] [place] [phone] Nephrology 01/16/25 Summer Wills MD [address] [place] [phone] Hematology and Oncology 06/27/25
--- OUTSIDE RECORDS SUMMARY | 2025-10-24 14:33 | XMS_ITS | Encounter Summary ---
Author Organization [employer] Address [address] [facility] [address] [place] [address] Care Team Providers Care Manager Unit Name Role Phone Pedro Pulliam MD Primary Care Provide r Niko Salamanca MD Unavailable [phone] Summer Wills MD Unavailable [phone] Reason for Visit * Reason Onset Date Comments OV 03/1602/17/2024 Encounter Details Date Type Department Care Team (Late st Contact Info) Description 02/17/2024 Telephone [facility] [address] [place], [place] [phone] Pedro Pulliam MD [address] [place], [place] [phone] OV 03/16 Social History Tobacco Use Types [...] any questions you can contact pt at [phone]. documented in this encounter Plan of Treatment Not on file documented as of this encounter Visit Diagnoses Not on filedocumented in this encounter Additional Health Concerns Assessment Noted Time PHQ-9 Depression Total Score: 1 09/23/20 23 1:21 PM EST documented as of this encounter Care Teams Manager Unit Relationship Specialty Start Date End Date Pedro Pulliam MD [address] [place] [address] PCP - General Internal Medicine 09/10/14 Niko Salamanca MD [address] [place] [phone] Nephrology 01/16/25 Summer Wills MD [address] [place] [phone] Hematology and Oncology 06/27/25 documented as of this encounter
== END 2025-10-24 11:42 | disposition home or self-care (01) ==
LOC: HO.ACS 11:03
PROVIDERS: PCP Internal Medicine; Visit Provider Internal Medicine Medical Oncology
DX: Z79.01 Long term (current) use of anticoagulants (principal)

== ENCOUNTER → 2025-10-24 11:03 | Outpatient (BNVA) | payer OTHER, SELFPAY | PROVIDERS: PCP Internal Medicine; Visit Provider Internal Medicine Medical Oncology | DX: I48.0 Paroxysmal atrial fibrillation (principal); Z79.01 Long term (current) use of anticoagulants; Z51.81 Encounter for therapeutic drug level monitoring | CPT/HCPCS: 85610; 99211 ==

== ENCOUNTER 2025-11-07 11:21 | Outpatient (AMB) | payer OTHER, SELFPAY ==
[2025-11-07 11:35] LABS: Prothrombin Time Whole Bld POC 26.0 sec (11.1-13.5); ~PT, ~INR - Anti Coag Clinic 2.2 (0.9-1.1)
--- NOTE | 2025-11-07 11:35 | MHC.OFFVISCO ---
Intake Intake Visit Reasons: Anticoagulation Allergies No Known Allergies (No Known Allergies*) Allergy (Verified 11/07/25 11:31) Medication List - Last Reconciled 11/07/25 by Joyce Garcia RN amlodipine 5 mg PO DAILY atorvastatin 80 mg PO BEDTIME carbamide peroxide 6.5% (Ear Wax Removal Drops) 5 drps otic (ear) left BID cholecalciferol (vitamin D3) 25 mcg PO DAILY dorzolamide-timolol 22.3-6.8 mg/mL 22.3 drps ophthalmic (eye) BID ferrous sulfate (FeroSul) 1 tab PO DAILY furosemide 40 mg PO DAILY iron sucrose (Venofer) 200 mg IV Q3D octreotide acetate (Mycapssa) 20 mg PO DAILY Held on 11/20/22. Instructions: rejected by insurance pantoprazole 40 mg PO DAILY peg-electrolyte soln 420 gram 240 mL PO Q10M terazosin 5 mg PO BEDTIME 90 days travoprost 0.004% 1 drp ophthalmic (eye) BEDTIME warfarin 5 mg See Protocol PO DAILY Nursing Note INR: 2.2- in therapeutic range 2-3 Medications and supplements reviewed- no changes No changes in health, diet, medications, or supplements, Denies any signs and symptoms of bleeding or bruising or clotting. Bleeding, bruising, clotting discussed Nutritional guidance given Dose: 5ng x 1, 2,5ng x 6 F/U INR: pt req 4 weeks Patient verbalizes understanding of instructions given Anti-Coag Initial Assessment Social Hx Patient Tobacco Use Status: Former Tobacco user Tobacco use type: Cigarette alcohol intake: former Alcohol intake frequency: does not drink Coding Level of Care Code Est Patient Level 1 Diagnoses Current use of anticoagulant therapy Z79.01 Assessment & Plan Assessment & Plan (1) Current use of anticoagulant therapy: Comment: warfarin-Otto Margarette- need to confirm ok to stop 5 days prior to colonoscopy-unable to send note through expanse Patient aware this must be confirmed, there were no major barriers to understanding identified Code(s): Z79.01 - skilled nursing (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
--- OUTSIDE RECORDS SUMMARY | 2025-11-07 12:59 | XMS_ITS | Patient Health Record ---
Author Organization [facility] Address [address] [place] [address] Care Team Providers Care Communications Engineer Name Role Phone Gwendolyn Julian MD, Pedro Primary Care Provide r Unavailable Favian Hardin Jr Unavailable Reason For Referral No Information Plan Of Treatment No Information Insurance Providers Payer Name Payer Address Payer Phone Subscriber Number Group Number Insured Name Patient Relationship to Insured Coverage Start Date Coverage End Date MEDICARE OF [facility] [address] [facility] [place] [id number] [phone] [id number] LILY RINCON Self - patient is the insured
--- OUTSIDE RECORDS SUMMARY | 2025-11-07 12:59 | XMS_ITS | Encounter Summary ---
Author Organization [employer] Address [address] [facility] 7t [place] [address] Care Team Providers Care Mold Insert Changer Name Role Phone Pedro Pulliam MD Primary Care Provide r Niko Salamanca MD Unavailable [phone] Summer Wills MD Unavailable [phone] Reason for Visit * Reason Comments Med Refill Encounter Details Date Type Department Care Team (Late st Contact Info) Description 08/19/2025 Refill [facility] [address] [place], [place] [phone] Pedro Pulliam MD [address] [place], [place] [phone] Vitamin D deficiency Social History Tobacco Use [...] documented as of this encounter Care Teams Mold Insert Changer Relationship Specialty Start Date End Date Pedro Pulliam MD [address] [place] [address] PCP - General Internal Medicine 09/10/14 Niko Salamanca MD [address] [place] [address] Nephrology 01/16/25 Summer Wills MD [address] [place] [address] Hematology and Oncology 06/27/25 documented as of this encounter
--- OUTSIDE RECORDS SUMMARY | 2025-11-07 13:00 | XMS_ITS | Clinical Summary ---
Author Organization [facility] ity Address [address] [place] [address] Care Team Providers Care Anglesmith Helper Name Role Phone Unavailable Primary Care [...] Documents on File Type Date Recorded Patient Strap Folding Machine Operator Expl anation Health Care Decision (hx) 01/10/2020 AD PHILLIP DIRECTIVE
--- OUTSIDE RECORDS SUMMARY | 2025-11-07 13:00 | XMS_ITS | Encounter Summary ---
Author Organization [facility] Address [address] [place] [address] Phone Care Team Providers Care Athletic Shoe Designer Name Role Phone Unavailable Primary Care Provider Unavailabl e Encounter Details Date Type Department Care Team (Late st Contact Info) Description 10/28/2018 Ancillary Orders [facility] [address] [facility] 3rd Floor, [address] [place], [place] [phone] Felton Triana MD [address] [place] [address] [email or web address] Social History Tobacco Use Types Packs/Day Years [...] is not the complete legal health record.[facility]
--- OUTSIDE RECORDS SUMMARY | 2025-11-07 13:00 | XMS_ITS | Encounter Summary ---
Author Organization [employer] Address [address] [facility] 7t [place] [address] Care Team Providers Care Fuel Operator Name Role Phone Pedro Pulliam MD Primary Care Provide r Niko Salamanca MD Unavailable [phone] Summer Wills MD Unavailable [phone] Reason for Visit * Reason Onset Date Comments Med Refill 2023 Encounter Details Date Type Department Care Team (Late st Contact Info) Description 2023 Refill [facility] 230 [place], [place] [phone] Pedro Pulliam MD 230 [place], [place] [phone] Atrial fibrillation, unspecified type (CMS/HCC) (Primary Dx) [...] Primary documented in this encounter Care Teams Fuel Operator Relationship Specialty Start Date End Date Pedro Pulliam MD 230 [place] [address] PCP - General Internal Medicine 09/10/14 Niko Salamanca MD [address] [place] [address] Nephrology 01/16/25 Summer Wills MD [address] [place] [address] Hematology and Oncology 06/27/25 documented as of this encounter
--- OUTSIDE RECORDS SUMMARY | 2025-11-07 13:00 | XMS_ITS | Encounter Summary ---
Author Organization [facility] Address [address] [place] [address] Phone Care Team Providers Care Sales Program Manager Name Role Phone Unavailable Primary Care Provider Unavailabl e Encounter Details Date Type Department Care Team (Late st Contact Info) Description 10/28/2018 Ancillary Orders [facility] [address] [place] [address] [place] [address] Felton Triana MD [address] [place] [address] [email or web address] Bradycardia Social History Tobacco Use Types Packs/Day [...]
--- OUTSIDE RECORDS SUMMARY | 2025-11-07 13:00 | XMS_ITS | Encounter Summary ---
Author Organization [employer] Address [address] [facility] 7t [place] [address] Care Team Providers Care Blood Splatter Analyst Name Role Phone Pedro Pulliam MD Primary Care Provide r Niko Salamanca MD Unavailable [phone] Summer Wills MD Unavailable [phone] Reason for Visit * Reason Onset Date Comments OV 03/1602/17/2024 Encounter Details Date Type Department Care Team (Late st Contact Info) Description 02/17/2024 Telephone [facility] 230 [place], [place] [phone] Pedro Pulliam MD 230 [place], [place] [phone] OV 03/16 Social History Tobacco Use Types [...] any questions you can contact pt at [phone]. documented in this encounter Plan of Treatment Not on file documented as of this encounter Visit Diagnoses Not on filedocumented in this encounter Additional Health Concerns Assessment Noted Time PHQ-9 Depression Total Score: 1 09/23/20 23 1:21 PM EST documented as of this encounter Care Teams Blood Splatter Analyst Relationship Specialty Start Date End Date Pedro Pulliam MD [address] [place] [address] PCP - General Internal Medicine 09/10/14 Niko Salamanca MD [address] [place] [address] Nephrology 01/16/25 Summer Wills MD [address] [place] [address] Hematology and Oncology 06/27/25 documented as of this encounter
--- OUTSIDE RECORDS SUMMARY | 2025-11-07 13:00 | XMS_ITS | Encounter Summary ---
Author Organization [employer] Address [address] [place] [address] 7t [place] [address] Care Team Providers Care Traffic Police Officer Name Role Phone Pedro Pulliam MD Primary Care Provide r Niko Salamanca MD Unavailable [phone] Summer Wills MD Unavailable [phone] Encounter Details Date Type Department Care Team (Late st Contact Info) Description 02/25/2023 Orders Only [facility] MED[facility]INE 230 [place] [address] Shanita Pfeiffer LPN Social History Tobacco Use [...] on filedocumented in this encounter Care Teams Traffic Police Officer Relationship Specialty Start Date End Date Pedro Pulliam MD 230 [place] [address] PCP - General Internal Medicine 09/10/14 Niko Salamanca MD [address] [place] [address] Nephrology 01/16/25 Summer Wills MD 575 [place] [address] Hematology and Oncology 06/27/25 documented as of this encounter
--- OUTSIDE RECORDS SUMMARY | 2025-11-07 13:00 | XMS_ITS | Clinical Summary ---
Author Organization [facility] Address [address] [address] Phone Care Team Providers Care Health Policy Analyst Name Role Phone Unavailable Primary Care [...] file Medical Devices Not on file Insurance [facility] MEDICARE REPLACEMENT ANTOINE WANG [id number] [place] [address] MEDICARE REPLACEMENT [facility] MEDICARE REPLACEMENT [facility] MEDICARE [place] [place] [address] MEDICARE REPLACEMENT [facility] MEDICARE REPLACEMENT [facility] MEDICARE REPLACEMENT [facility] MEDICARE REPLACEMENT Additional Source Comments The information contained in this document represents components of the legal health record. It is not the complete legal health record.[facility]
--- OUTSIDE RECORDS SUMMARY | 2025-11-07 13:00 | XMS_ITS | Encounter Summary ---
Author Organization [employer] Address [address] [facility] 7t [place] [address] Care Team Providers Care Instructor Robotics Name Role Phone Pedro Pulliam MD Primary Care Provide r Niko Salamanca MD Unavailable [phone] Summer Wills MD Unavailable [phone] Encounter Details Date Type Department Care Team (Late st Contact Info) Description 01/06/2023 Orders Only [facility] [address] [place] [address] Shira Castano LPN Social History Tobacco Use [...] on filedocumented in this encounter Care Teams Instructor Robotics Relationship Specialty Start Date End Date Pedro Pulliam MD 230 [place] [address] PCP - General Internal Medicine 09/10/14 Niko Salamanca MD [address] [place] [address] Nephrology 01/16/25 Summer Wills MD 575 [place] [address] Hematology and Oncology 06/27/25 documented as of this encounter
--- OUTSIDE RECORDS SUMMARY | 2025-11-07 13:00 | XMS_ITS | Clinical Summary ---
Author Organization [employer] Address 75 [facility] 7t [place] [address] Care Team Providers Care Optometric Aide Name Role Phone Pedro Pulliam MD Primary Care Provide r Niko Salamanca MD Unavailable [phone] Summer Wills MD Unavailable [phone] Allergies No known active allergies Medications [...] 2 times daily. 15 mL 5 Active cholecalciferol (Vitamin D-3) 25 MCG tabletIndications: Vitamin D deficiency TAKE 1 TABLET BY MOUTH EVERY DAY 90 tablet 1 5 Active warfarin (Coumadin) 5 MG tabletIndications: Atrial fibrillation, unspecified type (CMS/HCC) (HCC) TAKE 1 TABLET BY MOUTH EVERY DAY DIRECTED BY COUMADIN CLINIC 90 tablet 3 5 Active atorvastatin (Lipitor) 80 MG tabletIndications: Mixed hyperlipidemia TAKE 1 TABLET BY MOUTH EVERY DAY AT BEDTIME 90 tablet 1 10/08/2025 9:12 AM EST 5 Active Ferrous Sulfate (iron) 325 (65 Fe) MG tabletIndications: Iron deficiency TAKE 1 TABLET BY MOUTH EVERY DAY 90 tablet 1 10/08/2025 9:12 AM EST 5 Active amLODIPine (Norvasc) 5 MG tabletIndications: Primary hypertension TAKE 1 TABLET BY MOUTH EVERY DAY 90 tablet 1 10/08/2025 9:12 AM EST 5 Active Active Problems Problem Noted Date [...] pt currently undergoing PT with good results. [facility] health care 09/23/2023 Assessment & Plan (07/17/2025 2:10 [...] diverticul[place] [facility] [place] [...] past by his vascular surgeon at [facility] (Dr Lind) whose recommendation was conservative treatment, he saw NO role for any type of surgical intervention. He recommended to repeat the scan in 1 year and continue to take Asa 81 mg po daily. Pt was last seen by his investment counselor at [facility] 09/14/2023 recommended [...] and lasix 20 mg daily prescribed by Chemical Weigher. Off Lisinopril 40 mg po daily (stopped by Certified Prosthetist 04/01) I had lowered his Lasix due [...] and lasix 20 mg daily prescribed by Chemical Weigher. Pt is off Lisinopril 40 mg po daily (stopped by Certified Prosthetist 04/01) I had recently lowered his Lasix [...] and lasix 20 mg daily prescribed by Chemical Weigher. I had recently lowered his Lasix due [...] and lasix 20 mg daily prescribed by Chemical Weigher. I had recently lowered his Lasix due [...] Am and 20 mg PM prescribed by Chemical Weigher. I had recently lowered his Lasix due [...] Am and 20 mg PM prescribed by Chemical Weigher. Pt developed some bilateral ankle edema due [...] Furosemide 20 mg po BID prescribed by Chemical Weigher. Pt developed some bilateral ankle edema due [...] Furosemide 20 mg po BID prescribed by Chemical Weigher. Pt developed some bilateral ankle edema due [...] impression. Plan: Breast center referral at [facility] Assessment & Plan (02/01/2024 1:36 PM EDT): [...] Encounters Date Type Department Care Team Description 11/07/2025 Orders Only GENERIC EXTERNAL DATA DEPARTMENT Provider, Generic External Data 10/24/2025 Orders Only GENERIC EXTERNAL DATA DEPARTMENT Provider, Generic External Data 10/01/2025 Refill [facility] [address] [place] [address] Pedro Pulliam MD Mixed hyperlipidemia; Iron deficiency; Primary hypertension 09/26/2025 Orders Only GENERIC EXTERNAL DATA DEPARTMENT Provider, Generic External Data 09/05/2025 Orders Only GENERIC EXTERNAL DATA DEPARTMENT Provider, Generic External Data 08/31/2025 Orders Only GENERIC EXTERNAL DATA DEPARTMENT Provider, Generic External Data 08/31/2025 Telephone [facility] [address] [place] [address] Pedro Pulliam MD Medication Question 08/22/2025 Orders Only GENERIC EXTERNAL DATA DEPARTMENT Provider, Generic External Data 08/19/2025 Refill [facility] 230 [place] [address] Pedro Pulliam MD Vitamin D deficiency 08/15/2025 Orders Only GENERIC EXTERNAL DATA DEPARTMENT Provider, Generic External Data 08/10/2025 Orders Only GENERIC EXTERNAL DATA DEPARTMENT Provider, Generic External Data 08/08/2025 Telephone [facility] [address] [place], [place] [phone] Pedro Pulliam MD Critical INR 08/08/2025 Orders [...] 04/11/2025 04/11/2024, 04/11/2024 COVID-19 Vaccine ( - season) 2025 11/11/2021, 03/05/2021, 02/05/2021 Influenza Vaccine (#1) 2025 , 09/23/2023, 09/29/2022, Additional history exists Depression Screening 10/17/2025 10/17/2024, 10/17/20 SDOH Screening 01/02/2026 01/02/2025 Tobacco Screening 07/17/2026 [...] Comments PROTHROMBIN TIME WHOLE BLD POC Routine 11/07/2025 11:34 AM EST ~PT, ~INR - ANTI COAG CLINIC Routine 11/07/2025 11:34 AM EST PROTHROMBIN TIME WHOLE BLD POC Routine 10/24/2025 [...] COAG CLINIC Routine 08/08/2025 1:10 PM EDT LIPID PANEL, STANDARD Routine 01/16/2025 9:13 AM EDT Mixed hyperlipidemia BI MAMMOGRAM DIAGNOSTIC TOMOSYNTHESIS BILATERAL Routine 04/11/2024 3:15 PM EDT Gynecomastia ZZZ HISTORICAL HEPATITIS C AB W/REFL TO HCV RNA, QN, PCR Routine 12/24/2021 8:24 AM EST from Last 3 Months or Most Recently Relevant to Health Maintenance Results * (ABNORMAL) PROTHROMBIN TIME WHOLE BLD POC (11/07/2025 11:34 AM EST) Only the most recent of8 resultswithin the time period is included. Protime 26.0(H) 11.1 - 13.5 sec [facility] 11/07/2025 11:3 4 AM EST 11/07/2025 11:35 AM EST us Generic External Data Provider LAB BLOOD ORDERAB LES Final Result [facility] [address] [place] [phone] * (ABNORMAL) ~PT, ~INR - ANTI COAG CLINIC (11/07/2025 11:34 AM EST) Only the most recent of8 resultswithin the time period is included. Pathologist [facility] Prothrombin Time INR 2.2(H) 0.9 - 1.1 [facility] Comment:METER #: [id number] TERNATIONAL NORMALIZED RATIO (INR) REFERENCE RANGES Reference RangeFor patients not on anticoagulant therapy: 0.9 - 1.1INR ranges for oral anticoagulanttherapy:For prevention and treatment of venous thrombosis and pulmonary embolism: 2.0 - 3.0For acute myocardial infarction with aspirin therapy: 2.0 - 3.0For acute myocardial infarction without aspirin therapy: 3.0 - 4.0For patients with mechanical prosthetic heart valves: 2.5 - 3.5 11/07/2025 11:3 4 AM EST 11/07/2025 11:35 AM EST us Generic External Data Provider LAB BLOOD ORDERAB LES Final Result Performing Organization Address [facility] de Phone Number [facility] [address] [place] [phone] * (ABNORMAL) CBC auto differential (08/31/2025 [...] BLOOD ORDERAB LES Edited Result - Final [facility] [address] [place] [address] [phone] * (ABNORMAL) Urine Protein, Total, Random without Creatinine (08/31/2025 9:26 AM EDT) Protein, Total, Random Urine 28(H) <12 mg/dL [facility] 08/31/2025 9:26 AM EDT 08/31/2025 12:23 PM EDT Generic External Data Provider LAB URINE ORDERAB LES Final Result Performing Organization Address [facility]/ZIP Co de Phone Number [facility] [address] [place] [phone] * Creatinine, Random Urine (08/31/2025 9:26 AM EDT) Creatinine, Urine 98.99 mg/dL [facility] 08/31/2025 9:26 AM EDT 08/31/2025 12:23 PM EDT tado External Data Provider LAB URINE ORDERAB LES Final Result Performing Organization Address [facility]/ZIP Co de Phone Number [facility] [address] [place] [phone] * (ABNORMAL) Urinalysis Complete (08/31/2025 9:26 AM EDT) Color Urine Yellow [facility] Appearance Urine Clear [facility] PH 5.0 5.0 - 9.0 [facility] Glucose Urine UA Negative Negative mg/dL [facility] Urine Blood Trace(A) Negative [facility] Specific [place] - Urine 1.010 1.005 - 1.025 [facility] Urine Protein 30 (1+)(A) Neg-Trace mg/dL [facility] Urine Ketones Negative Negative mg/dL [facility] Nitrite Urine Negative Negative [facility] Leukocyte Esterase Urine Negative Negative [facility] RBC Urine 0-2 0 - 2 /HPF [facility] Urine WBC 0-5 0 - 5 /HPF [facility] Urine Squamous Epithelial Cell 0-2 0 - 2 /HPF [facility] Urine Bacteria None Seen None Seen [facility] Hyaline Casts, Urine 3-5 0 - 2 /LPF [facility] 08/31/2025 9:26 AM EDT 08/31/2025 12:23 PM EDT Generic External Data Provider LAB URINE ORDERAB LES Final Result Performing Organization Address [facility]/ZIP Co de Phone Number [facility] [address] [place] [address] [phone] * (ABNORMAL) Immunofixation, Serum (08/31/2025 9:26 AM EDT) IMMUNOGLOBULIN G 1869(A) 600 - 1540 mg/dL [facility] IMMUNOGLOBULIN A 290 70 - 320 mg/dL [facility] Immunoglobulin M 61 50 - 300 mg/dL [facility] Comment:THIS TEST WAS PERFOR MED AT:[facility] [place] [phone] SEGURA MD Immunofixation Result SEE NOTE [facility] Comment:Faint IgG kappa mono clonal band present. 08/31/2025 9:26 AM EDT 08/31/2025 11:20 AM EDT us Generic External Data Provider LAB BLOOD ORDERAB LES Final Result Performing Organization Address [facility]/ZIP Co de Phone Number [facility] [address] [place] [address] [phone] * (ABNORMAL) Protein, Total and Protein??Electrophoresis [...] [facility] PES-Abn Protein Band 3 [facility] Prot Elec - Interpretation SEE NOTE [facility] Comment:Evaluation reveals a restricted band (M-spike)migrating in the gamma globulin region. If notalready requested, Immunofixation should beconsidered.THIS TEST WAS PERFORMED AT:[facility] [place] [phone] SEGURA MD 08/31/2025 9:26 AM EDT 08/31/2025 11:20 AM EDT us Generic External Data Provider LAB BLOOD ORDERAB LES Final Result [facility] [address] [place] [address] [phone] * (ABNORMAL) Basic Metabolic Panel (08/31/2025 9:26 AM EDT) Sodium 139 135 - 145 mmol/L PETER [...] Kidney Disea se: Estimated GFR < 60 mL/min/1.75q4Vugipa Kidney Disease: Estimated GFR < 15 mL/min/1.73m2 Glucose 85 60 - 115 mg/dL [facility] Calcium 8.2(L) 8.4 - 10.2 mg/dL [facility] 08/31/2025 9:26 AM EDT 08/31/2025 11:20 AM EDT us Generic External Data Provider LAB BLOOD ORDERAB LES Final Result [facility] [address] [place] [address] [phone] * (ABNORMAL) Lipid Panel, Standard (01/16/2025 9:13 AM EDT) Triglycerides 40 <150 mg/dL [facility] Comment:Desirable Triglyceri de: less than [...] 190 mg/dL HDL Cholesterol 27(L) >40 mg/dL [facility] Comment:Desirable HDL: great er than 40 mg/dL Note: This HDL assay may give artificially low results in patients with liver disease. Blood Venous blood specimen / Unknown 01/16/2025 9:13 AM EDT 01/16/2025 11:29 AM EDT us Pedro Julian MD LAB BLOOD ORDERABLES Final Result [facility] [address] [place] [address] [phone] * BI Mammogram Diagnostic Tomosynthesis Bilateral (04/11/2024 3:15 PM EDT) Anatomical Region Laterality Modality Breast Bilateral Mammography 04/11/2024 3:15 PM EDT Narrative 04/11/2024 4:59 PM EDT [facility] [address] [place] [address] Mammography Report Signed Patient: Jamie Carpio MR#: [id number] : 1945 Acct:[id number] Age/Sex: 79 / M ADM Date: 04/11/24 Loc: HO.MAMMO Attending Dr: Pedro Webber MD Ordering Physician: Pedro Webber MD Resu lts: 2Benign Findings Date of Service: 04/11/24 Follow Up: 1 Year From [facility] Mammogram Procedure(s): MM tomosynthesis diagnostic BI Accession Number(s): [id number] cc: Pedro Webber MD EXAMINATION: MM DIAGNOSTIC [...] in OV> 04/11/24 1654 DD/ 1515 TD/TT: Survey Research Teacher: Procedure Note Donotuseinterpreter, Image - 04/11/2024 [facility] [address] [place], [place] [address] Mammography Report Signed Patient: Rik Carpio#: [id number] : 6Acct:[id number] Age/Sex: 79 / MADM Date: 04/11/24 Loc: [facility] Attending Dr: Pedro Webber MD Ordering Physician: Pedro Webber MDResu lts: 2Benign Findings Date of Service: 04/11/24Follow Up: 1 Year From Orig inal Mammogram Procedure(s): MM tomosynthesis diagnostic BI Accession Number(s): [id number] cc: Pedro Webber MD EXAMINATION: MM DIAGNOSTIC [...] in OV> 04/11/24 1654 DD/ 1515 TD/TT: Survey Research Teacher: Pedro Julian MD IMG BI PROCEDURES Fin al Result * HEPATITIS C AB W/REFL TO HCV RNA, QN, PCR (12/24/2021 8:24 AM EST) HEPATITIS C ANTIBODY NON-REACT SIL NON-REACT SIL [facility] INDEX 0.01 <1.00 [facility] Comment: HCV antibody was non-reactive. There is no laboratory evidence of HCV infection. In most cases, no further action is required. However, if recent HCV exposure is suspected, a test for HCV RNA (test code 98543) is suggested. For additional information please refer to http://education.Sing [employer] Delicious/faq/JYJ59w2 (This link is being provided for informational/ educational purposes only.) 12/24/2021 8:24 AM EST Pedro Julian MD HISTORICAL/NON ORDERA BLE LABS Final Result [facility] [address] from Last 3 Months or Most Recently Relevant to Health Maintenance Insurance [facility] OPTIONS (HMO D-SNP) ANTOINE WANG [id number] * Guarantor: Jamie Carpio Account Type Relation to Patient Date of Phone Billing Address Personal/Family Self [address] CHERYLE Webber Care Teams Optometric Aide Relationship Specialty Start Date End Date Pedro Pulliam MD [address] [place] [address] PCP - General Internal Medicine 09/10/14 Niko Salamanca MD [address] [place] [address] [address] [place] [address] Nephrology 01/16/25 Summer Wills MD [address] [place] [phone] Hematology and Oncology 06/27/25
--- OUTSIDE RECORDS SUMMARY | 2025-11-07 13:00 | XMS_ITS | Patient Health Record ---
Author Organization - [facility] Address [address] [place] [address] Care Team Providers Care Soda Maker Name Role Phone Vivian Aki Lewiss Unavailable NORY BALES Unavailable [phone] ISAAC RICHMOND Unavailable [phone] Allergies No Known Allergies Reason For Referral [...] W/U Status Risk Notes Problem Essential hypertension (92665643) Essential hypertension (I10) Active confirmed Problem Hyperlipidaemia (20798097) Hyperlipidemia, unspecified hyperlipidemia type (E78.5) Active confirmed Problem Iron deficiency anemia (93835717) Iron deficiency anemia, unspecified iron deficiency anemia type (D50.9) Active confirmed Problem Walking disability (612180477) Ambulatory dysfunction (R26.2) Active confirmed Problem Glaucoma (40888134) Glaucoma of both eyes, unspecified glaucoma type (H40.9) Active confirmed Problem History of alcohol use disorder (situation) (7255912179) History of alcohol abuse (F10.11) Active confirmed Problem Atrial fibrillation (76085376) Paroxysmal A-fib (I48.0) Active confirmed Problem Obstructive sleep apnea syndrome (69972610) KARINA on CPAP (G47.33) Active confirmed Vital Signs Heart Rate 41 /min 11/17/2024 Blood pressure diastolic 53 mm Hg 11/17/2024 Height-cm 175.26 cm 11/17/2024 Weight-kg 86.18 kg 11/17/2024 Height 69 in 11/17/2024 Blood pressure systolic 120 mm Hg 11/17/2024 Weight 190 lbs 11/17/2024 BMI 28.06 kg/m2 11/17/2024 Encounters Encounter Location Date Provider Diagnosis - [facility] [address] [place] [address] 11/17/2024 NORY BALES Glaucoma of both eye s, unspecified glaucoma type H40.9 ; Paroxysmal A-fib I48.0 ; Ambulatory dysfunction R26.2 ; Essential hypertension I10 ; Iron deficiency anemia, unspecified iron deficiency anemia type D50.9 ; KARINA on CPAP G47.33 ; Hyperlipidemia, unspecified hyperlipidemia type E78.5 and History of alcohol abuse F10.11 - [facility] [address] [place] [address] 11/24/2024 NORY BALES [facility] [address] [place] [address] 12/18/2024 ISAAC RICHMOND [facility] [address] [facility] [place] [address] 01/12/2025 NORY BALES [facility] [address] [place] [address] 02/20/2025 NORY BALES - [place] - [facility] [address] [place] [address] 03/27/2025 NORY Gregorio [place] - [facility] [address] [facility] [address] [place] [address] 04/16/2025 NORY BALES - [place] - [facility] [address] [facility] [address] [place] [address] 05/18/2025 NORY Gregorio [place] - [facility] [address] [facility] [address] [place] [address] 07/02/2025 NORY Gregorio [place] - [facility] [address] [facility] [address] [place] [address] 07/25/2025 NORY BALES - [place] - [facility] [address] [address] 11/28/2024 NORY Gregorio [place] - [facility] [address] [facility] [address] [place] [address] 12/19/2024 ISAAC HERNANDEZ - [facility] [address] [place] [address] 01/15/2025 NORY Gregorio [place] - [facility] [address] [address] 01/16/2025 NORY Gregorio [place] - [facility] [address] [address] 02/08/2025 NORY Gregorio [place] - [facility] [address] [facility] [address] [place] [address] 02/20/2025 NORY Gregorio [place] - [facility] [address] [facility] [address] [place] [address] 03/29/2025 NORY HERNANDEZ - [facility] [address] [place] [address] 04/03/2025 NORY BALES Assessments Encounter Date Diagnosis [...] aspirin and to discuss this with the Gun Stock Checker as the combination of aspirin and coumadin [...] fair. 12/18/2024 Member/Ca regiver contacted for health gymnastic coach visit. Reviewed the call purpose. Confirmed member name and birthdate. Explanation of health coaching services: Health coaching assists people in making improvements in their health that reflect their values and priorities. A health gymnastic coach works with you to take small [...] Member co ntacted for CCM Monthly. Health gymnastic coach confirmed member name and birthdate. CCM [...] 03/27/2025 Member contacted for CCM Monthly. Health gymnastic coach confirmed member name and birthdate. CCM program touchpoint briefly described. Member has no changes in condition or concerns to report. Member had no acute events. Discussion on Medication and Appointment Compliance and Healthy Eating. Member reported he is having ear pain, health gymnastic coach offered triage but member denied at this time. Member has PCP appointment tomorrow, recommended for member to request earlier visit if possible. Member will be following up with PCP regarding CPAP machine. Member has no known upcoming appointments. [facility] next program touchpoint briefly described. Member voiced understanding for the call and the support. 31/05 line reinforced. 04/16/2025 Member was contacted for a health gymnastic coach visit. Reviewed the purpose of the [...] he likes it. Reviewed transportation services with [facility]. He takes himself to his appointments. He considers all areas of his health the most important. He enjoyed walking in a park recently but his foot pain limits his movement. He has a book for bed exercises and, as a result, declined a bed exercise resource. Explained inSTED. He stated he called [facility] for an earache (resolved, no acute needs) but was told medication couldn't be sent. No record of this. The health gymnastic coach stated it was not [facility] since there are records of member calls. He stated this was a month ago. He was able to go to a clinic and had his ear cleaned out and received medication. The health gymnastic coach summarized the call. Details below. Clinical support line reinforced for any and all acute needs. 05/18/2025 - Educated on 2 objectives based on the CUSTOMER SALES SPECIALIST/RN Care Plan - Caregiver/Member voiced understanding for the call and the support. 31/05 line reinforced. 07/02/2025 - Educated on 2 objectives based on the CUSTOMER SALES SPECIALIST/RN Care Plan Health gymnastic coach discussed with member about nutrition, physical activity and blood pressure monitoring. Member reported eating food low in sodium. The member stated sometimes walking but not being able to do it recently, due to swollen thighs. Health gymnastic coach suggested the member to communicating with the clinical team about the swollen thighs, but the member declined stating he had struggled with that for years. Health gymnastic coach inquired about blood pressure monitoring. The member stated monitoring blood pressure every day. - Member voiced understanding for the call and the support. 31/05 line reinforced. 07/25/2025 - Educated on 2 objectives based on the CUSTOMER SALES SPECIALIST/RN Care Plan - Caregiver/Member voiced understanding for the call and the support. 31/05 line reinforced. 02/20/2025 S: RN spoke with the member via [employer] ed[employer]ard for a care plan update. The [...] himself to schedule a visit with his set making machine operator, and the member refused RNs assistance. A: [...] Insured Coverage Start Date Coverage End Date [facility] [address] [address] [place] [phone] [id number] Jamie Shah Self - patient is the insured 8 [employer] of [place] [address] [place] [phone] [id number] Jamie Shah Self - patient is the [...]
--- OUTSIDE RECORDS SUMMARY | 2025-11-07 13:00 | XMS_ITS | Encounter Summary ---
Author Organization [employer] Address [address] [facility] 7[address] [place] [address] Care Team Providers Care Wallpaper Printer Name Role Phone Pedro Pulliam MD Primary Care Provide r Niko Salamanca MD Unavailable [phone] Summer Wills MD Unavailable [phone] Reason for Visit * Reason Comments Med Refill Encounter Details Date Type Department Care Team (Late st Contact Info) Description 06/02/2024 Refill [facility] [address] [place], [place] [phone] Pedro Pulliam MD [address] [place], [place] [phone] Primary hypertension; Stage 3 chronic kidney disease, [...] 3a or 3b CKD (CMS/HCC) ([facility]) Nonrheumatic tricuspid valve regurgitation documented in this encounter Additional Health Concerns Assessment Noted Time PHQ-9 Depression Total Score: 1 09/23/20 23 1:21 PM EST documented as of this encounter Care Teams Wallpaper Printer Relationship Specialty Start Date End Date Pedro Pulliam MD [address] [place] [address] PCP - General Internal Medicine 09/10/14 Niko Salamanca MD [address] [place] [address] Nephrology 01/16/25 Summer Wills MD [address] [place] [address] Hematology and Oncology 06/27/25 documented as of this encounter
--- OUTSIDE RECORDS SUMMARY | 2025-11-07 13:00 | XMS_ITS | Encounter Summary ---
Author Organization [employer] Address [address] [place] [address] 7[address] [place] [address] Care Team Providers Care Core Rescuer Name Role Phone Pedro Pulliam MD Primary Care Provide r Niko Salamanca MD Unavailable [phone] Summer Wills MD Unavailable [phone] Encounter Details Date Type Department Care Team (Late st Contact Info) Description 05/31/2023 Orders Only [facility] [address] [place] [address] Shanita Pfeiffer LPN Social History Tobacco Use [...] on filedocumented in this encounter Care Teams Core Rescuer Relationship Specialty Start Date End Date Pedro Pulliam MD [address] [place] [address] PCP - General Internal Medicine 09/10/14 Niko Salamanca MD [address] [place] [address] Nephrology 01/16/25 Summer Wills MD [address] [place] [address] Hematology and Oncology 06/27/25 documented as of this encounter
--- OUTSIDE RECORDS SUMMARY | 2025-11-07 13:01 | XMS_ITS | Encounter Summary ---
Author Organization [employer] Address [address] [place] [address] Care Team Providers Care Tractor Trailer Moving Van Driver Name Role Phone Pedro Pulliam MD Primary Care Provide r Niko Salamanca MD Unavailable [phone] Summer Wills MD Unavailable [phone] Encounter Details Date Type Department Care Team (Late st Contact Info) Description 11/07/2025 Orders Only GENERIC EXTERNAL DATA [...] [facility] Routine 11/07/2025 11:34 AM EST documented in this encounter Results * (ABNORMAL) PROTHROMBIN TIME WHOLE BLD POC (11/07/2025 11:34 AM EST) Protime 26.0(H) 11.1 - 13.5 sec [facility] 11/07/2025 11:3 4 AM EST 11/07/2025 11:35 AM EST us Generic External Data Provider LAB BLOOD ORDERAB LES Final Result Performing Organization Address City/State/[facility] Co de Phone Number [facility] [address] [place] [phone] * (ABNORMAL) ~PT, ~INR - ANTI COAG CLINIC (11/07/2025 11:34 AM EST) Prothrombin Time INR 2.2(H) 0.9 - 1.1 [facility] Comment:METER #: [id number] TERNATIONAL NORMALIZED RATIO (INR) REFERENCE RANGES Reference [...] Final Result [facility] [address] [place] [phone] documented in this encounter Visit Diagnoses Not on filedocumented in this encounter Additional Health Concerns Assessment Noted Time PHQ-9 Depression Total Score: 0 10/17/20 24 1:50 PM EST documented as of this encounter Care Teams Tractor Trailer Moving Van Driver Relationship Specialty Start Date End Date Pedro Pulliam MD [address] [place] [address] PCP - General Internal Medicine 09/10/14 Niko Salamanca MD [address] [place] [address] Nephrology 01/16/25 Summer Wills MD [address] [place] [address] Hematology and Oncology 06/27/25 documented as of this encounter
--- OUTSIDE RECORDS SUMMARY | 2025-11-07 13:01 | XMS_ITS | Encounter Summary ---
Author Organization [employer] Address [address] [facility] 7t [place] [address] Care Team Providers Care Aerospace Medicine Physician Name Role Phone Pedro Pulliam MD Primary Care Provide r Niko Salamanca MD Unavailable [phone] Summer Wills MD Unavailable [phone] Encounter Details Date Type Department Care Team (Late st Contact Info) Description 02/01/2023 Orders Only [facility] [address] [place] [address] Shira Castano LPN Social History Tobacco Use [...] on filedocumented in this encounter Care Teams Aerospace Medicine Physician Relationship Specialty Start Date End Date Pedro Pulliam MD [address] [place] [address] PCP - General Internal Medicine 09/10/14 Niko Salamanca MD [address] [place] [address] Nephrology 01/16/25 Summer Wills MD [address] [place] [address] Hematology and Oncology 06/27/25 documented as of this encounter
--- OUTSIDE RECORDS SUMMARY | 2025-11-07 13:01 | XMS_ITS | Clinical Summary ---
Author Organization [employer] [facility] Address [address] [address] Care Team Providers Care Forging Press Lever Tender Name Role Phone Pedro Snow MD Primary [...] age to complete this topic Care Teams Forging Press Lever Tender Relationship Specialty Start Date End Date Pedro Snow MD PCP - General 11/18/20
== END 2025-11-07 11:40 | disposition home or self-care (01) ==
LOC: HO.ACS 11:21
PROVIDERS: PCP Internal Medicine; Visit Provider Internal Medicine Medical Oncology
DX: Z79.01 Long term (current) use of anticoagulants (principal)

== ENCOUNTER → 2025-11-07 11:21 | Outpatient (BNVA) | payer OTHER, SELFPAY | PROVIDERS: PCP Internal Medicine; Visit Provider Internal Medicine Medical Oncology | DX: I48.0 Paroxysmal atrial fibrillation (principal); Z51.81 Encounter for therapeutic drug level monitoring; Z79.01 Long term (current) use of anticoagulants | CPT/HCPCS: 85610; 99211 ==